=== PATIENT | female | born 1965 | race Caucasian/White ===

== ENCOUNTER → 2017-08-20 | Outpatient (POV) | payer OTHER, SELFPAY | PROVIDERS: Family Provider Physician Assistant; PCP Physician Assistant; Visit Provider Specialist | DX: R20.2 Paresthesia of skin (principal); M79.642 Pain in left hand | CPT/HCPCS: 95886; 95908 ==

== ENCOUNTER → 2017-12-03 09:31 | Outpatient (POV) | payer OTHER, SELFPAY ==
[2017-12-03 09:42] VITALS: BP 147/89; PULSE 84; RESP 22; O2SAT 96; BMI 52.2
--- NOTE | 2017-12-03 09:55 | P.CONS_ITS ---
[facility] Pain Management SOAP Note Subjective:: This patient is a pleasant 52-year-old white female who we are treating for sacroiliitis. She is gotten benefit from previous right SI joint injections. Her last one was back in August. Her pain is just now starting to come back. She is also having some pain on the left side. She is tender over the left SI joint. She does have positive Ellen's test bilaterally. I believe she would benefit from bilateral SI joint injections under fluoroscopy. She is also in the early stages of being approved for gastric sleeve surgery. She will keep us posted as to her progress. She also continues to try to lose weight by dieting and activity. Objective:: Alert and oriented ?3 no acute distress. Tender over both SI joints. Positive Ellne's test bilaterally. Motor strength of the lower extremities is 5/5. There is no gross sensory deficit. Patient does have an antalgic gait. Assessment:: Sacroiliitis bilateral. Degenerative disc disease of lumbar spine with lumbar radiculopathy symptoms. Plan:: We will seek approval and plan on bilateral SI joint injections under fluoroscopy.
== END ==
PROVIDERS: Family Provider Emergency Medicine; PCP Physician Assistant; Visit Provider Anesthesiology
DX: M46.1 Sacroiliitis, not elsewhere classified (principal); M54.16 Radiculopathy, lumbar region
CPT/HCPCS: 99212

== ENCOUNTER → 2017-12-04 09:07 | Outpatient (REF) | payer OTHER, SELFPAY ==
[2017-12-04 14:11] LABS: Basophils % 0.6 % (0.1-2.0); Eosinophils # 0.3 K/mm3 (0.0-0.4); Eosinophils % 4.3 % (0.1-12.0); Hematocrit 44.2 % (37.0-47.0); Lymphocytes # 1.7 K/mm3 (0.7-4.5); Lymphocytes % 24.8 K/mm3 (10-50); Mean Corpuscular HGB Conc 31.6 g/dL (31.8-35.4); Mean Corpuscular Hemoglobin 30.2 pg (27.0-31.2); Mean Corpuscular Volume 95.7 fl (81-99); Mean Platelet Volume 7.9 fl (7.4-10.4); Monocytes # 0.4 K/mm3 (0.1-1.0); Monocytes % 5.4 % (1.7-9.3); Neutrophils # 4.5 K/mm3 (1.8-7.8); Neutrophils % 64.9 % (37.0-80.0); Platelet Count 294 K/mm3 (142-424); Red Blood Count 4.62 M/mm3 (4.20-5.40); Red Cell Distribution Width 13.6 % (11.5-17.5); White Blood Count 6.9 K/mm3 (4.8-10.8)
[2017-12-04 14:12] LABS: Alanine Aminotransferase 31 U/L (12-78); Albumin Level 3.5 gm/dL (3.4-5.0); Albumin/Globulin Ratio 1.1 (1.1-1.8); Alkaline Phosphatase 153 U/L (46-116); Anion Gap 10.9 mEq/L (5-15); Aspartate Amino Transferase 16 U/L (15-37); Bilirubin,Total 0.3 mg/dL (0.2-1.0); Blood Urea Nitrogen 19 mg/dL (7-18); Calcium 8.8 mg/dL (8.5-10.1); Carbon Dioxide 30 mmol/L (21.0-32.0); Chloride 104 mmol/L (98-107); Chol/HDL Ratio 4.4 (1-3.5); Cholesterol 210 mg/dL (140-200); Creatinine,Serum 0.91 mg/dL (0.55-1.02); Estimated Glomerular Filt Rate 65 ml/min (>60); GFR (African American) 79 ML/MIN (>60); Globulin 3.3 gm/dl (1.3-3.2); Glucose 107 mg/dL (74-106); HDL Cholesterol 48 mg/dL (29-89); LDL Cholesterol 137 mg/dL (0-130); Potassium 4.9 mmoL/L (3.5-5.1); Sodium 140 mmol/L (136-145); T4 (Thyroxine) 9.2 ug/dl (4.7-13.3); Thyroid Stimulating Hormone 7.76 uIU/ml (0.358-3.740); Total Protein,Serum 6.8 gm/dL (6.4-8.2); Triglycerides 127 mg/dL (30-200); VLDL Cholesterol 25 mg/dL (0-40)
[2017-12-06 09:29] LABS: Vitamin D 25 Hydroxy 35.2 ng/mL (30.0-100.0)
== END ==
LOC: LAB 09:07
PROVIDERS: Visit Provider Physician Assistant
DX: I10 Essential (primary) hypertension (principal)
CPT/HCPCS: 80053; 80061; 82652; 84436; 84443; 85025

== ENCOUNTER 2017-12-13 11:57 | Day surgery (SDC) | payer OTHER, SELFPAY ==
[2017-12-13 12:10] VITALS: BP 140/76; PULSE 85; RESP 18; TEMP 36.6; O2SAT 98; BMI 50.3
[2017-12-13 12:29] VITALS: BP 159/95; PULSE 81; RESP 18
[2017-12-13 12:31] VITALS: BP 133/86; PULSE 80; RESP 20
--- NOTE | 2017-12-13 12:40 | HMH.PMPROC ---
- Procedure Date: 12/13/17 Time: 12:40 Anesthesiologist:: Valentin Wallis MD Complications:: None Pre-procedure Diagnosis:: Sacroiliitis Post-procedure Diagnosis:: Same Indications for Procedure:: This patient is a pleasant 52-year-old white female who we are treating for bilateral sacroiliitis. She is previously gotten injections into the right SI joint. She did well from these. Her last injection was in August. Her pain is returned. She now has pain over both hips. She is tender over both SI joints. She does have a positive Ellen's test bilaterally. We will do bilateral SI joint injections under fluoroscopy today. Procedure Details:: B/L SI joint injection under fluoroscopy Informed consent was obtained and the risks and benefits of the procedure was explained to the patient. The patient was taken to the procedure room and placed prone on the procedure table. The patient was prepped using ChloraPrep. The skin and subcutaneous tissues overlying the SI joints were anesthetized using lidocaine. I placed a 22-gauge needle first in the left SI joint and second in the right SI joint. Needle placement was confirmed with dye. After this we injected 5 mL bupivacaine 0.25% and Depo-Medrol 40 mg into each SI joint. Patient tolerated the procedure well with no complication. Plan and Disposition:: We will follow-up with her in 2 weeks. We will reevaluate her symptoms at that time.
[2017-12-13 13:10] VITALS: BP 146/69; PULSE 83; RESP 16; O2SAT 98
== END 2017-12-13 12:45 | disposition home or self-care (01) ==
LOC: SC.PAINP 11:58
PROVIDERS: Family Provider Emergency Medicine; PCP Physician Assistant; Visit Provider Anesthesiology
DX: M46.1 Sacroiliitis, not elsewhere classified (principal)
CPT/HCPCS: 27096; G0260; J1030; Q9966

== ENCOUNTER → 2018-01-07 09:20 | Outpatient (POV) | payer OTHER, SELFPAY ==
[2018-01-07 09:40] VITALS: BP 155/82; PULSE 78; RESP 20; BMI 42.9
--- NOTE | 2018-01-07 09:42 | HMH.PAINSOAP ---
[facility] Pain Management SOAP Note Subjective:: Patient is a pleasant 52-year-old white female who presents today for follow-up after her bilateral SI joint injections. Patient states she is 98% better on her left side and 50-70% better on her right side. Patient is currently going through weight loss journey. She is working towards a gastric sleeve. She is past her psychological evaluation. She continues to lose weight. She was originally 298 pounds she is lost 3 pounds in the last week. Patient is biking and walking every other day. Patient states she does not feel that she needs an injection at this time. Patient rates her pain a 4 out of 10 today. ROS General: no recent weight change, no fever, no sleep disturbances Respiratory: no cough, no shortness of air, no recurring pulmonary infections Cardiovascular/Peripheral Vascular: No chest pain, No palpitations, no edema, no shortness of breath. Gastrointestinal: no incontinence, normal bowel movements reported Genitourinary: no incontinence Musculoskeletal: Bilateral SI joint pain Psychiatric: normal mood/ affect, Neurological: [denies weakness in extremities], [denies balance issues] Objective:: Physical Exam General: Alert and oriented x3, no acute distress, pleasant and cooperative, [on room air] Lungs: Resps E/U, Symmetrical chest expansion, Eyes: PERRL Musculoskeletal: Flexion and extension of lumbar spine somewhat guarded secondary to pain, deep tendon reflexes normal, strength in upper and lower extremities [5/5], normal gait noted Neurological: speech clear, semiconductor wafers saw operator equal, no gross sensory deficits Assessment:: Sacroiliitis Plan:: We will follow-up with this patient in 3 months and reassess her symptoms at that time. Patient is doing well at this time. Patient will call us if she needs us prior to this. We will continue with weight loss and exercise. This note was dictated using voice recognition software and may contain errors or omissions
== END ==
PROVIDERS: Family Provider Emergency Medicine; PCP Physician Assistant; Visit Provider Clinical Nurse Specialist Family Health
DX: M46.1 Sacroiliitis, not elsewhere classified (principal)
CPT/HCPCS: 99212

== ENCOUNTER → 2018-03-04 09:56 | Outpatient (REF) | payer OTHER, SELFPAY ==
[2018-03-04 14:07] LABS: Basophils % 0.4 % (0.1-2.0); Eosinophils # 0.3 K/mm3 (0.0-0.4); Eosinophils % 3.7 % (0.1-12.0); Hematocrit 45.8 % (37.0-47.0); Hemoglobin 14.4 g/dL (12.2-16.2); Lymphocytes # 1.9 K/mm3 (0.7-4.5); Lymphocytes % 25.6 K/mm3 (10-50); Mean Corpuscular HGB Conc 31.5 g/dL (31.8-35.4); Mean Corpuscular Hemoglobin 28.4 pg (27.0-31.2); Mean Corpuscular Volume 90.2 fl (81-99); Mean Platelet Volume 7.9 fl (7.4-10.4); Monocytes # 0.4 K/mm3 (0.1-1.0); Monocytes % 5.1 % (1.7-9.3); Neutrophils # 4.7 K/mm3 (1.8-7.8); Neutrophils % 65.2 % (37.0-80.0); Platelet Count 340 K/mm3 (142-424); Red Blood Count 5.08 M/mm3 (4.20-5.40); Red Cell Distribution Width 13.4 % (11.5-17.5); White Blood Count 7.3 K/mm3 (4.8-10.8)
[2018-03-04 14:39] LABS: Alanine Aminotransferase 18 U/L (12-78); Albumin Level 3.6 gm/dL (3.4-5.0); Albumin/Globulin Ratio 1.1 (1.1-1.8); Alkaline Phosphatase 136 U/L (46-116); Anion Gap 15.4 mEq/L (5-15); Aspartate Amino Transferase 14 U/L (15-37); Bilirubin,Total 0.5 mg/dL (0.2-1.0); Blood Urea Nitrogen 13 mg/dL (7-18); Calcium 9.3 mg/dL (8.5-10.1); Carbon Dioxide 27 mmol/L (21.0-32.0); Chloride 101 mmol/L (98-107); Chol/HDL Ratio 4.1 (1-3.5); Cholesterol 192 mg/dL (140-200); Creatinine,Serum 0.76 mg/dL (0.55-1.02); Estimated Glomerular Filt Rate 80 ml/min (>60); GFR (African American) 97 ML/MIN (>60); Globulin 3.4 gm/dl (1.3-3.2); Glucose 106 mg/dL (74-106); HDL Cholesterol 47 mg/dL (29-89); LDL Cholesterol 121 mg/dL (0-130); Potassium 4.4 mmoL/L (3.5-5.1); Sodium 139 mmol/L (136-145); Thyroid Stimulating Hormone 6.23 uIU/ml (0.358-3.740); Triglycerides 119 mg/dL (30-200); VLDL Cholesterol 24 mg/dL (0-40)
[2018-03-05 12:49] LABS: Vitamin D 25 Hydroxy 43.7 ng/mL (30.0-100.0)
== END ==
LOC: LAB 09:56
PROVIDERS: Visit Provider Physician Assistant
DX: E03.9 Hypothyroidism, unspecified (principal); E78.5 Hyperlipidemia, unspecified
CPT/HCPCS: 80053; 80061; 82652; 84436; 84443; 85025

== ENCOUNTER → 2018-04-08 08:52 | Outpatient (POV) | payer OTHER, SELFPAY ==
[2018-04-08 09:21] VITALS: BP 155/76; PULSE 76; RESP 18; O2SAT 98; BMI 48.0
--- NOTE | 2018-04-08 09:46 | HMH.PAINSOAP ---
[facility] Pain Management SOAP Note Subjective:: Patient is a pleasant 51-year-old white female who presents today for discussion in regards to her increased back pain and left leg pain. Patient is having increased back pain. Patient is currently going through weight loss journey. She has stopped smoking. She is working towards a gastric sleeve. She has lost over 20 pounds. She has passed her psychological evaluation and continues to lose weight. Patient is biking and walking every other day. Patient states that her pain is about a 6 out of 10 and it is worse in her left foot at this time. ROS General: no recent weight change, no fever, no sleep disturbances Respiratory: no cough, no shortness of air, no recurring pulmonary infections Cardiovascular/Peripheral Vascular: No chest pain, No palpitations, no edema, no shortness of breath. Gastrointestinal: no incontinence, normal bowel movements reported Genitourinary: no incontinence Musculoskeletal: Back pain, left leg [place] Psychiatric: normal mood/ affect Neurological: [denies weakness in extremities], [denies balance issues] Objective:: Physical Exam General: Alert and oriented x3, no acute distress, pleasant and cooperative, [on room air] Lungs: Resps E/U, Symmetrical chest expansion, Eyes: PERRL Musculoskeletal: Flexion and extension of lumbar spine somewhat guarded secondary to pain, deep tendon reflexes normal, strength in upper and lower extremities [5/5], antalgic gait noted, positive straight leg raise test on the left side at 30? Neurological: speech clear, roof truss detailer equal, no gross sensory deficits Assessment:: Degenerative disc disease of the lumbar spine with lumbar radiculopathy Plan:: We will get a lumbar epidural steroid injection for this patient at L4-L5. Is not on any anticoagulation therapy. Patient's tried and failed physical therapy and stretching therapy. Patient has had good relief with these injections in the past. Wants to continue to be as functional as possible prior to her gastric surgery. This note was dictated using voice recognition software and may contain errors or omissions
--- NOTE | 2018-04-08 09:52 | P.CONS_ITS ---
[facility] Pain Management SOAP Note Subjective:: Patient is a pleasant 51-year-old white female who presents today for discussion in regards to her increased back pain and left leg pain. Patient is having increased back pain. Patient is currently going through weight loss journey. She has stopped smoking. She is working towards a gastric sleeve. She has lost over 20 pounds. She has passed her psychological evaluation and continues to lose weight. Patient is biking and walking every other day. Patient states that her pain is about a 6 out of 10 and it is worse in her left foot at this time. ROS General: no recent weight change, no fever, no sleep disturbances Respiratory: no cough, no shortness of air, no recurring pulmonary infections Cardiovascular/Peripheral Vascular: No chest pain, No palpitations, no edema, no shortness of breath. Gastrointestinal: no incontinence, normal bowel movements reported Genitourinary: no incontinence Musculoskeletal: Back pain, left leg [place] Psychiatric: normal mood/ affect Neurological: [denies weakness in extremities], [denies balance issues] Objective:: Physical Exam General: Alert and oriented x3, no acute distress, pleasant and cooperative, [ on room air] Lungs: Resps E/U, Symmetrical chest expansion, Eyes: PERRL Musculoskeletal: Flexion and extension of lumbar spine somewhat guarded secondary to pain, deep tendon reflexes normal, strength in upper and lower extremities [5/5], antalgic gait noted, positive straight leg raise test on the left side at 30? Neurological: speech clear, web press operator apprentice equal, no gross sensory deficits Assessment:: Degenerative disc disease of the lumbar spine with lumbar radiculopathy Plan:: We will get a lumbar epidural steroid injection for this patient at L4-L5. Is not on any anticoagulation therapy. Patient's tried and failed physical therapy and stretching therapy. Patient has had good relief with these injections in the past. Wants to continue to be as functional as possible prior to her gastric surgery. This note was dictated using voice recognition software and may contain errors or omissions
== END ==
PROVIDERS: Family Provider Emergency Medicine; PCP Physician Assistant; Visit Provider Clinical Nurse Specialist Family Health
DX: M54.16 Radiculopathy, lumbar region (principal)
CPT/HCPCS: 99212

== ENCOUNTER → 2018-04-12 09:42 | Outpatient (CLI) | payer OTHER, SELFPAY ==
[2018-04-12 10:41] VITALS: PULSE 83; PULSE 85
== END ==
PROVIDERS: Family Provider Emergency Medicine; PCP Physician Assistant; Visit Provider Physician Assistant
DX: R06.00 Dyspnea, unspecified (principal)
CPT/HCPCS: 94060; 94640

== ENCOUNTER → 2018-05-06 09:41 | Outpatient (POV) | payer OTHER, SELFPAY ==
[2018-05-06 09:53] VITALS: BP 129/77; PULSE 67; RESP 18; O2SAT 96; BMI 47.5
--- NOTE | 2018-05-06 10:03 | HMH.PAINSOAP ---
[facility] Pain Management SOAP Note Subjective:: Patient is a pleasant 53-year-old white female who we are treating for low back pain with left leg pain. Patient is status post one lumbar epidural steroid injection and states that she is in 0 pain today. Patient is doing extremely well. Patient is working toward a gastric sleeve. Patient has lost 33 pounds recently. Patient is feeling well good. ROS General: no recent weight change, no fever, no sleep disturbances Respiratory: no cough, no shortness of air, no recurring pulmonary infections Cardiovascular/Peripheral Vascular: No chest pain, No palpitations, no edema, no shortness of breath. Gastrointestinal: no incontinence, normal bowel movements reported Genitourinary: no incontinence Musculoskeletal: Back pain Psychiatric: normal mood/ affect Neurological: [denies weakness in extremities], [denies balance issues] Objective:: Physical Exam General: Alert and oriented x3, no acute distress, pleasant and cooperative, [on room air] Lungs: Resps E/U, Symmetrical chest expansion, Eyes: PERRL Musculoskeletal: Flexion and extension of lumbar spine somewhat guarded secondary to pain, deep tendon reflexes normal, strength in upper and lower extremities [5/5], normal gait noted Neurological: speech clear, quality control technician equal, no gross sensory deficits Assessment:: Degenerative disc disease of the lumbar spine with lumbar radiculopathy symptoms Plan:: We will follow-up the patient on an as-needed basis. Patient is going to call our office if she needs anything. This note was dictated using voice recognition software and may contain errors or omissions
--- NOTE | 2018-05-06 10:08 | XR_ITS ---
XR chest 2V HISTORY: Shortness of breath ITS.REASON: mild obstructive airway disease on PFT ORDERING PHYSICIAN: Alexandra Zepeda PATIENT AGE: 53 years COMPARISON: PA and lateral chest 12/16/2014 FINDINGS: The cardiomediastinal silhouette and pulmonary vascularity are within normal limits. The lungs are clear without infiltrates, suspicious nodules, or pleural effusions. There are mild degenerative changes lower thoracic spine.. IMPRESSION: Negative chest, no acute finding
== END ==
LOC: SC.PAIN 09:42 → RAD 10:08
PROVIDERS: Family Provider Emergency Medicine; PCP Physician Assistant; Visit Provider Clinical Nurse Specialist Family Health
DX: M51.16 Intervertebral disc disorders with radiculopathy, lumbar region (principal)
CPT/HCPCS: 71046; 99213

== ENCOUNTER → 2018-05-08 07:57 | Outpatient (CLI) | payer OTHER, SELFPAY ==
--- NOTE | 2018-05-08 07:58 | XR_ITS ---
XR foot wt bearing LT 3V HISTORY: ITS.REASON: pain ORDERING PHYSICIAN: Iram Landin DPM PATIENT AGE: 53 years COMPARISON: None FINDINGS: There is minimal hallux valgus and borderline pes planus. No fracture or dislocation. Mild hypertrophic changes are present at the distal aspect of the first metatarsal. There are osteoarthritic changes of the anterior aspect of the ankle joint with bony debris and osteophyte formation. No lytic or blastic change IMPRESSION: Minimal hallux valgus and borderline pes planus with osteoarthritic change of the ankle joint
--- NOTE | 2018-05-08 07:58 | XR_ITS ---
XR foot wt bearing RT 3V HISTORY: ITS.REASON: pain ORDERING PHYSICIAN: Iram Landin DPM PATIENT AGE: 53 years COMPARISON: None FINDINGS: There are mild osteoarthritic changes of the first metatarsophalangeal joint. Subcortical cystic change involves the distal aspect of the first metatarsal at 5 mm and may be due to a small subarticular cyst. There is mild flattening of the head of the second without sclerosis.. There is borderline pes planus. Flexion of the second toe. There are osteoarthritic changes of the ankle joint with bony hypertrophic change posteriorly involving the talus. Minimal hallux valgus IMPRESSION: Minimal hallux valgus with osteoarthritis of the first MTP joint with small subarticular cyst and mild pes planus
== END ==
PROVIDERS: Visit Provider Podiatrist
DX: B35.1 Tinea unguium (principal)
CPT/HCPCS: 73630; 87102; 87206; 87220

== ENCOUNTER → 2018-06-27 10:07 | Outpatient (REF) | payer OTHER, SELFPAY ==
[2018-06-27 14:06] LABS: Alanine Aminotransferase 19 U/L (12-78); Albumin Level 3.5 gm/dL (3.4-5.0); Albumin/Globulin Ratio 1.1 (1.1-1.8); Alkaline Phosphatase 160 U/L (46-116); Anion Gap 11.4 mEq/L (5-15); Aspartate Amino Transferase 14 U/L (15-37); Bilirubin,Total 0.4 mg/dL (0.2-1.0); Blood Urea Nitrogen 17 mg/dL (7-18); Calcium 9.3 mg/dL (8.5-10.1); Carbon Dioxide 30 mmol/L (21.0-32.0); Chloride 103 mmol/L (98-107); Cholesterol 222 mg/dL (140-200); Creatinine,Serum 0.88 mg/dL (0.55-1.02); Estimated Glomerular Filt Rate 67 ml/min (>60); GFR (African American) 82 ML/MIN (>60); Globulin 3.2 gm/dl (1.3-3.2); Glucose 103 mg/dL (74-106); HDL Cholesterol 56 mg/dL (29-89); LDL Cholesterol 139 mg/dL (0-130); Potassium 4.4 mmoL/L (3.5-5.1); Sodium 140 mmol/L (136-145); T4 (Thyroxine) 9.1 ug/dl (4.7-13.3); Thyroid Stimulating Hormone 4.84 uIU/ml (0.358-3.740); Total Protein,Serum 6.7 gm/dL (6.4-8.2); Triglycerides 137 mg/dL (30-200); VLDL Cholesterol 27 mg/dL (0-40)
[2018-06-27 15:12] LABS: Basophils % 0.5 % (0.1-2.0); Eosinophils # 0.2 K/mm3 (0.0-0.4); Eosinophils % 3.5 % (0.1-12.0); Hematocrit 40.9 % (37.0-47.0); Hemoglobin 13.1 g/dL (12.2-16.2); Lymphocytes # 1.8 K/mm3 (0.7-4.5); Lymphocytes % 31.3 K/mm3 (10-50); Mean Corpuscular Hemoglobin 29.4 pg (27.0-31.2); Mean Corpuscular Volume 91.9 fl (81-99); Mean Platelet Volume 7.5 fl (7.4-10.4); Monocytes # 0.3 K/mm3 (0.1-1.0); Monocytes % 5.5 % (1.7-9.3); Neutrophils # 3.5 K/mm3 (1.8-7.8); Neutrophils % 59.3 % (37.0-80.0); Platelet Count 332 K/mm3 (142-424); Red Blood Count 4.44 M/mm3 (4.20-5.40); Red Cell Distribution Width 14.6 % (11.5-17.5); White Blood Count 5.9 K/mm3 (4.8-10.8)
[2018-06-28 10:05] LABS: Vitamin D 25 Hydroxy 35.8 ng/mL (30.0-100.0)
== END ==
LOC: LAB 10:07
PROVIDERS: Visit Provider Nurse Practitioner Family
DX: E07.9 Disorder of thyroid, unspecified (principal); R53.83 Other fatigue
CPT/HCPCS: 80053; 80061; 82652; 84436; 84443; 85025

== ENCOUNTER → 2018-07-29 10:48 | Outpatient (POV) | payer OTHER, SELFPAY | PROVIDERS: Visit Provider Specialist | DX: M79.671 Pain in right foot (principal); M79.672 Pain in left foot | CPT/HCPCS: 95886; 95908 ==

== ENCOUNTER → 2018-08-15 14:39 | Outpatient (CLI) | payer OTHER, SELFPAY ==
--- NOTE | 2018-08-15 14:41 | CT_ITS ---
CT chest wo con HISTORY: Solitary pulmonary nodule, follow-up abnormal chest x-ray, pulmonary nodule ITS.REASON: RML nodule on CXR 07/13/18 ORDERING PHYSICIAN: SHARONA Dunn PATIENT AGE: 53 years COMPARISON: None Technique: Axial images obtained with sagittal and coronal reformats. All CT scans at the facility use one or more dose reduction, viz: automated exposure control, ma/kV adjustment per patient size (including targeted exams where dose is matched to indication, i.e. head), or iterative reconstruction technique. FINDINGS: There are coronary artery calcifications. Normal heart size without evidence of pericardial effusion. No mediastinal or hilar mass. Scattered small nodes are present in the mediastinum and axilla. 5 mm subpleural nodule right upper lobe posteriorly noncalcified and nonspecific. No central obstructing lesions evident. No suspicious pulmonary nodules are apparent. No effusions or infiltrates. Upper abdominal images shows prior gastric sleeve surgery. There are 2 calcified gallstones measuring up to 2 cm. Low-density changes are present involving the medial aspect of the spleen. This is nonspecific and measures 4.4 x 3 cm and could be due to an area of splenic infarction. There are no previous exams available for comparison. Follow-up is suggested. No acute bony anomalies. Fatty density is present in the left paraspinal muscles at the L1 region posteriorly on the left system with lipoma IMPRESSION: 1. No suspicious pulmonary nodules evident. 2. 5 mm subpleural nodule right upper lobe posteriorly. 6-12 month follow up suggested. 3. Low-density changes medial aspect of the spleen which could be due to prior splenic infarction. Stability may be confirmed with follow-up 4. Cholelithiasis
== END ==
PROVIDERS: PCP Physician Assistant; Visit Provider Physician Assistant
DX: R91.1 Solitary pulmonary nodule (principal)
CPT/HCPCS: 71250

== ENCOUNTER → 2018-08-29 09:52 | Outpatient (CLI) | payer OTHER, SELFPAY ==
--- NOTE | 2018-08-29 09:54 | CT_ITS ---
CT abdomen w con CLINICAL INDICATION: Follow-up splenic lesion ITS.REASON: changes in Spleen noted on CT chest ORDERING PHYSICIAN: SHARONA Dunn PATIENT AGE: 53 years COMPARISON: 08/15/2018 TECHNIQUE: Axial images obtained with sagittal and coronal reformats. All CT scans at the facility use one or more dose reduction, viz: automated exposure control, ma/kV adjustment per patient size (including targeted exams where dose is matched to indication, i.e. head), or iterative reconstruction technique. PROCEDURE: Oral Contrast: None IV Contrast: 75 mL of [id number]. FINDINGS: Lung bases are clear. There are multiple gallstones. There has been prior gastric sleeve surgery. The pancreas, adrenal glands, and kidneys have an unremarkable appearance. There is a well-defined geographic area of decreased attenuation involving the medial aspect of the spleen which measures up to 3.9 cm AP and 2 cm transverse. This may represent an area of splenic infarction appears slightly smaller than when compared to the previous study although that study was performed without contrast.. This may be due to an area of splenic infarction. There are few small lymph nodes in the retroperitoneum. The kidneys have an unremarkable appearance. There is some minimal stranding of the fat adjacent to the medial aspect of the spleen which is unchanged. No intestinal obstruction or free air. There is some increased density along the intra-abdominal wall right and could be due to prior surgery. There is degenerative disc disease at L4-L5. IMPRESSION: 1. 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 Suggest 3 month follow-up. 2. Cholelithiasis
== END ==
PROVIDERS: PCP Physician Assistant; Visit Provider Physician Assistant
DX: R93.89 Abnormal findings on diagnostic imaging of other specified body structures (principal); D73.5 Infarction of spleen
CPT/HCPCS: 74160; Q9967

== ENCOUNTER → 2018-09-02 13:03 | Outpatient (POV) | payer OTHER, SELFPAY ==
[2018-09-02 14:03] VITALS: BP 113/54; PULSE 78; RESP 18; O2SAT 99; BMI 44.1
--- NOTE | 2018-09-03 08:47 | HMH.PAINSOAP ---
[facility] Pain Management SOAP Note Subjective:: She is a pleasant 53-year-old white female who we are treating for low back pain and left leg pain. Patient is status post 6 weeks from gastric sleeve surgery. She rates her pain a 3 out of 10 and is lost 50 pounds. She is doing very well. Patient and I discussed about moving forward with our plans of care. ROS General: no recent weight change, no fever, no sleep disturbances Respiratory: no cough, no shortness of air, no recurring pulmonary infections Cardiovascular/Peripheral Vascular: No chest pain, No palpitations, no edema, no shortness of breath. Gastrointestinal: no incontinence, normal bowel movements reported Genitourinary: no incontinence Musculoskeletal: Back pain at times Psychiatric: normal mood/ affect Neurological: [denies weakness in extremities], [denies balance issues] Objective:: Physical Exam General: Alert and oriented x3, no acute distress, pleasant and cooperative, [on room air] Lungs: Resps E/U, Symmetrical chest expansion, Eyes: PERRL Musculoskeletal: Flexion and extension of lumbar spine somewhat guarded secondary to pain, deep tendon reflexes normal, strength in upper and lower extremities [5/5], [abnormal gait noted] Neurological: speech clear, special education tutor equal, no gross sensory deficits Assessment:: Degenerative disc disease lumbar spine with lumbar radiculopathy Plan:: Patient and I discussed using Voltaren gel. She was going to try this she was prescribed some previously. Patient is to follow-up in 1 month and we will reassess her at that time. I discussed with her staying active. This note was dictated using voice recognition software and may contain errors or omissions
== END ==
PROVIDERS: PCP Physician Assistant; Visit Provider Clinical Nurse Specialist Family Health
DX: M51.16 Intervertebral disc disorders with radiculopathy, lumbar region (principal)
CPT/HCPCS: 99213

== ENCOUNTER → 2018-10-07 10:17 | Outpatient (POV) | payer OTHER, SELFPAY ==
[2018-10-07 10:20] VITALS: BP 119/57; PULSE 63; RESP 18; O2SAT 98; BMI 42.0
--- NOTE | 2018-10-07 10:35 | HMH.PAINSOAP ---
[facility] Pain Management SOAP Note Subjective:: Patient is a pleasant 53-year-old white female who we are treating for low back pain. Patient is status post gastric bypass surgery by 12 weeks. Patient rates her pain a 5 out of 10 she is increasing her activity she is having some SI joint pain. Patient has not been cleared from her surgeon yet. She has lost quite a bit of weight. We will set her up for dry needling to see if this is beneficial for her low back pain. ROS General: no recent weight change, no fever, no sleep disturbances Respiratory: no cough, no shortness of air, no recurring pulmonary infections Cardiovascular/Peripheral Vascular: No chest pain, No palpitations, no edema, no shortness of breath. Gastrointestinal: no incontinence, normal bowel movements reported Genitourinary: no incontinence Musculoskeletal: Back pain, SI joint pain Psychiatric: normal mood/ affect Neurological: [denies weakness in extremities], [denies balance issues] Objective:: Physical Exam General: Alert and oriented x3, no acute distress, pleasant and cooperative, [on room air] Lungs: Resps E/U, Symmetrical chest expansion, Eyes: PERRL Musculoskeletal: Flexion and extension of lumbar spine somewhat guarded secondary to pain, deep tendon reflexes normal, strength in upper and lower extremities [5/5], antalgic gait noted Neurological: speech clear, speedometer inspector equal, no gross sensory deficits Assessment:: Degenerative disc disease lumbar spine with lumbar radiculopathy and sacroiliitis Plan:: Patient will be set up for dry needling we will see if this is beneficial for her. I will follow-up with her after this. Patient is going to discuss with her gastric bypass physician if she can have steroid injections and when. Dr. aWllis has reviewed this note and agrees with this plan of care. This note was dictated using voice recognition software and may contain errors or omissions
== END ==
PROVIDERS: PCP Physician Assistant; Visit Provider Clinical Nurse Specialist Family Health
DX: M51.16 Intervertebral disc disorders with radiculopathy, lumbar region (principal); M46.1 Sacroiliitis, not elsewhere classified; Z98.84 Bariatric surgery status

== ENCOUNTER → 2018-11-04 10:40 | Outpatient (CLI) | payer OTHER, SELFPAY ==
[2018-11-04 11:18] LABS: Basophils % 0.4 % (0.1-2.0); Eosinophils # 0.2 K/mm3 (0.0-0.4); Eosinophils % 3.7 % (0.1-12.0); Hematocrit 41.3 % (37.0-47.0); Hemoglobin 13.4 g/dL (12.2-16.2); Lymphocytes # 2.1 K/mm3 (0.7-4.5); Lymphocytes % 38.9 % (10-50); Mean Corpuscular HGB Conc 32.4 g/dL (31.8-35.4); Mean Corpuscular Hemoglobin 29.2 pg (27.0-31.2); Mean Corpuscular Volume 90.1 fl (81-99); Mean Platelet Volume 7.5 fl (7.4-10.4); Monocytes # 0.3 K/mm3 (0.1-1.0); Monocytes % 5.3 % (1.7-9.3); Neutrophils # 2.8 K/mm3 (1.8-7.8); Neutrophils % 51.7 % (37.0-80.0); Platelet Count 317 K/mm3 (142-424); Red Blood Count 4.59 M/mm3 (4.20-5.40); Red Cell Distribution Width 14.3 % (11.5-17.5); White Blood Count 5.4 K/mm3 (4.8-10.8)
[2018-11-04 11:37] LABS: Hemoglobin A1C 5.8 % (0.0-7.0)
[2018-11-04 13:39] LABS: Alanine Aminotransferase 15 U/L (12-78); Albumin Level 3.5 gm/dL (3.4-5.0); Albumin/Globulin Ratio 1.2 (1.1-1.8); Alkaline Phosphatase 152 U/L (46-116); Anion Gap 13.9 mEq/L (5-15); Aspartate Amino Transferase 14 U/L (15-37); Bilirubin,Total 0.3 mg/dL (0.2-1.0); Blood Urea Nitrogen 10 mg/dL (7-18); Calcium 9.1 mg/dL (8.5-10.1); Carbon Dioxide 29 mmol/L (21.0-32.0); Chloride 102 mmol/L (98-107); Chol/HDL Ratio 3.3 (1-3.5); Cholesterol 173 mg/dL (140-200); Creatinine,Serum 0.74 mg/dL (0.55-1.02); Estimated Glomerular Filt Rate 82 ml/min (>60); GFR (African American) 100 ML/MIN (>60); Glucose 83 mg/dL (74-106); HDL Cholesterol 52 mg/dL (29-89); Iron 55 ug/dl (28-170); LDL Cholesterol 103 mg/dL (0-130); Magnesium 1.9 mg/dL (1.4-2.2); Phosphorous 4.4 mg/dL (2.4-4.9); Potassium 3.9 mmoL/L (3.5-5.1); Sodium 141 mmol/L (136-145); Thyroid Stimulating Hormone 0.08 uIU/ml (0.358-3.740); Total Protein,Serum 6.5 gm/dL (6.4-8.2); Triglycerides 90 mg/dL (30-200); VLDL Cholesterol 18 mg/dL (0-40)
[2018-11-04 14:27] LABS: Amphetamine/Metha Screen,Urine Negative ng/mL (<1000); Barbiturates Screen,Urine Negative ng/mL (<200); Benzodiazepines Screen,Urine Negative ng/mL (<200); Cannabinoid Screen,Urine Negative ng/mL (<50); Cocaine Screen,Urine Negative ng/mL (<300); Methadone Screen,Urine Negative ng/mL (<300); Opiate Screen,Urine Negative ng/mL (<300); Phencyclidine Screen,Urine Negative ng/mL (<25)
[2018-11-04 14:40] LABS: Ferritin 371 ng/mL (8-388)
[2018-11-05 09:57] LABS: Folate >20.0 ng/mL (>3.0); Vitamin D 25 Hydroxy 49.8 ng/mL (30.0-100.0)
[2018-11-06 07:46] LABS: Parathyroid Hormone Intact 33 pg/mL (15-65); Prealbumin 20 mg/dL (10-36)
[2018-11-07 09:45] LABS: Vitamin B1 148.5 nmol/L (66.5-200.0)
[2018-11-07 09:46] LABS: Vitamin E Alpha Tocopherol 9.3 mg/L (7.0-25.1)
[2018-11-08 15:24] LABS: Methylmalonic Acid 113 nmol/L (0-378)
[2018-11-11 14:15] LABS: Vitamin A 36.1 ug/dL (20.1-62.0)
== END ==
PROVIDERS: PCP Nurse Practitioner Family; Visit Provider Physician Assistant
DX: Z79.899 Other long term (current) drug therapy (principal); R63.4 Abnormal weight loss; E66.01 Morbid (severe) obesity due to excess calories; E55.9 Vitamin D deficiency, unspecified; E78.5 Hyperlipidemia, unspecified; Z98.84 Bariatric surgery status
CPT/HCPCS: 36415; 80053; 80061; 80305; 82131; 82652; 82728; 82746; 83036; 83540; 83735; 83970; 84100; 84134; 84425; 84443; 84446; 84590; 85025

== ENCOUNTER 2018-11-28 09:30 | Outpatient (RCR) | payer OTHER, SELFPAY ==
--- NOTE | 2018-10-09 15:36 | HMH.PTOPEV ---
PT Outpatient Evaluation Rehab PT Outpatient Evaluation Start: 10/09/18 15:18 Freq: Status: Active Protocol: Document 10/09/18 15:19 ANDERSPROMISE (Rec: 10/09/18 15:36 MITCHELL [id number]) Electronically Signed By Mike Callahan PT 10/09/18 15:19 Outpatient Therapy Subjective History Subjective History This is the initial Physical Therapy evaluation for Bushra Lundberg. Pt is a 53 y/o female referred to PT for c/o LBP and SIJ pain. Pt reports she has had LBP for years and has had over 14 steroid spinals. Pt reports she recently had bariatric surgery and began exercising ~ 3 weeks ago. Pt reports her SIJ pain began ~ 3 weeks ago. Chief Complaint Pain Spasms Symptom Type Sharp Stabbing Symptoms Relieved By Rest/Positioning OTC Meds Symptoms Aggravated By Standing Twisting Walking Prior Functional Limitations Lifting Housework Sleeping Recreation Activity Walking Bending/Stooping Current Functional Limitations Lifting Housework Sleeping Recreation Activity Bending/Stooping Symptom Description Constant but Variable Level of pain today (0-10) 4 Pain scale - at its best (0-10) 2 Pain scale - at its worst (0-10) 7 Lumbopelvic Eval Posture Lumbar Spine Posture Standing Position Flattened Assistive device Assistive Devices None / NA Palapation tenderness bilateral thoracic spinal tenderness No lumbar spinal tenderness Yes paraspinal tenderness No buttock tenderness No tenderness over symphysis pubis No Lumbar/Sacral Palpation Findings Tenderness Lumbar/Sacral Palpation Overall Comment TTP along B SIJ Range of Motion Lumbar Spine Active Flexion Range of 60 Motion (degrees) Lumbar Spine Active Extension Range of 10 Motion (degrees) Left Lumbar Spine Lateral Flexion Active 30 Range of Motion (degrees) Right Lumbar Spine Lateral Flexion 30 Active Range of Motion (degrees) Lumbar Spine ROM Limitations Pain Special Tests
== END 2018-11-28 09:35 | disposition home or self-care (01) ==
LOC: PT 09:30
PROVIDERS: Visit Provider Clinical Nurse Specialist Family Health
DX: M53.3 Sacrococcygeal disorders, not elsewhere classified (principal)
CPT/HCPCS: 97010; 97014; 97033; 97035; 97110; 97140; 97163; G0283

== ENCOUNTER → 2018-12-16 14:39 | Outpatient (POV) | payer OTHER, SELFPAY ==
[2018-12-16 15:21] VITALS: BP 127/68; PULSE 70; RESP 18; O2SAT 98; BMI 40.7
--- NOTE | 2018-12-17 08:36 | HMH.PAINSOAP ---
[facility] Pain Management SOAP Note Subjective:: Patient is a pleasant 53-year-old white female who presents today for follow-up. Patient's doing well with her physical therapy. Patient is down 70 pounds since her weight loss surgery. Overall she is doing well she has been released by her surgeon for injective therapy. Patient states that most of her pain is over her left SI at this time. She has had injections in the past with up to 80% relief for several months. Patient would like to repeat this. She is not on any anticoagulation therapy. She is continuing physical therapy currently ROS General: no unintentional recent weight change, no fever, no sleep disturbances Respiratory: no cough, no shortness of air, no recurring pulmonary infections Cardiovascular/Peripheral Vascular: No chest pain, No palpitations, no edema, no shortness of breath. Gastrointestinal: no incontinence, normal bowel movements reported Genitourinary: no incontinence Musculoskeletal: Left SI joint pain Psychiatric: normal mood/ affect, Neurological: [denies weakness in extremities], [denies balance issues] Objective:: Physical Exam General: Alert and oriented x3, no acute distress, pleasant and cooperative, [on room air] Lungs: Resps E/U, Symmetrical chest expansion, Eyes: PERRL Musculoskeletal: Flexion and extension of lumbar spine somewhat guarded secondary to pain, deep tendon reflexes normal, strength in upper and lower extremities [5/5], antalgic gait noted, positive Nahid's test, positive thigh thrust test and positive SI joint compression test on the left side Neurological: speech clear, level vial curvature gauger equal, no gross sensory deficits Assessment:: Sacroiliitis Plan:: We will set the patient for left SI joint injection. Given the efficacy of this in the past I do believe it would be beneficial. Dr. Wallis has reviewed this note and agrees with this plan of care. This note was dictated using voice recognition software and may contain errors or omissions
--- NOTE | 2018-12-17 08:39 | P.CONS_ITS ---
[facility] Pain Management SOAP Note Subjective:: Patient is a pleasant 53-year-old white female who presents today for follow-up. Patient's doing well with her physical therapy. Patient is down 70 pounds since her weight loss surgery. Overall she is doing well she has been released by her surgeon for injective therapy. Patient states that most of her pain is over her left SI at this time. She has had injections in the past with up to 80% relief for several months. Patient would like to repeat this. She is not on any anticoagulation therapy. She is continuing physical therapy currently ROS General: no unintentional recent weight change, no fever, no sleep disturbances Respiratory: no cough, no shortness of air, no recurring pulmonary infections Cardiovascular/Peripheral Vascular: No chest pain, No palpitations, no edema, no shortness of breath. Gastrointestinal: no incontinence, normal bowel movements reported Genitourinary: no incontinence Musculoskeletal: Left SI joint pain Psychiatric: normal mood/ affect, Neurological: [denies weakness in extremities], [denies balance issues] Objective:: Physical Exam General: Alert and oriented x3, no acute distress, pleasant and cooperative, [on room air] Lungs: Resps E/U, Symmetrical chest expansion, Eyes: PERRL Musculoskeletal: Flexion and extension of lumbar spine somewhat guarded secondary to pain, deep tendon reflexes normal, strength in upper and lower extremities [5/5], antalgic gait noted, positive Nahid's test, positive thigh thrust test and positive SI joint compression test on the left side Neurological: speech clear, panel assembler equal, no gross sensory deficits Assessment:: Sacroiliitis Plan:: We will set the patient for left SI joint injection. Given the efficacy of this in the past I do believe it would be beneficial. Dr. Wallis has reviewed this note and agrees with this plan of care. This note was dictated using voice recognition software and may contain errors or omissions
== END ==
PROVIDERS: PCP Physician Assistant; Visit Provider Clinical Nurse Specialist Family Health
DX: M46.1 Sacroiliitis, not elsewhere classified (principal)
CPT/HCPCS: 99212

== ENCOUNTER → 2018-12-18 09:30 | Outpatient (CLI) | payer OTHER, SELFPAY ==
--- NOTE | 2018-12-18 09:43 | CT_ITS ---
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 ITS.REASON: 3 mth f/u ORDERING PHYSICIAN: SHARONA Dunn PATIENT AGE: 53 years COMPARISON: CT abdomen from 08/29/[address] chest without contrast 08/15/2018 TECHNIQUE: IV contrast administered: 75 cc Optiray 350:.. Scanning performed at 30 seconds, 60 seconds post contrast, as well as 5 minute delayed image set Axial images obtained the abdomen and pelvis,, with axial sagittal and coronal reformats. All CT scans at the facility use one or more dose reduction, viz: automated exposure control, ma/kV adjustment per patient size (including targeted exams where dose is matched to indication, i.e. head), or iterative reconstruction technique. FINDINGS: Lung bases clear. Heart normal size. Abdomen Multiple Gallstones again noted- largest measuring nearly 2 cm towards the neck of the gallbladder .. No gallbladder wall thickening. No biliary ductal dilatation. Liver. Unremarkable.Pancreas unremarkable. Adrenals unremarkable. Kidneys. Satisfactory. Unremarkable. SPLEEN. The Small low-density area at the medial aspect the spleen is smaller & less evident today vs previous August & July 2018. This area best seen on the 60 secondpostcontrast image set today.. Likely reflecting a small resolving splenic infarct or resolving small splenic hematoma Further regression-now measuring only 2 cm AP x 11 mm transverse 13 mm height. (Previously on August this measured nearly 4 cm AP x 2.4 cm wide x 3.7 cm height). ------- Other observations . Postsurgical changes at the stomach again noted. Stable Generous stool seen throughout the visualized portions of the large bowel. Reflect mild constipation. The terminal ileum appears normal. Appendix upper normal wall thickness but stable with no inflammatory changes otherwise. Lower pelvis unremarkable. Degenerative changes lower L-spine most evident at L4/5 disc bulge at each of the lower levels along with facet hypertrophy yields mild spinal stenosis and bilateral foraminal encroachment most evident at L4/5. IMPRESSION 1. Further significant regression of the small low-density area at medial aspect of the spleen, since August2018. Findings Compatible with resolving small infarct or hematoma. 2. Other observations again noted: ... Cholelithiasis ... Previous gastric sleeve surgery
== END ==
PROVIDERS: PCP Emergency Medicine; Visit Provider Physician Assistant
DX: D73.5 Infarction of spleen (principal)
CPT/HCPCS: 74177; Q9967

== ENCOUNTER → 2019-01-28 09:26 | Outpatient (POV) | payer OTHER, SELFPAY ==
[2019-01-28 09:45] VITALS: BP 113/64; PULSE 85; RESP 18; O2SAT 98; BMI 39.4
--- NOTE | 2019-01-28 09:56 | HMH.PAINSOAP ---
[facility] Pain Management SOAP Note Subjective:: Patient is a pleasant 54-year-old white female who presents today for follow-up after SI joint injection. She is doing extremely well stating that she has no pain today. She does have some twinge of tightness in her muscles at times. Patient currently on gabapentin 400 mg 1 p.o. 3 times daily. Doing well with this. She would like to continue this. We will take over this from her primary care physician. Patient is continuing to exercise she has lost a significant amount of weight after bariatric surgery. ROS General: no recent weight change, no fever, no sleep disturbances Respiratory: no cough, no shortness of air, no recurring pulmonary infections Cardiovascular/Peripheral Vascular: No chest pain, No palpitations, no edema, no shortness of breath. Gastrointestinal: no incontinence, normal bowel movements reported Genitourinary: no incontinence Musculoskeletal: SI joint pain at times Psychiatric: normal mood/ affect Neurological: [denies weakness in extremities], [denies balance issues] Objective:: Physical Exam General: Alert and oriented x3, no acute distress, pleasant and cooperative, [on room air] Lungs: Resps E/U, Symmetrical chest expansion, Eyes: PERRL Musculoskeletal: Flexion and extension of lumbar spine somewhat guarded secondary to pain, deep tendon reflexes normal, strength in upper and lower extremities [5/5], slightly antalgic gait noted Neurological: speech clear, behavioral analyst equal, no gross sensory deficits Assessment:: Sacroiliitis Plan:: We will continue the patient on her gabapentin 400 mg 1 p.o. 3 times daily. I will see the patient back in 2 months reassess her symptoms at that time she is been instructed to call the office if she has any issues prior to her next appointment. Dr. Wallis has reviewed this note and agrees with this plan of care. This note was dictated using voice recognition software and may contain errors or omissions
== END ==
PROVIDERS: PCP Physician Assistant; Visit Provider Clinical Nurse Specialist Family Health
DX: M46.1 Sacroiliitis, not elsewhere classified (principal)
CPT/HCPCS: 99212

== ENCOUNTER → 2019-03-10 14:03 | Outpatient (POV) | payer OTHER, SELFPAY ==
[2019-03-10 14:29] VITALS: BP 117/69; PULSE 84; RESP 18; O2SAT 98; BMI 37.5
--- NOTE | 2019-03-10 15:01 | HMH.PAINSOAP ---
[facility] Pain Management SOAP Note Subjective:: Patient is a pleasant 54-year-old white female who presents today for follow-up. Patient is complaining to the left leg weakness. She has been to podiatry. She is having her left leg give out at times. Patient's continuing her weight loss after her gastric bypass. Patient and I discussed a neurological consultation and she is interested in pursuing this. She rates her pain a 3 out of 10. ROS General: no recent weight change, no fever, no sleep disturbances Respiratory: no cough, no shortness of air, no recurring pulmonary infections Cardiovascular/Peripheral Vascular: No chest pain, No palpitations, no edema, no shortness of breath. Gastrointestinal: no incontinence, normal bowel movements reported Genitourinary: no incontinence Musculoskeletal: SI joint pain at times Psychiatric: normal mood/ affect, Neurological: Leg weakness on the left side at times, [denies balance issues] Objective:: Physical Exam General: Alert and oriented x3, no acute distress, pleasant and cooperative, [on room air] Lungs: Resps E/U, Symmetrical chest expansion, Eyes: PERRL Musculoskeletal: Flexion and extension of lumbar spine somewhat guarded secondary to pain, deep tendon reflexes normal, strength in upper and lower extremities [5/5], antalgic gait noted Neurological: speech clear, copper miner blasting equal, no gross sensory deficits Assessment:: Sacroiliitis, left leg weakness Plan:: We will send the patient to Dr. Flores in [place] for neurological consultation. She is been instructed to call our office if she has any issues prior to her next appointment. Dr. Wallis has reviewed this note and agrees with this plan of care. This note was dictated using voice recognition software and may contain errors or omissions
== END ==
PROVIDERS: PCP Physician Assistant; Visit Provider Clinical Nurse Specialist Family Health
DX: M46.1 Sacroiliitis, not elsewhere classified (principal); R53.1 Weakness
CPT/HCPCS: 99212

== ENCOUNTER → 2019-04-21 11:38 | Outpatient (POV) | payer OTHER, SELFPAY ==
--- NOTE | 2019-04-21 12:13 | HMH.PAINSOAP ---
[facility] Pain Management SOAP Note Subjective:: Patient is a pleasant 54-year-old white female who presents today for follow-up. Patient is having some left leg weakness and pain. She is been to podiatry and neurology. Patient and I discussed a potential transforaminal injection she would like to try this prior to getting a new MRI. If it is not beneficial for her we will order a new MRI. Patient is continuing her weight loss from her gastric bypass. She is lost 85 pounds. She rates her pain a 5 out of 10 today. ROS General: no recent weight change, no fever, no sleep disturbances Respiratory: no cough, no shortness of air, no recurring pulmonary infections Cardiovascular/Peripheral Vascular: No chest pain, No palpitations, no edema, no shortness of breath. Gastrointestinal: no incontinence, normal bowel movements reported Genitourinary: no incontinence Musculoskeletal: Left leg pain Psychiatric: normal mood/ affect Neurological: [denies weakness in extremities], [denies balance issues] Objective:: Physical Exam General: Alert and oriented x3, no acute distress, pleasant and cooperative, [on room air] Lungs: Resps E/U, Symmetrical chest expansion, Eyes: PERRL Musculoskeletal: Flexion and extension of lumbar spine somewhat guarded secondary to pain, deep tendon reflexes normal, strength in upper and lower extremities [5/5], [abnormal gait noted] straight leg raise test on the left side at 30 degrees. Neurological: speech clear, ironer equal, no gross sensory deficits Assessment:: Degenerative disc disease lumbar spine with lumbar radiculopathy left leg weakness Plan:: We will schedule an L4-L5 left transforaminal epidural steroid injection for the patient to see if this is beneficial if it is not we will get some updated imaging. She is not on any anticoagulation therapy. She is been cleared by her gastric surgeon for epidural injections. I will follow-up with the patient after injection reassess her symptom at that time she is instructed to call the office if she has any issues prior to her next appointment. Dr. Wallis has reviewed this note and agrees with this plan of care. This note was dictated using voice recognition software and may contain errors or omissions Pain Management Hx Components *Have you ever received a pneumonia vaccine?: No *Have you received a flu vaccine this season?: No - *Social History *Occupational Status:: other *Travel in the last 8 weeks: None
[2019-04-21 12:32] VITALS: BP 118/59; PULSE 68; RESP 18; O2SAT 98; BMI 36.8
== END ==
PROVIDERS: PCP Physician Assistant; Visit Provider Clinical Nurse Specialist Family Health
DX: M51.16 Intervertebral disc disorders with radiculopathy, lumbar region (principal); M62.81 Muscle weakness (generalized)
CPT/HCPCS: 99212

== ENCOUNTER → 2019-05-24 09:19 | Outpatient (CLI) | payer OTHER, SELFPAY ==
[2019-05-24 10:24] LABS: Basophils % 0.6 % (0.1-2.0); Eosinophils # 0.3 K/mm3 (0.0-0.4); Eosinophils % 4.4 % (0.1-12.0); Hematocrit 45.4 % (37.0-47.0); Hemoglobin 14.9 g/dL (12.2-16.2); Lymphocytes # 2.2 K/mm3 (0.7-4.5); Mean Corpuscular HGB Conc 32.8 g/dL (31.8-35.4); Mean Corpuscular Volume 91.5 fl (81-99); Mean Platelet Volume 7.7 fl (7.4-10.4); Monocytes # 0.4 K/mm3 (0.1-1.0); Monocytes % 5.3 % (1.7-9.3); Neutrophils # 3.8 K/mm3 (1.8-7.8); Neutrophils % 56.8 % (37.0-80.0); Platelet Count 321 K/mm3 (142-424); Red Blood Count 4.96 M/mm3 (4.20-5.40); Red Cell Distribution Width 13.1 % (11.5-17.5); White Blood Count 6.6 K/mm3 (4.8-10.8)
[2019-05-24 11:35] LABS: Hemoglobin A1C 5.6 % (0.0-7.0)
[2019-05-24 12:27] LABS: Alanine Aminotransferase 15 U/L (12-78); Albumin Level 3.6 gm/dL (3.4-5.0); Albumin/Globulin Ratio 1.2 (1.1-1.8); Alkaline Phosphatase 150 U/L (46-116); Anion Gap 14.2 mEq/L (5-15); Aspartate Amino Transferase 14 U/L (15-37); Bilirubin,Total 0.5 mg/dL (0.2-1.0); Blood Urea Nitrogen 11 mg/dL (7-18); Calcium 9.3 mg/dL (8.5-10.1); Carbon Dioxide 28 mmol/L (21.0-32.0); Chloride 103 mmol/L (98-107); Chol/HDL Ratio 3.6 (1-3.5); Cholesterol 207 mg/dL (140-200); Creatinine,Serum 0.71 mg/dL (0.55-1.02); Estimated Glomerular Filt Rate 86 ml/min (>60); Ferritin 259 ng/mL (8-388); GFR (African American) 104 ML/MIN (>60); Glucose 97 mg/dL (74-106); HDL Cholesterol 58 mg/dL (29-89); Iron 85 ug/dl (28-170); LDL Cholesterol 125 mg/dL (0-130); Magnesium 1.8 mg/dL (1.4-2.2); Phosphorous 4.2 mg/dL (2.4-4.9); Potassium 4.2 mmoL/L (3.5-5.1); Sodium 141 mmol/L (136-145); Thyroid Stimulating Hormone 0.01 uIU/ml (0.358-3.740); Total Protein,Serum 6.6 gm/dL (6.4-8.2); Triglycerides 118 mg/dL (30-200); VLDL Cholesterol 24 mg/dL (0-40)
[2019-05-26 09:55] LABS: Vitamin D 25 Hydroxy 34.7 ng/mL (30.0-100.0)
[2019-05-26 13:10] LABS: Folate 15.2 ng/mL (>3.0)
[2019-05-27 10:31] LABS: Prealbumin 21 mg/dL (10-36)
[2019-05-28 06:08] LABS: Parathyroid Hormone Intact 36 pg/mL (15-65)
[2019-05-28 09:12] LABS: Methylmalonic Acid 174 nmol/L (0-378)
[2019-05-29 07:08] LABS: Vitamin E Alpha Tocopherol 14.4 mg/L (7.0-25.1)
[2019-05-29 07:09] LABS: Vitamin A 43.4 ug/dL (20.1-62.0); Vitamin E Gamma Tocopherol 0.9 mg/L (0.5-5.5)
[2019-05-29 07:19] LABS: Vitamin B1 177.2 nmol/L (66.5-200.0)
== END ==
PROVIDERS: Visit Provider Physician Assistant
DX: Z98.84 Bariatric surgery status (principal); I10 Essential (primary) hypertension; E55.9 Vitamin D deficiency, unspecified; E78.5 Hyperlipidemia, unspecified
CPT/HCPCS: 36415; 80053; 80061; 82131; 82652; 82728; 82746; 83036; 83540; 83735; 83970; 84100; 84134; 84425; 84443; 84446; 84590; 85025

== ENCOUNTER → 2019-05-27 10:06 | Outpatient (POV) | payer OTHER, SELFPAY ==
[2019-05-27 10:30] VITALS: BP 131/67; PULSE 69; RESP 18; O2SAT 98; BMI 38.6
--- NOTE | 2019-05-27 12:17 | HMH.PAINSOAP ---
[facility] Pain Management SOAP Note Subjective:: She is a very pleasant 54-year-old white female who presents today for follow-up. Patient is having worsening left leg weakness and pain. She is been to podiatry and neurology. She is recently completed over 6 weeks of physical therapy with no relief. Patient is interested in some injection therapy since it is been beneficial for her in the past. Last time she got an injection she got 80% relief for several months. Patient is continuing a home stretching program. She is on anti-inflammatories. She is continuing to lose weight secondary to gastric bypass. She rates her pain today a 7 out of 10 She is not on any anticoagulation therapy. She has no active infections. ROS General: no recent weight change, no fever, no sleep disturbances Respiratory: no cough, no shortness of air, no recurring pulmonary infections Cardiovascular/Peripheral Vascular: No chest pain, No palpitations, no edema, no shortness of breath. Gastrointestinal: no incontinence, normal bowel movements reported Genitourinary: no incontinence Musculoskeletal: Back pain, left leg pain Psychiatric: normal mood/ affect Neurological: Weakness left lower extremity, [denies balance issues] Objective:: Physical Exam General: Alert and oriented x3, no acute distress, pleasant and cooperative, [on room air] Lungs: Resps E/U, Symmetrical chest expansion, Eyes: PERRL Musculoskeletal: Flexion and extension of lumbar spine somewhat guarded secondary to pain, deep tendon reflexes normal, strength in upper and lower extremities [5/5], [abnormal gait noted] straight leg raise test on the left side at 30 degrees Neurological: speech clear, fireproof door maker equal, no gross sensory deficits Assessment:: Degenerative disc disease lumbar spine with lumbar radiculopathy Plan:: We will schedule an L4-L5 lumbar transforaminal epidural steroid injection for the patient is not on any anticoagulation therapy. She is failed over 6 months of conservative therapy. She said this pain for over 6 months. It is worsening now involving the weakness of her left leg. We will follow-up with her after injection reassess her symptoms at that time. Dr. Wallis has reviewed this note and agrees with this plan of care. This note was dictated using voice recognition software and may contain errors or omissions Pain Management Hx Components *Have you ever received a pneumonia vaccine?: Yes *Have you received a flu vaccine this season?: Yes - *Social History *Occupational Status:: other *Travel in the last 8 weeks: None
--- NOTE | 2019-05-27 12:24 | P.CONS_ITS ---
[facility] Pain Management SOAP Note Subjective:: She is a very pleasant 54-year-old white female who presents today for follow- up. Patient is having worsening left leg weakness and pain. She is been to podiatry and neurology. She is recently completed over 6 weeks of physical therapy with no relief. Patient is interested in some injection therapy since it is been beneficial for her in the past. Last time she got an injection she got 80% relief for several months. Patient is continuing a home stretching program. She is on anti-inflammatories. She is continuing to lose weight secondary to gastric bypass. She rates her pain today a 7 out of 10 She is not on any anticoagulation therapy. She has no active infections. ROS General: no recent weight change, no fever, no sleep disturbances Respiratory: no cough, no shortness of air, no recurring pulmonary infections Cardiovascular/Peripheral Vascular: No chest pain, No palpitations, no edema, no shortness of breath. Gastrointestinal: no incontinence, normal bowel movements reported Genitourinary: no incontinence Musculoskeletal: Back pain, left leg pain Psychiatric: normal mood/ affect Neurological: Weakness left lower extremity, [denies balance issues] Objective:: Physical Exam General: Alert and oriented x3, no acute distress, pleasant and cooperative, [on room air] Lungs: Resps E/U, Symmetrical chest expansion, Eyes: PERRL Musculoskeletal: Flexion and extension of lumbar spine somewhat guarded secondary to pain, deep tendon reflexes normal, strength in upper and lower extremities [5/5], [abnormal gait noted] straight leg raise test on the left side at 30 degrees Neurological: speech clear, contour band saw operator vertical equal, no gross sensory deficits Assessment:: Degenerative disc disease lumbar spine with lumbar radiculopathy Plan:: We will schedule an L4-L5 lumbar transforaminal epidural steroid injection for the patient is not on any anticoagulation therapy. She is failed over 6 months of conservative therapy. She said this pain for over 6 months. It is worsening now involving the weakness of her left leg. We will follow-up with her after injection reassess her symptoms at that time. Dr. Wallis has reviewed this note and agrees with this plan of care. This note was dictated using voice recognition software and may contain errors or omissions Pain Management Hx Components *Have you ever received a pneumonia vaccine?: Yes *Have you received a flu vaccine this season?: Yes - *Social History *Occupational Status:: other *Travel in the last 8 weeks: None
== END ==
PROVIDERS: PCP Physician Assistant; Visit Provider Clinical Nurse Specialist Family Health
DX: M51.16 Intervertebral disc disorders with radiculopathy, lumbar region (principal)
CPT/HCPCS: 99212

== ENCOUNTER → 2019-08-26 11:31 | Outpatient (POV) | payer OTHER, SELFPAY ==
[2019-08-26 11:48] VITALS: BP 146/80; PULSE 69; RESP 18; O2SAT 99; BMI 37.2
--- NOTE | 2019-08-26 12:36 | HMH.PAINSOAP ---
[facility] Pain Management SOAP Note Subjective:: Patient is a pleasant 54-year-old white female who presents today for follow-up after her left transforaminal L4-L5 epidural steroid injection. She did extremely well rating her pain today 2 out of 10 stating it is been the best injection she is ever had and the most effective. Her pain is slowly beginning to return she would like to repeat this she is had over 85% relief of her symptomology. She is continuing her home stretching program and not on any anticoagulation therapy ROS General: no recent weight change, no fever, no sleep disturbances Respiratory: no cough, no shortness of air, no recurring pulmonary infections Cardiovascular/Peripheral Vascular: No chest pain, No palpitations, no edema, no shortness of breath. Gastrointestinal: no new onset incontinence, normal bowel movements reported Genitourinary: no new onset incontinence Musculoskeletal: Back pain, left leg pain Psychiatric: normal mood/ affect, [denies depression], [denies anxiety] Neurological: [denies new onset weakness in extremities], [denies new onset balance issues] Objective:: Physical Exam General: Alert and oriented x3, no acute distress, pleasant and cooperative, [on room air] Lungs: Resps E/U, Symmetrical chest expansion, Eyes: PERRL Musculoskeletal: Flexion and extension of lumbar spine somewhat guarded secondary to pain, deep tendon reflexes normal, strength in upper and lower extremities [5/5], [abnormal gait noted] Neurological: speech clear, pie icer machine equal, no gross sensory deficits Assessment:: Degenerative disc disease lumbar spine with lumbar radiculopathy Plan:: We will schedule the patient for L4-L5 left transforaminal epidural steroid injection. Given the efficacy of the last one I believe it would be beneficial. I will follow-up with her after this reassess her symptoms she is been instructed to call the office if she has any issues prior to her next appointment. Dr. Wallis has reviewed this note and agrees with this plan of care. This note was dictated using voice recognition software and may contain errors or omissions [facility] History I have reviewed the patient's past medical history: Yes Medical History: Reports:: Hypertension, Migraine Denies:: Cancer, Diabetes Mellitus Type 1, Diabetes Mellitus Type 2, MRSA, Seizures *Have you ever received a pneumonia vaccine?: Yes *Have you received a flu vaccine this season?: Yes Other Medical History: Reports: Hypothyroidism. Denies: Blood Transfusion Reaction Other Surgeries: Yes: Colonoscopy, Hysterectomy-Partial Amputation: No Fractures: No - *Social History Smoking Status: Former smoker Alcohol Intake: never Alcohol Intake Frequency:: other Substance Use Type: denies use *Occupational Status:: other Housing: house Household Members: spouse *Travel in the last 8 weeks: None Family Hx:: Coronary Artery Disease, Hypertension, Diabetes
--- NOTE | 2019-08-26 12:39 | P.CONS_ITS ---
[facility] Pain Management SOAP Note Subjective:: Patient is a pleasant 54-year-old white female who presents today for follow-up after her left transforaminal L4-L5 epidural steroid injection. She did extremely well rating her pain today 2 out of 10 stating it is been the best injection she is ever had and the most effective. Her pain is slowly beginning to return she would like to repeat this she is had over 85% relief of her symptomology. She is continuing her home stretching program and not on any anticoagulation therapy ROS General: no recent weight change, no fever, no sleep disturbances Respiratory: no cough, no shortness of air, no recurring pulmonary infections Cardiovascular/Peripheral Vascular: No chest pain, No palpitations, no edema, no shortness of breath. Gastrointestinal: no new onset incontinence, normal bowel movements reported Genitourinary: no new onset incontinence Musculoskeletal: Back pain, left leg pain Psychiatric: normal mood/ affect, [denies depression], [denies anxiety] Neurological: [denies new onset weakness in extremities], [denies new onset balance issues] Objective:: Physical Exam General: Alert and oriented x3, no acute distress, pleasant and cooperative, [on room air] Lungs: Resps E/U, Symmetrical chest expansion, Eyes: PERRL Musculoskeletal: Flexion and extension of lumbar spine somewhat guarded secondary to pain, deep tendon reflexes normal, strength in upper and lower extremities [5/5], [abnormal gait noted] Neurological: speech clear, data base design analyst equal, no gross sensory deficits Assessment:: Degenerative disc disease lumbar spine with lumbar radiculopathy Plan:: We will schedule the patient for L4-L5 left transforaminal epidural steroid injection. Given the efficacy of the last one I believe it would be beneficial. I will follow-up with her after this reassess her symptoms she is been instructed to call the office if she has any issues prior to her next appointment. Dr. Wallis has reviewed this note and agrees with this plan of care. This note was dictated using voice recognition software and may contain errors or omissions [facility] History I have reviewed the patient's past medical history: Yes Medical History: Reports:: Hypertension, Migraine Denies:: Cancer, Diabetes Mellitus Type 1, Diabetes Mellitus Type 2, MRSA, Seizures *Have you ever received a pneumonia vaccine?: Yes *Have you received a flu vaccine this season?: Yes Other Medical History: Reports: Hypothyroidism. Denies: Blood Transfusion Reaction Other Surgeries: Yes: Colonoscopy, Hysterectomy-Partial Amputation: No Fractures: No - *Social History Smoking Status: Former smoker Alcohol Intake: never Alcohol Intake Frequency:: other Substance Use Type: denies use *Occupational Status:: other Housing: house Household Members: spouse *Travel in the last 8 weeks: None Family Hx:: Coronary Artery Disease, Hypertension, Diabetes
== END ==
PROVIDERS: PCP Physician Assistant; Visit Provider Clinical Nurse Specialist Family Health
DX: M54.16 Radiculopathy, lumbar region (principal)
CPT/HCPCS: 99212

== ENCOUNTER → 2019-10-02 17:26 | Outpatient (CLI) | payer MEDICAID, SELFPAY ==
[2019-10-02 18:04] LABS: Basophils % 0.3 % (0.1-2.0); Eosinophils # 0.2 K/mm3 (0.0-0.4); Eosinophils % 2.8 % (0.1-12.0); Hematocrit 46.2 % (37.0-47.0); Hemoglobin 14.5 g/dL (12.2-16.2); Lymphocytes # 2.5 K/mm3 (0.7-4.5); Lymphocytes % 31.2 % (10-50); Mean Corpuscular HGB Conc 31.4 g/dL (31.8-35.4); Mean Corpuscular Hemoglobin 29.9 pg (27.0-31.2); Mean Corpuscular Volume 95.2 fl (81-99); Mean Platelet Volume 8.7 fl (7.4-10.4); Monocytes # 0.4 K/mm3 (0.1-1.0); Monocytes % 5.2 % (1.7-9.3); Neutrophils # 4.8 K/mm3 (1.8-7.8); Neutrophils % 60.5 % (37.0-80.0); Platelet Count 325 K/mm3 (142-424); Red Blood Count 4.85 M/mm3 (4.20-5.40); Red Cell Distribution Width 12.9 % (11.5-17.5); White Blood Count 7.9 K/mm3 (4.8-10.8)
[2019-10-02 19:04] LABS: Alanine Aminotransferase 14 U/L (12-78); Albumin Level 3.2 gm/dL (3.4-5.0); Albumin/Globulin Ratio 1.1 (1.1-1.8); Alkaline Phosphatase 151 U/L (46-116); Aspartate Amino Transferase 13 U/L (15-37); Bilirubin,Total 0.1 mg/dL (0.2-1.0); Blood Urea Nitrogen 12 mg/dL (7-18); Calcium 8.8 mg/dL (8.5-10.1); Carbon Dioxide 30 mmol/L (21.0-32.0); Chloride 102 mmol/L (98-107); Chol/HDL Ratio 2.2 (1-3.5); Cholesterol 160 mg/dL (140-200); Estimated Glomerular Filt Rate 88 ml/min (>60); GFR (African American) 106 ML/MIN (>60); Globulin 2.9 gm/dl (1.3-3.2); Glucose 91 mg/dL (74-106); HDL Cholesterol 73 mg/dL (29-89); LDL Cholesterol 78 mg/dL (0-130); Sodium 139 mmol/L (136-145); T4 (Thyroxine) 12.7 ug/dl (4.7-13.3); Total Protein,Serum 6.1 gm/dL (6.4-8.2); Triglycerides 45 mg/dL (30-200); VLDL Cholesterol 9 mg/dL (0-40)
[2019-10-04 11:04] LABS: Vitamin D 25 Hydroxy 35.2 ng/mL (30.0-100.0)
== END ==
PROVIDERS: Visit Provider Physician Assistant
DX: I10 Essential (primary) hypertension (principal); E55.9 Vitamin D deficiency, unspecified; E03.9 Hypothyroidism, unspecified; E78.5 Hyperlipidemia, unspecified
CPT/HCPCS: 80053; 80061; 82652; 84436; 84443; 85025

== ENCOUNTER → 2019-10-08 10:55 | Outpatient (CLI) | payer MEDICAID, SELFPAY ==
[2019-10-08 12:27] LABS: Thyroid Stimulating Hormone 0.01 uIU/ml (0.358-3.740)
== END ==
PROVIDERS: Visit Provider Physician Assistant
DX: E03.9 Hypothyroidism, unspecified (principal)
CPT/HCPCS: 36415; 84443

== ENCOUNTER → 2019-10-20 08:29 | Outpatient (POV) | payer MEDICAID, SELFPAY ==
[2019-10-20 08:31] VITALS: BP 113/75; PULSE 67; RESP 18; O2SAT 98; BMI 38.2
--- NOTE | 2019-10-20 08:48 | P.CONS_ITS ---
[facility] Pain Management SOAP Note Subjective:: Patient is a pleasant 54-year-old white female who presents today for follow-up after epidural steroid injection. Patient is doing well rating her pain a 3 out of 10 she got over 80% relief of her symptoms. She would like to follow-up in a several months for reassessment. ROS General: no recent weight change, no fever, no sleep disturbances Respiratory: no cough, no shortness of air, no recurring pulmonary infections Cardiovascular/Peripheral Vascular: No chest pain, No palpitations, no edema, no shortness of breath. Gastrointestinal: no new onset incontinence, normal bowel movements reported Genitourinary: no new onset incontinence Musculoskeletal: Back pain, leg pain Psychiatric: normal mood/ affect Neurological: [denies new onset weakness in extremities], [denies new onset balance issues] Objective:: Physical Exam General: Alert and oriented x3, no acute distress, pleasant and cooperative, [on room air] Lungs: Resps E/U, Symmetrical chest expansion, Eyes: PERRL Musculoskeletal: Flexion and extension of lumbar spine somewhat guarded secon casimiro to pain, deep tendon reflexes normal, strength in upper and lower extremities [5/5], normal gait noted Neurological: speech clear, sand conditioner machine equal, no gross sensory deficits Assessment:: Degenerative disc disease lumbar spine with lumbar radiculopathy Plan:: We will see the patient back in 2 months reassess her symptoms at that time she is been instructed to call the office if she has any issues prior to her next appointment. Dr. Wallis has reviewed this note and agrees with this plan of care. This note was dictated using voice recognition software and may contain errors or omissions [facility] History I have reviewed the patient's past medical history: Yes Medical History: Reports:: Hypertension, Migraine Denies:: Cancer, Diabetes Mellitus Type 1, Diabetes Mellitus Type 2, MRSA, Seizures *Have you ever received a pneumonia vaccine?: Yes *Have you received a flu vaccine this season?: Yes Other Medical History: Reports: Hypothyroidism. Denies: Blood Transfusion Reaction Other Surgeries: Yes: Colonoscopy, Hysterectomy-Partial Amputation: No Fractures: No - *Social History Smoking Status: Former smoker Alcohol Intake: never Alcohol Intake Frequency:: other Substance Use Type: denies use *Occupational Status:: other Housing: house Household Members: spouse *Travel in the last 8 weeks: None Family Hx:: Coronary Artery Disease, Hypertension, Diabetes
== END ==
PROVIDERS: PCP Physician Assistant; Visit Provider Clinical Nurse Specialist Family Health
DX: M51.16 Intervertebral disc disorders with radiculopathy, lumbar region (principal)
CPT/HCPCS: 99212

== ENCOUNTER → 2019-11-04 10:14 | Outpatient (CLI) | payer MEDICAID, SELFPAY ==
--- NOTE | 2019-11-04 10:15 | MM_ITS ---
PROCEDURE: MM DIG SCREENING MAMM BI W/CAD CLINICAL INDICATION: Screening COMPARISON: DIG MAMMO BILAT SCREENING from 04/10/2011 [facility] DIG MAMM-SCREEN HANG from 08/22/2016 TECHNIQUE: Standard CC and MLO images and 3D Tomosynthesis was obtained. R2 CAD reviewed. FINDINGS: The breasts are dense. There are no new findings to suggest malignancy. Benign appearing nodules consistent with lymph nodes project over both pectoral muscles and a 4 millimeter benign appearing nodule in the upper outer quadrant of the left breast is noted stable and likely a benign intramammary lymph node. IMPRESSION: BI-RAD Category: 2 benign findings FOLLOW-UP: 1 year (A letter has been sent to the patient regarding results of the study.) Dictated by: Abhi Ramos 11/04/2019 18:19 Electronically signed by Abhi Ramos in [place] 11/04/2019 18:19
== END ==
PROVIDERS: PCP Physician Assistant; Visit Provider Physician Assistant
DX: Z12.31 Encounter for screening mammogram for malignant neoplasm of breast (principal)
CPT/HCPCS: 77063; 77067

== ENCOUNTER → 2019-12-22 12:54 | Outpatient (POV) | payer MEDICAID, SELFPAY ==
--- NOTE | 2019-12-22 13:11 | HMH.VVPMSO ---
[facility] Virtual Visit SOAP Consent for virtual visit:: With the recent concerns about the COVID-19, we are trying to minimize exposure to you by shifting to telehealth appointments whenever possible. It restricts me from seeing you in person, but the trade off is protecting you during this pandemic. Can you see and hear me okay, and do you consent to this option? If not, I would be happy to see if we can reschedule your appointment in the future, when feasible. Has patient consented to this virtual visit?: Yes Subjective:: Patient is a pleasant 54-year-old white female who presents today for follow-up. Patient had an epidural steroid injection and states that it was beneficial however she finds her SI joint injections much more beneficial. Patient gets about 80% relief with her SI joint injections lasting 3 to 4 months. At this time during the pandemic we are not doing as many elective procedures and she understands this. Patient rates her pain today a 4 out of 10. She has lost a significant amount of weight. She is weaning herself off of her gabapentin and trying to stay as active as possible. Patient is interested in pursuing SI joint injections when available. ROS General: no recent weight change, no fever, no sleep disturbances Respiratory: no cough, no shortness of air, no recurring pulmonary infections Cardiovascular/Peripheral Vascular: No chest pain, No palpitations, no edema, no shortness of breath. Gastrointestinal: no new onset incontinence, normal bowel movements reported Genitourinary: no new onset incontinence Musculoskeletal: Back pain, leg pain Psychiatric: normal mood/ affect, Neurological: [denies new onset weakness in extremities], [denies new onset balance issues] Objective:: Physical exam: Constitutional: Healthy appearing, well-developed, alert, in no acute distress Psychiatric: Judgment and insight intact, Alert and oriented x4 Mood and affect: Mood normal, affect appropriate Head and face: Inspection: Normocephalic atraumatic, extraocular movement intact Respiratory: Breathing nonlabored, nondyspneic Cardiovascular: No cyanosis, clubbing, or edema observed Skin: Head and neck: Skin with no lesions or rash observed Gait: Able to walk without assistive device: Able to heel and toe walk Neurologic: Sensation grossly intact per patient Musculoskeletal: Patient has lower back pain around her beltline. She has difficulty with flexion and extension of the lumbar spine. Patient has tenderness when she palpates over her bilateral SI joints. Assessment:: Degenerative disc disease lumbar spine lumbar radiculopathy along with SI joint pain, sacroiliitis Plan:: We will plan to do bilateral SI joint injections for the patient once elective procedures resume. Dr. Wallis has reviewed this note and agrees with this plan of care. This note was dictated using voice recognition software and may contain errors or omissions this encounter was performed as a telemedicine visit via secure 2 way video and audio to minimize risk and transmission of Covid-19. The patient and we understand the limitations of a telemedicine visit including inability to check reflexes, possibly missing subtle findings on physical exam. Alternative options were presented to the patient and the patient elected to proceed with the visit. We specifically discussed risk factors for Covid-19 including age, heart or lung disease, diabetes, immunosuppression and travel. We also discussed that NSAIDs may worsen Covid-19 infection symptoms and that they should not be used to treat Covid-19 symptoms. Patient was also informed that corticosteroids in any form oral or injectable will decrease immune response and may increase risk of Covid-[address] Wallis has reviewed this patient's chart and this note and agrees with plan of care. Patient has been instructed to call the office if they have any issues prior to the next appointment. Time In::
== END ==
PROVIDERS: Visit Provider Clinical Nurse Specialist Family Health
DX: M51.16 Intervertebral disc disorders with radiculopathy, lumbar region (principal); M46.1 Sacroiliitis, not elsewhere classified
CPT/HCPCS: 99211; 99212

== ENCOUNTER 2020-01-02 08:32 | Day surgery (SDC) | payer MEDICAID, SELFPAY ==
[2020-01-02 08:36] VITALS: BP 116/62; PULSE 77; RESP 18; O2SAT 98; BMI 37.5
[2020-01-02 08:56] VITALS: BP 145/89; PULSE 88; RESP 18
[2020-01-02 08:57] VITALS: BP 138/89; PULSE 89; RESP 18; O2SAT 99
--- NOTE | 2020-01-02 08:58 | P.PCN_ITS ---
- Procedure Date: 01/02/20 Time: 08:58 Anesthesiologist:: Valentin Wallis MD Complications:: None Pre-procedure Diagnosis:: Sacroiliitis Post-procedure Diagnosis:: Same Indications for Procedure:: This patient is a pleasant 54-year-old white female who we are treating for bilateral hip pain. She is done well with SI joint injections in the past. She is now having some increasing pain over both hips. She has positive SI joint compression test bilaterally. She has a positive Ellen's test bilaterally. She is positive Teresa test bilaterally. Her pain is affecting her activities of daily living and affecting her functionality. We will do repeat bilateral SI joint injections today to keep her out of the emergency room and also keep her off oral opioids. Procedure Details:: B/L SI joint injection under fluoroscopy Informed consent was obtained and the risks and benefits of the procedure was explained to the patient. The patient was taken to the procedure room and placed prone on the procedure table. The patient was prepped using ChloraPrep. The skin and subcutaneous tissues overlying the SI joints were anesthetized using lidocaine. I placed a 22-gauge needle first in the left SI joint and second in the right SI joint. Needle placement was confirmed with dye. After this we injected 5 mL bupivacaine 0.25% and Depo-Medrol 40 mg into each SI joint. Patient tolerated the procedure well with no complication. Plan and Disposition:: We will follow-up with her in 2 weeks. Will reevaluate her symptoms at that ti me.
[2020-01-02 09:05] VITALS: BP 121/65; PULSE 70; RESP 20; O2SAT 97
== END 2020-01-02 09:07 | disposition home or self-care (01) ==
LOC: SC.PAINP 08:33
PROVIDERS: PCP Physician Assistant; Visit Provider Anesthesiology
DX: M46.1 Sacroiliitis, not elsewhere classified (principal); E66.9 Obesity, unspecified; I10 Essential (primary) hypertension; E78.5 Hyperlipidemia, unspecified; Z68.37 Body mass index [BMI] 37.0-37.9, adult; Z79.899 Other long term (current) drug therapy
CPT/HCPCS: 27096; G0260; J1030

== ENCOUNTER → 2020-01-15 13:10 | Outpatient (CLI) | payer MEDICAID, SELFPAY ==
[2020-01-15 14:11] LABS: Alanine Aminotransferase 9 U/L (12-78); Albumin Level 3.9 g/dl (3.5-5.0); Albumin/Globulin Ratio 1.6 (1.1-1.8); Alkaline Phosphatase 121 U/L (38-126); Anion Gap 8.4 mEq/L (5-15); Aspartate Amino Transferase 19 U/L (14-36); Bilirubin,Total 0.3 mg/dl (0.2-1.3); Blood Urea Nitrogen 12 mg/dl (7-17); Calcium 9.3 mg/dl (8.4-10.2); Carbon Dioxide 27 mmol/L (22.0-30.0); Chloride 102 mmol/L (98-107); Cholesterol 156 mg/dl (140-200); Estimated Glomerular Filt Rate 75 ml/min (>60); GFR (African American) 91 ML/MIN (>60); Globulin 2.4 g/dL (1.3-3.2); Glucose 88 mg/dl (74-100); HDL Cholesterol 78 mg/dl (40-60); Potassium 4.4 mmoL/L (3.5-5.1); Sodium 133 mmol/L (136-145); Total Protein,Serum 6.3 g/dl (6.3-8.2); Triglycerides 115 mg/dl (30-150); VLDL Cholesterol 23 mg/dL (0-40)
[2020-01-15 14:16] LABS: Basophils % 0.5 % (0.1-2.0); Eosinophils # 0.2 K/mm3 (0.0-0.4); Eosinophils % 2.4 % (0.1-12.0); Hematocrit 44.8 % (37.0-47.0); Hemoglobin 14.9 g/dL (12.2-16.2); Lymphocytes # 2.6 K/mm3 (0.7-4.5); Lymphocytes % 31.3 % (10-50); Mean Corpuscular HGB Conc 33.2 g/dL (31.8-35.4); Mean Corpuscular Hemoglobin 30.1 pg (27.0-31.2); Mean Corpuscular Volume 90.7 fl (81-99); Mean Platelet Volume 7.5 fl (7.4-10.4); Monocytes # 0.6 K/mm3 (0.1-1.0); Neutrophils # 4.8 K/mm3 (1.8-7.8); Neutrophils % 58.8 % (37.0-80.0); Platelet Count 340 K/mm3 (142-424); Red Blood Count 4.94 M/mm3 (4.20-5.40); Red Cell Distribution Width 12.9 % (11.5-17.5); White Blood Count 8.2 K/mm3 (4.8-10.8)
[2020-01-15 14:22] LABS: Direct LDL Cholesterol 81.82 mg/dL (100-129)
[2020-01-15 14:28] LABS: T4 (Thyroxine) 14.8 ug/dl (5.53-11.0)
[2020-01-15 14:42] LABS: Thyroid Stimulating Hormone < 0.02 uIU/mL (0.465-4.68)
[2020-01-16 09:25] LABS: Vitamin D 25 Hydroxy 34.3 ng/mL (30.0-100.0)
== END ==
PROVIDERS: Visit Provider Physician Assistant
DX: E03.9 Hypothyroidism, unspecified (principal)
CPT/HCPCS: 36415; 80053; 80061; 82652; 84436; 84443; 85025

== ENCOUNTER → 2020-01-19 13:50 | Outpatient (POV) | payer MEDICAID, SELFPAY ==
[2020-01-19 14:07] VITALS: BP 115/68; PULSE 78; RESP 18; TEMP 36.8; O2SAT 98; BMI 38.9
--- NOTE | 2020-01-19 14:20 | P.CONS_ITS ---
[facility] Pain Management SOAP Note Subjective:: Patient is a pleasant 54-year-old white female who presents today for follow-up after bilateral SI joint injections. Patient has 100% relief on her left side. Patient got some relief on her right side however she is still having quite a bit of pain. She is got a positive Ellen's test SI joint compression test and Teresa test on that side. Patient would like to repeat the SI joint injection on the right side only. Patient is gotten 80% relief up to 5 months with these injections in the past. She is continuing as stretching program and is currently unable to take anti-inflammatories due to gastric bypass. ROS General: no recent weight change, no fever, no sleep disturbances Respiratory: no cough, no shortness of air, no recurring pulmonary infections Cardiovascular/Peripheral Vascular: No chest pain, No palpitations, no edema, no shortness of breath. Gastrointestinal: no new onset incontinence, normal bowel movements reported Genitourinary: no new onset incontinence Musculoskeletal: Right hip pain right SI joint pain Psychiatric: normal mood/ affect Neurological: [denies new onset weakness in extremities], [denies new onset balance issues] Objective:: Physical Exam General: Alert and oriented x3, no acute distress, pleasant and cooperative, [on room air] Lungs: Resps E/U, Symmetrical chest expansion, Eyes: PERRL Musculoskeletal: Flexion and extension of lumbar spine somewhat guarded secondary to pain, deep tendon reflexes normal, strength in upper and lower extremities [5/5], slightly antalgic gait noted Neurological: speech clear, pocket flap creasing machine operator equal, no gross sensory deficits Assessment:: Sacroiliitis Plan:: We will plan a right SI joint injection for the patient. I will follow-up with her after this reassess her symptoms at that time she has been instructed to call the office if she has any issues prior to her next appointment. Dr. Wallis has reviewed this note and agrees with this plan of care. This note was dictated using voice recognition software and may contain errors or omissions [facility] History I have reviewed the patient's past medical history: Yes Medical History: Reports:: Hypertension, Migraine Denies:: Cancer, Diabetes Mellitus Type 1, Diabetes Mellitus Type 2, MRSA, Seizures *Have you ever received a pneumonia vaccine?: Yes *Have you received a flu vaccine this season?: Yes Other Medical History: Reports: Hypothyroidism. Denies: Blood Transfusion Reaction Other Surgeries: Yes: Colonoscopy, Hysterectomy-Partial Amputation: No Fractures: No - *Social History Smoking Status: Former smoker Alcohol Intake: never Alcohol Intake Frequency:: other Substance Use Type: denies use *Occupational Status:: other Housing: house Household Members: spouse *Travel in the last 8 weeks: None Family Hx:: Coronary Artery Disease, Hypertension, Diabetes
== END ==
PROVIDERS: PCP Physician Assistant; Visit Provider Clinical Nurse Specialist Family Health
DX: M46.1 Sacroiliitis, not elsewhere classified (principal)
CPT/HCPCS: 99212

== ENCOUNTER 2020-02-06 10:22 | Day surgery (SDC) | payer MEDICAID, SELFPAY ==
[2020-02-06 11:08] VITALS: BP 132/64; PULSE 71; RESP 18; O2SAT 97; BMI 38.4
[2020-02-06 11:31] VITALS: BP 145/85; PULSE 85; RESP 18
[2020-02-06 11:32] VITALS: BP 140/87; PULSE 85; RESP 18; O2SAT 98
--- NOTE | 2020-02-06 11:35 | P.PCN_ITS ---
- Procedure Date: 02/06/20 Time: 11:35 Anesthesiologist:: Valentin Wallis MD Complications:: None Pre-procedure Diagnosis:: Sacroiliitis Post-procedure Diagnosis:: Same Indications for Procedure:: This patient is a pleasant 54-year-old white female who we are treating for sacroiliitis. She is doing well with her left side after SI joint injections. She still has some residual pain on the right side. We will do a right SI joint injection under fluoroscopy today to help her with her pain symptoms. She does have positive Ellen's test on the right side. She has a positive SI joint com pression test on the right side. She has a positive Teresa test on the right side. Procedure Details:: Right SI joint injection under fluoroscopy Informed consent was obtained and the risks and benefits of the procedure was going to the patient. Patient was taken to the procedure room. Patient was placed prone on the procedure table. The right hip was prepped using ChloraPrep. The skin and subcutaneous tissues were anesthetized using lidocaine. I placed a 22-gauge spinal needle into the inferior aspect of the right SI joint. Needle placement was confirmed with dye. After this we injected 5 mL bupivacaine 0.25% and Depo-Medrol 40 mg into the right SI joint. The patient tolerated the procedure well with no complication. Plan and Disposition:: We will follow-up with her in 2 weeks. Will reevaluate symptoms at that time. If she does not get relief of her SI joint pain after these injections she may be a candidate for SI joint stabilization in the future.
[2020-02-06 11:39] VITALS: BP 123/75; PULSE 66; RESP 18; O2SAT 97
== END 2020-02-06 11:40 | disposition home or self-care (01) ==
LOC: SC.PAINP 10:23
PROVIDERS: PCP Physician Assistant; Visit Provider Anesthesiology
DX: M46.1 Sacroiliitis, not elsewhere classified (principal); E66.9 Obesity, unspecified; I10 Essential (primary) hypertension; Z68.38 Body mass index [BMI] 38.0-38.9, adult; J44.9 Chronic obstructive pulmonary disease, unspecified; F41.9 Anxiety disorder, unspecified; F32.9 Major depressive disorder, single episode, unspecified
CPT/HCPCS: 27096; G0260; J1040; Q9966

== ENCOUNTER → 2020-03-01 08:18 | Outpatient (POV) | payer MEDICAID, SELFPAY ==
[2020-03-01 08:51] VITALS: BP 117/72; PULSE 70; RESP 18; TEMP 36.6; O2SAT 98; BMI 38.9
--- NOTE | 2020-03-01 08:52 | HMH.PAINSOAP ---
[facility] Pain Management SOAP Note Subjective:: Ms. Lundberg is a pleasant 55-year-old white female who presents today for follow-up after right SI joint injection. She is 80% symptom-free. She rates her pain a 2 out of 10 overall doing extremely well. Patient is on gabapentin 400 mg 1 p.o. 3 times daily. Patient and I discussed potentially increasing this slightly to help with some of her numbness and tingling in her bilateral lower extremities. She denies side effects from medication. [facility] #[id number] reviewed and appropriate. ROS General: no recent weight change, no fever, no sleep disturbances Respiratory: no cough, no shortness of air, no recurring pulmonary infections Cardiovascular/Peripheral Vascular: No chest pain, No palpitations, no edema, no shortness of breath. Gastrointestinal: no new onset incontinence, normal bowel movements reported Genitourinary: no new onset incontinence Musculoskeletal: Back pain, SI joint pain Psychiatric: normal mood/ affect Neurological: [denies new onset weakness in extremities], [denies new onset balance issues] Objective:: Physical Exam General: Alert and oriented x3, no acute distress, pleasant and cooperative, [on room air] Lungs: Resps E/U, Symmetrical chest expansion, Eyes: PERRL Musculoskeletal: Flexion and extension of lumbar spine somewhat guarded secondary to pain, deep tendon reflexes normal, strength in upper and lower extremities [5/5], antalgic gait noted Neurological: speech clear, veneer supervisor equal, no gross sensory deficits Assessment:: Sacroiliitis Plan:: We will increase the patient's gabapentin 400 mg 1 p.o. 4 times daily. We will see the patient back in 3 months reassess her symptoms at that time she has been instructed to call the office if she has any issues prior to her next appointment. Dr. Wallis has reviewed this note and agrees with this plan of care. This note was dictated using voice recognition software and may contain errors or omissions [facility] History I have reviewed the patient's past medical history: Yes Medical History: Reports:: Hypertension, Migraine Denies:: Cancer, Diabetes Mellitus Type 1, Diabetes Mellitus Type 2, MRSA, Seizures *Have you ever received a pneumonia vaccine?: No *Have you received a flu vaccine this season?: No Other Medical History: Reports: Hypothyroidism. Denies: Blood Transfusion Reaction Other Surgeries: Yes: Colonoscopy, Hysterectomy-Partial Amputation: No Fractures: No - *Social History Smoking Status: Former smoker Alcohol Intake: never Alcohol Intake Frequency:: other Substance Use Type: denies use *Occupational Status:: employed Housing: house Household Members: spouse *Travel in the last 8 weeks: None Family Hx:: Coronary Artery Disease, Hypertension, Diabetes
== END ==
PROVIDERS: PCP Physician Assistant; Visit Provider Clinical Nurse Specialist Family Health
DX: M46.1 Sacroiliitis, not elsewhere classified (principal)
CPT/HCPCS: 99212

== ENCOUNTER → 2020-03-04 09:37 | Outpatient (CLI) | payer MEDICAID, SELFPAY ==
[2020-03-04 12:00] LABS: Coronavirus 19 IgG Antibody Negative (Negative); Coronavirus 19 IgM Antibody Negative (Negative)
== END ==
PROVIDERS: Visit Provider Surgery
DX: Z01.818 Encounter for other preprocedural examination (principal); D17.21 Benign lipomatous neoplasm of skin and subcutaneous tissue of right arm
CPT/HCPCS: 36415; 86328

== ENCOUNTER 2020-03-05 07:20 | Day surgery (SDC) | payer MEDICAID, SELFPAY ==
--- NOTE | 2020-03-03 09:42 | SUR.PREOP ---
03/03/2020 @ 0945--PHONE CALL MADE TO PATIENT. PATIENT UNDERSTANDS THAT LAB WORK AND COVID TESTING NEEDS TO BE COMPLETED @ 10 ON 03/04/2020. PATIENT UNDERSTANDS IF LAB WORK AND COVID-19 TESTS ARE NOT COMPLETED BY 12PM ON THAT DATE, THE SURGERY SCHEDULED WILL BE CANCELLED AND RESCHEDULED FOR ANOTHER TIME.
[2020-03-04 15:27] VITALS: BMI 36.8
[2020-03-05] VITALS (10 sets, daily range): BP systolic 106–153; BP diastolic 51–94; PULSE 55–70; RESP 16–21; TEMP 36.2–36.6; O2SAT 90–100
--- NOTE | 2020-03-05 09:39 | P.OP_ITS ---
Date of procedure: 03/05/20 Pre-op Diagnosis:: Upper extremity lipomas (1.5 cm and 2 cm) Post-op Diagnosis:: Same Procedure performed:: Excision of right upper extremity lipomas (2 cm and 1.5 cm) Surgeon:: Ptee De Leon MD WASHING MACHINE LOADER AND PULLER:: Eric Cade Anesthesia: LMA Estimated blood loss (mL): 5 Operative findings:: 2 cm anterior/lateral right upper extremity lipoma 1.5 cm posterior/lateral right upper extremity lipoma Operative note:: After informed consent was obtained the patient was taken to the operating room and placed in the supine position. General anesthesia with laryngeal mask airway was achieved. Her right upper extremity was prepped and draped in a sterile fashion. After infiltration of local anesthetic a longitudinal incision was made overlying both palpable lesions. The 2 cm anterior/lateral lipoma was excised with a combination of sharp dissection, electrocautery, and blunt dissection. The 1.5 cm posterior/lateral lesion was excised in the same manner. Electrocautery was utilized to achieve hemostasis. Skin was reapproximated with 4-0 nylon. Dressings were applied and the patient was transferred to recovery in stable condition. Condition: stable Disposition: PACU Specimens:: 2 cm right upper extremity lipoma (anterior) 1.5 cm upper extremity lipoma (posterior) Complications:: No immediate
--- NOTE | 2020-03-05 09:44 | HMH.ANESCL ---
[facility] Anesthesia Checklist - Patient Identification Patient Identification: Arm Band, Verbal (Name & ) - Structural Data Admitted From: Home Planned Operative Procedure/s: ex lipoma Consent for Planned Operative Procedure(s) Verified: Yes Verified Documents: History and Physical - NPO Status Verified Time NPO: 00:00 - Chart Verification Results Verified: CBC, BMP - Additional verifications Patient : No Anesthesia Reactions: No Hx Blood Transfusions: No Blood Transfusion Reaction: No Cephalosporin Allergy: No Previous Colonoscopy: No - Cardiovascular Assessment Heart Sounds: S1 & S2 Pulse Strength: Baseline Pulse Rhythm: Regular Peripheral Edema: No - Airway Assessment Dentition: Edentulous - Neurological Assessment Level of Consciousness: Awake, Alert, Appropriate Hx Seizures: No Numbness or tingling in extremities: No - Anesthesia Plan Anesthesia Risk discussed: Yes Anesthesia Plan: Verified ASA Class: II Anesthesia Type: General [facility] History I have reviewed the patient's past medical history: Yes Medical History: Reports:: Hypertension, Migraine Denies:: Cancer, Diabetes Mellitus Type 1, Diabetes Mellitus Type 2, Internal Pacemaker, MRSA, Seizures *Have you ever received a pneumonia vaccine?: No *Have you received a flu vaccine this season?: No Other Medical History: Reports: Hypothyroidism. Denies: Blood Transfusion Reaction Anesthesia experience/problems:: none Other Surgeries: Yes: Colonoscopy, Hysterectomy-Partial. No: Pacemaker Amputation: No Fractures: No - *Social History Educational Level: Completed GED/General Educational Development Smoking Status: Current some day smoker Tobacco Type: cigarettes # Packs/Day (cigarettes): 1 Alcohol Intake: never Alcohol Intake Frequency:: other Substance Use Type: denies use *Occupational Status:: disabled Housing: house Household Members: spouse *Travel in the last 8 weeks: None Family Hx:: Coronary Artery Disease, Hypertension, Diabetes
--- NOTE | 2020-03-05 09:45 | HMH.ANESI ---
[facility] Anesthesia Record Part I Intake, IV Amount: 450 Estimated blood loss (mL): 10 Urine output (mL): 0 Blood Products used (#): none Blood Pressure: 114/62 SaO2: 93 Pulse Rate: 70 Respiratory Rate: 18 Temperature: 97.6 F Patient is:: Drowsy, Nasal O2, Stable Stable to PACU at:: 09:40
--- NOTE | 2020-03-05 10:27 | P.PN_ITS ---
[facility] Anesthesia Record Part II Discharge Time: 10:10 Destination: Surgical Day Care (OP Surgery) PACU nurse assessment reviewed?: Yes Patient Condition:: Good Anesthesia Complications:: None Swallowing reflex intact?: Yes Cyanosis?: No Blood Pressure: 111/64 Pulse Rate: 56 Temperature: 97.8 F Mental Status: Alert & Oriented Pain level:: 0 Nausea and/or vomitting:: None Intake, IV Amount: 25
--- NOTE | 2020-03-05 10:29 | P.PN_ITS ---
[facility] Anesthesia Record Part II Discharge Time: 10:10 Destination: Surgical Day Care (OP Surgery) PACU nurse assessment reviewed?: Yes Patient Condition:: Good Anesthesia Complications:: None Swallowing reflex intact?: Yes Cyanosis?: No Blood Pressure: 111/64 Pulse Rate: 56 Temperature: 97.8 F Mental Status: Alert & Oriented Pain level:: 0 Nausea and/or vomitting:: None Intake, IV Amount: 25
--- NOTE | 2020-03-05 14:12 | SUR.PHASEI ---
0940: Patient into PACU with oral airway, out at 0945. Dressing of folded 4x4s and tegaderm became saturated with serosanguinous drainage. After patient transferred to post op at 1016, I returned to post op to reinforce dressing with kerlix and silk tape.
== END 2020-03-05 10:44 | disposition home or self-care (01) ==
LOC: OR 07:21
PROVIDERS: PCP Physician Assistant; Visit Provider Surgery
PROC: (CPT 11402; principal; 2020-03-05 09:00)
DX: D17.21 Benign lipomatous neoplasm of skin and subcutaneous tissue of right arm (principal); I10 Essential (primary) hypertension; G43.909 Migraine, unspecified, not intractable, without status migrainosus; Z87.891 Personal history of nicotine dependence; Z79.899 Other long term (current) drug therapy; Z90.710 Acquired absence of both cervix and uterus; Z83.3 Family history of diabetes mellitus; Z82.49 Family history of ischemic heart disease and other diseases of the circulatory system
CPT/HCPCS: 11402 ×2; 96374

== ENCOUNTER → 2020-04-21 13:54 | Outpatient (CLI) | payer MEDICAID, SELFPAY ==
[2020-04-21 14:40] LABS: Basophils # 0.1 K/mm3 (0-0.2); Basophils % 0.7 % (0.1-2.0); Eosinophils # 0.4 K/mm3 (0.0-0.4); Eosinophils % 5.4 % (0.1-12.0); Hematocrit 42.7 % (37.0-47.0); Hemoglobin 14.1 g/dL (12.2-16.2); Lymphocytes # 2.4 K/mm3 (0.7-4.5); Lymphocytes % 31.6 % (10-50); Mean Corpuscular HGB Conc 32.9 g/dL (31.8-35.4); Mean Corpuscular Hemoglobin 31.4 pg (27.0-31.2); Mean Corpuscular Volume 95.5 fl (81-99); Mean Platelet Volume 7.5 fl (7.4-10.4); Monocytes # 0.5 K/mm3 (0.1-1.0); Monocytes % 5.9 % (1.7-9.3); Neutrophils # 4.3 K/mm3 (1.8-7.8); Neutrophils % 56.4 % (37.0-80.0); Platelet Count 330 K/mm3 (142-424); Red Blood Count 4.47 M/mm3 (4.20-5.40); Red Cell Distribution Width 13.3 % (11.5-17.5); White Blood Count 7.7 K/mm3 (4.8-10.8)
[2020-04-21 15:29] LABS: Alanine Aminotransferase 10 U/L (12-78); Albumin Level 3.7 g/dl (3.5-5.0); Albumin/Globulin Ratio 1.4 (1.1-1.8); Alkaline Phosphatase 148 U/L (38-126); Anion Gap 10.2 mEq/L (5-15); Aspartate Amino Transferase 21 U/L (14-36); Bilirubin,Total 0.4 mg/dl (0.2-1.3); Blood Urea Nitrogen 10 mg/dl (7-17); Calcium 9.2 mg/dl (8.4-10.2); Carbon Dioxide 30 mmol/L (22.0-30.0); Chloride 100 mmol/L (98-107); Chol/HDL Ratio 3.4 (1-3.5); Cholesterol 212 mg/dl (140-200); Estimated Glomerular Filt Rate 87 ml/min (>60); GFR (African American) 106 ML/MIN (>60); Globulin 2.6 g/dL (1.3-3.2); Glucose 69 mg/dl (74-100); HDL Cholesterol 63 mg/dl (40-60); Potassium 4.2 mmoL/L (3.5-5.1); Sodium 136 mmol/L (136-145); Total Protein,Serum 6.3 g/dl (6.3-8.2); Triglycerides 211 mg/dl (30-150); VLDL Cholesterol 42 mg/dL (0-40)
[2020-04-21 15:40] LABS: Direct LDL Cholesterol 126.82 mg/dL (100-129)
[2020-04-21 15:46] LABS: T4 (Thyroxine) 12.6 ug/dl (5.53-11.0)
[2020-04-21 15:59] LABS: Thyroid Stimulating Hormone 0.23 uIU/mL (0.465-4.68)
== END ==
PROVIDERS: Visit Provider Physician Assistant
DX: E07.9 Disorder of thyroid, unspecified (principal)
CPT/HCPCS: 36415; 80053; 80061; 84436; 84443; 85025

== ENCOUNTER → 2020-05-18 08:57 | Outpatient (CLI) | payer MEDICAID, SELFPAY ==
--- NOTE | 2020-05-18 08:57 | US_ITS ---
PROCEDURE: US THYROID CLINICAL INDICATION: lump in neck COMPARISON: No exams were available for comparison FINDINGS: Right lobe: The right lobe measures 1.4 x 3.6 x 1.5 cm. There is somewhat diffuse and course heterogenic echogenicity of the right lobe. There is no definite cystic or solid nodule identified. Left lobe: The left lobe measures 0.9 x 3.0 x 1.5 cm and shows diffuse heterogenic echogenicity with without a definite cystic or solid. Isthmus: The isthmus is mildly thickened measuring 0.6 cm with somewhat heterogenic echogenicity. Additional findings: IMPRESSION: Normal-sized gland with diffuse heterogenic and slightly echogenic parenchyma in both lobes and thyroiditis is a consideration. Dictated by: Dr. Horacio June MD 05/18/2020 12:00 Dr. Horacio June MD in [facility] 05/18/2020 12:00
== END ==
PROVIDERS: PCP Physician Assistant; Visit Provider Nurse Practitioner Family
DX: R13.10 Dysphagia, unspecified (principal)
CPT/HCPCS: 76536

== ENCOUNTER → 2020-05-27 09:00 | Outpatient (POV) | payer MEDICAID, SELFPAY ==
--- NOTE | 2020-05-27 09:30 | HMH.PAINSOAP ---
[facility] Pain Management SOAP Note Subjective:: Patient is a pleasant 55-year-old white female who presents today for follow-up. She is being treated for chronic low back pain with radiation into bilateral buttocks and hips. Patient says the pain does radiate into her legs. She says that she has undergone SI joint injections in the past and has gotten up to 80% relief for a month. She rates her pain a 4 out of 10 today. Patient says that most of her pain today is down in her right low back area with radiation into her right hip and right lateral thigh. She says the pain is worse with standing and walking. She says that she does get relief when she is sitting. Patient has tried physical therapy for greater than 6 weeks along with a continued home stretching program. She is also tried ice and heat therapies. The injections have been done in the past and have given her relief. She does have a positive Teresa, Ellen's, distraction test. She also has notable tenderness over her right SI joint. Review of Systems General: No recent weight changes, no fever, no sleep disturbances Respiratory: No cough, no shortness of air, no recurring pulmonary infections Cardiovascular/peripheral vascular: No chest pain, no palpitations, no edema, no shortness of breath Gastrointestinal: No new onset incontinence, normal bowel movements reported Genitourinary: No new onset incontinence Musculoskeletal: Right low back pain, right hip pain, right leg pain Psychiatric: Normal mood/affect Neurological: [Denies weakness in extremities], [denies balance issues] Objective:: Physical exam General: Alert and oriented x3, no acute distress, pleasant and cooperative, [on room air] Lungs: Respirations even and unlabored, symmetrical chest expansion Eyes: PERRL Musculoskeletal: Flexion and extension of lumbar spine somewhat guarded secondary to pain, deep tendon reflexes normal, strength in upper and lower extremities [5/5], [abnormal gait noted] positive Due West's test, positive Ellen's test, positive distraction test Neurological: Speech clear, talent engineer equal, no gross sensory deficit Assessment:: Sacroiliitis right, chronic low back pain Plan:: We will schedule the patient for a diagnostic right SI joint injection. She does have pain that radiates into the left side as well, however, the right side is worse today. She does have a positive Teresa test, Ellen's test, positive distraction test. She has tried physical therapy along with a continued home stretching program. She is tried ice and heat therapies. She does get 80% relief following the injections for up to a month. She and I did discuss corner lock procedure today. If she does get relief with her diagnostic SI joint injection, we will proceed with a SI stabilization device. We will see her back in the clinic after her injection to reassess her symptoms. She has been instructed to contact clinic if she has any concerns before next appointment. The patient and I specifically discussed risk factors for COVID19. These risks include, but are not limited to age greater than 60, heart or lung disease, diabetes, immunosuppression, and travel. We also discussed NSAIDs may worsen COVID19 infection or symptoms. Patient should not use NSAIDs to treat COVID19 signs or symptoms. Patient was also informed that any type of corticosteroid of any form (oral or injection) will decrease the patient's immune system response and may increase the likelihood of COVID19 infection [address] symptoms[address]. Wallis has reviewed this note and agrees with this plan of care. This note was dictated using voice recognition software and make contain errors or omissions. [facility] History I have reviewed the patient's past medical history: Yes Medical History: Reports:: Gastroesophageal Reflux Disease(GERD), Hyperlipidemia, Hypertension, Migraine Denies:: Cancer, Diabetes Mellitus Type 1, Diabetes Mellitus Type 2, Internal Pacemaker, MRSA,
[2020-05-27 09:52] VITALS: BP 128/82; PULSE 74; RESP 17; TEMP 36.6; O2SAT 98; BMI 39.3
== END ==
PROVIDERS: PCP Physician Assistant; Visit Provider Clinical Nurse Specialist Family Health
DX: M46.1 Sacroiliitis, not elsewhere classified (principal); M54.5 Low back pain
CPT/HCPCS: 99212

== ENCOUNTER 2020-06-11 13:26 | Day surgery (SDC) | payer MEDICAID, SELFPAY ==
[2020-06-11 13:54] VITALS: BP 126/75; PULSE 62; RESP 19; TEMP 36.6; O2SAT 100; BMI 39.8
--- NOTE | 2020-06-11 14:17 | P.PCN_ITS ---
- Procedure Date: 06/11/20 Time: 14:17 Anesthesiologist:: Valentin Wallis MD Complications:: None Pre-procedure Diagnosis:: Sacroiliitis Post-procedure Diagnosis:: Same Indications for Procedure:: Patient is a pleasant 55-year-old white female who we are treating for right- sided hip pain. She is undergone SI joint injections in the past with good relief of her pain symptoms. Today she has increasing pain over the right side. She is tender over her right SI joint. She is positive SI joint compression test. She is positive Ellen's test on the right side. She has a positive Teresa test on the right side. We will do a right SI joint injection under fluoroscopy today to give her some relief of her pain symptoms. Procedure Details:: Right SI joint injection under fluoroscopy Informed consent was obtained and the risks and benefits of the procedure was going to the patient. Patient was taken to the procedure room. Patient was placed prone on the procedure table. The right hip was prepped using ChloraPrep. The skin and subcutaneous tissues were anesthetized using lidocaine. I placed a 22-gauge spinal needle into the inferior aspect of the ri ght SI joint. Needle placement was confirmed with dye. After this we injected 5 mL bupivacaine 0.25% and Depo-Medrol 40 mg into the right SI joint. The patient tolerated the procedure well with no complication. Plan and Disposition:: We will follow-up with her in 2 weeks. Will reevaluate symptoms at that time. If she does get significant relief she may be a good candidate for right SI joint stabilization.
[2020-06-11 14:20] VITALS: BP 124/71; BP 125/74; PULSE 74; PULSE 85; RESP 18; O2SAT 99
[2020-06-11 14:26] VITALS: BP 132/73; PULSE 66; RESP 20; O2SAT 100
== END 2020-06-11 14:27 | disposition home or self-care (01) ==
LOC: SC.PAINP 13:27
PROVIDERS: PCP Physician Assistant; Visit Provider Anesthesiology
DX: M46.1 Sacroiliitis, not elsewhere classified (principal); I10 Essential (primary) hypertension; K21.9 Gastro-esophageal reflux disease without esophagitis; E03.9 Hypothyroidism, unspecified; Z82.49 Family history of ischemic heart disease and other diseases of the circulatory system; E78.5 Hyperlipidemia, unspecified; F41.9 Anxiety disorder, unspecified; G43.909 Migraine, unspecified, not intractable, without status migrainosus; Z98.84 Bariatric surgery status; Z79.899 Other long term (current) drug therapy
CPT/HCPCS: 27096; G0260; J1040; Q9966

== ENCOUNTER → 2020-07-01 15:03 | Outpatient (POV) | payer MEDICAID, SELFPAY ==
[2020-07-01 15:12] VITALS: BP 125/88; PULSE 85; RESP 18; O2SAT 98; BMI 38.9
--- NOTE | 2020-07-01 15:25 | HMH.PAINSOAP ---
[facility] Pain Management SOAP Note Subjective:: Patient is a pleasant 55-year-old white female who presents today for follow-up after right SI joint injection. She has been treated for chronic low back pain with right hip pain. Patient has had SI injections in the past and has generally gotten relief, however, she says she did not get any relief with these injections. She has also had lumbar epidural steroid injections in the past for which she gets short-term relief but her pain does return. She says she gets up to a couple weeks of relief with the epidural steroid injections, but it is never long-lasting. Patient is also complaining of neck pain with radiation into her bilateral arms causing numbness and tingling. This has been ongoing for the last 3 to 4 months. Patient does not have any imaging of her cervical spine. She has tried physical therapy in the past for 6 weeks no relief. She has also had oral medications with no relief. She has tried ice and heat therapies along with a continued home stretching program. Injective therapy has not been long-lasting for her. Review of Systems General: No recent weight changes, no fever, no sleep disturbances Respiratory: No cough, no shortness of air, no recurring pulmonary infections Cardiovascular/peripheral vascular: No chest pain, no palpitations, no edema, no shortness of breath Gastrointestinal: No new onset incontinence, normal bowel movements reported Genitourinary: No new onset incontinence Musculoskeletal: Low back pain, right leg pain, neck pain, bilateral arm numbness and tingling Psychiatric: Normal mood/affect Neurological: [Denies weakness in extremities], [denies balance issues] Objective:: Physical exam General: Alert and oriented x3, no acute distress, pleasant and cooperative, [on room air] Lungs: Respirations even and unlabored, symmetrical chest expansion Eyes: PERRL Musculoskeletal: Flexion and extension of cervical and lumbar spine somewhat guarded secondary to pain, deep tendon reflexes normal, strength in upper and lower extremities [5/5], [abnormal gait noted] Neurological: Speech clear, data governance analyst equal, no gross sensory deficit Assessment:: Degenerative disc disease lumbar spine with lumbar radiculopathy symptoms, sacroiliitis, neck pain with cervical radiculopathy symptoms Plan:: We will schedule the patient for cervical MRI. We have exhausted all conservative measures at this point for her low back pain. She is now having neck pain with bilateral arm pain with numbness and tingling. We will schedule the patient for cervical MRI along with psychological evaluation to see if she is a candidate for possible intrathecal therapy versus spinal cord stimulation. We will see her back in the clinic after her cervical MRI discuss a further plan of care. Patient has been instructed to contact the clinic if she has any concerns before next appointment. The patient and I specifically discussed risk factors for COVID19. These risks include, but are not limited to age greater than 60, heart or lung disease, diabetes, immunosuppression, and travel. We also discussed NSAIDs may worsen COVID19 infection or symptoms. Patient should not use NSAIDs to treat COVID19 signs or symptoms. Patient was also informed that any type of corticosteroid of any form (oral or injection) will decrease the patient's immune system response and may increase the likelihood of COVID19 [address] symptoms[address] Wallis has reviewed this note and agrees with this plan of care. This note was dictated using voice recognition software and make contain errors or omissions. [facility] History I have reviewed the patient's past medical history: Yes Medical History: Reports:: Gastroesophageal Reflux Disease(GERD), Hyperlipidemia, Hypertension, Migraine Denies:: Cancer, Diabetes Mellitus Type 1, Diabetes Mellitus Type 2, Internal Pacemaker, MRSA, Seizures *Have you ever received a pneumonia vaccine?: Yes
== END ==
PROVIDERS: PCP Physician Assistant; Visit Provider Clinical Nurse Specialist Family Health
DX: M51.16 Intervertebral disc disorders with radiculopathy, lumbar region (principal); M46.1 Sacroiliitis, not elsewhere classified; M54.12 Radiculopathy, cervical region
CPT/HCPCS: 99212

== ENCOUNTER → 2020-07-07 15:33 | Outpatient (CLI) | payer MEDICAID, SELFPAY ==
--- NOTE | 2020-07-07 | MR_ITS ---
PROCEDURE: MR CERVICAL SPINE WO CON CLINICAL INDICATION: NECK PAIN NECK PAIN WITH NUMBNESS. NO INJURY OR TRAUMA. NO PRIOR. COMPARISON: No exams were available for comparison TECHNIQUE: Standard multiplanar multiecho sequences are performed without contrast. 3-D MIP and myelographic images are also rendered and reviewed FINDINGS: There is straightening of the cervical lordosis. This may be due to patient positioning or muscle spasm. The C2-C3: Unremarkable. C3-C4: Left-sided uncovertebral hypertrophy with left sided foraminal narrowing. C4-C5: Degenerative disc disease with endplate hypertrophic change. There is a broad-based right paracentral disc osteophyte complex which is causing some flattening of the cord anteriorly on the right. There is bilateral foraminal narrowing from uncovertebral hypertrophy. C5-C6: Degenerative disc disease with endplate sclerosis. There is a small broad-based central disc protrusion. There is impingement upon the cord anteriorly with canal stenosis with canal measuring 7 8 mm. Increased T2 signal is present within the cord at this area centrally and on the left and may be due to underlying gliotic change.. The area of increased signal intensity of the cord measures approximately 6 x 5 mm C6-C7: Degenerative disc disease with bulging disc slightly eccentric toward the left with endplate hypertrophic change with mild bilateral foraminal narrowing. Type 2 endplate changes C7-T1: Degenerative disc disease with endplate hypertrophic change and moderate bilateral foraminal narrowing. Type 1 endplate changes IMPRESSION: 1. Abnormal MRI of the cervical spine. Multilevel cervical spondylosis is present with degenerative disc disease bulging disc and uncovertebral and facet hypertrophy. Please see above for detailed description at each level. 2. C4-C5: Degenerative disc disease with endplate hypertrophic change. There is a broad-based right paracentral disc osteophyte complex which is causing some flattening of the cord anteriorly on the right. There is bilateral foraminal narrowing from uncovertebral hypertrophy. 3. C5-C6: Degenerative disc disease with endplate sclerosis. There is a small broad-based central disc protrusion. There is impingement upon the cord anteriorly with canal stenosis with canal measuring 7 8 mm. Increased T2 signal is present within the cord at this area centrally and on the left and may be due to underlying gliotic change.. The area of increased signal intensity of the cord measures approximately 6 x 5 mm 4. C6-C7: Degenerative disc disease with bulging disc slightly eccentric toward the left with endplate hypertrophic change with mild bilateral foraminal narrowing. Type 2 endplate changes Dictated by: Nima Duggan MD 07/08/2020 12:08 Nima Duggan MD in [place] 07/08/2020 12:08
== END ==
PROVIDERS: PCP Physician Assistant; Visit Provider Anesthesiology
DX: M54.2 Cervicalgia (principal)
CPT/HCPCS: 72141; 76376

== ENCOUNTER → 2020-07-19 08:49 | Outpatient (POV) | payer MEDICAID, SELFPAY ==
[2020-07-19 09:02] VITALS: BP 133/77; PULSE 74; RESP 18; O2SAT 98; BMI 40.1
--- NOTE | 2020-07-19 09:16 | HMH.PAINSOAP ---
[facility] Pain Management SOAP Note Subjective:: Patient is a pleasant 55-year-old white female who presents today for follow-up. Patient has quite a bit of neck pain with radiation into her arms. Patient had an MRI showing an impinged nerve at C5-C6. Patient and I talked about options. She is had injections in the past with no long-term relief. She rates her pain today a 5 out of 10. She is recently suffered the loss of her brother. Patient and I discussed surgical consultation. She also may be a candidate for an intrathecal pain pump in the future however I do believe a surgical consultation would be appropriate prior to this. ROS General: no recent weight change, no fever, no sleep disturbances Respiratory: no cough, no shortness of air, no recurring pulmonary infections Cardiovascular/Peripheral Vascular: No chest pain, No palpitations, no edema, no shortness of breath. Gastrointestinal: no new onset incontinence, normal bowel movements reported Genitourinary: no new onset incontinence Musculoskeletal: Neck pain, arm pain, back pain, leg pain Psychiatric: normal mood/ affect Neurological: [denies new onset weakness in extremities], [denies new onset balance issues] Objective:: Physical Exam General: Alert and oriented x3, no acute distress, pleasant and cooperative, [on room air] Lungs: Resps E/U, Symmetrical chest expansion, Eyes: PERRL Musculoskeletal: Flexion and extension of lumbar and cervical spine somewhat guarded secondary to pain, deep tendon reflexes normal, strength in upper and lower extremities [5/5], antalgic gait noted as Neurological: speech clear, assistant education director equal, no gross sensory deficits Assessment:: Degenerative disc disease lumbar spine lumbar radiculopathy symptoms, neck pain degenerative disc disease cervical spine cervical radiculopathy Plan:: We will send the patient to Dr. Melendez for consultation. We will see her back after this reassess her symptoms at that time she has been instructed to call the office if she has any issues prior to her next appointment. Dr. Wallis has reviewed this note and agrees with this plan of care. This note was dictated using voice recognition software and may contain errors or omissions [facility] History I have reviewed the patient's past medical history: Yes Medical History: Reports:: Gastroesophageal Reflux Disease(GERD), Hyperlipidemia, Hypertension, Migraine Denies:: Cancer, Diabetes Mellitus Type 1, Diabetes Mellitus Type 2, Internal Pacemaker, MRSA, Seizures *Have you ever received a pneumonia vaccine?: Yes *Have you received a flu vaccine this season?: Yes Other Medical History: Reports: Hypothyroidism, Thyroid Disease. Denies: Blood Transfusion Reaction Other Surgeries: Yes: Colonoscopy, Hysterectomy-Partial, Skin Cancer Excision, Other. No: Pacemaker Amputation: No Fractures: No - *Social History Smoking Status: Former smoker Tobacco Type: cigarettes # Packs/Day (cigarettes): 1 Alcohol Intake: never Alcohol Intake Frequency:: other Substance Use Type: denies use *Occupational Status:: other Housing: house Household Members: spouse, children *Travel in the last 8 weeks: None Family Hx:: Coronary Artery Disease, Hypertension, Diabetes
== END ==
PROVIDERS: PCP Physician Assistant; Visit Provider Clinical Nurse Specialist Family Health
DX: M51.16 Intervertebral disc disorders with radiculopathy, lumbar region (principal); M54.12 Radiculopathy, cervical region; K21.9 Gastro-esophageal reflux disease without esophagitis; I10 Essential (primary) hypertension; E78.5 Hyperlipidemia, unspecified; G43.909 Migraine, unspecified, not intractable, without status migrainosus; E03.9 Hypothyroidism, unspecified; Z85.828 Personal history of other malignant neoplasm of skin
CPT/HCPCS: 99212

== ENCOUNTER → 2020-08-02 10:14 | Outpatient (CLI) | payer MEDICAID, SELFPAY ==
[2020-08-02 12:03] LABS: Free T4 (Free Thyroxine) 1.31 ng/dl (0.78-2.19)
[2020-08-02 12:17] LABS: Thyroid Stimulating Hormone 2.19 uIU/mL (0.465-4.68)
== END ==
PROVIDERS: Visit Provider Otolaryngology
DX: E03.9 Hypothyroidism, unspecified (principal)
CPT/HCPCS: 36415; 84439; 84443

== ENCOUNTER → 2020-08-11 11:00 | Outpatient (CLI) | payer MEDICAID, SELFPAY ==
[2020-08-11 12:17] LABS: Basophils # 0.1 K/mm3 (0-0.2); Basophils % 0.9 % (0.1-2.0); Eosinophils # 0.4 K/mm3 (0.0-0.4); Eosinophils % 4.6 % (0.1-12.0); Hemoglobin 15.7 g/dL (12.2-16.2); Lymphocytes # 2.6 K/mm3 (0.7-4.5); Mean Corpuscular HGB Conc 34.2 g/dL (31.8-35.4); Mean Corpuscular Hemoglobin 31.6 pg (27.0-31.2); Mean Corpuscular Volume 92.4 fl (81-99); Mean Platelet Volume 7.8 fl (7.4-10.4); Monocytes # 0.4 K/mm3 (0.1-1.0); Monocytes % 5.5 % (1.7-9.3); Neutrophils # 4.4 K/mm3 (1.8-7.8); Neutrophils % 55.9 % (37.0-80.0); Platelet Count 376 K/mm3 (142-424); Red Blood Count 4.97 M/mm3 (4.20-5.40); Red Cell Distribution Width 13.9 % (11.5-17.5); White Blood Count 7.9 K/mm3 (4.8-10.8)
[2020-08-11 13:36] LABS: Chloride 98 mmol/L (98-107); Potassium 4.3 mmoL/L (3.5-5.1); Sodium 137 mmol/L (136-145)
[2020-08-11 13:39] LABS: Anion Gap 11.3 mEq/L (5-15); Blood Urea Nitrogen 9 mg/dl (7-17); Calcium 9.8 mg/dl (8.4-10.2); Carbon Dioxide 32 mmol/L (22.0-30.0); Estimated Glomerular Filt Rate 65 ml/min (>60); GFR (African American) 79 ML/MIN (>60); Glucose 92 mg/dl (74-100)
[2020-08-11 15:18] LABS: Coronavirus 19 IgG Antibody Negative (Negative); Coronavirus 19 IgM Antibody Negative (Negative)
== END ==
PROVIDERS: Visit Provider Anesthesiology
DX: Z01.818 Encounter for other preprocedural examination (principal); M51.36 Other intervertebral disc degeneration, lumbar region
CPT/HCPCS: 36415; 80048; 85025; 86328

== ENCOUNTER → 2020-09-13 09:48 | Outpatient (CLI) | payer MEDICAID, SELFPAY ==
[2020-09-13 10:30] LABS: Basophils # 0.1 K/mm3 (0-0.2); Eosinophils # 0.4 K/mm3 (0.0-0.4); Eosinophils % 5.7 % (0.1-12.0); Hemoglobin 14.9 g/dL (12.2-16.2); Lymphocytes # 2.6 K/mm3 (0.7-4.5); Lymphocytes % 34.7 % (10-50); Mean Corpuscular HGB Conc 32.4 g/dL (31.8-35.4); Mean Corpuscular Hemoglobin 30.3 pg (27.0-31.2); Mean Corpuscular Volume 93.4 fl (81-99); Monocytes # 0.4 K/mm3 (0.1-1.0); Monocytes % 5.3 % (1.7-9.3); Neutrophils % 53.3 % (37.0-80.0); Platelet Count 370 K/mm3 (142-424); Red Blood Count 4.93 M/mm3 (4.20-5.40); Red Cell Distribution Width 13.9 % (11.5-17.5); White Blood Count 7.6 K/mm3 (4.8-10.8)
[2020-09-13 10:47] LABS: Chloride 101 mmol/L (98-107)
[2020-09-13 10:48] LABS: Potassium 4.4 mmoL/L (3.5-5.1); Sodium 136 mmol/L (136-145)
[2020-09-13 10:51] LABS: Anion Gap 8.4 mEq/L (5-15); Blood Urea Nitrogen 11 mg/dl (7-17); Calcium 9.7 mg/dl (8.4-10.2); Carbon Dioxide 31 mmol/L (22.0-30.0); Estimated Glomerular Filt Rate 65 ml/min (>60); GFR (African American) 79 ML/MIN (>60); Glucose 84 mg/dl (74-100)
[2020-09-13 11:33] LABS: Coronavirus 19 IgG Antibody Negative (Negative); Coronavirus 19 IgM Antibody Negative (Negative)
== END ==
PROVIDERS: Visit Provider Anesthesiology
DX: Z01.818 Encounter for other preprocedural examination (principal); Z03.818 Encounter for observation for suspected exposure to other biological agents ruled out; M51.36 Other intervertebral disc degeneration, lumbar region
CPT/HCPCS: 36415; 80048; 85025; 86328

== ENCOUNTER → 2021-01-06 10:02 | Outpatient (POV) | payer MEDICAID, SELFPAY ==
[2021-01-06 10:33] VITALS: BP 133/77; PULSE 74; RESP 20; O2SAT 98; BMI 38.9
--- NOTE | 2021-01-06 11:21 | HMH.PAINSOAP ---
[facility] Pain Management SOAP Note Subjective:: Patient is a pleasant 55-year-old white female who presents today for follow-up. Since her last visit patient is undergone an ACDF with Dr. Melendez. She has been released. Patient wants to discuss her bilateral SI joint pain. Patient has a history of SI joint pain. Patient has a positive Teresa test SI joint compression test Ellen's test and distraction test bilaterally. Patient typically gets 80% relief with injective therapy up to 3 months. She would like to move forward with this. ROS General: no recent weight change, no fever, no sleep disturbances Respiratory: no cough, no shortness of air, no recurring pulmonary infections Cardiovascular/Peripheral Vascular: No chest pain, No palpitations, no edema, no shortness of breath. Gastrointestinal: no new onset incontinence, normal bowel movements reported Genitourinary: no new onset incontinence Musculoskeletal: SI joint pain Psychiatric: normal mood/ affect Neurological: [denies new onset weakness in extremities], [denies new onset balance issues] Objective:: Physical Exam General: Alert and oriented x3, no acute distress, pleasant and cooperative, [on room air] Lungs: Resps E/U, Symmetrical chest expansion, Eyes: PERRL Musculoskeletal: Flexion and extension of lumbar spine somewhat guarded secondary to pain, deep tendon reflexes normal, strength in upper and lower extremities [5/5], [abnormal gait noted] Neurological: speech clear, earth auger operator equal, no gross sensory deficits Assessment:: Sacroiliitis Plan:: We will see the patient back for bilateral SI joint injections. She has been instructed to call the office if she has any issues prior to her next appointment. We will follow up with her after her injection reassess her symptoms at that time. Dr. Wallis has reviewed this note and agrees with this plan of care. This note was dictated using voice recognition software and may contain errors or omissions [facility] History I have reviewed the patient's past medical history: Yes Medical History: Reports:: Gastroesophageal Reflux Disease(GERD), Hyperlipidemia, Hypertension, Migraine Denies:: Cancer, Diabetes Mellitus Type 1, Diabetes Mellitus Type 2, Internal Pacemaker, MRSA, Seizures *Have you ever received a pneumonia vaccine?: No *Have you received a flu vaccine this season?: Yes Other Medical History: Reports: Hypothyroidism, Thyroid Disease. Denies: Blood Transfusion Reaction Other Surgeries: Yes: Colonoscopy, Hysterectomy-Partial, Skin Cancer Excision, Other. No: Pacemaker Amputation: No Fractures: No - *Social History Smoking Status: Former smoker Tobacco Type: cigarettes # Packs/Day (cigarettes): 1 Alcohol Intake: never Alcohol Intake Frequency:: other Substance Use Type: denies use *Occupational Status:: other Housing: house Household Members: spouse, children *Travel in the last 8 weeks: None Family Hx:: Coronary Artery Disease, Hypertension, Diabetes
== END ==
PROVIDERS: Visit Provider Clinical Nurse Specialist Family Health
DX: M46.1 Sacroiliitis, not elsewhere classified (principal)
CPT/HCPCS: 99212; G0463

== ENCOUNTER 2021-01-14 09:31 | Day surgery (SDC) | payer MEDICAID, SELFPAY ==
[2021-01-14 09:51] VITALS: BP 148/63; PULSE 69; RESP 18; TEMP 36.6; O2SAT 98; BMI 40.1
[2021-01-14 10:19] VITALS: BP 148/79; PULSE 65; RESP 18; O2SAT 98
[2021-01-14 10:25] VITALS: BP 143/89; PULSE 89; RESP 18; O2SAT 99
[2021-01-14 10:40] VITALS: BP 136/70; PULSE 69; RESP 18; O2SAT 98
--- NOTE | 2021-01-14 10:40 | HMH.PMPROC ---
- Procedure Date: 01/14/21 Time: 10:40 Anesthesiologist:: Valentin Wallis MD Complications:: None Pre-procedure Diagnosis:: Sacroiliitis Post-procedure Diagnosis:: Same Indications for Procedure:: The patient is a pleasant 55-year-old white female who we are treating for bilateral hip pain. She has had a previous ACDF with Dr. Melendez. Most of her pain now is over her SI joints. She does have a positive Ellen's test bilaterally. She has positive Teresa test bilaterally. She is positive SI joint compression test bilaterally. We will do bilateral SI joint injections under fluoroscopy today to help with her pain symptoms. Procedure Details:: B/L SI joint injection under fluoroscopy Informed consent was obtained and the risks and benefits of the procedure was explained to the patient. The patient was taken to the procedure room and placed prone on the procedure table. The patient was prepped using ChloraPrep. The skin and subcutaneous tissues overlying the SI joints were anesthetized using lidocaine. I placed a 22-gauge needle first in the left SI joint and second in the right SI joint. Needle placement was confirmed with dye. After this we injected 5 mL bupivacaine 0.25% and Depo-Medrol 40 mg into each SI joint. Patient tolerated the procedure well with no complication. Plan and Disposition:: We will follow-up with her in 2 weeks. Will reevaluate symptoms at that time.
== END 2021-01-14 10:40 | disposition home or self-care (01) ==
LOC: SC.PAINP 09:33
PROVIDERS: PCP Physician Assistant; Visit Provider Anesthesiology
DX: M46.1 Sacroiliitis, not elsewhere classified (principal); G43.909 Migraine, unspecified, not intractable, without status migrainosus; K21.9 Gastro-esophageal reflux disease without esophagitis; E03.9 Hypothyroidism, unspecified; Z98.84 Bariatric surgery status; I10 Essential (primary) hypertension; E78.5 Hyperlipidemia, unspecified; F41.9 Anxiety disorder, unspecified; F32.9 Major depressive disorder, single episode, unspecified
CPT/HCPCS: 27096; G0260; J1030; Q9966

== ENCOUNTER → 2021-01-27 10:55 | Outpatient (CLI) | payer MEDICAID, SELFPAY ==
[2021-01-27 11:42] LABS: Basophils # 0.1 K/mm3 (0-0.2); Basophils % 0.9 % (0.1-2.0); Eosinophils # 0.3 K/mm3 (0.0-0.4); Eosinophils % 3.3 % (0.1-12.0); Hematocrit 48.3 % (37.0-47.0); Hemoglobin 15.7 g/dL (12.2-16.2); Lymphocytes # 2.5 K/mm3 (0.7-4.5); Lymphocytes % 28.2 % (10-50); Mean Corpuscular HGB Conc 32.5 g/dL (31.8-35.4); Mean Corpuscular Hemoglobin 30.1 pg (27.0-31.2); Mean Corpuscular Volume 92.6 fl (81-99); Mean Platelet Volume 7.6 fl (7.4-10.4); Monocytes # 0.5 K/mm3 (0.1-1.0); Monocytes % 5.5 % (1.7-9.3); Neutrophils # 5.5 K/mm3 (1.8-7.8); Neutrophils % 62.1 % (37.0-80.0); Platelet Count 330 K/mm3 (142-424); Red Blood Count 5.22 M/mm3 (4.20-5.40); Red Cell Distribution Width 13.6 % (11.5-17.5); White Blood Count 8.8 K/mm3 (4.8-10.8)
[2021-01-27 11:51] LABS: Hemoglobin A1C 5.6 % (4.0-6.0)
[2021-01-27 11:57] LABS: Chloride 99 mmol/L (98-107); Sodium 135 mmol/L (136-145)
[2021-01-27 11:58] LABS: Potassium 4.7 mmoL/L (3.5-5.1)
[2021-01-27 12:00] LABS: Alanine Aminotransferase 12 U/L (12-78); Albumin Level 4.1 g/dl (3.5-5.0); Albumin/Globulin Ratio 1.6 (1.1-1.8); Alkaline Phosphatase 137 U/L (38-126); Anion Gap 9.7 mEq/L (5-15); Aspartate Amino Transferase 21 U/L (14-36); Bilirubin,Total 0.5 mg/dl (0.2-1.3); Blood Urea Nitrogen 14 mg/dl (7-17); Carbon Dioxide 31 mmol/L (22.0-30.0); Estimated Glomerular Filt Rate 74 ml/min (>60); GFR (African American) 90 ML/MIN (>60); Globulin 2.6 g/dL (1.3-3.2); Total Protein,Serum 6.7 g/dl (6.3-8.2)
[2021-01-27 12:01] LABS: Calcium 9.7 mg/dl (8.4-10.2); Chol/HDL Ratio 2.8 (1-3.5); Cholesterol 215 mg/dl (140-200); Glucose 93 mg/dl (74-100); HDL Cholesterol 76 mg/dl (40-60); Triglycerides 90 mg/dl (30-150); VLDL Cholesterol 18 mg/dL (0-40)
[2021-01-27 12:12] LABS: Direct LDL Cholesterol 114.93 mg/dL (100-129)
[2021-01-27 12:17] LABS: 25-OH Vitamin D, Total 33.5 ng/mL (30-100); T4 (Thyroxine) 5.2 ug/dl (5.53-11.0)
== END ==
PROVIDERS: Visit Provider Nurse Practitioner Family
DX: E03.9 Hypothyroidism, unspecified (principal); R73.03 Prediabetes; I10 Essential (primary) hypertension; E55.9 Vitamin D deficiency, unspecified; E66.9 Obesity, unspecified; Z68.43 Body mass index [BMI] 50.0-59.9, adult
CPT/HCPCS: 36415; 80053; 80061; 82306; 83036; 84436; 84443; 85025

== ENCOUNTER → 2021-02-07 10:04 | Outpatient (POV) | payer MEDICAID, SELFPAY ==
[2021-02-07 10:43] VITALS: BP 123/72; PULSE 64; RESP 18; O2SAT 95; BMI 40.4
--- NOTE | 2021-02-07 13:50 | HMH.PAINSOAP ---
[facility] Pain Management SOAP Note Subjective:: She is a pleasant 56-year-old white female who presents today for follow-up. Patient had bilateral SI joint injections. Patient did not do as well with these that she has in the past she rates her pain 4-10. She is also being worked up by Dr. Melendez for potential additional surgeries. We discussed that we will hold off any interventions until she is cleared by Dr. Melendez. ROS General: no recent weight change, no fever, no sleep disturbances Respiratory: no cough, no shortness of air, no recurring pulmonary infections Cardiovascular/Peripheral Vascular: No chest pain, No palpitations, no edema, no shortness of breath. Gastrointestinal: no new onset incontinence, normal bowel movements reported Genitourinary: no new onset incontinence Musculoskeletal: [Neck pain, back pain Psychiatric: normal mood/ affect Neurological: [denies new onset weakness in extremities], [denies new onset balance issues] Objective:: Physical Exam General: Alert and oriented x3, no acute distress, pleasant and cooperative, [on room air] Lungs: Resps E/U, Symmetrical chest expansion, [CTA bilateral] Eyes: PERRL Musculoskeletal: Flexion and extension of cervical and lumbar spine somewhat guarded secondary to pain, deep tendon reflexes normal, strength in upper and lower extremities [5/5], [abnormal gait noted] Neurological: speech clear, backhaul driver equal, no gross sensory deficits Assessment:: Degenerative disc disease cervical spine cervical radiculopathy, back pain, postlaminectomy syndrome Plan:: We will see the patient back after she is cleared by Dr. Melendez. We will change her gabapentin to Lyrica 75 mg 1 p.o. twice daily. Patient has been on gabapentin for quite some time and and feels it is not as beneficial as it used to be. [facility] #[id number] reviewed and appropriate. Dr. Wallis has reviewed this note and agrees with this plan of care. This note was dictated using voice recognition software and may contain errors or omissions [facility] History I have reviewed the patient's past medical history: Yes Medical History: Reports:: Gastroesophageal Reflux Disease(GERD), Hyperlipidemia, Hypertension, Migraine Denies:: Cancer, Diabetes Mellitus Type 1, Diabetes Mellitus Type 2, Internal Pacemaker, MRSA, Seizures *Have you ever received a pneumonia vaccine?: No *Have you received a flu vaccine this season?: No Other Medical History: Reports: Hypothyroidism, Thyroid Disease. Denies: Blood Transfusion Reaction Other Surgeries: Yes: Colonoscopy, EGD, Hysterectomy-Partial, Skin Cancer Excision, Other. No: Pacemaker Amputation: No Fractures: No - *Social History Smoking Status: Former smoker Tobacco Type: cigarettes # Packs/Day (cigarettes): 1 Alcohol Intake: never Alcohol Intake Frequency:: other Substance Use Type: denies use *Occupational Status:: employed Housing: house Household Members: spouse, children *Travel in the last 8 weeks: None Family Hx:: Coronary Artery Disease, Hypertension, Diabetes
== END ==
PROVIDERS: PCP Physician Assistant; Visit Provider Clinical Nurse Specialist Family Health
DX: M50.10 Cervical disc disorder with radiculopathy, unspecified cervical region (principal); M96.1 Postlaminectomy syndrome, not elsewhere classified
CPT/HCPCS: 99212; G0463

== ENCOUNTER → 2021-02-21 14:00 | Outpatient (CLI) | payer MEDICAID, SELFPAY ==
--- NOTE | 2021-02-21 14:04 | XR_ITS ---
PROCEDURE: XR CHEST 2V CLINICAL HISTORY: elevated alk phos. Former smoker COMPARISON: CR CXR CHEST(2 VIEWS-NOT PORTABLE) from 12/16/2014 CR CXR2V XR chest 2V from 05/06/[address] chest wo con from 08/15/2018 FINDINGS: The cardiomediastinal silhouette and pulmonary vascularity are within normal limits. The lungs are clear without infiltrates, suspicious nodules, or pleural effusions. Bone plate is present along lower cervical spine. Degenerative changes are present in the thoracic spine. IMPRESSION: No acute findings. Dictated by: Nima Duggan MD 02/21/2021 15:03 Nima Duggan MD in [place] 02/21/2021 15:03
== END ==
PROVIDERS: PCP Nurse Practitioner Family; Visit Provider Nurse Practitioner Family
DX: R74.8 Abnormal levels of other serum enzymes (principal)
CPT/HCPCS: 71046

== ENCOUNTER → 2021-02-28 14:20 | Outpatient (CLI) | payer MEDICAID, SELFPAY ==
--- NOTE | 2021-02-28 14:20 | US_ITS ---
PROCEDURE: US THYROID CLINICAL INDICATION: hx hypothyroid COMPARISON: US US THYROID from 05/18/2020 FINDINGS: There is mild diffuse heterogeneity to the echogenicity of both thyroid lobes with no discrete cyst or nodule. Vascularity is not increased and there are a few tiny calcifications in the right inferior thyroid lobe. Thyroid isthmus region is normal. Right thyroid lobe measures 3.5 x 1.3 x 1.1 cm and the left thyroid lobe 2.7 x 1.8 x 1.2 cm. Findings may represent an atypical thyroiditis without discrete increased vascular flow. IMPRESSION: No discrete cyst or solid nodule in either thyroid lobe. Mild diffuse heterogeneity to the echogenicity of both thyroid lobes but with increased vascular flow. Findings may represent an atypical thyroiditis without discrete increased vascular flow. Dictated by: Edwin Stone 02/28/2021 16:02 Edwin Stone in OV 02/28/2021 16:02
== END ==
PROVIDERS: PCP Physician Assistant; Visit Provider Otolaryngology
DX: E03.9 Hypothyroidism, unspecified (principal)
CPT/HCPCS: 76536

== ENCOUNTER → 2021-03-14 10:31 | Outpatient (POV) | payer MEDICAID, SELFPAY ==
[2021-03-14 10:38] VITALS: BP 132/69; PULSE 63; RESP 18; O2SAT 97; BMI 40.5
--- NOTE | 2021-03-14 12:13 | HMH.PAINSOAP ---
[facility] Pain Management SOAP Note Subjective:: Patient is a 56-year-old white female who presents today for follow-up. The patient is being seen in the clinic for degenerative disc disease cervical spine with cervical radiculopathy symptoms as well as postlaminectomy syndrome cervical spine. Patient says that she did have a fusion with Dr. Morales approximately 6 months ago. Unfortunately patient's symptoms that she had prior to the procedure returned. She did return to Dr. Melendez's office and underwent imaging. The patient was informed that she has a nerve that has impingement. As result, she is scheduled to undergo revision of her previous surgery. She says this is scheduled on April 06. Patient says that she was changed to Lyrica ute Zepeda APRN. She says since changing the medication she has had some nausea and dry mouth. She would like to continue the medication, however, to see if her symptoms subside. If not she may need to go back to gabapentin. Patient says she only came in today to inform us of the update with Dr. Melendez and would like to follow-up with us following her surgery for her continued low back pain. She is also having weakness in heaviness in her left leg with numbness and tingling into her left leg. She does rate her pain a 7 out of 10 today. Review of Systems General: No recent weight changes, no fever, no sleep disturbances Respiratory: No cough, no shortness of air, no recurring pulmonary infections Cardiovascular/peripheral vascular: No chest pain, no palpitations, no edema, no shortness of breath Gastrointestinal: No new onset incontinence, normal bowel movements reported Genitourinary: No new onset incontinence Musculoskeletal: Neck pain, numbness and tingling bilateral upper extremities, low back pain, left leg numbness and tingling Psychiatric: Normal mood/affect Neurological: Weakness in bilateral upper and left lower extremity Objective:: Physical exam General: Alert and oriented x3, no acute distress, pleasant and cooperative, [on room air] Lungs: Respirations even and unlabored, symmetrical chest expansion Eyes: PERRL Musculoskeletal: Flexion and extension of [] cervical and lumbar spine somewhat guarded secondary to pain, deep tendon reflexes normal, strength in upper and lower extremities [5/5], [abnormal gait noted] Neurological: Speech clear, technical marketing consultant equal, no gross sensory deficit Assessment:: Degenerative disc disease cervical spine with cervical radiculopathy symptoms, postlaminectomy syndrome cervical spine, low back pain, lumbar radiculopathy Plan:: Patient will be undergoing a revision with Dr. Melendez on April 06. She would like treatment to her low back area, however, we did discuss that she will need to undergo 6 weeks of healing following her surgery before we can perform any injective therapy. She understands this and will follow up with us 6 weeks following her surgery. Patient has been instructed to contact the clinic with any concerns before the next appointment. Dr. Wallis has reviewed this note and agrees with this plan of care. This note was dictated using voice recognition software and make contain errors or omissions. [facility] History I have reviewed the patient's past medical history: Yes Medical History: Reports:: Gastroesophageal Reflux Disease(GERD), Hyperlipidemia, Hypertension, Migraine Denies:: Cancer, Diabetes Mellitus Type 1, Diabetes Mellitus Type 2, Internal Pacemaker, MRSA, Seizures *Have you ever received a pneumonia vaccine?: No *Have you received a flu vaccine this season?: Yes Other Medical History: Reports: Hypothyroidism, Thyroid Disease. Denies: Blood Transfusion Reaction Other Surgeries: Yes: Colonoscopy, EGD, Hysterectomy-Partial, Skin Cancer Excision, Other. No: Pacemaker Amputation: No Fractures: No - *Social History Smoking Status: Former smoker Tobacco Type: cigarettes # Packs/Day (cigarettes): 1 Alcohol Intake: never Alcohol Intake Frequency:: other Substa
== END ==
PROVIDERS: PCP Physician Assistant; Visit Provider Clinical Nurse Specialist Family Health
DX: M50.10 Cervical disc disorder with radiculopathy, unspecified cervical region (principal); M96.1 Postlaminectomy syndrome, not elsewhere classified; M54.5 Low back pain; M54.16 Radiculopathy, lumbar region
CPT/HCPCS: 99212; G0463

== ENCOUNTER → 2021-05-25 14:01 | Outpatient (CLI) | payer MEDICAID, SELFPAY ==
[2021-05-25 15:41] LABS: Free T4 (Free Thyroxine) 2.17 ng/dl (0.78-2.19)
[2021-05-25 15:56] LABS: Thyroid Stimulating Hormone 0.15 uIU/mL (0.465-4.68)
== END ==
PROVIDERS: Otolaryngology; Visit Provider Internal Medicine
DX: E03.9 Hypothyroidism, unspecified (principal)
CPT/HCPCS: 36415; 84439; 84443

== ENCOUNTER → 2021-06-16 09:33 | Outpatient (POV) | payer MEDICAID, SELFPAY ==
[2021-06-16 09:41] VITALS: BP 156/75; PULSE 73; RESP 18; O2SAT 98; BMI 39.8
--- NOTE | 2021-06-16 10:19 | HMH.PAINSOAP ---
[facility] Pain Management SOAP Note Subjective:: Patient is a 56-year-old white female who presents today for follow-up. The patient did undergo cervical fusion with Dr. Melendez April 06, 2021. She is continuing to get relief from the surgery. The patient is having pain in her low back at this time. She was seen in the clinic on 03/14/2021, however, we were not able to perform any injective therapies at that time for her low back due to scheduled surgery. She is back today to schedule injection for her low back. Patient says that she has pain with sitting for too long which causes her to have a throbbing sensation in her low back and into the right leg. Prolonged standing causes numbness into the right leg going to the foot. She says that she also feels as though her right leg is going to give out . She is now having to use a cane for ambulation due to concerns of falling with the numbness in the right leg. Patient has had multiple lumbar epidural steroid injections in the past for which she gets 70 to 80% relief for up to 2 weeks. The pain does return. The patient is managed with Lyrica 75 mg 1 tablet p.o. twice daily in our clinic. She denies any side effects to this medicine. She will need refill on the medicine. She would like to schedule an injection to her low back. She has tried and failed conservative therapies of physical therapy for more than 6 weeks along with continued home stretching and anti-inflammatories. Patient is very overwhelmed today. She is caring for her grandson as well as her mother who recently had a fall. She reports that her daughter is involved with the [employer] in [place] with multiple drug charges. She says that she would like to receive a mental health referral to discuss her concerns. She is currently on medication for depression and anxiety, however the medication is not working for her at this time. We will get the patient a psychological referral. Review of Systems General: No recent weight changes, no fever, no sleep disturbances Respiratory: No cough, no shortness of air, no recurring pulmonary infections Cardiovascular/peripheral vascular: No chest pain, no palpitations, no edema, no shortness of breath Gastrointestinal: No new onset incontinence, normal bowel movements reported Genitourinary: No new onset incontinence Musculoskeletal: Low back pain with radiation into right leg with numbness and tingling Psychiatric: Tearful, depressed Neurological: Weakness in right lower extremity Objective:: Physical exam General: Alert and oriented x3, cooperative, tearful Lungs: Respirations even and unlabored, symmetrical chest expansion Eyes: PERRL Musculoskeletal: Flexion and extension of lumbar [spine] somewhat guarded secondary to pain, strength in upper and lower extremities [5/5], [antalgic gait noted] Neurological: Speech clear, [managing editor equal], no gross sensory deficit Assessment:: Degenerative disc disease lumbar spine with lumbar radiculopathy symptoms Plan:: We will schedule the patient for lumbar epidural steroid injection at L4-L5 area. She has had injective therapy in the past and gets up to 70 to 80% relief for up to 2 weeks. She did undergo a cervical fusion with Dr. Melendez on April 06, 2021. Patient is not on any anticoagulation therapy. The pain is primarily in the low back area with radiation into the right lower extremity with heaviness and weakness as well as numbness and tingling. We will continue the patient on Lyrica 75 mg 1 tablet p.o. twice daily. We will also schedule the patient for psychological referral due to reports of depression and worsening symptoms with overwhelmed feeling. The patient denies any suicidal ideation or plans of self-harm today. Risks and benefits of the medication have been explained in detail to the patient. If side effects do present with the medication, she has been advised to stop the medication immediately and call the clinic. The patient has b
== END ==
PROVIDERS: Visit Provider Clinical Nurse Specialist Family Health
DX: M51.16 Intervertebral disc disorders with radiculopathy, lumbar region (principal)
CPT/HCPCS: 99212; G0463

== ENCOUNTER 2021-07-15 13:33 | Day surgery (SDC) | payer MEDICAID, SELFPAY ==
[2021-07-15 13:49] VITALS: BP 138/87; PULSE 85; RESP 18; TEMP 36.2; O2SAT 97; BMI 39.8
[2021-07-15 14:02] VITALS: BP 149/80; PULSE 81; RESP 18; O2SAT 95
[2021-07-15 14:03] VITALS: BP 149/80; PULSE 90; RESP 18; O2SAT 92
--- NOTE | 2021-07-15 14:19 | HMH.PMPROC ---
- Procedure Date: 07/15/21 Time: 14:19 Anesthesiologist:: Valentin Wallis MD Complications:: None Pre-procedure Diagnosis:: Degenerative disc disease of lumbar spine with lumbar radiculopathy symptoms Post-procedure Diagnosis:: Same Indications for Procedure:: This patient is a pleasant 56-year-old white female who we are treating for low back pain with lumbar radiculopathy symptoms. She has increasing pain in her back rating down her legs. We will do a lumbar pleural steroid injection today to see if this helps with her pain symptoms. Procedure Details:: Informed consent was obtained and the risk and benefits of the procedure was explained to the patient. The patient was taken to the procedure room. The patient was placed prone on the procedure table. The patient was prepped and draped in sterile fashion. C-arm fluoroscopy was used to view the lumbar spine. Skin and subcutaneous tissues were anesthetized using lidocaine. I placed an 18-gauge epidural needle and advanced into the L4-L5 interspace using fluoroscopic guidance and [id number] to air. After confirmation of needle placement in the epidural space with dye I injected 2 mL of lidocaine 1.5% with Depo-Medrol 80 mg. Patient tolerated the procedure well with no complications. Plan and Disposition:: We will follow-up with her in 2 weeks. Will reevaluate symptoms at that time.
[2021-07-15 14:22] VITALS: BP 122/71; PULSE 88; RESP 20; O2SAT 95
== END 2021-07-15 14:22 | disposition home or self-care (01) ==
LOC: SC.PAINP 13:34
PROVIDERS: PCP Physician Assistant; Visit Provider Anesthesiology
DX: M51.16 Intervertebral disc disorders with radiculopathy, lumbar region (principal); I10 Essential (primary) hypertension; E78.5 Hyperlipidemia, unspecified; E03.9 Hypothyroidism, unspecified; K21.9 Gastro-esophageal reflux disease without esophagitis; F41.9 Anxiety disorder, unspecified; F32.9 Major depressive disorder, single episode, unspecified; G43.909 Migraine, unspecified, not intractable, without status migrainosus
CPT/HCPCS: 62323; J1040; Q9966

== ENCOUNTER → 2021-08-01 10:46 | Outpatient (POV) | payer MEDICAID, SELFPAY ==
[2021-08-01 10:57] VITALS: BP 132/78; PULSE 57; RESP 18; O2SAT 99; BMI 39.1
--- NOTE | 2021-08-01 11:10 | HMH.PAINSOAP ---
[facility] Pain Management SOAP Note Subjective:: Patient is a 56-year-old white female who presents today for follow-up after lumbar epidural steroid injection. Patient has had per her report, more than 30 injections over the last 5 years. Most recently, she did undergo surgical intervention to her cervical spine with Dr. Melendez. She did get significant relief of her neck pain. She is not considered a neurosurgical candidate to her lumbar spine at this time. Patient does have pain in her low back with radiation into left leg stopping at the left ankle. She does have severe tingling sensation to the anterior aspect of bilateral feet. She does report having history of carpal tunnel with EMG studies with Dr. Henry in the past. She is requesting a neurology consult today for further assessment of possible neuropathy bilateral lower extremities. Patient says most shoes cause severe tingling and numbness into the anterior aspect of feet. She does rate her pain a 4 out of 10 today. She does get 1 week to a week and a half of relief with the injections, but pain does return. She gets about 60 to 70% relief with the injections. She has undergone physical therapy for more than 6 weeks and does continue with home stretching. The patient does take anti-inflammatories as needed as well. She has gotten minimal relief with conservative therapies. Patient had been scheduled for psychological evaluation in the past, but due to scheduled intervention to cervical spine with Dr. Melendez this was postponed. She is ready to proceed once again with psychological evaluation for possible spinal cord stimulation. The patient is on Lyrica 75 mg 1 tablet p.o. twice daily. Patient's Edwin #[id number] has been reviewed and is appropriate. Morphine equivalent is zero. She denies any side effects to the medication. Review of Systems General: No recent weight changes, no fever, no sleep disturbances Respiratory: No cough, no shortness of air, no recurring pulmonary infections Cardiovascular/peripheral vascular: No chest pain, no palpitations, no edema, no shortness of breath Gastrointestinal: No new onset incontinence, normal bowel movements reported Genitourinary: No new onset incontinence Musculoskeletal: Low back pain with radiation into left leg stopping at left ankle numbness and tingling anterior aspect bilateral feet Psychiatric: [Normal mood/affect] Neurological: Intermittent weakness left lower extremity Objective:: Physical exam General: Alert and oriented x3, no acute distress, pleasant and cooperative Lungs: Respirations even and unlabored, symmetrical chest expansion Eyes: PERRL Musculoskeletal: Flexion and extension of lumbar [spine] somewhat guarded secondary to pain, [antalgic gait noted] Neurological: Speech clear, no gross sensory deficit Assessment:: Degenerative disc disease lumbar spine with lumbar radiculopathy symptoms Plan:: Patient has gotten minimal relief with injections, physical therapy, home stretching and anti-inflammatories. We will schedule the patient for psychological evaluation to determine if she is an appropriate candidate for spinal cord stimulation. Patient has been instructed to contact the clinic with any concerns before the next appointment. Dr. Wallis has reviewed this note and agrees with this plan of care. This note was dictated using voice recognition software and make contain errors or omissions. [facility] History I have reviewed the patient's past medical history: Yes Medical History: Reports:: Diabetes Mellitus Type 2, Gastroesophageal Reflux Disease(GERD), Hyperlipidemia, Hypertension, Migraine Denies:: Cancer, Diabetes Mellitus Type 1, Internal Pacemaker, MRSA, Seizures *Have you ever received a pneumonia vaccine?: Yes *Have you received a flu vaccine this season?: Yes Other Medical History: Reports: Hypothyroidism, Thyroid Disease. Denies: Blood Transfusion Reaction Other Surgeries: Yes: Colonoscopy, EGD,
== END ==
PROVIDERS: Visit Provider Clinical Nurse Specialist Family Health
DX: M51.16 Intervertebral disc disorders with radiculopathy, lumbar region (principal)
CPT/HCPCS: 99212; G0463

== ENCOUNTER 2021-08-05 17:04 | Emergency (ER) | payer MEDICAID, SELFPAY ==
[2021-08-05 17:49] VITALS: BP 140/50; PULSE 68; RESP 19; TEMP 36.8; O2SAT 95; BMI 39.8
--- NOTE | 2021-08-05 18:16 | HMH.EDUTC ---
[facility] Disposition Clinical Impression: Pilonidal cyst Disposition: Home, Self-Care Condition on Discharge: Good Instructions: Pilonidal Cyst, DI for Pilonidal Cyst Drainage or Removal Additional Instructions: Drink plenty of fluids. Take tylenol or ibuprofen for pain or fever. Take the medications as directed. Do sitz bath 3 or 4 times per day to allow the area to soak in warm water. Put espom salts in the water. Follow up with your regular doctor. GO TO THE ER FOR ANY WORSENING SYMPTOMS Prescriptions: Ciprofloxacin HCl [Cipro 500mg Tab] 500 mg PO BID 10 Days #20 tab Transmission Status: Received by [facility] metroNIDAZOLE [metroNIDAZOLE 500mg Tablet] 500 mg PO TID 10 Days #30 tab Transmission Status: Received by [facility] Referrals: Leeann Robbins PA [Primary Care Provider] - Time of Disposition: 18:25 Medical Decision Making - Medical Records Medical records reviewed: No: I reviewed the patient's medical records. - Edwin Inquiry Pt receiving controlled substance: No Vital Signs: 08/05/21 17:49 08/05/21 18:28 Temperature 98.3 F 98.3 F Temperature Source Oral Oral Pulse Rate 68 Pulse Rate [Left Radial] 68 Respiratory Rate 19 19 Blood Pressure 140/50 L Blood Pressure [Right Arm] 140/50 L Blood Pressure Mean [Right Arm] 80 Blood Pressure Source [Right Arm] Automatic Cuff Blood Pressure Position [Right Arm] Sitting 02 Sat by Pulse Oximetry 95 Oxygen Delivery Method Room Air Room Air [facility] HPI - General Stated complaint: ;otle problem in back end Time Seen by Provider: 08/05/21 18:16 Mode of Arrival: Ambulatory Source of Information: Patient Limitations: No Limitations Description of Symptoms (Recalled from Triage Doc. by RN): pt to ed per pvt car. pt reports noticing a knot at the base of her lumbar region yesterday morning. pt states that today she woke up with a rash on her cocyx that is painful. HEENT Symptoms (Recalled from RN notes): No Resp Symptoms (Recalled from RN notes): No Skin Symptoms (Recalled from RN notes): Yes MS Symptoms (Recalled from RN notes): No Functional Status (Recalled from RN notes): na - History of Present Illness Provider Complaint: She states that for the past 3 days, she has had a sore area on her bottom just at the top of where her buttocks meet. She states the area is painful and tender to tough. She has never had something like this before. She denies any fever or chills. - Related Data Home Medications Medication Instructions Recorded Confirmed Cyclobenzaprine HCl [Flexeril 10mg 10 mg PO BID PRN 01/14/21 07/21/21 tablet] hydrocodone 5 mg-acetaminophen 325 1 tab PO Q8H PRN 05/05/21 07/21/21 mg tablet Amitriptyline HCl [Elavil 25mg 25 mg PO HS 07/15/21 07/21/21 tablet] Cariprazine HCl [Vraylar] 1.5 mg PO DAILY 07/15/21 07/21/21 Duloxetine HCl [Cymbalta] 60 mg PO DAILY 07/15/21 07/21/21 Ergocalciferol (Vitamin D2) See Rx Instructions .ROUTE .COMPLEX 07/15/21 07/21/21 [Drisdol] Pregabalin [Lyrica 75mg Cap] 75 mg PO BID 07/15/21 07/21/21 Previous Rx's Medication Instructions Recorded omeprazole 10 mg capsule,delayed See Rx Instructions .ROUTE 10/02/19 release .COMPLEX #90 cap levothyroxine 175 mcg tablet 175 mcg PO DAILY #90 tab 05/26/21 atorvastatin 10 mg tablet See Rx Instructions .ROUTE 08/03/21 .COMPLEX #90 tab lisinopril 10 See Rx Instructions .ROUTE 08/03/21 mg-hydrochlorothiazide 12.5 mg .COMPLEX #90 tab tablet oxybutynin chloride 10 mg See Rx Instructions .ROUTE 08/03/21 tablet,extended release 24 hr .COMPLEX #90 tab Ciprofloxacin HCl [Cipro 500mg 500 mg PO BID 10 Days #20 tab 08/05/21 Tab] metroNIDAZOLE [metroNIDAZOLE 500mg 500 mg PO TID 10 Days #30 tab 08/05/21 Tablet] Allergies Allergy/AdvReac Type Severity Reaction Status Date / Time No Known Allergies Allergy Verified 07/21/21 09:57 - Worker's Comp Is this a
[2021-08-05 18:28] VITALS: BP 140/50; PULSE 68; RESP 19; TEMP 36.8; O2SAT 95
== END 2021-08-05 18:29 | disposition home or self-care (01) ==
PROVIDERS: Emergency Provider Nurse Practitioner Family; PCP Physician Assistant
DX: L05.91 Pilonidal cyst without abscess (principal); E11.9 Type 2 diabetes mellitus without complications; K21.9 Gastro-esophageal reflux disease without esophagitis; E78.5 Hyperlipidemia, unspecified; I10 Essential (primary) hypertension; E03.9 Hypothyroidism, unspecified; Z87.891 Personal history of nicotine dependence; Z79.899 Other long term (current) drug therapy
CPT/HCPCS: 99202; G0463

== ENCOUNTER → 2021-08-27 08:32 | Outpatient (CLI) | payer MEDICAID, SELFPAY ==
[2021-08-27 09:11] LABS: Basophils # 0.1 K/mm3 (0-0.2); Basophils % 0.9 % (0.1-2.0); Eosinophils # 0.3 K/mm3 (0.0-0.4); Eosinophils % 3.8 % (0.1-12.0); Hemoglobin 15.2 g/dL (12.2-16.2); Lymphocytes # 2.2 K/mm3 (0.7-4.5); Lymphocytes % 31.7 % (10-50); Mean Corpuscular HGB Conc 32.3 g/dL (31.8-35.4); Mean Corpuscular Hemoglobin 29.5 pg (27.0-31.2); Mean Corpuscular Volume 91.5 fl (81-99); Mean Platelet Volume 7.2 fl (7.4-10.4); Monocytes # 0.4 K/mm3 (0.1-1.0); Monocytes % 6.2 % (1.7-9.3); Neutrophils % 57.4 % (37.0-80.0); Platelet Count 361 K/mm3 (142-424); Red Blood Count 5.14 M/mm3 (4.20-5.40); Red Cell Distribution Width 13.3 % (11.5-17.5); White Blood Count 6.9 K/mm3 (4.8-10.8)
[2021-08-27 09:52] LABS: Hemoglobin A1C 5.5 % (4.0-6.0)
[2021-08-27 10:36] LABS: Alanine Aminotransferase 18 U/L (12-78); Albumin Level 3.7 g/dl (3.5-5.0); Albumin/Globulin Ratio 1.4 (1.1-1.8); Alkaline Phosphatase 136 U/L (38-126); Anion Gap 6.6 mEq/L (5-15); Aspartate Amino Transferase 30 U/L (14-36); Bilirubin,Total 0.3 mg/dl (0.2-1.3); Blood Urea Nitrogen 14 mg/dl (7-17); Calcium 9.5 mg/dl (8.4-10.2); Carbon Dioxide 32 mmol/L (22.0-30.0); Chloride 102 mmol/L (98-107); Estimated Glomerular Filt Rate 87 ml/min (>60); GFR (African American) 105 ML/MIN (>60); Globulin 2.6 g/dL (1.3-3.2); Glucose 100 mg/dl (74-100); Potassium 4.6 mmoL/L (3.5-5.1); Sodium 136 mmol/L (136-145); Total Protein,Serum 6.3 g/dl (6.3-8.2)
[2021-08-27 11:08] LABS: Thyroid Stimulating Hormone 1.02 uIU/mL (0.465-4.68)
[2021-08-27 11:42] LABS: Vitamin B12 424 pg/mL (239-931)
[2021-08-27 11:46] LABS: Folate > 20.00 ng/mL
[2021-08-29 16:11] LABS: Albumin 3.3 g/dL (2.9-4.4); Alpha-1-Globulin 0.3 g/dL (0.0-0.4); Alpha-2-Globulin 0.9 g/dL (0.4-1.0); Gamma Globulin 0.7 g/dL (0.4-1.8); Protein, Total 6.1 g/dL (6.0-8.5)
== END ==
PROVIDERS: Visit Provider Nurse Practitioner Family
DX: E03.9 Hypothyroidism, unspecified (principal); M43.22 Fusion of spine, cervical region; M48.02 Spinal stenosis, cervical region; M54.5 Low back pain; M79.604 Pain in right leg; M79.605 Pain in left leg; R20.0 Anesthesia of skin; R20.2 Paresthesia of skin; R29.898 Other symptoms and signs involving the musculoskeletal system; R73.03 Prediabetes; Z68.41 Body mass index [BMI] 40.0-44.9, adult; Z98.84 Bariatric surgery status; Z98.890 Other specified postprocedural states
CPT/HCPCS: 36415; 80053; 82607; 82746; 83036; 84155; 84165; 84443; 85025; 86334

== ENCOUNTER → 2021-08-27 10:22 | Outpatient (CLI) | payer MEDICAID, SELFPAY ==
--- NOTE | 2021-08-27 10:22 | MR_ITS ---
PROCEDURE INFORMATION: Exam: MR Lumbar Spine Without and With Contrast Exam date and time: 08/27/2021 10:22 AM Age: 56 years old Clinical indication: Low back pain; Patient HX: Eval for stenosis with myelopathy TECHNIQUE: Imaging protocol: Multiplanar magnetic resonance images of the lumbar spine without and with intravenous contrast. Contrast material: PROHANCE; Contrast volume: 21 ml; Contrast route: IV; COMPARISON: PATIENT PORTAL REPRESENTATIVE/O MRI-L-SPINE W/O 04/19/2017 2:50 PM FINDINGS: L1-L2: No significant central or foraminal stenosis. L2-L3: Small left foraminal protrusion and mild bilateral facet joint arthropathy. No significant central canal stenosis. There is mild left foraminal stenosis. L3-L4: Mild disc bulge eccentric towards the left side with bilateral facet joint arthropathy, small left-sided facet joint effusion and posterior laxity of ligamentum flavum. There is borderline central canal stenosis and [id number] left foraminal stenosis. L4-L5: Disc bulge eccentric towards the right side with right greater than left facet joint arthropathy as well as posterior laxity of ligamentum flavum. There is moderate central canal stenosis, moderate to severe right foraminal stenosis and mild left foraminal stenosis. L5-S1: No significant central or foraminal stenosis. Examination is motion limited. Mild dextroconvex curvature. Vertebral body height and AP alignment is preserved. Multilevel disc desiccation and disc space narrowing. There is degenerative endplate signal. Negative for discitis/osteomyelitis. No epidural fluid collection. Conus medullaris terminates at L1. No pathologic intrathecal enhancement. IMPRESSION: Degenerative findings as above most prominently at L4-L5 where there is moderate central canal stenosis, moderate to severe right foraminal stenosis and mild left foraminal stenosis.
== END ==
PROVIDERS: PCP Physician Assistant; Visit Provider Nurse Practitioner Family
DX: M43.22 Fusion of spine, cervical region; M48.02 Spinal stenosis, cervical region; M79.604 Pain in right leg; M79.605 Pain in left leg; E03.9 Hypothyroidism, unspecified; R20.0 Anesthesia of skin; R20.2 Paresthesia of skin; R29.2 Abnormal reflex; R29.898 Other symptoms and signs involving the musculoskeletal system; R73.03 Prediabetes; Z68.41 Body mass index [BMI] 40.0-44.9, adult; Z98.84 Bariatric surgery status; Z98.890 Other specified postprocedural states; M54.50 Low back pain, unspecified
CPT/HCPCS: 72158; 76376; A9576

== ENCOUNTER → 2021-10-06 09:08 | Outpatient (CLI) | payer MEDICAID, SELFPAY ==
[2021-10-06 09:54] LABS: Basophils # 0.2 K/mm3 (0-0.2); Basophils % 2.6 % (0.1-2.0); Eosinophils # 0.3 K/mm3 (0.0-0.4); Eosinophils % 3.9 % (0.1-12.0); Hematocrit 46.3 % (37.0-47.0); Hemoglobin 14.9 g/dL (12.2-16.2); Lymphocytes # 2.2 K/mm3 (0.7-4.5); Lymphocytes % 29.2 % (10-50); Mean Corpuscular HGB Conc 32.3 g/dL (31.8-35.4); Mean Corpuscular Volume 96.1 fl (81-99); Monocytes # 0.5 K/mm3 (0.1-1.0); Monocytes % 6.4 % (1.7-9.3); Neutrophils # 4.4 K/mm3 (1.8-7.8); Neutrophils % 57.9 % (37.0-80.0); Platelet Count 360 K/mm3 (142-424); Red Blood Count 4.82 M/mm3 (4.20-5.40); Red Cell Distribution Width 13.6 % (11.5-17.5); White Blood Count 7.5 K/mm3 (4.8-10.8)
[2021-10-06 10:32] LABS: Anion Gap 8.1 mEq/L (5-15); Blood Urea Nitrogen 12 mg/dl (7-17); Calcium 9.4 mg/dl (8.4-10.2); Carbon Dioxide 33 mmol/L (22.0-30.0); Chloride 101 mmol/L (98-107); Estimated Glomerular Filt Rate 74 ml/min (>60); GFR (African American) 90 ML/MIN (>60); Glucose 85 mg/dl (74-100); Potassium 4.1 mmoL/L (3.5-5.1); Sodium 138 mmol/L (136-145)
== END ==
PROVIDERS: PCP Physician Assistant; Visit Provider Anesthesiology
DX: Z01.812 Encounter for preprocedural laboratory examination (principal); Z11.52 Encounter for screening for COVID-19; M51.36 Other intervertebral disc degeneration, lumbar region
CPT/HCPCS: 36415; 80048; 85025; C9803; U0003; U0005

== ENCOUNTER 2021-10-07 10:18 | Day surgery (SDC) | payer MEDICAID, SELFPAY ==
[2021-10-05 11:28] VITALS: BMI 39.8
[2021-10-07 10:40] VITALS: BP 125/65; PULSE 70; RESP 18; TEMP 36.5; O2SAT 99
--- NOTE | 2021-10-07 10:52 | HMH.ANESCL ---
[facility] Anesthesia Checklist - Patient Identification Patient Identification: Arm Band - Structural Data Admitted From: Home () Planned Operative Procedure/s: Spinal cord stimulator trial - NPO Status Verified Time NPO: 10:30 (Gum) - Additional verifications Anesthesia Reactions: No Hx Blood Transfusions: No Blood Transfusion Reaction: No - Airway Assessment C-Spine Mobility Assessed: Yes TMJ Mobility Assessed: Yes - Neurological Assessment Level of Consciousness: Awake Hx Seizures: No Numbness or tingling in extremities: Yes - Anesthesia Plan Anesthesia Risk discussed: Yes Anesthesia Plan: Verified ASA Class: II Anesthesia Type: MAC [facility] History I have reviewed the patient's past medical history: Yes Medical History: Reports:: Anxiety, Deep Vein Thrombosis, Depression, Gastroesophageal Reflux Disease(GERD), Hyperlipidemia, Hypertension, Migraine Denies:: Cancer, Diabetes Mellitus Type 1, Internal Pacemaker, MRSA, Seizures *Have you ever received a pneumonia vaccine?: Yes *Have you received a flu vaccine this season?: Yes Other Medical History: Reports: Hypothyroidism, Thyroid Disease. Denies: Blood Transfusion Reaction Anesthesia experience/problems:: None Other Surgeries: Yes: Bariatric Surgery, Colonoscopy, EGD, Hysterectomy-Partial, Skin Cancer Excision, Other. No: Pacemaker Amputation: No Fractures: No - *Social History Last grade of school completed: GED Smoking Status: Former smoker Tobacco Type: cigarettes # Packs/Day (cigarettes): 1 #Yrs smoked (if former smoker): 40 Smoking End Date: 2017 Alcohol Intake: never Alcohol Intake Frequency:: other Substance Use Type: denies use *Occupational Status:: unemployed Housing: house Household Members: spouse *Travel in the last 8 weeks: None - Psychiatric History Pschychiatric History:: Reports:: Anxiety, Depression Family Hx:: Coronary Artery Disease, Hypertension, Diabetes
[2021-10-07 12:25] VITALS: BP 98/63; PULSE 53; RESP 18; TEMP 36.3; O2SAT 94
[2021-10-07 12:40] VITALS: BP 111/77; PULSE 55; RESP 18; O2SAT 93
[2021-10-07 12:55] VITALS: BP 130/71; PULSE 55; RESP 18; O2SAT 100
[2021-10-07 13:13] VITALS: BP 152/82; PULSE 55; RESP 18; O2SAT 95
--- NOTE | 2021-10-07 14:13 | P.OP_ITS ---
Date of procedure: 10/07/21 Pre-op Diagnosis:: Degenerative disc disease of lumbar spine with lumbar radiculopathy symptoms Post-op Diagnosis:: Same Procedure performed:: Smoker stimulator trial with epidural lead placement x2 Surgeon:: Valentin Wallis MD SKATING RINK ICE MAKER:: Chris Hogan Anesthesia: MAC Estimated blood loss (mL): 1 Clinical Note:: Patient is a pleasant 56-year-old white female who we have been treating for low back pain with lumbar radiculopathy symptoms. Most of her pain is in the low back rating to the right hip and right leg above the knee. She has failed all previous conservative therapy including injections, oral medications, physical therapy and she is not a surgical candidate. She has had a successful psychological evaluation. She presents for spinal cord stimulator trial today. Operative findings:: None Operative note:: Informed consent was obtained the risk and benefits of the procedure were explained to the patient. Patient was taken the operating room she was draped in sterile fashion. C-arm fluoroscopy was used to view the lumbar spine. The skin and subtenons tissues adjacent to the L2-L3 L3-L4 interspace were anesthetized using lidocaine. I placed a 17-gauge epidural needle and advanced into the L2-L3 interspace. After confirmation needle placement in the epidural space stimulating lead was inserted and advanced very easily to the T7-T8-T9 vertebral body. A second needle was then inserted and advanced again into the L2-L3 interspace. Again after confirmation needle placement in the epidural space, a stimulating lead was inserted and advanced again very easily to the T7-T8-T9 vertebral body. Lead placement was checked in AP and lateral views. The leads were secured in place and the patient was taken recovery stable condition. Patient tolerated procedure well with no complications. Patient was programmed by the [employer] uniforms sales representative with good stimulation in all areas of pain. Patient was placed on a paresthesia free fast program and also was given a paresthesia program as well. Patient was discharged home neurologically intact with good relief of pain symptoms. Plan and disposition: Follow-up with this patient in 1 week for lead pull. We will continue to follow-up with her every day and make adjustments as needed. If she has any problems or questions she is to call us back in the pain clinic. Condition: stable Disposition: PACU Complications:: None
== END 2021-10-07 13:13 | disposition home or self-care (01) ==
LOC: OR 10:20
PROVIDERS: PCP Physician Assistant; Visit Provider Anesthesiology
PROC: (CPT 63685; principal; 2021-10-07 12:00)
DX: M51.16 Intervertebral disc disorders with radiculopathy, lumbar region (principal); I10 Essential (primary) hypertension; E78.5 Hyperlipidemia, unspecified; E11.9 Type 2 diabetes mellitus without complications; K21.9 Gastro-esophageal reflux disease without esophagitis; F41.9 Anxiety disorder, unspecified; G43.909 Migraine, unspecified, not intractable, without status migrainosus; E03.9 Hypothyroidism, unspecified; Z87.891 Personal history of nicotine dependence; Z86.718 Personal history of other venous thrombosis and embolism; Z79.899 Other long term (current) drug therapy
CPT/HCPCS: 63685; 63650 ×2; 96374; C1778; J3370

== ENCOUNTER → 2021-10-13 13:30 | Outpatient (POV) | payer MEDICAID, SELFPAY ==
[2021-10-13 13:37] VITALS: BP 156/62; PULSE 84; RESP 18; O2SAT 97; BMI 39.8
--- NOTE | 2021-10-13 14:40 | HMH.PMPROC ---
- Procedure Date: 10/13/21 Time: 14:40 Anesthesiologist:: Chica Yuan APRN Complications:: None Pre-procedure Diagnosis:: Degenerative disc disease lumbar spine with lumbar radiculopathy symptoms Post-procedure Diagnosis:: same Indications for Procedure:: Patient is a 56-year-old white female who presents today for follow-up after spinal cord stimulator trial. She is here today to have her leads removed. She is having significant pain in her low back area with radiation into bilateral lower extremities. She says her pain did go from a 7 or an 8 out of 10 to a 2 out of 10 during the trial. She would like to proceed with implant. She has tried physical therapy for more than 6 weeks, home stretching she and has tried oral medications. She has tried injective therapy as well. She is got minimal relief. The patient has had a psychological evaluation and was considered appropriate candidate. Procedure Details:: Procedure in detail: Informed consent was obtained. The risks and benefits of the procedure were explained to the patient. The patient was taken to the procedure room where noninvasive monitors were placed, including noninvasive blood pressure cuff and pulse oximeter. The area around the leads was examined and there were no signs or symptoms of infection. The skin was cleansed using chlorhexidine around the trial leads. Both leads were removed without incident. Leads were complete and intact. Dressing was placed. Patient tolerated the procedure well with no complications. Patient got 80% relief percent relief during the trial. We we will proceed with implant. Plan and Disposition:: We will move forward with implant of a [employer] spinal cord stimulator trial. We will see her back in the clinic afterwards for further evaluation. She is not on any anticoagulation therapy and is not diabetic. Risks and benefits of the procedure have been explained to the patient. Patient would like to proceed with the procedure. Patient has been instructed to contact the clinic with any concerns before the next appointment. Dr. Wallis has reviewed this note and agrees with this plan of care. This note was dictated using voice recognition software and make contain errors or omissions.
== END ==
PROVIDERS: Visit Provider Clinical Nurse Specialist Family Health
DX: M51.16 Intervertebral disc disorders with radiculopathy, lumbar region (principal)
CPT/HCPCS: 99212; G0463

== ENCOUNTER → 2021-10-31 15:43 | Outpatient (CLI) | payer MEDICAID, SELFPAY ==
[2021-10-31 16:45] LABS: Basophils # 0.1 K/mm3 (0-0.2); Basophils % 0.6 % (0.1-2.0); Eosinophils # 0.4 K/mm3 (0.0-0.4); Eosinophils % 3.2 % (0.1-12.0); Hematocrit 47.2 % (37.0-47.0); Hemoglobin 15.2 g/dL (12.2-16.2); Lymphocytes # 2.5 K/mm3 (0.7-4.5); Lymphocytes % 21.9 % (10-50); Mean Corpuscular HGB Conc 32.3 g/dL (31.8-35.4); Mean Corpuscular Hemoglobin 30.4 pg (27.0-31.2); Mean Corpuscular Volume 94.2 fl (81-99); Mean Platelet Volume 8.1 fl (7.4-10.4); Monocytes # 0.6 K/mm3 (0.1-1.0); Monocytes % 5.2 % (1.7-9.3); Neutrophils # 7.9 K/mm3 (1.8-7.8); Neutrophils % 69.1 % (37.0-80.0); Platelet Count 369 K/mm3 (142-424); Red Blood Count 5.01 M/mm3 (4.20-5.40); Red Cell Distribution Width 13.4 % (11.5-17.5); White Blood Count 11.4 K/mm3 (4.8-10.8)
[2021-10-31 16:58] LABS: Blood Urea Nitrogen 12 mg/dl (7-17); Estimated Glomerular Filt Rate 74 ml/min (>60); GFR (African American) 90 ML/MIN (>60)
[2021-10-31 16:59] LABS: Carbon Dioxide 31 mmol/L (22.0-30.0)
[2021-10-31 17:02] LABS: Anion Gap 6.9 mEq/L (5-15); Chloride 101 mmol/L (98-107); Potassium 3.9 mmoL/L (3.5-5.1); Sodium 135 mmol/L (136-145)
[2021-10-31 17:05] LABS: Calcium 8.5 mg/dl (8.4-10.2); Glucose 91 mg/dl (74-100)
== END ==
PROVIDERS: PCP Physician Assistant; Visit Provider Anesthesiology
DX: Z01.812 Encounter for preprocedural laboratory examination (principal); Z11.52 Encounter for screening for COVID-19; M51.36 Other intervertebral disc degeneration, lumbar region
CPT/HCPCS: 36415; 80048; 85025; C9803; U0003; U0005

== ENCOUNTER 2021-11-02 06:52 | Day surgery (SDC) | payer MEDICAID, SELFPAY ==
[2021-10-31 11:34] VITALS: BMI 41.6
[2021-11-02] VITALS (7 sets, daily range): BP systolic 104–137; BP diastolic 61–80; PULSE 54–81; RESP 18; TEMP 36.3; O2SAT 97–100
--- NOTE | 2021-11-02 07:16 | P.PN_ITS ---
[facility] Anesthesia Checklist - Patient Identification Patient Identification: Arm Band - Structural Data Admitted From: Home Planned Operative Procedure/s: Spinal cord stimulator implants Consent for Planned Operative Procedure(s) Verified: Yes - NPO Status Verified Time NPO: 00:00 - Additional verifications Anesthesia Reactions: No Hx Blood Transfusions: No Blood Transfusion Reaction: No - Airway Assessment C-Spine Mobility Assessed: Yes TMJ Mobility Assessed: Yes Dentition: Edentulous - Neurological Assessment Level of Consciousness: Awake Hx Seizures: No Numbness or tingling in extremities: No - Anesthesia Plan Anesthesia Risk discussed: Yes Anesthesia Plan: Verified ASA Class: III Anesthesia Type: MAC [facility] History I have reviewed the patient's past medical history: Yes Medical History: Reports:: Anxiety, Deep Vein Thrombosis, Depression, Gastroesophageal Reflux Disease(GERD), Hyperlipidemia, Hypertension, Migraine Denies:: Cancer, Diabetes Mellitus Type 1, Diabetes Mellitus Type 2, Internal Pacemaker, MRSA, Seizures *Have you ever received a pneumonia vaccine?: Yes *Have you received a flu vaccine this season?: Yes Other Medical History: Reports: Hypothyroidism, Thyroid Disease. Denies: Blood Transfusion Reaction Anesthesia experience/problems:: None Other Surgeries: Yes: Bariatric Surgery, Colonoscopy, EGD, Hysterectomy-Partial, Skin Cancer Excision, Other. No: Pacemaker Amputation: No Fractures: No - *Social History Last grade of school completed: GED Smoking Status: Former smoker Tobacco Type: cigarettes # Packs/Day (cigarettes): 1 #Yrs smoked (if former smoker): 40 Smoking End Date: 1 Alcohol Intake: never Alcohol Intake Frequency:: other Substance Use Type: denies use *Occupational Status:: unemployed Housing: house Household Members: spouse, family *Travel in the last 8 weeks: None - Psychiatric History Pschychiatric History:: Reports:: Anxiety, Depression Family Hx:: Heart Attack, Hyperlipidemia, Hypertension
--- NOTE | 2021-11-02 10:41 | P.OP_ITS ---
Date of procedure: 11/02/21 Pre-op Diagnosis:: Degenerative disc disease of lumbar spine with lumbar radiculopathy symptoms Post-op Diagnosis:: Same Procedure performed:: Spinal cord stimulator implant epidural leads x 2 and generator under fluoroscopy Surgeon:: Valentin Wallis MD LAND DEVELOPMENT MANAGER:: Ankur Ochoa Anesthesia: MAC Estimated blood loss (mL): 5 Clinical Note:: This patient is a pleasant 56-year-old white female who been treating for low back pain with lumbar radiculopathy symptoms. She has increasing pain in her back rating into the right hip and right leg. She has done very well with her spinal cord stimulator trial. She had a successful psychological evaluation. She has failed all previous conservative therapy. She presents for permanent placement of her spinal cord stimulator today. This will be epidural leads x2 and generator placement. Operative findings:: None Operative note:: Informed consent was obtained risk and benefits of the procedure were explained to the patient. Patient was taken to the operating room placed prone on the procedure table. She was prepped and draped in sterile fashion. C-arm fluoroscopy was used to view the lumbar spine. The skin and subcutaneous tissues adjacent to the L2-L3 and L3-L4 interspace were anesthetized using lidocaine. I made an incision and dissected down to the lumbar paraspinous fascia. A 17-gauge needle was inserted and advanced into the L2-L3 interspace until we confirm placement in the epidural space. After this spinal cord stimulator lead was inserted and advanced very easily to the T7-T8 vertebral body. We covered the entire T8 vertebral body and half of the T7 vertebral body. A second needle was inserted advanced again into the L2-L3 interspace. Again after confirmation of needle placement in the epidural space a second lead was inserted and advanced again to the T7-T8 vertebral body. We covered the en tire T8 vertebral body and half of the T7 vertebral body. Lead placement was checked in AP and lateral views. The needles and stylets were withdrawn. The leads were secured to the fascia with anchoring devices and 2-0 Prolene. The incision was irrigated with bacitracin solution. I then made the generator pocket on the right flank. The skin and subtenons tissues were anesthetized using lidocaine. I made an incision and dissected superiorly and inferiorly to create the generator pocket. We tunneled leads from the back to the generator pocket and attached the leads to the generator. Impedances were checked and found to be okay. Antibiotic solution was used to irrigate the pocket incision. Both incisions were then closed with 2-0 Vicryl followed by 4-0 nylon richard. A wound VAC was placed over both incisions. The patient was placed in an abdominal binder and taken recovery in stable condition. Patient tolerated the procedure well with no complications. The pump was interrogated by the [employer] primary care sales representative with good stimulation in all areas of pain. Patient was discharged home neurologically intact and with good relief of pain symptoms. She was also discharged home on antibiotics Bactrim DS twice a day for 5 days. Plan and disposition: We will follow-up with this patient in 1 week for wound check and reprogramming. We will follow-up in 2 weeks for staple and suture removal. If she has any problems or questions she is to call us back in the pain clinic. Condition: stable Disposition: PACU Complications:: None
== END 2021-11-02 12:12 | disposition home or self-care (01) ==
LOC: OR 06:53
PROVIDERS: PCP Physician Assistant; Visit Provider Anesthesiology
PROC: (CPT 63685; principal; 2021-11-02 08:30)
DX: M51.16 Intervertebral disc disorders with radiculopathy, lumbar region (principal); I10 Essential (primary) hypertension; E78.5 Hyperlipidemia, unspecified; K21.9 Gastro-esophageal reflux disease without esophagitis; E03.9 Hypothyroidism, unspecified; F41.9 Anxiety disorder, unspecified; I73.9 Peripheral vascular disease, unspecified; G43.909 Migraine, unspecified, not intractable, without status migrainosus; Z85.828 Personal history of other malignant neoplasm of skin; Z82.3 Family history of stroke; Z82.49 Family history of ischemic heart disease and other diseases of the circulatory system; Z83.438 Family history of other disorder of lipoprotein metabolism and other lipidemia
CPT/HCPCS: 63685; 63650 ×2; 96374; C1778; C1820; J2704; J3370

== ENCOUNTER → 2021-11-07 13:03 | Outpatient (POV) | payer MEDICAID, SELFPAY ==
[2021-11-07 13:15] VITALS: BP 147/79; PULSE 94; RESP 20; TEMP 36.5; O2SAT 96; BMI 41.6
--- NOTE | 2021-11-19 19:23 | P.CONS_ITS ---
[facility] Pain Management SOAP Note Subjective:: This patient is a very pleasant 56 yo white female who presents today for follow-up. She is currently being treated for degenerative disease of the lumbar spine with lumbar radiculopathy. She recently underwent spinal cord stimulation implantation and presents today for wound check evaluation. She is satisfied with the results of the procedure and notes approximately 60% pain relief at this time. She is very eager to have the Prevena dressing removed today. She rates the pain today as a 6 out of 10. Objective:: General: Alert and oriented x3, no acute distress, pleasant and cooperative Lungs: Resps E/U, symmetric chest expansion Eyes: PERRL Musculoskeletal: limited flexion and extension of the lumbar spine secondary to pain. Deep tendon reflexes were normal in bilateral lower extremities. Motor exam was grossly intact in the bilateral lower extremities, antalgic gait noted. Skin: Incision sites appear to be healing appropriately with very minimal erythema no drainage Neurological: Speech is clear, training and development director equal, no gross sensory deficits Assessment:: Degenerative disc disease of the lumbar spine with lumbar radiculopathy Plan:: I discussed with the patient that we will remove the Prevena dressing today. Her incision sites appear to be healing appropriately. We will follow-up with this patient in 1 week for reassessment and staple removal. Edwin and prior drug screens were reviewed and appropriate. [facility] History Medical History: Reports:: Anxiety, Deep Vein Thrombosis, Depression, Gastroesophageal Reflux Disease(GERD), Hyperlipidemia, Hypertension, Migraine Denies:: Cancer, Diabetes Mellitus Type 1, Diabetes Mellitus Type 2, Internal Pacemaker, MRSA, Seizures *Have you ever received a pneumonia vaccine?: Yes *Have you received a flu vaccine this season?: Yes Other Medical History: Reports: Hypothyroidism, Thyroid Disease. Denies: Blood Transfusion Reaction Other Surgeries: Yes: Bariatric Surgery, Colonoscopy, EGD, Hysterectomy-Partial, Skin Cancer Excision, Other. No: Pacemaker Amputation: No Fractures: No - *Social History Smoking Status: Former smoker Tobacco Type: cigarettes # Packs/Day (cigarettes): 1 #Yrs smoked (if former smoker): 40 Alcohol Intake: never Alcohol Intake Frequency:: other Substance Use Type: denies use *Occupational Status:: unemployed Housing: house Household Members: spouse, family *Travel in the last 8 weeks: None - Psychiatric History Pschychiatric History:: Reports:: Anxiety, Depression Family Hx:: Heart Attack, Hyperlipidemia, Hypertension
== END ==
PROVIDERS: PCP Physician Assistant; Visit Provider Anesthesiology Pain Medicine
DX: M51.16 Intervertebral disc disorders with radiculopathy, lumbar region (principal)
CPT/HCPCS: 99212; G0463

== ENCOUNTER → 2021-11-24 11:13 | Outpatient (POV) | payer MEDICAID, SELFPAY ==
[2021-11-24 11:41] VITALS: BP 132/87; PULSE 68; RESP 20; TEMP 36.7; O2SAT 98; BMI 42.5
--- NOTE | 2021-11-24 15:46 | HMH.PAINSOAP ---
[facility] Pain Management SOAP Note Subjective:: Patient is a pleasant 56-year-old female who presents today for a 3-week follow-up after a placement of a spinal cord stimulator. Patient is currently being treated for degenerative disc disease of the lumbar spine with lumbar radiculopathy symptoms. Patient reports significant relief after the procedure, reports 80 to 90% relief and rates her pain to be 3 out of 10. Patient reports no issues after the procedure. Patient denies any fever or increasing back pain. We will take out the patient sutures today. Patient is currently taking Lyrica 75 mg 2 times a day. [facility] #[id number] with an active morphine equivalent of 0. General: No recent weight changes, no fever, no sleep disturbances Respiratory: No cough, no shortness of air, no recurring pulmonary infections Cardiovascular/peripheral vascular: No chest pain, no palpitations, no edema, no shortness of breath Gastrointestinal: No new onset incontinence, normal bowel movements reported Genitourinary: No new onset incontinence Musculoskeletal: Low back pain Psychiatric: [Normal mood/affect] Neurological: [Denies weakness in extremities], [denies balance issues] Objective:: General: Alert and oriented x3, no acute distress, pleasant and cooperative, [on room air] Lungs: Respirations even and unlabored, symmetrical chest expansion Eyes: PERRL Musculoskeletal: Flexion and extension of lumbar [spine] somewhat guarded secondary to pain, [antalgic gait noted] Skin: Surgical incisions are healing well and well approximated. There is no drainage, erythema, and swelling Neurological: Speech clear, no gross sensory deficit Assessment:: Degenerative disc disease in the lumbar spine with lumbar radiculopathy symptoms Plan:: Patient is doing well after 3 weeks of placement of the [employer] spinal cord stimulator. She will be meeting with a [employer] sales representative jewelry tomorrow to help with some reprogramming. Her surgical incisions are healing well and well approximated. There is no drainage, swelling, and erythema. We remove her sutures today and placed Steri-Strips on top. Follow-up in a month Patient has been instructed to contact the clinic with any concerns before the next appointment. Dr. Wallis has reviewed this note and agrees with this plan of care. This note was dictated using voice recognition software and make contain errors or omissions. [facility] History Medical History: Reports:: Anxiety, Deep Vein Thrombosis, Depression, Gastroesophageal Reflux Disease(GERD), Hyperlipidemia, Hypertension, Migraine Denies:: Cancer, Diabetes Mellitus Type 1, Diabetes Mellitus Type 2, Internal Pacemaker, MRSA, Seizures *Have you ever received a pneumonia vaccine?: Yes *Have you received a flu vaccine this season?: Yes Other Medical History: Reports: Hypothyroidism, Thyroid Disease. Denies: Blood Transfusion Reaction Other Surgeries: Yes: Bariatric Surgery, Colonoscopy, EGD, Hysterectomy-Partial, Skin Cancer Excision, Other. No: Pacemaker Amputation: No Fractures: No - *Social History Smoking Status: Former smoker Tobacco Type: cigarettes # Packs/Day (cigarettes): 1 #Yrs smoked (if former smoker): 40 Alcohol Intake: never Alcohol Intake Frequency:: other Substance Use Type: denies use *Occupational Status:: unemployed Housing: house Household Members: spouse, family *Travel in the last 8 weeks: None - Psychiatric History Pschychiatric History:: Reports:: Anxiety, Depression Family Hx:: Heart Attack, Hyperlipidemia, Hypertension
== END ==
PROVIDERS: Visit Provider Student in an Organized Health Care Education/Training Program
DX: M51.16 Intervertebral disc disorders with radiculopathy, lumbar region (principal)
CPT/HCPCS: 99212; G0463

== ENCOUNTER → 2021-12-22 10:24 | Outpatient (POV) | payer MEDICAID, SELFPAY ==
[2021-12-22 10:30] VITALS: BP 134/63; PULSE 62; RESP 20; O2SAT 100; BMI 40.7
--- NOTE | 2021-12-22 11:46 | HMH.PAINSOAP ---
[facility] Pain Management SOAP Note Subjective:: Patient is a pleasant 56-year-old female who is here today for follow-up. Patient is currently being treated for degenerative disc disease of lumbar spine with lumbar radiculopathy symptoms. Patient has a [employer] spinal cord stimulator that was implanted about 6 to 7 weeks ago. Patient has been doing well with the stimulator. Patient feels like she needs a little bit of reprogramming because she is only feeling a lot of her relief on the right side and set of even on the left. She is also complaining of any tenderness around her spinal cord battery. She does report that she has been able to increase her activity since implantation. We are writing her Lyrica 75 mg twice a day. She reports no side effects with this medication. Her goal is to be off of this medication. She is meeting with Yessica tomorrow for some reprogramming. [facility] #[id number] with an active morphine equivalent of 0. Review of Systems: General: No recent weight changes, no fever, no sleep disturbances Respiratory: No cough, no shortness of air, no recurring pulmonary infections Cardiovascular/peripheral vascular: No chest pain, no palpitations, no edema, no shortness of breath Gastrointestinal: No new onset incontinence, normal bowel movements reported Genitourinary: No new onset incontinence Musculoskeletal: Low back pain Psychiatric: [Normal mood/affect] Neurological: [Denies weakness in extremities], [denies balance issues] Objective:: Physical Exam: General: Alert and oriented x3, no acute distress, pleasant and cooperative, [on room air] Lungs: Respirations even and unlabored, symmetrical chest expansion Eyes: PERRL Musculoskeletal: Flexion and extension of lumbar [spine] somewhat guarded secondary to pain, [antalgic gait noted] Neurological: Speech clear, no gross sensory deficit Assessment:: Degenerative disc disease of lumbar spine with lumbar radiculopathy symptoms Plan:: Patient presents today for a 7-week follow-up after implantation of her [employer] spinal cord stimulator. Her surgical incisions are healing well and well approximated. There is no drainage, erythema, and swelling. Patient states that she may need some reprogramming and she will be meeting with Yessica tomorrow. She is complaining of tenderness around her spinal cord stimulator battery. I will start her on some lidocaine patches to put on top of the battery to help with some of the tenderness. We will refill her Lyrica 75 mg twice a day for now. We will provide the patient with 1 month worth of refill. Once she get good programming, we will slowly taper the patient off of this medication. Follow-up in 2 weeks Patient has been instructed to contact the clinic with any concerns before the next appointment. Dr. Wallis has reviewed this note and agrees with this plan of care. This note was dictated using voice recognition software and make contain errors or omissions. [facility] History Medical History: Reports:: Anxiety, Deep Vein Thrombosis, Depression, Gastroesophageal Reflux Disease(GERD), Hyperlipidemia, Hypertension, Migraine Denies:: Cancer, Diabetes Mellitus Type 1, Diabetes Mellitus Type 2, Internal Pacemaker, MRSA, Seizures *Have you ever received a pneumonia vaccine?: Yes *Have you received a flu vaccine this season?: Yes Other Medical History: Reports: Hypothyroidism, Thyroid Disease. Denies: Blood Transfusion Reaction Other Surgeries: Yes: Bariatric Surgery, Colonoscopy, EGD, Hysterectomy-Partial, Skin Cancer Excision, Other. No: Pacemaker Amputation: No Fractures: No - *Social History Smoking Status: Former smoker Tobacco Type: cigarettes # Packs/Day (cigarettes): 1 #Yrs smoked (if former smoker): 40 Alcohol Intake: never Alcohol Intake Frequency:: other Substance Use Type: denies use *Occupational Status:: unemployed Housing: house Household Members: spouse, family *Travel in the last 8 weeks: None
== END ==
PROVIDERS: Visit Provider Student in an Organized Health Care Education/Training Program
DX: M51.16 Intervertebral disc disorders with radiculopathy, lumbar region (principal)
CPT/HCPCS: 99212; G0463

== ENCOUNTER → 2022-01-19 10:37 | Outpatient (POV) | payer MEDICAID, SELFPAY ==
[2022-01-19 10:47] VITALS: BP 121/56; PULSE 58; RESP 18; TEMP 36.3; O2SAT 100; BMI 40.7
--- NOTE | 2022-01-19 11:33 | HMH.PAINSOAP ---
[facility] Pain Management SOAP Note Subjective:: Patient is a pleasant 56-year-old female who presents today for follow-up. Patient is currently being treated for degenerative disc disease of lumbar spine with lumbar radiculopathy symptoms. Patient has a [employer] spinal cord stimulator that was implanted in October 2021. Patient has been doing well with the stimulator. When we last saw her, she was having numbness around her left thigh. She has seen Yessica for reprogramming. Since the reprogramming, patient has been doing well. I also started the patient with lidocaine patches that she can put on her battery whenever she has any tenderness around the incision site. She is also doing with the lidocaine patches. She is still taking her Lyrica 75 mg twice a day. She rates her pain today as 3 out of 10. [facility] [place] #[id number] with an active morphine equivalent of 0. Review of Systems: General: No recent weight changes, no fever, no sleep disturbances Respiratory: No cough, no shortness of air, no recurring pulmonary infections Cardiovascular/peripheral vascular: No chest pain, no palpitations, no edema, no shortness of breath Gastrointestinal: No new onset incontinence, normal bowel movements reported Genitourinary: No new onset incontinence Musculoskeletal: Low back pain Psychiatric: [Normal mood/affect] Neurological: [Denies weakness in extremities], [denies balance issues] Objective:: Physical Exam: General: Alert and oriented x3, no acute distress, pleasant and cooperative Lungs: Respirations even and unlabored, symmetrical chest expansion Eyes: PERRL Musculoskeletal: Flexion and extension of lumbar [spine] somewhat guarded secondary to pain, [antalgic gait noted] Skin: Surgical incisions are healing well and well approximated. There is no drainage, erythema, and swelling. Neurological: Speech clear, no gross sensory deficit Assessment:: Degenerative disc disease of lumbar spine with lumbar radiculopathy symptoms Plan:: Patient has been doing well with the [employer] stimulator. Since her reprogramming, patient's pain has been under control. We will refill her lidocaine patches today. We will follow-up with this patient in 3 months. Patient is welcome to call one of the [employer] representatives anytime for reprogramming. Patient has been instructed to contact the clinic with any concerns before the next appointment. Dr. Wallis has reviewed this note and agrees with this plan of care. This note was dictated using voice recognition software and make contain errors or omissions. [facility] History Medical History: Reports:: Anxiety, Deep Vein Thrombosis, Depression, Gastroesophageal Reflux Disease(GERD), Hyperlipidemia, Hypertension, Migraine Denies:: Cancer, Diabetes Mellitus Type 1, Diabetes Mellitus Type 2, Internal Pacemaker, MRSA, Seizures *Have you ever received a pneumonia vaccine?: Yes *Have you received a flu vaccine this season?: Yes Other Medical History: Reports: Hypothyroidism, Thyroid Disease. Denies: Blood Transfusion Reaction Other Surgeries: Yes: Bariatric Surgery, Colonoscopy, EGD, Hysterectomy-Partial, Skin Cancer Excision, Other. No: Pacemaker Amputation: No Fractures: No - *Social History Smoking Status: Former smoker Tobacco Type: cigarettes # Packs/Day (cigarettes): 1 #Yrs smoked (if former smoker): 40 Alcohol Intake: never Alcohol Intake Frequency:: other Substance Use Type: denies use *Occupational Status:: unemployed Housing: house Household Members: spouse, family *Travel in the last 8 weeks: None - Psychiatric History Pschychiatric History:: Reports:: Anxiety, Depression Family Hx:: Heart Attack, Hyperlipidemia, Hypertension
== END ==
PROVIDERS: Visit Provider Student in an Organized Health Care Education/Training Program
DX: M51.16 Intervertebral disc disorders with radiculopathy, lumbar region (principal)
CPT/HCPCS: 99212; G0463

== ENCOUNTER → 2022-01-31 16:07 | Outpatient (CLI) | payer MEDICAID, SELFPAY ==
[2022-01-31 14:02] LABS: Basophils # 0.1 K/mm3 (0-0.2); Basophils % 1.1 % (0.1-2.0); Eosinophils # 0.3 K/mm3 (0.0-0.4); Eosinophils % 4.2 % (0.1-12.0); Hematocrit 42.2 % (37.0-47.0); Hemoglobin 13.8 g/dL (12.2-16.2); Lymphocytes # 2.3 K/mm3 (0.7-4.5); Lymphocytes % 37.5 % (10-50); Mean Corpuscular HGB Conc 32.7 g/dL (31.8-35.4); Mean Corpuscular Hemoglobin 30.6 pg (27.0-31.2); Mean Corpuscular Volume 93.6 fl (81-99); Mean Platelet Volume 8.2 fl (7.4-10.4); Monocytes # 0.4 K/mm3 (0.1-1.0); Neutrophils # 3.1 K/mm3 (1.8-7.8); Neutrophils % 51.2 % (37.0-80.0); Platelet Count 321 K/mm3 (142-424); Red Blood Count 4.51 M/mm3 (4.20-5.40); Red Cell Distribution Width 13.7 % (11.5-17.5)
[2022-01-31 14:15] LABS: Alanine Aminotransferase 13 U/L (12-78); Albumin Level 3.5 g/dl (3.5-5.0); Albumin/Globulin Ratio 1.6 (1.1-1.8); Alkaline Phosphatase 123 U/L (38-126); Anion Gap 8.1 mEq/L (5-15); Aspartate Amino Transferase 28 U/L (14-36); Bilirubin,Total 0.2 mg/dl (0.2-1.3); Blood Urea Nitrogen 13 mg/dl (7-17); Calcium 8.7 mg/dl (8.4-10.2); Carbon Dioxide 29 mmol/L (22.0-30.0); Chloride 101 mmol/L (98-107); Chol/HDL Ratio 3.3 (1-3.5); Cholesterol 177 mg/dl (140-200); Estimated Glomerular Filt Rate 74 ml/min (>60); GFR (African American) 90 ML/MIN (>60); Globulin 2.2 g/dL (1.3-3.2); Glucose 87 mg/dl (74-100); HDL Cholesterol 54 mg/dl (40-60); Potassium 4.1 mmoL/L (3.5-5.1); Sodium 134 mmol/L (136-145); Total Protein,Serum 5.7 g/dl (6.3-8.2); Triglycerides 80 mg/dl (30-150); VLDL Cholesterol 16 mg/dL (0-40)
[2022-01-31 14:26] LABS: Direct LDL Cholesterol 91.89 mg/dL (100-129)
[2022-01-31 14:33] LABS: 25-OH Vitamin D, Total 37.5 ng/mL (30-100)
[2022-01-31 14:46] LABS: Thyroid Stimulating Hormone 0.48 uIU/mL (0.465-4.68)
[2022-01-31 15:05] LABS: Vitamin B12 376 pg/mL (239-931)
== END ==
PROVIDERS: PCP Physician Assistant; Visit Provider Physician Assistant
DX: R13.10 Dysphagia, unspecified (principal); E03.9 Hypothyroidism, unspecified; E78.5 Hyperlipidemia, unspecified; Z98.84 Bariatric surgery status; E66.01 Morbid (severe) obesity due to excess calories; Z68.42 Body mass index [BMI] 45.0-49.9, adult
CPT/HCPCS: 80053; 80061; 82306; 82607; 84443; 85025

== ENCOUNTER → 2022-02-07 11:11 | Outpatient (CLI) | payer MEDICAID, SELFPAY ==
[2022-02-07 12:41] LABS: Free T4 (Free Thyroxine) 1.13 ng/dl (0.78-2.19)
[2022-02-08 09:29] LABS: Thyroid Peroxidase Antibodies 266 IU/mL (0-34)
[2022-02-09 07:14] LABS: Thyroid Stimulating Immunoglob <0.10 IU/L (0.00-0.55)
== END ==
PROVIDERS: PCP Otolaryngology; Visit Provider Internal Medicine Gastroenterology
DX: E03.9 Hypothyroidism, unspecified (principal); Z01.812 Encounter for preprocedural laboratory examination; Z20.822 Contact with and (suspected) exposure to COVID-19; Z13.810 Encounter for screening for upper gastrointestinal disorder
CPT/HCPCS: 36415; 84439; 84443; 84445; 86376; C9803; U0003; U0005

== ENCOUNTER → 2022-02-08 13:21 | Outpatient (CLI) | payer MEDICAID, SELFPAY ==
--- NOTE | 2022-02-08 13:25 | US_ITS ---
FINAL REPORT TECHNIQUE: Sonographic images of the thyroid gland were obtained in the longitudinal and transverse planes. CLINICAL HISTORY: FU THYYROID COMPARISON: February 28, 2021 FINDINGS: The right lobe measures 3.5 x 1.6 x 1.1 cm. The left lobe measures 3.1 x 1.5 x 1.0 cm. The isthmus measures 3 mm which is normal. The gland is small and heterogeneous. There is a small calcification in the lower pole of the right lobe which is unchanged. No discrete nodule is identified in the left lobe. The surrounding soft tissues are normal. Color imaging of the gland is within normal limits. IMPRESSION: Small heterogeneous thyroid, favor thyroiditis. Findings are similar to prior. Reviewed, Interpreted and Dictated by Laurita Joaquin MD Transcribed by Delores Moon Authenticated by Laurita Joaquin MD on 02/08/2022 04:54:44 PM [facility]
== END ==
PROVIDERS: PCP Physician Assistant; Visit Provider Otolaryngology
DX: E03.9 Hypothyroidism, unspecified (principal)
CPT/HCPCS: 76536

== ENCOUNTER 2022-02-09 08:49 | Day surgery (SDC) | payer MEDICAID, SELFPAY ==
[2022-02-09] VITALS (7 sets, daily range): BP systolic 94–129; BP diastolic 57–72; PULSE 52–64; RESP 16–18; TEMP 36.3–36.7; O2SAT 91–99; BMI 44.2
--- NOTE | 2022-02-09 09:32 | P.PN_ITS ---
[facility] Anesthesia Checklist - Patient Identification Patient Identification: Arm Band - Structural Data Admitted From: Home Planned Operative Procedure/s: egd Consent for Planned Operative Procedure(s) Verified: Yes Verified Documents: Surgical Consent, History and Physical - NPO Status Verified Time NPO: 00:00 - Additional verifications Anesthesia Reactions: No Hx Blood Transfusions: No Blood Transfusion Reaction: No - Airway Assessment C-Spine Mobility Assessed: Yes (mp2) TMJ Mobility Assessed: Yes Dentition: Edentulous - Neurological Assessment Level of Consciousness: Awake, Alert - Anesthesia Plan Anesthesia Risk discussed: Yes Anesthesia Plan: Verified ASA Class: III Anesthesia Type: MAC [facility] History I have reviewed the patient's past medical history: Yes Medical History: Reports:: Anxiety, Deep Vein Thrombosis, Depression, Gastroesophageal Reflux Disease(GERD), Hyperlipidemia, Hypertension, Migraine Denies:: Cancer, Diabetes Mellitus Type 1, Diabetes Mellitus Type 2, Internal Pacemaker, MRSA, Seizures *Have you ever received a pneumonia vaccine?: Yes *Have you received a flu vaccine this season?: Yes Other Medical History: Reports: Hypothyroidism, Thyroid Disease. Denies: Blood Transfusion Reaction Anesthesia experience/problems:: nac Other Surgeries: Yes: Bariatric Surgery, Colonoscopy, EGD, Hysterectomy-Partial, Skin Cancer Excision, Other. No: Pacemaker Amputation: No Fractures: No - *Social History Last grade of school completed: GED Smoking Status: Former smoker Tobacco Type: cigarettes # Packs/Day (cigarettes): 1 #Yrs smoked (if former smoker): 40 Alcohol Intake: never Alcohol Intake Frequency:: other Substance Use Type: denies use *Occupational Status:: disabled Housing: house Household Members: spouse *Travel in the last 8 weeks: None - Psychiatric History Pschychiatric History:: Reports:: Anxiety, Depression Family Hx:: Cancer, Diabetes, Heart Attack
--- NOTE | 2022-02-09 09:50 | HMH.SCOPE ---
- Procedure: Date: 02/09/22 Patient Date of :: 1965 Procedure Performed:: EGD & bougie dilation Indications:: GERD and Dysphagia Performing Provider:: Denita Cervantes MD Referring Provider:: Raymond Duarte MD Sedation:: Propofol Procedure:: The gastroscope was gently passed through the incisoral orifice into the oral cavity and under direct visualization the esophagus was intubated. The endoscope was passed down the esophagus, through the stomach, and into the duodenum. Color, texture, mucosa, and anatomy of the esophagus, stomach, and duodenum were carefully examined with the scope. Findings:: Oropharynx: normal Esophagus: normal, no stricture noted. Dysphagia treated with several passes of a 58F bougie dilator. EG Junction: intact at 40 cm Cardia: normal Fundus: normal Body: Post gastric banding/sleeve anatomy Antrum: normal Duodenal bulb: normal Duodenum (second and third portion): normal Impression: Normal post gastric sleeve anatomy Symptomatic dysphagia treated with bougie dilation Recommendations:: Repeat dilation in about THREE years or so as clinically indicated. Smaller meal portions will decrease GERD symptoms. Complications:: None Estimated blood obtained (mL): 0
== END 2022-02-09 10:30 | disposition home or self-care (01) ==
LOC: OUTP 08:50
PROVIDERS: PCP Physician Assistant; Referring Provider Otolaryngology; Visit Provider Internal Medicine Gastroenterology
PROC: 0DJ08ZZ Inspection of Upper Intestinal Tract, Via Natural or Artificial Opening Endoscopic (ICD-10-PCS; CPT 43235; principal; 2022-02-09 10:00)
DX: R13.10 Dysphagia, unspecified (principal); Z98.84 Bariatric surgery status; F41.9 Anxiety disorder, unspecified; F32.A Depression, unspecified; K21.9 Gastro-esophageal reflux disease without esophagitis; E78.5 Hyperlipidemia, unspecified; I10 Essential (primary) hypertension; G43.909 Migraine, unspecified, not intractable, without status migrainosus; E03.9 Hypothyroidism, unspecified; Z86.718 Personal history of other venous thrombosis and embolism; Z87.891 Personal history of nicotine dependence; Z80.9 Family history of malignant neoplasm, unspecified
CPT/HCPCS: 43248

== ENCOUNTER 2022-03-06 10:55 | Emergency (ER) | payer MEDICAID, SELFPAY ==
[2022-03-06 11:10] VITALS: BP 101/47; PULSE 78; RESP 18; TEMP 37.1; O2SAT 98; BMI 40.3
[2022-03-06 11:25] VITALS: BP 101/47; PULSE 78; RESP 18; TEMP 37.1; O2SAT 98
--- NOTE | 2022-03-06 11:27 | HMH.EDUTC ---
[facility] Disposition Clinical Impression: Exposure to COVID-19 virus Disposition: Home, Self-Care Condition on Discharge: Good Instructions: DI for COVID-19 (Suspected or Confirmed ), Preventing the Spread of Coronavirus Discharge Instructions Additional Instructions: *Monitor Temp, Over the counter Motrin or Tylenol as directed/as needed Tylenol every 4 hours and Motrin every 6 hours (as long as your family doctor has told you that you can take it) for fever or pain. and straight to ER if unable to lower temp less than 101.0 after medication given Follow up IMMEDIATELY for new or worsening symptoms or no Noticeable improvement over the next 48-72 hours. 911 for difficulty breathing or swallowing You were tested for today for COVID19 your test result should be back in the next 24-48 hours, you may check your results on the [facility] My Health Portal Make sure to take your Vitamins Vit. C Vit D and Zinc if you can take them Referrals: Leeann Robbins PA [Primary Care Provider] - As needed Forms: Work/School Release Medical Decision Making - Edwin Inquiry Pt receiving controlled substance: No Edwin was queried for this patient: No Vital Signs: 03/06/22 11:10 03/06/22 11:25 Temperature 98.7 F 98.7 F Temperature Source Oral Pulse Rate 78 Pulse Rate [Left Brachial] 78 Respiratory Rate 18 18 Blood Pressure 101/47 L Blood Pressure [Left Arm] 101/47 L Blood Pressure Mean [Left Arm] 65 Blood Pressure Source [Left Arm] Automatic Cuff Blood Pressure Position [Left Arm] Sitting 02 Sat by Pulse Oximetry 98 Oxygen Delivery Method Room Air Orders (Tests/Meds): ORDERS Category Date Time Status Covid-19 Nasal PCR ([facility]) Routine Lab 03/06/22 11:10 Received [facility] HPI - General Stated complaint: covid test Time Seen by Provider: 03/06/22 11:27 Mode of Arrival: Ambulatory Source of Information: Patient Limitations: No Limitations Description of Symptoms (Recalled from Triage Doc. by RN): COVID TEST D/T EXPOSURE, DENIES SYMPTOMS HEENT Symptoms (Recalled from RN notes): No Resp Symptoms (Recalled from RN notes): No Skin Symptoms (Recalled from RN notes): No MS Symptoms (Recalled from RN notes): No Functional Status (Recalled from RN notes): WNL - History of Present Illness Provider Complaint: Patient states that she was recently around her sister that has since tested positive for COVID States that she hasnt had any symptoms but wanted to get tested due to exposure - Related Data Home Medications Medication Instructions Recorded Confirmed Omeprazole 20 mg PO BID 10/07/21 02/27/22 Amitriptyline HCl [Elavil 25mg See Rx Instructions .ROUTE .COMPLEX 01/19/22 02/27/22 tablet] Atorvastatin Calcium [Lipitor 10mg See Rx Instructions .ROUTE .COMPLEX 01/19/22 02/27/22 Tab] Ergocalciferol (Vitamin D2) See Rx Instructions .ROUTE .COMPLEX 01/19/22 02/27/22 [Drisdol] Lisinopril/Hydrochlorothiazide See Rx Instructions .ROUTE .COMPLEX 01/19/22 02/27/22 [Lisinopril-Hctz 10-12.5 mg Tab] Oxybutynin Chloride [Oxybutynin See Rx Instructions .ROUTE .COMPLEX 01/19/22 02/27/22 Chloride ER] cariprazine 3 mg capsule 3 mg PO DAILY cap 01/31/22 02/27/22 Levothyroxine Sodium [Synthroid See Rx Instructions .ROUTE .COMPLEX 02/09/22 02/27/22 175mcg (0.175mg) tablet] Pregabalin [Lyrica 75mg Cap] 75 mg PO BID 02/09/22 02/27/22 Semaglutide [Rybelsus] 3 mg PO DAILY 02/09/22 02/27/22 Previous Rx's Medication Instructions Recorded Lidocaine [Lidocaine 5% patch] 1 patch TP DAILY #30 patch 01/19/22 duloxetine 60 mg capsule,delayed 60 mg PO DAILY #30 cap 01/30/22 release levothyroxine 200 mcg capsule 200 mcg PO DAILY #30 cap 02/27/22 Allergies Allergy/AdvReac Type Severity Reaction Status Date / Time adhesive tape Allergy Verified 02/27/22 13:07 - Worker's Comp Is this a Worker's Comp case?: No H History - Hepatitis A Screen Attestation statement:: This patient has bee
== END 2022-03-06 11:33 | disposition home or self-care (01) ==
PROVIDERS: Emergency Provider Nurse Practitioner; PCP Physician Assistant
DX: M54.50 Low back pain, unspecified (principal); E88.81 Metabolic syndrome and other insulin resistance; Z20.822 Contact with and (suspected) exposure to COVID-19; I10 Essential (primary) hypertension; K21.9 Gastro-esophageal reflux disease without esophagitis; E78.5 Hyperlipidemia, unspecified; E11.9 Type 2 diabetes mellitus without complications; E03.9 Hypothyroidism, unspecified; R32 Unspecified urinary incontinence; E55.9 Vitamin D deficiency, unspecified; G43.909 Migraine, unspecified, not intractable, without status migrainosus; F32.A Depression, unspecified; Z91.048 Other nonmedicinal substance allergy status; Z03.89 Encounter for observation for other suspected diseases and conditions ruled out; Z95.0 Presence of cardiac pacemaker; Z98.1 Arthrodesis status; Z87.891 Personal history of nicotine dependence; Z82.49 Family history of ischemic heart disease and other diseases of the circulatory system; Z83.3 Family history of diabetes mellitus; Z80.9 Family history of malignant neoplasm, unspecified
CPT/HCPCS: 99213; C9803; G0463; U0003; U0005

== ENCOUNTER → 2022-04-20 08:28 | Outpatient (POV) | payer MEDICAID, SELFPAY ==
[2022-04-20 08:46] VITALS: BP 131/77; PULSE 90; RESP 20; O2SAT 97; BMI 42.5
--- NOTE | 2022-04-20 09:13 | HMH.PAINSOAP ---
[facility] Pain Management SOAP Note Subjective:: Patient is a pleasant 57-year-old female who is here for medication refill and follow-up. Patient is currently being treated for degenerative disc disease of lumbar spine with lumbar radiculopathy symptoms. Patient has a [employer] spinal cord stimulator that was implanted in October 2021. Patient has been doing well with the stimulator. She is also prescribed Lyrica 75 mg twice a day. Patient denies any side effects from the medications. Patient denies any changes to the location and type of pain. Patient states that this is adequately helping manage their pain. Rates pain as 4 out of 10. [facility] number [id number] with an active morphine equivalent 0. Drug screens have been reviewed and appropriate. Review of Systems: General: No recent weight changes, no fever, no sleep disturbances Respiratory: No cough, no shortness of air, no recurring pulmonary infections Cardiovascular/peripheral vascular: No chest pain, no palpitations, no edema, no shortness of breath Gastrointestinal: No new onset incontinence, normal bowel movements reported Genitourinary: No new onset incontinence Musculoskeletal: Low back pain Psychiatric: [Normal mood/affect] Neurological: [Denies weakness in extremities], [denies balance issues] Objective:: Physical Exam: General: Alert and oriented x3, no acute distress, pleasant and cooperative Lungs: Respirations even and unlabored, symmetrical chest expansion Eyes: PERRL Musculoskeletal: Flexion and extension of lumbar [spine] somewhat guarded secondary to pain, [antalgic gait noted] Neurological: Speech clear, no gross sensory deficit Assessment:: Degenerative disc disease of lumbar spine with lumbar radiculopathy symptoms Plan:: We will continue the patient's Lyrica 75 mg twice a day. We will provide the patient with 3 months of refills. We would like to see the patient back in 3 months for follow-up and reevaluation of chronic pain syndrome. I also reached out to Yessica to check up on the patient's stim just in case she has any questions. I also prescribed the patient lidocaine patches in the past to help with her surgical incision pain. She does not need refills on this. Patient has been advised of risks of oversedation with the prescribed medication. Narcan has been offered to the patient in the event of oversedation. Patient has been advised that a family member should also be educated regarding administration of Narcan. Patient has been instructed to contact the clinic with any concerns before the next appointment. Dr. Wallis has reviewed this note and agrees with this plan of care. This note was dictated using voice recognition software and make contain errors or omissions. [facility] History Medical History: Reports:: Anxiety, Deep Vein Thrombosis, Depression, Gastroesophageal Reflux Disease(GERD), Hyperlipidemia, Hypertension, Migraine Denies:: Cancer, Diabetes Mellitus Type 1, Diabetes Mellitus Type 2, Internal Pacemaker, MRSA, Seizures *Have you ever received a pneumonia vaccine?: Yes *Have you received a flu vaccine this season?: Yes Other Medical History: Reports: Hypothyroidism, Thyroid Disease. Denies: Blood Transfusion Reaction Other Surgeries: Yes: Bariatric Surgery, Colonoscopy, EGD, Hysterectomy-Partial, Skin Cancer Excision, Other. No: Pacemaker Amputation: No Fractures: No - *Social History Smoking Status: Former smoker Tobacco Type: cigarettes # Packs/Day (cigarettes): 1 #Yrs smoked (if former smoker): 40 Alcohol Intake: never Alcohol Intake Frequency:: other Substance Use Type: denies use *Occupational Status:: other Housing: house Household Members: spouse *Travel in the last 8 weeks: None - Psychiatric History Pschychiatric History:: Reports:: Anxiety, Depression Family Hx:: Cancer, Diabetes, Heart Attack
[2022-04-20 09:44] LABS: Amphetamine/Metha Screen,Urine Negative ng/ml (<1000)
[2022-04-20 09:45] LABS: Barbiturates Screen,Urine Negative ng/ml (<200)
[2022-04-20 09:46] LABS: Benzodiazepines Screen,Urine Negative ng/ml (<200); Cannabinoid Screen,Urine Positive ng/ml (<50)
[2022-04-20 09:47] LABS: Cocaine Screen,Urine Negative ng/ml (<300)
[2022-04-20 09:48] LABS: Methadone Screen,Urine Negative ng/ml (<300); Opiate Screen,Urine Negative ng/ml (<300)
[2022-04-20 09:49] LABS: Phencyclidine Screen,Urine Negative ng/ml (<25)
[2022-04-26 13:17] LABS: Cannabinoid Negative (Cutoff=10); Opiates Negative (Cutoff=100)
== END ==
PROVIDERS: Student in an Organized Health Care Education/Training Program; PCP Physician Assistant; Visit Provider Nurse Practitioner Family
DX: M51.16 Intervertebral disc disorders with radiculopathy, lumbar region (principal)
CPT/HCPCS: 80305; 80349; 80361; 80365; 99212; G0463; G0480

== ENCOUNTER → 2022-05-25 16:44 | Outpatient (CLI) | payer MEDICAID, SELFPAY ==
[2022-05-25 18:23] LABS: Basophils # 0.1 K/mm3 (0-0.2); Basophils % 1.6 % (0.1-2.0); Eosinophils # 0.3 K/mm3 (0.0-0.4); Hematocrit 43.7 % (37.0-47.0); Hemoglobin 14.2 g/dL (12.2-16.2); Lymphocytes # 2.7 K/mm3 (0.7-4.5); Lymphocytes % 31.7 % (10-50); Mean Corpuscular HGB Conc 32.6 g/dL (31.8-35.4); Mean Corpuscular Hemoglobin 29.8 pg (27.0-31.2); Mean Corpuscular Volume 91.6 fl (81-99); Mean Platelet Volume 8.2 fl (7.4-10.4); Monocytes # 0.5 K/mm3 (0.1-1.0); Monocytes % 5.9 % (1.7-9.3); Neutrophils # 4.9 K/mm3 (1.8-7.8); Neutrophils % 56.8 % (37.0-80.0); Platelet Count 354 K/mm3 (142-424); Red Blood Count 4.77 M/mm3 (4.20-5.40); Red Cell Distribution Width 13.5 % (11.5-17.5); White Blood Count 8.6 K/mm3 (4.8-10.8)
[2022-05-25 19:25] LABS: Alanine Aminotransferase 9 U/L (12-78); Albumin Level 3.6 g/dl (3.5-5.0); Albumin/Globulin Ratio 1.5 (1.1-1.8); Alkaline Phosphatase 148 U/L (38-126); Anion Gap 10.2 mEq/L (5-15); Aspartate Amino Transferase 17 U/L (14-36); Blood Urea Nitrogen 10 mg/dl (7-17); Calcium 8.9 mg/dl (8.4-10.2); Carbon Dioxide 26 mmol/L (22.0-30.0); Chloride 101 mmol/L (98-107); Chol/HDL Ratio 3.3 (1-3.5); Cholesterol 185 mg/dl (140-200); Estimated Glomerular Filt Rate 87 ml/min (>60); GFR (African American) 105 ML/MIN (>60); Globulin 2.4 g/dL (1.3-3.2); Glucose 66 mg/dl (74-100); HDL Cholesterol 56 mg/dl (40-60); Potassium 4.2 mmoL/L (3.5-5.1); Sodium 133 mmol/L (136-145); Triglycerides 85 mg/dl (30-150); VLDL Cholesterol 17 mg/dL (0-40)
[2022-05-25 19:44] LABS: 25-OH Vitamin D, Total 44.9 ng/mL (30-100)
[2022-05-25 19:46] LABS: Bilirubin,Total < 0.1 mg/dl (0.2-1.3)
[2022-05-25 19:56] LABS: Thyroid Stimulating Hormone 0.03 uIU/mL (0.465-4.68)
[2022-05-25 20:15] LABS: Vitamin B12 473 pg/mL (239-931)
[2022-05-25 20:33] LABS: Iron 45 ug/dL (37-170)
[2022-05-25 20:43] LABS: Total Iron Binding Capacity 248 ug/dL (265-497)
[2022-05-25 21:15] LABS: Ferritin 217 ng/ml (11.1-264)
[2022-05-26 13:17] LABS: Direct LDL Cholesterol 106.72 mg/dL (100-129)
== END ==
PROVIDERS: PCP Physician Assistant; Visit Provider Physician Assistant
DX: I49.8 Other specified cardiac arrhythmias (principal); R00.2 Palpitations; I10 Essential (primary) hypertension; E66.9 Obesity, unspecified; Z68.41 Body mass index [BMI] 40.0-44.9, adult
CPT/HCPCS: 80053; 80061; 82306; 82607; 82728; 83540; 83550; 84443; 85025; 93225; 93226

== ENCOUNTER → 2022-06-05 09:25 | Outpatient (CLI) | payer MEDICAID, SELFPAY ==
--- NOTE | 2022-06-05 09:25 | XR_ITS ---
FINAL REPORT TECHNIQUE: Bone densitometry calculations of the lumbar spine and left hip were obtained. CLINICAL HISTORY: . post menopausal FINDINGS: DEXA BONE DENSITY AXIAL SKELETON Using L1-4, the bone mineral density of the spine is 1.531 g/cm2, corresponding to T-score of 4.4. Using the left hip, the bone mineral density of the femoral neck is 1.275 g/cm2, corresponding to a T-score of 2.7. Using the right hip, the bone mineral density of the femoral neck is 1.187 g/cm2, corresponding to a T-score of 3.0. NOTE: T-score: Standard deviation compared with peak bone mass of young adult mean. *Following the recommendations of the International Society of Bone Densitometry, classification of hip BMD is based on the lower of two T-scores; total hip or femoral neck. IMPRESSION: Normal bone mineral density of the lumbar spine and hips. Reviewed, Interpreted and Dictated by Rudy Wilson MD Transcribed by Delores Moon Authenticated and [facility]
== END ==
PROVIDERS: PCP Physician Assistant; Visit Provider Physician Assistant
DX: R74.8 Abnormal levels of other serum enzymes (principal)
CPT/HCPCS: 77080

== ENCOUNTER 2022-06-13 10:05 | Emergency (ER) | payer MEDICAID, SELFPAY ==
[2022-06-13 10:20] VITALS: BP 113/66; PULSE 70; RESP 20; TEMP 36.9; O2SAT 98; BMI 43.9
--- NOTE | 2022-06-13 10:24 | XR_ITS ---
FINAL REPORT TECHNIQUE: 1 view CLINICAL HISTORY: NO BM X 2 WEEKS FINDINGS: Examination shows moderate diffuse fecal impaction. No abnormal densities are seen. No obvious free air is seen. A thoracic spine stimulator is noted with leads in the lower thoracic spinal canal. IMPRESSION: Moderate diffuse fecal impaction. Reviewed, Interpreted and Dictated by Sam Reyna MD Transcribed by Delores Moon Authenticated and [facility]
--- NOTE | 2022-06-13 12:20 | EXP.UTC ---
Discharge Plan Disposition Patient Disposition: Home, Self-Care Condition: Good Prescriptions Prescriptions: New magnesium citrate [Citroma] Solution 150 ml PO DAILY PRN (Reason: constipation) Qty: 296 0RF Rx Instructions: 1/2 bottle now and discard remaining medication in bottle polyethylene glycol 3350 [Miralax] 17 gram powder in packet 17 g PO DAILY PRN (Reason: constipation) Qty: 30 0RF glycerin (adult) Suppository 1 supp IN DAILY PRN (Reason: constipation) Qty: 12 0RF No Action varenicline [Chantix Starting Month Box] 0.5 mg (11)- 1 mg (42) tablets,dose pack See Rx Instructions PO PER PKG DIR 28 Days Qty: 53 0RF Rx Instructions: PO PER PKG DIR Vraylar 3 mg capsule 3 mg PO DAILY Qty: 30 1RF duloxetine 60 mg capsule,delayed release(DR/EC) 60 mg PO DAILY Qty: 30 1RF buspirone 10 mg tablet 10 mg PO BID Qty: 60 1RF atorvastatin 10 mg tablet See Rx Instructions .Route .COMPLEX Qty: 90 3RF Rx Instructions: TAKE ONE TABLET BY MOUTH ONCE A DAY FOR CHOLESTEROL lisinopril-hydrochlorothiazide 10-12.5 mg tablet See Rx Instructions .Route .COMPLEX Qty: 90 3RF Rx Instructions: TAKE ONE TABLET BY MOUTH ONCE A DAY FOR BLOOD PRESSURE amitriptyline 25 mg tablet See Rx Instructions .ROUTE .COMPLEX Qty: 30 2RF Dose Instruction: TAKE ONE TABLET BY MOUTH AT BEDTIME Rx Instructions: TAKE ONE TABLET BY MOUTH AT BEDTIME oxybutynin chloride 10 mg tablet extended release 24hr See Rx Instructions .ROUTE .COMPLEX Qty: 30 2RF Dose Instruction: TAKE ONE TABLET BY MOUTH ONCE A DAY FOR BLADDER Rx Instructions: TAKE ONE TABLET BY MOUTH ONCE A DAY FOR BLADDER omeprazole 20 mg capsule,delayed release(DR/EC) See Rx Instructions .ROUTE .COMPLEX Qty: 30 2RF Dose Instruction: TAKE ONE CAPSULE BY MOUTH 2 TIMES A DAY Rx Instructions: TAKE ONE CAPSULE BY MOUTH 2 TIMES A DAY ergocalciferol (vitamin D2) 1,250 mcg (50,000 unit) capsule See Rx Instructions .ROUTE .COMPLEX Qty: 4 2RF Dose Instruction: TAKE ONE CAPSULE BY MOUTH EVERY WEEK Rx Instructions: TAKE ONE CAPSULE BY MOUTH EVERY WEEK Slow Fe 142 mg (45 mg iron) tablet extended release 142 mg PO DAILY Qty: 90 3RF semaglutide 3 mg tablet 3 mg PO DAILY Qty: 30 0RF Rx Instructions: Take 3 mg daily for 1 month, then start 7 mg daily semaglutide 7 mg tablet 7 mg PO DAILY Qty: 30 2RF lidocaine 0.05 MG/MG adhesive patch,medicated 1 patch TP DAILY Qty: 30 2RF levothyroxine 200 MCG capsule 200 mcg PO DAILY pregabalin 75 MG capsule 75 mg PO BID Qty: 60 2RF Referrals Follow up/Referrals: Leeann Robbins PA [Primary Care Provider] - See instructions Activity Restrictions/Add. Instructions Additional Instructions/Restrictions: Make sure that you are drinking plenty of fluids Make sure that you are eating plenty fiber in your Diet like fruits may help prevent constipation Follow up with Physician that did your gastric sleeve surgery Take medicaiton as directed Follow up with your Family Doctor Straight to ER if any abdominal pain, worsening of symptoms or Vomiting Clinical Impressions Clinical Impression: Constipation Instructions Patient Instructions: Constipation (Alternative Therapy), Constipation, DI for Constipation Discharge ED Provider: Zoya Troncoso [facility] General Stated complaint: Unable to have BM Mode of Arrival: Ambulatory Source of Information: Patient Limitations: No Limitations Time Seen by Provider: 06/13/22 10:20 Description of Symptoms (Recalled from Triage Doc. by RN): PATIENT STATES SHE HAS NOT HAD A BOWEL MOVEMENT IN 2 WEEKS. C/O BLOATING, ABDOMINAL PAIN, AND NAUSEA AFTER EATING. DENIES VOMITING. SHE STATES SHE HAS ATTEMPTED MIRALAX AND FLEETS ENEMAS. REPORTS A HISTORY OF GASTRIC SLEEVE HEENT Symptoms (Recalled from RN notes): No Resp Symptoms (Recalled from RN notes): No
[2022-06-13 12:36] VITALS: BP 113/66; PULSE 70; RESP 20; TEMP 36.9; O2SAT 98
== END 2022-06-13 12:39 | disposition home or self-care (01) ==
PROVIDERS: Emergency Provider Nurse Practitioner; PCP Physician Assistant
DX: K59.00 Constipation, unspecified (principal)
CPT/HCPCS: 74018; 99212; G0463

== ENCOUNTER → 2022-06-22 06:33 | Outpatient (CLI) | payer MEDICAID, SELFPAY ==
--- NOTE | 2022-06-22 06:34 | CA_ITS ---
APPROVED REPORT Exam: Pharmacologic Technologist: YESSICA STEWART, Ht: 5 ft 3 in Wt: 235 lbs BSA: 2.07 m2 HR: 66 bpm BP: 109/61 mmHg Rhythm: NSR,LOW VOLTAGE QRS Indications: CP, SOA, FLUTTERING Medical History Medical History: HTN, Hyperlipidemia, Diabetic ??? Insulin Medications: Lisinopril,,,,, Omeprazole,,,,, Levothyroxine,,,,, Ferrous sulfate,,,,, INSULIN,,,,, DulOXETINE,,,,, Pregabalin,,,,, AtorvaASTATIN,,,,, Vit D2,,,,, Cariprazine,,,,, SeMaglutide,,,,, AmiTRIPTLine,,,,, Allergies: ADHESIVE TAPE Cardiac Risk Factors: HTN, Hyperlipidemia, Diabetes (insulin), Smoking Stress Test Details Test: LEXISCAN HR Resting HR: 62 bpm Max Heart Rate (APMHR): 164.538106 bpm Max HR Achieved: 85 bpm Target HR (85% APMHR): 139.589344 bpm % of APMHR: 51.83 Recovery HR: 70 bpm BP Resting BP: 109.0/61.0 mmHg Max BP: 121.0/70.0 mmHg Recovery BP: 121.0/70.0 mmHg ECG Resting ECG: NSR,LOW VOLTAGE QRS Clinical Exercise duration: 06:18 min Highest Stage Achieved: Exercise capacity: 1.0 METs Stress ECG Conclusion DURING INFUSION PATIENT HAD BRIEF SOA AND LEG DISCOMFORT. NO CHEST PAIN. NO ARRHYTHMIAS/ECTOPY. NO SIGNIFICANT ST-T CHANGES. UNREMARKABLE LEXISCAN STRESS. MYOVIEW IMAGES REPORTED SEPARATELY. Test Summary REST . . . . . . . Resting Sitting REST 04:38 . . 62 . 109/ 61 . . Stage 1 01:00 . . 74 . . . . Stage 2 01:00 . . 79 . 102/ 61 . . Stage 3 01:00 . . 77 . 115/ 65 . . Stage 4 01:00 . . 75 . 104/ 68 . . Stage 4 02:00 . . 82 . 104/ 68 . . Stage 4 03:00 . . 72 . 121/ 70 . . Stage 4 03:18 . . 70 . 121/ 70 . Stop exercise at 06:18 RECOVERY 01:00 . . 68 . . . . RECOVERY 01:19 . . 69 . 115/ 68 . . Electronically signed by : Marc Long MD 06/23/2022 13:00:55
--- NOTE | 2022-06-22 06:34 | CA_ITS ---
APPROVED REPORT EXAM: Comprehensive 2D, Doppler, and color-flow Echocardiogram Organic Preparation Technician: Shell Rosa RDCS Ht: 5 ft 3 in Wt: 243lbs BSA: 2.10 BP: 109/65 mmHg Indications: CP,SOA,S/P GASTRIC BANDING 2D Dimensions LVOT 1.84 cm (M/F) 1.5-2.5 M-Mode Dimensions RVDd 1.85 cm (0.9-2.6) LA Diam 3.46 cm (1.9-4.0) LVDd 4.95 cm (3.5-5.7) Ao Diam 2.56 cm (2.0-3.7) LVDs 2.61 cm (3.5-5.7) IVSd 0.76 cm (0.6-1.1) PWd 0.83 cm (0.6-1.1) EF (Teich) 78.50% FS 47.30% EDV (Teich) 115.50 mL ESV (Teich) 24.80 mL LV Diastology E Decel Time 197.00 (160-240 msec) E/A Ratio 1.0 MED E' 8.60 (< 7 cm/sec) E'/MED E' Ratio 6.83 (>14) LAT E' 10.40 (<10 cm/sec) E/LAT E' Ratio 5.64 (>14) Mitral Valve MV E Max Anson. 59.00 (40-130 cm/s) MV A Velocity 62.00 (40-130 cm/s) E/A Ratio 0.95 MV Decel. Time 197.00 (160-240 ms) MV PHT 58.00 ms Left Ventricle Left atrium is mildly enlarged, left ventricle is normal size, estimated ejection fraction 55% with no regional wall motion abnormality, diastolic parameters are inconclusive. Right atrium and right ventricle are normal size and contractility. Aortic Valve Aortic valve is thickened and calcified without aortic stenosis aortic insufficiency. Mitral Valve Mitral valve grossly normal, there is no mitral stenosis, there is no significant mitral regurgitation. Tricuspid Valve Tricuspid grossly normal, there is no significant tricuspid regurgitation. Pulmonic Valve Pulmonic valve is poorly visualized. Great Vessels Aortic root is normal size. Inferior vena cava is normal size with normal inspiratory collapse. Pericardium No significant pericardial effusion noted. Conclusion 1. Mildly enlarged atrium, normal left ventricular size, estimated ejection fraction 55% with no regional wall motion abnormality, diastolic parameters are inconclusive. 2. No significant pericardial effusion. 3. Inferior vena cava normal size with normal inspiratory collapse. Electronically signed by : Marc Long MD 06/23/2022 15:03:13
--- NOTE | 2022-06-22 06:34 | NM_ITS ---
APPROVED REPORT Exam: Nuclear Stress Test Indication: chest pain..short of breath..fatigue Patient Location: Outpatient Stress Tech: Judith Salmeron [place] Tech:MIKE Matute RT(R)(N) Ht: 5 ft 3 in Wt: 235 lbs Bra Size: 42d HR: 62 bpm BP: 109/61 mmHg BSA: 2.07 m2 TID: 1.44 BMI: 41.6 History: chest pain..short of breath..fatigue Procedure: Patient received a 0.4 mg of intravenous Lexiscan, resting heart rate 62 bpm, resting blood pressure 109/61 mmHg, with Lexiscan maximum heart rate achived was 85 bpm which is Less than 85 % of the maximum predicted heart rate and blood pressure was 121/70 mmHg. With Lexiscan, patient denied any complaint of chest pain. Electrocardiogram Resting electrocardiogram showed sinus rhythm, with Lexiscan there is less than 1.[address] segment depression noted from the baseline EKG. The EKG portion of the Lexiscan is nondiagnostic. Cardiac Stress and Resting SPECT Images: Cardiac Stress and Resting SPECT images were obtained using technetium 99m Myoview 30.5 mCi stress and 10.39 mCi at rest. Gated SPECT for analysis of segmental wall motion and calculation of the ejection fraction also done. Prone images were also obtained. Cardiac stress and rest SPECT images show uniform myocardial activity without segmental perfusion abnormality, computer derived ejection fraction is 61% with no regional wall motion abnormality, right ventricle is normal size and contractility. There is transient ischemic dilatation of the left ventricle seen, with ratio of 1.44 Conclusion: 1. The EKG portion of the Lexiscan is nondiagnostic. 2. No scintigraphic evidence of reversible ischemia seen, compared to ejection fraction is 61% with no regional wall motion abnormality, right ventricle is normal size and contractility. However there is transient ischemic dilatation of the left ventricle seen with ratio of 1.44. 3. Abnormal Lexiscan Myoview study due to transient ischemic dilatation of the left ventricle. Electronically signed by : Marc Long MD 06/23/2022 13:04:48
== END ==
PROVIDERS: PCP Physician Assistant; Visit Provider Nurse Practitioner
DX: R06.09 Other forms of dyspnea (principal); R07.89 Other chest pain; R00.2 Palpitations; I49.1 Atrial premature depolarization; I49.8 Other specified cardiac arrhythmias; Z72.0 Tobacco use; Z82.49 Family history of ischemic heart disease and other diseases of the circulatory system
CPT/HCPCS: 78452; 93017; 93306; A9502; J2785

== ENCOUNTER → 2022-06-28 07:39 | Outpatient (CLI) | payer MEDICAID, SELFPAY ==
--- NOTE | 2022-06-28 07:39 | CT_ITS ---
FINAL REPORT CLINICAL HISTORY: lung cancer screening. smoker, 1 ppd x 40 years cad, no family hx of lung cancer COMPARISON: July 2018 FINDINGS: Low-Dose Chest CT CTDI vol (mGy): 2.90 DLP (mGy-cm): 106.55 Axial images were obtained from the lung apex to the mid abdomen by computed tomography. Low-dose protocol was utilized. FINDINGS: CHEST: There is no axillary adenopathy. There is no hilar or mediastinal adenopathy. The heart is proper size. There is no pericardial or pleural effusion. Limited images of the upper abdomen demonstrate changes from gastric sleeve. Gallstones are present. Lung window images demonstrate a 6 mm pleural base nodule in the posterior right upper lobe that previously measured 5 mm. Uncertain if this is true interval growth or imaging variation. A stable 5 mm nodule is seen in the lateral right upper lobe. There is a stable 2 mm nodule in the left lower lobe on image 28. There is no new mass or pulmonary nodule. IMPRESSION: Lung RADS category 3. Recommend 6 month follow-up low-dose chest CT. Reviewed, Interpreted and Dictated by Rodolfo Ojeda III, MD Transcribed by Giovany Cleary Authenticated and [facility]
== END ==
PROVIDERS: PCP Physician Assistant; Visit Provider Physician Assistant
DX: Z87.891 Personal history of nicotine dependence (principal); Z12.2 Encounter for screening for malignant neoplasm of respiratory organs
CPT/HCPCS: 71271

== ENCOUNTER → 2022-07-04 09:46 | Outpatient (CLI) | payer MEDICAID, SELFPAY ==
[2022-07-04 10:06] LABS: Basophils # 0.1 K/mm3 (0-0.2); Basophils % 1.5 % (0.1-2.0); Eosinophils # 0.4 K/mm3 (0.0-0.4); Eosinophils % 5.3 % (0.1-12.0); Hematocrit 47.2 % (37.0-47.0); Hemoglobin 15.2 g/dL (12.2-16.2); Lymphocytes # 2.1 K/mm3 (0.7-4.5); Lymphocytes % 27.8 % (10-50); Mean Corpuscular HGB Conc 32.2 g/dL (31.8-35.4); Mean Corpuscular Hemoglobin 29.6 pg (27.0-31.2); Mean Corpuscular Volume 91.8 fl (81-99); Mean Platelet Volume 7.9 fl (7.4-10.4); Monocytes # 0.4 K/mm3 (0.1-1.0); Monocytes % 5.2 % (1.7-9.3); Neutrophils # 4.6 K/mm3 (1.8-7.8); Neutrophils % 60.2 % (37.0-80.0); Platelet Count 403 K/mm3 (142-424); Red Blood Count 5.14 M/mm3 (4.20-5.40); Red Cell Distribution Width 13.1 % (11.5-17.5); White Blood Count 7.6 K/mm3 (4.8-10.8)
[2022-07-04 10:46] LABS: Blood Urea Nitrogen 9 mg/dl (7-17); Calcium 8.9 mg/dl (8.4-10.2); Carbon Dioxide 30 mmol/L (22.0-30.0); Chloride 97 mmol/L (98-107); Estimated Glomerular Filt Rate 74 ml/min (>60); GFR (African American) 90 ML/MIN (>60); Glucose 93 mg/dl (74-100); Sodium 136 mmol/L (136-145)
== END ==
PROVIDERS: PCP Physician Assistant; Visit Provider Physician Assistant
DX: I20.8 Other forms of angina pectoris (principal); R94.30 Abnormal result of cardiovascular function study, unspecified; Z72.0 Tobacco use; Z82.49 Family history of ischemic heart disease and other diseases of the circulatory system
CPT/HCPCS: 36415; 80048; 85025

== ENCOUNTER 2022-07-05 08:48 | Day surgery (SDC) | payer MEDICAID, SELFPAY ==
[2022-07-05] VITALS (11 sets, daily range): BP systolic 88–136; BP diastolic 52–79; PULSE 48–71; RESP 16–20; O2SAT 90–97; BMI 97.2; BMI 44.1
--- NOTE | 2022-07-05 | IR_ITS ---
APPROVED REPORT Patient Location: Outpatient PROCEDURES Left heart catheterization Left ventriculogram Selective coronary angiogram INDICATION Atypical angina pectoris, Risk factors for coronary disease Informed consent was obtained prior to the procedure. COMPLICATIONS None Estimated Blood Loss: Less than 10 mls TECHNIQUE One percent lidocaine used to anesthetize the right anterior aspect of the wrist. The right radial artery was accessed via the Seldinger technique. A 6 Nepali sheath was placed in the right radial artery. 2.5 mg of verapamil, 800 mcg of nitroglycerin, 1mg Lidocaine and 5000 U Heparin were given through the arterial sheath. The papa catheter was also used to perform left heart catheterization, left ventriculogram and selective coronary angiogram. At the end of the procedure the sheath was removed good hemostasis was achieved using Traclet band, patient was transferred to the postop holding area in stable condition. ANGIOGRAPHIC RESULTS The left main artery Normal The left anterior descending artery Has proximal and mid vessel luminal irregularities there is a mid myocardial bridge which compresses to 30 to 40% with systole The circumflex artery Nondiagnostic with mild 10% luminal irregularities The right coronary artery Dominant with diffuse 10% luminal irregularities The DAS ventriculogram reveals Hyperdynamic 75% The left ventricular end-diastolic pressure 20 to 25 mm IMPRESSION Mild nonflow limiting coronary disease with a mild to moderate mid myocardial bridge which is clinically insignificant Hyperdynamic ventricle with diastolic dysfunction PLAN 1. Standard therapy for risk factor modification for coronary disease 2. Treatment of diastolic dysfunction 3. Weight loss 4. Sleep study recommended Electronically signed by : Srinivas Bartlett MD 07/05/2022 13:01:28
== END 2022-07-05 15:52 | disposition home or self-care (01) ==
PROVIDERS: PCP Physician Assistant; Visit Provider Internal Medicine
DX: I25.118 Atherosclerotic heart disease of native coronary artery with other forms of angina pectoris (principal); R94.39 Abnormal result of other cardiovascular function study; I10 Essential (primary) hypertension; E03.9 Hypothyroidism, unspecified; F17.210 Nicotine dependence, cigarettes, uncomplicated; E78.5 Hyperlipidemia, unspecified; Z82.49 Family history of ischemic heart disease and other diseases of the circulatory system
CPT/HCPCS: 93458; 99152; C1725; C1769; J1644; Q9967

== ENCOUNTER → 2022-07-20 08:40 | Outpatient (POV) | payer MEDICAID, SELFPAY ==
[2022-07-20 08:53] VITALS: BP 115/69; PULSE 66; RESP 18; TEMP 36.6; O2SAT 98; BMI 42.8
--- NOTE | 2022-07-20 09:30 | EXP.PAIN.SOA ---
[facility] Pain Management SOAP Note Subjective:: Patient is a pleasant 57-year-old female who presents today for follow-up. We are currently treating the patient for degenerative disc disease of lumbar spine with lumbar radiculopathy symptoms. Today the patient rates her pain a 1 out of 10. Patient states she has done extremely well the last 2 months. She states it was at that point 2 months ago that she was last reprogrammed by [employer] representatives. She states this program provided significant improvement of her symptoms. Patient was implanted in October 2021 with this device. Patient does do lidocaine patches as needed. She is prescribed pregabalin 75 mg twice a day. Patient denies any side effects from this medication. She states this medication does adequately help manage her pain symptoms. She is requesting refill at today's visit. Her Edwin is [id number]. It has been reviewed and appropriate. Review of Systems: General: No recent weight changes, no fever, no sleep disturbances Respiratory: No cough, no shortness of air, no recurring pulmonary infections Cardiovascular/peripheral vascular: No chest pain, no palpitations, no edema, no shortness of breath Gastrointestinal: No new onset incontinence, normal bowel movements reported Genitourinary: No new onset incontinence Musculoskeletal: Low back pain Psychiatric: [Normal mood/affect] Neurological: [Denies weakness in extremities], [denies balance issues] Objective:: Physical Exam: General: Alert and oriented x3, no acute distress, pleasant and cooperative Lungs: Respirations even and unlabored, symmetrical chest expansion Eyes: PERRL Musculoskeletal: Flexion and extension of lumbar [spine] somewhat guarded secondary to pain, [antalgic gait noted] Neurological: Speech clear, no gross sensory deficit Assessment:: Degenerative disc disease of lumbar spine with lumbar radiculopathy symptoms Plan:: Patient has had significant improvement of her symptoms following her spinal cord stimulator implant and last reprograming. I will refill the patient's pregabalin 75 mg twice a day and provide a 3 month supply of this medication. Patient will follow-up in 3 months. Patient will return to clinic in 3 months for reevaluation of symptoms, medication refill and follow-up. Patient has been instructed to contact the clinic with any concerns before the next appointment. Dr. Wallis has reviewed this note and agrees with this plan of care. This note was dictated using voice recognition software and make contain errors or omissions. [facility] Medical History Abnormal weight Atypical chest pain Bigeminy Bilateral foot pain Dysphagia An EGD was done. Noted that her gastric sleeve was somewhat expanded. She also had dilatation done on her esophagus. Recommended repeat in approximately 3 years. Generalized anxiety disorder History of gastroesophageal reflux (GERD) Hyperlipidemia Hypertension Hypothyroidism Knee pain Low back pain Metabolic syndrome PAC (premature atrial contraction) Pre-diabetes Recurrent major depression resistant to treatment Thyroid disease Thyroiditis She also has hypothyroidism likely related to this. With her elevated TSH, I am going to increase her levothyroxine dose and recheck her levels. Urinary incontinence Vitamin D deficiency Surgical History Status post gastric banding surgery 07/23/18 Social History Smoking Status: Current some day smoker tobacco type: cigarettes packs per day: 1 second hand exposure: No alcohol intake: never substance use type: denies use current occupational status: disabled Travel in the last 8 weeks: None household members: spouse housing: house number of children: 2 current occupational exposures/hazards: No caffeine: Yes
== END | disposition home or self-care (01) ==
PROVIDERS: PCP Physician Assistant; Visit Provider Nurse Practitioner Family
DX: M51.16 Intervertebral disc disorders with radiculopathy, lumbar region (principal); Z72.0 Tobacco use
CPT/HCPCS: 99212; G0463

== ENCOUNTER → 2022-08-16 12:27 | Outpatient (CLI) | payer MEDICAID, SELFPAY ==
[2022-08-16 14:21] LABS: Blood Urea Nitrogen 10 mg/dl (7-17); Calcium 9.4 mg/dl (8.4-10.2); Carbon Dioxide 32 mmol/L (22.0-30.0); Chloride 97 mmol/L (98-107); Estimated Glomerular Filt Rate 65 ml/min (>60); GFR (African American) 78 ML/MIN (>60); Glucose 187 mg/dl (74-100); Sodium 132 mmol/L (136-145)
[2022-08-16 15:36] LABS: Anion Gap 6.8 mEq/L (5-15); Potassium 3.8 mmoL/L (3.5-5.1)
== END ==
PROVIDERS: PCP Physician Assistant; Visit Provider Physician Assistant
DX: I20.8 Other forms of angina pectoris (principal); K21.9 Gastro-esophageal reflux disease without esophagitis; Z72.0 Tobacco use; Z82.49 Family history of ischemic heart disease and other diseases of the circulatory system
CPT/HCPCS: 36415; 80048

== ENCOUNTER → 2022-08-28 14:41 | Outpatient (CLI) | payer MEDICAID, SELFPAY ==
[2022-08-28 14:28] LABS: Basophils # 0.1 K/mm3 (0-0.2); Basophils % 1.2 % (0.1-2.0); Eosinophils # 0.4 K/mm3 (0.0-0.4); Eosinophils % 5.2 % (0.1-12.0); Hematocrit 45.5 % (37.0-47.0); Hemoglobin 14.8 g/dL (12.2-16.2); Lymphocytes # 2.5 K/mm3 (0.7-4.5); Lymphocytes % 33.9 % (10-50); Mean Corpuscular HGB Conc 32.4 g/dL (31.8-35.4); Mean Corpuscular Hemoglobin 30.1 pg (27.0-31.2); Mean Corpuscular Volume 92.8 fl (81-99); Mean Platelet Volume 8.2 fl (7.4-10.4); Monocytes # 0.5 K/mm3 (0.1-1.0); Monocytes % 6.9 % (1.7-9.3); Neutrophils # 3.9 K/mm3 (1.8-7.8); Neutrophils % 52.9 % (37.0-80.0); Platelet Count 364 K/mm3 (142-424); Red Blood Count 4.91 M/mm3 (4.20-5.40); Red Cell Distribution Width 13.5 % (11.5-17.5); White Blood Count 7.3 K/mm3 (4.8-10.8)
[2022-08-28 15:30] LABS: Anion Gap 10.6 mEq/L (5-15); Blood Urea Nitrogen 10 mg/dl (7-17); Calcium 9.5 mg/dl (8.4-10.2); Carbon Dioxide 31 mmol/L (22.0-30.0); Chloride 99 mmol/L (98-107); Chol/HDL Ratio 3.2 (1-3.5); Cholesterol 201 mg/dl (140-200); Estimated Glomerular Filt Rate 65 ml/min (>60); GFR (African American) 78 ML/MIN (>60); Glucose 60 mg/dl (74-100); HDL Cholesterol 62 mg/dl (40-60); Potassium 4.6 mmoL/L (3.5-5.1); Sodium 136 mmol/L (136-145); Triglycerides 172 mg/dl (30-150); VLDL Cholesterol 34 mg/dL (0-40)
[2022-08-28 15:40] LABS: Direct LDL Cholesterol 105.45 mg/dL (100-129); Hemoglobin A1C 5.7 % (4.0-6.0)
[2022-08-28 15:50] LABS: Microalbumin < 6.000 mg/L (0-16.7)
[2022-08-28 16:00] LABS: Thyroid Stimulating Hormone 0.18 uIU/mL (0.465-4.68)
[2022-08-30 09:19] LABS: Thyroid Peroxidase Antibodies 297 IU/mL (0-34)
[2022-08-31 10:06] LABS: Thyroid Stimulating Immunoglob <0.10 IU/L (0.00-0.55)
== END ==
PROVIDERS: Otolaryngology; PCP Physician Assistant; Visit Provider Physician Assistant
DX: I25.10 Atherosclerotic heart disease of native coronary artery without angina pectoris (principal); R73.03 Prediabetes; E78.5 Hyperlipidemia, unspecified; E03.9 Hypothyroidism, unspecified; E06.9 Thyroiditis, unspecified
CPT/HCPCS: 80048; 80061; 82043; 83036; 84443; 84445; 85025; 86376

== ENCOUNTER → 2022-10-23 08:44 | Outpatient (POV) | payer MEDICAID, SELFPAY ==
--- NOTE | 2022-10-23 08:56 | EXP.PAIN.SOA ---
[facility] Pain Management SOAP Note Subjective:: Patient is a pleasant 57-year-old female who presents today for medication refill and follow-up. We are currently treating the patient for degenerative disc disease of lumbar spine with lumbar radiculopathy symptoms. Today she rates her pain a 1 out of 10. Patient denies any new trauma or injury. Patient denies any change in location or type of pain she experiences. Patient does have a [employer] spinal cord stimulator in place. It was implanted in October 2021. Patient denies any problems with this device. She is currently managed with pregabalin 75 mg twice a day. Patient denies any side effects from this medication. She states this medication does help manage her pain symptoms. Patient does continue to use lidocaine patches as needed. Her Edwin is [id number].'s been reviewed and appropriate. Review of Systems: General: No recent weight changes, no fever, no sleep disturbances Respiratory: No cough, no shortness of air, no recurring pulmonary infections Cardiovascular/peripheral vascular: No chest pain, no palpitations, no edema, no shortness of breath Gastrointestinal: No new onset incontinence, normal bowel movements reported Genitourinary: No new onset incontinence Musculoskeletal: Low back pain Psychiatric: [Normal mood/affect] Neurological: [Denies weakness in extremities], [denies balance issues] Objective:: Physical Exam: General: Alert and oriented x3, no acute distress, pleasant and cooperative Lungs: Respirations even and unlabored, symmetrical chest expansion Eyes: PERRL Musculoskeletal: Flexion and extension of lumbar [spine] somewhat guarded secondary to pain, [antalgic gait noted] Neurological: Speech clear, no gross sensory deficit ORT score updated with low risk Assessment:: Degenerative disc disease of lumbar spine with lumbar radiculopathy symptoms Plan:: Patient continues to have pain in her low back however she is doing well with her current medication regimen. I will refill her pregabalin 75 mg twice a day and provide a 3-month supply of this medication. Patient will return to clinic in 3 months for reevaluation of symptoms, medication refill and follow-up. Patient has been instructed to contact the clinic with any concerns before the next appointment. Dr. Wallis has reviewed this note and agrees with this plan of care. This note was dictated using voice recognition software and make contain errors or omissions. [facility] Disclaimer: The information contained in this section may have been updated after the patient was seen, as this information can be updated by other users. Medical History (Updated 08/28/22 @ 13:23 by Sandip Galeana III, MD) Abnormal weight Atypical chest pain Bigeminy Bilateral foot pain Diastolic dysfunction Dysphagia Generalized anxiety disorder History of gastroesophageal reflux (GERD) Hyperlipidemia Hypertension Hypothyroidism Hypothyroidism (acquired) Knee pain Low back pain Metabolic syndrome PAC (premature atrial contraction) Pre-diabetes Recurrent major depression resistant to treatment Thyroid disease Thyroiditis Thyroiditis Urinary incontinence Vitamin D deficiency Surgical History Status post gastric banding surgery Social History Smoking Status: Current some day smoker tobacco type: cigarettes packs per day: 1 second hand exposure: No alcohol intake: never substance use type: denies use current occupational status: disabled Travel in the last 8 weeks: None household members: spouse housing: house number of children: 2 current occupational exposures/hazards: No caffeine: Yes
[2022-10-23 09:23] VITALS: BP 122/70; PULSE 72; RESP 18; O2SAT 97; BMI 42.7
== END | disposition home or self-care (01) ==
PROVIDERS: PCP Physician Assistant; Visit Provider Nurse Practitioner Family
DX: M51.16 Intervertebral disc disorders with radiculopathy, lumbar region (principal)
CPT/HCPCS: 99212; G0463

== ENCOUNTER → 2023-01-22 08:33 | Outpatient (POV) | payer MEDICAID, SELFPAY ==
--- NOTE | 2023-01-22 09:09 | EXP.PAIN.SOA ---
[facility] Pain Management SOAP Note Subjective:: Patient is a pleasant 58-year-old female who presents today for 3-month follow-up and medication refill. We are currently treating the patient for degenerative disc disease of lumbar spine with lumbar radiculopathy symptoms. Today she rates her pain a 4 out of 10. Patient denies any new trauma or injury. She does state that she has been experiencing more pain in and around the upper portion of her spinal cord stimulator. She states she does notice this pain more frequently when she has been sitting for prolonged periods. She states these are almost like little spasms. She does state that she had contacted [employer]will representative to see about reprogramming however she has not heard back from them. She is managed currently with pregabalin 75 mg twice a day. She denies any side effects from this medication. She also uses lidocaine patches. Her Edwin is [id number]. Its been reviewed and appropriate. Review of Systems: General: No recent weight changes, no fever, no sleep disturbances Respiratory: No cough, no shortness of air, no recurring pulmonary infections Cardiovascular/peripheral vascular: No chest pain, no palpitations, no edema, no shortness of breath Gastrointestinal: No new onset incontinence, normal bowel movements reported Genitourinary: No new onset incontinence Musculoskeletal: Low back pain Psychiatric: [Normal mood/affect] Neurological: [Denies weakness in extremities], [denies balance issues] Objective:: Physical Exam: General: Alert and oriented x3, no acute distress, pleasant and cooperative Lungs: Respirations even and unlabored, symmetrical chest expansion Eyes: PERRL Musculoskeletal: Flexion and extension of lumbar [spine] somewhat guarded secondary to pain, [antalgic gait noted] point tenderness along right lumbar paraspinous muscles Neurological: Speech clear, no gross sensory deficit Assessment:: Degenerative disc disease of lumbar spine with lumbar radiculopathy symptoms, myofascial pain of right lumbar paraspinous muscles Plan:: Patient is experiencing more pain in and around her right lumbar paraspinous muscles with point tenderness and limited range of motion of her lumbar spine. I have discussed with the patient that she may benefit from trigger point injections at these locations. Risk and benefits were discussed with the patient and she would like to proceed forward with this plan of care. I will refill her pregabalin 75 mg twice a day and provide a 3-month supply of this medication. I will also contact [employer] good[employer] representative to get in touch with the patient for reprogramming. Patient will be scheduled for trigger point injections of her right lumbar paraspinous muscles. Patient has been instructed to contact the clinic with any concerns before the next appointment. Dr. Wallis has reviewed this note and agrees with this plan of care. This note was dictated using voice recognition software and make contain errors or omissions. [facility] Disclaimer: The information contained in this section may have been updated after the patient was seen, as this information can be updated by other users. Medical History Abnormal weight Atypical chest pain Bigeminy Bilateral foot pain Diastolic dysfunction Dysphagia An EGD was done. Noted that her gastric sleeve was somewhat expanded. She also had dilatation done on her esophagus. Recommended repeat in approximately 3 years. Generalized anxiety disorder History of gastroesophageal reflux (GERD) Hyperlipidemia Hypertension Hypothyroidism Hypothyroidism (acquired) Knee pain Low back pain Metabolic syndrome PAC (premature atrial contraction) Pre-diabetes Recurrent major depression resistant to treatment Thyroid disease Thyroiditis She also has hypothyroidism likely related to this. With her elevated TSH, I am going to increase her levothyroxine dose and recheck he
[2023-01-22 09:38] VITALS: BP 136/70; PULSE 75; RESP 18; O2SAT 97; BMI 41.6
== END | disposition home or self-care (01) ==
PROVIDERS: PCP Physician Assistant; Visit Provider Nurse Practitioner Family
DX: M51.16 Intervertebral disc disorders with radiculopathy, lumbar region (principal); M79.18 Myalgia, other site
CPT/HCPCS: 99212; G0463

== ENCOUNTER 2023-01-30 10:28 | Day surgery (SDC) | payer MEDICAID, SELFPAY ==
[2023-01-30 10:43] VITALS: BP 120/70; PULSE 69; RESP 18; TEMP 36.2; O2SAT 99; BMI 40.9
[2023-01-30 10:55] VITALS: BP 127/67; PULSE 65; RESP 18; O2SAT 99
--- NOTE | 2023-01-30 10:57 | P.PCN_ITS ---
Procedure Date: 01/30/23 Time: 10:45 Anesthesiologist:: Nahid Quiroga CRNA Complications:: None Pre-procedure Diagnosis:: Myofascial pain right lumbar paraspinous muscle. Degenerative disc lumbar spine multilevels. Lumbar radiculopathy. Post-procedure Diagnosis:: Same. Indications for Procedure:: Patient is a very pleasant 58-year-old female that comes our clinic today for right lumbar paraspinous muscle trigger point injections. Patient has a working spinal cord stimulator. Patient describes the low lumbar right-sided pain as sharp, dull, aching. She rates the pain 6/10. Procedure Details:: Details of the procedure explained the patient. The patient taken procedure room placed in the sitting position. The area over the lumbar spine was cleansed using chlorhexidine as a cleansing solution. Using a 25-gauge inch and half needle and a solution of 0.25% Marcaine +1% lidocaine and 40 mg of Depo- Medrol. 3 mL of solution was injected after negative aspiration in 3 separate areas along the right lumbar paraspinous muscle. Patient tolerated procedure without difficulty. There are no complications. Plan and Disposition:: Patient was discharged without incident.
== END 2023-01-30 10:55 | disposition home or self-care (01) ==
PROVIDERS: PCP Physician Assistant; Visit Provider Nurse Anesthetist, Certified Registered
DX: M51.16 Intervertebral disc disorders with radiculopathy, lumbar region (principal); M79.18 Myalgia, other site
CPT/HCPCS: 20552; J1040

== ENCOUNTER → 2023-02-05 09:18 | Outpatient (CLI) | payer MEDICAID, SELFPAY ==
[2023-02-05 10:08] LABS: Basophils % 0.4 % (0.1-2.0); Eosinophils # 0.1 K/mm3 (0.0-0.4); Eosinophils % 1.4 % (0.1-12.0); Hematocrit 47.3 % (37.0-47.0); Hemoglobin 15.3 g/dL (12.2-16.2); Lymphocytes # 1.5 K/mm3 (0.7-4.5); Lymphocytes % 20.8 % (10-50); Mean Corpuscular HGB Conc 32.4 g/dL (31.8-35.4); Mean Corpuscular Hemoglobin 29.7 pg (27.0-31.2); Mean Corpuscular Volume 91.8 fl (81-99); Monocytes # 0.5 K/mm3 (0.1-1.0); Monocytes % 6.5 % (1.7-9.3); Neutrophils # 5.3 K/mm3 (1.8-7.8); Platelet Count 333 K/mm3 (142-424); Red Blood Count 5.16 M/mm3 (4.20-5.40); Red Cell Distribution Width 13.3 % (11.5-17.5); White Blood Count 7.4 K/mm3 (4.8-10.8)
[2023-02-05 10:29] LABS: Alanine Aminotransferase 16 U/L (12-78); Albumin Level 3.9 g/dl (3.5-5.0); Albumin/Globulin Ratio 1.7 (1.1-1.8); Alkaline Phosphatase 113 U/L (38-126); Anion Gap 8.2 mEq/L (5-15); Aspartate Amino Transferase 20 U/L (14-36); Bilirubin,Total 0.5 mg/dl (0.2-1.3); Blood Urea Nitrogen 6 mg/dl (7-17); Carbon Dioxide 32 mmol/L (22.0-30.0); Chloride 99 mmol/L (98-107); Chol/HDL Ratio 2.7 (1-3.5); Cholesterol 165 mg/dl (140-200); Estimated Glomerular Filt Rate 86 ml/min (>60); GFR (African American) 104 ML/MIN (>60); Globulin 2.3 g/dL (1.3-3.2); Glucose 74 mg/dl (74-100); HDL Cholesterol 61 mg/dl (40-60); Potassium 4.2 mmoL/L (3.5-5.1); Sodium 135 mmol/L (136-145); Total Protein,Serum 6.2 g/dl (6.3-8.2); Triglycerides 110 mg/dl (30-150); VLDL Cholesterol 22 mg/dL (0-40)
[2023-02-05 10:39] LABS: Direct LDL Cholesterol 88.05 mg/dL (100-129)
[2023-02-05 10:59] LABS: Thyroid Stimulating Hormone < 0.02 uIU/mL (0.465-4.68)
[2023-02-05 11:09] LABS: 25-OH Vitamin D, Total 51.8 ng/mL (30-100)
[2023-02-05 11:37] LABS: Folate > 20.00 ng/mL
[2023-02-05 11:43] LABS: Iron 85 ug/dL (37-170)
[2023-02-05 11:50] LABS: Hemoglobin A1C 5.1 % (4.0-6.0)
[2023-02-05 11:52] LABS: Total Iron Binding Capacity 244 ug/dL (265-497)
[2023-02-09 00:03] LABS: Vitamin B1 166.4 nmol/L (66.5-200.0)
[2023-02-09 16:01] LABS: Vitamin E Alpha Tocopherol 8.2 mg/L (7.0-25.1)
[2023-02-11 12:07] LABS: Vitamin A 39.2 ug/dL (20.1-62.0)
[2023-03-04 21:26] LABS: Methylmalonic Acid 133 nmol/L (0-378)
== END ==
PROVIDERS: PCP Physician Assistant; Visit Provider Nurse Practitioner Family
DX: Z90.3 Acquired absence of stomach [part of] (principal)
CPT/HCPCS: 36415; 80053; 80061; 82306; 82746; 83036; 83540; 83550; 83921; 84425; 84443; 84446; 84590; 85025

== ENCOUNTER → 2023-03-05 14:26 | Outpatient (POV) | payer MEDICAID, SELFPAY ==
--- NOTE | 2023-03-05 15:30 | EXP.PAIN.SOA ---
[facility] Pain Management SOAP Note Subjective:: Patient is a pleasant 58-year-old female who presents today for follow-up of trigger point injections of her right lumbar paraspinous muscles on 01/30/2023 and medication refill. We are currently treating the patient for degenerative disc disease of lumbar spine with lumbar radiculopathy symptoms, myofascial pain. Today she rates her pain a 0 out of 10. Patient states she had 100% improvement of her right-sided lumbar pain following this injection and it still continues to provide additional relief. Patient does also have a [employer] spinal cord stimulator in place. Patient states that she has been having some change in pain symptoms and we are planning on reprogramming her during today's visit. Patient is currently managed with pregabalin 75 mg twice a day. Patient denies any side effects from this medication. Her Edwin is [id number]. Its been reviewed and appropriate. Review of Systems: General: No recent weight changes, no fever, no sleep disturbances Respiratory: No cough, no shortness of air, no recurring pulmonary infections Cardiovascular/peripheral vascular: No chest pain, no palpitations, no edema, no shortness of breath Gastrointestinal: No new onset incontinence, normal bowel movements reported Genitourinary: No new onset incontinence Musculoskeletal: Low back pain Psychiatric: [Normal mood/affect] Neurological: [Denies weakness in extremities], [denies balance issues] Objective:: Physical Exam: General: Alert and oriented x3, no acute distress, pleasant and cooperative Lungs: Respirations even and unlabored, symmetrical chest expansion Eyes: PERRL Musculoskeletal: Flexion and extension of lumbar [spine] somewhat guarded secondary to pain, [antalgic gait noted] Neurological: Speech clear, no gross sensory deficit Assessment:: Degenerative disc disease of lumbar spine with lumbar radiculopathy symptoms Plan:: Patient has had 100% improvement in her previous right lumbar paraspinous muscles following her injection and does not require any additional injective therapy. [employer] customer response representative was present during today's visit and was able to reprogram her SCS device and provide additional relief. I will refill the patient's pregabalin 75 mg twice a day and provide a 1 month supply of this medication. Patient will return to clinic in 1 month for reevaluation of symptoms and plan of care. Patient has been instructed to contact the clinic with any concerns before the next appointment. Dr. Wallis has reviewed this note and agrees with this plan of care. This note was dictated using voice recognition software and make contain errors or omissions. [facility] Disclaimer: The information contained in this section may have been updated after the patient was seen, as this information can be updated by other users. Medical History Abnormal weight Atypical chest pain Bigeminy Bilateral foot pain Diastolic dysfunction Dysphagia An EGD was done. Noted that her gastric sleeve was somewhat expanded. She also had dilatation done on her esophagus. Recommended repeat in approximately 3 years. Generalized anxiety disorder History of gastroesophageal reflux (GERD) Hyperlipidemia Hypertension Hypothyroidism Hypothyroidism (acquired) Knee pain Low back pain Metabolic syndrome PAC (premature atrial contraction) Pre-diabetes Recurrent major depression resistant to treatment Thyroid disease Thyroiditis She also has hypothyroidism likely related to this. With her elevated TSH, I am going to increase her levothyroxine dose and recheck her levels. Thyroiditis Urinary incontinence Vitamin D deficiency Surgical History Status post gastric banding surgery 07/23/18 Family History Other No significant family history Social H
[2023-03-05 15:35] VITALS: BP 108/70; PULSE 66; RESP 18; O2SAT 97; BMI 40.0
== END | disposition home or self-care (01) ==
PROVIDERS: PCP Physician Assistant; Visit Provider Nurse Practitioner Family
DX: M51.16 Intervertebral disc disorders with radiculopathy, lumbar region (principal); M79.10 Myalgia, unspecified site
CPT/HCPCS: 99212; G0463

== ENCOUNTER → 2023-05-07 10:25 | Outpatient (POV) | payer MEDICAID, SELFPAY ==
--- NOTE | 2023-05-07 11:04 | EXP.PAIN.SOA ---
[facility] Pain Management SOAP Note Subjective:: Patient is a pleasant 58-year-old female who presents today for medication refill and follow-up. We are currently treating the patient for degenerative disc disease of lumbar spine with lumbar radiculopathy symptoms, myofascial pain. Today she rates her pain a 0 out of 10. Patient denies any new trauma or injury. Patient has recently had gastric bypass surgery from Dr. Flores in [place]. Patient states she is doing well with this. Patient does state that they added Celebrex twice a day and it is provided significant relief. Patient does state between it and the Lyrica she has not had pain in the last 5 days. Patient does have a [employer] spinal cord stimulator in place and states the programming continues to do well and does not need adjustment. She is currently managed with pregabalin 75 mg twice a day. She denies any side effects from this medication. Her Edwin is [id number]. Its been reviewed and appropriate. Review of Systems: General: No recent weight changes, no fever, no sleep disturbances Respiratory: No cough, no shortness of air, no recurring pulmonary infections Cardiovascular/peripheral vascular: No chest pain, no palpitations, no edema, no shortness of breath Gastrointestinal: No new onset incontinence, normal bowel movements reported Genitourinary: No new onset incontinence Musculoskeletal: Low back pain Psychiatric: [Normal mood/affect] Neurological: [Denies weakness in extremities], [denies balance issues] Objective:: Physical Exam: General: Alert and oriented x3, no acute distress, pleasant and cooperative Lungs: Respirations even and unlabored, symmetrical chest expansion Eyes: PERRL Musculoskeletal: Flexion and extension of lumbar [spine] somewhat guarded secondary to pain, [antalgic gait noted] Neurological: Speech clear, no gross sensory deficit Assessment:: Degenerative disc disease of lumbar spine with lumbar radiculopathy symptoms, myofascial pain Plan:: Patient is doing well with her current medication regimen. I will refill her pregabalin 75 mg twice a day and provide a 2-month supply of this medication. I have also counseled the patient that in future if she does need additional refills of her Celebrex to let us know and we can send this in. Patient denies any heart or kidney issues. Patient will return to clinic in 2 months for reevaluation of symptoms and plan of care. Patient has been instructed to contact the clinic with any concerns before the next appointment. Dr. Wallis has reviewed this note and agrees with this plan of care. This note was dictated using voice recognition software and make contain errors or omissions. [facility] Disclaimer: The information contained in this section may have been updated after the patient was seen, as this information can be updated by other users. Medical History Abnormal weight Atypical chest pain Bigeminy Bilateral foot pain Diastolic dysfunction Dysphagia An EGD was done. Noted that her gastric sleeve was somewhat expanded. She also had dilatation done on her esophagus. Recommended repeat in approximately 3 years. Generalized anxiety disorder History of gastroesophageal reflux (GERD) Hyperlipidemia Hypertension Hypothyroidism Hypothyroidism (acquired) Knee pain Low back pain Metabolic syndrome PAC (premature atrial contraction) Pre-diabetes Recurrent major depression resistant to treatment Thyroid disease Thyroiditis She also has hypothyroidism likely related to this. With her elevated TSH, I am going to increase her levothyroxine dose and recheck her levels. Thyroiditis Urinary incontinence Vitamin D deficiency Surgical History Status post gastric banding surgery 07/23/18 Family History Other No significant family history Social H
[2023-05-07 12:26] VITALS: BP 112/71; PULSE 74; RESP 18; O2SAT 99; BMI 39.8
== END | disposition home or self-care (01) ==
PROVIDERS: PCP Physician Assistant; Visit Provider Nurse Practitioner Family
DX: M51.16 Intervertebral disc disorders with radiculopathy, lumbar region (principal); M79.10 Myalgia, unspecified site
CPT/HCPCS: 99212; G0463

== ENCOUNTER → 2023-05-28 09:22 | Outpatient (CLI) | payer MEDICAID, SELFPAY ==
[2023-05-28 10:22] LABS: Iron 72 ug/dL (37-170)
[2023-05-28 10:39] LABS: Free T4 (Free Thyroxine) 1.71 ng/dl (0.78-2.19)
[2023-05-28 10:53] LABS: Thyroid Stimulating Hormone 0.82 uIU/mL (0.465-4.68)
== END ==
PROVIDERS: PCP Physician Assistant; Visit Provider Nurse Practitioner
DX: I49.8 Other specified cardiac arrhythmias (principal); E03.9 Hypothyroidism, unspecified
CPT/HCPCS: 36415; 83540; 84439; 84443

== ENCOUNTER → 2023-08-28 09:42 | Outpatient (CLI) | payer MEDICAID, SELFPAY ==
[2023-08-28 10:41] LABS: Free T4 (Free Thyroxine) 0.92 ng/dl (0.78-2.19)
== END ==
PROVIDERS: PCP Physician Assistant; Visit Provider Nurse Practitioner
DX: E03.9 Hypothyroidism, unspecified (principal); E06.9 Thyroiditis, unspecified
CPT/HCPCS: 36415; 84439; 84443

== ENCOUNTER → 2023-09-26 14:09 | Outpatient (POV) | payer MEDICAID, SELFPAY ==
[2023-09-26 14:44] VITALS: BP 112/67; PULSE 63; RESP 18; O2SAT 98; BMI 35.7
--- NOTE | 2023-09-26 14:46 | EXP.PAIN.SOA ---
[facility] Pain Management SOAP Note Subjective:: Patient is a pleasant 58-year-old female who presents today for medication refill and follow-up. We are currently treating the patient for degenerative disc disease of lumbar spine with lumbar radiculopathy symptoms, myofascial pain. Today she rates her pain a 4 out of 10. Patient denies any new trauma or injury. Patient does state that she has been out of her Lyrica for a couple of weeks and that she has started to experience a sharp shooting pain in and around her tailbone. Patient states she only experiences this pain when she is sitting for long periods of time. She frequently states she has to change positions in order to get improvement. Patient does state that the pain can interfere with her ability perform activities of daily living such as cooking and cleaning. Patient does have a [employer] spinal cord stimulator in place however it has not been reprogrammed since February 2023. Patient is currently managed with pregabalin 75 mg twice a day. She denies any side effects from this medication. Her Edwin has been reviewed and is appropriate. Review of Systems: General: No recent weight changes, no fever, no sleep disturbances Respiratory: No cough, no shortness of air, no recurring pulmonary infections Cardiovascular/peripheral vascular: No chest pain, no palpitations, no edema, no shortness of breath Gastrointestinal: No new onset incontinence, normal bowel movements reported Genitourinary: No new onset incontinence Musculoskeletal: Low back pain, buttocks pain Psychiatric: [Normal mood/affect] Neurological: [Denies weakness in extremities], [denies balance issues] Objective:: Physical Exam: General: Alert and oriented x3, no acute distress, pleasant and cooperative Lungs: Respirations even and unlabored, symmetrical chest expansion Eyes: PERRL Musculoskeletal: Flexion and extension of lumbar [spine] somewhat guarded secondary to pain, [antalgic gait noted] Neurological: Speech clear, no gross sensory deficit Assessment:: myofascial pain,Degenerative disc disease of lumbar spine with lumbar radiculopathy symptoms, Plan:: Patient is experiencing worsening pain in and around her tailbone and buttocks area. Patient has limited range of motion of her lumbar spine. I will refill the patient's pregabalin 75 mg twice a day and provide a 3-month supply of this medication. I have discussed with the patient that I will contact [employer] goodwill representative and have them reach out to reprogram her device. I have discussed with the patient if the pain does not improve that she may benefit from a caudal epidural steroid injection. Risk and benefits were discussed with the patient and we will follow-up with this at future visits. I have also discussed with the patient if this does not get better and she would like to schedule this injection between her next visit she can call our office and schedule it over the phone. Patient will return to clinic in 3 months for reevaluation of symptoms and plan of care. Patient has been instructed to contact the clinic with any concerns before the next appointment. Dr. Wallis has reviewed this note and agrees with this plan of care. This note was dictated using voice recognition software and make contain errors or omissions. [facility] Disclaimer: The information contained in this section may have been updated after the patient was seen, as this information can be updated by other users. Medical History Abnormal weight Atypical chest pain Bigeminy Bilateral foot pain Diastolic dysfunction Dysphagia An EGD was done. Noted that her gastric sleeve was somewhat expanded. She also had dilatation done on her esophagus. Recommended repeat in approximately 3 years. Generalized anxiety disorder History of gastroesophageal reflux (GERD) Hyperlipidemia Hypertension Hypothyroidism Hypothyroidism (acquired) Knee pain Low back pain Metabolic syndrome PAC (premature atrial contraction) Pre-diabetes Recurrent major depression resistant to treatment Thyroid disease Thyroiditis She also has hypothyroidism likely related to this. With her elevated TSH, I am going to increase her levothyroxine dose and recheck her levels. Thyroiditis Urinary incontinence Vitamin D deficiency Surgical History Status post gastric banding surgery 07/23/18 Family History Other No significant family history Social History Smoking Status: Current some day smoker tobacco type: cigarettes packs per day: 1 second hand exposure: No alcohol intake: never substance use type: denies use current occupational status: disabled Travel in the last 8 weeks: None household members: spouse housing: house number of children: 2 current occupational exposures/hazards: No caffeine: Yes
== END | disposition home or self-care (01) ==
PROVIDERS: PCP Physician Assistant; Visit Provider Nurse Practitioner Family
DX: M51.16 Intervertebral disc disorders with radiculopathy, lumbar region (principal); M79.10 Myalgia, unspecified site
CPT/HCPCS: 99212; G0463

== ENCOUNTER 2023-10-30 14:18 | Outpatient (CLI) | payer MEDICAID, SELFPAY ==
[2023-10-30 14:48] LABS: Basophils % 0.3 % (0.1-2.0); Eosinophils # 0.5 K/mm3 (0.0-0.4); Eosinophils % 7.5 % (0.1-12.0); Hematocrit 42.4 % (37.0-47.0); Hemoglobin 14.3 g/dL (12.2-16.2); Lymphocytes # 2.1 K/mm3 (0.7-4.5); Lymphocytes % 31.5 % (10-50); Mean Corpuscular HGB Conc 33.7 g/dL (31.8-35.4); Mean Corpuscular Hemoglobin 31.3 pg (27.0-31.2); Mean Corpuscular Volume 92.9 fl (81-99); Monocytes # 0.4 K/mm3 (0.1-1.0); Monocytes % 6.1 % (1.7-9.3); Neutrophils # 3.6 K/mm3 (1.8-7.8); Neutrophils % 54.6 % (37.0-80.0); Platelet Count 351 K/mm3 (142-424); Red Blood Count 4.57 M/mm3 (4.20-5.40); Red Cell Distribution Width 13.9 % (11.5-17.5); White Blood Count 6.5 K/mm3 (4.8-10.8)
[2023-10-30 14:56] LABS: Creatinine,Urine Random 15 mg/dL (Not Estab.)
[2023-10-30 15:07] LABS: Microalbumin < 6.000 mg/L (0-16.7)
[2023-10-30 15:14] LABS: Alanine Aminotransferase 30 U/L (12-78); Albumin Level 3.8 g/dl (3.5-5.0); Albumin/Globulin Ratio 1.7 (1.1-1.8); Alkaline Phosphatase 110 U/L (38-126); Anion Gap 6.4 mEq/L (5-15); Aspartate Amino Transferase 34 U/L (14-36); Bilirubin,Total 0.4 mg/dl (0.2-1.3); Blood Urea Nitrogen 5 mg/dl (7-17); Carbon Dioxide 31 mmol/L (22.0-30.0); Chloride 96 mmol/L (98-107); Chol/HDL Ratio 2.4 (1-3.5); Cholesterol 191 mg/dl (140-200); Estimated Glomerular Filt Rate 86 ml/min (>60); GFR (African American) 104 ML/MIN (>60); Globulin 2.3 g/dL (1.3-3.2); Glucose 89 mg/dl (74-100); HDL Cholesterol 81 mg/dl (40-60); Potassium 4.4 mmoL/L (3.5-5.1); Sodium 129 mmol/L (136-145); Total Protein,Serum 6.1 g/dl (6.3-8.2); Triglycerides 90 mg/dl (30-150); VLDL Cholesterol 18 mg/dL (0-40)
[2023-10-30 15:25] LABS: Direct LDL Cholesterol 72.55 mg/dL (100-129); Hemoglobin A1C 4.9 % (4.0-6.0)
[2023-10-30 15:29] LABS: 25-OH Vitamin D, Total 39.3 ng/mL (30-100)
[2023-10-30 15:30] LABS: Free T4 (Free Thyroxine) 0.96 ng/dl (0.78-2.19)
[2023-10-30 16:40] LABS: Ferritin 163 ng/ml (11.1-264)
== END 2023-10-30 23:59 ==
LOC: LAB 14:19
PROVIDERS: PCP Physician Assistant; Visit Provider Physician Assistant
DX: R53.83 Other fatigue (principal); E03.9 Hypothyroidism, unspecified; E55.9 Vitamin D deficiency, unspecified; E78.5 Hyperlipidemia, unspecified; I10 Essential (primary) hypertension; R73.03 Prediabetes; K59.00 Constipation, unspecified; Z68.31 Body mass index [BMI] 31.0-31.9, adult; F17.210 Nicotine dependence, cigarettes, uncomplicated
CPT/HCPCS: 36415; 80053; 80061; 82043; 82306; 82570; 82728; 83036; 84439; 84443; 85025

== ENCOUNTER 2023-11-27 09:39 | Outpatient (CLI) | payer MEDICAID, SELFPAY ==
[2023-11-27 10:51] LABS: Iron 95 ug/dL (37-170)
[2023-11-27 10:57] LABS: Free T4 (Free Thyroxine) 1.44 ng/dl (0.78-2.19)
[2023-11-27 11:04] LABS: Total Iron Binding Capacity 266 ug/dL (265-497)
[2023-11-27 11:11] LABS: Thyroid Stimulating Hormone 2.18 uIU/mL (0.465-4.68)
== END 2023-11-27 23:59 ==
LOC: LAB 09:40
PROVIDERS: PCP Physician Assistant; Visit Provider Nurse Practitioner
DX: E03.9 Hypothyroidism, unspecified (principal); R79.89 Other specified abnormal findings of blood chemistry
CPT/HCPCS: 36415; 83540; 83550; 84439; 84443

== ENCOUNTER 2023-12-24 08:19 | Outpatient (POV) | payer MEDICAID, SELFPAY ==
[2023-12-24 08:41] VITALS: BP 124/66; PULSE 66; RESP 20; O2SAT 97; BMI 36.5
--- NOTE | 2023-12-24 08:48 | EXP.PAIN.SOA ---
[facility] Pain Management SOAP Note Subjective:: Patient is a pleasant 58-year-old female who presents today for medication refill and follow-up. Today she rates her pain a 5 out of 10. Patient denies any new trauma or injury. She does state from our last visit she still is experiencing tailbone pain into around her buttocks. She describes it as a aching sensation with occasional sharp shooting pains. She does state that it is worse with prolonged positioning and does interfere with her ability to perform activities of daily living such as cooking and cleaning. From our last visit she did meet with [employer] representatives and had her stimulator reprogrammed and states that the update did give her a little bit better coverage but it is not doing much for the continued tailbone pain. Patient denies any specific trauma or injury that initially led to the symptoms. Patient states that she is interested in injection therapy due to this going on now for several months with no additional improvement. Patient has tried [id number] Tylenol and ibuprofen along with heat and ice and topicals with minimal relief. Patient has also continued to do at home stretching exercise for longer than 6 weeks. Patient is currently managed with pregabalin 75 mg twice a day. She denies any side effects from this medication. Her Edwin has been reviewed and is appropriate. Review of Systems: General: No recent weight changes, no fever, no sleep disturbances Respiratory: No cough, no shortness of air, no recurring pulmonary infections Cardiovascular/peripheral vascular: No chest pain, no palpitations, no edema, no shortness of breath Gastrointestinal: No new onset incontinence, normal bowel movements reported Genitourinary: No new onset incontinence Musculoskeletal: Buttocks pain, tailbone pain Psychiatric: [Normal mood/affect] Neurological: [Denies weakness in extremities], [denies balance issues] Objective:: Physical Exam: General: Alert and oriented x3, no acute distress, pleasant and cooperative Lungs: Respirations even and unlabored, symmetrical chest expansion Eyes: PERRL Musculoskeletal: Flexion and extension of lumbar [spine] somewhat guarded secondary to pain, [antalgic gait noted] point tenderness along sacral spine Neurological: Speech clear, no gross sensory deficit Assessment:: Degenerative disc disease of lumbar spine with lumbar radiculopathy symptoms, myofascial pain, tailbone/buttocks pain Plan:: Patient is experiencing worsening pain in and around her buttocks and tailbone area. Patient had limited range of motion of her lumbar spine and point tenderness in and around her sacral spine during today's exam. I have discussed with patient that she may benefit from caudal epidural steroid injection. Risk and benefits were discussed with patient and she would like to proceed forward with this plan of care. Patient has tried and failed conservative therapies. I will refill the patient's pregabalin 75 mg twice a day and provide a 3-month supply of this medication. Patient will be scheduled for caudal epidural under fluoroscopy. Patient has been instructed to contact the clinic with any concerns before the next appointment. Dr. Wallis has reviewed this note and agrees with this plan of care. This note was dictated using voice recognition software and make contain errors or omissions. [facility] Disclaimer: The information contained in this section may have been updated after the patient was seen, as this information can be updated by other users. Medical History (Updated 11/27/23 @ 09:04 by JEFFRY Domínguez) Thyroiditis Diastolic dysfunction Thyroid disease History of gastroesophageal reflux (GERD) Atypical chest pain Bigeminy PAC (premature atrial contraction) Generalized anxiety disorder Recurrent major depression resistant to treatment Dysphagia Thyroiditis Metabolic syndrome Pre-diabetes Bilateral foot pain Abnormal weight Urinary incontinence Vitamin D deficiency Hypothyroidism Low back pain Knee pain Hyperlipidemia Hypertension Surgical History Status post gastric banding surgery Family History Other No significant family history Social History Smoking Status: Current some day smoker tobacco type: cigarettes packs per day: 1 second hand exposure: No alcohol intake: never substance use type: denies use current occupational status: employed Travel in the last 8 weeks: None household members: spouse housing: house number of children: 2 current occupational exposures/hazards: No caffeine: Yes
== END 2023-12-24 23:59 | disposition home or self-care (01) ==
PROVIDERS: PCP Physician Assistant; Visit Provider Nurse Practitioner Family
DX: M51.16 Intervertebral disc disorders with radiculopathy, lumbar region (principal); M79.18 Myalgia, other site; M53.3 Sacrococcygeal disorders, not elsewhere classified
CPT/HCPCS: 99212; G0463

== ENCOUNTER 2024-02-15 08:35 | Outpatient (POV) | payer MEDICAID, SELFPAY ==
--- NOTE | 2024-02-15 08:58 | EXP.PAIN.SOA ---
[facility] Pain Management SOAP Note Subjective:: Patient is a pleasant 59-year-old female comes our clinic today for follow-up visit regarding insurance denial of lumbar epidural steroid injection. Also, medication refills for Lyrica 75 mg 1 p.o. twice daily. Patient currently reporting low back pain she describes as constant, dull, aching. Patient also reports bilateral buttock pain with radiating symptoms in the posterior leg to the knee bilaterally. Patient having difficulty sitting for any length of time. Ambulating for any length of time intensifies pain. She currently has a working spinal cord stimulator. She reports the stimulator does help significantly with bilateral lumbar radiculopathy. She rates her pain today 6/10. Patient's last MRI on the lumbar spine was 2020. MRI of the lumbar spine revealed severe disc bulge L4-5 with foraminal stenosis bilaterally. I will recommend repeat of the lumbar MRI to further discern pathology. Based on the new MRI we will treat the patient accordingly. I will refill her Lyrica 75 mg 1 p.o. twice daily. Patient states the medication does help with her active daily living. She is not reporting side effects from the medication. Patient has completed home exercise program within the last 3 months. She reports physical therapy and home exercise program intensified her lumbar back and bilateral hip and leg radicular symptoms. Objective:: Patient is awake alert [place] x 3. In no acute distress. Flexion-extension lumbar spine guarded secondary to pain. Deep tendon reflexes upper and lower extremities normal. Motor strength upper and lower extremities normal. There is no gross sensory deficit. Gait is normal. Assessment:: Degenerative disc lumbar spine multilevels. Lumbar radiculopathy. Lumbar disc bulge L4-5. Foraminal stenosis bilaterally L4-5. Spinal stenosis lumbar spine. Facet arthropathy lumbar spine multilevels. Plan:: I recommend repeat lumbar MRI. Patient will follow-up for review of findings following lumbar MRI. Patient's Edwin has been reviewed and appropriate. Her UDS has been appropriate. [facility] Disclaimer: The information contained in this section may have been updated after the patient was seen, as this information can be updated by other users. Medical History (Updated 11/27/23 @ 09:04 by JEFFRY Domínguez) Thyroiditis Diastolic dysfunction Thyroid disease History of gastroesophageal reflux (GERD) Atypical chest pain Bigeminy PAC (premature atrial contraction) Generalized anxiety disorder Recurrent major depression resistant to treatment Dysphagia Thyroiditis Metabolic syndrome Pre-diabetes Bilateral foot pain Abnormal weight Urinary incontinence Vitamin D deficiency Hypothyroidism Low back pain Knee pain Hyperlipidemia Hypertension Surgical History (Reviewed 11/27/23 @ 09: by JEFFRY Domínguez) Status post gastric banding surgery Family History (Reviewed 11/27/23 @ 09: by JEFFRY Domínguez) Other No significant family history Social History (Reviewed 11/27/23 @ 09: by JEFFRY Domínguez) Smoking Status: Current some day smoker tobacco type: cigarettes packs per day: 1 second hand exposure: No alcohol intake: never substance use type: denies use current occupational status: employed Travel in the last 8 weeks: None household members: spouse housing: house number of children: 2 current occupational exposures/hazards: No caffeine: Yes
[2024-02-15 09:24] VITALS: BP 104/50; PULSE 66; RESP 18; O2SAT 99; BMI 34.2
== END 2024-02-15 23:59 | disposition home or self-care (01) ==
PROVIDERS: PCP Physician Assistant; Visit Provider Nurse Anesthetist, Certified Registered
DX: M51.16 Intervertebral disc disorders with radiculopathy, lumbar region (principal); M51.26 Other intervertebral disc displacement, lumbar region; M48.061 Spinal stenosis, lumbar region without neurogenic claudication; M47.26 Other spondylosis with radiculopathy, lumbar region
CPT/HCPCS: 99212; G0463

== ENCOUNTER 2024-04-10 10:56 | Outpatient (POV) | payer MEDICAID, SELFPAY ==
[2024-04-10 11:01] VITALS: BP 136/71; PULSE 73; RESP 16; O2SAT 99; BMI 35.6
--- NOTE | 2024-04-10 12:15 | EXP.PAIN.SOA ---
[facility] Disclaimer: The information contained in this section may have been updated after the patient was seen, as this information can be updated by other users. Medical History Thyroiditis Diastolic dysfunction Thyroid disease History of gastroesophageal reflux (GERD) Atypical chest pain Bigeminy PAC (premature atrial contraction) Generalized anxiety disorder Recurrent major depression resistant to treatment Dysphagia An EGD was done. Noted that her gastric sleeve was somewhat expanded. She also had dilatation done on her esophagus. Recommended repeat in approximately 3 years. Thyroiditis She also has hypothyroidism likely related to this. With her elevated TSH, I am going to increase her levothyroxine dose and recheck her levels. Metabolic syndrome Pre-diabetes Bilateral foot pain Abnormal weight Urinary incontinence Vitamin D deficiency Hypothyroidism Low back pain Knee pain Hyperlipidemia Hypertension Surgical History Status post gastric banding surgery 07/23/18 Family History Other No significant family history Social History (Updated 04/10/24 @ 11:02 by Ronda Davis RN) Smoking Status: Former smoker tobacco type: cigarettes packs per day: 1 second hand exposure: No alcohol intake: never substance use type: denies use current occupational status: unemployed Travel in the last 8 weeks: None household members: spouse housing: house number of children: 2 current occupational exposures/hazards: No caffeine: Yes PM Subjective & Objective Subjective Subjective:: Patient is a pleasant 59-year-old female who presents today for follow-up of her lumbar MRI. Today she rates her pain a 7 out of 10. Patient states that she continues to have pain all across her back and denies radiating symptoms into her legs. She describes this as a constant aching, throbbing sensation. She does state the pain interferes with her ability perform activities of daily living such as cooking and cleaning. Patient is currently managed with Lyrica 75 mg twice a day. She denies any side effects from this medication. Patient is requesting if there is some type of a medication we can try for her daily aches and pains as well. Her Edwin has been reviewed and is appropriate. Review of Systems: General: No recent weight changes, no fever, no sleep disturbances Respiratory: No cough, no shortness of air, no recurring pulmonary infections Cardiovascular/peripheral vascular: No chest pain, no palpitations, no edema, no shortness of breath Gastrointestinal: No new onset incontinence, normal bowel movements reported Genitourinary: No new onset incontinence Musculoskeletal: Low back pain Psychiatric: [Normal mood/affect] Neurological: [Denies weakness in extremities], [denies balance issues] Pain at rest (0-10 scale): 7 Objective Objective:: Physical Exam: General: Alert and oriented x3, no acute distress, pleasant and cooperative Lungs: Respirations even and unlabored, symmetrical chest expansion Eyes: PERRL Musculoskeletal: Flexion and extension of lumbar [spine] somewhat guarded secondary to pain, [antalgic gait noted] positive Kemps test Neurological: Speech clear, no gross sensory deficit MRI lumbar spine without contrast April 04, 2024 Findings: Images are degraded by signal loss related to technique, a spinal cord stimulator protocol was utilized. Numbering assumes 5 lumbar type vertebral bodies the last fully formed disc space on series 9 image 11 is labeled L5-S1. Spinal cord terminates at L1 and has normal signal. Nerve roots of the cauda equina are normal in morphology. A spinal cord stimulator lead enters the spinal canal between L1 and L2 lamina and proximately extends beyond the [id number]. Localizer sequences demonstrate a shallow convex right lumbar curve. Vertebral body and facet alignment is anatomic. Vertebral body heights maintained. No concerning marrow signal. Multilevel disc degeneration. Discogenic endplate change including Modic type I fibrovascular component present at L2-3 and L4-5. T12-L1: Maintained disc height with left subarticular disc protrusion and annular fissure contributing to to the left lateral recess narrowing and crowding of several descending left cauda equina nerve roots. No canal or foraminal stenosis. Evaluation for facet arthrosis is limited due to spinal cord stimulator lead L1-2: Maintained disc height without herniation or bulge. No canal or foraminal stenosis. Mild facet arthrosis L2-L3: Mild disc height loss can asymmetric left disc bulge results in mild left foraminal stenosis with encroachment upon disc bulge results in mild left foraminal stenosis with encroachment upon and possible contact of the left L2 nerve at the extraforaminal zone. No canal or foraminal stenosis on the right. Mild facet arthrosis L3-L4: Mild disc height loss and asymmetric left disc bulge results in mild right and mild to moderate left foraminal stenosis with encroachment upon and possible contact of the left L3 nerve at the extraforaminal zone. No significant canal stenosis. Moderate facet arthrosis L4-L5: Severe disc height loss and asymmetric right disc osteophyte complex resulting in moderate right foraminal stenosis with encroachment upon a possible contact of the right L4 nerve at the extraforaminal zone with mild foraminal stenosis on the left. There is at least moderate spinal canal stenosis with right greater than left lateral recess narrowing and possible mass effect on the transversing descending right L5 nerve root. Advanced facet arthrosis. L5-S1: Maintained disc height without disc herniation or bulge. No canal or foraminal stenosis. Mild to moderate facet arthrosis Has patient had previous pain injection?: No Conservative treatment options previously tried: Home exercise plan Length of treatment: Longer than 6 weeks and Prescription medications Length of treatment: Longer than 6 weeks Meds Home Medications and Allergies Home Medications ?Medication ?Instructions ?Recorded ?Confirmed ?Type omeprazole 20 mg capsule,delayed 20 mg PO DAILY 07/16/23 04/10/24 History release amitriptyline 25 mg tablet See Rx Instructions .Route 10/16/23 04/10/24 Rx .COMPLEX #30 tabs oxybutynin chloride 10 mg See Rx Instructions .Route 10/16/23 04/10/24 Rx tablet,extended release 24 hr .COMPLEX #30 tabs levothyroxine 175 mcg tablet 175 mcg PO DAILY #90 tabs 10/31/23 04/10/24 Rx ergocalciferol (vitamin D2) 1,250 See Rx Instructions .Route 12/28/23 04/10/24 Rx mcg (50,000 unit) capsule .COMPLEX #14 caps pregabalin 75 mg capsule 75 mg PO BID . #60 caps 02/15/24 04/10/24 Rx buspirone 10 mg tablet 10 mg PO BID . #60 tabs 02/20/24 04/10/24 Rx cariprazine 3 mg capsule (Vraylar) 3 mg PO DAILY . #30 caps 02/20/24 04/10/24 Rx duloxetine 60 mg capsule,delayed 60 mg PO DAILY . #30 caps 02/20/24 04/10/24 Rx release cyclobenzaprine 10 mg tablet See Rx Instructions .Route 03/27/24 04/10/24 Rx .COMPLEX #30 tabs atorvastatin 10 mg tablet See Rx Instructions .Route 04/01/24 04/10/24 Rx .COMPLEX #30 tabs bupropion HCl 150 mg 24 hr tablet, See Rx Instructions .Route 04/01/24 04/10/24 Rx extended release .COMPLEX #30 tabs ferrous sulfate 142 mg (45 mg See Rx Instructions .Route 04/01/24 04/10/24 Rx iron) tablet,extended release .COMPLEX #30 tabs (Slow Release Iron) lisinopril 10 See Rx Instructions .Route 04/01/24 04/10/24 Rx mg-hydrochlorothiazide 12.5 mg .COMPLEX #30 tabs tablet naltrexone 50 mg tablet See Rx Instructions .Route 04/01/24 04/10/24 Rx .COMPLEX #30 tabs trazodone 50 mg tablet See Rx Instructions .Route 04/01/24 04/10/24 Rx .COMPLEX #30 tabs ondansetron 4 mg disintegrating 4 mg PO DIRECTED Nausea 04/10/24 04/10/24 History tablet New Prescriptions to Start Prescriptions: Allergies Allergy/AdvReac Type Severity Reaction Status Date / Time adhesive tape Allergy Verified 02/27/24 09:31 Assessment and Plan *Assessment and plan (1) Lumbar facet arthropathy: Status: Acute Category: Medical Code(s): M47.816 - Spondylosis without myelopathy or radiculopathy, lumbar region (2) Lumbar spondylosis: Status: Acute Category: Medical Code(s): M47.816 - Spondylosis without myelopathy or radiculopathy, lumbar region (3) Degenerative disc disease, lumbar: Status: Acute Category: Medical Code(s): M51.36 - Other intervertebral disc degeneration, lumbar region Plan Patient is experiencing worsening pain throughout her low back with no radiating symptoms to her legs. Patient did have limited range of motion of her lumbar spine and a positive Kemps test. I have discussed with patient that she may benefit from a lumbar medial branch block bilaterally. Risk and benefits were discussed with patient and she would like to proceed forward with this plan of care. Patient has tried and failed conservative treatment including oral medication, heat and ice, topicals, continued at home stretching exercises for longer than 6 weeks. We will submit to insurance for the lumbar MBB L3-L4, L4-L5 under fluoroscopy. Patient was counseled if she does have significant improvement following this procedure that we will plan on repeating this injection with the plan to do a lumbar RFA at a later date. Patient agrees with this plan of care. I will also order the patient a 2-week supply of baclofen 5 mg 3 times daily as needed and send in a 2-week dose of tramadol 50 mg twice daily. Patient has been instructed to contact the clinic with any concerns before the next appointment. Dr. Wallis has reviewed this note and agrees with this plan of care. This note was dictated using voice recognition software and make contain errors or omissions. All injections are used with Lidocaine or Bupivacaine and Depo Medrol.
== END 2024-04-10 23:59 | disposition home or self-care (01) ==
PROVIDERS: PCP Physician Assistant; Visit Provider Nurse Practitioner Family
DX: M47.816 Spondylosis without myelopathy or radiculopathy, lumbar region (principal); M51.36 Other intervertebral disc degeneration, lumbar region; Z87.891 Personal history of nicotine dependence; Z96.82 Presence of neurostimulator; Z73.89 Other problems related to life management difficulty; Z79.899 Other long term (current) drug therapy
CPT/HCPCS: 99212; G0463

== ENCOUNTER 2024-04-29 13:21 | Day surgery (SDC) | payer MEDICAID, SELFPAY ==
[2024-04-29 13:46] VITALS: BP 135/60; PULSE 62; RESP 18; TEMP 36.6; O2SAT 100; BMI 35.7
[2024-04-29 14:35] VITALS: BP 152/78; PULSE 60; RESP 16; O2SAT 100
--- NOTE | 2024-04-29 14:37 | P.PCN_ITS ---
Procedure Date: 04/29/24 Time: 14:30 Anesthesiologist:: Nahid Quiroga CRNA Complications:: None Pre-procedure Diagnosis:: Degenerative disc lumbar spine multilevels. Lumbar radiculopathy. Lumbar spondylosis. Multilevel lumbar facet arthropathy. Post-procedure Diagnosis:: Same. Indications for Procedure:: Patient is a pleasant 59-year-old female comes to clinic today for bilateral lumbar medial branch blocks/facet injection at the L3-4 and L4-5 level. This is round 1 of this injection for the patient. She describes the low back pain as constant, dull, aching. She describes difficulty with flexion, extension, left and right rotation. She rates her pain 7/10. Procedure Details:: Informed consent was obtained and the risk and benefits of the procedure was explained to the patient. Patient was taken to the procedure room where n oninvasive monitors were placed, including noninvasive blood pressure cuff as well as pulse oximeter. The area over the lumbar spine was cleansed using chlorhexidine as a cleansing solution. I anesthetized the skin and subcutaneous tissues with 1% Lidocaine. I placed 22-gauge spinal needles into the facet joint/ medial branches of [L3-L4, L4-L5 bilaterally. Needle placement was confirmed with fluoroscopy. After confirmation of needle placement, each site was injected with 1 mL of 1% lidocaine and 0.25 % Marcaine and 10 mg of Depo- Medrol. A total of 80 mg of depo medrol was used for bilateral medial branch blocks of [L3-L4, L4-L5 bilaterally. Patient tolerated the procedure without difficulty. There were no complications. Plan and Disposition:: Patient was discharged without incident.
[2024-04-29] MEDS: LIDOCAINE 1% 5ML PF VIAL 5 ML (15:00)
[2024-04-29] MEDS: BUPIVACAINE 0.25% 10ML INJ 25 MG IJ (15:00)
[2024-04-29] MEDS: methylPREDNISolone ACETATE 80MG/ML VIAL 80 MG (15:00)
== END 2024-04-29 14:35 | disposition home or self-care (01) ==
PROVIDERS: PCP Physician Assistant; Visit Provider Nurse Anesthetist, Certified Registered
DX: M47.816 Spondylosis without myelopathy or radiculopathy, lumbar region (principal); M51.36 Other intervertebral disc degeneration, lumbar region
CPT/HCPCS: 64493; 64494; J1010

== ENCOUNTER 2024-06-05 14:55 | Outpatient (POV) | payer MEDICAID, SELFPAY ==
--- NOTE | 2024-06-05 15:40 | A.OFFVIS_ITS ---
[facility] Disclaimer: The information contained in this section may have been updated after the patient was seen, as this information can be updated by other users. Medical History Thyroiditis Diastolic dysfunction Thyroid disease History of gastroesophageal reflux (GERD) Atypical chest pain Bigeminy PAC (premature atrial contraction) Generalized anxiety disorder Recurrent major depression resistant to treatment Dysphagia An EGD was done. Noted that her gastric sleeve was somewhat expanded. She also had dilatation done on her esophagus. Recommended repeat in approximately 3 years. Thyroiditis She also has hypothyroidism likely related to this. With her elevated TSH, I am going to increase her levothyroxine dose and recheck her levels. Metabolic syndrome Pre-diabetes Bilateral foot pain Abnormal weight Urinary incontinence Vitamin D deficiency Hypothyroidism Low back pain Knee pain Hyperlipidemia Hypertension Surgical History Status post gastric banding surgery 07/23/18 Family History Other No significant family history Social History Smoking Status: Former smoker tobacco type: cigarettes packs per day: 1 second hand exposure: No alcohol intake: never substance use type: denies use current occupational status: unemployed Travel in the last 8 weeks: None household members: spouse housing: house number of children: 2 current occupational exposures/hazards: No caffeine: Yes PM Subjective & Objective Subjective Subjective:: Patient is a pleasant 59-year-old female who presents today for follow up of her first lumbar medial branch blocks bilaterally L3-L4 and L4-L5 on 04/29/2024. Today she rates her pain a 5 out of 10. Patient states that she did have at least 80% improvement following this injection and felt like it is really worked well up until about the last week. Patient states she did have improved function and was able to do more activity such as housecleaning and simple walking. Patient does state today that she is going back towards her baseline today and states the pain is a chronic aching sensation and denies any radiating symptoms into her legs. Patient states she has continued to do at home stretching exercise with minimal relief. Patient does state that she is in terested in repeating her prior injection. Patient does state that she is starting to have more pain that is interfering with her activities of daily living such as cooking and cleaning. Patient is currently managed with tramadol 50 mg twice a day with a 2-week dose at her last visit. She does state that that did really help. She is also managed with Lyrica 75 mg twice a day and Flexeril 10 mg. She denies any side effects from these medications. She states the muscle relaxer as needed and states she does not need any pain medicine refills. Her Edwin has been reviewed and is appropriate. Review of Systems: General: No recent weight changes, no fever, no sleep disturbances Respiratory: No cough, no shortness of air, no recurring pulmonary infections Cardiovascular/peripheral vascular: No chest pain, no palpitations, no edema, no shortness of breath Gastrointestinal: No new onset incontinence, normal bowel movements reported Genitourinary: No new onset incontinence Musculoskeletal: Low back pain Psychiatric: [Normal mood/affect] Neurological: [Denies weakness in extremities], [denies balance issues] Pain at rest (0-10 scale): 5 Objective Objective:: Physical Exam: General: Alert and oriented x3, no acute distress, pleasant and cooperative Lungs: Respirations even and unlabored, symmetrical chest expansion Eyes: PERRL Musculoskeletal: Flexion and extension of lumbar [spine] somewhat guarded secondary to pain, [antalgic gait noted] positive Kemps test Neurological: Speech clear, no gross sensory deficit Has patient had previous pain injection?: Yes Percent improvement in pain since last injection: 80% Conservative treatment options previously tried: Home exercise plan Length of treatment: Longer than 6 weeks Meds Home Medications and Allergies Home Medications ?Medication ?Instructions ?Recorded ?Confirmed ?Type omeprazole 20 mg capsule,delayed 20 mg PO DAILY 07/16/23 04/29/24 History release amitriptyline 25 mg tablet See Rx Instructions .Route 10/16/23 04/29/24 Rx .COMPLEX #30 tabs oxybutynin chloride 10 mg See Rx Instructions .Route 10/16/23 04/29/24 Rx tablet,extended release 24 hr .COMPLEX #30 tabs ergocalciferol (vitamin D2) 1,250 See Rx Instructions .Route 12/28/23 04/29/24 Rx mcg (50,000 unit) capsule .COMPLEX #14 caps baclofen 5 mg tablet 5 mg PO TID PRN muscle spasm #42 04/10/24 04/29/24 Rx tabs ondansetron 4 mg disintegrating 4 mg PO DIRECTED Nausea 04/10/24 04/29/24 History tablet pregabalin 75 mg capsule 75 mg PO BID . #60 caps 04/10/24 04/29/24 Rx tramadol 50 mg tablet 50 mg PO BID PRN pain #28 tabs 04/10/24 04/29/24 Rx ferrous sulfate 142 mg (45 mg See Rx Instructions .Route 04/29/24 04/29/24 Rx iron) tablet,extended release .COMPLEX #30 tabs (Slow Release Iron) levothyroxine 175 mcg tablet See Rx Instructions .Route 04/29/24 04/29/24 Rx .COMPLEX #30 tabs cyclobenzaprine 10 mg tablet See Rx Instructions .Route 05/09/24 Rx .COMPLEX #30 tabs atorvastatin 10 mg tablet See Rx Instructions .Route 05/27/24 Rx .COMPLEX #30 tabs bupropion HCl 150 mg 24 hr tablet, See Rx Instructions .Route 05/27/24 Rx extended release .COMPLEX #30 tabs buspirone 10 mg tablet See Rx Instructions .Route 05/27/24 Rx .COMPLEX #60 tabs cariprazine 3 mg capsule (Vraylar) See Rx Instructions .Route 05/27/24 Rx .COMPLEX #30 caps duloxetine 60 mg capsule,delayed See Rx Instructions .Route 05/27/24 Rx release .COMPLEX #30 caps lisinopril 10 See Rx Instructions .Route 05/27/24 Rx mg-hydrochlorothiazide 12.5 mg .COMPLEX #30 tabs tablet naltrexone 50 mg tablet See Rx Instructions .Route 05/27/24 Rx .COMPLEX #30 tabs trazodone 50 mg tablet See Rx Instructions .Route 05/27/24 Rx .COMPLEX #30 tabs New Prescriptions to Start Prescriptions: Allergies Allergy/AdvReac Type Severity Reaction Status Date / Time adhesive tape Allergy Verified 02/27/24 09:31 Assessment and Plan *Assessment and plan (1) Degenerative disc disease, lumbar: Status: Acute Category: Medical Code(s): M51.36 - Other intervertebral disc degeneration, lumbar region (2) Lumbar spondylosis: Status: Acute Category: Medical Code(s): M47.816 - Spondylosis without myelopathy or radiculopathy, lumbar region (3) Lumbar facet arthropathy: Status: Acute Category: Medical Code(s): M47.816 - Spondylosis without myelopathy or radiculopathy, lumbar region Plan Patient is starting to experience worsening pain throughout her low back with limited range of motion of her lumbar spine and a positive Kemps test. Patient did previously have 80% relief with her first lumbar medial branch block lasting approximately 3 weeks or more. Patient was counseled regarding risk and benefits of repeat injection and she would like to proceed forward with this plan of care. Patient has tried and failed conservative therapy including continued at home stretching exercise for longer than 6 weeks. Patient will be scheduled for her second lumbar medial branch block bilaterally L3-L4 and L4-L5 under fluoroscopy.. If she does have significant relief we will plan on proceeding forward with a lumbar RFA at a later date. Patient agrees with plan of care. I will send in a refill of the patient's Flexeril 10 mg 3 times daily and provide a 90-day supply of this medication. I will also make sure that she has updated refills on her Lyrica. Patient has been instructed to contact the clinic with any concerns before the next appointment. Dr. Wallis has reviewed this note and agrees with this plan of care. This note was dictated using voice recognition software and make contain errors or omissions. All injections are used with Lidocaine or Bupivacaine and Depo Medrol.
[2024-06-05 15:50] VITALS: BP 121/66; PULSE 77; RESP 18; O2SAT 97; BMI 36.3
== END 2024-06-05 23:59 | disposition home or self-care (01) ==
PROVIDERS: Visit Provider Nurse Practitioner Family
DX: M51.36 Other intervertebral disc degeneration, lumbar region (principal); M47.816 Spondylosis without myelopathy or radiculopathy, lumbar region; Z96.82 Presence of neurostimulator; Z87.891 Personal history of nicotine dependence; Z73.89 Other problems related to life management difficulty; Z79.899 Other long term (current) drug therapy
CPT/HCPCS: 99212; G0463

== ENCOUNTER 2024-06-24 11:06 | Day surgery (SDC) | payer MEDICAID, SELFPAY ==
[2024-06-24 11:45] VITALS: BP 100/64; BP 120/72; BP 125/68; PULSE 67; PULSE 69; RESP 16; RESP 18; TEMP 36.6; O2SAT 100; O2SAT 98; O2SAT 99; BMI 35.7
[2024-06-24] MEDS: LIDOCAINE 1% 5ML PF VIAL 5 ML (11:47)
[2024-06-24] MEDS: BUPIVACAINE 0.25% 10ML INJ 25 MG IJ (11:47)
[2024-06-24] MEDS: methylPREDNISolone ACETATE 80MG/ML VIAL 80 MG (11:50)
--- NOTE | 2024-06-24 11:54 | P.PCN_ITS ---
Procedure Date: 06/24/24 Time: 11:00 Anesthesiologist:: Nahid Quiroga CRNA Complications:: None Pre-procedure Diagnosis:: Degenerative disc lumbar spine multilevels. Lumbar radiculopathy. Lumbar postlaminectomy syndrome. Multilevel lumbar facet arthropathy. Lumbar spondylosis. Post-procedure Diagnosis:: Same. Indications for Procedure:: Patient is a pleasant 59-year-old female who comes our clinic today for round 2 of lumbar medial branch block at the bilateral L3-4 and L4-5 levels. Patient reports 3 weeks of significant improvement terms of her overall low back pain with previous injection same level. She rates her pain 7/10 today. She describes low back pain as constant, dull, aching. She reports difficulty with lumbar flexion, extension, left and right rotation. Procedure Details:: Informed consent was obtained and the risk and benefits of the procedure was explained to the patient. Patient was taken to the procedure room where noninvasive monitors were placed, including noninvasive blood pressure cuff as well as pulse oximeter. The area over the lumbar spine was cleansed using chlorhexidine as a cleansing solution. I anesthetized the skin and subcutaneous tissues with 1% Lidocaine. I placed 22-gauge spinal needles into the facet joint/ medial branches of [L3-L4, L4-L5 bilaterally. Needle placement was confirmed with fluoroscopy. After confirmation of needle placement, each site was injected with 1 mL of 1% lidocaine and 0.25 % Marcaine and 10 mg of Depo- Medrol. A total of 80 mg of depo medrol was used for bilateral medial branch blocks of [L3-L4, L4-L5 bilaterally. Patient tolerated the procedure without difficulty. There were no complications. Plan and Disposition:: Patient was discharged without incident.
== END 2024-06-24 11:55 | disposition home or self-care (01) ==
PROVIDERS: PCP Physician Assistant; Visit Provider Nurse Anesthetist, Certified Registered
DX: M47.816 Spondylosis without myelopathy or radiculopathy, lumbar region (principal); M51.369 Other intervertebral disc degeneration, lumbar region without mention of lumbar back pain or lower extremity pain; M96.1 Postlaminectomy syndrome, not elsewhere classified
CPT/HCPCS: 64493; 64494; J1010

== ENCOUNTER 2024-07-24 11:27 | Outpatient (CLI) | payer MEDICAID, SELFPAY ==
[2024-07-24 12:33] LABS: Free T4 (Free Thyroxine) 1.42 ng/dl (0.78-2.19)
[2024-07-24 12:46] LABS: Thyroid Stimulating Hormone 1.76 uIU/mL (0.465-4.68)
== END 2024-07-24 23:59 | disposition home or self-care (01) ==
LOC: LAB 11:28
PROVIDERS: PCP Internal Medicine; Visit Provider Nurse Practitioner
DX: E03.9 Hypothyroidism, unspecified (principal)
CPT/HCPCS: 36415; 84439; 84443

== ENCOUNTER 2024-07-28 14:02 | Outpatient (POV) | payer MEDICAID, SELFPAY ==
--- NOTE | 2024-07-28 14:28 | A.OFFVIS_ITS ---
[facility] Disclaimer: The information contained in this section may have been updated after the patient was seen, as this information can be updated by other users. Medical History Thyroiditis Diastolic dysfunction Thyroid disease History of gastroesophageal reflux (GERD) Atypical chest pain Bigeminy PAC (premature atrial contraction) Generalized anxiety disorder Recurrent major depression resistant to treatment Dysphagia An EGD was done. Noted that her gastric sleeve was somewhat expanded. She also had dilatation done on her esophagus. Recommended repeat in approximately 3 years. Thyroiditis She also has hypothyroidism likely related to this. With her elevated TSH, I am going to increase her levothyroxine dose and recheck her levels. Metabolic syndrome Pre-diabetes Bilateral foot pain Abnormal weight Urinary incontinence Vitamin D deficiency Hypothyroidism Low back pain Knee pain Hyperlipidemia Hypertension Surgical History Status post gastric banding surgery 07/23/18 Family History Other No significant family history Social History Smoking Status: Former smoker tobacco type: cigarettes packs per day: 1 second hand exposure: No alcohol intake: never substance use type: denies use current occupational status: unemployed Travel in the last 8 weeks: None household members: spouse housing: house number of children: 2 current occupational exposures/hazards: No caffeine: Yes PM Subjective & Objective Subjective Subjective:: Patient is a pleasant 59-year-old female who presents today for follow-up of her second lumbar medial branch block bilaterally L3-L4 and L4-L5 on 06/24/2024. Today she rates her pain a 2 out of 10. She denies any new trauma or injury. She does state that this injection has provided at least 85% improvement and it is still providing good improvement. Patient states she has been able to move around easier with decreased low back pain overall. She states that she felt like this 1 is done above and beyond the first block. Patient is currently prescribed Flexeril 10 mg 3 times a day and Lyrica 75 mg twice a day. She denies any side effects from this medication. Her Edwin has been reviewed and is appropriate. Review of Systems: General: No recent weight changes, no fever, no sleep disturbances Respiratory: No cough, no shortness of air, no recurring pulmonary infections Cardiovascular/peripheral vascular: No chest pain, no palpitations, no edema, no shortness of breath Gastrointestinal: No new onset incontinence, normal bowel movements reported Genitourinary: No new onset incontinence Musculoskeletal: Low back pain Psychiatric: [Normal mood/affect] Neurological: [Denies weakness in extremities], [denies balance issues] Pain at rest (0-10 scale): 2 Objective Objective:: Physical Exam: General: Alert and oriented x3, no acute distress, pleasant and cooperative Lungs: Respirations even and unlabored, symmetrical chest expansion Eyes: PERRL Musculoskeletal: Flexion and extension of lumbar [spine] somewhat guarded secondary to pain, [antalgic gait noted] Neurological: Speech clear, no gross sensory deficit Has patient had previous pain injection?: Yes Percent improvement in pain since last injection: 85% Conservative treatment options previously tried: Home exercise plan Length of treatment: Longer than 12 weeks Meds Home Medications and Allergies Home Medications ?Medication ?Instructions ?Recorded ?Confirmed ?Type omeprazole 20 mg capsule,delayed 20 mg PO DAILY 07/16/23 06/05/24 History release amitriptyline 25 mg tablet See Rx Instructions .Route 10/16/23 06/05/24 Rx .COMPLEX #30 tabs oxybutynin chloride 10 mg See Rx Instructions .Route 10/16/23 06/05/24 Rx tablet,extended release 24 hr .COMPLEX #30 tabs ergocalciferol (vitamin D2) 1,250 See Rx Instructions .Route 12/28/23 06/05/24 Rx mcg (50,000 unit) capsule .COMPLEX #14 caps baclofen 5 mg tablet 5 mg PO TID PRN muscle spasm #42 04/10/24 06/05/24 Rx tabs ondansetron 4 mg disintegrating 4 mg PO DIRECTED Nausea 04/10/24 06/05/24 History tablet tramadol 50 mg tablet 50 mg PO BID PRN pain #28 tabs 04/10/24 06/05/24 Rx ferrous sulfate 142 mg (45 mg See Rx Instructions .Route 04/29/24 06/05/24 Rx iron) tablet,extended release .COMPLEX #30 tabs (Slow Release Iron) levothyroxine 175 mcg tablet See Rx Instructions .Route 04/29/24 06/05/24 Rx .COMPLEX #30 tabs cyclobenzaprine 10 mg tablet See Rx Instructions .Route 05/09/24 06/05/24 Rx .COMPLEX #30 tabs cariprazine 3 mg capsule (Vraylar) See Rx Instructions .Route 05/27/24 06/05/24 Rx .COMPLEX #30 caps naltrexone 50 mg tablet See Rx Instructions .Route 05/27/24 06/05/24 Rx .COMPLEX #30 tabs cyclobenzaprine 10 mg tablet 10 mg PO TID #270 tabs 06/05/24 Rx pregabalin 75 mg capsule 75 mg PO BID . #180 caps 06/05/24 Rx atorvastatin 10 mg tablet See Rx Instructions .Route 07/24/24 Rx .COMPLEX #90 tabs bupropion HCl 150 mg 24 hr tablet, See Rx Instructions .Route 07/24/24 Rx extended release .COMPLEX #90 tabs buspirone 10 mg tablet See Rx Instructions .Route 07/24/24 Rx .COMPLEX #60 tabs duloxetine 60 mg capsule,delayed See Rx Instructions .Route 07/24/24 Rx release .COMPLEX #30 caps lisinopril 10 See Rx Instructions .Route 07/24/24 Rx mg-hydrochlorothiazide 12.5 mg .COMPLEX #90 tabs tablet trazodone 50 mg tablet See Rx Instructions .Route 07/24/24 Rx .COMPLEX #90 tabs New Prescriptions to Start Prescriptions: Allergies Allergy/AdvReac Type Severity Reaction Status Date / Time adhesive tape Allergy Verified 02/27/24 09:31 Assessment and Plan *Assessment and plan (1) Lumbar facet arthropathy: Status: Acute Category: Medical Code(s): M47.816 - Spondylosis without myelopathy or radiculopathy, lumbar region (2) Lumbar spondylosis: Status: Acute Category: Medical Code(s): M47.816 - Spondylosis without myelopathy or radiculopathy, lumbar region (3) Degenerative disc disease, lumbar: Status: Acute Category: Medical Code(s): M51.36 - Other intervertebral disc degeneration, lumbar region Plan Patient has had significant improvement following her lumbar medial branch block and does not require any additional injection therapy at this time. Patient will return to clinic in 1 month for reevaluation of symptoms and plan of care.patient was given a 90-day supply of her Lyrica and will not need refills until August. Patient has been instructed to contact the clinic with any concerns before the next appointment. Dr. Wallis has reviewed this note and agrees with this plan of care. This note was dictated using voice recognition software and make contain errors or omissions. All injections are used with Lidocaine or Bupivacaine and Depo Medrol.
[2024-07-28 14:56] VITALS: BP 131/74; PULSE 63; RESP 18; O2SAT 100; BMI 36.3
== END 2024-07-28 23:59 | disposition home or self-care (01) ==
PROVIDERS: PCP Internal Medicine; Visit Provider Nurse Practitioner Family
DX: M47.816 Spondylosis without myelopathy or radiculopathy, lumbar region (principal); M51.369 Other intervertebral disc degeneration, lumbar region without mention of lumbar back pain or lower extremity pain; Z87.891 Personal history of nicotine dependence; Z79.899 Other long term (current) drug therapy
CPT/HCPCS: 99212; G0463

== ENCOUNTER 2024-07-29 11:31 | Outpatient (CLI) | payer MEDICAID, SELFPAY ==
[2024-07-29 12:11] LABS: Basophils # 0.1 K/mm3 (0-0.2); Basophils % 1.1 % (0.1-2.0); Eosinophils # 0.3 K/mm3 (0.0-0.4); Eosinophils % 3.9 % (0.1-12.0); Hematocrit 41.7 % (37.0-47.0); Hemoglobin 14.1 g/dL (12.2-16.2); Lymphocytes # 2.3 K/mm3 (0.7-4.5); Lymphocytes % 32.1 % (10-50); Mean Corpuscular HGB Conc 33.8 g/dL (31.8-35.4); Mean Corpuscular Hemoglobin 30.5 pg (27.0-31.2); Mean Corpuscular Volume 90.4 fl (81-99); Mean Platelet Volume 7.2 fl (7.4-10.4); Monocytes # 0.5 K/mm3 (0.1-1.0); Monocytes % 7.4 % (1.7-9.3); Neutrophils % 55.5 % (37.0-80.0); Platelet Count 445 K/mm3 (142-424); Red Blood Count 4.61 M/mm3 (4.20-5.40); Red Cell Distribution Width 13.8 % (11.5-17.5); White Blood Count 7.2 K/mm3 (4.8-10.8)
[2024-07-29 12:20] LABS: Activated Partial Thrombo Time 27.6 seconds (22.8-30.6); INR 0.88 (0.9-1.1)
[2024-07-29 12:22] LABS: Hemoglobin A1C 5.4 % (4.0-6.0)
[2024-07-29 12:28] LABS: Alanine Aminotransferase 20 U/L (12-78); Albumin Level 3.6 g/dl (3.5-5.0); Albumin/Globulin Ratio 1.7 (1.1-1.8); Alkaline Phosphatase 126 U/L (38-126); Anion Gap 8.1 mEq/L (5-15); Aspartate Amino Transferase 23 U/L (14-36); Bilirubin,Total 0.6 mg/dl (0.2-1.3); Blood Urea Nitrogen 5 mg/dl (7-17); Calcium 8.8 mg/dl (8.4-10.2); Carbon Dioxide 32 mmol/L (22.0-30.0); Chloride 95 mmol/L (98-107); Chol/HDL Ratio 1.7 (1-3.5); Cholesterol 172 mg/dl (140-200); Estimated Glomerular Filt Rate 86 ml/min (>60); GFR (African American) 104 ML/MIN (>60); Globulin 2.1 g/dL (1.3-3.2); Glucose 75 mg/dl (74-100); HDL Cholesterol 100 mg/dl (40-60); Potassium 4.1 mmoL/L (3.5-5.1); Sodium 131 mmol/L (136-145); Total Protein,Serum 5.7 g/dl (6.3-8.2); Triglycerides 99 mg/dl (30-150); VLDL Cholesterol 20 mg/dL (0-40)
[2024-07-29 12:40] LABS: Direct LDL Cholesterol 70.67 mg/dL (100-129)
[2024-07-29 13:34] LABS: Vitamin B12 970 pg/mL (239-931)
[2024-07-29 13:35] LABS: Folate > 20.00 ng/mL
[2024-07-29 13:38] LABS: HIV (1&2) Antibody Rapid NONREACTIVE (NONREACTIVE)
[2024-07-30 09:47] LABS: HBsAg Screen Negative (Negative); HCV Ab Non Reactive (Non Reactive); Hep A Ab, IGM Negative (Negative); Hep B Core Ab, IgM Negative (Negative)
== END 2024-07-29 23:59 | disposition home or self-care (01) ==
LOC: LAB 11:32
PROVIDERS: PCP Internal Medicine; Visit Provider Internal Medicine
DX: E03.9 Hypothyroidism, unspecified (principal); R73.03 Prediabetes; I25.118 Atherosclerotic heart disease of native coronary artery with other forms of angina pectoris; E06.9 Thyroiditis, unspecified; E66.9 Obesity, unspecified; Z68.38 Body mass index [BMI] 38.0-38.9, adult; E78.5 Hyperlipidemia, unspecified; I10 Essential (primary) hypertension
CPT/HCPCS: 36415; 80053; 80061; 80074; 82607; 82746; 83036; 85025; 85610; 85730; 87389

== ENCOUNTER 2024-07-31 13:44 | Outpatient (CLI) | payer MEDICAID, SELFPAY ==
--- NOTE | 2024-07-31 13:44 | US_ITS ---
FINAL REPORT CLINICAL HISTORY: FU THYROID-- ABN LABS-- COMPARISON: 02/08/2022 FINDINGS: Sonographic images of the thyroid gland were obtained. The right thyroid lobe measures 29 mm. in length. The left thyroid lobe measures 29 mm. in length. The thyroid isthmus measures 2 mm. The thyroid gland has a heterogeneous echotexture with decreased blood flow. This appears stable compared to the prior exam and may be related to thyroiditis. In the right lobe there is a 5 x 5 x 4 mm, solid, hypoechoic, TR 3 nodule which is new from the prior exam. A calcification is noted in the right lobe. IMPRESSION: Stable, small thyroid which may be related to thyroiditis. New, small right TI-RADS 3 nodule. No follow-up is required. Reviewed, Interpreted and Dictated by Rodolfo Ojeda III, MD Transcribed by Zoraida Archibald Authenticated and [facility]
== END 2024-07-31 23:59 | disposition home or self-care (01) ==
LOC: RAD 13:44
PROVIDERS: PCP Physician Assistant; Visit Provider Nurse Practitioner
DX: E03.9 Hypothyroidism, unspecified (principal)
CPT/HCPCS: 76536

== ENCOUNTER 2024-08-25 09:12 | Outpatient (POV) | payer MEDICAID, SELFPAY ==
[2024-08-25 09:35] VITALS: BP 118/69; PULSE 64; RESP 14; O2SAT 100; BMI 38.9
--- NOTE | 2024-08-25 09:46 | EXP.PAIN.SOA ---
[facility] Disclaimer: The information contained in this section may have been updated after the patient was seen, as this information can be updated by other users. Medical History Thyroiditis Diastolic dysfunction Thyroid disease History of gastroesophageal reflux (GERD) Atypical chest pain Bigeminy PAC (premature atrial contraction) Generalized anxiety disorder Recurrent major depression resistant to treatment Dysphagia An EGD was done. Noted that her gastric sleeve was somewhat expanded. She also had dilatation done on her esophagus. Recommended repeat in approximately 3 years. Thyroiditis She also has hypothyroidism likely related to this. With her elevated TSH, I am going to increase her levothyroxine dose and recheck her levels. Metabolic syndrome Pre-diabetes Bilateral foot pain Abnormal weight Urinary incontinence Vitamin D deficiency Hypothyroidism Low back pain Knee pain Hyperlipidemia Hypertension Surgical History Status post gastric banding surgery 07/23/18 Family History Other No significant family history Social History Smoking Status: Former smoker tobacco type: cigarettes packs per day: 1 second hand exposure: No alcohol intake: never substance use type: denies use current occupational status: unemployed Travel in the last 8 weeks: None household members: spouse housing: house number of children: 2 current occupational exposures/hazards: No caffeine: Yes PM Subjective & Objective Subjective Subjective:: Patient is a pleasant 59-year-old female who presents today for medication refill and follow-up. Today she rates her pain a 5 out of 10. Patient denies any new trauma or injury. Patient does state that her pain has came back. Her low back over the last 2 weeks. She describes it as a constant aching, throbbing sensation that does interfere with her ability to perform activities of daily living such as cooking and cleaning. Patient did previously have her second lumbar medial branch block back on June 24 that did provide 85% improvement only lasted nearly 2 months. Patient does state that she would like to proceed forward with the ablation as the blocks did provide such significant improved function. Patient is currently managed with Flexeril 10 mg 3 times a day and Lyrica 75 mg twice a day. She denies any side effects. Her Edwin has been reviewed and is appropriate. Review of Systems: General: No recent weight changes, no fever, no sleep disturbances Respiratory: No cough, no shortness of air, no recurring pulmonary infections Cardiovascular/peripheral vascular: No chest pain, no palpitations, no edema, no shortness of breath Gastrointestinal: No new onset incontinence, normal bowel movements reported Genitourinary: No new onset incontinence Musculoskeletal: Low back pain Psychiatric: [Normal mood/affect] Neurological: [Denies weakness in extremities], [denies balance issues] Pain at rest (0-10 scale): 5 Objective Objective:: Physical Exam: General: Alert and oriented x3, no acute distress, pleasant and cooperative Lungs: Respirations even and unlabored, symmetrical chest expansion Eyes: PERRL Musculoskeletal: Flexion and extension of lumbar [spine] somewhat guarded secondary to pain, [antalgic gait noted] positive Kemps test Neurological: Speech clear, no gross sensory deficit Has patient had previous pain injection?: No Conservative treatment options previously tried: Home exercise plan Length of treatment: Longer than 12 weeks Meds Home Medications and Allergies Home Medications ?Medication ?Instructions ?Recorded ?Confirmed ?Type ergocalciferol (vitamin D2) 1,250 See Rx Instructions .Route 12/28/23 08/19/24 Rx mcg (50,000 unit) capsule .COMPLEX #14 caps ondansetron 4 mg disintegrating 4 mg PO DIRECTED Nausea 04/10/24 08/19/24 History tablet levothyroxine 175 mcg tablet See Rx Instructions .Route 04/29/24 08/19/24 Rx .COMPLEX #30 tabs cyclobenzaprine 10 mg tablet See Rx Instructions .Route 05/09/24 08/19/24 Rx .COMPLEX #30 tabs pregabalin 75 mg capsule 75 mg PO BID . #180 caps 06/05/24 08/19/24 Rx atorvastatin 10 mg tablet See Rx Instructions .Route 07/24/24 08/19/24 Rx .COMPLEX #90 tabs buspirone 10 mg tablet See Rx Instructions .Route 07/24/24 08/19/24 Rx .COMPLEX #60 tabs lisinopril 10 See Rx Instructions .Route 07/24/24 08/19/24 Rx mg-hydrochlorothiazide 12.5 mg .COMPLEX #90 tabs tablet amitriptyline 25 mg tablet 25 mg PO HS #90 tabs 07/29/24 08/19/24 Rx oxybutynin chloride 10 mg 10 mg PO DAILY #30 tabs 07/29/24 08/19/24 Rx tablet,extended release 24 hr cariprazine 3 mg capsule (Vraylar) See Rx Instructions .Route 07/30/24 08/19/24 Rx .COMPLEX #90 caps duloxetine 60 mg capsule,delayed See Rx Instructions .Route 07/30/24 08/19/24 Rx release .COMPLEX #90 caps famotidine 20 mg tablet mg PO 08/19/24 08/19/24 History New Prescriptions to Start Prescriptions: Allergies Allergy/AdvReac Type Severity Reaction Status Date / Time adhesive tape Allergy Verified 08/19/24 10:36 Assessment and Plan *Assessment and plan (1) Lumbar facet arthropathy: Status: Acute Category: Medical Code(s): M47.816 - Spondylosis without myelopathy or radiculopathy, lumbar region (2) Lumbar spondylosis: Status: Acute Category: Medical Code(s): M47.816 - Spondylosis without myelopathy or radiculopathy, lumbar region Plan Patient is experiencing worsening pain in her low back with limited range of motion of her lumbar spine and a positive Kemps test. Patient did have 2 successful lumbar medial branch blocks with her last 1 being in June 24 that did provide 85% relief and did last nearly 2 months. I did discuss with the patient that I do believe she would benefit from the lumbar RFA. Risk and benefits were discussed with the patient and she would like to proceed forward with this plan of care. Patient has tried and failed conservative therapy including continued at home stretching exercise for longer than 12 weeks. I will also make sure that her Flexeril and Lyrica does have a 3-month supply. Patient will be scheduled for lumbar radiofrequency ablation bilaterally L3-L4 and L4-L5 under fluoroscopy. Patient has been instructed to contact the clinic with any concerns before the next appointment. Dr. Wallis has reviewed this note and agrees with this plan of care. This note was dictated using voice recognition software and make contain errors or omissions. All injections are used with Lidocaine or Bupivacaine and Depo Medrol.
== END 2024-08-25 23:59 | disposition home or self-care (01) ==
PROVIDERS: PCP Internal Medicine; Visit Provider Nurse Practitioner Family
DX: M47.816 Spondylosis without myelopathy or radiculopathy, lumbar region (principal); Z87.891 Personal history of nicotine dependence; Z73.89 Other problems related to life management difficulty
CPT/HCPCS: 99212; G0463

== ENCOUNTER 2024-08-26 11:45 | Outpatient (CLI) | payer MEDICAID, SELFPAY ==
[2024-08-26 13:12] VITALS: BMI 40.2
== END 2024-08-26 23:59 | disposition home or self-care (01) ==
LOC: DIETICIAN 11:46
PROVIDERS: PCP Internal Medicine; Visit Provider Internal Medicine
DX: E66.812 Obesity, class 2 (principal); R73.03 Prediabetes; Z68.38 Body mass index [BMI] 38.0-38.9, adult
CPT/HCPCS: 97802

== ENCOUNTER 2024-09-01 13:55 | Outpatient (CLI) | payer MEDICAID, SELFPAY ==
--- NOTE | 2024-09-01 13:55 | CT_ITS ---
FINAL REPORT CLINICAL HISTORY: lung cancer screening pt quit smoking 6 months ago <1ppd x43 years when smoking COMPARISON: 06/28/2022 FINDINGS: CTDI vol (mGy): 2.90 DLP: 96.[address] images of the chest were obtained using the low-dose protocol for screening. There is no evidence of mediastinal or hilar mass or adenopathy. No axillary mass or adenopathy is identified. There is a 6 mm, pleural-based nodule in the right upper lobe on image 15 which is stable. Faint, lateral right upper lobe nodule on image 30 and 2 mm left lower lobe nodule in the superior segment, image 21 are also stable. There is a new right middle lobe nodule medially on image 38 measuring 10 mm. IMPRESSION: Interval development of 10 mm right upper lobe nodule. Other nodules are stable. Lung RADS category 4B. Recommend PET and 3-month follow-up. Biopsy of this new nodule would be extremely difficult. Reviewed, Interpreted and Dictated by Sam Reyna MD Transcribed by Viky Hawthorne Authenticated and [facility]
== END 2024-09-01 23:59 | disposition home or self-care (01) ==
LOC: RAD 13:55
PROVIDERS: PCP Internal Medicine; Visit Provider Internal Medicine
DX: F17.210 Nicotine dependence, cigarettes, uncomplicated (principal)
CPT/HCPCS: 71271

== ENCOUNTER 2024-09-04 10:45 | Outpatient (CLI) | payer MEDICAID, SELFPAY ==
--- NOTE | 2024-09-04 10:47 | MM_ITS ---
PROCEDURE INFORMATION: Exam: MG Bilateral Screening 3D Mammography Exam date and time: 09/04/2024 10:37 AM Age: 59 years old Clinical indication: Screening exam TECHNIQUE: Imaging protocol: Bilateral Screening tomosynthesis and 2D mammography including computer-aided detection (CAD) when performed. COMPARISON: 1. MG MM DIG SCREENING MAMM BI W/CAD 11/04/2019 10:22 AM 2. MG DMSB DIG MAMM-SCREEN HANG 08/22/2016 10:29 AM FINDINGS: MAMMOGRAPHY: Breast composition: There are scattered areas of fibroglandular density. Mass: No suspicious masses. Architectural distortion: None. Calcifications: No suspicious calcifications. Asymmetric density: None. Skin thickening: None. Axillary adenopathy: None. IMPRESSION: No mammographic evidence of malignancy. Annual screening is recommended unless otherwise clinically indicated. ASSESSMENT: BI-RADS Category 1: Negative.
== END 2024-09-04 23:59 | disposition home or self-care (01) ==
LOC: RAD 10:47
PROVIDERS: PCP Internal Medicine; Visit Provider Internal Medicine
DX: Z12.31 Encounter for screening mammogram for malignant neoplasm of breast (principal)
CPT/HCPCS: 77063; 77067

== ENCOUNTER 2024-10-07 08:43 | Day surgery (SDC) | payer MEDICAID, SELFPAY ==
[2024-10-07 09:06] VITALS: BP 146/67; PULSE 66; RESP 18; TEMP 36.9; O2SAT 99; BMI 36.3
--- NOTE | 2024-10-07 09:19 | P.PCN_ITS ---
Procedure Date: 10/07/24 Time: 09:10 Anesthesiologist:: Nahid Quiroga CRNA Complications:: None Pre-procedure Diagnosis:: Degenerative disc lumbar spine multilevels. Lumbar radiculopathy. Lumbar spondylosis. Multilevel lumbar facet arthropathy. Post-procedure Diagnosis:: Same. Indications for Procedure:: Patient is a very pleasant 59-year-old female comes our clinic today for bilateral lumbar L3-4, L4-5 radiofrequency ablation. Patient responded very well to 2 rounds of medial branch blocks at the same level bilaterally. She describes low lumbar back pain as constant, dull, aching. She reports difficulty with lumbar flexion, extension, left and right rotation. She rates her pain 6/10. Procedure Details:: Procedure Details: Lumbar RFA Informed consent was obtained and the risk and benefits of the procedure was explained to the patient. Patient was placed prone on the procedure table. The patient was prepped and draped in sterile fashion. C-arm fluoroscopy was used to view the lumbar spine. The skin and subcutaneous tissues were anesthetized using lidocaine. I placed 20-gauge RF needles into the facet joints of L3-L4, L4-L5 bilaterally. We underwent sensory stimulation. There is good sensory stimulation at 0.8 V. We underwent motor stimulation. There is no motor stimulation at 2 V. We then anesthetized these levels with lidocaine and Depo- Medrol. I used a total of 40 mg Depo-Medrol for all 3 levels. I then burned all 3 levels of L3-L4, L4-5 bilaterally for 4 minutes at 80 ?C. Patient tolerated the procedure well with no complication. Plan and Disposition:: We will follow-up with this patient in 2 weeks. We will reevaluate her symptoms at that time. Plan and Disposition:: Patient was discharged without incident.
[2024-10-07 09:36] VITALS: BP 139/74; PULSE 61; RESP 18; O2SAT 100
[2024-10-07] MEDS: methylPREDNISolone ACETATE 80MG/ML VIAL 80 MG (09:42)
[2024-10-07] MEDS: LIDOCAINE 1% 5ML PF VIAL 5 ML (09:42)
[2024-10-07] MEDS: BUPIVACAINE 0.25% 10ML INJ 25 MG IJ (09:42)
[2024-10-07 09:43] VITALS: BP 150/73; PULSE 61; RESP 18; O2SAT 99
[2024-10-07 09:44] VITALS: BP 150/73; PULSE 61; RESP 18; O2SAT 99
== END 2024-10-07 09:36 | disposition home or self-care (01) ==
PROVIDERS: PCP Internal Medicine; Visit Provider Nurse Anesthetist, Certified Registered
DX: M47.816 Spondylosis without myelopathy or radiculopathy, lumbar region (principal); M51.16 Intervertebral disc disorders with radiculopathy, lumbar region
CPT/HCPCS: 64635; 64636; J1010

== ENCOUNTER 2024-10-21 13:21 | Outpatient (POV) | payer MEDICAID, SELFPAY ==
--- NOTE | 2024-10-21 13:49 | EXP.PAIN.SOA ---
[facility] Disclaimer: The information contained in this section may have been updated after the patient was seen, as this information can be updated by other users. Medical History Lung nodule Thyroiditis Diastolic dysfunction Thyroid disease History of gastroesophageal reflux (GERD) Atypical chest pain Bigeminy PAC (premature atrial contraction) Generalized anxiety disorder Recurrent major depression resistant to treatment Dysphagia Thyroiditis Metabolic syndrome Pre-diabetes Bilateral foot pain Abnormal weight Urinary incontinence Vitamin D deficiency Hypothyroidism Low back pain Knee pain Hyperlipidemia Hypertension Surgical History Status post gastric banding surgery Family History Other No significant family history Social History Smoking Status: Former smoker tobacco type: cigarettes packs per day: 1 second hand exposure: No alcohol intake: never substance use type: denies use current occupational status: other Travel in the last 8 weeks: None household members: spouse housing: house number of children: 2 current occupational exposures/hazards: No caffeine: Yes PM Subjective & Objective Subjective Subjective:: Patient is a pleasant 59-year-old female who presents today for follow-up of lumbar RFA bilaterally L3-L4 and L4-L5 on 10/07/2024. Today she rates her pain a 4 out of 10. She denies any new trauma or injury. She does state that she has had at least 75% improvement following the RFA and feels like it still working well. Patient does state the last couple weeks she has been having more restless leg like symptoms in her lower calfs. She states that is not every night but it does come and go and she has to actually get up from bed and start walking around to relieve them. Patient does state that she has recently had a 10 mm cyst of some sort found on her lungs and she is going for a PET scan in [place] coming up. Patient is currently managed with pregabalin 75 mg twice daily. She denies any side effects from this medication. Her Edwin has been reviewed and is appropriate. Review of Systems: General: No recent weight changes, no fever, no sleep disturbances Respiratory: No cough, no shortness of air, no recurring pulmonary infections Cardiovascular/peripheral vascular: No chest pain, no palpitations, no edema, no shortness of breath Gastrointestinal: No new onset incontinence, normal bowel movements reported Genitourinary: No new onset incontinence Musculoskeletal: Low back pain Psychiatric: [Normal mood/affect] Neurological: [Denies weakness in extremities], [denies balance issues] Pain at rest (0-10 scale): 4 Objective Objective:: Physical Exam: General: Alert and oriented x3, no acute distress, pleasant and cooperative Lungs: Respirations even and unlabored, symmetrical chest expansion Eyes: PERRL Musculoskeletal: Flexion and extension of lumbar [spine] somewhat guarded secondary to pain, [antalgic gait noted] Neurological: Speech clear, no gross sensory deficit Has patient had previous pain injection?: Yes Percent improvement in pain since last injection: 75% Conservative treatment options previously tried: Home exercise plan Length of treatment: Longer than 12 weeks Meds Home Medications and Allergies Home Medications ?Medication ?Instructions ?Recorded ?Confirmed ?Type ergocalciferol (vitamin D2) 1,250 See Rx Instructions .Route 12/28/23 10/21/24 Rx mcg (50,000 unit) capsule .COMPLEX #14 caps ondansetron 4 mg disintegrating 4 mg PO DIRECTED Nausea 04/10/24 10/21/24 History tablet levothyroxine 175 mcg tablet See Rx Instructions .Route 04/29/24 10/21/24 Rx .COMPLEX #30 tabs atorvastatin 10 mg tablet See Rx Instructions .Route 07/24/24 10/21/24 Rx .COMPLEX #90 tabs buspirone 10 mg tablet See Rx Instructions .Route 07/24/24 10/21/24 Rx .COMPLEX #60 tabs lisinopril 10 See Rx Instructions .Route 07/24/24 10/21/24 Rx mg-hydrochlorothiazide 12.5 mg .COMPLEX #90 tabs tablet amitriptyline 25 mg tablet 25 mg PO HS #90 tabs 07/29/24 10/21/24 Rx oxybutynin chloride 10 mg 10 mg PO DAILY #30 tabs 07/29/24 10/21/24 Rx tablet,extended release 24 hr cariprazine 3 mg capsule (Vraylar) See Rx Instructions .Route 07/30/24 10/21/24 Rx .COMPLEX #90 caps duloxetine 60 mg capsule,delayed See Rx Instructions .Route 07/30/24 10/21/24 Rx release .COMPLEX #90 caps famotidine 20 mg tablet 10 mg PO DIRECTED 08/19/24 10/21/24 History cyclobenzaprine 10 mg tablet See Rx Instructions .Route 08/25/24 10/21/24 Rx .COMPLEX #30 tabs pregabalin 75 mg capsule 75 mg PO BID . #180 caps 08/25/24 10/21/24 Rx New Prescriptions to Start Prescriptions: Allergies Allergy/AdvReac Type Severity Reaction Status Date / Time adhesive tape Allergy Verified 08/19/24 10:36 Assessment and Plan *Assessment and plan (1) Degenerative disc disease, lumbar: Status: Acute Qualifiers: Disc-related pain type: discogenic back pain and lower extremity pain Qualified Code(s): M51.362 - Other intervertebral disc degeneration, lumbar region with discogenic back pain and lower extremity pain Category: Medical Code(s): M51.369 - Other intervertebral disc degeneration, lumbar region without mention of lumbar back pain or lower extremity pain (2) Lumbar spondylosis: Status: Acute Category: Medical Code(s): M47.816 - Spondylosis without myelopathy or radiculopathy, lumbar region (3) Lumbar facet arthropathy: Status: Acute Category: Medical Code(s): M47.816 - Spondylosis without myelopathy or radiculopathy, lumbar region Plan I will verify and make sure that she does have refills on her pregabalin with the 3-month supply. I will also send in a new prescription of ropinirole 0.25 mg at bedtime. Patient will return to clinic in 3 months. Patient has been instructed to contact the clinic with any concerns before the next appointment. Dr. Wallis has reviewed this note and agrees with this plan of care. This note was dictated using voice recognition software and make contain errors or omissions. All injections are used with Lidocaine, Bupivacaine and Depo Medrol. Occasionally urine drug screen is needed to verify patient's compliance with our office pain contract. This is ordered based off specific treatments related to chronic pain with the potential to abuse certain medications.
[2024-10-21 14:11] VITALS: BP 136/77; PULSE 70; RESP 16; O2SAT 100; BMI 37.2
== END 2024-10-21 23:59 | disposition home or self-care (01) ==
PROVIDERS: PCP Internal Medicine; Visit Provider Nurse Practitioner Family
DX: M51.362 Other intervertebral disc degeneration, lumbar region with discogenic back pain and lower extremity pain (principal); M47.816 Spondylosis without myelopathy or radiculopathy, lumbar region; Z87.891 Personal history of nicotine dependence
CPT/HCPCS: 99212; G0463

== ENCOUNTER 2024-10-28 10:25 | Outpatient (CLI) | payer MEDICAID, SELFPAY ==
[2024-10-28 17:58] LABS: Microscopic, Urine URINE MICROSCOPIC (MICROSCOPIC)
[2024-10-28 18:05] LABS: Appearance,Urine CLEAR (Clear); Bilirubin,Urine Negative (Negative); Blood, Urine Negative (Negative); Color,Urine YELLOW (Yellow); Glucose,Urine (UA) Negative (Negative); Ketones,Urine Negative (Negative); Leukocyte Esterase,Urine TRACE (Negative); Nitrate,Urine Negative (Negative); Protein,Urine Negative (Negative); Urobilinogen,Urine 0.2 EU/dl (0.2)
[2024-10-28 18:40] LABS: Bacteria,Urine 2+ /lpf; RBC,Urine Occasional #/hpf (0-3); Yeast,Urine Occasional /lpf
[2024-10-28 19:42] LABS: Albumin Level 3.8 g/dl (3.5-5.0); Chloride 96 mmol/L (98-107); Potassium 4.5 mmoL/L (3.5-5.1); Sodium 129 mmol/L (136-145)
[2024-10-28 19:44] LABS: Blood Urea Nitrogen 9 mg/dl (7-17)
[2024-10-28 19:45] LABS: Alanine Aminotransferase 25 U/L (12-78); Albumin/Globulin Ratio 1.7 (1.1-1.8); Alkaline Phosphatase 140 U/L (38-126); Anion Gap 9.5 mEq/L (5-15); Aspartate Amino Transferase 29 U/L (14-36); Bilirubin,Total 0.2 mg/dl (0.2-1.3); Calcium 9.1 mg/dl (8.4-10.2); Carbon Dioxide 28 mmol/L (22.0-30.0); Estimated Glomerular Filt Rate 86 ml/min (>60); GFR (African American) 104 ML/MIN (>60); Globulin 2.3 g/dL (1.3-3.2); Glucose 88 mg/dl (74-100); Total Protein,Serum 6.1 g/dl (6.3-8.2)
[2024-10-31 03:36] LABS: Osmolality, Urine 232 mOsmol/kg (.)
== END 2024-10-28 23:59 | disposition home or self-care (01) ==
LOC: LAB.DROPOF 10-29 09:34
PROVIDERS: PCP Internal Medicine; Visit Provider Internal Medicine
DX: R73.03 Prediabetes (principal); E87.1 Hypo-osmolality and hyponatremia; R91.1 Solitary pulmonary nodule; D75.839 Thrombocytosis, unspecified; F17.201 Nicotine dependence, unspecified, in remission; M47.816 Spondylosis without myelopathy or radiculopathy, lumbar region; E66.812 Obesity, class 2; Z68.38 Body mass index [BMI] 38.0-38.9, adult; E03.9 Hypothyroidism, unspecified; I25.118 Atherosclerotic heart disease of native coronary artery with other forms of angina pectoris; F41.1 Generalized anxiety disorder; E55.9 Vitamin D deficiency, unspecified; E78.5 Hyperlipidemia, unspecified; I10 Essential (primary) hypertension
CPT/HCPCS: 80053; 81001; 83935; 84540; 87086

== ENCOUNTER 2024-10-29 08:36 | Outpatient (POV) | payer MEDICAID, SELFPAY ==
--- NOTE | 2024-10-29 09:05 | EXP.PAIN.SOA ---
[facility] Disclaimer: The information contained in this section may have been updated after the patient was seen, as this information can be updated by other users. Medical History Lung nodule Thyroiditis Diastolic dysfunction Thyroid disease History of gastroesophageal reflux (GERD) Atypical chest pain Bigeminy PAC (premature atrial contraction) Generalized anxiety disorder Recurrent major depression resistant to treatment Dysphagia An EGD was done. Noted that her gastric sleeve was somewhat expanded. She also had dilatation done on her esophagus. Recommended repeat in approximately 3 years. Thyroiditis She also has hypothyroidism likely related to this. With her elevated TSH, I am going to increase her levothyroxine dose and recheck her levels. Metabolic syndrome Pre-diabetes Bilateral foot pain Abnormal weight Urinary incontinence Vitamin D deficiency Hypothyroidism Low back pain Knee pain Hyperlipidemia Hypertension Surgical History Status post gastric banding surgery 07/23/18 Family History Other No significant family history Social History (Updated 10/28/24 @ 09:56 by Sneha Muñzi MA) Smoking Status: Current every day smoker tobacco type: e-cigarettes second hand exposure: No alcohol intake: never substance use type: denies use current occupational status: other Travel in the last 8 weeks: None household members: spouse housing: house number of children: 2 current occupational exposures/hazards: No caffeine: Yes PM Subjective & Objective Subjective Subjective:: Patient is a pleasant 59-year-old female who presents today for worsening low back and hip pain. Patient states that it just really seem to flareup over the weekend and has progressively worsened since. She states is worse with prolonged positioning or any type of increased activity or walking. She states it is like a pinching sensation. Patient has difficulty with long car rides or prolonged positioning. She does state the pain is interfering with her ability perform activities of daily living such as cooking and cleaning. Patient has had similar pain in the past however states it has been a while. Patient states she did not have any falls or injuries. She states that she questions if she slept funny. Patient does state that she has had the PET scan but she does not know the results. Patient is currently managed with pregabalin 75 mg twice a day. She denies any side effects. Her Edwin has been reviewed and is appropriate. Review of Systems: General: No recent weight changes, no fever, no sleep disturbances Respiratory: No cough, no shortness of air, no recurring pulmonary infections Cardiovascular/peripheral vascular: No chest pain, no palpitations, no edema, no shortness of breath Gastrointestinal: No new onset incontinence, normal bowel movements reported Genitourinary: No new onset incontinence Musculoskeletal: Low back pain, bilateral hip pain Psychiatric: [Normal mood/affect] Neurological: [Denies weakness in extremities], [denies balance issues] Pain at rest (0-10 scale): 7 Objective Objective:: Physical Exam: General: Alert and oriented x3, no acute distress, pleasant and cooperative Lungs: Respirations even and unlabored, symmetrical chest expansion Eyes: PERRL Musculoskeletal: Flexion and extension of lumbar [spine] somewhat guarded secondary to pain, [antalgic gait noted] point tenderness along bilateral SIs with positive bilateral Ellen's, James's, Gaenslen's, compression and distraction exam Neurological: Speech clear, no gross sensory deficit Has patient had previous pain injection?: No Conservative treatment options previously tried: Home exercise plan Length of treatment: Longer than 12 weeks Meds Home Medications and Allergies Home Medications ?Medication ?Instructions ?Recorded ?Confirmed ?Type ergocalciferol (vitamin D2) 1,250 See Rx Instructions .Route 12/28/23 10/28/24 Rx mcg (50,000 unit) capsule .COMPLEX #14 caps ondansetron 4 mg disintegrating 4 mg PO DIRECTED Nausea 04/10/24 10/28/24 History tablet levothyroxine 175 mcg tablet See Rx Instructions .Route 04/29/24 10/28/24 Rx .COMPLEX #30 tabs amitriptyline 25 mg tablet 25 mg PO HS #90 tabs 07/29/24 10/28/24 Rx cariprazine 3 mg capsule (Vraylar) See Rx Instructions .Route 07/30/24 10/28/24 Rx .COMPLEX #90 caps duloxetine 60 mg capsule,delayed See Rx Instructions .Route 07/30/24 10/28/24 Rx release .COMPLEX #90 caps famotidine 20 mg tablet 10 mg PO DIRECTED 08/19/24 10/28/24 History cyclobenzaprine 10 mg tablet See Rx Instructions .Route 08/25/24 10/28/24 Rx .COMPLEX #30 tabs pregabalin 75 mg capsule 75 mg PO BID . #180 caps 10/21/24 10/28/24 Rx ropinirole 0.25 mg tablet 0.25 mg PO HS #14 tabs 10/21/24 10/28/24 Rx atorvastatin 10 mg tablet See Rx Instructions .Route 10/22/24 10/28/24 Rx .COMPLEX #90 tabs oxybutynin chloride 10 mg See Rx Instructions .Route 10/22/24 10/28/24 Rx tablet,extended release 24 hr .COMPLEX #90 tabs amlodipine 2.5 mg tablet 2.5 mg PO DAILY #30 tabs 10/28/24 10/28/24 Rx buspirone 10 mg tablet 10 mg PO TID 60 days #180 tabs 10/28/24 10/28/24 Rx lisinopril 10 mg tablet 10 mg PO DAILY 90 days #90 tabs 10/28/24 10/28/24 Rx varenicline tartrate 0.5 mg (11)-1 See Rx Instructions PO PER PKG DIR 10/28/24 10/28/24 Rx mg (42) tablets in a dose pack #53 tabs (Chantix Starting Month Box) New Prescriptions to Start Prescriptions: Allergies Allergy/AdvReac Type Severity Reaction Status Date / Time adhesive tape Allergy Verified 10/28/24 09:54 Assessment and Plan *Assessment and plan (1) Bilateral sacroiliitis: Status: Acute Category: Medical Code(s): M46.1 - Sacroiliitis, not elsewhere classified Plan Patient is experiencing worsening pain along the low back and bilateral hips. They did have limited range of motion of the lumbar spine along with point tenderness along bilateral SI joints and a positive bilateral Ellen's, James's, Gaenslen's, compression and distraction exam. I did discuss with the patient that I do believe they would benefit from bilateral SI injections. Risk and benefits were discussed with the patient and they would like to proceed forward with this option. Patient has tried and failed conservative therapy including continued at home stretching exercise for longer than 12 weeks. Patient has had a longstanding history of sacroiliitis for longer than 3 years. Patient has not had any recent flareups. Patient's last SI injection was back in December 2020 that did provide more than 80% relief and she does state that she felt like it did help for months if not longer. Patient states she does not recall having this pain flareup like this since that injection. Patient will be scheduled for bilateral SI injections under fluoroscopy. I will also send in a 5-day dose of prednisone 20 mg twice daily. Patient has been instructed to contact the clinic with any concerns before the next appointment. Dr. Wallis has reviewed this note and agrees with this plan of care. This note was dictated using voice recognition software and make contain errors or omissions. All injections are used with Lidocaine or Bupivacaine and Depo Medrol.
[2024-10-29 09:11] VITALS: BP 129/88; PULSE 73; RESP 14; O2SAT 99; BMI 38.9
== END 2024-10-29 23:59 | disposition home or self-care (01) ==
PROVIDERS: PCP Internal Medicine; Visit Provider Nurse Practitioner Family
DX: M46.1 Sacroiliitis, not elsewhere classified (principal); U07.0 Vaping-related disorder; Z73.89 Other problems related to life management difficulty
CPT/HCPCS: 99212; G0463

== ENCOUNTER 2024-11-07 13:34 | Outpatient (CLI) | payer MEDICAID, SELFPAY ==
[2024-11-07 14:19] LABS: Basophils # 0.1 K/mm3 (0-0.2); Basophils % 0.7 % (0.1-2.0); Eosinophils # 0.2 K/mm3 (0.0-0.4); Eosinophils % 2.4 % (0.1-12.0); Hematocrit 41.1 % (37.0-47.0); Hemoglobin 13.5 g/dL (12.2-16.2); Lymphocytes # 1.9 K/mm3 (0.7-4.5); Lymphocytes % 23.6 % (10-50); Mean Corpuscular HGB Conc 32.8 g/dL (31.8-35.4); Mean Corpuscular Hemoglobin 30.3 pg (27.0-31.2); Mean Corpuscular Volume 92.2 fl (81-99); Monocytes # 0.5 K/mm3 (0.1-1.0); Monocytes % 6.6 % (1.7-9.3); Neutrophils # 5.4 K/mm3 (1.8-7.8); Neutrophils % 66.2 % (37.0-80.0); Platelet Count 371 K/mm3 (142-424); Red Blood Count 4.46 M/mm3 (4.20-5.40); Red Cell Distribution Width 13.2 % (11.5-17.5); White Blood Count 8.2 K/mm3 (4.8-10.8)
[2024-11-07 14:55] LABS: Free T4 (Free Thyroxine) 1.02 ng/dl (0.78-2.19)
[2024-11-07 15:09] LABS: Thyroid Stimulating Hormone 9.22 uIU/mL (0.465-4.68)
== END 2024-11-07 23:59 | disposition home or self-care (01) ==
LOC: LAB 13:34
PROVIDERS: Nurse Practitioner; PCP Internal Medicine; Visit Provider Internal Medicine Medical Oncology
DX: E03.9 Hypothyroidism, unspecified (principal); D75.839 Thrombocytosis, unspecified
CPT/HCPCS: 36415; 84439; 84443; 85025

== ENCOUNTER → 2024-11-18 19:49 | Outpatient (CLI) | payer MEDICAID, SELFPAY | LOC: SL 19:51 | PROVIDERS: PCP Internal Medicine; Visit Provider Internal Medicine | DX: G47.33 Obstructive sleep apnea (adult) (pediatric) (principal); E66.812 Obesity, class 2; Z68.33 Body mass index [BMI] 33.0-33.9, adult | CPT/HCPCS: 95810 ==

== ENCOUNTER 2024-11-19 11:35 | Outpatient (CLI) | payer MEDICAID, SELFPAY ==
[2024-11-20 01:14] LABS: Albumin Level 3.7 g/dl (3.5-5.0); Chloride 105 mmol/L (98-107); Potassium 4.1 mmoL/L (3.5-5.1); Sodium 136 mmol/L (136-145)
[2024-11-20 01:17] LABS: Alanine Aminotransferase 23 U/L (12-78); Albumin/Globulin Ratio 1.8 (1.1-1.8); Alkaline Phosphatase 142 U/L (38-126); Anion Gap 6.1 mEq/L (5-15); Aspartate Amino Transferase 24 U/L (14-36); Bilirubin,Total 0.3 mg/dl (0.2-1.3); Blood Urea Nitrogen 9 mg/dl (7-17); Calcium 8.7 mg/dl (8.4-10.2); Carbon Dioxide 29 mmol/L (22.0-30.0); Estimated Glomerular Filt Rate 64 ml/min (>60); GFR (African American) 78 ML/MIN (>60); Globulin 2.1 g/dL (1.3-3.2); Glucose 73 mg/dl (74-100); Total Protein,Serum 5.8 g/dl (6.3-8.2)
== END 2024-11-19 23:59 | disposition home or self-care (01) ==
LOC: LAB.DROPOF 11-20 10:49
PROVIDERS: PCP Internal Medicine; Visit Provider Internal Medicine
DX: E87.1 Hypo-osmolality and hyponatremia (principal); M79.89 Other specified soft tissue disorders
CPT/HCPCS: 80053

== ENCOUNTER 2024-11-27 07:38 | Outpatient (CLI) | payer MEDICAID, SELFPAY ==
--- NOTE | 2024-11-27 07:39 | US_ITS ---
FINAL REPORT CLINICAL HISTORY: claudication FINDINGS: ANKLE-BRACHIAL PRESSURE INDICES Pressure indices are as follows: RIGHT LOWER EXTREMITY: Ankle-brachial pressure index: 1.07 Comments: Normal LEFT LOWER EXTREMITY: Ankle-brachial pressure index: 1.06 Comments: Normal IMPRESSION: No evidence of significant obstructive peripheral vascular disease of the lower extremities Reviewed, Interpreted and Dictated by Rudy Wilson MD Transcribed by Nery Durán Authenticated and [facility]
[2024-11-27] MEDS: REGADENOSON 0.4MG/5ML SYRINGE 0.4 MG IV (10:12)
[2024-11-27] MEDS: ISOTOPE MYOVIEW (PER STUDY) 1 DOSE IV (10:12)
[2024-11-27] MEDS: SODIUM CHLORIDE 0.9% 10ML SYR (RAD ONLY) 10 ML IV ×2 (10:12)
== END 2024-11-27 23:59 | disposition home or self-care (01) ==
LOC: RAD 07:39
PROVIDERS: PCP Internal Medicine; Visit Provider Nurse Practitioner
DX: R07.89 Other chest pain (principal); I20.9 Angina pectoris, unspecified
CPT/HCPCS: 78452; 93017; 93018; 93306; 93923; A9502; J2785

== ENCOUNTER 2024-12-09 09:28 | Day surgery (SDC) | payer MEDICAID, SELFPAY ==
[2024-12-09 09:33] VITALS: BP 124/65; PULSE 64; RESP 16; TEMP 36.9; O2SAT 97; BMI 40.7
[2024-12-09] MEDS: methylPREDNISolone ACETATE 80MG/ML VIAL 80 MG (09:40)
[2024-12-09 09:41] VITALS: BP 141/78; PULSE 72; RESP 18; O2SAT 100
[2024-12-09] MEDS: BUPIVACAINE 0.25% 10ML INJ 25 MG IJ (09:41)
[2024-12-09] MEDS: LIDOCAINE 1% 5ML PF VIAL 5 ML (09:41)
[2024-12-09 09:42] VITALS: BP 141/78; PULSE 72; RESP 18; O2SAT 100
[2024-12-09 09:45] VITALS: BP 138/82; PULSE 74; RESP 16; O2SAT 98
--- NOTE | 2024-12-09 10:10 | P.PCN_ITS ---
Procedure Date: 12/09/24 Time: 09:30 Anesthesiologist:: Nahid Quiroga CRNA Complications:: None Pre-procedure Diagnosis:: Degenerative disc lumbar spine multilevels. Lumbar radiculopathy. Post-procedure Diagnosis:: Same. Indications for Procedure:: Patient is a very pleasant 59-year-old female comes our clinic today for bilateral sacroiliac joint injections of cortisone and local anesthetic. She describes low lumbar back pain off the midline bilaterally. Bilateral posterior hip pain. Difficulty transitioning from sitting to standing. Difficulty with ambulation. She rates her pain 7/10. Procedure Details:: Procedure: Bilateral sacroiliac joint injections under fluoroscopy Informed consent was obtained and the risks and benefits of the procedure were explained to the patient.~ The patient was taken to the procedure room and n oninvasive monitors were placed including a noninvasive blood pressure cuff and pulse oximeter.~ The patient was placed prone on the procedure table. Both hips were cleansed using Betadine as a cleansing solution. C-arm fluoroscopy was used to view the right sacroiliac joint.~ The skin and subcutaneous tissues were anesthetized using lidocaine 1.5% and a 25-gauge needle.~ After this, a 22-gauge spinal needle was inserted under fluoroscopic guidance into the inferior aspect of the right sacroiliac joint.~ Omnipaque dye was injected and good spread was seen throughout the joint.~ After this, approximately 5 mL of bupivacaine, 0.25% and Depo-Medrol, 40 mg was incrementally injected into the right sacroiliac joint. We then moved to the left sacroiliac joint.~ The skin and subcutaneous tissues were anesthetized using lidocaine 1.5% and a 25-gauge needle.~ After this, a 22- gauge spinal needle was inserted under fluoroscopic guidance into the inferior aspect of the left sacroiliac joint.~ Omnipaque dye was injected and good spread was seen throughout the joint. After this, approximately 5 mL of bupivacaine, 0.25% and Depo-Medrol, 40 mg was incrementally injected into the left sacroiliac joint.~ The patient tolerated the procedure well with no complications. The patient was observed in the Pain Clinic and then was discharged home neurologically intact. Plan and Disposition:: Patient was discharged without incident.
== END 2024-12-09 09:45 | disposition home or self-care (01) ==
PROVIDERS: PCP Internal Medicine; Visit Provider Nurse Anesthetist, Certified Registered
DX: M46.1 Sacroiliitis, not elsewhere classified (principal); M51.16 Intervertebral disc disorders with radiculopathy, lumbar region
CPT/HCPCS: 27096; G0260; J1010

== ENCOUNTER 2024-12-11 14:52 | Outpatient (CLI) | payer MEDICAID, SELFPAY ==
[2024-12-11 20:44] LABS: Free T4 (Free Thyroxine) 1.47 ng/dl (0.78-2.19)
[2024-12-11 21:26] LABS: Iron 118 ug/dL (37-170)
[2024-12-11 21:35] LABS: Total Iron Binding Capacity 270 ug/dL (265-497)
[2024-12-11 22:06] LABS: Ferritin 141 ng/ml (11.1-264)
== END 2024-12-11 23:59 | disposition home or self-care (01) ==
LOC: LAB.DROPOF 12-12 10:55
PROVIDERS: PCP Internal Medicine; Visit Provider Internal Medicine
DX: E03.9 Hypothyroidism, unspecified (principal); D50.9 Iron deficiency anemia, unspecified
CPT/HCPCS: 82728; 83540; 83550; 84439; 84443

== ENCOUNTER 2024-12-15 07:00 | Outpatient (CLI) | payer MEDICAID, SELFPAY ==
[2024-12-15 07:22] VITALS: BP 156/75; PULSE 64; RESP 16; TEMP 36.6; O2SAT 100
[2024-12-15 07:33] VITALS: BMI 43.9
[2024-12-15 07:39] VITALS: BP 146/77; PULSE 61; RESP 16; O2SAT 98
[2024-12-15 07:42] VITALS: BP 140/77; PULSE 58; RESP 16; O2SAT 98
[2024-12-15] MEDS: IOPAMIDOL-370 (76%);100ML BOTTLE 85 ML IV (08:10)
[2024-12-15] MEDS: 0.9 % SODIUM CHLORIDE 50 ML VIAL IV (08:10)
[2024-12-15] MEDS: SODIUM CHLORIDE 0.9% 10ML SYR (RAD ONLY) 10 ML IV (08:10)
--- NOTE | 2024-12-15 08:15 | CT_ITS ---
APPROVED REPORT [employer]: CLINICAL INDICATION Chest Pain TECHNIQUE Image Acquisition: A 128 slice MDCT scanner (miCaba View) was used for data acquisition. A noncontrast coronary calcium scan was performed. A CT attenuation threshold of 130 Hounsfield units (HU) was used for the detection of calcium in contiguous voxels of 1 sq mm in area to be counted as individual lesions. Bolus tracking in the ascending aorta with a threshold of 180 HU was performed. Immediately afterwards, ECG synchronized cardiac CT was then performed from the cardiac base to apex using retrospective gating with ECG tube current modulation. A total of 85 mL of Isovue 370 mg/mL contrast medium was administered at 5 mL/sec followed by a saline flush using a biphasic injection protocol. A tube voltage of 120 KVp was used. The patient received the following medications prior to the cardiac CT. 0.8 mg of sublingual nitroglycerin The average heart rate at the time of acquisition was 53 bpm and regular. Image Reconstruction Transaxial images were reconstructed at 0.67 mm slide thickness. Data was reviewed interactively on an advanced workstation capable of 2 and 3-dimensional displays in all conventional reconstruction formats, including multiplanar reformations, maximum intensity projections, curved multiplanar reformations, and volume rendered reconstructions. When applicable, selected routine images describing the relevant coronary anatomy and pathology were saved and sent to PACS. Complications None Technical Quality Overall image quality was good. Coronary artery opacification was adequate. Total DLP (Dose-Length Product) is 1593.8 mGy-cm. The reported value represents the total of one or more individual components during the CT acquisition of this date and at this time, and as such, the same value may appear in more than one CT report depending on the interpreting/reporting physicians. COMPARISON None FINDINGS CT Coronary Calcium Scoring LMA (Left Main Artery) = 8 LAD (Left Anterior Descending) = 142 LCX (Left Coronary Circumflex) = 199 RCA (Right Coronary Artery) = 259 Total Calcium Score = 608 using the AJ-130 method. The observed calcium score of 608 is at 99th percentile for subjects of the same age, sex, and race/ethnicity. The interpretation of the calcium heart score is based on the following continuum*: 0 = no calcified plaque detected (risk of coronary artery disease is very low ??? less than 5%) 1-10 = calcium detected in extremely minimal levels (risk of coronary diseases is still low ??? less than 10%) 11-100 = mild levels of plaque detected with certainty (mild or minimal narrowing of heart arteries is likely) 101-400 = definite,at least moderate levels of plaque detected (relatively high risk of a heart attack within 3-5 years) >401-999 = extensive levels of plaque detected (high risk of heart attack, high levels of vascular disease are present, high likelihood of at least one significant coronary narrowing) *The calcium heart score quantifies the burden of coronary calcification/plaque in the coronary arteries. The calcium heart score is not able to evaluate the presence or burden of non-calcified (i.e. soft) plaque. There is also identifiable calcification in the aortic valve and the ascending and descending thoracic aorta. Coronary CT Angiography The coronary arterial system is right dominant. Quantitative Stenosis Grading: Left Main (LM): The left main originates normally from the left sinus of Valsalva. The LM bifurcates into the left anterior descending artery and left circumflex artery. There is calcified plaque in the LM, with no evidence of luminal stenosis. Left Anterior Descending (LAD) and Diagonal Branches: The LAD gives off 3 diagonal branch(es). There is mixed calcified/noncalcified plaque in the proximal and mid LAD, with up to 50 to 70% luminal stenosis in the proximal segment.. There is no evidence of LAD-myocardial bridge. Left Circumflex (LCX) and Obtuse Marginals (OM): The LCX gives off 1 Obtuse Marginal (OM) branch(es). There is mixed calcified/noncalcified plaque in the proximal LCx, with < 25% luminal stenosis. Right Coronary Artery (RCA): The RCA originates normally from the right sinus of Valsalva. The RCA gives off a posterior descending artery (PDA) and posterolateral (PL) branches. There is mixed calcified/noncalcified plaque in the proximal and mid RCA segments with up to 70-90% luminal stenosis Non-Coronary Cardiac Findings: Analysis of the left ventricular (LV) structure and function was performed after 3-D reconstruction of the LV from axial images, with user-corrected automatic contouring for assessment of LV volumes and user-defined reconstruction from oblique planes for measurement of 3-D cardiac structure and function. -The left ventricle systolic function is normal. -There is no left atrial appendage filling defect. Two right pulmonary veins and two left pulmonary veins drain normally into the left atrium. -No pericardial thickening or calcification. -Central and branch pulmonary arteries in the [id number] are unremarkable. -Thoracic aorta within the visualized thoracic aortic-branches in the [id number] is unremarkable. Extracardiac Structures No significant extra-cardiac findings. Note, however, that this study is focused on the cardiac findings. IMPRESSION -Presence of coronary calcification with an Agatston score = 608 using the AJ-130 method. -The observed calcium score of 608 is at 99th percentile for subjects of the same age, sex, and race/ethnicity. -Multivessel atherosclerotic coronary disease with possible evidence of significant flow-limiting atherosclerosis of the proximal RCA and proximal LAD segments. -CAD-RADS 4A. Management recommendations per ACC/AHA guidelines*, as clinically appropriate. *Recommendations: CAD RADS 0: Reassurance. Consider non-atherosclerotic causes of chest pain. CAD RADS 1: Consider non-atherosclerotic causes of chest pain. Consider preventive therapy and risk factor modification. CAD RADS 2: Consider non-atherosclerotic causes of chest pain. Consider preventive therapy and risk factor modification, particularly for patients with nonobstructive plaque in multiple segments. CAD RADS 3: Consider further functional testing. Consider symptom-guided anti-ischemic and preventive pharmacotherapy as well as risk factor modification per published guideline statements. CAD RADS 4A: Consider further functional testing or invasive coronary angiography with revascularization per published guideline statements. Consider symptom-guided anti-ischemic and preventive pharmacotherapy as well as risk factor modification per published guideline statements. CAD RADS 4B: Invasive coronary angiography recommended with revascularization per published guideline statements. Consider symptom-guided anti-ischemic and preventive pharmacotherapy as well as risk factor modification per published guideline statements. CAD RADS 5: Consider invasive angiography and/or viability assessment with revascularization per published guideline statements. Consider symptom-guided anti-ischemic and preventive pharmacotherapy as well as risk factor modification per published guideline statements. CRITICAL RESULT None COMMUNICATION Per this written report The coronary and cardiac findings of this CCTA were reviewed, reported, and signed by Bi Laguna MD ([employer] Team Member) Conclusion Electronically signed by : Myesha Laguan MD 12/17/2024 12:57:49
== END 2024-12-15 08:03 | disposition home or self-care (01) ==
PROVIDERS: PCP Internal Medicine; Visit Provider Nurse Practitioner
DX: I25.118 Atherosclerotic heart disease of native coronary artery with other forms of angina pectoris (principal); R93.1 Abnormal findings on diagnostic imaging of heart and coronary circulation; R06.09 Other forms of dyspnea; E78.5 Hyperlipidemia, unspecified
CPT/HCPCS: 75574; Q9967

== ENCOUNTER 2024-12-22 13:01 | Outpatient (POV) | payer MEDICAID, SELFPAY ==
--- NOTE | 2024-12-22 13:07 | A.OFFVIS_ITS ---
[facility] Disclaimer: The information contained in this section may have been updated after the patient was seen, as this information can be updated by other users. Medical History Abnormal nuclear cardiac imaging test Obesity Pulmonary emphysema Dyspnea on exertion Lung nodule Thyroiditis Diastolic dysfunction Thyroid disease History of gastroesophageal reflux (GERD) Atypical chest pain Bigeminy PAC (premature atrial contraction) Generalized anxiety disorder Recurrent major depression resistant to treatment Dysphagia An EGD was done. Noted that her gastric sleeve was somewhat expanded. She also had dilatation done on her esophagus. Recommended repeat in approximately 3 years. Thyroiditis She also has hypothyroidism likely related to this. With her elevated TSH, I am going to increase her levothyroxine dose and recheck her levels. Metabolic syndrome Pre-diabetes Bilateral foot pain Abnormal weight Urinary incontinence Vitamin D deficiency Hypothyroidism Low back pain Knee pain Hyperlipidemia Hypertension Surgical History Status post gastric banding surgery 07/23/18 Family History Other No significant family history Social History Smoking Status: Former smoker tobacco type: e-cigarettes second hand exposure: No alcohol intake: never substance use type: denies use current occupational status: other Travel in the last 8 weeks: None household members: spouse housing: house number of children: 2 current occupational exposures/hazards: No caffeine: Yes PM Subjective & Objective Subjective Subjective:: Patient is a pleasant 59-year-old female who presents today for follow-up of bilateral SI injections on 12/09/2024. Today she rates her pain a 4 out of 10. Patient denies any new trauma or injury. Patient states that she did have approximately 80-90 percent improvement following these injections. She states she feels like this is still working well. Patient does state from her last visit she did end up having additional imaging on her lungs and everything was okay with this however she has been having more heart related issues. Patient states that she was having trouble breathing and they have done multiple testing including an echo and a stress test. She states everything overall was pretty good except she did not do well on the stress test. Patient states that she is scheduled for additional follow-up coming up. Patient is managed with pregabalin 75 mg twice a day and compounded cream from our office. She denies any side effects. Patient does also have a [employer] spinal cord stimulator in place that she did just get reprogrammed by representatives last week and states that the programming is working well. Her Edwin has been reviewed and is appropriate. Review of Systems: General: No recent weight changes, no fever, no sleep disturbances Respiratory: No cough, no shortness of air, no recurring pulmonary infections Cardiovascular/peripheral vascular: No chest pain, no palpitations, no edema, no shortness of breath Gastrointestinal: No new onset incontinence, normal bowel movements reported Genitourinary: No new onset incontinence Musculoskeletal: Low back pain Psychiatric: [Normal mood/affect] Neurological: [Denies weakness in extremities], [denies balance issues] Pain at rest (0-10 scale): 4 Objective Objective:: Physical Exam: General: Alert and oriented x3, no acute distress, pleasant and cooperative Lungs: Respirations even and unlabored, symmetrical chest expansion Eyes: PERRL Musculoskeletal: Flexion and extension of lumbar [spine] somewhat guarded secondary to pain, [antalgic gait noted] Neurological: Speech clear, no gross sensory deficit Has patient had previous pain injection?: Yes Percent improvement in pain since last injection: 80-90 Conservative treatment options previously tried: Home exercise plan Length of treatment: Longer than 12 weeks Meds Home Medications and Allergies Home Medications ?Medication ?Instructions ?Recorded ?Confirmed ?Type ergocalciferol (vitamin D2) 1,250 See Rx Instructions .Route 12/28/23 12/18/24 Rx mcg (50,000 unit) capsule .COMPLEX #14 caps cyclobenzaprine 10 mg tablet See Rx Instructions .Route 08/25/24 12/18/24 Rx .COMPLEX #30 tabs atorvastatin 10 mg tablet See Rx Instructions .Route 10/22/24 12/18/24 Rx .COMPLEX #90 tabs oxybutynin chloride 10 mg See Rx Instructions .Route 10/22/24 12/18/24 Rx tablet,extended release 24 hr .COMPLEX #90 tabs lisinopril 10 mg tablet 10 mg PO DAILY 90 days #90 tabs 10/28/24 12/18/24 Rx bupropion HCl 150 mg 24 hr tablet, 150 mg PO DAILY 11/07/24 12/18/24 History extended release pantoprazole 40 mg tablet,delayed 40 mg PO DAILY 11/07/24 12/18/24 History release sucralfate 1 gram tablet 1 g PO . 11/07/24 12/18/24 History albuterol sulfate 90 mcg/actuation 2 inh inhalation QID PRN shortness 11/11/24 12/18/24 Rx aerosol inhaler of breath or wheezing 90 days #8.5 grams levothyroxine 200 mcg capsule 200 mcg PO DAILY #30 caps 11/19/24 12/18/24 Rx varenicline tartrate 0.5 mg (11)-1 See Rx Instructions .Route 11/25/24 12/18/24 Rx mg (42) tablets in a dose pack .COMPLEX #53 tabs furosemide 40 mg tablet 40 mg PO DAILY #90 tabs 12/11/24 12/18/24 Rx amitriptyline 25 mg tablet 25 mg PO HS #90 tabs 12/18/24 12/18/24 Rx buspirone 10 mg tablet 10 mg PO TID 60 days #180 tabs 12/18/24 12/18/24 Rx cariprazine 3 mg capsule (Vraylar) 3 mg PO DAILY #30 caps 12/18/24 12/18/24 Rx duloxetine 60 mg capsule,delayed See Rx Instructions .Route 12/18/24 12/18/24 Rx release .COMPLEX #90 caps pregabalin 75 mg capsule 75 mg PO BID . #180 caps 12/22/24 Rx ropinirole 0.25 mg tablet See Rx Instructions .Route 12/22/24 Rx .COMPLEX #30 tabs New Prescriptions to Start Prescriptions: pregabalin Shazia Murillo A ropinirole Shazia Murillo Allergies Allergy/AdvReac Type Severity Reaction Status Date / Time adhesive tape Allergy Rash Verified 12/18/24 08:25 Assessment and Plan *Assessment and plan (1) Bilateral sacroiliitis: Status: Acute Category: Medical Code(s): M46.1 - Sacroiliitis, not elsewhere classified (2) Degenerative disc disease, lumbar: Status: Acute Qualifiers: Disc-related pain type: discogenic back pain and lower extremity pain Qualified Code(s): M51.362 - Other intervertebral disc degeneration, lumbar region with discogenic back pain and lower extremity pain Category: Medical Code(s): M51.369 - Other intervertebral disc degeneration, lumbar region without mention of lumbar back pain or lower extremity pain Plan Patient has had significant improvement following her SI injections and does not require any additional injection therapy at this time. Patient will follow-up in clinic in 3 months. I will make sure that she does have refills on her pregabalin and ropinirole. Patient has been instructed to contact the clinic with any concerns before the next appointment. Dr. Wallis has reviewed this note and agrees with this plan of care. This note was dictated using voice recognition software and make contain errors or omissions. All injections are used with Lidocaine, Bupivacaine and Depo Medrol. Occasionally urine drug screen is needed to verify patient's compliance with our office pain contract. This is ordered based off specific treatments related to chronic pain with the potential to abuse certain medications.
[2024-12-22 14:19] VITALS: BP 140/85; PULSE 73; RESP 14; O2SAT 96; BMI 41.6
== END 2024-12-22 23:59 | disposition home or self-care (01) ==
PROVIDERS: PCP Internal Medicine; Visit Provider Nurse Practitioner Family
DX: M46.1 Sacroiliitis, not elsewhere classified (principal); M51.362 Other intervertebral disc degeneration, lumbar region with discogenic back pain and lower extremity pain; Z87.891 Personal history of nicotine dependence
CPT/HCPCS: 99212; G0463

== ENCOUNTER 2025-01-15 08:28 | Outpatient (POV) | payer MEDICAID, SELFPAY ==
--- OUTSIDE RECORDS SUMMARY | 2025-01-15 08:30 | XMS_ITS | Data Portability ---
Author Organization [place] [facility] [place] [facility] [place] [facility] AD[facility] Address [address] [place] [id number] Care Team Providers Care Flat Surfacer Jewel Name Role Phone CATERINA FERNANDEZ Primary Care Provider [phone] Assessment Encounter Date Assessment Date Assessment LastModified by Organization Details LastModified Time 11/17/2024 11/17/2024 A total of 10 minutes was spent with the pt today. ??? Recommendations: 1. Start tracking calories and protein with [employer] jessica 2. Aim for 1200 kcal per day and 65+ grams of protein 3. Try making own smoothies/shakes with a ammunition and explosives handler, almond milk, fruit, and protein powder from the tub 4. Add in high protein snacks like cottage cheese dip, yogurt, turkey roll ups, cheese, nuts/seeds, etc. 5. Add in chair exercises 3 days/week 6. Schedule an appt with nurse psychologist at [facility] 7. F/U With RD As needed ??? Pt doing well overall. Addressed concerns today. Pt was reassured at today's visit. Pt verbally agreed to recommendations and goals. Denied further questions/concerns . ??? RDN will monitor weight loss, labs, meds, and lifestyle modifications. Will f/up as scheduled or PRN. [email or web address] Not available 11/17/2024 16:14:49 Plan of Treatment Reminders Order Date Submit Date Provider Last Modified By Organization Details Last Modified Time Details Appointments OV EST 20 2024 08:00A M Hilario Woods, DNP, BINDER FOLDER OPERATOR, BLUNGER-C Not available Not available Not available Lab copper , serum or plasma 2024 025 vilma carranza [facility], [address], [address], [place], [address], 11/24/2024 12:50:10 seleni um, quanti tative , blood 2024 025 [email or web address] s [facility], [address], [address], [place], [address], 11/24/2024 12:50:11 zinc, serum or plasma 2024 025 [email or web address] s [facility], [address], [address], [place], [address], 11/24/2024 12:50:11 vitami n E, serum 2024 025 ahaugrudgrave s [facility], [address], [address], [place], [address], 11/24/2024 12:50:11 vitami n A (retin ol), serum 2024 025 ahaugrudgrave s [facility], [address], [address], [place], [address], 11/24/2024 12:50:11 prealb umin, serum 2024 025 ahaugrudgrave s [facility], [address], [address], [place], [address], 11/24/2024 12:50:11 thiami ne, QN, blood 2024 025 ahaugrudgrave s [facility], [address], [address], [place], [address], 11/24/2024 12:50:11 methyl malona te, QN, serum or plasma 2024 025 ahaugrudgrave s [facility], [address], [address], [place], [address], 11/24/2024 12:50:11 vitami n D, 25-hyd raul, total, serum 2024 025 [facility], [address], [address], [place], [address], 11/24/2024 12:50:11 CBC w/ auto diff 2024 025 [email or web address] s [facility], [address], [address], [place], [address], 11/24/2024 12:50:11 CMP, serum or plasma 2024 025 [facility], [address], [address], [place], [address], 11/24/2024 12:50:11 lipid panel, serum 2024 025 Keniuugrudgrave s [facility], [address], [address], [place], [address], 11/24/2024 12:50:12 HbA1c (hemog lobin A1c), blood 2024 025 [email or web address] s [facility], [address], [address], [place], [address], 11/24/2024 12:50:11 TSH + free T4, serum 2024 025 [facility], [address], [address], [place], [address], 11/24/2024 12:50:12 iron + TIBC + ferrit in, serum 2024 025 ahaugrudgrave s [facility], [address], [address], [place], [address], 11/24/2024 12:50:11 folate , serum 2024 025 ahaugrudgrave s [facility], [address], [address], [place], [address], 11/24/2024 12:50:11 copper , serum or plasma 2023 024 NATHAN [facility], [address], [address], [place], [address], 08/25/2024 14:37:42 seleni um, quanti tative , blood 2023 024 NATHAN [facility], [address], [address], [place], [address], 08/25/2024 14:37:45 zinc, serum or plasma 2023 024 NATHAN [facility], [address], [address], [place], [address], 08/25/2024 14:37:43 vitami n E, serum 2023 024 NATHAN [facility], [address], [address], [place], [address], 08/25/2024 14:37:36 vitami n A (retin ol), serum 2023 024 NATHAN [facility], [address], [address], [place], [address], 08/25/2024 14:37:39 prealb umin, serum 2023 024 NATHAN [facility], [address], [address], [place], [address], 08/25/2024 14:37:44 thiami ne, QN, blood 2023 024 NATHAN [facility], [address], [address], [place], [address], 08/25/2024 14:37:40 methyl malona te, QN, serum or plasma 2023 024 NATHAN [facility], [address], [address], [place], [address], 08/25/2024 14:37:41 vitami n D, 25-hyd raul, total, serum 2023 024 NATHAN [facility], [address], [address], [place], [address], 08/25/2024 14:37:39 lipid panel, serum 2023 024 NATHAN [facility], [address], [address], [place], [address], 08/25/2024 14:37:35 CBC w/ auto diff 2023 024 NATHAN [facility], [address], [address], [place], [address], 08/25/2024 14:37:33 CMP, serum or plasma 2023 024 NATHAN [facility], [address], [address], [place], [address], 08/25/2024 14:37:34 HbA1c (hemog lobin A1c), blood 2023 024 NATHAN [facility], [address], [address], [place], [address], 08/25/2024 14:37:37 TSH + free T4, serum 2023 024 NATHAN [facility], [address], [address], [place], [address], 08/25/2024 14:37:32 iron + TIBC + ferrit in, serum 2023 024 NATHAN [facility], [address], [address], [place], [address], 08/25/2024 14:37:31 folate , serum 2023 024 NATHAN [facility], [address], [address], [place], [address], 08/25/2024 14:37:38 copper , serum or plasma 2023 024 NATHAN [facility], [address], [address], [place], [address], 04/07/2024 12:36:58 seleni um, quanti tative , blood 2023 024 NATHAN [facility], [address], [address], [place], [address], 04/07/2024 12:37:00 zinc, serum or plasma 2023 024 NATHAN [facility], [address], [address], [place], [address], 04/07/2024 12:36:58 CBC w/ auto diff 2023 024 NATHAN [facility], [address], [address], [place], [address], 04/07/2024 12:36:53 CMP, serum or plasma 2023 024 NATHAN [facility], [address], [address], [place], [address], 04/07/2024 12:36:53 HbA1c (hemog lobin A1c), blood 2023 024 NATHAN [facility], [address], [address], [place], [address], 04/07/2024 12:36:55 vitami n D, 25-hyd raul, total, serum 2023 024 NATHAN [facility], [address], [address], [place], [address], 04/07/2024 12:36:56 vitami n E, serum 2023 024 NATHAN [facility], [address], [address], [place], [address], 04/07/2024 12:36:54 vitami n A (retin ol), serum 2023 024 NATHAN [facility], [address], [address], [place], [address], 04/07/2024 12:36:56 thiami ne, QN, blood 2023 024 NATHAN [facility], [address], [address], [place], [address], 04/07/2024 12:36:57 methyl malona te, QN, serum or plasma 2023 024 NATHAN [facility], [address], [address], [place], [address], 04/07/2024 12:36:57 prealb umin, serum 2023 024 NATHAN [facility], [address], [address], [place], [address], 04/07/2024 12:36:59 lipid panel, serum 2023 024 NATHAN [facility], [address], [address], [place], [address], 04/07/2024 12:36:54 TSH + free T4, serum 2023 024 NATHAN [facility], [address], [address], [place], [address], 04/07/2024 12:36:52 iron + TIBC + ferrit in, serum 2023 024 NATHAN [facility], [address], [address], [place], [address], 04/07/2024 12:36:52 folate , serum 2023 024 NATHAN [facility], [address], [address], [place], [address], 04/07/2024 12:36:55 Referral None record ed. Procedures None record ed. Surgeries esopha gogast roduod enosco py (SURG) 2023 024 [email or web address] Terese Higuera MD, [address], [address], [place], [address], 05/26/2024 10:46:31 Imaging RF, upper gastro intest inal tract + small bowel, w/ contra st PO 2023 024 [email or web address] [facility] (Centralized Scheduling), [address], [place], [address], 06/04/2024 16:14:18 Medication Orders Carafa te 1 gram tablet 2023 024 [facility], [address], [id number], 08/18/2024 12:05:16 Proton ix 40 mg tablet ,delay ed releas e 2023 024 [facility], [address] [facility] [address] [place], [place], [id number], 08/18/2024 12:11:12 omepra zole 20 mg capsul etita releas e 2023 024 [email or web address] [facility], [address] [place] [address] Jar[place] Carran[place], [id number], 12/18/2024 11:02:39 promet hazine 12.5 mg rectal suppos itory 2023 025 NATHAN [facility], [address] [place], [place] [address], [id number], 11/17/2024 09:17:43 Patient TargetsNo targets recorded. Patient InstructionsNo instructions recorded. Reason for Referral None Reported. Results Created Date Observation Date Name Description Value Unit Range Abnormal Flag Note LastModifiedBy Organization Detail LastModifiedTime 03/31/2004/01/2024 FE+TI BC+FE R iron bind.cap.(TI BC) 255 ug/dL 250-45 0 normal Not Available [facility] ([facility]) [address] [place], [address], 04/07/2024 12:36:52 03/31/20 24 04/01/2024 FE+TI BC+FE R UIBC 196 ug/dL 131-42 5 normal Not Available [facility] ([facility]) [address] [place], [address], 04/07/2024 12:36:52 03/31/20 24 04/01/2024 FE+TI BC+FE R iron 59 ug/dL 27-159 normal Not Available [facility] ([facility]) [address] [place], [address], 04/07/2024 12:36:52 03/31/20 24 04/01/2024 FE+TI BC+FE R iron saturation 23 % 15-55 normal Not Available [facility] ([facility]) [address] [place], [address], 04/07/2024 12:36:52 03/31/20 24 04/01/2024 FE+TI BC+FE R ferritin 360 NG/mL 15-150 above high normal Not Available [facility] ([facility]) [address] [place], [address], 04/07/2024 12:36:52 03/31/20 24 04/01/2024 TSH+F REE T4 TSH 2.540 uIU/m L 0.450- 4.500 normal Not Available [facility] ([facility]) [address] [place], [address], 04/07/2024 12:36:52 03/31/20 24 04/01/2024 TSH+F REE T4 T4,free(dire ct) 1.65 NG/dL 0.82-1 .77 normal Not Available [facility] ([facility]) [address] [place], [address], 04/07/2024 12:36:52 03/31/20 24 04/01/2024 CBC WITH DIFFE RENTI AL/PL ATELE T WBC 7.3 x10e3 /uL 3.4-10 .8 normal Not Available [facility] ([facility]) [address] [place], [address], 04/07/2024 12:36:53 03/31/20 24 04/01/2024 CBC WITH DIFFE RENTI AL/PL ATELE T RBC 4.61 x10e6 /uL 3.77-5 .28 normal Not Available [facility] ([facility]) [address] [place], [address], 04/07/2024 12:36:53 03/31/20 24 04/01/2024 CBC WITH DIFFE RENTI AL/PL ATELE T hemoglobin 13.7 g/dL 11.1-1 5.9 normal Not Available [facility] ([facility]) [address] [place], [address], 04/07/2024 12:36:53 03/31/20 24 04/01/2024 CBC WITH DIFFE RENTI AL/PL ATELE T hematocrit 41.8 % 34.0-4 6.6 normal Not Available [facility] ([facility]) [address] [facility], [place], [address], 04/07/2024 12:36:53 03/31/20 24 04/01/2024 CBC WITH DIFFE RENTI AL/PL ATELE T MCV 91 fL 79-97 normal Not Available [facility] ([facility]) [address] [place], [address], 04/07/2024 12:36:53 03/31/20 24 04/01/2024 CBC WITH DIFFE RENTI AL/PL ATELE T MCH 29.7 pg 26.6-3 3.0 normal Not Available [facility] ([facility]) [address] [facility], [place], [address], 04/07/2024 12:36:53 03/31/20 24 04/01/2024 CBC WITH DIFFE RENTI AL/PL ATELE T MCHC 32.8 g/dL 31.5-3 5.7 normal Not Available [facility] ([facility]) [address] [place], [address], 04/07/2024 12:36:53 03/31/20 24 04/01/2024 CBC WITH DIFFE RENTI AL/PL ATELE T RDW 12.6 % 11.7-1 5.4 Not Available [facility] ([facility]) [address] [place], [address], 04/07/2024 12:36:53 03/31/20 24 04/01/2024 CBC WITH DIFFE RENTI AL/PL ATELE T platelets 372 x10e3 /uL 150-45 0 normal Not Available [facility] ([facility]) [address] [place], [address], 04/07/2024 12:36:53 03/31/20 24 04/01/2024 CBC WITH DIFFE RENTI AL/PL ATELE T neutrophils 64 % not estab. normal Not Available [facility] ([facility]) [address] [facility], [place], [address], 04/07/2024 12:36:53 03/31/20 24 04/01/2024 CBC WITH DIFFE RENTI AL/PL ATELE T lymphs 24 % not estab. normal Not Available [facility] ([facility]) [address] [facility], [place], [address], 04/07/2024 12:36:53 03/31/20 24 04/01/2024 CBC WITH DIFFE RENTI AL/PL ATELE T monocytes 7 % not estab. normal Not Available [facility] ([facility]) [address] [facility], [place], [address], 04/07/2024 12:36:53 03/31/20 24 04/01/2024 CBC WITH DIFFE RENTI AL/PL ATELE T eos 4 % not estab. normal Not Available [facility] ([facility]) [address] [facility], [place], [address], 04/07/2024 12:36:53 03/31/20 24 04/01/2024 CBC WITH DIFFE RENTI AL/PL ATELE T basos 1 % not estab. normal Not Available [facility] ([facility]) [address] [facility], [place], [address], 04/07/2024 12:36:53 03/31/20 24 04/01/2024 CBC WITH DIFFE RENTI AL/PL ATELE T immature cells BLUNGER Not Available [facility] ([facility]) [address] [place], [address], 04/07/2024 12:36:53 03/31/20 24 04/01/2024 CBC WITH DIFFE RENTI AL/PL ATELE T neutrophils (absolute) 4.6 x10e3 /uL 1.4-7. 0 normal Not Available [facility] ([facility]) [address] [place], [address], 04/07/2024 12:36:53 03/31/20 24 04/01/2024 CBC WITH DIFFE RENTI AL/PL ATELE T lymphs (absolute) 1.8 x10e3 /uL 0.7-3. 1 normal Not Available [facility] ([facility]) [address] [place], [address], 04/07/2024 12:36:53 03/31/20 24 04/01/2024 CBC WITH DIFFE RENTI AL/PL ATELE T monocytes(ab solute) 0.5 x10e3 /uL 0.1-0. 9 normal Not Available [facility] ([facility]) [address] [place], [address], 04/07/2024 12:36:53 03/31/20 24 04/01/2024 CBC WITH DIFFE RENTI AL/PL ATELE T eos (absolute) 0.3 x10e3 /uL 0.0-0. 4 normal Not Available [facility] ([facility]) [address] [place], [address], 04/07/2024 12:36:53 03/31/20 24 04/01/2024 CBC WITH DIFFE RENTI AL/PL ATELE T baso (absolute) 0.1 x10e3 /uL 0.0-0. 2 normal Not Available [facility] ([facility]) [address] [place], [address], 04/07/2024 12:36:53 03/31/20 24 04/01/2024 CBC WITH DIFFE RENTI AL/PL ATELE T immature granulocytes 0 % not estab. Not Available [facility] ([facility]) [address] [place], [address], 04/07/2024 12:36:53 03/31/20 24 04/01/2024 CBC WITH DIFFE RENTI AL/PL ATELE T immature grans (abs) 0.0 x10e3 /uL 0.0-0. 1 Not Available [facility] ([facility]) [address] [facility], [place], [address], 04/07/2024 12:36:53 03/31/20 24 04/01/2024 CBC WITH DIFFE RENTI AL/PL ATELE T NRBC BLUNGER Not Available [facility] ([facility]) [address] [facility], [place], [address], 04/07/2024 12:36:53 03/31/20 24 04/01/2024 CBC WITH DIFFE RENTI AL/PL ATELE T hematology comments: BLUNGER Not Available [facility] ([facility]) [address] [facility], [place], [address], 04/07/2024 12:36:53 03/31/20 24 04/01/2024 COMP. METAB OLIC PANEL (14) glucose 86 mg/dL 70-99 normal Not Available [facility] ([facility]) [address] [facility], [place], [address], 04/07/2024 12:36:53 03/31/20 24 04/01/2024 COMP. METAB OLIC PANEL (14) BUN 6 mg/dL 6-24 normal Not Available [facility] ([facility]) [address] [facility], [place], [address], 04/07/2024 12:36:53 03/31/20 24 04/01/2024 COMP. METAB OLIC PANEL (14) creatinine 0.73 mg/dL 0.57-1 .00 normal Not Available [facility] ([facility]) [address] [facility], [place], [address], 04/07/2024 12:36:53 03/31/20 24 04/01/2024 COMP. METAB OLIC PANEL (14) eGFR 95 mL/mi n/1.7 3 >59 normal Not Available [facility] ([facility]) [address] [facility] [place], [address], 04/07/2024 12:36:53 03/31/20 24 04/01/2024 COMP. METAB OLIC PANEL (14) BUN/creatini ne ratio 8 9-23 below low normal Not Available [facility] ([facility]) [address] [facility] [place], [address], 04/07/2024 12:36:53 03/31/20 24 04/01/2024 COMP. METAB OLIC PANEL (14) sodium 132 mmol/ L 134-14 4 below low normal Not Available [facility] ([facility]) [address] [facility] [place], [address], 04/07/2024 12:36:53 03/31/20 24 04/01/2024 COMP. METAB OLIC PANEL (14) potassium 4.6 mmol/ L 3.5-5. 2 normal Not Available [facility] ([facility]) [address] [facility] [place], [address], 04/07/2024 12:36:53 03/31/20 24 04/01/2024 COMP. METAB OLIC PANEL (14) chloride 93 mmol/ L 96-106 below low normal Not Available [facility] ([facility]) [address] [facility] [place], [address], 04/07/2024 12:36:53 03/31/20 24 04/01/2024 COMP. METAB OLIC PANEL (14) carbon dioxide, total 27 mmol/ L 20-29 normal Not Available [facility] ([facility]) [address] [facility] [place], [address], 04/07/2024 12:36:53 03/31/20 24 04/01/2024 COMP. METAB OLIC PANEL (14) calcium 9.1 mg/dL 8.7-10 .2 normal Not Available [facility] ([facility]) [address] [place], [address], 04/07/2024 12:36:53 03/31/20 24 04/01/2024 COMP. METAB OLIC PANEL (14) protein, total 6.1 g/dL 6.0-8. 5 normal Not Available [facility] ([facility]) [address] [place], [address], 04/07/2024 12:36:53 03/31/20 24 04/01/2024 COMP. METAB OLIC PANEL (14) albumin 4.0 g/dL 3.8-4. 9 normal Not Available [facility] ([facility]) [address] [place], [address], 04/07/2024 12:36:53 03/31/20 24 04/01/2024 COMP. METAB OLIC PANEL (14) globulin, total 2.1 g/dL 1.5-4. 5 Not Available [facility] ([facility]) [address] [place], [address], 04/07/2024 12:36:53 03/31/20 24 04/01/2024 COMP. METAB OLIC PANEL (14) bilirubin, total 0.4 mg/dL 0.0-1. 2 normal Not Available [facility] ([facility]) [address] [place], [address], 04/07/2024 12:36:53 03/31/20 24 04/01/2024 COMP. METAB OLIC PANEL (14) alkaline phosphatase 137 IU/L 44-121 above high normal Not Available [facility] ([facility]) [address] [place], [address], 04/07/2024 12:36:53 03/31/20 24 04/01/2024 COMP. METAB OLIC PANEL (14) AST (SGOT) 15 IU/L 0-40 normal Not Available [facility] ([facility]) [address] [facility], [place], [address], 04/07/2024 12:36:53 03/31/20 24 04/01/2024 COMP. METAB OLIC PANEL (14) ALT (SGPT) 16 IU/L 0-32 normal Not Available [facility] ([facility]) [address] [facility], [place], [address], 04/07/2024 12:36:53 03/31/20 24 04/01/2024 LIPID PANEL cholesterol, total 190 mg/dL 100-19 9 normal Not Available [facility] ([facility]) [address] [place], [address], 04/07/2024 12:36:54 03/31/20 24 04/01/2024 LIPID PANEL triglyceride s 78 mg/dL 0-149 normal Not Available [facility] ([facility]) [address] [place], [address], 04/07/2024 12:36:54 03/31/20 24 04/01/2024 LIPID PANEL HDL cholesterol 78 mg/dL >39 normal Not Available [facility] ([facility]) [address] [facility], [place], [address], 04/07/2024 12:36:54 03/31/20 24 04/01/2024 LIPID PANEL VLDL cholesterol sharon 14 mg/dL 5-40 Not Available [facility] ([facility]) [address] [place], [address], 04/07/2024 12:36:54 03/31/20 24 04/01/2024 LIPID PANEL LDL chol calc ([facility]) 98 mg/dL 0-99 Not Available [facility] ([facility]) [address] [place], [address], 04/07/2024 12:36:54 03/31/20 24 04/01/2024 LIPID PANEL LDL calc comment: BLUNGER Not Available [facility] ([facility]) [address] [facility], [place], [address], 04/07/2024 12:36:54 03/31/20 24 04/03/2024 VITAM IN E vitamin E(alpha tocopherol) 10.8 mg/L 7.0-25 .1 Not Available [facility] ([facility]) [address] [facility], [place], [address], 04/07/2024 12:36:54 03/31/20 24 04/03/2024 VITAM IN E vitamin E(gamma tocopherol) 0.8 mg/L 0.5-5. 5 Refer ence inter vals for alpha and gamma -toco phero l deter mined from [facility] natio n Surve y, 2004- 2005. Indiv idual s with alpha -toco phero l level s less than 5.0 mg/L are consi dered vitam in E defic ient. Not Available [facility] ([facility]) [address] [facility], [place], [address], 04/07/2024 12:36:54 03/31/20 24 04/01/2024 HEMOG LOBIN A1C hemoglobin A1C 5.3 % 4.8-5. 6 normal Predi abete s: 5.7 - 6.4 Diabe zoila: >6.4 Glyce carol contr ol for adult s with diabe zoila: <7.0 Not Available [facility] ([facility]) [address] [facility], [place], [address], 04/07/2024 12:36:55 03/31/20 24 04/01/2024 FOLAT E (FOLI C ACID) , SERUM folate (folic acid), serum 13.3 NG/mL >3.0 normal A serum folat e mikaela ntrat ion of less than 3.1 ng/mL is consi dered to repre sent clini sharon defic iency . Not Available [facility] ([facility]) [address] [facility], [place], [address], 04/07/2024 12:36:55 03/31/20 24 04/03/2024 VITAM IN A, SERUM vitamin A 34.2 ug/dL 20.1-6 2.0 Refer ence inter vals for vitam in A deter mined from [facility] inter nal studi es. Indiv idual s with vitam in A less than 20 ug/dL are consi dered vitam in A defic ient and those with serum mikaela ntrat ions less than 10 ug/dL are consi dered sever sandra defic ient. This test was devel oped and its perfo rmanc e anny cteri stics deter mined by [facility]. It has not been clear ed or appro sakina by the Food and Drug Admin istra tion. Not Available [facility] ([facility]) [address] [facility], [place], [address], 04/07/2024 12:36:56 03/31/20 24 04/01/2024 VITAM IN D, 25-HY DROXY vitamin D, 25-hydroxy 36.5 NG/mL 30.0-1 00.0 Vitam in D defic iency has been defin ed by the Insti tute of Medic ine and an Endoc rine Socie ty pract ice guide line as a level of serum 25-OH vitam in D less than 20 ng/mL (1,2) . The Endoc rine Socie ty went on to furth er defin e vitam in D insuf ficie ncy as a level betwe en 21 and 29 ng/mL (2). 1. IOM (Inst itute of Medic ine). 2009. Dieta ry refer ence intak es for calci um and D. Karis bunch [place]: The Natio nal [facility] Press . 2. Dipak mejia MF, [place], [place] [employer] th[employer] i FARRELL, et al. Evalu ation , treat ment, and preve ntion of vitam in D defic iency : an Endoc rine Socie ty clini sharon pract ice guide line. JCEM. 2010; 96(7) :1911 -30. Not Available [facility] ([facility]) [address] [place], [address], 04/07/2024 12:36:56 03/31/20 24 04/02/2024 VITAM IN B1 (THIA MINE) , BLOOD vit. B1, whole blood 128.8 nmol/ L 66.5-2 00.0 Not Available [facility] ([facility]) [address] [place], [address], 04/07/2024 12:36:57 03/31/20 24 04/07/2024 METHY LMALO INDIGO ACID, SERUM methylmaloni c acid, serum 153 nmol/ L 0-378 Not Available [facility] ([facility]) [address] [place], [address], 04/07/2024 12:36:57 03/31/20 24 04/02/2024 COPPE R, SERUM OR PLASM A copper, serum or plasma 117 ug/dL 80-158 Detec tion Limit = 5 Not Available [facility] ([facility]) [address] [place], [address], 04/07/2024 12:36:58 03/31/20 24 04/02/2024 ZINC, PLASM A OR SERUM zinc, plasma or serum 46 ug/dL 44-115 normal Detec tion Limit = 5 Not Available [facility] ([facility]) [address] [place], [address], 04/07/2024 12:36:58 03/31/20 24 04/01/2024 PREAL BUMIN prealbumin 18 mg/dL 10-36 Not Available [facility] ([facility]) [address] [place], [address], 04/07/2024 12:36:59 03/31/20 24 04/04/2024 SELEN IUM, BLOOD selenium, blood 166 ug/L 100-34 0 Detec tion Limit = 10 Not Available [facility] ([facility]) [address] [place], [address], 04/07/2024 12:36:59 08/18/20 24 08/19/2024 FE+TI BC+FE R iron bind.cap.(TI BC) 307 ug/dL 250-45 0 normal Not Available [facility] ([facility]) [address] [facility], [place], [address], 08/25/2024 14:37:31 08/18/20 24 08/19/2024 FE+TI BC+FE R UIBC 208 ug/dL 131-42 5 normal Not Available [facility] ([facility]) [address] [place], [address], 08/25/2024 14:37:31 08/18/20 24 08/19/2024 FE+TI BC+FE R iron 99 ug/dL 27-159 normal Not Available [facility] ([facility]) [address] [facility], [place], [address], 08/25/2024 14:37:31 08/18/20 24 08/19/2024 FE+TI BC+FE R iron saturation 32 % 15-55 normal Not Available [facility] ([facility]) [address] [place], [address], 08/25/2024 14:37:31 08/18/20 24 08/19/2024 FE+TI BC+FE R ferritin 421 NG/mL 15-150 above high normal Not Available [facility] ([facility]) [address] [place], [address], 08/25/2024 14:37:31 08/18/20 24 08/19/2024 TSH+F REE T4 TSH 1.170 uIU/m L 0.450- 4.500 normal Not Available [facility] ([facility]) [address] [place], [address], 08/25/2024 14:37:32 08/18/20 24 08/19/2024 TSH+F REE T4 T4,free(dire ct) 1.65 NG/dL 0.82-1 .77 normal Not Available [facility] ([facility]) [address] [place], [address], 08/25/2024 14:37:32 08/18/20 24 08/19/2024 CBC WITH DIFFE RENTI AL/PL ATELE T WBC 6.4 x10e3 /uL 3.4-10 .8 normal Not Available [facility] ([facility]) [address] [place], [address], 08/25/2024 14:37:32 08/18/20 24 08/19/2024 CBC WITH DIFFE RENTI AL/PL ATELE T RBC 4.49 x10e6 /uL 3.77-5 .28 normal Not Available [facility] ([facility]) [address] [place], [address], 08/25/2024 14:37:32 08/18/20 24 08/19/2024 CBC WITH DIFFE RENTI AL/PL ATELE T hemoglobin 13.4 g/dL 11.1-1 5.9 normal Not Available [facility] ([facility]) [address] [place], [address], 08/25/2024 14:37:32 08/18/20 24 08/19/2024 CBC WITH DIFFE RENTI AL/PL ATELE T hematocrit 40.9 % 34.0-4 6.6 normal Not Available [facility] ([facility]) [address] [place], [address], 08/25/2024 14:37:32 08/18/20 24 08/19/2024 CBC WITH DIFFE RENTI AL/PL ATELE T MCV 91 fL 79-97 normal Not Available [facility] ([facility]) [address] [place], [address], 08/25/2024 14:37:32 08/18/20 24 08/19/2024 CBC WITH DIFFE RENTI AL/PL ATELE T MCH 29.8 pg 26.6-3 3.0 normal Not Available [facility] ([facility]) [address] [facility], [place], [address], 08/25/2024 14:37:32 08/18/20 24 08/19/2024 CBC WITH DIFFE RENTI AL/PL ATELE T MCHC 32.8 g/dL 31.5-3 5.7 normal Not Available [facility] ([facility]) [address] [facility], [place], [address], 08/25/2024 14:37:32 08/18/20 24 08/19/2024 CBC WITH DIFFE RENTI AL/PL ATELE T RDW 12.5 % 11.7-1 5.4 Not Available [facility] ([facility]) [address] [facility], [place], [address], 08/25/2024 14:37:32 08/18/20 24 08/19/2024 CBC WITH DIFFE RENTI AL/PL ATELE T platelets 400 x10e3 /uL 150-45 0 normal Not Available [facility] ([facility]) [address] [facility], [place], [address], 08/25/2024 14:37:32 08/18/20 24 08/19/2024 CBC WITH DIFFE RENTI AL/PL ATELE T neutrophils 52 % not estab. normal Not Available [facility] ([facility]) [address] [facility], [place], [address], 08/25/2024 14:37:32 08/18/20 24 08/19/2024 CBC WITH DIFFE RENTI AL/PL ATELE T lymphs 34 % not estab. normal Not Available [facility] ([facility]) [address] [facility], [place], [address], 08/25/2024 14:37:32 08/18/20 24 08/19/2024 CBC WITH DIFFE RENTI AL/PL ATELE T monocytes 9 % not estab. normal Not Available [facility] ([facility]) [address] [facility], [place], [address], 08/25/2024 14:37:32 08/18/20 24 08/19/2024 CBC WITH DIFFE RENTI AL/PL ATELE T eos 4 % not estab. normal Not Available [facility] ([facility]) [address] [facility], [place], [address], 08/25/2024 14:37:32 08/18/20 24 08/19/2024 CBC WITH DIFFE RENTI AL/PL ATELE T basos 1 % not estab. normal Not Available [facility] ([facility]) [address] [facility], [place], [address], 08/25/2024 14:37:32 08/18/20 24 08/19/2024 CBC WITH DIFFE RENTI AL/PL ATELE T immature cells BLUNGER Not Available [facility] ([facility]) [address] [place], [address], 08/25/2024 14:37:32 08/18/20 24 08/19/2024 CBC WITH DIFFE RENTI AL/PL ATELE T neutrophils (absolute) 3.4 x10e3 /uL 1.4-7. 0 normal Not Available [facility] ([facility]) [address] [place], [address], 08/25/2024 14:37:32 08/18/20 24 08/19/2024 CBC WITH DIFFE RENTI AL/PL ATELE T lymphs (absolute) 2.2 x10e3 /uL 0.7-3. 1 normal Not Available [facility] ([facility]) [address] [place], [address], 08/25/2024 14:37:32 08/18/20 24 08/19/2024 CBC WITH DIFFE RENTI AL/PL ATELE T monocytes(ab solute) 0.6 x10e3 /uL 0.1-0. 9 normal Not Available [facility] ([facility]) [address] [facility], [place], [address], 08/25/2024 14:37:32 08/18/20 24 08/19/2024 CBC WITH DIFFE RENTI AL/PL ATELE T eos (absolute) 0.3 x10e3 /uL 0.0-0. 4 normal Not Available [facility] ([facility]) [address] [facility], [place], [address], 08/25/2024 14:37:32 08/18/20 24 08/19/2024 CBC WITH DIFFE RENTI AL/PL ATELE T baso (absolute) 0.1 x10e3 /uL 0.0-0. 2 normal Not Available [facility] ([facility]) [address] [facility], [place], [address], 08/25/2024 14:37:32 08/18/20 24 08/19/2024 CBC WITH DIFFE RENTI AL/PL ATELE T immature granulocytes 0 % not estab. Not Available [facility] ([facility]) [address] [facility], [place], [address], 08/25/2024 14:37:32 08/18/20 24 08/19/2024 CBC WITH DIFFE RENTI AL/PL ATELE T immature grans (abs) 0.0 x10e3 /uL 0.0-0. 1 Not Available [facility] ([facility]) [address] [facility], [place], [address], 08/25/2024 14:37:32 08/18/20 24 08/19/2024 CBC WITH DIFFE RENTI AL/PL ATELE T NRBC BLUNGER Not Available [facility] ([facility]) [address] [facility], [place], [address], 08/25/2024 14:37:32 08/18/20 24 08/19/2024 CBC WITH DIFFE RENTI AL/PL AMANDA T hematology comments: BLUNGER Not Available [facility] ([facility]) [address] [facility], [place], [address], 08/25/2024 14:37:32 08/18/20 24 08/19/2024 COMP. METAB OLIC PANEL (14) glucose 56 mg/dL 70-99 below low normal Not Available [facility] ([facility]) [address] [facility] [place], [address], 08/25/2024 14:37:34 08/18/20 24 08/19/2024 COMP. METAB OLIC PANEL (14) BUN 6 mg/dL 6-24 normal Not Available [facility] ([facility]) [address] [facility], [place], [address], 08/25/2024 14:37:34 08/18/20 24 08/19/2024 COMP. METAB OLIC PANEL (14) creatinine 0.78 mg/dL 0.57-1 .00 normal Not Available [facility] ([facility]) [address] [facility] [place], [address], 08/25/2024 14:37:34 08/18/20 24 08/19/2024 COMP. METAB OLIC PANEL (14) eGFR 88 mL/mi n/1.7 3 >59 normal Not Available [facility] ([facility]) [address] [facility] [place], [address], 08/25/2024 14:37:34 08/18/20 24 08/19/2024 COMP. METAB OLIC PANEL (14) BUN/creatini ne ratio 8 9-23 below low normal Not Available [facility] ([facility]) [address] [facility] [place], [address], 08/25/2024 14:37:34 08/18/20 24 08/19/2024 COMP. METAB OLIC PANEL (14) sodium 129 mmol/ L 134-14 4 below low normal Not Available [facility] ([facility]) [address] [place], [address], 08/25/2024 14:37:34 08/18/20 24 08/19/2024 COMP. METAB OLIC PANEL (14) potassium 4.8 mmol/ L 3.5-5. 2 normal Not Available [facility] ([facility]) [address] [place], [address], 08/25/2024 14:37:34 08/18/20 24 08/19/2024 COMP. METAB OLIC PANEL (14) chloride 90 mmol/ L 96-106 below low normal Not Available [facility] ([facility]) [address] [place], [address], 08/25/2024 14:37:34 08/18/20 24 08/19/2024 COMP. METAB OLIC PANEL (14) carbon dioxide, total 21 mmol/ L 20-29 normal Not Available [facility] ([facility]) [address] [facility], [place], [address], 08/25/2024 14:37:34 08/18/20 24 08/19/2024 COMP. METAB OLIC PANEL (14) calcium 8.9 mg/dL 8.7-10 .2 normal Not Available [facility] ([facility]) [address] [facility] [place], [address], 08/25/2024 14:37:34 08/18/20 24 08/19/2024 COMP. METAB OLIC PANEL (14) protein, total 6.3 g/dL 6.0-8. 5 normal Not Available [facility] ([facility]) [address] [facility] [place], [address], 08/25/2024 14:37:34 08/18/20 24 08/19/2024 COMP. METAB OLIC PANEL (14) albumin 3.9 g/dL 3.8-4. 9 normal Not Available [facility] ([facility]) [address] [facility] [place], [address], 08/25/2024 14:37:34 08/18/20 24 08/19/2024 COMP. METAB OLIC PANEL (14) globulin, total 2.4 g/dL 1.5-4. 5 Not Available [facility] ([facility]) [address] [facility] [place], [address], 08/25/2024 14:37:34 08/18/20 24 08/19/2024 COMP. METAB OLIC PANEL (14) bilirubin, total 0.3 mg/dL 0.0-1. 2 normal Not Available [facility] ([facility]) [address] [facility] [place], [address], 08/25/2024 14:37:34 08/18/20 24 08/19/2024 COMP. METAB OLIC PANEL (14) alkaline phosphatase 152 IU/L 44-121 above high normal Not Available [facility] ([facility]) [address] [facility] [place], [address], 08/25/2024 14:37:34 08/18/20 24 08/19/2024 COMP. METAB OLIC PANEL (14) AST (SGOT) 21 IU/L 0-40 normal Not Available [facility] ([facility]) [address] [facility] [place], [address], 08/25/2024 14:37:34 08/18/20 24 08/19/2024 COMP. METAB OLIC PANEL (14) ALT (SGPT) 20 IU/L 0-32 normal Not Available [facility] ([facility]) [address] [facility] [place], [address], 08/25/2024 14:37:34 08/18/20 24 08/19/2024 LIPID PANEL cholesterol, total 175 mg/dL 100-19 9 normal Not Available [facility] ([facility]) [address] [facility] [place], [address], 08/25/2024 14:37:35 08/18/20 24 08/19/2024 LIPID PANEL triglyceride s 99 mg/dL 0-149 normal Not Available [facility] ([facility]) [address] [place], [address], 08/25/2024 14:37:35 08/18/20 24 08/19/2024 LIPID PANEL HDL cholesterol 90 mg/dL >39 normal Not Available [facility] ([facility]) [address] [facility], [place], [address], 08/25/2024 14:37:35 08/18/20 24 08/19/2024 LIPID PANEL VLDL cholesterol sahron 17 mg/dL 5-40 Not Available [facility] ([facility]) [address] [place], [address], 08/25/2024 14:37:35 08/18/20 24 08/19/2024 LIPID PANEL LDL chol calc ([facility]) 68 mg/dL 0-99 Not Available [facility] ([facility]) [address] [facility], [place], [address], 08/25/2024 14:37:35 08/18/20 24 08/19/2024 LIPID PANEL LDL calc comment: BLUNGER Not Available [facility] ([facility]) [address] [facility], [place], [address], 08/25/2024 14:37:35 08/18/20 24 08/24/2024 VITAM IN E vitamin E(alpha tocopherol) 9.3 mg/L 7.0-25 .1 Not Available [facility] ([facility]) [address] [place], [address], 08/25/2024 14:37:36 08/18/20 24 08/24/2024 VITAM IN E vitamin E(gamma tocopherol) 0.8 mg/L 0.5-5. 5 Refer ence inter vals for alpha and gamma -toco phero l deter mined from [facility] tion [facility]ami natio n Surve y, 2004- 2005. Indiv idual s with alpha -toco phero l level s less than 5.0 mg/L are consi dered vitam in E defic ient. Not Available [facility] ([facility]) [address] [facility], [place], [address], 08/25/2024 14:37:36 08/18/20 24 08/19/2024 HEMOG LOBIN A1C hemoglobin A1C 5.8 % 4.8-5. 6 above high normal Predi abete s: 5.7 - 6.4 Diabe zoila: >6.4 Glyce carol contr ol for adult s with diabe zoila: <7.0 Not Available [facility] ([facility]) [address] [facility], [place], [address], 08/25/2024 14:37:37 08/18/20 24 08/19/2024 FOLAT E (FOLI C ACID) , SERUM folate (folic acid), serum 13.4 NG/mL >3.0 normal A serum folat e mikaela ntrat ion of less than 3.1 ng/mL is consi dered to repre sent clini sharon defic iency . Not Available [facility] ([facility]) [address] [facility], [place], [address], 08/25/2024 14:37:38 08/18/20 24 08/24/2024 VITAM IN A, SERUM vitamin A 38.6 ug/dL 20.1-6 2.0 Refer ence inter vals for vitam in A deter mined from [facility] inter nal studi es. Indiv idual s with vitam in A less than 20 ug/dL are consi dered vitam in A defic ient and those with serum mikaela ntrat ions less than 10 ug/dL are consi dered sever sandra defic ient. This test was devel oped and its perfo rmanc e anny cteri stics deter mined by [facility]. It has not been clear ed or appro sakina by the Food and Drug Admin istra tion. Not Available [facility] ([facility]) [address] [place], [address], 08/25/2024 14:37:38 08/18/20 24 08/19/2024 VITAM IN D, 25-HY DROXY vitamin D, 25-hydroxy 37.4 NG/mL 30.0-1 00.0 Vitam in D defic iency has been defin ed by the Insti tute of Medic ine and an Endoc rine Socie ty pract ice guide line as a level of serum 25-OH vitam in D less than 20 ng/mL (1,2) . The Endoc rine Socie ty went on to furth er defin e vitam in D insuf ficie ncy as a level betwe en 21 and 29 ng/mL (2). 1. IOM (Inst itute of Medic ine). 2010. Khurram ry refer ence intak es for calci um and D. Karis bunch [place]: [facility] . 2. Dipak mejia [place], Henry waller [place], [place] off-F errar i FARRELL, et al. Evalu ation , treat ment, and preve ntion of vitam in D defic iency : an Endoc rine Socie ty clini sharon pract ice guide line. JCEM. 2010; 96(7) :1911 -30. Not Available [facility] ([facility]) [address] [place], [address], 08/25/2024 14:37:39 08/18/20 24 08/25/2024 VITAM IN B1 (THIA MINE) , BLOOD vit. B1, whole blood 121.7 nmol/ L 66.5-2 00.0 Not Available [facility] ([facility]) [address] [place], [address], 08/25/2024 14:37:40 08/18/20 24 08/21/2024 METHY LMALO INDIGO ACID, SERUM methylmaloni c acid, serum 130 nmol/ L 0-378 Not Available [facility] ([facility]) [address] [place], [address], 08/25/2024 14:37:41 08/18/20 24 08/19/2024 COPPE R, SERUM OR PLASM A copper, serum or plasma 132 ug/dL 80-158 Detec tion Limit = 5 Not Available [facility] ([facility]) [address] [facility], [place], [address], 08/25/2024 14:37:42 08/18/20 24 08/19/2024 ZINC, PLASM A OR SERUM zinc, plasma or serum 52 ug/dL 44-115 normal Detec tion Limit = 5 Not Available [facility] ([facility]) [address] [place], [address], 08/25/2024 14:37:43 08/18/20 24 08/19/2024 PREAL BUMIN prealbumin 19 mg/dL 10-36 Not Available [facility] ([facility]) [address] [place], [address], 08/25/2024 14:37:44 08/18/20 24 08/22/2024 SELEN IUM, BLOOD selenium, blood 116 ug/L 100-34 0 Detec tion Limit = 10 Not Available [facility] ([facility]) [address] [place], [address], 08/25/2024 14:37:45 11/18/19 25 11/18/2024 FE+TI BC+FE R iron bind.cap.(TI BC) 251 ug/dL 250-45 0 normal Not Available [facility] ([facility]) [address] [place], [address], 11/28/2024 18:38:00 11/18/19 25 11/18/2024 FE+TI BC+FE R UIBC 188 ug/dL 131-42 5 normal Not Available [facility] ([facility]) [address] [place], [address], 11/28/2024 18:38:00 11/18/19 25 11/18/2024 FE+TI BC+FE R iron 63 ug/dL 27-159 normal Not Available [facility] ([facility]) [address] [place], [address], 11/28/2024 18:38:00 11/18/19 25 11/18/2024 FE+TI BC+FE R iron saturation 25 % 15-55 normal Not Available [facility] ([facility]) [address] [place], [address], 11/28/2024 18:38:00 11/18/19 25 11/18/2024 FE+TI BC+FE R ferritin 271 NG/mL 15-150 above high normal Not Available [facility] ([facility]) [address] [place], [address], 11/28/2024 18:38:00 11/18/19 25 11/18/2024 TSH+F REE T4 TSH 28.400 uIU/m L 0.450- 4.500 above high normal Not Available [facility] ([facility]) [address] [place], [address], 11/28/2024 18:38:01 11/18/19 25 11/18/2024 TSH+F REE T4 T4,free(dire ct) 0.70 NG/dL 0.82-1 .77 below low normal Not Available [facility] ([facility]) [address] [place], [address], 11/28/2024 18:38:01 11/18/19 25 11/18/2024 CBC WITH DIFFE RENTI AL/PL ATELE T WBC 6.4 x10e3 /uL 3.4-10 .8 normal Not Available [facility] ([facility]) [address] [place], [address], 11/28/2024 18:38:02 11/18/19 25 11/18/2024 CBC WITH DIFFE RENTI AL/PL ATELE T RBC 4.36 x10e6 /uL 3.77-5 .28 normal Not Available [facility] ([facility]) [address] [place], [address], 11/28/2024 18:38:02 11/18/19 25 11/18/2024 CBC WITH DIFFE RENTI AL/PL ATELE T hemoglobin 13.0 g/dL 11.1-1 5.9 normal Not Available [facility] ([facility]) [address] [place], [address], 11/28/2024 18:38:02 11/18/19 25 11/18/2024 CBC WITH DIFFE RENTI AL/PL ATELE T hematocrit 39.6 % 34.0-4 6.6 normal Not Available [facility] ([facility]) [address] [place], [address], 11/28/2024 18:38:02 11/18/19 25 11/18/2024 CBC WITH DIFFE RENTI AL/PL ATELE T MCV 91 fL 79-97 normal Not Available [facility] ([facility]) [address] [place], [address], 11/28/2024 18:38:02 11/18/19 25 11/18/2024 CBC WITH DIFFE RENTI AL/PL ATELE T MCH 29.8 pg 26.6-3 3.0 normal Not Available [facility] ([facility]) [address] [place], [address], 11/28/2024 18:38:02 11/18/19 25 11/18/2024 CBC WITH DIFFE RENTI AL/PL ATELE T MCHC 32.8 g/dL 31.5-3 5.7 normal Not Available [facility] ([facility]) [address] [place], [address], 11/28/2024 18:38:02 11/18/19 25 11/18/2024 CBC WITH DIFFE RENTI AL/PL ATELE T RDW 12.5 % 11.7-1 5.4 Not Available [facility] ([facility]) [address] [facility], [place], [address], 11/28/2024 18:38:02 11/18/19 25 11/18/2024 CBC WITH DIFFE RENTI AL/PL ATELE T platelets 312 x10e3 /uL 150-45 0 normal Not Available [facility] ([facility]) [address] [facility], [place], [address], 11/28/2024 18:38:02 11/18/19 25 11/18/2024 CBC WITH DIFFE RENTI AL/PL ATELE T neutrophils 66 % not estab. normal Not Available [facility] ([facility]) [address] [facility], [place], [address], 11/28/2024 18:38:02 11/18/19 25 11/18/2024 CBC WITH DIFFE RENTI AL/PL ATELE T lymphs 23 % not estab. normal Not Available [facility] ([facility]) [address] [facility], [place], [address], 11/28/2024 18:38:02 11/18/19 25 11/18/2024 CBC WITH DIFFE RENTI AL/PL ATELE T monocytes 7 % not estab. normal Not Available [facility] ([facility]) [address] [facility], [place], [address], 11/28/2024 18:38:02 11/18/19 25 11/18/2024 CBC WITH DIFFE RENTI AL/PL ATELE T eos 3 % not estab. normal Not Available [facility] ([facility]) [address] [facility], [place], [address], 11/28/2024 18:38:02 11/18/19 25 11/18/2024 CBC WITH DIFFE RENTI AL/PL ATELE T basos 1 % not estab. normal Not Available [facility] ([facility]) [address] [facility], [place], [address], 11/28/2024 18:38:02 11/18/19 25 11/18/2024 CBC WITH DIFFE RENTI AL/PL ATELE T immature cells BLUNGER Not Available [facility] ([facility]) [address] [facility], [place], [address], 11/28/2024 18:38:02 11/18/19 25 11/18/2024 CBC WITH DIFFE RENTI AL/PL ATELE T neutrophils (absolute) 4.2 x10e3 /uL 1.4-7. 0 normal Not Available [facility] ([facility]) [address] [facility], [place], [address], 11/28/2024 18:38:02 11/18/19 25 11/18/2024 CBC WITH DIFFE RENTI AL/PL ATELE T lymphs (absolute) 1.5 x10e3 /uL 0.7-3. 1 normal Not Available [facility] ([facility]) [address] [place], [address], 11/28/2024 18:38:02 11/18/19 25 11/18/2024 CBC WITH DIFFE RENTI AL/PL ATELE T monocytes(ab solute) 0.5 x10e3 /uL 0.1-0. 9 normal Not Available [facility] ([facility]) [address] [facility], [place], [address], 11/28/2024 18:38:02 11/18/19 25 11/18/2024 CBC WITH DIFFE RENTI AL/PL ATELE T eos (absolute) 0.2 x10e3 /uL 0.0-0. 4 normal Not Available [facility] ([facility]) [address] [place], [address], 11/28/2024 18:38:02 11/18/19 25 11/18/2024 CBC WITH DIFFE RENTI AL/PL ATELE T baso (absolute) 0.1 x10e3 /uL 0.0-0. 2 normal Not Available [facility] ([facility]) [address] [facility], [place], [address], 11/28/2024 18:38:02 11/18/19 25 11/18/2024 CBC WITH DIFFE RENTI AL/PL ATELE T immature granulocytes 0 % not estab. Not Available [facility] ([facility]) [address] [facility], [place], [address], 11/28/2024 18:38:02 11/18/19 25 11/18/2024 CBC WITH DIFFE RENTI AL/PL ATELE T immature grans (abs) 0.0 x10e3 /uL 0.0-0. 1 Not Available [facility] ([facility]) [address] [facility], [place], [address], 11/28/2024 18:38:02 11/18/19 25 11/18/2024 CBC WITH DIFFE RENTI AL/PL ATELE T NRBC BLUNGER Not Available [facility] ([facility]) [address] [facility], [place], [address], 11/28/2024 18:38:02 11/18/19 25 11/18/2024 CBC WITH DIFFE RENTI AL/PL ATELE T hematology comments: BLUNGER Not Available [facility] ([facility]) [address] [facility], [place], [address], 11/28/2024 18:38:02 11/18/19 25 11/18/2024 COMP. METAB OLIC PANEL (14) glucose 78 mg/dL 70-99 normal Not Available [facility] ([facility]) [address] [place], [address], 11/28/2024 18:38:03 11/18/19 25 11/18/2024 COMP. METAB OLIC PANEL (14) BUN 7 mg/dL 6-24 normal Not Available [facility] ([facility]) [address] [facility] [place], [address], 11/28/2024 18:38:03 11/18/19 25 11/18/2024 COMP. METAB OLIC PANEL (14) creatinine 0.93 mg/dL 0.57-1 .00 normal Not Available [facility] ([facility]) [address] [facility] [place], [address], 11/28/2024 18:38:03 11/18/19 25 11/18/2024 COMP. METAB OLIC PANEL (14) eGFR 71 mL/mi n/1.7 3 >59 normal Not Available [facility] ([facility]) [address] [facility] [place], [address], 11/28/2024 18:38:03 11/18/19 25 11/18/2024 COMP. METAB OLIC PANEL (14) BUN/creatini ne ratio 8 9-23 below low normal Not Available [facility] ([facility]) [address] [facility], [place], [address], 11/28/2024 18:38:03 11/18/19 25 11/18/2024 COMP. METAB OLIC PANEL (14) sodium 138 mmol/ L 134-14 4 normal Not Available [facility] ([facility]) [address] [facility] [place], [address], 11/28/2024 18:38:03 11/18/19 25 11/18/2024 COMP. METAB OLIC PANEL (14) potassium 4.2 mmol/ L 3.5-5. 2 normal Not Available [facility] ([facility]) [address] [facility] [place], [address], 11/28/2024 18:38:03 11/18/19 25 11/18/2024 COMP. METAB OLIC PANEL (14) chloride 101 mmol/ L 96-106 normal Not Available [facility] ([facility]) [address] [facility] [place], [address], 11/28/2024 18:38:03 11/18/19 25 11/18/2024 COMP. METAB OLIC PANEL (14) carbon dioxide, total 24 mmol/ L 20-29 normal Not Available [facility] ([facility]) [address] [facility] [place], [address], 11/28/2024 18:38:03 11/18/19 25 11/18/2024 COMP. METAB OLIC PANEL (14) calcium 8.9 mg/dL 8.7-10 .2 normal Not Available [facility] ([facility]) [address] [place], [address], 11/28/2024 18:38:03 11/18/19 25 11/18/2024 COMP. METAB OLIC PANEL (14) protein, total 5.9 g/dL 6.0-8. 5 below low normal Not Available [facility] ([facility]) [address] [facility] [place], [address], 11/28/2024 18:38:03 11/18/19 25 11/18/2024 COMP. METAB OLIC PANEL (14) albumin 3.8 g/dL 3.8-4. 9 normal Not Available [facility] ([facility]) [address] [facility] [place], [address], 11/28/2024 18:38:03 11/18/19 25 11/18/2024 COMP. METAB OLIC PANEL (14) globulin, total 2.1 g/dL 1.5-4. 5 Not Available [facility] ([facility]) [address] [facility] [place], [address], 11/28/2024 18:38:03 11/18/19 25 11/18/2024 COMP. METAB OLIC PANEL (14) bilirubin, total 0.3 mg/dL 0.0-1. 2 normal Not Available [facility] ([facility]) [address] [facility] [place], [address], 11/28/2024 18:38:03 11/18/19 25 11/18/2024 COMP. METAB OLIC PANEL (14) alkaline phosphatase 155 IU/L 44-121 above high normal Not Available [facility] ([facility]) [address] [place], [address], 11/28/2024 18:38:03 11/18/19 25 11/18/2024 COMP. METAB OLIC PANEL (14) AST (SGOT) 22 IU/L 0-40 normal Not Available [facility] ([facility]) [address] [place], [address], 11/28/2024 18:38:03 11/18/19 25 11/18/2024 COMP. METAB OLIC PANEL (14) ALT (SGPT) 19 IU/L 0-32 normal Not Available [facility] ([facility]) [address] [place], [address], 11/28/2024 18:38:03 11/18/19 25 11/18/2024 LIPID PANEL cholesterol, total 179 mg/dL 100-19 9 normal Not Available [facility] ([facility]) [address] [place], [address], 11/28/2024 18:38:03 11/18/19 25 11/18/2024 LIPID PANEL triglyceride s 63 mg/dL 0-149 normal Not Available [facility] ([facility]) [address] [place], [address], 11/28/2024 18:38:03 11/18/19 25 11/18/2024 LIPID PANEL HDL cholesterol 95 mg/dL >39 normal Not Available [facility] ([facility]) [address] [place], [address], 11/28/2024 18:38:03 11/18/19 25 11/18/2024 LIPID PANEL VLDL cholesterol sharon 12 mg/dL 5-40 Not Available [facility] ([facility]) [address] [place], [address], 11/28/2024 18:38:03 11/18/19 25 11/18/2024 LIPID PANEL LDL chol calc ([facility]) 72 mg/dL 0-99 Not Available [facility] ([facility]) [address] [facility], [place], [address], 11/28/2024 18:38:03 11/18/19 25 11/18/2024 LIPID PANEL LDL calc comment: BLUNGER Not Available [facility] ([facility]) [address] [facility], [place], [address], 11/28/2024 18:38:03 11/18/19 25 11/27/2024 VITAM IN E vitamin E(alpha tocopherol) 10.7 mg/L 7.0-25 .1 Not Available [facility] ([facility]) [address] [facility], [place], [address], 11/28/2024 18:38:04 11/18/19 25 11/27/2024 VITAM IN E vitamin E(gamma tocopherol) 1.1 mg/L 0.5-5. 5 Refer ence inter vals for alpha and gamma -toco phero l deter mined from [facility] Ex[facility] natio n Surve y, 2004- 2005. Indiv idual s with alpha -toco phero l level s less than 5.0 mg/L are consi dered vitam in E defic ient. Not Available [facility] ([facility]) [address] [facility], [place], [address], 11/28/2024 18:38:04 11/18/19 25 11/18/2024 HEMOG LOBIN A1C hemoglobin A1C 5.4 % 4.8-5. 6 normal Predi abete s: 5.7 - 6.4 Diabe zoila: >6.4 Glyce carol contr ol for adult s with diabe zoila: <7.0 Not Available [facility] ([facility]) [address] [place], [address], 11/28/2024 18:38:05 11/18/19 25 11/18/2024 FOLAT E (FOLI C ACID) , SERUM folate (folic acid), serum >20.0 NG/mL >3.0 A serum folat e mikaela ntrat ion of less than 3.1 ng/mL is consi dered to repre sent clini sharon defic iency . Not Available [facility] ([facility]) [address] [facility], [place], [address], 11/28/2024 18:38:05 11/18/19 25 11/27/2024 VITAM IN A, SERUM vitamin A 32.1 ug/dL 20.1-6 2.0 Refer ence inter vals for vitam in A deter mined from [facility] inter nal studi es. Indiv idual s with vitam in A less than 20 ug/dL are consi dered vitam in A defic ient and those with serum mikaela ntrat ions less than 10 ug/dL are consi dered sever sandra defic ient. This test was devel oped and its perfo rmanc e anny cteri stics deter mined by [facility]. It has not been clear ed or appro sakina by the Food and Drug Admin istra tion. Not Available [facility] ([facility]) [address] [facility], [place], [address], 11/28/2024 18:38:06 11/18/19 25 11/18/2024 VITAM IN D, 25-HY DROXY vitamin D, 25-hydroxy 32.3 NG/mL 30.0-1 00.0 Vitam in D defic iency has been defin ed by the Insti tute of Medic ine and an Endoc rine Socie ty pract ice guide line as a level of serum 25-OH vitam in D less than 20 ng/mL (1,2) . The Endoc rine Socie ty went on to furth er defin e vitam in D insuf ficie ncy as a level betwe en 21 and 29 ng/mL (2). 1. IOM (Inst itute of Medic ine). 2009. Dieta ry refer ence intak es for calci um and D. Karis bunch [place]: [facility] . 2. Diapk mejia MF, Henry waller [place], Che off-F thierno i FARRELL, et al. Evalu ation , treat ment, and preve ntion of vitam in D defic iency : an Endoc rine Socie ty clini sharon pract ice guide line. JCEM. 2010; 96(7) :1911 -30. Not Available [facility] ([facility]) [address] [place], [address], 11/28/2024 18:38:06 11/18/19 25 11/23/2024 VITAM IN B1 (THIA MINE) , BLOOD vit. B1, whole blood 133.4 nmol/ L 66.5-2 00.0 Not Available [facility] ([facility]) [address] [place], [address], 11/28/2024 18:38:07 11/18/19 25 11/23/2024 METHY LMALO INDIGO ACID, SERUM methylmaloni c acid, serum 165 nmol/ L 0-378 Not Available [facility] ([facility]) [address] [place], [address], 11/28/2024 18:38:07 11/18/19 25 11/21/2024 COPPE R, SERUM OR PLASM A copper, serum or plasma 122 ug/dL 80-158 Detec tion Limit = 5 Not Available [facility] ([facility]) [address] [place], [address], 11/28/2024 18:38:08 11/18/19 25 11/21/2024 ZINC, PLASM A OR SERUM zinc, plasma or serum 56 ug/dL 44-115 normal Detec tion Limit = 5 Not Available [facility] ([facility]) [address] [place], [address], 11/28/2024 18:38:08 11/18/19 25 11/18/2024 PREAL BUMIN prealbumin 16 mg/dL 10-36 Not Available [facility] ([facility]) [address] [facility], [place], [address], 11/28/2024 18:38:09 11/18/19 25 11/28/2024 SELEN IUM, BLOOD selenium, blood 115 ug/L 100-34 0 Detec tion Limit = 10 Not Available [facility] ([facility]) [address] [facility], [place], [address], 11/28/2024 18:38:09 Result Notes None recorded. Problems Name Problem SNOMED Code Status Onset Date Resolution Date Notes Provider Name and Address Organization Details Recorded Time Ulcer of anastomosi s 585096290 Active 2023 Hilario Woods DNP, BINDER FOLDER OPERATOR, BLUNGER-C [address] , [place], [address] , [facility] & [place] 4 11:59:38 Hyperlipid emia 16247626 Active 2021 Hilario Woods DNP, SANGEETA, BLUNGER-C [address] , [place] [address] , [facility] & [place] 2 12:50:33 Hypothyroi dism 55849236 Active 2021 Hilario Woods DNP, SANGEETA, BLUNGER-C [address] , [place], [place], [address] [place] [address] , [facility] & [place] 2 12:50:39 History of sleeve gastrectom y 1691691621452 07 Active 2021 Hilario Woods DNP, SANGEETA, BLUNGER-C [address], [place], [address] , [facility] & [place] 2 12:51:22 Essential hypertensi on 94751102 Active 2021 Hilario Woods DNP, SANGEETA, BLUNGER-C [address], [place], [address] , [place] - [facility] - [place] & [place] 2 13:07:08 Iron deficiency anemia 77467700 Active 2021 Hilario Woods DNP, SANGEETA, BLUNGER-C [address], [place], [address] , [place] - [facility] [place] & [place] 2 13:18:48 Heartburn 48621041 Active 2021 Hilario Woods DNP, APRN, BLUNGER-C [address], [place], [address] , [place] - [facility] [place] & [place] 2 13:39:01 Disorder of function of stomach 169295683 Active 2021 Hilario Woods DNP, APRN, BLUNGER-C [address], [place], [address] , [place] - [facility] [place] & [place] 2 13:39:09 Morbid obesity 874084659 Active 2022 Hilario Woods DNP, APRN, BLUNGER-C [address], [place], [place], [address] [place] [address] , [place] - [facility] - [place] & [place] 3 09:30:50 Pre-surger y evaluation Active 2022 Hilario Woods DNP, APRN, BLUNGER-C [address], [place], [place], [address] [place] [address] , [place] - [facility] & [place] 3 09:32:01 Nausea 569133518 Active 2022 Hilario Woods DNP, APRN, BLUNGER-C [address], [place], [address] , [place] - [facility] & [place] 3 09:36:40 Unintentio nal weight gain 5840120478981 04 Active 2023 Hilario Woods DNP, APRN, BLUNGER-C [address], [place], [address] , [place] - [facility] [place] & [place] 4 12:27:34 Vomiting 004221533 Active 2023 Hilario Woods, DNP, BINDER FOLDER OPERATOR, BLUNGER-C [address], [place], [address] , [place] - [facility] [place] & [place] 4 14:01:05 Problem Notes None recorded. Procedures Surgical History Date Name Laterality Status Provider Name and Address Organization Details Recorded Time esophagogastroduodenoscopy completed Melanie Cortes [place] - [facility] [place] & [place] 3 09:26:22 Julio Cesar-en-Y gastrojejunostomy complete d Melanie Cortes [place] [facility] [place] & [place] 3 08:29:39 laparoscopic sleeve gastrectomy completed Melanie Cortes [place] - [facility] - [place] & [place] 2 13:00:35 fusion of joint of c ervical spine by anterior approach for deformity of cervical spine completed Melanie Cortes [place] [facility] [place] & [place] 2 13:01:48 revision of fusion o f cervical spine completed Melanie Cortes [place] - [facility] - [place] & [place] 2 13:02:08 Stimulation of spinal cord completed Melanie Cortes [place] [facility] [place] & [place] 2 13:02:22 esophagogastroduodenoscopy completed Melanie Cortes [place] [facility] [place] & [place] 2 13:02:28 Colonoscopy completed Melanie Cortes [place] - [facility] [place] & [place] 2 13:02:42 Hysterectomy completed Melanie Cortes [place] - [facility] - [place] & [place] 2 13:03:46 cardiac catheterization completed R ebecca Cortes [place] - [facility] - [place] & [place] 2 13:05:15 Imaging Results None recorded. Procedure Notes None recorded. Medical Equipment None Reported. Allergies No known drug allergies Medications Name Sig Start Date Stop Date Status Note LastModified by Organization Details LastModified Time amantadine HCl 100 mg tablet 03/31 completed Not Available Not Available Not Available cyclobenzap rine 10 mg tablet 11/17 completed Not Available Not Available Not Available levothyroxi ne 175 mcg tablet active Not Available Not Available Not Available Protonix 40 mg tablet,tita yed release Take 1 tablet(s) every day by oral route. 2024 active Not Available Not Available Not Avai lable Carafate 100 mg/mL oral suspension Take 10 mL 4 times a day by oral route for 30 days. 08/18 completed Not Available Not Available Not Available trazodone 50 mg tablet active Not Available Not Available Not Available Carafate 1 gram tablet Take 1 tablet(s) 4 times a day by oral route for 30 days. 2024 active Not Available Not Available Not Avai lable triamcinolo ne acetonide 0.5 % topical cream 09/12 completed Not Available Not Available Not Available atorvastati n 10 mg tablet active Not Available Not Available Not Available oxybutynin chloride ER 10 mg tablet,exte nded release 24 hr active Not Available Not Available Not Available fluconazole 200 mg tablet Take 1 tablet every day by oral route. 08/18 completed Not Available Not Available Not Available naltrexone 50 mg tablet 08/18 completed Not Available Not Available Not Available prednisone 20 mg tablet 11/17 completed Not Available Not Available Not Available amlodipine 2.5 mg tablet 11/17 completed Not Available Not Available Not Available metronidazo le 500 mg tablet 07/14 completed Not Available Not Available Not Available ciprofloxac in 500 mg tablet 07/14 completed Not Available Not Available Not Available sulfamethox azole 800 mg-trimetho prim 160 mg tablet 07/14 completed Not Available Not Available Not Available tramadol 50 mg tablet 08/18 completed Not Available Not Available Not Available spironolact one 25 mg tablet 12/13 completed Not Available Not Available Not Available glycerin (child) rectal suppository 07/14 completed Not Available Not Available Not Available famotidine 20 mg tablet Take 1 tablet every day by oral route at bedtime for 30 days. active Not Available Not Available No t Available amitriptyli ne 25 mg tablet active Not Available Not Available Not Available Lidoderm 5 % topical patch 07/14 completed Not Available Not Available Not Available ropinirole 0.25 mg tablet active Not Available Not Available Not Available sulfacetami de sodium 10 % eye drops 07/14 completed Not Available Not Available Not Available buspirone 10 mg tablet active Not Available Not Available Not Available lisinopril 10 mg tablet active Not Available Not Available Not Available levothyroxi ne 150 mcg tablet 03/31 completed Not Available Not Available Not Available gabapentin 300 mg capsule Take 1 capsule 3 times a day by oral route for 7 days. 05/08 completed Not Available Not Available Not Available omeprazole 20 mg capsule,del ayed release Take 1 capsule(s ) twice a day by oral route for 30 days. 12/18 completed Not Available Not Available Not Available levothyroxi ne 200 mcg tablet 03/26 completed Not Available Not Available Not Available mupirocin 2 % topical ointment 01/29 completed Not Available Not Available Not Available ergocalcife rol (vitamin D2) 1,250 mcg (50,000 unit) capsule active Not Available Not Available Not Available lisinopril 10 mg-hydrochl orothiazide 12.5 mg tablet 11/17 completed Not Available Not Available Not Available polyethylen e glycol 3350 17 gram/dose oral powder 07/14 completed Not Available Not Available Not Available methylpredn isolone 4 mg tablets in a dose pack 07/14 completed Not Available Not Available Not Available albuterol sulfate HFA 90 mcg/actuati on aerosol inhaler active Not Available Not Available Not Available celecoxib 100 mg capsule Take 1 capsule twice a day by oral route ] for 7 days. 06/04 completed Not Available Not Available Not Available ondansetron 4 mg disintegrat ing tablet Place 2 tablets twice a day by transling ual route as needed, for nausea. active Not Available Not Available No t Available Fiber-Lax 625 mg tablet 01/29 completed Not Available Not Available Not Available Promethegan 12.5 mg rectal suppository Insert 1 supposito ry every 4-6 hours by rectal route as needed, for nausea. 11/17 completed Not Available Not Available Not Available bupropion HCl XL 150 mg 24 hr tablet, extended release active Not Available Not Available Not Available duloxetine 60 mg capsule,del ayed release active Not Available Not Available Not Available pregabalin 75 mg capsule active Not Available Not Available Not Available B Complex 03/31 completed Not Available Not Available Not Available calcium citrate 2023 active Not Available Not Available Not Avai lable multivitami n active Not Available Not Available Not Available varenicline tartrate 1 mg tablet 06/04 completed Not Available Not Available Not Available varenicline tartrate 0.5 mg (11)-1 mg (42) tablets in a dose pack 11/17 completed Not Available Not Available Not Available GaviLyte-G 236 gram-22.74 gram-6.74 gram-5.86 gram oral solution 07/14 completed Not Available Not Available Not Available B12 03/31 completed Not Available Not Available Not Available iron ER 159 mg (45 mg iron) tablet,exte nded release 01/29 completed Not Available Not Available Not Available Slow Release Iron 142 mg (45 mg iron) tablet,exte nded release 08/18 completed Not Available Not Available Not Available Vraylar 1.5 mg capsule 01/29 completed Not Available Not Available Not Available Vraylar 3 mg capsule active Not Available Not Available N ot Available Ozempic 0.25 mg or 0.5 mg (2 mg/1.5 mL) subcutaneou s pen injector 01/29 completed Not Available Not Available Not Available baclofen 5 mg tablet 08/18 completed Not Available Not Available Not Available Rybelsus 7 mg tablet 01/29 completed Not Available Not Available Not Available Rybelsus 3 mg tablet 07/14 completed Not Available Not Available Not Available Ozempic 1 mg/dose (4 mg/3 mL) subcutaneou s pen injector 04/18 completed Not Available Not Available Not Available Vitals Date Recorded Body height Body temperature Heart rate Body mass index (BMI) Body weight Systolic blood pressure Diastolic blood pressure Provider Name and Address Organization Details Last Updated DateTime 4 160.02 cm 96.9 [degF] 59 /min 37.5 kg/m2 10499.8 6 g 131 mm[Hg] 83 mm[Hg] Antione Chávez-Bec jassi [place] [facility] 4 10:33:00 Date Recorded Body height Body temperature Body mass index (BMI) Body weight Heart rate Systolic blood pressure Diastolic blood pressure Provider Name and Address Organization Details Last Updated DateTime 4 160.02 cm 98.1 [degF] 35.8 kg/m2 31008.6 6 g 71 /min 119 mm[Hg] 78 mm[Hg] Mary FORDE [facility] & [place] 4 13:41:10 Date Recorded Body height Body temperature Body mass index (BMI) Body weight Heart rate Systolic blood pressure Diastolic blood pressure Provider Name and Address Organization Details Last Updated DateTime 4 160.02 cm 98.1 [degF] 39.8 kg/m2 623034. 92 g 64 /min 137 mm[Hg] 83 mm[Hg] Mary FORDE [facility] 4 11:41:06 Date Recorded Body height Body temperature Heart rate Body mass index (BMI) Body weight Systolic blood pressure Diastolic blood pressure Provider Name and Address Organization Details Last Updated DateTime 5 160.02 cm 96.3 [degF] 63 /min 44.2 kg/m2 211010. 37 g 153 mm[Hg] 81 mm[Hg] Mary FORDE [facility] 5 09:14:23 Social History Question Answer Notes LastModified by Organizat ion Details LastModified Time Tobacco Smoking Status [facility] 13:00:24 What Is Your Level Of Alcohol Consumption? None [email or web address] Information not available 07/14/2022 Do You Use Any Illicit Or Recreational Drugs? No [email or web address] Information not available 07/14/2022 Sex: Unknown Functional Status None recorded. Mental Status None recorded. Family History Nothing Reported. Medical History Condition Response Coronary Artery Disease Y Hypothyroidism Y Difficulty Swallowing Y Anxiety Disorder Y Muscle, Joint, or Bone Problems Y Vision or Eye Problems Y Arthritis Y High Cholesterol Y GI Problems Y Constipation Y Diabetes Y Reflux/GERD Y Hypertension Y Osteoporosis Y Gynecological HistoryNo gynecological history recorded. Obstetrics History GPAL:G 0 P 0 0 0 0 Past Encounters Encounter ID Performer Location Encounter Start Date Encounter Closed Date Diagnosis/Indication Diagnosis SNOMED-CT Code Diagnosis ICD10 Code Diagnosis Note [id number] Hilario Woods, DNP, BINDER FOLDER OPERATOR, BLUNGER-C [facility] [address] [place] [address] 07/14/2022 12:39:25 07/14/2022 14:44:14 History of bariatric surgical procedure 360384374 Z98.84 Advised qid intake 50% protein 5290-8537 calories/d y less than 100 carbs/dy Patient is to have bariatric vitamin lab panel. Patient was reassured on today's visit. Dialogue content in great detail regarding the benefits of proper diet as well as regular and routine exercise. In regards to exercise, we discussed reaching target heart rate for least 20 minutes 3 times a week. We also highlighte d the importance of staying well hydrated. Proper handwashin g was also encouraged . Patient was advised to keep in close contact with their primary care provider and/or any specialty provider (s). We will contact patient with any deficienci es. I will have dietitian speak with patient today History of gastrectomy 739015393 Z90.3 Patient is status post bariatric surgery and at increased risk for vitamin deficienci es and malnutriti on. Bariatric vitamin panel ordered today. Patient will be contacted to correct any vitamin deficienci es. Hyperlipidemia 65038769 E78.5 Hypothyroidism 15266668 E03.9 History of sleeve gastrectomy 7207910175 93068 Z90.3 Essential hypertension 52874502 I10 Iron defic iency anemia 45203020 D50.9 Heartburn 41008818 R12 GERD-patie nt was reassured. We discussed lifestyle modificati ons in patient-di rected therapy which are designed to decrease distal esophageal acid exposure. Plan is to continue current proton pump inhibitor. Other lifestyle modificati ons include elevating the head of the bed on 15 cm of blocks or sleep on a wedge-shap ed bolster. Patient was encouraged to consume smaller meals and do not eat for 3 hours prior to lying recumbent. Ultimately patient has been advised to avoid large, high fat meals and avoid foods that may aggravate the problem. I will request her EGD from since the on [facility]. Possible EGD with Dr. Flores. Disorder o f function of stomach 668027019 K31.89 [id number] Hilario Woods, DNP, BINDER FOLDER OPERATOR, BLUNGER-C [facility] [address] [facility] [place] [facility] [address] 01/29/2023 09:27:10 01/29/2023 09:52:58 History of bariatric surgical procedure 435007643 Z98.84 Advised qid intake 50% protein 3258-9361 calories/d y less than 100 carbs/dy Patient is to have bariatric vitamin lab panel. Patient was reassured on today's visit. Dialogue content in great detail regarding the benefits of proper diet as well as regular and routine exercise. In regards to exercise, we discussed reaching target heart rate for least 20 minutes 3 times a week. We also highlighte d the importance of staying well hydrated. Proper handwashin g was also encouraged . Patient was advised to keep in close contact with their primary care provider and/or any specialty provider (s). We will contact patient with any deficienci es. Offered dietitian visit with patient today, but pt declines at this time. History of gastrectomy 176005308 Z90.3 Patient is status post bariatric surgery and at increased risk for vitamin deficienci es and malnutriti on. Bariatric vitamin panel ordered today. Patient will be contacted to correct any vitamin deficienci es. Essential hypertension 73989427 I10 Hyperlipidemia 71581390 E78.5 Hypothyroidism 74714493 E03.9 Iron defic iency anemia 68284072 D50.9 Intentiona l weight loss 193079327 R63.8 Heartburn 88252726 R12 GERD-patie nt was reassured. We discussed lifestyle modificati ons in patient-di rected therapy which are designed to decrease distal esophageal acid exposure. Plan is to continue increase current proton pump inhibitor to twice a day. Will also add Famotidine at bedtime. Other lifestyle modificati ons include elevating the head of the bed on 15 cm of blocks or sleep on a wedge-shap ed bolster. Patient was encouraged to consume smaller meals and do not eat for 3 hours prior to lying recumbent. Ultimately patient has been advised to avoid large, high fat meals and avoid foods that may aggravate the problem. I will request her EGD from since the on a [place]. Possible EGD with Dr. Flores. Disorder o f function of stomach 528978768 K31.89 [id number] SHARONA Ruiz [facility] [address] [facility] [address] [place] [address] 03/26/2023 09:03:41 03/26/2023 10:01:27 Gastroesophageal reflux disease 843479140 K21.9 We discussed concerns of worsening gastroesop hageal reflux status post sleeve gastrectom y. Julio Cesar-en-Y gastric bypass is advised to ultimately resolve reflux diseaseDis cussed Julio Cesar-en-Y gastric bypass in depth including postoperat chitra vitamin concerns. The importance of daily vitamin supplement ation was discussed specifical ly common deficienci es with Julio Cesar-en-Y of iron B12 and B1/thiamin . We discussed lifelong contraindi cated medication including NSAIDs and steroids and specifical ly the risk for poor healing/le ak/anastom otic ulcer. Also discussed lifelong contraindi cation to tobacco/ni cotine usepatient will need cardiac clearance prior to revisional surgery History of gastrectomy 469000706 Z90.3 patient is to continue healthy bariatric diet. Continue routine vitamin supplement ation. We will request may results to complete our chart. Repeat bariatric labs needed approximat sandra May 2023 Iron defic iency anemia 32132862 D50.9 adequately supplement ed. Normal labs January 2023 Vitamin D deficiency 347 99012 E55.9 adequately supplement ed. Normal labs January 2023 [id number] Brennen Flores DO [facility] [address] [facility] [address] [place] [address] 04/18/2023 07:32:42 04/18/2023 12:14:27 Morbid obesity 021427897 E66.01 Pre-surger y evaluation 773838814 Z01.818 Postoperative pain 77411 9007 G89.18 Essential hypertension 26401486 I10 Heartburn 93435566 R12 Continue current PPI therapy. History of sleeve gastrectomy 9948396995 96111 Z90.3 Hyperlipidemia 80589172 E78.5 Hypothyroidism 98181213 E03.9 Iron defic iency anemia 89284354 D50.9 [id number] Hilario Woods, DNP, BINDER FOLDER OPERATOR, BLUNGER-C [facility] [address] [facility] [address] [place] [address] 05/08/2023 07:57:00 05/08/2023 09:41:43 History of bariatric surgical procedure 002830318 Z98.84 The patient is doing well. The patient is instructed to continue their vitamins as directed. They are to continue advancing their diet as directed.T tiki may start exercising but keep lifting less than 25 pounds for 2 more weeks. I will see them back in 3 weeks or one month from surgery. We will order their first set of labs at that time.I summarized the expectatio ns for the upcoming year. We will check labs at their one month visit from surgery, 3 months from surgery as well as at 6, 9, and 12 months from surgery. These labs will be ordered on the day of their appointmen t. They have the option to come to the appointmen t fasting and labs can be drawn that day at the hospital. If not, I expect these labs to be drawn within the week of ordering them. If they choose to have them drawn at another [facility] they are to make sure that the labs are sent to my office. These labs will be reviewed once received and the patient will be called with any significan t abnormalit ies and how they should be addressed. If they would like a copy of their labs they are welcome to request these and we will send a copy to them. If their labs and vitamin levels are adequate at 12 months then they will need lab checks every 6mth-12mth . They consent to understand this plan and agree to comply. Essential hypertension 68358045 I10 History of sleeve gastrectomy 2040455994 02082 Z90.3 Hyperlipidemia 20708208 E78.5 Hypothyroidism 58031574 E03.9 Iron defic iency anemia 06138381 D50.9 Intentiona l weight loss 570430537 R63.8 Nausea 297925030 R11.0 [id number] Hilario Woods, DNP, BINDER FOLDER OPERATOR, BLUNGER-C [facility] [address] [facility] [address] [place] [address] 06/04/2023 10:04:12 06/04/2023 10:37:37 History of bariatric surgical procedure 983726040 Z98.84 The patient is doing well. The patient is instructed to continue their vitamins as directed. They are to continue advancing their diet as directed.Krishna fairbanks may start exercising but keep lifting less than 25 pounds for 2 more weeks. I will see them back in 3 weeks or one month from surgery. We will order their first set of labs at that time.I summarized the expectatio ns for the upcoming year. We will check labs at their one month visit from surgery, 3 months from surgery as well as at 6, 9, and 12 months from surgery. These labs will be ordered on the day of their appointmen t. They have the option to come to the appointmen t fasting and labs can be drawn that day at the hospital. If not, I expect these labs to be drawn within the week of ordering them. If they choose to have them drawn at another [facility] they are to make sure that the labs are sent to my office. These labs will be reviewed once received and the patient will be called with any significan t abnormalit ies and how they should be addressed. If they would like a copy of their labs they are welcome to request these and we will send a copy to them. If their labs and vitamin levels are adequate at 12 months then they will need lab checks every 6mth-12mth . They consent to understand this plan and agree to comply. Intentiona l weight loss 496866895 R63.8 History of gastrectomy 159171975 Z90.3 Advised qid intake 50% protein 8606-4300 calories/d y less than 100 carbs/dy Patient is status post bariatric surgery and at increased risk for vitamin deficienci es and malnutriti on. Bariatric vitamin panel ordered today. Patient will be contacted to correct any vitamin deficienci es. Essential hypertension 48391641 I10 Hyperlipidemia 72176423 E78.5 Hypothyroidism 86169362 E03.9 Iron defic iency anemia 78250250 D50.9 Morbid obesity 845411589 E66.01 [id number] Hilario Woods, DNP, BINDER FOLDER OPERATOR, BLUNGER-C [facility] [address] [facility] [address] [place] [address] 09/12/2023 13:39:31 09/12/2023 14:11:00 History of bariatric surgical procedure 778899472 Z98.84 The patient is doing well. The patient is instructed to continue their vitamins as directed. They are to continue advancing their diet as directed.Krishna fairbanks may start exercising but keep lifting less than 25 pounds for 2 more weeks. I will see them back in 3 weeks or one month from surgery. We will order their first set of labs at that time.I summarized the expectatio ns for the upcoming year. We will check labs at their one month visit from surgery, 3 months from surgery as well as at 6, 9, and 12 months from surgery. These labs will be ordered on the day of their appointmen t. They have the option to come to the appointmen t fasting and labs can be drawn that day at the hospital. If not, I expect these labs to be drawn within the week of ordering them. If they choose to have them drawn at another [facility] they are to make sure that the labs are sent to my office. These labs will be reviewed once received and the patient will be called with any significan t abnormalit ies and how they should be addressed. If they would like a copy of their labs they are welcome to request these and we will send a copy to them. If their labs and vitamin levels are adequate at 12 months then they will need lab checks every 6mth-12mth . They consent to understand this plan and agree to comply. Intentiona l weight loss 661415126 R63.8 History of gastrectomy 976874259 Z90.3 Advised qid intake 50% protein 9361-2483 calories/d y less than 100 carbs/dy Long discussion today of InBody results including PBF(percen t body fat) SMM (skeletal muscle mass) Visceral fat level level BMR Segmental Fat Analysis and Segmental Lean Analysis. Encouraged pt to take minimal calories as per BMR and to anticipate changes in SMM and PBF values not just total weight. Follow-up with Repeat NANCY in 3mth suggested Patient is status post bariatric surgery and at increased risk for vitamin deficienci es and malnutriti on. Bariatric vitamin panel ordered today. Patient will be contacted to correct any vitamin deficienci es. Essential hypertension 55261140 I10 History of sleeve gastrectomy 0607761108 04442 Z90.3 Hyperlipidemia 41552084 E78.5 Hypothyroidism 04419010 E03.9 Iron defic iency anemia 63997602 D50.9 Morbid obesity 326551100 E66.01 [id number] Hilario Woods, DNP, BINDER FOLDER OPERATOR, BLUNGER-C [facility] Bariatric [facility] Adv Surg [address] [place] [address] [facility] [address] 12/14/2023 08:59:51 12/14/2023 09:38:34 History of bariatric surgical procedure 873702674 Z98.84 The patient is doing well. The patient is instructed to continue their vitamins as directed. They are to continue advancing their diet as directed.T tiki may start exercising but keep lifting less than 25 pounds for 2 more weeks. I will see them back in 3 weeks or one month from surgery. We will order their first set of labs at that time.I summarized the expectatio ns for the upcoming year. We will check labs at their one month visit from surgery, 3 months from surgery as well as at 6, 9, and 12 months from surgery. These labs will be ordered on the day of their appointmen t. They have the option to come to the appointmen t fasting and labs can be drawn that day at the hospital. If not, I expect these labs to be drawn within the week of ordering them. If they choose to have them drawn at another [facility] they are to make sure that the labs are sent to my office. These labs will be reviewed once received and the patient will be called with any significan t abnormalit ies and how they should be addressed. If they would like a copy of their labs they are welcome to request these and we will send a copy to them. If their labs and vitamin levels are adequate at 12 months then they will need lab checks every 6mth-12mth . They consent to understand this plan and agree to comply. Intentiona l weight loss 331538812 R63.8 History of gastrectomy 053497167 Z90.3 Advised qid intake 50% protein 6883-1740 calories/d y less than 100 carbs/dyLo ng discussion today of InBody results including PBF(percen t body fat) SMM (skeletal muscle mass) Visceral fat level level BMR Segmental Fat Analysis and Segmental Lean Analysis.E ncouraged pt to take minimal calories as per BMR and to anticipate changes in SMM and PBF values not just total weight.Fol low-up with Repeat NANCY in 3mth suggested. Patient would like to have dietitian call her rather than wait for a visit today. Patient is status post bariatric surgery and at increased risk for vitamin deficienci es and malnutriti on. Bariatric vitamin panel ordered today. Patient will be contacted to correct any vitamin deficienci es. Essential hypertension 92446534 I10 Hyperlipidemia 34439387 E78.5 Hypothyroidism 32037755 E03.9 Iron defic iency anemia 68956803 D50.9 Morbid obesity 108115057 E66.01 Unintentio nal weight gain 3199121994 98468 R63.[id number], LD [facility] n Bariatric s and Adv Surg [address] [facility] [address] [place] [address] 01/02/2024 11:58:38 01/02/2024 14:46:03 Morbid obesity 997055097 E66.01 BMI 36.7 Wt loss 9# [facility] 809409097 Z71.3 [id number] Hilario Woods, DNP, BINDER FOLDER OPERATOR, BLUNGER-C [facility] n Bariatric s and Adv Surg [address] [facility] [address] [place] [address] 03/31/2024 10:16:51 03/31/2024 11:18:28 History of bariatric surgical procedure 891466532 Z98.84 The patient is doing well. The patient is instructed to continue their vitamins as directed. They are to continue advancing their diet as directed.T jaquany may start exercising but keep lifting less than 25 pounds for 2 more weeks. I will see them back in 3 weeks or one month from surgery. We will order their first set of labs at that time.I summarized the expectatio ns for the upcoming year. We will check labs at their one month visit from surgery, 3 months from surgery as well as at 6, 9, and 12 months from surgery. These labs will be ordered on the day of their appointmen t. They have the option to come to the appointmen t fasting and labs can be drawn that day at the hospital. If not, I expect these labs to be drawn within the week of ordering them. If they choose to have them drawn at another [facility] they are to make sure that the labs are sent to my office. These labs will be reviewed once received and the patient will be called with any significan t abnormalit ies and how they should be addressed. If they would like a copy of their labs they are welcome to request these and we will send a copy to them. If their labs and vitamin levels are adequate at 12 months then they will need lab checks every 6mth-12mth . They consent to understand this plan and agree to comply. Intentiona l weight loss 284162376 R63.8 History of gastrectomy 436177596 Z90.3 Advised qid intake 50% protein 8239-9707 calories/d y less than 100 carbs/dyLo ng discussion today of InBody results including PBF(percen t body fat) SMM (skeletal muscle mass) Visceral fat level level BMR Segmental Fat Analysis and Segmental Lean Analysis.E ncouraged pt to take minimal calories as per BMR and to anticipate changes in SMM and PBF values not just total weight.Fol low-up with Repeat NANCY in 3mth suggested . I did offer dietitian visit today, patient declines at this time. Patient is status post bariatric surgery and at increased risk for vitamin deficienci es and malnutriti on. Bariatric vitamin panel ordered today. Patient will be contacted to correct any vitamin deficienci es. Essential hypertension 57776288 I10 Hyperlipidemia 74792856 E78.5 Hypothyroidism 29876240 E03.9 Iron defic iency anemia 91744074 D50.9 Unintentio nal weight gain 7103524302 37175 R63.5 Morbid obesity 264590350 E66.01 [id number] Hilario Woods, DNP, BINDER FOLDER OPERATOR, BLUNGER-C [facility]ariatric [facility] and Adv Surg [address] [facility] [address] [address] [place] [address] 04/14/2024 13:31:27 04/14/2024 15:48:01 History of bariatric surgical procedure 932589246 Z98.84 Intentiona l weight loss 479873960 R63.8 Essential hypertension 00255304 I10 Hyperlipidemia 80069020 E78.5 Hypothyroidism 70853540 E03.9 Iron defic iency anemia 33678033 D50.9 Vomiting 181810949 R11.1 0 Heartburn 38330988 R12 GERD-patie nt was reassured. We discussed lifestyle modificati ons in patient-di rected therapy which are designed to decrease distal esophageal acid exposure. Plan is to continue restart proton pump inhibitor to once a day. . Other lifestyle modificati ons include elevating the head of the bed on 15 cm of blocks or sleep on a wedge-shap ed bolster. Patient was encouraged to consume smaller meals and do not eat for 3 hours prior to lying recumbent. Ultimately patient has been advised to avoid large, high fat meals and avoid foods that may aggravate the problem. I will Proceed with ordering upper GI as well as EGD with possible dilatation .. [id number] Hilario Woods, DNP, BINDER FOLDER OPERATOR, BLUNGER-C [facility]ariatric [facility] Adv S[facility] [address] [place] [address] [facility] [address] 08/18/2024 11:29:14 08/18/2024 12:37:20 History of bariatric surgical procedure 378371784 Z98.84 Intentiona l weight loss 360212910 R63.8 History of gastrectomy 083108081 Z90.3 Advised qid intake 50% protein 8165-8631 calories/d y less than 100 carbs/dyLo ng discussion today of InBody results including PBF(percen t body fat) SMM (skeletal muscle mass) Visceral fat level level BMR Segmental Fat Analysis and Segmental Lean Analysis.E ncouraged pt to take minimal calories as per BMR and to anticipate changes in SMM and PBF values not just total weight.Fol low-up with Repeat NANCY in 3mth suggested. I did offer dietitian today, but pt declines at this time. Patient is status post bariatric surgery and at increased risk for vitamin deficienci es and malnutriti on. Bariatric vitamin panel ordered today. Patient will be contacted to correct any vitamin deficienci es. At [facility] risk of nutritional deficit 395684579 Z91.89 Essential hypertension 27714240 I10 Hyperlipidemia 00404900 E78.5 Hypothyroidism 09712972 E03.9 Iron defic iency anemia 64656525 D50.9 Ulcer of anastomosis 447 560148 K26.9 told to notify if tablets are expensive Heartburn 49066233 R12 GERD-patie nt was reassured. We discussed lifestyle modificati ons in patient-di rected therapy which are designed to decrease distal esophageal acid exposure. Plan is to not continue proton pump inhibitor to once a day. Will try Protonix. stay on h2 jazmine . Other lifestyle modificati ons include elevating the head of the bed on 15 cm of blocks or sleep on a wedge-shap ed bolster. Patient was encouraged to consume smaller meals and do not eat for 3 hours prior to lying recumbent. Ultimately patient has been advised to avoid large, high fat meals and avoid foods that may aggravate the problem. I would like for her to keep upcoming appt for UGI. Morbid obesity 458963952 E66.01 [id number] Hilario Woods, DNP, BINDER FOLDER OPERATOR, BLUNGER-C [facility] Adv S[facility] [address] [facility] [address] [facility] [address] 11/17/2024 08:59:09 11/18/2024 10:46:44 History of bariatric surgical procedure 613773943 Z98.84 Intentiona l weight loss 231627367 R63.8 History of gastrectomy 670949862 Z90.3 Advised qid intake 50% protein 5359-9594 calories/d y less than 100 carbs/dyLo ng discussion today of InBody results including PBF(percen t body fat) SMM (skeletal muscle mass) Visceral fat level level BMR Segmental Fat Analysis and Segmental Lean Analysis.E ncouraged pt to take minimal calories as per BMR and to anticipate changes in SMM and PBF values not just total weight.Fol low-up with Repeat NANCY in 3mth suggested. I would like for patient to see dietitian today. I also encouraged her to keep all follow-up appointmen ts scheduled with her specialty providers. Patient is status post bariatric surgery and at increased risk for vitamin deficienci es and malnutriti on. Bariatric vitamin panel ordered today. Patient will be contacted to correct any vitamin deficienci es. At [facility] risk of nutritional deficit 747607546 Z91.89 Essential hypertension 41044741 I10 Hyperlipidemia 60669254 E78.5 Hypothyroidism 13960661 E03.9 Iron defic iency anemia 65970613 D50.9 History of sleeve gastrectomy 3866887381 22729 Z90.3 Morbid obesity 497522052 E66.01 Unintentio nal weight gain 2509571695 89798 R63.[id number] [facility] [address] [place] [address] [facility] [address] 11/17/2024 16:09:54 11/17/2024 16:15:57 Dietary management surveillance 190030807 Z71.3 Health Concerns Section Related Observation LastModified by Organization Detai ls LastModified Time None Recorded Concern Status LastModified by Organization Details LastModified Time None Recorded Advance Directives Directive None Recorded Payers Encounter Date Sequence Insurance Name Policy Number Policy Rojas Covered Member ID Rojas Member ID Guarantor Name 03/31/2024 1 [employer] [place]MEDICAID REPLACEMENT - HMO) [id number] Bushra Baldwin [place] [id number] Bushra Nicolasa Tam[place] 04/14/2024 1 [employer] [place]AC[place] - HMO) [id number] Bushra J [place] [id number] Bushra J [place] 08/18/2024 1 [employer] [place]ICAID REPLAC[place] - HMO) [id number] Bushra Nicolasa [place] [id number] Bushra Nicolasa Tamika 11/17/2024 1 [employer] [place]ICAID REPLAC[place] - HMO) [id number] Bushra Baldwin [place] [id number] Bushra J [place] 11/17/2024 1 [employer] [place]MEDICAID REPLAC[place] - HMO) [id number] Bushra Baldwin [place] [id number] Bushra J [place] Notes Date Note Type Note Provider Name and Address Organization Details Recorded Time 03/31/2024 text/html Patient presents the office today for routine 11 month follow-up status post bariatric gastric revision of sleeve gastrectomy to Julio Cesar-en-Y gastric bypass surgery performed on 2022. Patient doing well. Reports q.i.d. small meal intake. Reports 50-60g/dy protein intake and good hydration.Patient is drinking 64 ounces of water a day.Daily Calories has not been tracking but est 1500-1800Taking routine vitamins as advised.Heartburn/ga stroesophageal reflux: deniesPt Denies : abdominal pain, prandial issues Nausea, Vomiting, bowel or bladder issuesTotal Weight gain Since last office visit has been 5.6 lbsPt is happy with their quality of life after Weight loss Surgery.Patient tells me that she has been eating a lot of candy that she buys for her grandchildren. She tells me that she does walk daily. She states that her primary care provider put her on Contrave but she took herself off this because it was making her feel tired. Since taking herself off this medication she feels better.Today's InBody reveals a skeletal muscle mass = 56.9 lb,body fat mass = 107.1 lb,BMI = 37.5Percent body fat = 50.5Basal Metabolic Rate = 1397 kilo calories Hilario Woods DNP, SANGEETA, BLUNGER-C [address], [place], [address], [facility] 03/31/2024 12:07:22 04/14/2024 text/html Patient presents the office today for an acute follow-up status post bariatric gastric revision of sleeve gastrectomy to Julio Cesar-en-Y gastric bypass surgery performed on 2022. Patient doing well. Reports q.i.d. small meal intake. Reports 60-70g/dy protein intake and good hydration.Patient is drinking 64 ounces of water a day.Daily Calories 1100Taking routine vitamins as advised.Heartburn/ga stroesophageal reflux: Daily for the past week. She has no longer taking PPI.Pt Denies : abdominal pain, prandial issues bowel or bladder issues. she did start having vomiting and diarrhea that started 1 week ago. She tells me that she gets nauseated but did have an issue eating a chili dog without the Masury.Total Weight loss Since last office visit has been 9 lbsPt is happy with their quality of life after Weight loss Surgery. Hilario Woods DNP, SANGEETA, BLUNGER-C [address], [place], [address], [facility] & [place] 04/14/2024 15:27:35 08/18/2024 text/html Patient presents the office today for routine follow-up status post bariatric gastric revision of sleeve gastrectomy to Julio Cesar-en-Y gastric bypass surgery performed on 2022. Patient doing well. Reports q.i.d. small meal intake. Reports >70g/dy protein intake and good hydration.Patient is drinking 64 ounces of water a day.Daily Calories has not been countingTaking routine vitamins as advised. Hx of Iron deficiencyHeartburn/ gastroesophageal reflux: occasional. She does not feel as though PPI is working. She has not had UGI yet. Had to reschedule it several times. It is now set up fro next week at [facility]. She could not afford carafate suspension. She did not tell me this until today.Pt Denies : abdominal pain, prandial issues Nausea, Vomiting, bowel or bladder issuesTotal Weight loss Since last office visit has been 17.6 lbsPt is happy with their quality of life after Weight loss Surgery. Today's InBody reveals a skeletal muscle mass = 59.3 lb,body fat mass = 117.1 lb,BMI = 39.8Percent body fat = 52.1Basal Metabolic Rate = 1425kilo calories Hilario Woods, DNP, BINDER FOLDER OPERATOR, BLUNGER-C [address] , [place], [address], [facility] & [place] 08/18/2024 13:02:08 11/17/2024 text/html RDN met w/ pt fo r annual f/up via Telehealth s/p RNY . Current Weight: 249.8#Wt hx: Has gained 20# since last visit Notes on weight: desires continued weight loss at this time Today's InBody reveals a skeletal muscle mass = 64.4 lb,body fat mass = 130.8 lb,BMI = 44.3Percent body fat = 52.4Basal Metabolic Rate = 1536 kilo calories Signs/SymptomsN/V/C/ D: denies Meds and labs reviewed.Notes - MVI, calcium, vit D Physical activity: none due to feet being swollen - recently taken off HCTZ and has been worse Tracking meal intakes: no Est. daily kcal intake: unsure Est. daily protein intake: unsure Est. daily fluid intake: 64 fluid oz Meal Frequency/Pattern: has been grazing and eating on starbursts. Reports that she cannot afford protein shakes. Drinks: water Foods Not Tolerated: none Additional notes/concerns: Has been under a lot of stress which has contributed to weight gain. Found a nodule on her lung and having some heart tests done. KATHERINE CID, RD [address], [place], [address], [facility] & [place] 11/17/2024 16:15:46 11/17/2024 text/html Patient presents the office today for routine follow-up status post bariatric gastric revision of sleeve gastrectomy to Julio Cesar-en-Y gastric bypass surgery performed on 2022. Patient doing well. Reports q.i.d. small meal intake. Reports has not been counting g/dy protein intake and good hydration.Patient is drinking 64 ounces of water a day.Daily Calories has not been countingTaking routine vitamins as advised. Hx of iron and Vit D deficiencyHeartburn/ gastroesophageal reflux: deniesPt Denies : abdominal pain, prandial issues Nausea, Vomiting, bowel or bladder issuesTotal Weight gain Since last office visit has been24.9 lbsPt is happy with their quality of life after Weight loss Surgery.cards took her off HCT.Z. IS to see him next Sunday due to swelling on her ankles. She has been seeing Dr. Fernandez in [place] at [facility]. She has been stress eating . Has been eating chips and candy (Starburst) and has been grazing all day . Patient tells me that she had 2 nerve blocks performed last month and is to follow-up on November 25. She also has seen Hematology last week for bruising on her hands. She basically was told that these are just age-related findings. Patient also tells me that she had a PET scan performed roughly 2 weeks ago at [facility]. She tells me that a 10 mm nodule was found on her right lung. She is seen pulmonology last week and she is to follow-up to have a repeat PET scan February 02. She has also been having some swelling in both of her lower legs. She is to follow-up with her primary care provider but she tells me that she will be seeing Cardiology and having a stress test, echo as well as a HOLLY next week. She will be seeing Dr. Bartlett. She has done a in-home sleep study test that was inconclusive. She will be having an actual sleep study performed at [facility] [place] tomorrow night. Today's InBody reveals a skeletal muscle mass = 64.4 lb,body fat mass = 130.8 lb,BMI = 44.3Percent body fat = 52.4Basal Metabolic Rate = 1536 kilo calories Hilario Woods, DNP, BINDER FOLDER OPERATOR, BLUNGER-C [address] [facility], [place], [address], [facility] - [place] & [place] 11/17/2024 09:42:51 OBGyn Episode No OBEpisode recorded.
--- OUTSIDE RECORDS SUMMARY | 2025-01-15 08:31 | XMS_ITS | Continuity of Care Document ---
Author Organization [place] - [facility] & [facility] Bariatrics and Adv Surg Address [address] [place] [address] Care Team Providers Care Investment Fund Manager Name Role Phone CATERINA FERNANDZE Primary Care Provider Assessment Encounter Date Assessment Date Assessment LastModified by Organization Details LastModified Time 11/17/2024 11/17/2024 A total of 10 minutes was spent with the pt today. ??? Recommendations: 1. Start tracking calories and protein with MarginLeft jessica 2. Aim for 1200 kcal per day and 65+ grams of protein 3. Try making own smoothies/shakes with a water/wastewater engineer, almond milk, fruit, and protein powder from the tub 4. Add in high protein snacks like cottage cheese dip, yogurt, turkey roll ups, cheese, nuts/seeds, etc. 5. Add in chair exercises 3 days/week 6. Schedule an appt with nurse psychologist at [facility] 7. F/U With RD As needed ??? Pt doing well overall. Addressed concerns today. Pt was reassured at today's visit. Pt verbally agreed to recommendations and goals. Denied further questions/concerns . ??? RDN will monitor weight loss, labs, meds, and lifestyle modifications. Will f/up as scheduled or PRN. Not available 11/17/2024 16:14:49 Plan of Treatment Reminders Order Date Submit Date Provider Last Modified By Organization Details Last Modified Time Details Appointments OV EST 20 025 08:00AM Hilario Woods, DNP, MEDICAID COLLECTION SPECIALIST, LINK MACHINE OPERATOR-C Not available Not available Not available Lab None record ed. Referral None record ed. Procedures None record ed. Surgeries None record ed. Imaging None record ed. Medication Orders None record ed. Patient TargetsNo targets recorded. Patient InstructionsNo instructions recorded. Reason for Referral None Reported. Problems Name Problem SNOMED Code Status Onset Date Resolution Date Notes Provider Name and Address Organization Details Recorded Time Ulcer of anastomosi s 810993854 Active 2023 Hilario Woods DNP, APRN, LINK MACHINE OPERATOR-C [address], [place], [address] , [facility] - [facility] & [place] 4 11:59:38 Hyperlipid emia 13631693 Active 2021 Hilario Woods DNP, APRN, LINK MACHINE OPERATOR-C [address], [place], [place], [address] [place] [address] , [facility] - [facility] & [place] 2 12:50:33 Hypothyroi dism 24686678 Active 2021 Hilario Woods DNP, APRN, LINK MACHINE OPERATOR-C [address], [place], [place], [address] [place] [address] , [facility] - [facility] & [place] 2 12:50:39 History of sleeve gastrectom y 2698409554107 07 Active 2021 Hilario Woods DNP, APRN, LINK MACHINE OPERATOR-C [address], [place], [address] [place] [address] , [facility] - [facility] & [place] 2 12:51:22 Essential hypertensi on 53932573 Active 2021 Hilario Woods DNP, APRN, LINK MACHINE OPERATOR-C [address], [place], [address] , [place] - [facility] & [place] 2 13:07:08 Iron deficiency anemia 76411409 Active 2021 Hilario Woods DNP, APRN, LINK MACHINE OPERATOR-C [address], [place], [address] [place] [address] , [facility] - [facility] & [place] 2 13:18:48 Heartburn 88577848 Active 2021 Hilario Woods DNP, APRN, LINK MACHINE OPERATOR-C [address], [place], [place], [address] [place] [address] , [place] - [facility] - [place] & [place] 2 13:39:01 Disorder of function of stomach 745653437 Active 2021 Hilario Woods DNP, APRN, LINK MACHINE OPERATOR-C [address], [place], [place], [address] [place] [address] , [place] - [facility] - [place] & [place] 2 13:39:09 Morbid obesity 747466385 Active 2022 Hilario Woods DNP, APRN, LINK MACHINE OPERATOR-C [address], [place], [place], [address] [place] [address] , [place] - [facility] - [place] & [place] 3 09:30:50 Pre-surger y evaluation Active 2022 Hilario Woods DNP, APRN, LINK MACHINE OPERATOR-C [address], [place], [place], [address] [place] [address] , [place] - [facility] - [place] & [place] 3 09:32:01 Nausea 334097937 Active 2022 Hilario Woods DNP, APRN, LINK MACHINE OPERATOR-C [address], [place], [place], [address] [place] [address] , [place] - [facility] - [place] & [place] 3 09:36:40 Unintentio nal weight gain 9754476628284 04 Active 2023 Hilario Woods DNP, APRN, LINK MACHINE OPERATOR-C [address], [place], [address] [place] [address] , [place] - [facility] - [place] & [place] 4 12:27:34 Vomiting 331632859 Active 2023 Hilario Woods DNP, APRN, LINK MACHINE OPERATOR-C [address], [place], [address] [place] [address] , [place] - [facility] - [place] & [place] 4 14:01:05 Problem Notes None recorded. Procedures Surgical History Date Name Laterality Status Provider Name and Address Organization Details Recorded Time esophagogastroduodenoscopy completed Melanie COOK [facility] & [place] 3 09:26:22 Julio Cesar-en-Y gastrojejunostomy complete d Melanie COOK - [place] & [place] 3 08:29:39 laparoscopic sleeve gastrectomy completed Melanie COOK [facility] & [place] 2 13:00:35 fusion of joint of c ervical spine by anterior approach for deformity of cervical spine completed Melanie COOK [facility] & [place] 2 13:01:48 revision of fusion o f cervical spine completed Melanie COOK [facility] & [place] 2 13:02:08 Stimulation of spinal cord completed Melanie COOK [facility] & [place] 2 13:02:22 esophagogastroduodenoscopy completed Melanie COOK [facility] & [place] 2 13:02:28 Colonoscopy completed Melanie COOK [facility] & [place] 2 13:02:42 Hysterectomy completed Melanie COOK [facility] & [place] 2 13:03:46 cardiac catheterization completed R liliam COOK [facility] & [place] 2 13:05:15 Imaging Results None recorded. Procedure [...] cm 96.3 [degF] 63 /min 44.2 kg/m2 978826. 37 g 153 mm[Hg] 81 mm[Hg] Mary Tovar [facility] 5 09:14:23 Social History Question Answer Notes LastModified by Organizat ion Details LastModified Time Tobacco Smoking Status Former Smoker Melanie leo, [facility] & [place] 07/14/2022 13:00:24 What Is Your Level Of Alcohol Consumption? None [email or web address] Information not available 07/14/2022 Do You Use Any Illicit Or Recreational Drugs? No [email or web address] Information not available 07/14/2022 Sex: Unknown Functional Status None recorded. Mental Status None recorded. Family History Nothing Reported. Medical History Condition Response Coronary Artery Disease Y GI Problems Y Hypothyroidism Y Difficulty Swallowing Y Constipation Y Anxiety Disorder Y Diabetes Y Muscle, Joint, or Bone Problems Y Vision or Eye Problems Y Arthritis Y Reflux/GERD Y High Cholesterol Y Hypertension Y Osteoporosis Y Gynecological HistoryNo gynecological history recorded. Obstetrics History GPAL:G 0 P 0 0 0 0 Past Encounters Encounter ID Performer Location Encounter Start Date Encounter Closed Date Diagnosis/Indication Diagnosis SNOMED-CT Code Diagnosis ICD10 Code Diagnosis Note [id number] Hilario Woods, DNP, MEDICAID COLLECTION SPECIALIST, LINK MACHINE OPERATOR-C [facility] Bariatric s and Adv Surg [address] [place] [address] 11/17/2024 08:59:09 11/18/2024 10:46:44 History of bariatric surgical procedure 369797666 Z98.84 Intentiona l weight loss 084585610 R63.8 History of gastrectomy 088769475 Z90.3 Advised qid intake 50% protein 6838-4891 calories/d y less than 100 carbs/dyLo ng [...] to correct any vitamin deficienci es. At [facility] risk of nutritional deficit 912353619 Z91.89 Essential hypertension 64500548 I10 Hyperlipidemia 73719211 E78.5 Hypothyroidism 85383196 E03.9 Iron defic iency anemia 40957566 D50.9 History of sleeve gastrectomy 5486771970 61119 Z90.3 Morbid obesity 235372308 E66.01 Unintentio nal weight gain 9742661704 68672 R63.[id number] [facility] Bariatric s and Adv Surg [address] [address] [place] [address] 11/17/2024 16:09:54 11/17/2024 16:15:57 Dietary management surveillance 099281261 Z71.3 Health Concerns Section Related Observation LastModified by Organization Detai ls LastModified Time None Recorded Concern Status LastModified by Organization Details LastModified Time None Recorded Payers Encounter Date Sequence Insurance Name Policy Number Policy Rojas Covered Member ID Rojas Member ID Guarantor Name 11/17/2024 1 [facility] (MEDICAID REPLACEMENT - HMO) [id number] Bushra Lundberg [id number] Bushra Lundberg Notes Date Note Type Note Provider Name and Address Organization Details Recorded Time 11/17/2024 text/html RDN met w/ pt fo r annual f/up via Telehealth s/p RNY . Current Weight: 249.8#Wt hx: Has gained 20# since last visit Notes on weight: desires continued weight loss at this time Today's InBody reveals a skeletal muscle mass = 64.4 lb,body fat mass = 130.8 lb,BMI = 44.3Percent body fat = 52.4Basal Metabolic Rate = 1536 kilo calories Signs/SymptomsN/V /C/D: denies Meds and labs reviewed.Notes - MVI, calcium, vit D Physical activity: none due to feet being swollen - recently taken off HCTZ and has been worse Tracking meal intakes: no Est. daily kcal intake: unsure Est. daily protein intake: unsure Est. daily fluid intake: 64 fluid oz Meal Frequency/Pattern : has been grazing and eating on starbursts. Reports that she cannot afford protein shakes. Drinks: water Foods Not Tolerated: none Additional notes/concerns: Has been under a lot of stress which has contributed to weight gain. Found a nodule on her lung and having some heart tests done. KATHERINE CID, RD [address], [place], [address], [facility] - [place] - [place] & [place] 11/17/2024 16:15:46 11/17/2024 text/html Patient presents the [...] advised. Hx of iron and Vit D deficiencyHeartbu rn/gastroesophage al reflux: deniesPt Denies : abdominal pain, prandial issues Nausea, Vomiting, bowel or bladder issuesTotal Weight gain Since last office visit has been24.9 lbsPt is happy with their quality of life after Weight loss Surgery.cards took her off HCT.Z. IS to see him next Sunday due to swelling on her ankles. She has been seeing Dr. Fernandez in [place] at [facility]. She has been stress eating [...] scan performed roughly 2 weeks ago at [facility]. She tells me that a 10 [...] having an actual sleep study performed at [facility] [place] tomorrow night. Today's InBody reveals a skeletal muscle mass = 64.4 lb,body fat mass = 130.8 lb,BMI = 44.3Percent body fat = 52.4Basal Metabolic Rate = 1536 kilo calories Hilario Woods, DNP, MEDICAID COLLECTION SPECIALIST, LINK MACHINE OPERATOR-C [address] [facility], [place], [address], [facility] - [place] & [place] 11/17/2024 09:42:51 OBGyn Episode No OBEpisode recorded.
--- OUTSIDE RECORDS SUMMARY | 2025-01-15 08:31 | XMS_ITS | Continuity of Care Document ---
Author Organization [facility] & [facility] Address [address] [place] [address] Care Team Providers Care Flatwork Tier Name Role Phone CATERINA FERNANDEZ Primary Care Provider Assessment No assessment recorded. Plan of Treatment Reminders Order Date Submit Date Provider Last Modified By Organization Details Last Modified Time Details Appointments OV EST 20 2024 08:00A Erick Woods, DNP, SALES ASSOCIATE KEY HOLDER, STEEL HEATER-C Not available Not available Not available Lab copper , serum or plasma 2024 025 [facility], [address], [address], [place], [address], 11/24/2024 12:50:10 seleni um, quanti tative , blood 2024 025 [facility]grud[facility], [address], [address], [place], [address], 11/24/2024 12:50:11 zinc, serum or plasma 2024 025 [facility]grud[facility], [address], [address], [place], [address], 11/24/2024 12:50:11 vitami n E, serum 2024 025 ahaugrudgrave s [facility], [address], [address], [place], [address], 11/24/2024 12:50:11 vitami n A (retin ol), serum 2024 025 ahaugrudgrave s [facility], [address], [address], [place], [address], 11/24/2024 12:50:11 prealb umin, serum 2024 025 ahaugrud[facility] s [facility], [address], [address], [place], [address], 11/24/2024 12:50:11 thiami ne, QN, blood 2024 025 ahaugr[facility], [address], [address], [place], [address], 11/24/2024 12:50:11 methyl malona te, QN, serum or plasma 2024 025 [facility], [address], [address], [place], [address], 11/24/2024 12:50:11 vitami n D, 25-hyd raul, total, serum 2024 025 ahaugrud[facility], [address], [address], [place], [address], 11/24/2024 12:50:11 CBC w/ auto diff 2024 025 [facility], [address], [address], [place], [address], 11/24/2024 12:50:11 CMP, serum or plasma 2024 025 [facility], [address], [address], [place], [address], 11/24/2024 12:50:11 lipid panel, serum 2024 [facility]25 [facility], [address], [address], [place], [address], 11/24/2024 12:50:12 HbA1c (hemog lobin A1c), blood 2024 025 [facility], [address], [address], [place], [address], 11/24/2024 12:50:11 TSH + free T4, serum 2024 025 [facility], [address], [address], [place], [address], 11/24/2024 12:50:12 iron + TIBC + ferrit in, serum 2024 025 [facility], [address], [address], [place], [address], 11/24/2024 12:50:11 folate , serum 2024 025 [facility], [address], [address], [place], [address], 11/24/2024 12:50:11 Referral None record ed. Procedures None record ed. Surgeries None record ed. Imaging None record ed. Medication Orders None record ed. Patient TargetsNo targets recorded. Patient InstructionsNo instructions recorded. Reason for Referral None Reported. Problems Name Problem SNOMED Code Status Onset Date Resolution Date Notes Provider Name and Address Organization Details Recorded Time Ulcer of anastomosi s 822570178 Active 2023 Hilario Woods, DNP, SALES ASSOCIATE KEY HOLDER, STEEL HEATER-C [address] [facility] [address], [place], [address] , [facility] & [place] 12/02/202 4 11:59:38 Hyperlipid emia 42280167 Active 2021 Hilario Woods DNP, SALES ASSOCIATE KEY HOLDER, STEEL HEATER-C [address] [place] [address], [place], [address] , [place] - [facility] - [place] & [place] 2 12:50:33 Hypothyroi dism 58104872 Active 2021 Hilario Woods DNP, SALES ASSOCIATE KEY HOLDER, STEEL HEATER-C [address] [place] [address], [place], [address] , [place] - [facility] - [place] & [place] 2 12:50:39 History of sleeve gastrectom y 4521217474097 07 Active 2021 Hilario Woods DNP, SALES ASSOCIATE KEY HOLDER, STEEL HEATER-C [address] [place], [place], [address] , [place] - [facility] - [place] & [place] 2 12:51:22 Essential hypertensi on 88143071 Active 2021 Hilario Woods DNP, SALES ASSOCIATE KEY HOLDER, STEEL HEATER-C [address], [place], [address] , [place] - [facility] - [place] & [place] 2 13:07:08 Iron deficiency anemia 19981227 Active 2021 Hilario Woods DNP, SALES ASSOCIATE KEY HOLDER, STEEL HEATER-C [address], [place], [address] , [place] - [facility] - [place] & [place] 2 13:18:48 Heartburn 17651969 Active 2021 Hilario Woods DNP, SALES ASSOCIATE KEY HOLDER, STEEL HEATER-C [address], [place], [address] , [place] - [facility] - [place] & [place] 2 13:39:01 Disorder of function of stomach 171283083 Active 2021 Hilario Woods DNP, SALES ASSOCIATE KEY HOLDER, STEEL HEATER-C [address], [place], [address] , [place] - [facility] - [place] & [place] 2 13:39:09 Morbid obesity 588206671 Active 2022 Hilario Woods DNP, SALES ASSOCIATE KEY HOLDER, STEEL HEATER-C [address], [place], [place], [address] [place] [address] , [place] - [facility] - [place] & [place] 3 09:30:50 Pre-surger y evaluation Active 2022 Hilario Woods DNP, SALES ASSOCIATE KEY HOLDER, STEEL HEATER-C [address], [place], [place], [address] [place] [address] , [place] - [facility] - [place] & [place] 3 09:32:01 Nausea 136681183 Active 2022 Hilario Woods DNP, SALES ASSOCIATE KEY HOLDER, STEEL HEATER-C [address], [place], [place], [address] [place] [address] , [place] - [facility] - [place] & [place] 3 09:36:40 Unintentio nal weight gain 2350685381434 04 Active 2023 Hilario Woods DNP, SALES ASSOCIATE KEY HOLDER, STEEL HEATER-C [address], [place], [place], [address] [place] [address] , [place] - [facility] - [place] & [place] 4 12:27:34 Vomiting 148712454 Active 2023 Hilario Woods DNP, SALES ASSOCIATE KEY HOLDER, STEEL HEATER-C [address], [place], [place], [address] [place] [address] , [place] - [facility] - [place] & [place] 4 14:01:05 Problem Notes None recorded. Procedures Surgical History Date Name Laterality Status Provider Name and Address Organization Details Recorded Time esophagogastroduodenoscopy completed Melanie Cortes [place] - [facility] - [place] & [place] 3 09:26:22 Julio Cesar-en-Y gastrojejunostomy complete d Melanie FORDE - [facility] - [place] & [place] 3 08:29:39 laparoscopic sleeve gastrectomy completed Melanie Cortes [place] - [facility] - [place] & [place] 2 13:00:35 fusion of joint of c ervical spine by anterior approach for deformity of cervical spine completed Melanie FORDE - [facility] & [place] 2 13:01:48 revision of fusion o f cervical spine completed Melanie COOK [facility] & [place] 2 13:02:08 Stimulation of spinal cord completed Melanie COOK - [place] & [place] 2 13:02:22 esophagogastroduodenoscopy completed Melanie COOK [facility] & [place] 2 13:02:28 Colonoscopy completed Melanie COOK [facility] & [place] 2 13:02:42 Hysterectomy completed Melanie COOK [facility] & [place] 2 13:03:46 cardiac catheterization completed R liliam COOK [facility] & [place] 2 13:05:15 Imaging Results None recorded. Procedure [...] cm 96.3 [degF] 63 /min 44.2 kg/m2 787798. 37 g 153 mm[Hg] 81 mm[Hg] [facility] 5 09:14:23 Social History Question Answer Notes LastModified by Organizat ion Details LastModified Time Tobacco Smoking Status Former Smoker Melanie Cortes [facility] 07/14/2022 13:00:24 What Is Your Level Of Alcohol Consumption? None [email or web address] Information not available 07/14/2022 Do You Use Any Illicit Or Recreational Drugs? No [email or web address] Information not available 07/14/2022 Sex: Unknown Functional Status None recorded. Mental Status None recorded. Family History Nothing Reported. Medical History Condition Response Diabetes Y Anxiety Disorder Y Coronary Artery Disease Y Muscle, Joint, or Bone Problems Y Vision or Eye Problems Y Arthritis Y Hypothyroidism Y GI Problems Y Difficulty Swallowing Y Constipation Y Reflux/GERD Y High Cholesterol Y Hypertension Y Osteoporosis Y Gynecological HistoryNo gynecological history recorded. Obstetrics History GPAL:G 0 P 0 0 0 0 Past Encounters Encounter ID Performer Location Encounter Start Date Encounter Closed Date Diagnosis/Indication Diagnosis SNOMED-CT Code Diagnosis ICD10 Code Diagnosis Note [id number] Hilario Woods, DNP, SALES ASSOCIATE KEY HOLDER, STEEL HEATER-C [facility] [address] [place] [address] 11/17/2024 08:59:09 11/18/2024 10:46:44 History of bariatric surgical procedure 359609267 Z98.84 Intentiona l weight loss 669881311 R63.8 History of gastrectomy 588899223 Z90.3 Advised qid intake 50% protein 4448-1095 calories/d y less than 100 carbs/dyLo ng [...] to correct any vitamin deficienci es. At [facility] risk of nutritional deficit 497432539 Z91.89 Essential hypertension 89683689 I10 Hyperlipidemia 86750903 E78.5 Hypothyroidism 41618363 E03.9 Iron defic iency anemia 41168101 D50.9 History of sleeve gastrectomy 3634919791 30183 Z90.3 Morbid obesity 900910263 E66.01 Unintentio nal weight gain 1861484254 [id number] [facility] [address] [place] [address] 11/17/2024 16:09:54 11/17/2024 16:15:57 Dietary management surveillance 945377907 Z71.3 Health Concerns Section Related Observation LastModified by Organization Detai ls LastModified Time None Recorded Concern Status LastModified by Organization Details LastModified Time None Recorded Payers Encounter Date Sequence Insurance Name Policy Number Policy Rojas Covered Member ID Rojas Member ID Guarantor Name 11/17/2024 1 [facility] (MEDICAID REPLACEMENT - HMO) [id number] Bushra Lundberg [id number] Bushra Baldwin Tamika Notes Date Note Type Note Provider Name [...] tests done. KATHERINE CID, RD [address], [place], [address], [facility] - [place] & [place] 11/17/2024 16:15:46 11/17/2024 text/html Patient presents the [...] She has been seeing Dr. Fernandez in [place] at [facility]. She has been stress eating . Has [...] scan performed roughly 2 weeks ago at [facility]. She tells me that a 10 mm [...] having an actual sleep study performed at [facility] [place] tomorrow night. Today's InBody reveals a skeletal muscle mass = 64.4 lb,body fat mass = 130.8 lb,BMI = 44.3Percent body fat = 52.4Basal Metabolic Rate = 1536 kilo calories Hilario Woods, DNP, SALES ASSOCIATE KEY HOLDER, STEEL HEATER-C [address] [place], [place], [address], [place] - [facility] - [place] & [place] 11/17/2024 09:42:51 OBGyn Episode No OBEpisode recorded.
--- NOTE | 2025-01-15 09:02 | A.OFFVIS_ITS ---
[facility] Disclaimer: The information contained in this section may have been updated after the patient was seen, as this information can be updated by other users. Medical History (Updated 01/08/25 @ 11:06 by Viviana Cortes RN) Abnormal findings on diagnostic imaging of heart and coronary circulation Abnormal nuclear cardiac imaging test Obesity Pulmonary emphysema Dyspnea on exertion Lung nodule Thyroiditis Diastolic dysfunction Thyroid disease History of gastroesophageal reflux (GERD) Atypical chest pain Bigeminy PAC (premature atrial contraction) Generalized anxiety disorder Recurrent major depression resistant to treatment Dysphagia Thyroiditis Metabolic syndrome Pre-diabetes Bilateral foot pain Abnormal weight Urinary incontinence Vitamin D deficiency Hypothyroidism Low back pain Knee pain Hyperlipidemia Hypertension Surgical History Status post gastric banding surgery Family History Other No significant family history Social History Smoking Status: Former smoker tobacco type: e-cigarettes second hand exposure: No alcohol intake: never substance use type: denies use current occupational status: other Travel in the last 8 weeks?: None household members: spouse housing: house number of children: 2 current occupational exposures/hazards: No caffeine: Yes Have you lived/traveled outside US in past 30 days?: No Contact w/someone who lives/traveled outside US past 30 days?: No Exposure to someone with infectious disease in past 14 days?: No Do you have a fever (greater than 100.4 F or 38 C)?: No Have you tested positive for COVID-19?: No Exposed to someone with COVID-19 in past 14 days?: No Do you have a sore throat?: No Do you have a cough?: No Do you have any weakness?: No Do you have any diarrhea?: No Are you experiencing any unusual bleeding?: No Do you have any muscle aches/pain?: No Do you have any abdominal pain?: No Are you experiencing loss of taste or smell?: No PM Subjective & Objective Subjective Subjective:: Patient is a pleasant 59-year-old female who presents today for follow-up. Today she rates her pain a 1 out of 10. She states that overall she is still been doing well following her bilateral SI injections as well as her stimulator programming. Patient states the pain is much more manageable between all of these interventions. Patient is prescribed pregabalin 75 mg twice a day and compounded cream from our office. Patient does make mention that she is scheduled for a cardiac cath tomorrow. She states that Dr. esquivel did tell her that she had to blockages. Her Edwin has been reviewed and is appropriate. Review of Systems: General: No recent weight changes, no fever, no sleep disturbances Respiratory: No cough, no shortness of air, no recurring pulmonary infections Cardiovascular/peripheral vascular: No chest pain, no palpitations, no edema, no shortness of breath Gastrointestinal: No new onset incontinence, normal bowel movements reported Genitourinary: No new onset incontinence Musculoskeletal: Low back pain Psychiatric: [Normal mood/affect] Neurological: [Denies weakness in extremities], [denies balance issues] Pain at rest (0-10 scale): 1 Objective Objective:: Physical Exam: General: Alert and oriented x3, no acute distress, pleasant and cooperative Lungs: Respirations even and unlabored, symmetrical chest expansion Eyes: PERRL Musculoskeletal: Flexion and extension of lumbar spine within normal limits Neurological: Speech clear, no gross sensory deficit Has patient had previous pain injection?: No Conservative treatment options previously tried: Home exercise plan Length of treatment: Longer than 12 weeks Meds Home Medications and Allergies Home Medications ?Medication ?Instructions ?Recorded ?Confirmed ?Type ergocalciferol (vitamin D2) 1,250 See Rx Instructions .Route 12/28/23 01/08/25 Rx mcg (50,000 unit) capsule .COMPLEX #14 caps cyclobenzaprine 10 mg tablet See Rx Instructions .Route 08/25/24 01/08/25 Rx .COMPLEX #30 tabs atorvastatin 10 mg tablet See Rx Instructions .Route 10/22/24 01/08/25 Rx .COMPLEX #90 tabs oxybutynin chloride 10 mg See Rx Instructions .Route 10/22/24 01/08/25 Rx tablet,extended release 24 hr .COMPLEX #90 tabs lisinopril 10 mg tablet 10 mg PO DAILY 90 days #90 tabs 10/28/24 01/08/25 Rx bupropion HCl 150 mg 24 hr tablet, 150 mg PO DAILY 11/07/24 01/08/25 History extended release pantoprazole 40 mg tablet,delayed 40 mg PO DAILY 11/07/24 01/08/25 History release sucralfate 1 gram tablet 1 g PO . 11/07/24 01/08/25 History levothyroxine 200 mcg capsule 200 mcg PO DAILY #30 caps 11/19/24 01/08/25 Rx varenicline tartrate 0.5 mg (11)-1 See Rx Instructions .Route 11/25/24 01/08/25 Rx mg (42) tablets in a dose pack .COMPLEX #53 tabs furosemide 40 mg tablet 40 mg PO DAILY #90 tabs 12/11/24 01/08/25 Rx amitriptyline 25 mg tablet 25 mg PO HS #90 tabs 12/18/24 01/08/25 Rx buspirone 10 mg tablet 10 mg PO TID 60 days #180 tabs 12/18/24 01/08/25 Rx cariprazine 3 mg capsule (Vraylar) 3 mg PO DAILY #30 caps 12/18/24 01/08/25 Rx duloxetine 60 mg capsule,delayed See Rx Instructions .Route 12/18/24 01/08/25 Rx release .COMPLEX #90 caps pregabalin 75 mg capsule 75 mg PO BID . #180 caps 12/22/24 01/08/25 Rx ropinirole 0.25 mg tablet See Rx Instructions .Route 12/22/24 01/08/25 Rx .COMPLEX #30 tabs albuterol sulfate 90 mcg/actuation 2 inh inhalation QID PRN shortness 12/26/24 01/08/25 Rx aerosol inhaler of breath or wheezing 90 days #8.5 grams aspirin 81 mg tablet,delayed 81 mg PO DAILY #30 tabs 01/08/25 01/08/25 Rx release (Adult Low Dose Aspirin) metoprolol succinate 25 mg 25 mg PO DAILY #90 tabs 01/08/25 01/08/25 Rx tablet,extended release 24 hr (Toprol XL) New Prescriptions to Start Prescriptions: Allergies Allergy/AdvReac Type Severity Reaction Status Date / Time adhesive tape Allergy Rash Verified 01/08/25 10:51 Assessment and Plan *Assessment and plan (1) Bilateral sacroiliitis: Status: Acute Category: Medical Code(s): M46.1 - Sacroiliitis, not elsewhere classified (2) Low back pain: Status: Chronic Qualifiers: Chronicity: chronic Back pain laterality: bilateral Sciatica presence: without sciatica Qualified Code(s): M54.5 - Low back pain Category: Medical Code(s): M54.50 - Low back pain, unspecified Plan Patient continues to do well currently and does not require any additional injection therapy at this time. I will make sure she has refills on her pregabalin. We will also continue to monitor and follow-up with her following her heart cath. Patient does have a tentative appointment already in March. Patient has been instructed to contact the clinic with any concerns before the next appointment. Dr. Wallis has reviewed this note and agrees with this plan of care. This note was dictated using voice recognition software and make contain errors or omissions. All injections are used with Lidocaine, Bupivacaine and dexamethasone. Occasionally urine drug screen is needed to verify patient's compliance with our office pain contract. This is ordered based off specific treatments related to chronic pain with the potential to abuse certain medications.
[2025-01-15 10:03] VITALS: BP 138/81; PULSE 65; RESP 18; O2SAT 95; BMI 43.4
== END 2025-01-15 23:59 | disposition home or self-care (01) ==
PROVIDERS: PCP Internal Medicine; Visit Provider Nurse Practitioner Family
DX: M46.1 Sacroiliitis, not elsewhere classified (principal); M54.50 Low back pain, unspecified; Z87.891 Personal history of nicotine dependence; Z79.899 Other long term (current) drug therapy
CPT/HCPCS: 99212; G0463

== ENCOUNTER 2025-01-16 08:38 | Day surgery (SDC) | payer MEDICAID, SELFPAY ==
[2025-01-16] VITALS (9 sets, daily range): BP systolic 110–147; BP diastolic 60–83; PULSE 45–72; RESP 18–20; TEMP 36.1; O2SAT 90–98; BMI 45.7
--- NOTE | 2025-01-16 07:02 | IR_ITS ---
APPROVED REPORT Patient Location: Outpatient PROCEDURES Left heart catheterization Left ventriculogram Selective coronary angiogram INDICATION Abnormal CCTA, Coronary artery disease Informed consent was obtained prior to the procedure. COMPLICATIONS none Estimated Blood Loss: less than 10ml TECHNIQUE One percent lidocaine used to anesthetize the right anterior aspect of the wrist. The right radial artery was accessed via the Seldinger technique. A 6 [place] sheath was placed in the right radial artery. 2.5 mg of Verapamil, 800 mcg of nitroglycerin, 1mg Lidocaine and 5000 U Heparin were given through the arterial sheath. The 6 [place] JL 3 catheter was also used to perform left heart catheterization, left ventriculogram and selective coronary angiogram. At the end of the procedure the sheath was removed good hemostasis was achieved using Traclet band, patient was transferred to the postop holding area in stable condition. ANGIOGRAPHIC RESULTS The left main artery Normal The left anterior descending artery Proximally normal with mid vessel 10% stenoses The circumflex artery Nondominant with proximal 20% calcified stenosis The right coronary artery Right coronary artery is dominant and has diffuse proximal mid vessel 20 to 30% stenoses The DAS ventriculogram reveals Normal 65% The left ventricular end-diastolic pressure 20 mmHg IMPRESSION Mild coronary artery disease as described above all of which is nonflow limiting Normal ejection fraction Borderline elevated LVEDP PLAN 1. Medical management for coronary artery disease Electronically signed by : Srinivas Bartlett MD 01/16/2025 13:02:58
[2025-01-16 09:02] LABS: Basophils % 0.6 % (0.1-2.0); Eosinophils # 0.2 Kmm3 (0.0-0.4); Eosinophils % 2.9 % (0.1-12.0); Hematocrit 43.1 % (37.0-47.0); Hemoglobin 13.9 g/dL (12.2-16.2); Lymphocytes # 1.5 K/mm3 (0.7-4.5); Lymphocytes % 20.8 % (10-50); Mean Corpuscular HGB Conc 32.3 g/dL (31.8-35.4); Mean Corpuscular Hemoglobin 29.6 pg (27.0-31.2); Mean Corpuscular Volume 91.9 fl (81-99); Mean Platelet Volume 9.5 fl (7.4-10.4); Monocytes # 0.4 K/mm3 (0.1-1.0); Monocytes % 5.7 % (1.7-9.3); Neutrophils % 69.7 % (37.0-80.0); Nucleated Red Blood Cells # 0 10^3/uL; Nucleated Red Blood Cells % 0 %; Platelet Count 303 K/mm3 (142-424); Red Blood Count 4.69 M/mm3 (4.20-5.40); Red Cell Distribution Width 13.3 % (11.5-17.5); Red Cell Distribution Width-SD 44.7 fL; White Blood Count 7.2 K/mm3 (4.8-10.8)
[2025-01-16 09:09] LABS: Chloride 105 mmol/L (98-107)
[2025-01-16 09:10] LABS: Potassium 3.8 mmoL/L (3.5-5.1); Sodium 138 mmol/L (136-145)
[2025-01-16 09:13] LABS: Blood Urea Nitrogen 7 mg/dl (7-17); Creatinine Clearance Estimated 56 mL/min (50-200); Estimated Glomerular Filt Rate 64 ml/min (>60); GFR (African American) 78 ML/MIN (>60); Glucose 96 mg/dl (74-100)
[2025-01-16 10:08] LABS: Anion Gap 6.8 mEq/L (5-15); Carbon Dioxide 30 mmol/L (22.0-30.0)
[2025-01-16] MEDS: LIDOCAINE 1% 10ML MDV 10 ML IJ (12:27)
[2025-01-16] MEDS: 0.9 % SODIUM CHLORIDE 500 ML 25 ML IV (12:27)
[2025-01-16] MEDS: NITROGLYCERIN 800MCG/8ML SYR (CATH LAB) 800 MCG IA (12:28)
[2025-01-16] MEDS: diphenhydrAMINE 50MG/ML VIAL 50 MG IV (12:28)
[2025-01-16] MEDS: VERAPAMIL 2.5MG/ML 2ML VIAL 2.5 MG IV (12:28)
[2025-01-16] MEDS: HEPARIN 1,000 UNITS/ML 10ML VIAL (CATH LAB) 5000 UNIT IV (12:28)
[2025-01-16] MEDS: HEPARIN 1,000 UNITS/500ML NS (CATH LAB) 3000 UNIT IV (12:28)
[2025-01-16] MEDS: MIDAZOLAM HCL 1MG/ML 5ML VIAL 1 MG IV (12:43)
[2025-01-16] MEDS: FENTANYL 100MCG/2ML VIAL 50 MCG IV (12:43)
[2025-01-16] MEDS: IOPAMIDOL-370 (76%);100ML BOTTLE 50 ML IV (15:31)
== END 2025-01-16 14:52 | disposition home or self-care (01) ==
PROVIDERS: PCP Internal Medicine; Visit Provider Internal Medicine
PROC: 4A023N7 Measurement of Cardiac Sampling and Pressure, Left Heart, Percutaneous Approach (ICD-10-PCS; CPT 93452; principal; 2025-01-16 10:00)
DX: R93.1 Abnormal findings on diagnostic imaging of heart and coronary circulation (principal); E66.01 Morbid (severe) obesity due to excess calories; R06.00 Dyspnea, unspecified; J43.8 Other emphysema; E03.9 Hypothyroidism, unspecified; E78.5 Hyperlipidemia, unspecified; K21.9 Gastro-esophageal reflux disease without esophagitis; I73.9 Peripheral vascular disease, unspecified; I70.0 Atherosclerosis of aorta; R06.02 Shortness of breath; I11.9 Hypertensive heart disease without heart failure; I20.89 Other forms of angina pectoris; R91.1 Solitary pulmonary nodule; E06.9 Thyroiditis, unspecified; Z91.048 Other nonmedicinal substance allergy status; Z79.890 Hormone replacement therapy; Z68.42 Body mass index [BMI] 45.0-49.9, adult; Z79.899 Other long term (current) drug therapy; Z98.84 Bariatric surgery status; Z87.891 Personal history of nicotine dependence
CPT/HCPCS: 80048; 85025; 93452; 99152; C1725; C1769; J1200; J1644; J3010; Q9967

== ENCOUNTER 2025-01-27 14:19 | Outpatient (CLI) | payer MEDICAID, SELFPAY ==
--- OUTSIDE RECORDS SUMMARY | 2025-01-27 14:22 | XMS_ITS | Data Portability ---
Author Organization MAURISIO PEMA Marte MASPETH CLOSED Address [address] [place] [address] Care Team Providers Care Smart Grid Engineer Name Role Phone YAMILETH ZAVALETA Referring Provider ASHISH ATKINSON Primary Care Provider [phone] Assessment Encounter Date Assessment Date Assessment LastModified by Organization Details LastModified Time 2021 2021 HPI: Ms. Lundberg is a 56yo ? female with history of spinal cord stimulator, pain management for low back pain, status post C4-5, C5-6 ACDF on 10/06/20 here for second follow-up appointment with new AP lateral cervical x-rays. She says her pain is coming back in her neck and right upper extremity, accompanied by numbness, tingling, weakness which is slowly worsening but is not as bad as it was preoperatively. She takes gabapentin 400 mg 4 times a day, ibuprofen, Tylenol, and her largest bother is the numbness/tinglin g/weakness in her right upper extremity, including all in all of her fingers.? PHYSICAL EXAM: Hyperreflexia all extremities, no signs of myelopathy. Anterior cervical incision looks great, no erythema, swelling, induration. IMAGING: I have reviewed the images personally and read the radiologist's report. AP lateral cervical x-ray: No issues noted, hardware intact, in place. ASSESSMENT: Dr. Melendez also saw this patient. There is some concern of adjacent level disease for any fusion, though it would be uncommon for her to occur this early. Need to check cervical MRI to verify. If cervical MRI does not clearly show an issue, plan for right upper extremity EMG. PLAN: Cervical MRI with and without contrast, we'll call with results. We have updated her contact information to get the correct phone number this time. We'll base further plan on cervical MRI. If adjacent level disease is severe, may need to extend fusion surgically. ADDENDUM 03/07/21 Choco Melissa PA-C Spoke with patient on phone, relayed results of her MRI and EMG. MRI showed no significant issues at C4-6 with the prior fused levels, but showed moderate bilateral foraminal stenosis at C6-7 versus the mild stenosis noted on preop MRI. We ordered an EMG which then showed a C7 right radiculopathy. Dr. Melendez therefore recommends extending fusion to C6-7, with removal of the 2-level C4-6 plate and replacement with a 3-level plate since that level is likely still undergoing bony fusion. She wants to move ahead with extension of the fusion to C6-7. Discussed the procedure with her at length including procedure, recovery, outcomes, and risks and she understood and agreed. I emphasized that we would expect best outcomes with regards to upper extremity pain, less confident that her neck pain would improve, and not confident that her low back and leg pain would improve. She wishes to proceed. Portions of this note have been dictated with voice recognition technology and may include molder trimmer errors. Not available 03/07/2021 11:00:40 05/19/2021 05/19/2021 Mrs. Lundberg is progressing well after a C6-7 ACDF extension. Unfortunately she proved to need a 3 level ACDF. Her x-rays today look great. I gave her printed copy. We will see her back in 3 months with repeat x-rays of the cervical spine. [email or web address] Not available 05/19/2021 14:52:38 08/18/2021 08/18/2021 HPI: Ms. Lundberg is a 56-year-old female with history of C4-6 ACDF on 10/06/[address] Melendez him a C6-7 extension on 04/06/21, last seen here in 05/19/21, here for recheck and second postop visit with new AP lateral cervical x-ray [facility]. She says she still has a little bit of tightness on the left side of her neck and occasional headaches which resolved with Tylenol, but otherwise feels total relief of her upper extremity symptoms and is very happy with her progress since surgery. She is working with Dr. zavaleta regarding her low back, and there is plans to do a spinal cord stimulator trial soon. PHYSICAL EXAM: No neuro deficits noted, right anterior cervical surgery scar noted, well-healed IMAGING: I have reviewed the images personally with Dr. Melendez and read the radiologist's report. Cervical AP lateral x-ray: Hardware intact, in place. There appears to be some x-ray artifact at 1 of the C7 screws which makes it appear almost like there is a partial-thicknes s break in the screw, but Dr. Melendez feels it is more likely artifact ASSESSMENT: Dr. Melendez also saw this patient. Doing well since surgery, continues to do well. If there is an issue with one of the screws at C7, seems likely at this point that she will continue to fuse well without issues. Releasing her from activity restrictions, but told her to be smart about her body mechanics, use good form for lifting and try to minimize lifting heavy loads. PLAN: Releasing her at this time, she is welcome to call us as needed in the future if she has any other issues Not available 08/18/2021 11:28:26 Plan of Treatment Reminders Order Date Submit Date Provider Last Modified By Organization Details Last Modified Time Details Appointments None record ed. Lab None record ed. Referral None record ed. Procedures None record ed. Surgeries None record ed. Imaging None record ed. Medication Orders None record ed. Patient TargetsNo targets recorded. Patient InstructionsNo instructions recorded. Reason for Referral None Reported. Results Created Date Observation Date Name Description Value Unit Range Abnormal Flag Note LastModifiedBy Organization Detail LastModifiedTime 01/21/20 21 2021 XR, cervi sharon spine , 2 or 3 view [facility] [address] [facility] [place] [address] Monicaclara jennie Name: BIA schneider : [birth year] 67 Karlee schneider Orderi ng Provid er: PUJA MELENDEZ EXAM DATE: 2020 EXAM: XR CERVIC AL AP/LAT CLINIC AL INFORM ATION: Neck pain IMAGES PROVID ED: AP, latera l, open mouth and submen stefano views of the cervic al spine COMPAR ANIBAL: 2020 FINDIN GS: Previo us C4-C6 anteri or fixati on and interb jose fusion . No hardwa re compet ition. No loosen ing is noted. Alignm ent within normal limits . There is at least modera te DDD at C6-7. No prever tebral soft tissue swelli ng. No radiog raphic eviden ce of injury is seen. IMPRES ARIANA: Stable uncomp licate d appear ing C4-6 fusion Interp reted By: Edwin Stewart MD Electr onical ly Signed By: Edwin Stewart MD on 01/21/20 8:51 AM [facility] Radiology [facility] [address] [place] [address], [phone], 01/24/2021 17:29:17 02/01/20 21 01/31/2021 MRI, cervi sharon spine , w/wo contr ast [address] [place] [address] Karlee t Name: BIA Desir t : [birth year] 67 Paticlara t Orderi ng Provid er: PUJA Chantal PAPITO EXAM DATE: 2020 EXAM: MR CERVIC AL W/WO CONTRA ST HISTOR Y: 56-yea r-old female with right arm pain and tingli ng and prior cervic al fusion . COMPAR ANIBAL: Radiog raph dated 01/21/20. The patien t did not requir e sedati on for this exam. FINDIN GS: The patien t is status post discec oksana and anteri or fusion from C4 throug h C6. There is parama gnetic artifa ct from the anteri or fusion plate and screws . There is no eviden ce of compli cation . The cervic al spine is normal in alignm ent. There is no sublux ation. There is no fractu re or pathol ogic intrao sseous lesion . There is mild anteri or margin al osteop hytic spurri ng. No parasp inous soft tissue abnorm ality is identi fied. The visual ized receipt and report clerk ior fossa of the brain is normal in appear ance. There is focall y increa sed signal in the spinal cord at C5-C6 which may repres ent myelom alacia . The cranio cervic al juncti on is normal in appear ance. There are mild degene rative change s at C1-C2. C2-C3: There is no disc abnorm ality. There is no centra l canal stenos is. There is no neural forami nal stenos is. C3-C4: There is left greate r than right uncove rtebra l spurri ng with an associ ated disc/o steoph yte comple x. There is no centra l canal stenos is. There is mild left neural forami nal narrow ing. C4-C5: There is prior fusion with right greate r than left uncove rtebra l spurri ng. There is no centra l canal stenos is. There is modera te right neural forami nal narrow ing. C5-C6: There is prior fusion with residu al uncove rtebra l spurri ng. There is mild centra l canal stenos is. There is severe bilate ral neural forami nal stenos is. C6-C7: There is a diffus e disc/o steoph yte comple x. There is mild centra l canal stenos is. There is modera te bilate ral neural forami nal stenos is. C7-T1: There is a diffus e disc/o steoph yte comple x. There is no centra l canal narrow ing. There is modera te/sev ere bilate ral neural forami nal narrow ing. After intrav enous admini strati on of [address] ([facility] [address]- 0325-0 2), there is no abnorm al enhanc ement in the cervic al spine. There are mild degene rative change s in the upper thorac ic spine. IMPRES ARIANA: 1. The patien t is status post anteri or fusion from C4 throug h C6. There is increa sed signal in the spinal cord at C5-C6 consis tent with focal myelom alacia . 2. There is mild centra l canal narrow ing at C5-C6 and C6-C7. 3. There is modera te to severe bilate ral neural forami nal narrow ing from C5-C6 throug h C7-T1, and modera te right neural forami nal narrow ing at C4-C5. Interp reted By: Cherelle silveira MD Electr onical ly Signed By: Cherelle silveira MD on 021 11:05 AM [facility] Radiology [facility] [address] [place], [address], 02/01/2021 16:34:20 03/01/20 21 03/01/2021 nerve condu ction study /EMG, upper extre mity (PROC ) No observ ation record ed. [facility] [address] [place], [address], 03/28/2021 17:43:06 04/06/20 21 04/06/2021 fluor oscop y (PROC ) No observ ation record ed. [email or web address] [facility] Central Scheduling [address] [facility] , [place], [address], 04/08/2021 14:25:37 05/19/20 21 05/19/2021 XR, cervi sharon spine , [facility] [address] [place] [address] Paticlara t Name: BIA Schneider Paticlara t : [birth year] 67 Paticlara t Orderi ng Provid er: PUJA MELENDEZ EXAM DATE: 2020 EXAM: XR CERVIC AL AP/LAT CLINIC AL INFORM ATION: Neck pain IMAGES PROVID ED: AP, latera l, open mouth and submen stefano views of the cervic al spine COMPAR ANIBAL: 2020 FINDIN GS: The patien t has anteri or fusion extend ing from C4 to C7. No compli cation s are visibl e. No hardwa re fractu re or loosen ing. No prever tebral soft tissue swelli ng. The alignm ent is except table. No radiog raphic eviden ce of injury is seen. IMPRES ARIANA: Uncomp licate d appear ing C4-7 fusion Interp reted By: Edwin Stewart MD Electr onical ly Signed By: Edwin Stewart MD on 05/19/20 1:30 PM [facility] Radiology [facility] [address] [place], [address], 05/19/2021 18:02:04 08/18/2008/18/2021 XR, cervi sharon spine , 2 or 3 view [facility] [address] [place] [address] [place] [address] Karlee schneider Name: BIA schneider : [birth year] 67 Paticlara schneider Orderi ng Provid er: BHARTI MELISSA EXAM DATE: 2020 EXAM: XR CERVIC AL AP/LAT CLINIC AL INFORM ATION: Postop erativ e. IMAGES PROVID ED: AP, and latera l views of the cervic al spine. COMPAR ANIBAL: None. FINDIN GS AND IMPRES ARIANA: Anteri or spinal fusion is noted at C4-C7 level with compre ssion plate and screws . Surgic al hardwa re is satisf actori ly placed . No eviden ce of loosen ing or infect ion is seen. Other levels are normal . Interp reted By: Kimberly Langford MD Electr onical ly Signed By: Kimberly Langford MD on 3:54 PM [facility] Radiology [facility] [address] [place], [address], 08/19/2021 09:21:43 Result Notes None recorded. Procedures Surgical History Date Name Laterality Status Provider Name and Address Organization Details Recorded Time 021 ANTERIOR CERVICAL DISCECTOMY AND FUSION, LEVEL SPECIFIED, WITH HARDWARE (SURG) completed Candy Melendrez [facility] 04/11/2021 16:27:57 021 Electromyography (EMG) with Nerve Conduction Study (NCV) completed Yari Payan (Nicky) [facility] 03/01/2021 10:44:38 021 ANTERIOR CERVICAL DISCECTOMY AND FUSION, LEVEL SPECIFIED, WITH HARDWARE (SURG) completed Marta Smith [facility] 10/22/2020 08:13:57 021 ANTERIOR CERVICAL DISCECTOMY AND FUSION, LEVEL SPECIFIED, WITH HARDWARE (SURG) completed Marta Smith [facility] 11/05/2020 16:07:08 laparoscopic sleeve gastrectomy completed Nery Carranza [facility] 09/27/2020 09:27:30 [facility] 09:27:42 Imaging Results Imaging Date Name Status LastModified by Organiz ation Details LastModified Time 2021 XR, cervical spine, 2 or 3 view completed [facility] Radiology [facility] [address] [place] [address], [phone], 01/24/2021 17:29:17 01/31/2021 MRI, cervical spine, w/wo contrast completed [address], [address], 02/01/2021 16:34:20 03/01/2021 nerve conduction study/EMG, upper extremity (PROC) completed [facility] [address] [place] [address], [phone], 03/28/2021 17:43:06 04/06/2021 fluor[facility] (PROC) [facility] [address] [place], [address], 04/08/2021 14:25:37 05/19/2021 XR, cervical spine, 2 or 3 view completed [facility] [address] [place] [address], [phone], 05/19/2021 18:02:04 08/18/2021 XR, cervical spine, 2 or 3 view completed [facility] [address] [place] [address], [phone], 08/19/2021 09:21:43 Procedure Notes None recorded. Medical Equipment None Reported. Allergies No known drug allergies Medications Name Sig Start Date Stop Date Status Note LastModified by Organization Details LastModified Time cyclobenzapr ine 10 mg tablet Take 1 tablet twice a day by oral route as needed. active Not Available Not Available No t Available levothyroxin e 175 mcg tablet active Not Available Not Available Not Available ketoconazole 2 % shampoo active Not Available Not Available Not Available atorvastatin 10 mg tablet active Not Available Not Available Not Available oxybutynin chloride ER 10 mg tablet,exten ded release 24 hr active Not Available Not Available Not Available hydrocodone 5 mg-acetamino phen 325 mg tablet Take 1 tablet every 6 hours by oral route as needed. 2020 active Not Available Not Available Not Avai lable Medrol (Luiz) 4 mg tablets in a dose pack as directed 2020 active Not Available Not Available Not Avai lable gabapentin 400 mg capsule active Not Available Not Available Not Available amitriptylin e 25 mg tablet active Not Available Not Available Not Available hydrocodone 7.5 mg-acetamino phen 325 mg tablet Take 1 tablet every 6 hours by oral route as needed. 2020 active Not Available Not Available Not Avai lable cephalexin 500 mg capsule active Not Available Not Available Not Available triamcinolon e acetonide 0.1 % topical ointment active Not Available Not Available Not Available omeprazole 20 mg capsule,tita yed release active Not Available Not Available Not Available levothyroxin e 200 mcg tablet active Not Available Not Available Not Available ergocalcifer ol (vitamin D2) 1,250 mcg (50,000 unit) capsule active Not Available Not Available Not Available clobetasol 0.05 % topical ointment active Not Available Not Available Not Available lisinopril 10 mg-hydrochlo rothiazide 12.5 mg tablet active Not Available Not Available Not Available hydrocortiso ne 2.5 % topical ointment active Not Available Not Available Not Available diazepam 5 mg tablet Take 1 tablet twice a day by oral route. active Not Available Not Available No t Available duloxetine 30 mg capsule,tita yed release active Not Available Not Available Not Available pregabalin 75 mg capsule active Not Available Not Available Not Available Chantix 1 mg tablet active Not Available Not Available Not Available Suprep Bowel Prep Kit 17.5 gram-3.13 gram-1.6 gram oral solution active Not Available Not Available Not Available Chantix Starting Month Box 0.5 mg (11)-1 mg (42) tablets in dose pack active Not Available Not Available Not Available Fluzone Quad (PF) 60 mcg (15 mcg x 4)/0.5 mL IM syringe PHARMACIST ADMINISTERE D IMMUNIZATIO N ADMINISTERE D AT TIME OF DISPENSING active Not Available Not Available N ot Available Vitals Date Recorded Body height Body mass index (BMI) Body weight Systolic blood pressure Diastolic blood pressure Provider Name and Address Organization Details Last Updated DateTime 2021 160.02 cm 40.7 kg/m2 188920.2 5 g 142 mm[Hg] 80 mm[Hg] [facility] 09:31:14 Date Recorded Body height Provider Name an d Address Organization Details Last Updated DateTime 05/19/2021 160.02 cm Nery Carranza [facility] 10/2020 14:11:54 Date Recorded Body height Body mass index (BMI) Body weight Systolic blood pressure Diastolic blood pressure Provider Name and Address Organization Details Last Updated DateTime 08/18/2021 160.02 cm 40.7 kg/m2 201275.2 5 g 130 mm[Hg] 82 mm[Hg] [facility] 10:48:59 Social History None recorded. Functional Status None recorded. Mental Status None recorded. Family History Relationship Description Onset Age of this Age Resolved Age Notes LastModified by Organization Details LastModified Time Unspecified Relation Malignant neoplastic disease apurdie Not available 2020 09:26:30 Unspecified Relation Diabetes mellitus apurdie Not available 2020 09:26:36 Unspecified Relation Hypertensive disorder apurdie Not available 2020 09:26:43 Medical History Condition Response Arthritis Y Hypertension Y Hypothyroidism Y High Cholesterol Y Gynecological HistoryNo gynecological history recorded. Obstetrics History GPAL:G 0 P 0 0 0 0 Past Encounters Encounter ID Performer Location Encounter Start Date Encounter Closed Date Diagnosis/Indication Diagnosis SNOMED-CT Code Diagnosis ICD10 Code Diagnosis Note [id number] MARION MELENDEZ MD NEUROSURG [facility] [address] [place] [address] 09/27/2020 08:28:55 09/27/2020 10:49:12 Cervical spondylosis with myelopathy 03175881 M47.12 [id number] MARION MELENDEZ MD SURGERY SCHEDULE [address] [place] [address] 1 10/12/2020 09:31:36 10/12/2020 11:21:55 [id number] HEBERT GAMBOA PA-C NEUROSURG [facility] [address] [place] [address] 0 11/18/2020 10:05:27 11/23/2020 13:03:13 [id number] CHOCO MELISSA PA-C NEUROSURG [facility] [address] [place] [address] 0 2021 09:02:56 01/21/2021 15:06:30 Cervical radiculopathy 20160193 M54.12 [id number] [place] [address] [place] [address] 1 03/01/2021 08:58:19 03/01/2021 10:50:27 Cervical radiculopathy 25979413 M54.12 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 [id number] 74404 G56.01 [id number] MARION MELENDEZ MD SURGERY SCHEDULE [address] [place] [address] 1 04/14/2021 08:40:55 04/14/2021 13:24:31 [id number] MARION MELENDEZ MD NEUROSURG [facility] [address] [place] [address] 0 05/19/2021 13:30:28 05/20/2021 16:10:58 Postoperative care [id number] Z48.89 [id number] CHOCO MELISSA PA-C NEUROSURG [facility] [address] [place] [address] 0 08/18/2021 10:28:01 08/19/2021 09:17:33 Postoperative visit [id number] Z09 Health Concerns Section Related Observation LastModified by Organization Detai ls LastModified Time None Recorded Concern Status LastModified by Organization Details LastModified Time None Recorded Advance Directives Directive None Recorded Payers Insurance Date Sequence Insurance Name Policy Number Policy Rojas Covered Member ID Rojas Member ID Guarantor Name 05/15/2021 1 [employer] [place] (MEDICAID REPLACEMENT - HMO) [id number] Bushra Lundberg [id number] Bushra Lundberg 08/17/2021 1 [employer] [place] (MEDICAID REPLACEMENT - HMO) Bushra Lundberg [id number] Bushra Lundberg Notes Date Note Type Note Provider Name and Address Organization Details Recorded Time 2021 text/html Ms. Lundberg is a 56yo female with history of spinal cord stimulator, pain management for low back pain, status post C4-5, C5-6 ACDF on 10/06/20 here for second follow-up appointment with new AP lateral cervical x-rays. She says her pain is coming back in her neck and right upper extremity, coming by numbness, tingling, weakness which is slowly worsening but is not as bad as it was preoperatively. She takes gabapentin 400 mg 4 times a day, ibuprofen, Tylenol, and her largest bother is the numbness/tingling/w eakness in her right upper extremity, including all in all of her fingers. CHOCO MELISSA PA-C [address] [place] [address], [phone], [facility] 03/07/2021 11:00:45 05/19/2021 text/html Mrs. Lundberg is doing well after a C6-7 ACDF extension. Her previous C4-5 and C5-6 ACDF was October 06, 2020. She is doing well and progressing as expected. The numbness and pain in her arms has been relieved, she continues to have some hand numbness, perhaps related to carpal tunnel she presents today for her first postoperative visit with x-rays. MARION MELENDEZ MD [address] [place] [address], [phone], [facility] 05/19/2021 14:53:03 08/18/2021 text/html Ms. Lundberg is a 56-year-old female with history of C4-6 ACDF on 10/06/[address] Melendez him a C6-7 extension on 04/06/21, last seen here in 05/19/21, here for recheck and second postop visit with new AP lateral cervical x-ray [facility]. She says she still has a little bit of tightness on the left side of her neck and occasional headaches which resolved with Tylenol, but otherwise feels total relief of her upper extremity symptoms and is very happy with her progress since surgery. She is working with Dr. zavaleta regarding her low back, and there is plans to do a spinal cord stimulator trial soon. CHOCO MELISSA PA-C [address] [place], [address], [facility] 08/18/2021 11:30:25 OBGyn Episode No OBEpisode recorded.
--- OUTSIDE RECORDS SUMMARY | 2025-01-27 14:22 | XMS_ITS | Data Portability ---
Author Organization [place] [facility] [place] [facility] [place] [facility] Address [address] [place] [id number] Care Team Providers Care Capacity Management Specialist Name Role Phone CATERINA FERNANDEZ Primary Care Provider Assessment Encounter Date Assessment Date Assessment LastModified by Organization Details LastModified Time 11/17/2024 11/17/2024 A total of 10 minutes was spent with the pt today. ??? Recommendations: 1. Start tracking calories and protein with YellowBrck jessica 2. Aim for 1200 kcal per day and 65+ grams of protein 3. Try making own smoothies/shakes with a boom man, almond milk, fruit, and protein powder from the tub 4. Add in high protein snacks like cottage cheese dip, yogurt, turkey roll ups, cheese, nuts/seeds, etc. 5. Add in chair exercises 3 days/week 6. Schedule an appt with nurse psychologist at [facility] 7. F/U With RD As needed ??? Pt doing well overall. Addressed concerns today. Pt was reassured at today's visit. Pt verbally agreed to recommendations and goals. Denied further questions/concerns . ??? RDN will monitor weight loss, labs, meds, and lifestyle modifications. Will f/up as scheduled or PRN. [email or web address] Not available 11/17/2024 16:14:49 Plan of Treatment Reminders Order Date Submit Date Provider Last Modified By Organization Details Last Modified Time Details Appointments OV EST 20 2024 08:00A M Hilario Woods, DNP, [employer], VP [employer]-C Not available Not available Not available Lab copper , serum or plasma 2024 025 vilma carranza [facility], [address], [address], [place], [address], 11/24/2024 12:50:10 seleni um, quanti tative , blood 2024 025 [email or web address] s [facility], [address], [address], [place], [address], 11/24/2024 12:50:11 zinc, serum or plasma 2024 025 ahaugrudgrave s [facility], [address], [address], [place], [address], 11/24/2024 12:50:11 vitami n E, serum 2024 025 ahaugrudgrave s [facility], [address], [address], [place], [address], 11/24/2024 12:50:11 vitami n A (retin ol), serum 2024 025 ahaugrudgrave s [facility], [address], [address], [place], [address], 11/24/2024 12:50:11 prealb umin, serum 2024 025 ahaugrudgrave s [facility], [address], [address], [place], [address], 11/24/2024 12:50:11 thiami ne, QN, blood 2024 025 ahaugrudgrave s [facility], [address], [address], [place], [address], 11/24/2024 12:50:11 methyl malona te, QN, serum or plasma 2024 025 ahaugrudgrave s [facility], [address], [address], [place], [address], 11/24/2024 12:50:11 vitami n D, 25-hyd raul, total, serum 2024 025 [facility], [address], [address], [place], [address], 11/24/2024 12:50:11 CBC w/ auto diff 2024 025 [email or web address] s [facility], [address], [address], [place], [address], 11/24/2024 12:50:11 CMP, serum or plasma 2024 025 [facility], [address], [address], [place], [address], 11/24/2024 12:50:11 lipid panel, serum 2024 025 [facility] SYSTEM[facility], [address], [address], [place], [address], 11/24/2024 12:50:12 HbA1c (hemog lobin A1c), blood 2024 025 ahaugrudgrave s [facility], [address], [address], [place], [address], 11/24/2024 12:50:11 TSH + free T4, serum 2024 025 [facility], [address], [address], [place], [address], 11/24/2024 12:50:12 iron + TIBC + ferrit in, serum 2024 025 ahaugrudgrave s [facility], [address], [address], [place], [address], 11/24/2024 12:50:11 folate , serum 2024 025 ahaugrudgrave s [facility], [address], [address], [place], [address], 11/24/2024 12:50:11 copper , serum or plasma 2023 024 NATHAN [facility], [address], [address], [place], [address], 08/25/2024 14:37:42 seleni um, quanti tative , blood 2023 024 NATHAN [facility], [address], [address], [place], [address], 08/25/2024 14:37:45 zinc, serum or plasma 2023 024 NATHAN [facility], [address], [address], [place], [address], 08/25/2024 14:37:43 vitami n E, serum 2023 024 NATHAN [facility], [address], [address], [place], [address], 08/25/2024 14:37:36 vitami n A (retin ol), serum 2023 024 NATHAN [facility], [address], [address], [place], [address], 08/25/2024 14:37:39 prealb umin, serum 2023 024 NATHAN [facility], [address], [address], [place], [address], 08/25/2024 14:37:44 thiami ne, QN, blood 2023 024 NATHAN [facility], [address], [address], [place], [address], 08/25/2024 14:37:40 methyl malona te, QN, serum or plasma 2023 024 NATHAN [facility], [address], [address], [place], [address], 08/25/2024 14:37:41 vitami n D, 25-hyd raul, total, serum 2023 024 NATHAN [facility], [address], [address], [place], [address], 08/25/2024 14:37:39 lipid panel, serum 2023 024 NATHAN [facility], [address], [address], [place], [address], 08/25/2024 14:37:35 CBC w/ auto diff 2023 024 NATHAN [facility], [address], [address], [place], [address], 08/25/2024 14:37:33 CMP, serum or plasma 2023 024 NATHAN [facility], [address], [address], [place], [address], 08/25/2024 14:37:34 HbA1c (hemog lobin A1c), blood 2023 024 NATHAN [facility], [address], [address], [place], [address], 08/25/2024 14:37:37 TSH + free T4, serum 2023 024 NATHAN [facility], [address], [address], [place], [address], 08/25/2024 14:37:32 iron + TIBC + ferrit in, serum 2023 024 NATHAN [facility], [address], [address], [place], [address], 08/25/2024 14:37:31 folate , serum 2023 024 NATHAN [facility], [address], [address], [place], [address], 08/25/2024 14:37:38 copper , serum or plasma 2023 024 NATHAN [facility], [address], [address], [place], [address], 04/07/2024 12:36:58 seleni um, quanti tative , blood 2023 024 NATHAN [facility], [address], [address], [place], [address], 04/07/2024 12:37:00 zinc, serum or plasma 2023 024 NATHAN [facility], [address], [address], [place], [address], 04/07/2024 12:36:58 CBC w/ auto diff 2023 024 NATHAN [facility], [address], [address], [place], [address], 04/07/2024 12:36:53 CMP, serum or plasma 2023 024 NATHAN [facility], [address], [address], [place], [address], 04/07/2024 12:36:53 HbA1c (hemog lobin A1c), blood 2023 024 NATHAN [facility], [address], [address], [place], [address], 04/07/2024 12:36:55 vitami n D, 25-hyd raul, total, serum 2023 024 NATHAN [facility], [address], [address], [place], [address], 04/07/2024 12:36:56 vitami n E, serum 2023 024 NATHAN [facility], [address], [address], [place], [address], 04/07/2024 12:36:54 vitami n A (retin ol), serum 2023 024 NATHAN [facility], [address], [address], [place], [address], 04/07/2024 12:36:56 thiami ne, QN, blood 2023 024 NATHAN [facility], [address], [address], [place], [address], 04/07/2024 12:36:57 methyl malona te, QN, serum or plasma 2023 024 NATHAN [facility], [address], [address], [place], [address], 04/07/2024 12:36:57 prealb umin, serum 2023 024 NATHAN [facility], [address], [address], [place], [address], 04/07/2024 12:36:59 lipid panel, serum 2023 024 NATHAN [facility], [address], [address], [place], [address], 04/07/2024 12:36:54 TSH + free T4, serum 2023 024 NATHAN [facility], [address], [address], [place], [address], 04/07/2024 12:36:52 iron + TIBC + ferrit in, serum 2023 024 NATHAN [facility], [address], [address], [place], [address], 04/07/2024 12:36:52 folate , serum 2023 024 NATHAN [facility], [address], [address], [place], [address], 04/07/2024 12:36:55 Referral None record ed. Procedures None record ed. Surgeries esopha gogast roduod enosco py (SURG) 2023 024 [email or web address] Terese Higuera MD, [address], [address], [place], [address], 05/26/2024 10:46:31 Imaging RF, upper gastro intest inal tract + small bowel, w/ contra st PO 2023 024 [facility] (Central[facility] Sched[facility]), [address], [place], [address], 06/04/2024 16:14:18 Medication Orders Carafa te 1 gram tablet 2023 024 [facility], [address], [id number], 08/18/2024 12:05:16 Proton ix 40 mg tablet ,delay ed releas e 2023 024 [facility], [address] [facility] [address] [place], [place], [id number], 08/18/2024 12:11:12 omepra zole 20 mg capsul etita releas e 2023 024 [email or web address] [facility], [address] [place] [address] [place], [id number], 12/18/2024 11:02:39 promet hazine 12.5 mg rectal suppos itory 2023 025 NATHAN [facility], [address] [place], [place] [address], [id number], 11/17/2024 09:17:43 Patient TargetsNo targets recorded. Patient InstructionsNo instructions recorded. Reason for Referral None Reported. Results Created Date Observation Date Name Description Value Unit Range Abnormal Flag Note LastModifiedBy Organization Detail LastModifiedTime 03/31/2004/01/2024 FE+TI BC+FE R iron bind.cap.(TI BC) 255 ug/dL 250-45 0 normal Not Available [facility] ([facility]) [address] [place], [address], 04/07/2024 12:36:52 03/31/20 24 04/01/2024 FE+TI BC+FE R UIBC 196 ug/dL 131-42 5 normal Not Available [facility] ([facility]) [address] [place], [address], 04/07/2024 12:36:52 03/31/20 24 04/01/2024 FE+TI BC+FE R iron 59 ug/dL 27-159 normal Not Available [facility] ([facility]) [address] [place], [address], 04/07/2024 12:36:52 03/31/20 24 04/01/2024 FE+TI BC+FE R iron saturation 23 % 15-55 normal Not Available [facility] ([facility]) [address] [place], [address], 04/07/2024 12:36:52 03/31/20 24 04/01/2024 FE+TI BC+FE R ferritin 360 NG/mL 15-150 above high normal Not Available [facility] ([facility]) [address] [place], [address], 04/07/2024 12:36:52 03/31/20 24 04/01/2024 TSH+F REE T4 TSH 2.540 uIU/m L 0.450- 4.500 normal Not Available [facility] ([facility]) [address] [place], [address], 04/07/2024 12:36:52 03/31/20 24 04/01/2024 TSH+F REE T4 T4,free(dire ct) 1.65 NG/dL 0.82-1 .77 normal Not Available [facility] ([facility]) [address] [place], [address], 04/07/2024 12:36:52 03/31/20 24 04/01/2024 CBC WITH DIFFE RENTI AL/PL ATELE T WBC 7.3 x10e3 /uL 3.4-10 .8 normal Not Available [facility] ([facility]) [address] [place], [address], 04/07/2024 12:36:53 03/31/20 24 04/01/2024 CBC WITH DIFFE RENTI AL/PL ATELE T RBC 4.61 x10e6 /uL 3.77-5 .28 normal Not Available [facility] ([facility]) [address] [place], [address], 04/07/2024 12:36:53 03/31/20 24 04/01/2024 CBC WITH DIFFE RENTI AL/PL ATELE T hemoglobin 13.7 g/dL 11.1-1 5.9 normal Not Available [facility] ([facility]) [address] [place], [address], 04/07/2024 12:36:53 03/31/20 24 04/01/2024 CBC WITH DIFFE RENTI AL/PL ATELE T hematocrit 41.8 % 34.0-4 6.6 normal Not Available [facility] ([facility]) [address] [facility], [place], [address], 04/07/2024 12:36:53 03/31/20 24 04/01/2024 CBC WITH DIFFE RENTI AL/PL ATELE T MCV 91 fL 79-97 normal Not Available [facility] ([facility]) [address] [place], [address], 04/07/2024 12:36:53 03/31/20 24 04/01/2024 CBC WITH DIFFE RENTI AL/PL ATELE T MCH 29.7 pg 26.6-3 3.0 normal Not Available [facility] ([facility]) [address] [facility], [place], [address], 04/07/2024 12:36:53 03/31/20 24 04/01/2024 CBC WITH DIFFE RENTI AL/PL ATELE T MCHC 32.8 g/dL 31.5-3 5.7 normal Not Available [facility] ([facility]) [address] [place], [address], 04/07/2024 12:36:53 03/31/20 24 04/01/2024 CBC WITH DIFFE RENTI AL/PL ATELE T RDW 12.6 % 11.7-1 5.4 Not Available [facility] ([facility]) [address] [place], [address], 04/07/2024 12:36:53 03/31/20 24 04/01/2024 CBC WITH DIFFE RENTI AL/PL ATELE T platelets 372 x10e3 /uL 150-45 0 normal Not Available [facility] ([facility]) [address] [place], [address], 04/07/2024 12:36:53 03/31/20 24 04/01/2024 CBC WITH DIFFE RENTI AL/PL ATELE T neutrophils 64 % not estab. normal Not Available [facility] ([facility]) [address] [facility], [place], [address], 04/07/2024 12:36:53 03/31/20 24 04/01/2024 CBC WITH DIFFE RENTI AL/PL ATELE T lymphs 24 % not estab. normal Not Available [facility] ([facility]) [address] [facility], [place], [address], 04/07/2024 12:36:53 03/31/20 24 04/01/2024 CBC WITH DIFFE RENTI AL/PL ATELE T monocytes 7 % not estab. normal Not Available [facility] ([facility]) [address] [facility], [place], [address], 04/07/2024 12:36:53 03/31/20 24 04/01/2024 CBC WITH DIFFE RENTI AL/PL ATELE T eos 4 % not estab. normal Not Available [facility] ([facility]) [address] [facility], [place], [address], 04/07/2024 12:36:53 03/31/20 24 04/01/2024 CBC WITH DIFFE RENTI AL/PL ATELE T basos 1 % not estab. normal Not Available [facility] ([facility]) [address] [facility], [place], [address], 04/07/2024 12:36:53 03/31/20 24 04/01/2024 CBC WITH DIFFE RENTI AL/PL ATELE T immature cells VP INTEGRATION Not Available [facility] ([facility]) [address] [place], [address], 04/07/2024 12:36:53 03/31/20 24 04/01/2024 CBC WITH DIFFE RENTI AL/PL ATELE T neutrophils (absolute) 4.6 x10e3 /uL 1.4-7. 0 normal Not Available [facility] ([facility]) [address] [place], [address], 04/07/2024 12:36:53 03/31/20 24 04/01/2024 CBC WITH DIFFE RENTI AL/PL ATELE T lymphs (absolute) 1.8 x10e3 /uL 0.7-3. 1 normal Not Available [facility] ([facility]) [address] [place], [address], 04/07/2024 12:36:53 03/31/20 24 04/01/2024 CBC WITH DIFFE RENTI AL/PL ATELE T monocytes(ab solute) 0.5 x10e3 /uL 0.1-0. 9 normal Not Available [facility] ([facility]) [address] [place], [address], 04/07/2024 12:36:53 03/31/20 24 04/01/2024 CBC WITH DIFFE RENTI AL/PL ATELE T eos (absolute) 0.3 x10e3 /uL 0.0-0. 4 normal Not Available [facility] ([facility]) [address] [place], [address], 04/07/2024 12:36:53 03/31/20 24 04/01/2024 CBC WITH DIFFE RENTI AL/PL ATELE T baso (absolute) 0.1 x10e3 /uL 0.0-0. 2 normal Not Available [facility] ([facility]) [address] [place], [address], 04/07/2024 12:36:53 03/31/20 24 04/01/2024 CBC WITH DIFFE RENTI AL/PL ATELE T immature granulocytes 0 % not estab. Not Available [facility] ([facility]) [address] [place], [address], 04/07/2024 12:36:53 03/31/20 24 04/01/2024 CBC WITH DIFFE RENTI AL/PL ATELE T immature grans (abs) 0.0 x10e3 /uL 0.0-0. 1 Not Available [facility] ([facility]) [address] [facility], [place], [address], 04/07/2024 12:36:53 03/31/20 24 04/01/2024 CBC WITH DIFFE RENTI AL/PL ATELE T NRBC VP INTEGRATION Not Available [facility] ([facility]) [address] [facility], [place], [address], 04/07/2024 12:36:53 03/31/20 24 04/01/2024 CBC WITH DIFFE RENTI AL/PL ATELE T hematology comments: VP INTEGRATION Not Available [facility] ([facility]) [address] [facility], [place], [address], 04/07/2024 12:36:53 03/31/20 24 04/01/2024 COMP. METAB OLIC PANEL (14) glucose 86 mg/dL 70-99 normal Not Available [facility] ([facility]) [address] [facility], [place], [address], 04/07/2024 12:36:53 03/31/20 24 04/01/2024 COMP. METAB OLIC PANEL (14) BUN 6 mg/dL 6-24 normal Not Available [facility] ([facility]) [address] [facility], [place], [address], 04/07/2024 12:36:53 03/31/20 24 04/01/2024 COMP. METAB OLIC PANEL (14) creatinine 0.73 mg/dL 0.57-1 .00 normal Not Available [facility] ([facility]) [address] [facility], [place], [address], 04/07/2024 12:36:53 03/31/20 24 04/01/2024 COMP. METAB OLIC PANEL (14) eGFR 95 mL/mi n/1.7 3 >59 normal Not Available [facility] ([facility]) [address] [facility] [place], [address], 04/07/2024 12:36:53 03/31/20 24 04/01/2024 COMP. METAB OLIC PANEL (14) BUN/creatini ne ratio 8 9-23 below low normal Not Available [facility] ([facility]) [address] [facility] [place], [address], 04/07/2024 12:36:53 03/31/20 24 04/01/2024 COMP. METAB OLIC PANEL (14) sodium 132 mmol/ L 134-14 4 below low normal Not Available [facility] ([facility]) [address] [facility] [place], [address], 04/07/2024 12:36:53 03/31/20 24 04/01/2024 COMP. METAB OLIC PANEL (14) potassium 4.6 mmol/ L 3.5-5. 2 normal Not Available [facility] ([facility]) [address] [facility] [place], [address], 04/07/2024 12:36:53 03/31/20 24 04/01/2024 COMP. METAB OLIC PANEL (14) chloride 93 mmol/ L 96-106 below low normal Not Available [facility] ([facility]) [address] [facility] [place], [address], 04/07/2024 12:36:53 03/31/20 24 04/01/2024 COMP. METAB OLIC PANEL (14) carbon dioxide, total 27 mmol/ L 20-29 normal Not Available [facility] ([facility]) [address] [facility] [place], [address], 04/07/2024 12:36:53 03/31/20 24 04/01/2024 COMP. METAB OLIC PANEL (14) calcium 9.1 mg/dL 8.7-10 .2 normal Not Available [facility] ([facility]) [address] [place], [address], 04/07/2024 12:36:53 03/31/20 24 04/01/2024 COMP. METAB OLIC PANEL (14) protein, total 6.1 g/dL 6.0-8. 5 normal Not Available [facility] ([facility]) [address] [place], [address], 04/07/2024 12:36:53 03/31/20 24 04/01/2024 COMP. METAB OLIC PANEL (14) albumin 4.0 g/dL 3.8-4. 9 normal Not Available [facility] ([facility]) [address] [place], [address], 04/07/2024 12:36:53 03/31/20 24 04/01/2024 COMP. METAB OLIC PANEL (14) globulin, total 2.1 g/dL 1.5-4. 5 Not Available [facility] ([facility]) [address] [place], [address], 04/07/2024 12:36:53 03/31/20 24 04/01/2024 COMP. METAB OLIC PANEL (14) bilirubin, total 0.4 mg/dL 0.0-1. 2 normal Not Available [facility] ([facility]) [address] [place], [address], 04/07/2024 12:36:53 03/31/20 24 04/01/2024 COMP. METAB OLIC PANEL (14) alkaline phosphatase 137 IU/L 44-121 above high normal Not Available [facility] ([facility]) [address] [place], [address], 04/07/2024 12:36:53 03/31/20 24 04/01/2024 COMP. METAB OLIC PANEL (14) AST (SGOT) 15 IU/L 0-40 normal Not Available [facility] ([facility]) [address] [facility], [place], [address], 04/07/2024 12:36:53 03/31/20 24 04/01/2024 COMP. METAB OLIC PANEL (14) ALT (SGPT) 16 IU/L 0-32 normal Not Available [facility] ([facility]) [address] [facility], [place], [address], 04/07/2024 12:36:53 03/31/20 24 04/01/2024 LIPID PANEL cholesterol, total 190 mg/dL 100-19 9 normal Not Available [facility] ([facility]) [address] [place], [address], 04/07/2024 12:36:54 03/31/20 24 04/01/2024 LIPID PANEL triglyceride s 78 mg/dL 0-149 normal Not Available [facility] ([facility]) [address] [place], [address], 04/07/2024 12:36:54 03/31/20 24 04/01/2024 LIPID PANEL HDL cholesterol 78 mg/dL >39 normal Not Available [facility] ([facility]) [address] [facility], [place], [address], 04/07/2024 12:36:54 03/31/20 24 04/01/2024 LIPID PANEL VLDL cholesterol sharon 14 mg/dL 5-40 Not Available [facility] ([facility]) [address] [place], [address], 04/07/2024 12:36:54 03/31/20 24 04/01/2024 LIPID PANEL LDL chol calc ([facility]) 98 mg/dL 0-99 Not Available [facility] ([facility]) [address] [place], [address], 04/07/2024 12:36:54 03/31/20 24 04/01/2024 LIPID PANEL LDL calc comment: VP INTEGRATION Not Available [facility] ([facility]) [address] [facility], [place], [address], 04/07/2024 12:36:54 03/31/20 24 04/03/2024 VITAM IN E vitamin E(alpha tocopherol) 10.8 mg/L 7.0-25 .1 Not Available [facility] ([facility]) [address] [facility], [place], [address], 04/07/2024 12:36:54 03/31/20 24 04/03/2024 VITAM IN [...] in E defic ient. Not Available [facility] ([facility]) [address] [facility], [place], [address], 04/07/2024 12:36:54 03/31/20 24 04/01/2024 HEMOG LOBIN A1C hemoglobin A1C 5.3 % 4.8-5. 6 normal Predi abete s: 5.7 - 6.4 Diabe zoila: >6.4 Glyce carol contr ol for adult s with diabe zoila: <7.0 Not Available [facility] ([facility]) [address] [facility], [place], [address], 04/07/2024 12:36:55 03/31/20 24 04/01/2024 FOLAT E (FOLI C ACID) , SERUM folate (folic acid), serum 13.3 NG/mL >3.0 normal A serum folat e mikaela ntrat ion of less than 3.1 ng/mL is consi dered to repre sent clini sharon defic iency . Not Available [facility] ([facility]) [address] [facility], [place], [address], 04/07/2024 12:36:55 03/31/20 24 04/03/2024 VITAM IN [...] Drug Admin istra tion. Not Available [facility] ([facility]) [address] [facility], [place], [address], 04/07/2024 12:36:56 03/31/20 24 04/01/2024 VITAM IN [...] Karis bunch [place]: [facility] Press . 2. Dipak mejia [place], [place] waller [place], Che off-F thierno i FARRELL, et al. Evalu ation , treat ment, and preve ntion of vitam in D defic iency : an Endoc rine Socie ty clini sharon pract ice guide line. JCEM. 2010; 96(7) :1911 -30. Not Available [facility] ([facility]) [address] [place], [address], 04/07/2024 12:36:56 03/31/20 24 04/02/2024 VITAM IN B1 (THIA MINE) , BLOOD vit. B1, whole blood 128.8 nmol/ L 66.5-2 00.0 Not Available [facility] ([facility]) [address] [place], [address], 04/07/2024 12:36:57 03/31/20 24 04/07/2024 METHY LMALO INDIGO ACID, SERUM methylmaloni c acid, serum 153 nmol/ L 0-378 Not Available [facility] ([facility]) [address] [place], [address], 04/07/2024 12:36:57 03/31/20 24 04/02/2024 COPPE R, SERUM OR PLASM A copper, serum or plasma 117 ug/dL 80-158 Detec tion Limit = 5 Not Available [facility] ([facility]) [address] [place], [address], 04/07/2024 12:36:58 03/31/20 24 04/02/2024 ZINC, PLASM A OR SERUM zinc, plasma or serum 46 ug/dL 44-115 normal Detec tion Limit = 5 Not Available [facility] ([facility]) [address] [place], [address], 04/07/2024 12:36:58 03/31/20 24 04/01/2024 PREAL BUMIN prealbumin 18 mg/dL 10-36 Not Available [facility] ([facility]) [address] [place], [address], 04/07/2024 12:36:59 03/31/20 24 04/04/2024 SELEN IUM, BLOOD selenium, blood 166 ug/L 100-34 0 Detec tion Limit = 10 Not Available [facility] ([facility]) [address] [place], [address], 04/07/2024 12:36:59 08/18/20 24 08/19/2024 FE+TI BC+FE R iron bind.cap.(TI BC) 307 ug/dL 250-45 0 normal Not Available [facility] ([facility]) [address] [facility], [place], [address], 08/25/2024 14:37:31 08/18/20 24 08/19/2024 FE+TI BC+FE R UIBC 208 ug/dL 131-42 5 normal Not Available [facility] ([facility]) [address] [place], [address], 08/25/2024 14:37:31 08/18/20 24 08/19/2024 FE+TI BC+FE R iron 99 ug/dL 27-159 normal Not Available [facility] ([facility]) [address] [facility], [place], [address], 08/25/2024 14:37:31 08/18/20 24 08/19/2024 FE+TI BC+FE R iron saturation 32 % 15-55 normal Not Available [facility] ([facility]) [address] [place], [address], 08/25/2024 14:37:31 08/18/20 24 08/19/2024 FE+TI BC+FE R ferritin 421 NG/mL 15-150 above high normal Not Available [facility] ([facility]) [address] [place], [address], 08/25/2024 14:37:31 08/18/20 24 08/19/2024 TSH+F REE T4 TSH 1.170 uIU/m L 0.450- 4.500 normal Not Available [facility] ([facility]) [address] [place], [address], 08/25/2024 14:37:32 08/18/20 24 08/19/2024 TSH+F REE T4 T4,free(dire ct) 1.65 NG/dL 0.82-1 .77 normal Not Available [facility] ([facility]) [address] [place], [address], 08/25/2024 14:37:32 08/18/20 24 08/19/2024 CBC WITH DIFFE RENTI AL/PL ATELE T WBC 6.4 x10e3 /uL 3.4-10 .8 normal Not Available [facility] ([facility]) [address] [place], [address], 08/25/2024 14:37:32 08/18/20 24 08/19/2024 CBC WITH DIFFE RENTI AL/PL ATELE T RBC 4.49 x10e6 /uL 3.77-5 .28 normal Not Available [facility] ([facility]) [address] [place], [address], 08/25/2024 14:37:32 08/18/20 24 08/19/2024 CBC WITH DIFFE RENTI AL/PL ATELE T hemoglobin 13.4 g/dL 11.1-1 5.9 normal Not Available [facility] ([facility]) [address] [place], [address], 08/25/2024 14:37:32 08/18/20 24 08/19/2024 CBC WITH DIFFE RENTI AL/PL ATELE T hematocrit 40.9 % 34.0-4 6.6 normal Not Available [facility] ([facility]) [address] [place], [address], 08/25/2024 14:37:32 08/18/20 24 08/19/2024 CBC WITH DIFFE RENTI AL/PL ATELE T MCV 91 fL 79-97 normal Not Available [facility] ([facility]) [address] [place], [address], 08/25/2024 14:37:32 08/18/20 24 08/19/2024 CBC WITH DIFFE RENTI AL/PL ATELE T MCH 29.8 pg 26.6-3 3.0 normal Not Available [facility] ([facility]) [address] [facility], [place], [address], 08/25/2024 14:37:32 08/18/20 24 08/19/2024 CBC WITH DIFFE RENTI AL/PL ATELE T MCHC 32.8 g/dL 31.5-3 5.7 normal Not Available [facility] ([facility]) [address] [facility], [place], [address], 08/25/2024 14:37:32 08/18/20 24 08/19/2024 CBC WITH DIFFE RENTI AL/PL ATELE T RDW 12.5 % 11.7-1 5.4 Not Available [facility] ([facility]) [address] [facility], [place], [address], 08/25/2024 14:37:32 08/18/20 24 08/19/2024 CBC WITH DIFFE RENTI AL/PL ATELE T platelets 400 x10e3 /uL 150-45 0 normal Not Available [facility] ([facility]) [address] [facility], [place], [address], 08/25/2024 14:37:32 08/18/20 24 08/19/2024 CBC WITH DIFFE RENTI AL/PL ATELE T neutrophils 52 % not estab. normal Not Available [facility] ([facility]) [address] [facility], [place], [address], 08/25/2024 14:37:32 08/18/20 24 08/19/2024 CBC WITH DIFFE RENTI AL/PL ATELE T lymphs 34 % not estab. normal Not Available [facility] ([facility]) [address] [facility], [place], [address], 08/25/2024 14:37:32 08/18/20 24 08/19/2024 CBC WITH DIFFE RENTI AL/PL ATELE T monocytes 9 % not estab. normal Not Available [facility] ([facility]) [address] [facility], [place], [address], 08/25/2024 14:37:32 08/18/20 24 08/19/2024 CBC WITH DIFFE RENTI AL/PL ATELE T eos 4 % not estab. normal Not Available [facility] ([facility]) [address] [facility], [place], [address], 08/25/2024 14:37:32 08/18/20 24 08/19/2024 CBC WITH DIFFE RENTI AL/PL ATELE T basos 1 % not estab. normal Not Available [facility] ([facility]) [address] [facility], [place], [address], 08/25/2024 14:37:32 08/18/20 24 08/19/2024 CBC WITH DIFFE RENTI AL/PL ATELE T immature cells VP INTEGRATION Not Available [facility] ([facility]) [address] [place], [address], 08/25/2024 14:37:32 08/18/20 24 08/19/2024 CBC WITH DIFFE RENTI AL/PL ATELE T neutrophils (absolute) 3.4 x10e3 /uL 1.4-7. 0 normal Not Available [facility] ([facility]) [address] [place], [address], 08/25/2024 14:37:32 08/18/20 24 08/19/2024 CBC WITH DIFFE RENTI AL/PL ATELE T lymphs (absolute) 2.2 x10e3 /uL 0.7-3. 1 normal Not Available [facility] ([facility]) [address] [place], [address], 08/25/2024 14:37:32 08/18/20 24 08/19/2024 CBC WITH DIFFE RENTI AL/PL ATELE T monocytes(ab solute) 0.6 x10e3 /uL 0.1-0. 9 normal Not Available [facility] ([facility]) [address] [facility], [place], [address], 08/25/2024 14:37:32 08/18/20 24 08/19/2024 CBC WITH DIFFE RENTI AL/PL ATELE T eos (absolute) 0.3 x10e3 /uL 0.0-0. 4 normal Not Available [facility] ([facility]) [address] [facility], [place], [address], 08/25/2024 14:37:32 08/18/20 24 08/19/2024 CBC WITH DIFFE RENTI AL/PL ATELE T baso (absolute) 0.1 x10e3 /uL 0.0-0. 2 normal Not Available [facility] ([facility]) [address] [facility], [place], [address], 08/25/2024 14:37:32 08/18/20 24 08/19/2024 CBC WITH DIFFE RENTI AL/PL ATELE T immature granulocytes 0 % not estab. Not Available [facility] ([facility]) [address] [facility], [place], [address], 08/25/2024 14:37:32 08/18/20 24 08/19/2024 CBC WITH DIFFE RENTI AL/PL ATELE T immature grans (abs) 0.0 x10e3 /uL 0.0-0. 1 Not Available [facility] ([facility]) [address] [facility], [place], [address], 08/25/2024 14:37:32 08/18/20 24 08/19/2024 CBC WITH DIFFE RENTI AL/PL ATELE T NRBC VP INTEGRATION Not Available [facility] ([facility]) [address] [facility], [place], [address], 08/25/2024 14:37:32 08/18/20 24 08/19/2024 CBC WITH DIFFE RENTI AL/PL AMANDA T hematology comments: VP INTEGRATION Not Available [facility] ([facility]) [address] [facility], [place], [address], 08/25/2024 14:37:32 08/18/20 24 08/19/2024 COMP. METAB OLIC PANEL (14) glucose 56 mg/dL 70-99 below low normal Not Available [facility] ([facility]) [address] [facility] [place], [address], 08/25/2024 14:37:34 08/18/20 24 08/19/2024 COMP. METAB OLIC PANEL (14) BUN 6 mg/dL 6-24 normal Not Available [facility] ([facility]) [address] [facility], [place], [address], 08/25/2024 14:37:34 08/18/20 24 08/19/2024 COMP. METAB OLIC PANEL (14) creatinine 0.78 mg/dL 0.57-1 .00 normal Not Available [facility] ([facility]) [address] [facility] [place], [address], 08/25/2024 14:37:34 08/18/20 24 08/19/2024 COMP. METAB OLIC PANEL (14) eGFR 88 mL/mi n/1.7 3 >59 normal Not Available [facility] ([facility]) [address] [facility] [place], [address], 08/25/2024 14:37:34 08/18/20 24 08/19/2024 COMP. METAB OLIC PANEL (14) BUN/creatini ne ratio 8 9-23 below low normal Not Available [facility] ([facility]) [address] [facility] [place], [address], 08/25/2024 14:37:34 08/18/20 24 08/19/2024 COMP. METAB OLIC PANEL (14) sodium 129 mmol/ L 134-14 4 below low normal Not Available [facility] ([facility]) [address] [place], [address], 08/25/2024 14:37:34 08/18/20 24 08/19/2024 COMP. METAB OLIC PANEL (14) potassium 4.8 mmol/ L 3.5-5. 2 normal Not Available [facility] ([facility]) [address] [place], [address], 08/25/2024 14:37:34 08/18/20 24 08/19/2024 COMP. METAB OLIC PANEL (14) chloride 90 mmol/ L 96-106 below low normal Not Available [facility] ([facility]) [address] [place], [address], 08/25/2024 14:37:34 08/18/20 24 08/19/2024 COMP. METAB OLIC PANEL (14) carbon dioxide, total 21 mmol/ L 20-29 normal Not Available [facility] ([facility]) [address] [facility], [place], [address], 08/25/2024 14:37:34 08/18/20 24 08/19/2024 COMP. METAB OLIC PANEL (14) calcium 8.9 mg/dL 8.7-10 .2 normal Not Available [facility] ([facility]) [address] [facility] [place], [address], 08/25/2024 14:37:34 08/18/20 24 08/19/2024 COMP. METAB OLIC PANEL (14) protein, total 6.3 g/dL 6.0-8. 5 normal Not Available [facility] ([facility]) [address] [facility] [place], [address], 08/25/2024 14:37:34 08/18/20 24 08/19/2024 COMP. METAB OLIC PANEL (14) albumin 3.9 g/dL 3.8-4. 9 normal Not Available [facility] ([facility]) [address] [facility] [place], [address], 08/25/2024 14:37:34 08/18/20 24 08/19/2024 COMP. METAB OLIC PANEL (14) globulin, total 2.4 g/dL 1.5-4. 5 Not Available [facility] ([facility]) [address] [facility] [place], [address], 08/25/2024 14:37:34 08/18/20 24 08/19/2024 COMP. METAB OLIC PANEL (14) bilirubin, total 0.3 mg/dL 0.0-1. 2 normal Not Available [facility] ([facility]) [address] [facility] [place], [address], 08/25/2024 14:37:34 08/18/20 24 08/19/2024 COMP. METAB OLIC PANEL (14) alkaline phosphatase 152 IU/L 44-121 above high normal Not Available [facility] ([facility]) [address] [facility] [place], [address], 08/25/2024 14:37:34 08/18/20 24 08/19/2024 COMP. METAB OLIC PANEL (14) AST (SGOT) 21 IU/L 0-40 normal Not Available [facility] ([facility]) [address] [facility] [place], [address], 08/25/2024 14:37:34 08/18/20 24 08/19/2024 COMP. METAB OLIC PANEL (14) ALT (SGPT) 20 IU/L 0-32 normal Not Available [facility] ([facility]) [address] [facility] [place], [address], 08/25/2024 14:37:34 08/18/20 24 08/19/2024 LIPID PANEL cholesterol, total 175 mg/dL 100-19 9 normal Not Available [facility] ([facility]) [address] [facility] [place], [address], 08/25/2024 14:37:35 08/18/20 24 08/19/2024 LIPID PANEL triglyceride s 99 mg/dL 0-149 normal Not Available [facility] ([facility]) [address] [place], [address], 08/25/2024 14:37:35 08/18/20 24 08/19/2024 LIPID PANEL HDL cholesterol 90 mg/dL >39 normal Not Available [facility] ([facility]) [address] [facility], [place], [address], 08/25/2024 14:37:35 08/18/20 24 08/19/2024 LIPID PANEL VLDL cholesterol sharon 17 mg/dL 5-40 Not Available [facility] ([facility]) [address] [place], [address], 08/25/2024 14:37:35 08/18/20 24 08/19/2024 LIPID PANEL LDL chol calc ([facility]) 68 mg/dL 0-99 Not Available [facility] ([facility]) [address] [facility], [place], [address], 08/25/2024 14:37:35 08/18/20 24 08/19/2024 LIPID PANEL LDL calc comment: VP INTEGRATION Not Available [facility] ([facility]) [address] [facility], [place], [address], 08/25/2024 14:37:35 08/18/20 24 08/24/2024 VITAM IN E vitamin E(alpha tocopherol) 9.3 mg/L 7.0-25 .1 Not Available [facility] ([facility]) [address] [place], [address], 08/25/2024 14:37:36 08/18/20 24 08/24/2024 VITAM IN [...] in E defic ient. Not Available [facility] ([facility]) [address] [facility], [place], [address], 08/25/2024 14:37:36 08/18/20 24 08/19/2024 HEMOG LOBIN A1C hemoglobin A1C 5.8 % 4.8-5. 6 above high normal Predi abete s: 5.7 - 6.4 Diabe zoila: >6.4 Glyce carol contr ol for adult s with diabe zoila: <7.0 Not Available [facility] ([facility]) [address] [facility], [place], [address], 08/25/2024 14:37:37 08/18/20 24 08/19/2024 FOLAT E (FOLI C ACID) , SERUM folate (folic acid), serum 13.4 NG/mL >3.0 normal A serum folat e mikaela ntrat ion of less than 3.1 ng/mL is consi dered to repre sent clini sharon defic iency . Not Available [facility] ([facility]) [address] [facility], [place], [address], 08/25/2024 14:37:38 08/18/20 24 08/24/2024 VITAM IN [...] Drug Admin istra tion. Not Available [facility] ([facility]) [address] [place], [address], 08/25/2024 14:37:38 08/18/20 24 08/19/2024 VITAM IN [...] um and D. Karis bunch [place]: [facility] . 2. Dipak mejia MF, Henry waller [place], Che off-F errar i FARRELL, et al. Evalu ation , treat ment, and preve ntion of vitam in D defic iency : an Endoc rine Socie ty clini sharon pract ice guide line. JCEM. 2010; 96(7) :1911 -30. Not Available [facility] ([facility]) [address] [place], [address], 08/25/2024 14:37:39 08/18/20 24 08/25/2024 VITAM IN B1 (THIA MINE) , BLOOD vit. B1, whole blood 121.7 nmol/ L 66.5-2 00.0 Not Available [facility] ([facility]) [address] [place], [address], 08/25/2024 14:37:40 08/18/20 24 08/21/2024 METHY LMALO INDIGO ACID, SERUM methylmaloni c acid, serum 130 nmol/ L 0-378 Not Available [facility] ([facility]) [address] [place], [address], 08/25/2024 14:37:41 08/18/20 24 08/19/2024 COPPE R, SERUM OR PLASM A copper, serum or plasma 132 ug/dL 80-158 Detec tion Limit = 5 Not Available [facility] ([facility]) [address] [facility], [place], [address], 08/25/2024 14:37:42 08/18/20 24 08/19/2024 ZINC, PLASM A OR SERUM zinc, plasma or serum 52 ug/dL 44-115 normal Detec tion Limit = 5 Not Available [facility] ([facility]) [address] [place], [address], 08/25/2024 14:37:43 08/18/20 24 08/19/2024 PREAL BUMIN prealbumin 19 mg/dL 10-36 Not Available [facility] ([facility]) [address] [place], [address], 08/25/2024 14:37:44 08/18/20 24 08/22/2024 SELEN IUM, BLOOD selenium, blood 116 ug/L 100-34 0 Detec tion Limit = 10 Not Available [facility] ([facility]) [address] [place], [address], 08/25/2024 14:37:45 11/18/19 25 11/18/2024 FE+TI BC+FE R iron bind.cap.(TI BC) 251 ug/dL 250-45 0 normal Not Available [facility] ([facility]) [address] [place], [address], 11/28/2024 18:38:00 11/18/19 25 11/18/2024 FE+TI BC+FE R UIBC 188 ug/dL 131-42 5 normal Not Available [facility] ([facility]) [address] [place], [address], 11/28/2024 18:38:00 11/18/19 25 11/18/2024 FE+TI BC+FE R iron 63 ug/dL 27-159 normal Not Available [facility] ([facility]) [address] [place], [address], 11/28/2024 18:38:00 11/18/19 25 11/18/2024 FE+TI BC+FE R iron saturation 25 % 15-55 normal Not Available [facility] ([facility]) [address] [place], [address], 11/28/2024 18:38:00 11/18/19 25 11/18/2024 FE+TI BC+FE R ferritin 271 NG/mL 15-150 above high normal Not Available [facility] ([facility]) [address] [place], [address], 11/28/2024 18:38:00 11/18/19 25 11/18/2024 TSH+F REE T4 TSH 28.400 uIU/m L 0.450- 4.500 above high normal Not Available [facility] ([facility]) [address] [place], [address], 11/28/2024 18:38:01 11/18/19 25 11/18/2024 TSH+F REE T4 T4,free(dire ct) 0.70 NG/dL 0.82-1 .77 below low normal Not Available [facility] ([facility]) [address] [place], [address], 11/28/2024 18:38:01 11/18/19 25 11/18/2024 CBC WITH DIFFE RENTI AL/PL ATELE T WBC 6.4 x10e3 /uL 3.4-10 .8 normal Not Available [facility] ([facility]) [address] [place], [address], 11/28/2024 18:38:02 11/18/19 25 11/18/2024 CBC WITH DIFFE RENTI AL/PL ATELE T RBC 4.36 x10e6 /uL 3.77-5 .28 normal Not Available [facility] ([facility]) [address] [place], [address], 11/28/2024 18:38:02 11/18/19 25 11/18/2024 CBC WITH DIFFE RENTI AL/PL ATELE T hemoglobin 13.0 g/dL 11.1-1 5.9 normal Not Available [facility] ([facility]) [address] [place], [address], 11/28/2024 18:38:02 11/18/19 25 11/18/2024 CBC WITH DIFFE RENTI AL/PL ATELE T hematocrit 39.6 % 34.0-4 6.6 normal Not Available [facility] ([facility]) [address] [place], [address], 11/28/2024 18:38:02 11/18/19 25 11/18/2024 CBC WITH DIFFE RENTI AL/PL ATELE T MCV 91 fL 79-97 normal Not Available [facility] ([facility]) [address] [place], [address], 11/28/2024 18:38:02 11/18/19 25 11/18/2024 CBC WITH DIFFE RENTI AL/PL ATELE T MCH 29.8 pg 26.6-3 3.0 normal Not Available [facility] ([facility]) [address] [place], [address], 11/28/2024 18:38:02 11/18/19 25 11/18/2024 CBC WITH DIFFE RENTI AL/PL ATELE T MCHC 32.8 g/dL 31.5-3 5.7 normal Not Available [facility] ([facility]) [address] [place], [address], 11/28/2024 18:38:02 11/18/19 25 11/18/2024 CBC WITH DIFFE RENTI AL/PL ATELE T RDW 12.5 % 11.7-1 5.4 Not Available [facility] ([facility]) [address] [facility], [place], [address], 11/28/2024 18:38:02 11/18/19 25 11/18/2024 CBC WITH DIFFE RENTI AL/PL ATELE T platelets 312 x10e3 /uL 150-45 0 normal Not Available [facility] ([facility]) [address] [facility], [place], [address], 11/28/2024 18:38:02 11/18/19 25 11/18/2024 CBC WITH DIFFE RENTI AL/PL ATELE T neutrophils 66 % not estab. normal Not Available [facility] ([facility]) [address] [facility], [place], [address], 11/28/2024 18:38:02 11/18/19 25 11/18/2024 CBC WITH DIFFE RENTI AL/PL ATELE T lymphs 23 % not estab. normal Not Available [facility] ([facility]) [address] [facility], [place], [address], 11/28/2024 18:38:02 11/18/19 25 11/18/2024 CBC WITH DIFFE RENTI AL/PL ATELE T monocytes 7 % not estab. normal Not Available [facility] ([facility]) [address] [facility], [place], [address], 11/28/2024 18:38:02 11/18/19 25 11/18/2024 CBC WITH DIFFE RENTI AL/PL ATELE T eos 3 % not estab. normal Not Available [facility] ([facility]) [address] [facility], [place], [address], 11/28/2024 18:38:02 11/18/19 25 11/18/2024 CBC WITH DIFFE RENTI AL/PL ATELE T basos 1 % not estab. normal Not Available [facility] ([facility]) [address] [facility], [place], [address], 11/28/2024 18:38:02 11/18/19 25 11/18/2024 CBC WITH DIFFE RENTI AL/PL ATELE T immature cells VP INTEGRATION Not Available [facility] ([facility]) [address] [facility], [place], [address], 11/28/2024 18:38:02 11/18/19 25 11/18/2024 CBC WITH DIFFE RENTI AL/PL ATELE T neutrophils (absolute) 4.2 x10e3 /uL 1.4-7. 0 normal Not Available [facility] ([facility]) [address] [facility], [place], [address], 11/28/2024 18:38:02 11/18/19 25 11/18/2024 CBC WITH DIFFE RENTI AL/PL ATELE T lymphs (absolute) 1.5 x10e3 /uL 0.7-3. 1 normal Not Available [facility] ([facility]) [address] [place], [address], 11/28/2024 18:38:02 11/18/19 25 11/18/2024 CBC WITH DIFFE RENTI AL/PL ATELE T monocytes(ab solute) 0.5 x10e3 /uL 0.1-0. 9 normal Not Available [facility] ([facility]) [address] [facility], [place], [address], 11/28/2024 18:38:02 11/18/19 25 11/18/2024 CBC WITH DIFFE RENTI AL/PL ATELE T eos (absolute) 0.2 x10e3 /uL 0.0-0. 4 normal Not Available [facility] ([facility]) [address] [place], [address], 11/28/2024 18:38:02 11/18/19 25 11/18/2024 CBC WITH DIFFE RENTI AL/PL ATELE T baso (absolute) 0.1 x10e3 /uL 0.0-0. 2 normal Not Available [facility] ([facility]) [address] [facility], [place], [address], 11/28/2024 18:38:02 11/18/19 25 11/18/2024 CBC WITH DIFFE RENTI AL/PL ATELE T immature granulocytes 0 % not estab. Not Available [facility] ([facility]) [address] [facility], [place], [address], 11/28/2024 18:38:02 11/18/19 25 11/18/2024 CBC WITH DIFFE RENTI AL/PL ATELE T immature grans (abs) 0.0 x10e3 /uL 0.0-0. 1 Not Available [facility] ([facility]) [address] [facility], [place], [address], 11/28/2024 18:38:02 11/18/19 25 11/18/2024 CBC WITH DIFFE RENTI AL/PL ATELE T NRBC VP INTEGRATION Not Available [facility] ([facility]) [address] [facility], [place], [address], 11/28/2024 18:38:02 11/18/19 25 11/18/2024 CBC WITH DIFFE RENTI AL/PL ATELE T hematology comments: VP INTEGRATION Not Available [facility] ([facility]) [address] [facility], [place], [address], 11/28/2024 18:38:02 11/18/19 25 11/18/2024 COMP. METAB OLIC PANEL (14) glucose 78 mg/dL 70-99 normal Not Available [facility] ([facility]) [address] [place], [address], 11/28/2024 18:38:03 11/18/19 25 11/18/2024 COMP. METAB OLIC PANEL (14) BUN 7 mg/dL 6-24 normal Not Available [facility] ([facility]) [address] [place], [address], 11/28/2024 18:38:03 11/18/19 25 11/18/2024 COMP. METAB OLIC PANEL (14) creatinine 0.93 mg/dL 0.57-1 .00 normal Not Available [facility] ([facility]) [address] [facility] [place], [address], 11/28/2024 18:38:03 11/18/19 25 11/18/2024 COMP. METAB OLIC PANEL (14) eGFR 71 mL/mi n/1.7 3 >59 normal Not Available [facility] ([facility]) [address] [facility] [place], [address], 11/28/2024 18:38:03 11/18/19 25 11/18/2024 COMP. METAB OLIC PANEL (14) BUN/creatini ne ratio 8 9-23 below low normal Not Available [facility] ([facility]) [address] [facility], [place], [address], 11/28/2024 18:38:03 11/18/19 25 11/18/2024 COMP. METAB OLIC PANEL (14) sodium 138 mmol/ L 134-14 4 normal Not Available [facility] ([facility]) [address] [facility] [place], [address], 11/28/2024 18:38:03 11/18/19 25 11/18/2024 COMP. METAB OLIC PANEL (14) potassium 4.2 mmol/ L 3.5-5. 2 normal Not Available [facility] ([facility]) [address] [facility] [place], [address], 11/28/2024 18:38:03 11/18/19 25 11/18/2024 COMP. METAB OLIC PANEL (14) chloride 101 mmol/ L 96-106 normal Not Available [facility] ([facility]) [address] [facility] [place], [address], 11/28/2024 18:38:03 11/18/19 25 11/18/2024 COMP. METAB OLIC PANEL (14) carbon dioxide, total 24 mmol/ L 20-29 normal Not Available [facility] ([facility]) [address] [facility] [place], [address], 11/28/2024 18:38:03 11/18/19 25 11/18/2024 COMP. METAB OLIC PANEL (14) calcium 8.9 mg/dL 8.7-10 .2 normal Not Available [facility] ([facility]) [address] [place], [address], 11/28/2024 18:38:03 11/18/19 25 11/18/2024 COMP. METAB OLIC PANEL (14) protein, total 5.9 g/dL 6.0-8. 5 below low normal Not Available [facility] ([facility]) [address] [facility] [place], [address], 11/28/2024 18:38:03 11/18/19 25 11/18/2024 COMP. METAB OLIC PANEL (14) albumin 3.8 g/dL 3.8-4. 9 normal Not Available [facility] ([facility]) [address] [facility] [place], [address], 11/28/2024 18:38:03 11/18/19 25 11/18/2024 COMP. METAB OLIC PANEL (14) globulin, total 2.1 g/dL 1.5-4. 5 Not Available [facility] ([facility]) [address] [facility] [place], [address], 11/28/2024 18:38:03 11/18/19 25 11/18/2024 COMP. METAB OLIC PANEL (14) bilirubin, total 0.3 mg/dL 0.0-1. 2 normal Not Available [facility] ([facility]) [address] [facility] [place], [address], 11/28/2024 18:38:03 11/18/19 25 11/18/2024 COMP. METAB OLIC PANEL (14) alkaline phosphatase 155 IU/L 44-121 above high normal Not Available [facility] ([facility]) [address] [place], [address], 11/28/2024 18:38:03 11/18/19 25 11/18/2024 COMP. METAB OLIC PANEL (14) AST (SGOT) 22 IU/L 0-40 normal Not Available [facility] ([facility]) [address] [place], [address], 11/28/2024 18:38:03 11/18/19 25 11/18/2024 COMP. METAB OLIC PANEL (14) ALT (SGPT) 19 IU/L 0-32 normal Not Available [facility] ([facility]) [address] [place], [address], 11/28/2024 18:38:03 11/18/19 25 11/18/2024 LIPID PANEL cholesterol, total 179 mg/dL 100-19 9 normal Not Available [facility] ([facility]) [address] [place], [address], 11/28/2024 18:38:03 11/18/19 25 11/18/2024 LIPID PANEL triglyceride s 63 mg/dL 0-149 normal Not Available [facility] ([facility]) [address] [place], [address], 11/28/2024 18:38:03 11/18/19 25 11/18/2024 LIPID PANEL HDL cholesterol 95 mg/dL >39 normal Not Available [facility] ([facility]) [address] [place], [address], 11/28/2024 18:38:03 11/18/19 25 11/18/2024 LIPID PANEL VLDL cholesterol sharon 12 mg/dL 5-40 Not Available [facility] ([facility]) [address] [place], [address], 11/28/2024 18:38:03 11/18/19 25 11/18/2024 LIPID PANEL LDL chol calc ([facility]) 72 mg/dL 0-99 Not Available [facility] ([facility]) [address] [facility], [place], [address], 11/28/2024 18:38:03 11/18/19 25 11/18/2024 LIPID PANEL LDL calc comment: [employer] Not Available [facility] ([facility]) [address] [facility], [place], [address], 11/28/2024 18:38:03 11/18/19 25 11/27/2024 VITAM IN E vitamin E(alpha tocopherol) 10.7 mg/L 7.0-25 .1 Not Available [facility] ([facility]) [address] [facility], [place], [address], 11/28/2024 18:38:04 11/18/19 25 11/27/2024 VITAM IN [...] in E defic ient. Not Available [facility] ([facility]) [address] [facility], [place], [address], 11/28/2024 18:38:04 11/18/19 25 11/18/2024 HEMOG LOBIN A1C hemoglobin A1C 5.4 % 4.8-5. 6 normal Predi abete s: 5.7 - 6.4 Diabe zoila: >6.4 Glyce carol contr ol for adult s with diabe zoila: <7.0 Not Available [facility] ([facility]) [address] [place], [address], 11/28/2024 18:38:05 11/18/19 25 11/18/2024 FOLAT E (FOLI C ACID) , SERUM folate (folic acid), serum >20.0 NG/mL >3.0 A serum folat e mikaela ntrat ion of less than 3.1 ng/mL is consi dered to repre sent clini sharon defic iency . Not Available [facility] ([facility]) [address] [facility], [place], [address], 11/28/2024 18:38:05 11/18/19 25 11/27/2024 VITAM IN [...] Drug Admin istra tion. Not Available [facility] ([facility]) [address] [facility], [place], [address], 11/28/2024 18:38:06 11/18/19 25 11/18/2024 VITAM IN [...] um and D. Karis bunch [place]: [facility] . 2. Dipak mejia MF, Henry waller [place], Che off-F thierno i FARRELL, et al. Evalu ation , treat ment, and preve ntion of vitam in D defic iency : an Endoc rine Socie ty clini sharon pract ice guide line. JCEM. 2010; 96(7) :1911 -30. Not Available [facility] ([facility]) [address] [place], [address], 11/28/2024 18:38:06 11/18/19 25 11/23/2024 VITAM IN B1 (THIA MINE) , BLOOD vit. B1, whole blood 133.4 nmol/ L 66.5-2 00.0 Not Available [facility] ([facility]) [address] [place], [address], 11/28/2024 18:38:07 11/18/19 25 11/23/2024 METHY LMALO INDIGO ACID, SERUM methylmaloni c acid, serum 165 nmol/ L 0-378 Not Available [facility] ([facility]) [address] [place], [address], 11/28/2024 18:38:07 11/18/19 25 11/21/2024 COPPE R, SERUM OR PLASM A copper, serum or plasma 122 ug/dL 80-158 Detec tion Limit = 5 Not Available [facility] ([facility]) [address] [place], [address], 11/28/2024 18:38:08 11/18/19 25 11/21/2024 ZINC, PLASM A OR SERUM zinc, plasma or serum 56 ug/dL 44-115 normal Detec tion Limit = 5 Not Available [facility] ([facility]) [address] [place], [address], 11/28/2024 18:38:08 11/18/19 25 11/18/2024 PREAL BUMIN prealbumin 16 mg/dL 10-36 Not Available [facility] ([facility]) [address] [facility], [place], [address], 11/28/2024 18:38:09 11/18/19 25 11/28/2024 SELEN IUM, BLOOD selenium, blood 115 ug/L 100-34 0 Detec tion Limit = 10 Not Available [facility] ([facility]) [address] [facility], [place], [address], 11/28/2024 18:38:09 Result Notes None recorded. 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 2023 Hilario Woods DNP, MEAT PICKLER, [employer] [address] , [place], [address] , [facility] & [place] 4 11:59:38 Hyperlipid emia 43657109 Active 2021 Hilario Woods DNP, SANGEETA, [employer] [address] , [place] [address] , [facility] & [place] 2 12:50:33 Hypothyroi dism 31695617 Active 2021 Hilario Woods DNP, SANGEETA, [employer] [address] , [place], [place], [address] [place] [address] , [facility] & [place] 2 12:50:39 History of sleeve gastrectom y 4138601543044 07 Active 2021 Hilario Woods DNP, SANGEETA, [employer] [address], [place], [address] , [facility] & [place] 2 12:51:22 Essential hypertensi on 19067179 Active 2021 Hilario Woods DNP, SANGEETA, [employer] [address], [place], [address] , [place] [facility] [place] & [place] 2 13:07:08 Iron deficiency anemia 73410567 Active 2021 Hilario Woods DNP, SANGEETA, [employer] [address], [place], [address] , [place] [facility] [place] & [place] 2 13:18:48 Heartburn 71051729 Active 2021 Hilario Woods DNP, APRN, [employer] [address], [place], [address] , [place] [facility] [place] & [place] 2 13:39:01 Disorder of function of stomach 974572290 Active 2021 Hilario Woods DNP, APRN, [employer] [address], [place], [address] , [place] [facility] [place] & [place] 2 13:39:09 Morbid obesity 460423587 Active 2022 Hilario Woods DNP, APRN, [employer] [address], [place], [place], [address] [place] [address] , [place] [facility] [place] & [place] 3 09:30:50 Pre-surger y evaluation Active 2022 Hilario Woods DNP, APRN, [employer] [address], [place], [place], [address] [place] [address] , [place] [facility] & [place] 3 09:32:01 Nausea 052880886 Active 2022 Hilario Woods DNP, APRN, [employer] [address], [place], [address] , [place] [facility] & [place] 3 09:36:40 Unintentio nal weight gain 7534158827733 04 Active 2023 Hilario Woods DNP, APRN, [employer] [address], [place], [address] , [place] [facility] [place] & [place] 4 12:27:34 Vomiting 311878852 Active 2023 Hilario Woods, DNP, MEAT PICKLER, [employer] [address], [place], [address] , [place] [facility] [place] & [place] 4 14:01:05 Problem Notes None recorded. Procedures Surgical History Date Name Laterality Status Provider Name and Address Organization Details Recorded Time esophagogastroduodenoscopy completed Melanie Cortes [place] [facility] [place] & [place] 3 09:26:22 Julio Cesar-en-Y gastrojejunostomy complete d Melanie Cortes [place] [facility] [place] & [place] 3 08:29:39 laparoscopic sleeve gastrectomy completed Melanie Cortes [place] [facility] [place] & [place] 2 13:00:35 fusion of joint of c ervical spine by anterior approach for deformity of cervical spine completed Melanie Cortes [place] [facility] [place] & [place] 2 13:01:48 revision of fusion o f cervical spine completed Melanie Cortes [place] [facility] [place] & [place] 2 13:02:08 Stimulation of spinal cord completed Melanie Cortes [place] [facility] [place] & [place] 2 13:02:22 esophagogastroduodenoscopy completed Melanie Cortes [place] [facility] [place] & [place] 2 13:02:28 Colonoscopy completed Melanie Cortes [place] [facility] [place] & [place] 2 13:02:42 Hysterectomy completed Melanie Cortes [place] [facility] [place] & [place] 2 13:03:46 cardiac catheterization completed R ebecca Cortes [place] [facility] [place] & [place] 2 13:05:15 Imaging Results None recorded. Procedure [...] cm 96.9 [degF] 59 /min 37.5 kg/m2 51235.8 6 g 131 mm[Hg] 83 mm[Hg] Antione Chávez-Bec jassi [place] [facility] 4 10:33:00 Date Recorded Body height Body temperature Body mass index (BMI) Body weight Heart rate Systolic blood pressure Diastolic blood pressure Provider Name and Address Organization Details Last Updated DateTime 4 160.02 cm 98.1 [degF] 35.8 kg/m2 34986.6 6 g 71 /min 119 mm[Hg] 78 mm[Hg] Mary FORDE [facility] & [place] 4 13:41:10 Date Recorded Body height Body temperature Body mass index (BMI) Body weight Heart rate Systolic blood pressure Diastolic blood pressure Provider Name and Address Organization Details Last Updated DateTime 4 160.02 cm 98.1 [degF] 39.8 kg/m2 066897. 92 g 64 /min 137 mm[Hg] 83 mm[Hg] Mary FORDE [facility] & [place] 4 11:41:06 Date Recorded Body height Body temperature Heart rate Body mass index (BMI) Body weight Systolic blood pressure Diastolic blood pressure Provider Name and Address Organization Details Last Updated DateTime 5 160.02 cm 96.3 [degF] 63 /min 44.2 kg/m2 918666. 37 g 153 mm[Hg] 81 mm[Hg] Mary FORDE [facility] & [place] 5 09:14:23 Social History None recorded. Functional Status Question Answer Note LastModified by Organizat ion Details LastModified Time Do you use any illicit or recreational drugs? No [email or web address] Information not available 07/14/2022 What is your level of alcohol consumption? None [email or web address] Information not available 07/14/2022 Mental Status None recorded. Family History Nothing Reported. Medical History Condition Response Anxiety Disorder Y Diabetes Y Muscle, Joint, or Bone Problems Y Coronary Artery Disease Y Vision or Eye Problems Y Arthritis Y Hypothyroidism Y GI Problems Y Difficulty Swallowing Y Constipation Y Reflux/GERD Y High Cholesterol Y Hypertension Y Osteoporosis Y Gynecological HistoryNo gynecological history recorded. Obstetrics History GPAL:G 0 P 0 0 0 0 Past Encounters Encounter ID Performer Location Encounter Start Date Encounter Closed Date Diagnosis/Indication Diagnosis SNOMED-CT Code Diagnosis ICD10 Code Diagnosis Note [id number] Edharriet Woods DNP, MEAT PICKLER, [employer] [address] [place] [address] 07/14/2022 12:39:25 07/14/2022 14:44:14 History of bariatric surgical procedure 151233498 Z98.84 Advised qid intake 50% protein 9300-8698 calories/d y less than 100 carbs/dy Patient [...] speak with patient today History of gastrectomy 790381392 Z90.3 Patient is status post bariatric surgery and at increased risk for vitamin deficienci es and malnutriti on. Bariatric vitamin panel ordered today. Patient will be contacted to correct any vitamin deficienci es. Hyperlipidemia 39084460 E78.5 Hypothyroidism 46408518 E03.9 History of sleeve gastrectomy 0206259847 80164 Z90.3 Essential hypertension 25234324 I10 Iron defic iency anemia 50072228 D50.9 Heartburn 55272902 R12 GERD-patie nt was reassured. We discussed [...] her EGD from since the on a [place]. Possible EGD with Dr. Flores. Disorder o f function of stomach 520530862 K31.89 [id number] Hilario Woods, LEVAR, MEAT PICKLER, [employer] [address] [facility] [place] [address] 01/29/2023 09:27:10 01/29/2023 09:52:58 History of bariatric surgical procedure 130457878 Z98.84 Advised qid intake 50% protein 3284-8280 calories/d y less than 100 carbs/dy Patient [...] declines at this time. History of gastrectomy 583360264 Z90.3 Patient is status post bariatric surgery and at increased risk for vitamin deficienci es and malnutriti on. Bariatric vitamin panel ordered today. Patient will be contacted to correct any vitamin deficienci es. Essential hypertension 04463290 I10 Hyperlipidemia 38972209 E78.5 Hypothyroidism 82216842 E03.9 Iron defic iency anemia 71851651 D50.9 Intentiona l weight loss 914922184 R63.8 Heartburn 64905420 R12 GERD-patie nt was reassured. We discussed [...] her EGD from since the on a [place]. Possible EGD with Dr. Flores. Disorder o f function of stomach 433884981 K31.89 [id number] SHAR[facility] [address] [facility] [address] [place] [address] 03/26/2023 09:03:41 03/26/2023 10:01:27 Gastroesophageal reflux disease 849578714 K21.9 We discussed concerns of worsening gastroesop [...] prior to revisional surgery History of gastrectomy 917302384 Z90.3 patient is to continue healthy bariatric diet. Continue routine vitamin supplement ation. We will request may results to complete our chart. Repeat bariatric labs needed approximat sandra May 2023 Iron defic iency anemia 45840678 D50.9 adequately supplement ed. Normal labs January 2023 Vitamin D deficiency 347 29139 E55.9 adequately supplement ed. Normal labs January 2023 [id number] Brennen Flores DO [facility] [address] [facility] [address] [place] [address] 04/18/2023 07:32:42 04/18/2023 12:14:27 Morbid obesity 597157907 E66.01 Pre-surger y evaluation 610667122 Z01.818 Postoperative pain 78765 9007 G89.18 Essential hypertension 34537531 I10 Heartburn 29696189 R12 Continue current PPI therapy. History of sleeve gastrectomy 0288241301 98186 Z90.3 Hyperlipidemia 91068575 E78.5 Hypothyroidism 08587836 E03.9 Iron defic iency anemia 47191615 D50.9 [id number] Hilario Woods, DNP, MEAT PICKLER, [employer] [facility] [address] [facility] [address] [place] [address] 05/08/2023 07:57:00 05/08/2023 09:41:43 History of bariatric surgical procedure 653141126 Z98.84 The patient is doing well. The [...] choose to have them drawn at another [facility] they are to make sure [...] plan and agree to comply. Essential hypertension 90073338 I10 History of sleeve gastrectomy 7435542873 40091 Z90.3 Hyperlipidemia 71492829 E78.5 Hypothyroidism 57023462 E03.9 Iron defic iency anemia 89653399 D50.9 Intentiona l weight loss 909774059 R63.8 Nausea 073575096 R11.0 [id number] Hilario oWods, DNP, MEAT PICKLER, [employer] [address] [facility] [address] [facility] [place] [address] 06/04/2023 10:04:12 06/04/2023 10:37:37 History of bariatric surgical procedure 209861617 Z98.84 The patient is doing well. The [...] choose to have them drawn at another [facility] they are to make sure [...] agree to comply. Intentiona l weight loss 149438390 R63.8 History of gastrectomy 327192869 Z90.3 Advised qid intake 50% protein 2025-1826 calories/d y less than 100 carbs/dy Patient is status post bariatric surgery and at increased risk for vitamin deficienci es and malnutriti on. Bariatric vitamin panel ordered today. Patient will be contacted to correct any vitamin deficienci es. Essential hypertension 87540880 I10 Hyperlipidemia 61403584 E78.5 Hypothyroidism 10993517 E03.9 Iron defic iency anemia 89396976 D50.9 Morbid obesity 065559189 E66.01 [id number] Hilario Woods, DNP, MEAT PICKLER, [employer] [facility] [address] [facility] [address] [facility] [place] [address] 09/12/2023 13:39:31 09/12/2023 14:11:00 History of bariatric surgical procedure 749871049 Z98.84 The patient is doing well. The [...] choose to have them drawn at another [facility] they are to make sure [...] agree to comply. Intentiona l weight loss 707898688 R63.8 History of gastrectomy 425456355 Z90.3 Advised qid intake 50% protein 3054-8862 calories/d y less than 100 carbs/dy Long [...] correct any vitamin deficienci es. Essential hypertension 62436141 I10 History of sleeve gastrectomy 9702670682 75851 Z90.3 Hyperlipidemia 18157373 E78.5 Hypothyroidism 34892984 E03.9 Iron defic iency anemia 33943948 D50.9 Morbid obesity 376746423 E66.01 [id number] Hilario Woods, DNP, MEAT PICKLER, [employer] [address] [place] [address] 12/14/2023 08:59:51 12/14/2023 09:38:34 History of bariatric surgical procedure 132470814 Z98.84 The patient is doing well. The [...] choose to have them drawn at another [facility] they are to make sure [...] agree to comply. Intentiona l weight loss 624894367 R63.8 History of gastrectomy 151191018 Z90.3 Advised qid intake 50% protein 1897-[address]50 calories/d y less than 100 carbs/dyLo ng [...] correct any vitamin deficienci es. Essential hypertension 38529786 I10 Hyperlipidemia 00009655 E78.5 Hypothyroidism 90030005 E03.9 Iron defic iency anemia 41808020 D50.9 Morbid obesity 412787787 E66.01 Unintentio nal weight gain 3945553661 99303 R63.[id number], [place] [facility] [address] [facility] [address] [facility] [place] [address] 01/02/2024 11:58:38 01/02/2024 14:46:03 Morbid obesity 136440573 E66.01 BMI 36.7 Wt loss 9# Dietary ma [facility] surveillance 448293979 Z71.3 [id number] Hilario Woods, DNP, MEAT PICKLER, [employer] [address] [facility] [address] [facility] [place] [address] 03/31/2024 10:16:51 03/31/2024 11:18:28 History of bariatric surgical procedure 486296123 Z98.84 The patient is doing well. The [...] choose to have them drawn at another [facility] they are to make sure [...] agree to comply. Intentiona l weight loss 688832544 R63.8 History of gastrectomy 877209567 Z90.3 Advised qid intake 50% protein 1623-9001 calories/d y less than 100 carbs/dyLo ng [...] correct any vitamin deficienci es. Essential hypertension 55499095 I10 Hyperlipidemia 26877163 E78.5 Hypothyroidism 39711887 E03.9 Iron defic iency anemia 63045440 D50.9 Unintentio nal weight gain 6889316025 70807 R63.5 Morbid obesity 313900552 E66.01 [id number] Hilario Woods, DNP, MEAT PICKLER, [employer] [facility] [address] [facility] [address] [place] [address] 04/14/2024 13:31:27 04/14/2024 15:48:01 History of bariatric surgical procedure 135886572 Z98.84 Intentiona l weight loss 875890022 R63.8 Essential hypertension 58278441 I10 Hyperlipidemia 44516731 E78.5 Hypothyroidism 39361943 E03.9 Iron defic iency anemia 97859211 D50.9 Vomiting 023476503 R11.1 0 Heartburn 24991881 R12 GERD-patie nt was reassured. We discussed [...] well as EGD with possible dilatation .. [id number] Hilario Woods, DNP, MEAT PICKLER, [employer] [facility] [address] [place] [facility] [place] [address] 08/18/2024 11:29:14 08/18/2024 12:37:20 History of bariatric surgical procedure 412565911 Z98.84 Intentiona l weight loss 734722017 R63.8 History of gastrectomy 669304454 Z90.3 Advised qid intake 50% protein 4182-3521 calories/d y less than 100 carbs/dyLo ng [...] to correct any vitamin deficienci es. At [facility] risk of nutritional deficit 854774873 Z91.89 Essential hypertension 32483995 I10 Hyperlipidemia 11917426 E78.5 Hypothyroidism 23095148 E03.9 Iron defic iency anemia 73740345 D50.9 Ulcer of anastomosis 447 110030 K26.9 told to notify if tablets are expensive Heartburn 85750627 R12 GERD-patie nt was reassured. We discussed [...] keep upcoming appt for UGI. Morbid obesity 774864311 E66.01 [id number] Hilario Woods, DNP, MEAT PICKLER, [employer] [facility] [address] [facility] [address] [facility] [place] [address] 11/17/2024 08:59:09 11/18/2024 10:46:44 History of bariatric surgical procedure 851140569 Z98.84 Intentiona l weight loss 032134474 R63.8 History of gastrectomy 126602803 Z90.3 Advised qid intake 50% protein 9501-5594 calories/d y less than 100 carbs/dyLo ng [...] to correct any vitamin deficienci es. At [facility] risk of nutritional deficit 435536969 Z91.89 Essential hypertension 11441958 I10 Hyperlipidemia 84959615 E78.5 Hypothyroidism 01461198 E03.9 Iron defic iency anemia 13119701 D50.9 History of sleeve gastrectomy 2467250479 32608 Z90.3 Morbid obesity 968005459 E66.01 Unintentio nal weight gain 0313345823 35733 R63.[id number] [facility] [address] [facility] [address] [facility] [place] [address] 11/17/2024 16:09:54 11/17/2024 16:15:57 Dietary management surveillance 156492403 Z71.3 Health Concerns Section Related Observation LastModified by Organization Detai ls LastModified Time None Recorded Concern Status LastModified by Organization Details LastModified Time None Recorded Advance Directives Directive None Recorded Payers Insurance Date Sequence Insurance Name Policy Number Policy Rojas Covered Member ID Rojas Member ID Guarantor Name 10/17/2023 1 [facility] [place] [id number] Bushra Baldwin [place] [id number] Bushra Baldwin Tamika 11/15/2024 1 [employer] - [place] (MEDICAID REPLACEMENT - HMO) [id number] Bushra Baldwin Tamika [id number] Bushra Baldwin [place] Notes Date Note Type Note Provider Name [...] Metabolic Rate = 1397 kilo calories Hilario Woods, DNP, MEAT PICKLER, VP [employer] [address], [place], [address], [facility] - [facility] 03/31/2024 12:07:22 04/14/2024 text/html Patient presents [...] issue eating a chili dog without the Huy.Total Weight loss Since last office visit has been 9 lbsPt is happy with their quality of life after Weight loss Surgery. Hilario Woods, LEVAR, MEAT PICKLER, VP [employer]GRATION-C [address], [place], [address], [facility] 04/14/2024 15:27:35 08/18/2024 text/html Patient presents the [...] now set up fro next week at [facility]. She could not afford carafate suspension. [...] Rate = 1425kilo calories Hilario Woods, DNP, MEAT PICKLER, VP IN[employer]ATION-C [address], [place], [address], [facility] [place] 08/18/2024 13:02:08 11/17/2024 text/html RDN met w/ [...] heart tests done. KATHERINE CID, RD [address], [place], [address], [facility] [place] 11/17/2024 16:15:46 11/17/2024 text/html Patient presents the [...] She has been seeing Dr. Fernandez in [place] at [facility]. She has been stress eating [...] scan performed roughly 2 weeks ago at [facility]. She tells me that a 10 [...] having an actual sleep study performed at [facility] [place] tomorrow night. Today's InBody reveals a skeletal muscle mass = 64.4 lb,body fat mass = 130.8 lb,BMI = 44.3Percent body fat = 52.4Basal Metabolic Rate = 1536 kilo calories Hilario Woods, DNP, MEAT PICKLER, VP [employer]ATION-C [address], [place], [address], [facility] [place] [facility] [place] 11/17/2024 09:42:51 OBGyn Episode No OBEpisode recorded.
--- NOTE | 2025-01-27 14:30 | US_ITS ---
PROCEDURE: US TRANSVAGINAL CLINICAL INDICATION: needs for pelvic pain COMPARISON: No exams were available for comparison FINDINGS: Transvaginal sonographic images of the pelvis were obtained. UTERUS: The uterus is surgically absent. The vaginal cuff is intact. LEFT OVARY: 1.6 cmx0.6 cmx1.1cm with a volume of 0.6ml. RIGHT OVARY: 1.1cmx 0.5 cmx0.6 cm with a volume of 0.2ml. Both ovaries are seen and appear normal. Doppler flow to both ovaries are seen. There is no fluid in the cul-de-sac. IMPRESSION: 1. The uterus is surgically absent. The vaginal vault appears intact. 2. The both ovaries are difficult to visualize but appear small and atrophic. 3. No fluid in the cul-de-sac. Dictated by: Khang Ken MD 01/27/2025 15:18 Khang Ken MD in [place] 01/27/2025 15:18
== END 2025-01-27 23:59 | disposition home or self-care (01) ==
LOC: RAD 14:20
PROVIDERS: PCP Internal Medicine; Visit Provider Obstetrics & Gynecology
DX: N83.311 Acquired atrophy of right ovary (principal); N83.312 Acquired atrophy of left ovary; R10.2 Pelvic and perineal pain; Z90.710 Acquired absence of both cervix and uterus
CPT/HCPCS: 76830

== ENCOUNTER 2025-02-02 13:57 | Outpatient (CLI) | payer MEDICAID, SELFPAY ==
--- OUTSIDE RECORDS SUMMARY | 2025-02-02 13:59 | XMS_ITS | Data Portability ---
Author Organization MAURISIO PEMA Marte MUNCIE CLOSED Address [address] [place] [address] Care Team Providers Care Building Services Coordinator Name Role Phone YAMILETH ZAVALETA Referring Provider ASHISH ATKINSON Primary Care Provider Assessment Encounter Date Assessment [...] with voice recognition technology and may include job foreman errors. Not available 03/07/2021 11:00:40 05/19/2021 05/19/2021 [...] visit with new AP lateral cervical x-ray [facility]. She says she still has a little [...] or 3 view [facility] [address] [facility] [place] [address] Monicaclara jennie Name: BIA schneider : 01/20/19 [...] Edwin Stewart MD on 01/21/20 8:51 AM [facility] Radiology [facility] [address] [place] [address], [address], 01/24/2021 17:29:17 02/01/20 21 01/31/2021 MRI, cervi sharon spine , w/wo contr ast [address] [place] [address] Karlee t Name: BIA Desir t : [...] ality is identi fied. The visual ized slubber frame changer ior fossa of the brain is normal [...] strati on of [address] ([facility] [id number] 2), there is no abnorm al [...] Cherelle silveira MD on 021 11:05 AM [facility] Radiology [facility] [address] [place], [address], 02/01/2021 16:34:20 03/01/20 21 03/01/2021 nerve condu ction study /EMG, upper extre mity (PROC ) No observ ation record ed. [facility] [address] [place], [address], 03/28/2021 17:43:06 04/06/20 21 04/06/2021 fluor oscop y (PROC ) No observ ation record ed. [email or web address] [facility] Central Scheduling 1 [facility] , [place], [address], 04/08/2021 14:25:37 05/19/20 21 05/19/2021 XR, cervi sharon spine , 2 or 3 view [facility] [address] [place] [address] Paticlara t Name: BIA Schneider Paticlara t [...] Edwin Stewart MD on 05/19/20 1:30 PM [facility] Radiology [facility] [address] [place], [address], 05/19/2021 18:02:04 08/18/2008/18/2021 XR, cervi sharon spine , 2 or 3 view [facility] [address] [place] [address] [place] [address] Karlee schneider Name: BIA schneider : [birth year]19 [...] By: Kimberly Langford MD on 3:54 PM [facility] Radiology [facility] [address] [place], [address], 08/19/2021 09:21:43 Result Notes None recorded. Procedures Surgical History Date Name Laterality Status Provider Name and Address Organization Details Recorded Time 021 ANTERIOR CERVICAL DISCECTOMY AND FUSION, LEVEL SPECIFIED, WITH HARDWARE (SURG) completed Candy Melendrez [facility] 04/11/2021 16:27:57 021 Electromyography (EMG) with Nerve Conduction Study (NCV) completed Yari Payan (Nicky) [facility] 03/01/2021 10:44:38 021 ANTERIOR CERVICAL DISCECTOMY AND FUSION, LEVEL SPECIFIED, WITH HARDWARE (SURG) completed Marta Smith [facility] 10/22/2020 08:13:57 021 ANTERIOR CERVICAL DISCECTOMY AND FUSION, LEVEL SPECIFIED, WITH HARDWARE (SURG) completed Marta Smith [facility] 11/05/2020 16:07:08 laparoscopic sleeve gastrectomy completed Nery Carranza [facility] 09/27/2020 09:27:30 [facility] 09:27:42 Imaging Results Imaging Date Name Status LastModified by Organiz ation Details LastModified Time 2021 XR, cervical spine, 2 or 3 view completed [facility] [address] [place] [address], [phone], 01/24/2021 17:29:17 01/31/2021 MRI, cervical spine, w/wo contrast completed [address], [address], 02/01/2021 16:34:20 03/01/2021 nerve conduction study/EMG, upper extremity (PROC) completed [facility] [address] [place] [address], [address], 03/28/2021 17:43:06 04/06/2021 fluor[facility] (PROC) [facility] [address] [place], [address], 04/08/2021 14:25:37 05/19/2021 XR, cervical spine, 2 or 3 view completed [facility] [address] [place] [address], [address], 05/19/2021 18:02:04 08/18/2021 XR, cervical spine, 2 or 3 view completed [facility] [address] [place] [address], [phone], 08/19/2021 09:21:43 Procedure Notes None recorded. Medical [...] Updated DateTime 2021 160.02 cm 40.7 kg/m2 647156.2 5 g 142 mm[Hg] 80 mm[Hg] [facility] 09:31:14 Date Recorded Body height Provider Name an d Address Organization Details Last Updated DateTime 05/19/2021 160.02 cm Nery Carranza [facility] 10/2020 14:11:54 Date Recorded Body height Body mass index (BMI) Body weight Systolic blood pressure Diastolic blood pressure Provider Name and Address Organization Details Last Updated DateTime 08/18/2021 160.02 cm 40.7 kg/m2 741803.2 5 g 130 mm[Hg] 82 mm[Hg] [facility] 10:48:59 Social History None recorded. Functional Status [...] SNOMED-CT Code Diagnosis ICD10 Code Diagnosis Note [id number] MARION MELENDEZ MD NEUROSURG [facility] [address] [place] [address] 09/27/2020 08:28:55 09/27/2020 10:49:12 Cervical spondylosis with myelopathy [id number] M47.12 [id number] MARION MELENDEZ MD SURGERY SCHEDULE [address] [place] [address] 1 10/12/2020 09:31:36 10/12/2020 11:21:55 [id number] HEBERT GAMBOA PA-C NEUROSURG [facility] [address] [place] [address] 0 11/18/2020 10:05:27 11/23/2020 13:03:13 [id number] CHOCO MELISSA PA-C NEUROSURG [facility] [address] [place] [address] 0 2021 09:02:56 01/21/2021 15:06:30 Cervical radiculopathy 90591016 M54.12 [id number] [place] [address] [place] [address] 1 03/01/2021 08:58:19 03/01/2021 10:50:27 Cervical radiculopathy 59692007 M54.12 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 5863018308 54309 G56.01 [id number] MARION MELENDEZ MD SURGERY SCHEDULE [address] [place] [address] 1 04/14/2021 08:40:55 04/14/2021 13:24:31 [id number] MARION MELENDEZ MD NEUROSURG [facility] [address] [place] [address] 0 05/19/2021 13:30:28 05/20/2021 16:10:58 Postoperative care [id number] Z48.89 [id number] CHOCO MELISSA PA-C NEUROSURG [facility] [address] [place] [address] 0 08/18/2021 10:28:01 08/19/2021 09:17:33 Postoperative visit 848524782 Z09 Health Concerns Section Related Observation LastModified by Organization Detai ls LastModified Time None Recorded Concern Status LastModified by Organization Details LastModified Time None Recorded Advance Directives Directive None Recorded Payers Insurance Date Sequence Insurance Name Policy Number Policy Rojas Covered Member ID Rojas Member ID Guarantor Name 05/15/2021 1 [employer] [place] (MEDICAID REPLACEMENT - HMO) [id number] Bushra Lundberg [id number] Bushra Lundberg 08/17/2021 1 [employer] [place] (MEDICAID RE[place]AC[place] - HMO) Bushra Lundberg [id number] Bushra Lundberg Notes Date Note Type Note [...] all of her fingers. CHOCO MELISSA PA-C [address] [place] [address], [phone], [facility] 03/07/2021 11:00:45 05/19/2021 text/html Mrs. Lundberg is [...] postoperative visit with x-rays. MARION MELENDEZ MD [address] [place] [address], [phone], [facility] 05/19/2021 14:53:03 08/18/2021 text/html Ms. Lundberg is a 56-year-old female with history of C4-6 ACDF on 10/06/[address] Melendez him a C6-7 extension on 04/06/21, last seen here in 05/19/21, here for recheck and second postop visit with new AP lateral cervical x-ray [facility]. She says she still has a little [...] stimulator trial soon. CHOCO MELISSA PA-C [address] [place], [address], [facility] 08/18/2021 11:30:25 OBGyn Episode No OBEpisode recorded.
--- OUTSIDE RECORDS SUMMARY | 2025-02-02 13:59 | XMS_ITS | Data Portability ---
Author Organization [place] [facility] - [place] [facility] [place] [facility] ADMIN Address [address] [place] [id number] Care Team Providers Care Sprinkler Installer Name Role Phone CATERINA FERNANDEZ Primary Care Provider [phone] Assessment Encounter Date Assessment Date Assessment LastModified by Organization Details LastModified Time 11/17/2024 11/17/2024 A total of 10 minutes was spent with the pt today. ??? Recommendations: 1. Start tracking calories and protein with FOUNDD jessica 2. Aim for 1200 kcal per day and 65+ grams of protein 3. Try making own smoothies/shakes with a dock supervisor, almond milk, fruit, and protein powder from the tub 4. Add in high protein snacks like cottage cheese dip, yogurt, turkey roll ups, cheese, nuts/seeds, etc. 5. Add in chair exercises 3 days/week 6. Schedule an appt with nurse psychologist at [facility] 7. F/U With RD As needed ??? Pt doing well overall. Addressed concerns today. Pt was reassured at today's visit. Pt verbally agreed to recommendations and goals. Denied further questions/concerns . ??? RDN will monitor weight loss, labs, meds, and lifestyle modifications. Will f/up as scheduled or PRN. [email or web address] Not available 11/17/2024 16:14:49 Plan of Treatment Reminders Order Date Submit Date Provider Last Modified By Organization Details Last Modified Time Details Appointments OV EST 20 2024 08:00A M Hilario Woods, DNP, PHLEBOTOMY SUPPORT TECH, EQUIPMENT RECORDS SUPERVISOR-C Not available Not available Not available Lab copper , serum or plasma 2024 025 vilma carranza [facility], [address], [address], [place], [address], 11/24/2024 12:50:10 seleni um, quanti tative , blood 2024 025 [email or web address] s [facility], [address], [address], [place], [address], 11/24/2024 12:50:11 zinc, serum or plasma 2024 025 [email or web address] s [facility], [address], [address], [place], [address], 11/24/2024 12:50:11 vitami n E, serum 2024 025 ahaugrudgrave s [facility], [address], [address], [place], [address], 11/24/2024 12:50:11 vitami n A (retin ol), serum 2024 025 ahaugrudgrave s [facility], [address], [address], [place], [address], 11/24/2024 12:50:11 prealb umin, serum 2024 025 [email or web address] s [facility], [address], [address], [place], [address], 11/24/2024 12:50:11 thiami ne, QN, blood 2024 025 [email or web address] s [facility], [address], [address], [place], [address], 11/24/2024 12:50:11 methyl malona te, QN, serum or plasma 2024 025 [email or web address] s [facility], [address], [address], [place], [address], 11/24/2024 12:50:11 vitami n D, 25-hyd raul, total, serum 2024 025 [facility], [address], [address], [place], [address], 11/24/2024 12:50:11 CBC w/ auto diff 2024 025 [email or web address] s [facility], [address], [address], [place], [address], 11/24/2024 12:50:11 CMP, serum or plasma 2024 025 [facility], [address], [address], [place], [address], 11/24/2024 12:50:11 lipid panel, serum 2024 025 Floodlight[facility]grudgrave s [facility], [address], [address], [place], [address], 11/24/2024 12:50:12 HbA1c (hemog lobin A1c), blood 2024 025 [email or web address] s [facility], [address], [address], [place], [address], 11/24/2024 12:50:11 TSH + free T4, serum 2024 025 [facility], [address], [address], [place], [address], 11/24/2024 12:50:12 iron + TIBC + ferrit in, serum 2024 025 [email or web address] s [facility], [address], [address], [place], [address], 11/24/2024 12:50:11 folate , serum 2024 025 [email or web address] s [facility], [address], [address], [place], [address], 11/24/2024 12:50:11 copper , serum or plasma 2023 024 NATHAN [facility], [address], [address], [place], [address], 08/25/2024 14:37:42 seleni um, quanti tative , blood 2023 024 NATHAN [facility], [address], [address], [place], [address], 08/25/2024 14:37:45 zinc, serum or plasma 2023 024 NATHAN [facility], [address], [address], [place], [address], 08/25/2024 14:37:43 vitami n E, serum 2023 024 NATHAN [facility], [address], [address], [place], [address], 08/25/2024 14:37:36 vitami n A (retin ol), serum 2023 024 NATHAN [facility], [address], [address], [place], [address], 08/25/2024 14:37:39 prealb umin, serum 2023 024 NATHAN [facility], [address], [address], [place], [address], 08/25/2024 14:37:44 thiami ne, QN, blood 2023 024 NATHAN [facility], [address], [address], [place], [address], 08/25/2024 14:37:40 methyl malona te, QN, serum or plasma 2023 024 NATHAN [facility], [address], [address], [place], [address], 08/25/2024 14:37:41 vitami n D, 25-hyd raul, total, serum 2023 024 NATHAN [facility], [address], [address], [place], [address], 08/25/2024 14:37:39 lipid panel, serum 2023 024 NATHAN [facility], [address], [address], [place], [address], 08/25/2024 14:37:35 CBC w/ auto diff 2023 024 NATHAN [facility], [address], [address], [place], [address], 08/25/2024 14:37:33 CMP, serum or plasma 2023 024 NATHAN [facility], [address], [address], [place], [address], 08/25/2024 14:37:34 HbA1c (hemog lobin A1c), blood 2023 024 NATHAN [facility], [address], [address], [place], [address], 08/25/2024 14:37:37 TSH + free T4, serum 2023 024 NATHAN [facility], [address], [address], [place], [address], 08/25/2024 14:37:32 iron + TIBC + ferrit in, serum 2023 024 NATHAN [facility], [address], [address], [place], [address], 08/25/2024 14:37:31 folate , serum 2023 024 NATHAN [facility], [address], [address], [place], [address], 08/25/2024 14:37:38 copper , serum or plasma 2023 024 NATHAN [facility], [address], [address], [place], [address], 04/07/2024 12:36:58 seleni um, quanti tative , blood 2023 024 NATHAN [facility], [address], [address], [place], [address], 04/07/2024 12:37:00 zinc, serum or plasma 2023 024 NATHAN [facility], [address], [address], [place], [address], 04/07/2024 12:36:58 CBC w/ auto diff 2023 024 NATHAN [facility], [address], [address], [place], [address], 04/07/2024 12:36:53 CMP, serum or plasma 2023 024 NATHAN [facility], [address], [address], [place], [address], 04/07/2024 12:36:53 HbA1c (hemog lobin A1c), blood 2023 024 NATHAN [facility], [address], [address], [place], [address], 04/07/2024 12:36:55 vitami n D, 25-hyd raul, total, serum 2023 024 NATHAN [facility], [address], [address], [place], [address], 04/07/2024 12:36:56 vitami n E, serum 2023 024 NATHAN [facility], [address], [address], [place], [address], 04/07/2024 12:36:54 vitami n A (retin ol), serum 2023 024 NATHAN [facility], [address], [address], [place], [address], 04/07/2024 12:36:56 thiami ne, QN, blood 2023 024 NATHAN [facility], [address], [address], [place], [address], 04/07/2024 12:36:57 methyl malona te, QN, serum or plasma 2023 024 NATHAN [facility], [address], [address], [place], [address], 04/07/2024 12:36:57 prealb umin, serum 2023 024 NATHAN [facility], [address], [address], [place], [address], 04/07/2024 12:36:59 lipid panel, serum 2023 024 NATHAN [facility], [address], [address], [place], [address], 04/07/2024 12:36:54 TSH + free T4, serum 2023 024 NATHAN [facility], [address], [address], [place], [address], 04/07/2024 12:36:52 iron + TIBC + ferrit in, serum 2023 024 NATHAN [facility], [address], [address], [place], [address], 04/07/2024 12:36:52 folate , serum 2023 024 NATHAN [facility], [address], [address], [place], [address], 04/07/2024 12:36:55 Referral None record ed. Procedures None record ed. Surgeries esopha gogast roduod enosco py (SURG) 2023 024 [email or web address] Terese Higuera MD, [address], [address], [place], [address], 05/26/2024 10:46:31 Imaging RF, upper gastro intest inal tract + small bowel, w/ contra st PO 2023 024 [email or web address] [facility] (Centralized Scheduling), [address], [place], [address], 06/04/2024 16:14:18 Medication Orders Carafa te 1 gram tablet 2023 024 [facility], [address], [id number], 08/18/2024 12:05:16 Proton ix 40 mg tablet ,delay ed releas e 2023 024 [facility], [address] [facility] [address] [place], [place], [id number], 08/18/2024 12:11:12 omepra zole 20 mg capsul etita releas e 2023 024 [email or web address] [facility], [address] [place] [address] [place], [id number], 12/18/2024 11:02:39 promet hazine 12.5 mg rectal suppos itory 2023 025 NATHAN [facility], [address] [place], [place] [address], [id number], 11/17/2024 09:17:43 Patient TargetsNo targets recorded. Patient InstructionsNo instructions recorded. Reason for Referral None Reported. Results Created Date Observation Date Name Description Value Unit Range Abnormal Flag Note LastModifiedBy Organization Detail LastModifiedTime 03/31/2004/01/2024 FE+TI BC+FE R iron bind.cap.(TI BC) 255 ug/dL 250-45 0 normal Not Available [facility] ([facility]) [address] [place], [address], 04/07/2024 12:36:52 03/31/20 24 04/01/2024 FE+TI BC+FE R UIBC 196 ug/dL 131-42 5 normal Not Available [facility] ([facility]) [address] [place], [address], 04/07/2024 12:36:52 03/31/20 24 04/01/2024 FE+TI BC+FE R iron 59 ug/dL 27-159 normal Not Available [facility] ([facility]) [address] [place], [address], 04/07/2024 12:36:52 03/31/20 24 04/01/2024 FE+TI BC+FE R iron saturation 23 % 15-55 normal Not Available [facility] ([facility]) [address] [place], [address], 04/07/2024 12:36:52 03/31/20 24 04/01/2024 FE+TI BC+FE R ferritin 360 NG/mL 15-150 above high normal Not Available [facility] ([facility]) [address] [place], [address], 04/07/2024 12:36:52 03/31/20 24 04/01/2024 TSH+F REE T4 TSH 2.540 uIU/m L 0.450- 4.500 normal Not Available [facility] ([facility]) [address] [place], [address], 04/07/2024 12:36:52 03/31/20 24 04/01/2024 TSH+F REE T4 T4,free(dire ct) 1.65 NG/dL 0.82-1 .77 normal Not Available [facility] ([facility]) [address] [place], [address], 04/07/2024 12:36:52 03/31/20 24 04/01/2024 CBC WITH DIFFE RENTI AL/PL ATELE T WBC 7.3 x10e3 /uL 3.4-10 .8 normal Not Available [facility] ([facility]) [address] [place], [address], 04/07/2024 12:36:53 03/31/20 24 04/01/2024 CBC WITH DIFFE RENTI AL/PL ATELE T RBC 4.61 x10e6 /uL 3.77-5 .28 normal Not Available [facility] ([facility]) [address] [place], [address], 04/07/2024 12:36:53 03/31/20 24 04/01/2024 CBC WITH DIFFE RENTI AL/PL ATELE T hemoglobin 13.7 g/dL 11.1-1 5.9 normal Not Available [facility] ([facility]) [address] [place], [address], 04/07/2024 12:36:53 03/31/20 24 04/01/2024 CBC WITH DIFFE RENTI AL/PL ATELE T hematocrit 41.8 % 34.0-4 6.6 normal Not Available [facility] ([facility]) [address] [facility], [place], [address], 04/07/2024 12:36:53 03/31/20 24 04/01/2024 CBC WITH DIFFE RENTI AL/PL ATELE T MCV 91 fL 79-97 normal Not Available [facility] ([facility]) [address] [place], [address], 04/07/2024 12:36:53 03/31/20 24 04/01/2024 CBC WITH DIFFE RENTI AL/PL ATELE T MCH 29.7 pg 26.6-3 3.0 normal Not Available [facility] ([facility]) [address] [facility], [place], [address], 04/07/2024 12:36:53 03/31/20 24 04/01/2024 CBC WITH DIFFE RENTI AL/PL ATELE T MCHC 32.8 g/dL 31.5-3 5.7 normal Not Available [facility] ([facility]) [address] [place], [address], 04/07/2024 12:36:53 03/31/20 24 04/01/2024 CBC WITH DIFFE RENTI AL/PL ATELE T RDW 12.6 % 11.7-1 5.4 Not Available [facility] ([facility]) [address] [place], [address], 04/07/2024 12:36:53 03/31/20 24 04/01/2024 CBC WITH DIFFE RENTI AL/PL ATELE T platelets 372 x10e3 /uL 150-45 0 normal Not Available [facility] ([facility]) [address] [place], [address], 04/07/2024 12:36:53 03/31/20 24 04/01/2024 CBC WITH DIFFE RENTI AL/PL ATELE T neutrophils 64 % not estab. normal Not Available [facility] ([facility]) [address] [facility], [place], [address], 04/07/2024 12:36:53 03/31/20 24 04/01/2024 CBC WITH DIFFE RENTI AL/PL ATELE T lymphs 24 % not estab. normal Not Available [facility] ([facility]) [address] [facility], [place], [address], 04/07/2024 12:36:53 03/31/20 24 04/01/2024 CBC WITH DIFFE RENTI AL/PL ATELE T monocytes 7 % not estab. normal Not Available [facility] ([facility]) [address] [facility], [place], [address], 04/07/2024 12:36:53 03/31/20 24 04/01/2024 CBC WITH DIFFE RENTI AL/PL ATELE T eos 4 % not estab. normal Not Available [facility] ([facility]) [address] [facility], [place], [address], 04/07/2024 12:36:53 03/31/20 24 04/01/2024 CBC WITH DIFFE RENTI AL/PL ATELE T basos 1 % not estab. normal Not Available [facility] ([facility]) [address] [facility], [place], [address], 04/07/2024 12:36:53 03/31/20 24 04/01/2024 CBC WITH DIFFE RENTI AL/PL ATELE T immature cells EQUIPMENT RECORDS SUPERVISOR Not Available [facility] ([facility]) [address] [place], [address], 04/07/2024 12:36:53 03/31/20 24 04/01/2024 CBC WITH DIFFE RENTI AL/PL ATELE T neutrophils (absolute) 4.6 x10e3 /uL 1.4-7. 0 normal Not Available [facility] ([facility]) [address] [place], [address], 04/07/2024 12:36:53 03/31/20 24 04/01/2024 CBC WITH DIFFE RENTI AL/PL ATELE T lymphs (absolute) 1.8 x10e3 /uL 0.7-3. 1 normal Not Available [facility] ([facility]) [address] [place], [address], 04/07/2024 12:36:53 03/31/20 24 04/01/2024 CBC WITH DIFFE RENTI AL/PL ATELE T monocytes(ab solute) 0.5 x10e3 /uL 0.1-0. 9 normal Not Available [facility] ([facility]) [address] [place], [address], 04/07/2024 12:36:53 03/31/20 24 04/01/2024 CBC WITH DIFFE RENTI AL/PL ATELE T eos (absolute) 0.3 x10e3 /uL 0.0-0. 4 normal Not Available [facility] ([facility]) [address] [place], [address], 04/07/2024 12:36:53 03/31/20 24 04/01/2024 CBC WITH DIFFE RENTI AL/PL ATELE T baso (absolute) 0.1 x10e3 /uL 0.0-0. 2 normal Not Available [facility] ([facility]) [address] [place], [address], 04/07/2024 12:36:53 03/31/20 24 04/01/2024 CBC WITH DIFFE RENTI AL/PL ATELE T immature granulocytes 0 % not estab. Not Available [facility] ([facility]) [address] [place], [address], 04/07/2024 12:36:53 03/31/20 24 04/01/2024 CBC WITH DIFFE RENTI AL/PL ATELE T immature grans (abs) 0.0 x10e3 /uL 0.0-0. 1 Not Available [facility] ([facility]) [address] [facility], [place], [address], 04/07/2024 12:36:53 03/31/20 24 04/01/2024 CBC WITH DIFFE RENTI AL/PL ATELE T NRBC EQUIPMENT RECORDS SUPERVISOR Not Available [facility] ([facility]) [address] [facility], [place], [address], 04/07/2024 12:36:53 03/31/20 24 04/01/2024 CBC WITH DIFFE RENTI AL/PL ATELE T hematology comments: EQUIPMENT RECORDS SUPERVISOR Not Available [facility] ([facility]) [address] [facility], [place], [address], 04/07/2024 12:36:53 03/31/20 24 04/01/2024 COMP. METAB OLIC PANEL (14) glucose 86 mg/dL 70-99 normal Not Available [facility] ([facility]) [address] [facility], [place], [address], 04/07/2024 12:36:53 03/31/20 24 04/01/2024 COMP. METAB OLIC PANEL (14) BUN 6 mg/dL 6-24 normal Not Available [facility] ([facility]) [address] [facility], [place], [address], 04/07/2024 12:36:53 03/31/20 24 04/01/2024 COMP. METAB OLIC PANEL (14) creatinine 0.73 mg/dL 0.57-1 .00 normal Not Available [facility] ([facility]) [address] [facility], [place], [address], 04/07/2024 12:36:53 03/31/20 24 04/01/2024 COMP. METAB OLIC PANEL (14) eGFR 95 mL/mi n/1.7 3 >59 normal Not Available [facility] ([facility]) [address] [facility] [place], [address], 04/07/2024 12:36:53 03/31/20 24 04/01/2024 COMP. METAB OLIC PANEL (14) BUN/creatini ne ratio 8 9-23 below low normal Not Available [facility] ([facility]) [address] [facility] [place], [address], 04/07/2024 12:36:53 03/31/20 24 04/01/2024 COMP. METAB OLIC PANEL (14) sodium 132 mmol/ L 134-14 4 below low normal Not Available [facility] ([facility]) [address] [facility] [place], [address], 04/07/2024 12:36:53 03/31/20 24 04/01/2024 COMP. METAB OLIC PANEL (14) potassium 4.6 mmol/ L 3.5-5. 2 normal Not Available [facility] ([facility]) [address] [facility] [place], [address], 04/07/2024 12:36:53 03/31/20 24 04/01/2024 COMP. METAB OLIC PANEL (14) chloride 93 mmol/ L 96-106 below low normal Not Available [facility] ([facility]) [address] [facility] [place], [address], 04/07/2024 12:36:53 03/31/20 24 04/01/2024 COMP. METAB OLIC PANEL (14) carbon dioxide, total 27 mmol/ L 20-29 normal Not Available [facility] ([facility]) [address] [facility] [place], [address], 04/07/2024 12:36:53 03/31/20 24 04/01/2024 COMP. METAB OLIC PANEL (14) calcium 9.1 mg/dL 8.7-10 .2 normal Not Available [facility] ([facility]) [address] [place], [address], 04/07/2024 12:36:53 03/31/20 24 04/01/2024 COMP. METAB OLIC PANEL (14) protein, total 6.1 g/dL 6.0-8. 5 normal Not Available [facility] ([facility]) [address] [place], [address], 04/07/2024 12:36:53 03/31/20 24 04/01/2024 COMP. METAB OLIC PANEL (14) albumin 4.0 g/dL 3.8-4. 9 normal Not Available [facility] ([facility]) [address] [place], [address], 04/07/2024 12:36:53 03/31/20 24 04/01/2024 COMP. METAB OLIC PANEL (14) globulin, total 2.1 g/dL 1.5-4. 5 Not Available [facility] ([facility]) [address] [place], [address], 04/07/2024 12:36:53 03/31/20 24 04/01/2024 COMP. METAB OLIC PANEL (14) bilirubin, total 0.4 mg/dL 0.0-1. 2 normal Not Available [facility] ([facility]) [address] [place], [address], 04/07/2024 12:36:53 03/31/20 24 04/01/2024 COMP. METAB OLIC PANEL (14) alkaline phosphatase 137 IU/L 44-121 above high normal Not Available [facility] ([facility]) [address] [place], [address], 04/07/2024 12:36:53 03/31/20 24 04/01/2024 COMP. METAB OLIC PANEL (14) AST (SGOT) 15 IU/L 0-40 normal Not Available [facility] ([facility]) [address] [facility], [place], [address], 04/07/2024 12:36:53 03/31/20 24 04/01/2024 COMP. METAB OLIC PANEL (14) ALT (SGPT) 16 IU/L 0-32 normal Not Available [facility] ([facility]) [address] [facility], [place], [address], 04/07/2024 12:36:53 03/31/20 24 04/01/2024 LIPID PANEL cholesterol, total 190 mg/dL 100-19 9 normal Not Available [facility] ([facility]) [address] [place], [address], 04/07/2024 12:36:54 03/31/20 24 04/01/2024 LIPID PANEL triglyceride s 78 mg/dL 0-149 normal Not Available [facility] ([facility]) [address] [place], [address], 04/07/2024 12:36:54 03/31/20 24 04/01/2024 LIPID PANEL HDL cholesterol 78 mg/dL >39 normal Not Available [facility] ([facility]) [address] [facility], [place], [address], 04/07/2024 12:36:54 03/31/20 24 04/01/2024 LIPID PANEL VLDL cholesterol sharon 14 mg/dL 5-40 Not Available [facility] ([facility]) [address] [place], [address], 04/07/2024 12:36:54 03/31/20 24 04/01/2024 LIPID PANEL LDL chol calc ([facility]) 98 mg/dL 0-99 Not Available [facility] ([facility]) [address] [place], [address], 04/07/2024 12:36:54 03/31/20 24 04/01/2024 LIPID PANEL LDL calc comment: EQUIPMENT RECORDS SUPERVISOR Not Available [facility] ([facility]) [address] [facility], [place], [address], 04/07/2024 12:36:54 03/31/20 24 04/03/2024 VITAM IN E vitamin E(alpha tocopherol) 10.8 mg/L 7.0-25 .1 Not Available [facility] ([facility]) [address] [facility], [place], [address], 04/07/2024 12:36:54 03/31/20 24 04/03/2024 VITAM IN [...] in E defic ient. Not Available [facility] ([facility]) [address] [facility], [place], [address], 04/07/2024 12:36:54 03/31/20 24 04/01/2024 HEMOG LOBIN A1C hemoglobin A1C 5.3 % 4.8-5. 6 normal Predi abete s: 5.7 - 6.4 Diabe zoila: >6.4 Glyce carol contr ol for adult s with diabe zoila: <7.0 Not Available [facility] ([facility]) [address] [facility], [place], [address], 04/07/2024 12:36:55 03/31/20 24 04/01/2024 FOLAT E (FOLI C ACID) , SERUM folate (folic acid), serum 13.3 NG/mL >3.0 normal A serum folat e mikaela ntrat ion of less than 3.1 ng/mL is consi dered to repre sent clini sharon defic iency . Not Available [facility] ([facility]) [address] [facility], [place], [address], 04/07/2024 12:36:55 03/31/20 24 04/03/2024 VITAM IN [...] Drug Admin istra tion. Not Available [facility] ([facility]) [address] [facility], [place], [address], 04/07/2024 12:36:56 03/31/20 24 04/01/2024 VITAM IN [...] Karis bunch [place]: [facility] Press . 2. Dipak mejia [place], Henry waller [place], Che off-F thierno i FARRELL, et al. Evalu ation , treat ment, and preve ntion of vitam in D defic iency : an Endoc rine Socie ty clini sharon pract ice guide line. JCEM. 2010; 96(7) :1911 -30. Not Available [facility] ([facility]) [address] [place], [address], 04/07/2024 12:36:56 03/31/20 24 04/02/2024 VITAM IN B1 (THIA MINE) , BLOOD vit. B1, whole blood 128.8 nmol/ L 66.5-2 00.0 Not Available [facility] ([facility]) [address] [place], [address], 04/07/2024 12:36:57 03/31/20 24 04/07/2024 METHY LMALO INDIGO ACID, SERUM methylmaloni c acid, serum 153 nmol/ L 0-378 Not Available [facility] ([facility]) [address] [place], [address], 04/07/2024 12:36:57 03/31/20 24 04/02/2024 COPPE R, SERUM OR PLASM A copper, serum or plasma 117 ug/dL 80-158 Detec tion Limit = 5 Not Available [facility] ([facility]) [address] [place], [address], 04/07/2024 12:36:58 03/31/20 24 04/02/2024 ZINC, PLASM A OR SERUM zinc, plasma or serum 46 ug/dL 44-115 normal Detec tion Limit = 5 Not Available [facility] ([facility]) [address] [place], [address], 04/07/2024 12:36:58 03/31/20 24 04/01/2024 PREAL BUMIN prealbumin 18 mg/dL 10-36 Not Available [facility] ([facility]) [address] [place], [address], 04/07/2024 12:36:59 03/31/20 24 04/04/2024 SELEN IUM, BLOOD selenium, blood 166 ug/L 100-34 0 Detec tion Limit = 10 Not Available [facility] ([facility]) [address] [place], [address], 04/07/2024 12:36:59 08/18/20 24 08/19/2024 FE+TI BC+FE R iron bind.cap.(TI BC) 307 ug/dL 250-45 0 normal Not Available [facility] ([facility]) [address] [facility], [place], [address], 08/25/2024 14:37:31 08/18/20 24 08/19/2024 FE+TI BC+FE R UIBC 208 ug/dL 131-42 5 normal Not Available [facility] ([facility]) [address] [place], [address], 08/25/2024 14:37:31 08/18/20 24 08/19/2024 FE+TI BC+FE R iron 99 ug/dL 27-159 normal Not Available [facility] ([facility]) [address] [facility], [place], [address], 08/25/2024 14:37:31 08/18/20 24 08/19/2024 FE+TI BC+FE R iron saturation 32 % 15-55 normal Not Available [facility] ([facility]) [address] [place], [address], 08/25/2024 14:37:31 08/18/20 24 08/19/2024 FE+TI BC+FE R ferritin 421 NG/mL 15-150 above high normal Not Available [facility] ([facility]) [address] [place], [address], 08/25/2024 14:37:31 08/18/20 24 08/19/2024 TSH+F REE T4 TSH 1.170 uIU/m L 0.450- 4.500 normal Not Available [facility] ([facility]) [address] [place], [address], 08/25/2024 14:37:32 08/18/20 24 08/19/2024 TSH+F REE T4 T4,free(dire ct) 1.65 NG/dL 0.82-1 .77 normal Not Available [facility] ([facility]) [address] [place], [address], 08/25/2024 14:37:32 08/18/20 24 08/19/2024 CBC WITH DIFFE RENTI AL/PL ATELE T WBC 6.4 x10e3 /uL 3.4-10 .8 normal Not Available [facility] ([facility]) [address] [place], [address], 08/25/2024 14:37:32 08/18/20 24 08/19/2024 CBC WITH DIFFE RENTI AL/PL ATELE T RBC 4.49 x10e6 /uL 3.77-5 .28 normal Not Available [facility] ([facility]) [address] [place], [address], 08/25/2024 14:37:32 08/18/20 24 08/19/2024 CBC WITH DIFFE RENTI AL/PL ATELE T hemoglobin 13.4 g/dL 11.1-1 5.9 normal Not Available [facility] ([facility]) [address] [place], [address], 08/25/2024 14:37:32 08/18/20 24 08/19/2024 CBC WITH DIFFE RENTI AL/PL ATELE T hematocrit 40.9 % 34.0-4 6.6 normal Not Available [facility] ([facility]) [address] [place], [address], 08/25/2024 14:37:32 08/18/20 24 08/19/2024 CBC WITH DIFFE RENTI AL/PL ATELE T MCV 91 fL 79-97 normal Not Available [facility] ([facility]) [address] [place], [address], 08/25/2024 14:37:32 08/18/20 24 08/19/2024 CBC WITH DIFFE RENTI AL/PL ATELE T MCH 29.8 pg 26.6-3 3.0 normal Not Available [facility] ([facility]) [address] [facility], [place], [address], 08/25/2024 14:37:32 08/18/20 24 08/19/2024 CBC WITH DIFFE RENTI AL/PL ATELE T MCHC 32.8 g/dL 31.5-3 5.7 normal Not Available [facility] ([facility]) [address] [facility], [place], [address], 08/25/2024 14:37:32 08/18/20 24 08/19/2024 CBC WITH DIFFE RENTI AL/PL ATELE T RDW 12.5 % 11.7-1 5.4 Not Available [facility] ([facility]) [address] [facility], [place], [address], 08/25/2024 14:37:32 08/18/20 24 08/19/2024 CBC WITH DIFFE RENTI AL/PL ATELE T platelets 400 x10e3 /uL 150-45 0 normal Not Available [facility] ([facility]) [address] [facility], [place], [address], 08/25/2024 14:37:32 08/18/20 24 08/19/2024 CBC WITH DIFFE RENTI AL/PL ATELE T neutrophils 52 % not estab. normal Not Available [facility] ([facility]) [address] [facility], [place], [address], 08/25/2024 14:37:32 08/18/20 24 08/19/2024 CBC WITH DIFFE RENTI AL/PL ATELE T lymphs 34 % not estab. normal Not Available [facility] ([facility]) [address] [facility], [place], [address], 08/25/2024 14:37:32 08/18/20 24 08/19/2024 CBC WITH DIFFE RENTI AL/PL ATELE T monocytes 9 % not estab. normal Not Available [facility] ([facility]) [address] [facility], [place], [address], 08/25/2024 14:37:32 08/18/20 24 08/19/2024 CBC WITH DIFFE RENTI AL/PL ATELE T eos 4 % not estab. normal Not Available [facility] ([facility]) [address] [facility], [place], [address], 08/25/2024 14:37:32 08/18/20 24 08/19/2024 CBC WITH DIFFE RENTI AL/PL ATELE T basos 1 % not estab. normal Not Available [facility] ([facility]) [address] [facility], [place], [address], 08/25/2024 14:37:32 08/18/20 24 08/19/2024 CBC WITH DIFFE RENTI AL/PL ATELE T immature cells EQUIPMENT RECORDS SUPERVISOR Not Available [facility] ([facility]) [address] [place], [address], 08/25/2024 14:37:32 08/18/20 24 08/19/2024 CBC WITH DIFFE RENTI AL/PL ATELE T neutrophils (absolute) 3.4 x10e3 /uL 1.4-7. 0 normal Not Available [facility] ([facility]) [address] [place], [address], 08/25/2024 14:37:32 08/18/20 24 08/19/2024 CBC WITH DIFFE RENTI AL/PL ATELE T lymphs (absolute) 2.2 x10e3 /uL 0.7-3. 1 normal Not Available [facility] ([facility]) [address] [place], [address], 08/25/2024 14:37:32 08/18/20 24 08/19/2024 CBC WITH DIFFE RENTI AL/PL ATELE T monocytes(ab solute) 0.6 x10e3 /uL 0.1-0. 9 normal Not Available [facility] ([facility]) [address] [facility], [place], [address], 08/25/2024 14:37:32 08/18/20 24 08/19/2024 CBC WITH DIFFE RENTI AL/PL ATELE T eos (absolute) 0.3 x10e3 /uL 0.0-0. 4 normal Not Available [facility] ([facility]) [address] [facility], [place], [address], 08/25/2024 14:37:32 08/18/20 24 08/19/2024 CBC WITH DIFFE RENTI AL/PL ATELE T baso (absolute) 0.1 x10e3 /uL 0.0-0. 2 normal Not Available [facility] ([facility]) [address] [facility], [place], [address], 08/25/2024 14:37:32 08/18/20 24 08/19/2024 CBC WITH DIFFE RENTI AL/PL ATELE T immature granulocytes 0 % not estab. Not Available [facility] ([facility]) [address] [facility], [place], [address], 08/25/2024 14:37:32 08/18/20 24 08/19/2024 CBC WITH DIFFE RENTI AL/PL ATELE T immature grans (abs) 0.0 x10e3 /uL 0.0-0. 1 Not Available [facility] ([facility]) [address] [facility], [place], [address], 08/25/2024 14:37:32 08/18/20 24 08/19/2024 CBC WITH DIFFE RENTI AL/PL ATELE T NRBC EQUIPMENT RECORDS SUPERVISOR Not Available [facility] ([facility]) [address] [facility], [place], [address], 08/25/2024 14:37:32 08/18/20 24 08/19/2024 CBC WITH DIFFE RENTI AL/PL AMANDA T hematology comments: EQUIPMENT RECORDS SUPERVISOR Not Available [facility] ([facility]) [address] [facility], [place], [address], 08/25/2024 14:37:32 08/18/20 24 08/19/2024 COMP. METAB OLIC PANEL (14) glucose 56 mg/dL 70-99 below low normal Not Available [facility] ([facility]) [address] [facility] [place], [address], 08/25/2024 14:37:34 08/18/20 24 08/19/2024 COMP. METAB OLIC PANEL (14) BUN 6 mg/dL 6-24 normal Not Available [facility] ([facility]) [address] [facility], [place], [address], 08/25/2024 14:37:34 08/18/20 24 08/19/2024 COMP. METAB OLIC PANEL (14) creatinine 0.78 mg/dL 0.57-1 .00 normal Not Available [facility] ([facility]) [address] [facility] [place], [address], 08/25/2024 14:37:34 08/18/20 24 08/19/2024 COMP. METAB OLIC PANEL (14) eGFR 88 mL/mi n/1.7 3 >59 normal Not Available [facility] ([facility]) [address] [facility] [place], [address], 08/25/2024 14:37:34 08/18/20 24 08/19/2024 COMP. METAB OLIC PANEL (14) BUN/creatini ne ratio 8 9-23 below low normal Not Available [facility] ([facility]) [address] [facility] [place], [address], 08/25/2024 14:37:34 08/18/20 24 08/19/2024 COMP. METAB OLIC PANEL (14) sodium 129 mmol/ L 134-14 4 below low normal Not Available [facility] ([facility]) [address] [place], [address], 08/25/2024 14:37:34 08/18/20 24 08/19/2024 COMP. METAB OLIC PANEL (14) potassium 4.8 mmol/ L 3.5-5. 2 normal Not Available [facility] ([facility]) [address] [place], [address], 08/25/2024 14:37:34 08/18/20 24 08/19/2024 COMP. METAB OLIC PANEL (14) chloride 90 mmol/ L 96-106 below low normal Not Available [facility] ([facility]) [address] [place], [address], 08/25/2024 14:37:34 08/18/20 24 08/19/2024 COMP. METAB OLIC PANEL (14) carbon dioxide, total 21 mmol/ L 20-29 normal Not Available [facility] ([facility]) [address] [facility], [place], [address], 08/25/2024 14:37:34 08/18/20 24 08/19/2024 COMP. METAB OLIC PANEL (14) calcium 8.9 mg/dL 8.7-10 .2 normal Not Available [facility] ([facility]) [address] [facility] [place], [address], 08/25/2024 14:37:34 08/18/20 24 08/19/2024 COMP. METAB OLIC PANEL (14) protein, total 6.3 g/dL 6.0-8. 5 normal Not Available [facility] ([facility]) [address] [facility] [place], [address], 08/25/2024 14:37:34 08/18/20 24 08/19/2024 COMP. METAB OLIC PANEL (14) albumin 3.9 g/dL 3.8-4. 9 normal Not Available [facility] ([facility]) [address] [facility] [place], [address], 08/25/2024 14:37:34 08/18/20 24 08/19/2024 COMP. METAB OLIC PANEL (14) globulin, total 2.4 g/dL 1.5-4. 5 Not Available [facility] ([facility]) [address] [facility] [place], [address], 08/25/2024 14:37:34 08/18/20 24 08/19/2024 COMP. METAB OLIC PANEL (14) bilirubin, total 0.3 mg/dL 0.0-1. 2 normal Not Available [facility] ([facility]) [address] [facility] [place], [address], 08/25/2024 14:37:34 08/18/20 24 08/19/2024 COMP. METAB OLIC PANEL (14) alkaline phosphatase 152 IU/L 44-121 above high normal Not Available [facility] ([facility]) [address] [facility] [place], [address], 08/25/2024 14:37:34 08/18/20 24 08/19/2024 COMP. METAB OLIC PANEL (14) AST (SGOT) 21 IU/L 0-40 normal Not Available [facility] ([facility]) [address] [facility] [place], [address], 08/25/2024 14:37:34 08/18/20 24 08/19/2024 COMP. METAB OLIC PANEL (14) ALT (SGPT) 20 IU/L 0-32 normal Not Available [facility] ([facility]) [address] [facility] [place], [address], 08/25/2024 14:37:34 08/18/20 24 08/19/2024 LIPID PANEL cholesterol, total 175 mg/dL 100-19 9 normal Not Available [facility] ([facility]) [address] [facility] [place], [address], 08/25/2024 14:37:35 08/18/20 24 08/19/2024 LIPID PANEL triglyceride s 99 mg/dL 0-149 normal Not Available [facility] ([facility]) [address] [place], [address], 08/25/2024 14:37:35 08/18/20 24 08/19/2024 LIPID PANEL HDL cholesterol 90 mg/dL >39 normal Not Available [facility] ([facility]) [address] [facility], [place], [address], 08/25/2024 14:37:35 08/18/20 24 08/19/2024 LIPID PANEL VLDL cholesterol sharon 17 mg/dL 5-40 Not Available [facility] ([facility]) [address] [place], [address], 08/25/2024 14:37:35 08/18/20 24 08/19/2024 LIPID PANEL LDL chol calc ([facility]) 68 mg/dL 0-99 Not Available [facility] ([facility]) [address] [facility], [place], [address], 08/25/2024 14:37:35 08/18/20 24 08/19/2024 LIPID PANEL LDL calc comment: EQUIPMENT RECORDS SUPERVISOR Not Available [facility] ([facility]) [address] [facility], [place], [address], 08/25/2024 14:37:35 08/18/20 24 08/24/2024 VITAM IN E vitamin E(alpha tocopherol) 9.3 mg/L 7.0-25 .1 Not Available [facility] ([facility]) [address] [place], [address], 08/25/2024 14:37:36 08/18/20 24 08/24/2024 VITAM IN [...] in E defic ient. Not Available [facility] ([facility]) [address] [facility], [place], [address], 08/25/2024 14:37:36 08/18/20 24 08/19/2024 HEMOG LOBIN A1C hemoglobin A1C 5.8 % 4.8-5. 6 above high normal Predi abete s: 5.7 - 6.4 Diabe zoila: >6.4 Glyce carol contr ol for adult s with diabe zoila: <7.0 Not Available [facility] ([facility]) [address] [facility], [place], [address], 08/25/2024 14:37:37 08/18/20 24 08/19/2024 FOLAT E (FOLI C ACID) , SERUM folate (folic acid), serum 13.4 NG/mL >3.0 normal A serum folat e mikaela ntrat ion of less than 3.1 ng/mL is consi dered to repre sent clini sharon defic iency . Not Available [facility] ([facility]) [address] [facility], [place], [address], 08/25/2024 14:37:38 08/18/20 24 08/24/2024 VITAM IN [...] Drug Admin istra tion. Not Available [facility] ([facility]) [address] [place], [address], 08/25/2024 14:37:38 08/18/20 24 08/19/2024 VITAM IN [...] um and D. Karis bunch [place]: The [facility] . 2. Dipak mejia MF, Henry waller [place], [place] off-F errar i FARRELL, et al. Evalu ation , treat ment, and preve ntion of vitam in D defic iency : an Endoc rine Socie ty clini sharon pract ice guide line. JCEM. 2010; 96(7) :1911 -30. Not Available [facility] ([facility]) [address] [place], [address], 08/25/2024 14:37:39 08/18/20 24 08/25/2024 VITAM IN B1 (THIA MINE) , BLOOD vit. B1, whole blood 121.7 nmol/ L 66.5-2 00.0 Not Available [facility] ([facility]) [address] [place], [address], 08/25/2024 14:37:40 08/18/20 24 08/21/2024 METHY LMALO INDIGO ACID, SERUM methylmaloni c acid, serum 130 nmol/ L 0-378 Not Available [facility] ([facility]) [address] [place], [address], 08/25/2024 14:37:41 08/18/20 24 08/19/2024 COPPE R, SERUM OR PLASM A copper, serum or plasma 132 ug/dL 80-158 Detec tion Limit = 5 Not Available [facility] ([facility]) [address] [facility], [place], [address], 08/25/2024 14:37:42 08/18/20 24 08/19/2024 ZINC, PLASM A OR SERUM zinc, plasma or serum 52 ug/dL 44-115 normal Detec tion Limit = 5 Not Available [facility] ([facility]) [address] [place], [address], 08/25/2024 14:37:43 08/18/20 24 08/19/2024 PREAL BUMIN prealbumin 19 mg/dL 10-36 Not Available [facility] ([facility]) [address] [place], [address], 08/25/2024 14:37:44 08/18/20 24 08/22/2024 SELEN IUM, BLOOD selenium, blood 116 ug/L 100-34 0 Detec tion Limit = 10 Not Available [facility] ([facility]) [address] [place], [address], 08/25/2024 14:37:45 11/18/19 25 11/18/2024 FE+TI BC+FE R iron bind.cap.(TI BC) 251 ug/dL 250-45 0 normal Not Available [facility] ([facility]) [address] [place], [address], 11/28/2024 18:38:00 11/18/19 25 11/18/2024 FE+TI BC+FE R UIBC 188 ug/dL 131-42 5 normal Not Available [facility] ([facility]) [address] [place], [address], 11/28/2024 18:38:00 11/18/19 25 11/18/2024 FE+TI BC+FE R iron 63 ug/dL 27-159 normal Not Available [facility] ([facility]) [address] [place], [address], 11/28/2024 18:38:00 11/18/19 25 11/18/2024 FE+TI BC+FE R iron saturation 25 % 15-55 normal Not Available [facility] ([facility]) [address] [place], [address], 11/28/2024 18:38:00 11/18/19 25 11/18/2024 FE+TI BC+FE R ferritin 271 NG/mL 15-150 above high normal Not Available [facility] ([facility]) [address] [place], [address], 11/28/2024 18:38:00 11/18/19 25 11/18/2024 TSH+F REE T4 TSH 28.400 uIU/m L 0.450- 4.500 above high normal Not Available [facility] ([facility]) [address] [place], [address], 11/28/2024 18:38:01 11/18/19 25 11/18/2024 TSH+F REE T4 T4,free(dire ct) 0.70 NG/dL 0.82-1 .77 below low normal Not Available [facility] ([facility]) [address] [place], [address], 11/28/2024 18:38:01 11/18/19 25 11/18/2024 CBC WITH DIFFE RENTI AL/PL ATELE T WBC 6.4 x10e3 /uL 3.4-10 .8 normal Not Available [facility] ([facility]) [address] [place], [address], 11/28/2024 18:38:02 11/18/19 25 11/18/2024 CBC WITH DIFFE RENTI AL/PL ATELE T RBC 4.36 x10e6 /uL 3.77-5 .28 normal Not Available [facility] ([facility]) [address] [place], [address], 11/28/2024 18:38:02 11/18/19 25 11/18/2024 CBC WITH DIFFE RENTI AL/PL ATELE T hemoglobin 13.0 g/dL 11.1-1 5.9 normal Not Available [facility] ([facility]) [address] [place], [address], 11/28/2024 18:38:02 11/18/19 25 11/18/2024 CBC WITH DIFFE RENTI AL/PL ATELE T hematocrit 39.6 % 34.0-4 6.6 normal Not Available [facility] ([facility]) [address] [place], [address], 11/28/2024 18:38:02 11/18/19 25 11/18/2024 CBC WITH DIFFE RENTI AL/PL ATELE T MCV 91 fL 79-97 normal Not Available [facility] ([facility]) [address] [place], [address], 11/28/2024 18:38:02 11/18/19 25 11/18/2024 CBC WITH DIFFE RENTI AL/PL ATELE T MCH 29.8 pg 26.6-3 3.0 normal Not Available [facility] ([facility]) [address] [place], [address], 11/28/2024 18:38:02 11/18/19 25 11/18/2024 CBC WITH DIFFE RENTI AL/PL ATELE T MCHC 32.8 g/dL 31.5-3 5.7 normal Not Available [facility] ([facility]) [address] [place], [address], 11/28/2024 18:38:02 11/18/19 25 11/18/2024 CBC WITH DIFFE RENTI AL/PL ATELE T RDW 12.5 % 11.7-1 5.4 Not Available [facility] ([facility]) [address] [facility], [place], [address], 11/28/2024 18:38:02 11/18/19 25 11/18/2024 CBC WITH DIFFE RENTI AL/PL ATELE T platelets 312 x10e3 /uL 150-45 0 normal Not Available [facility] ([facility]) [address] [facility], [place], [address], 11/28/2024 18:38:02 11/18/19 25 11/18/2024 CBC WITH DIFFE RENTI AL/PL ATELE T neutrophils 66 % not estab. normal Not Available [facility] ([facility]) [address] [facility], [place], [address], 11/28/2024 18:38:02 11/18/19 25 11/18/2024 CBC WITH DIFFE RENTI AL/PL ATELE T lymphs 23 % not estab. normal Not Available [facility] ([facility]) [address] [facility], [place], [address], 11/28/2024 18:38:02 11/18/19 25 11/18/2024 CBC WITH DIFFE RENTI AL/PL ATELE T monocytes 7 % not estab. normal Not Available [facility] ([facility]) [address] [facility], [place], [address], 11/28/2024 18:38:02 11/18/19 25 11/18/2024 CBC WITH DIFFE RENTI AL/PL ATELE T eos 3 % not estab. normal Not Available [facility] ([facility]) [address] [facility], [place], [address], 11/28/2024 18:38:02 11/18/19 25 11/18/2024 CBC WITH DIFFE RENTI AL/PL ATELE T basos 1 % not estab. normal Not Available [facility] ([facility]) [address] [facility], [place], [address], 11/28/2024 18:38:02 11/18/19 25 11/18/2024 CBC WITH DIFFE RENTI AL/PL ATELE T immature cells EQUIPMENT RECORDS SUPERVISOR Not Available [facility] ([facility]) [address] [facility], [place], [address], 11/28/2024 18:38:02 11/18/19 25 11/18/2024 CBC WITH DIFFE RENTI AL/PL ATELE T neutrophils (absolute) 4.2 x10e3 /uL 1.4-7. 0 normal Not Available [facility] ([facility]) [address] [facility], [place], [address], 11/28/2024 18:38:02 11/18/19 25 11/18/2024 CBC WITH DIFFE RENTI AL/PL ATELE T lymphs (absolute) 1.5 x10e3 /uL 0.7-3. 1 normal Not Available [facility] ([facility]) [address] [place], [address], 11/28/2024 18:38:02 11/18/19 25 11/18/2024 CBC WITH DIFFE RENTI AL/PL ATELE T monocytes(ab solute) 0.5 x10e3 /uL 0.1-0. 9 normal Not Available [facility] ([facility]) [address] [facility], [place], [address], 11/28/2024 18:38:02 11/18/19 25 11/18/2024 CBC WITH DIFFE RENTI AL/PL ATELE T eos (absolute) 0.2 x10e3 /uL 0.0-0. 4 normal Not Available [facility] ([facility]) [address] [place], [address], 11/28/2024 18:38:02 11/18/19 25 11/18/2024 CBC WITH DIFFE RENTI AL/PL ATELE T baso (absolute) 0.1 x10e3 /uL 0.0-0. 2 normal Not Available [facility] ([facility]) [address] [facility], [place], [address], 11/28/2024 18:38:02 11/18/19 25 11/18/2024 CBC WITH DIFFE RENTI AL/PL ATELE T immature granulocytes 0 % not estab. Not Available [facility] ([facility]) [address] [facility], [place], [address], 11/28/2024 18:38:02 11/18/19 25 11/18/2024 CBC WITH DIFFE RENTI AL/PL ATELE T immature grans (abs) 0.0 x10e3 /uL 0.0-0. 1 Not Available [facility] ([facility]) [address] [facility], [place], [address], 11/28/2024 18:38:02 11/18/19 25 11/18/2024 CBC WITH DIFFE RENTI AL/PL ATELE T NRBC EQUIPMENT RECORDS SUPERVISOR Not Available [facility] ([facility]) [address] [facility], [place], [address], 11/28/2024 18:38:02 11/18/19 25 11/18/2024 CBC WITH DIFFE RENTI AL/PL ATELE T hematology comments: EQUIPMENT RECORDS SUPERVISOR Not Available [facility] ([facility]) [address] [facility], [place], [address], 11/28/2024 18:38:02 11/18/19 25 11/18/2024 COMP. METAB OLIC PANEL (14) glucose 78 mg/dL 70-99 normal Not Available [facility] ([facility]) [address] [place], [address], 11/28/2024 18:38:03 11/18/19 25 11/18/2024 COMP. METAB OLIC PANEL (14) BUN 7 mg/dL 6-24 normal Not Available [facility] ([facility]) [address] [facility] [place], [address], 11/28/2024 18:38:03 11/18/19 25 11/18/2024 COMP. METAB OLIC PANEL (14) creatinine 0.93 mg/dL 0.57-1 .00 normal Not Available [facility] ([facility]) [address] [facility] [place], [address], 11/28/2024 18:38:03 11/18/19 25 11/18/2024 COMP. METAB OLIC PANEL (14) eGFR 71 mL/mi n/1.7 3 >59 normal Not Available [facility] ([facility]) [address] [facility] [place], [address], 11/28/2024 18:38:03 11/18/19 25 11/18/2024 COMP. METAB OLIC PANEL (14) BUN/creatini ne ratio 8 9-23 below low normal Not Available [facility] ([facility]) [address] [facility], [place], [address], 11/28/2024 18:38:03 11/18/19 25 11/18/2024 COMP. METAB OLIC PANEL (14) sodium 138 mmol/ L 134-14 4 normal Not Available [facility] ([facility]) [address] [facility] [place], [address], 11/28/2024 18:38:03 11/18/19 25 11/18/2024 COMP. METAB OLIC PANEL (14) potassium 4.2 mmol/ L 3.5-5. 2 normal Not Available [facility] ([facility]) [address] [facility] [place], [address], 11/28/2024 18:38:03 11/18/19 25 11/18/2024 COMP. METAB OLIC PANEL (14) chloride 101 mmol/ L 96-106 normal Not Available [facility] ([facility]) [address] [facility] [place], [address], 11/28/2024 18:38:03 11/18/19 25 11/18/2024 COMP. METAB OLIC PANEL (14) carbon dioxide, total 24 mmol/ L 20-29 normal Not Available [facility] ([facility]) [address] [facility] [place], [address], 11/28/2024 18:38:03 11/18/19 25 11/18/2024 COMP. METAB OLIC PANEL (14) calcium 8.9 mg/dL 8.7-10 .2 normal Not Available [facility] ([facility]) [address] [place], [address], 11/28/2024 18:38:03 11/18/19 25 11/18/2024 COMP. METAB OLIC PANEL (14) protein, total 5.9 g/dL 6.0-8. 5 below low normal Not Available [facility] ([facility]) [address] [facility] [place], [address], 11/28/2024 18:38:03 11/18/19 25 11/18/2024 COMP. METAB OLIC PANEL (14) albumin 3.8 g/dL 3.8-4. 9 normal Not Available [facility] ([facility]) [address] [facility] [place], [address], 11/28/2024 18:38:03 11/18/19 25 11/18/2024 COMP. METAB OLIC PANEL (14) globulin, total 2.1 g/dL 1.5-4. 5 Not Available [facility] ([facility]) [address] [facility] [place], [address], 11/28/2024 18:38:03 11/18/19 25 11/18/2024 COMP. METAB OLIC PANEL (14) bilirubin, total 0.3 mg/dL 0.0-1. 2 normal Not Available [facility] ([facility]) [address] [facility] [place], [address], 11/28/2024 18:38:03 11/18/19 25 11/18/2024 COMP. METAB OLIC PANEL (14) alkaline phosphatase 155 IU/L 44-121 above high normal Not Available [facility] ([facility]) [address] [place], [address], 11/28/2024 18:38:03 11/18/19 25 11/18/2024 COMP. METAB OLIC PANEL (14) AST (SGOT) 22 IU/L 0-40 normal Not Available [facility] ([facility]) [address] [place], [address], 11/28/2024 18:38:03 11/18/19 25 11/18/2024 COMP. METAB OLIC PANEL (14) ALT (SGPT) 19 IU/L 0-32 normal Not Available [facility] ([facility]) [address] [place], [address], 11/28/2024 18:38:03 11/18/19 25 11/18/2024 LIPID PANEL cholesterol, total 179 mg/dL 100-19 9 normal Not Available [facility] ([facility]) [address] [place], [address], 11/28/2024 18:38:03 11/18/19 25 11/18/2024 LIPID PANEL triglyceride s 63 mg/dL 0-149 normal Not Available [facility] ([facility]) [address] [place], [address], 11/28/2024 18:38:03 11/18/19 25 11/18/2024 LIPID PANEL HDL cholesterol 95 mg/dL >39 normal Not Available [facility] ([facility]) [address] [place], [address], 11/28/2024 18:38:03 11/18/19 25 11/18/2024 LIPID PANEL VLDL cholesterol sharon 12 mg/dL 5-40 Not Available [facility] ([facility]) [address] [place], [address], 11/28/2024 18:38:03 11/18/19 25 11/18/2024 LIPID PANEL LDL chol calc ([facility]) 72 mg/dL 0-99 Not Available [facility] ([facility]) [address] [facility], [place], [address], 11/28/2024 18:38:03 11/18/19 25 11/18/2024 LIPID PANEL LDL calc comment: EQUIPMENT RECORDS SUPERVISOR Not Available [facility] ([facility]) [address] [facility], [place], [address], 11/28/2024 18:38:03 11/18/19 25 11/27/2024 VITAM IN E vitamin E(alpha tocopherol) 10.7 mg/L 7.0-25 .1 Not Available [facility] ([facility]) [address] [facility], [place], [address], 11/28/2024 18:38:04 11/18/19 25 11/27/2024 VITAM IN [...] in E defic ient. Not Available [facility] ([facility]) [address] [facility], [place], [address], 11/28/2024 18:38:04 11/18/19 25 11/18/2024 HEMOG LOBIN A1C hemoglobin A1C 5.4 % 4.8-5. 6 normal Predi abete s: 5.7 - 6.4 Diabe zoila: >6.4 Glyce carol contr ol for adult s with diabe zoila: <7.0 Not Available [facility] ([facility]) [address] [place], [address], 11/28/2024 18:38:05 11/18/19 25 11/18/2024 FOLAT E (FOLI C ACID) , SERUM folate (folic acid), serum >20.0 NG/mL >3.0 A serum folat e mikaela ntrat ion of less than 3.1 ng/mL is consi dered to repre sent clini sharon defic iency . Not Available [facility] ([facility]) [address] [facility], [place], [address], 11/28/2024 18:38:05 11/18/19 25 11/27/2024 VITAM IN [...] Drug Admin istra tion. Not Available [facility] ([facility]) [address] [facility], [place], [address], 11/28/2024 18:38:06 11/18/19 25 11/18/2024 VITAM IN [...] um and D. Karis bunch [place]: The [facility] . 2. Dipak mejai MF, Henry waller [place], Che off-F thierno i FARRELL, et al. Evalu ation , treat ment, and preve ntion of vitam in D defic iency : an Endoc rine Socie ty clini sharon pract ice guide line. JCEM. 2010; 96(7) :1911 -30. Not Available [facility] ([facility]) [address] [place], [address], 11/28/2024 18:38:06 11/18/19 25 11/23/2024 VITAM IN B1 (THIA MINE) , BLOOD vit. B1, whole blood 133.4 nmol/ L 66.5-2 00.0 Not Available [facility] ([facility]) [address] [place], [address], 11/28/2024 18:38:07 11/18/19 25 11/23/2024 METHY LMALO INDIGO ACID, SERUM methylmaloni c acid, serum 165 nmol/ L 0-378 Not Available [facility] ([facility]) [address] [place], [address], 11/28/2024 18:38:07 11/18/19 25 11/21/2024 COPPE R, SERUM OR PLASM A copper, serum or plasma 122 ug/dL 80-158 Detec tion Limit = 5 Not Available [facility] ([facility]) [address] [place], [address], 11/28/2024 18:38:08 11/18/19 25 11/21/2024 ZINC, PLASM A OR SERUM zinc, plasma or serum 56 ug/dL 44-115 normal Detec tion Limit = 5 Not Available [facility] ([facility]) [address] [place], [address], 11/28/2024 18:38:08 11/18/19 25 11/18/2024 PREAL BUMIN prealbumin 16 mg/dL 10-36 Not Available [facility] ([facility]) [address] [facility], [place], [address], 11/28/2024 18:38:09 11/18/19 25 11/28/2024 SELEN IUM, BLOOD selenium, blood 115 ug/L 100-34 0 Detec tion Limit = 10 Not Available [facility] ([facility]) [address] [facility], [place], [address], 11/28/2024 18:38:09 Result Notes None recorded. 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 Hilario Woods DNP, PHLEBOTOMY SUPPORT TECH, EQUIPMENT RECORDS SUPERVISOR-C [address] , [place], [address] , [facility] & [place] 4 11:59:38 Hyperlipid emia 73434095 Active 2021 Hilario Woods DNP, SANGEETA, EQUIPMENT RECORDS SUPERVISOR-C [address] , [place] [address] , [facility] & [place] 2 12:50:33 Hypothyroi dism 31108236 Active 2021 Hilario Woods DNP, SANGEETA, EQUIPMENT RECORDS SUPERVISOR-C [address] , [place], [place], [address] [place] [address] , [facility] & [place] 2 12:50:39 History of sleeve gastrectom y 1792780481822 07 Active 2021 Hilario Woods DNP, SANGEETA, EQUIPMENT RECORDS SUPERVISOR-C [address], [place], [address] , [facility] & [place] 2 12:51:22 Essential hypertensi on 27810753 Active 2021 Hilario Woods DNP, SANGEETA, EQUIPMENT RECORDS SUPERVISOR-C [address], [place], [address] , [place] [facility] & [place] 2 13:07:08 Iron deficiency anemia 14391755 Active 2021 Hilario Woods DNP, SANGEETA, EQUIPMENT RECORDS SUPERVISOR-C [address], [place], [address] , [place] [facility] & [place] 2 13:18:48 Heartburn 96502563 Active 2021 Hilario Woods DNP, APRN, EQUIPMENT RECORDS SUPERVISOR-C [address], [place], [address] , [place] & [place] 2 13:39:01 Disorder of function of stomach 186967681 Active 2021 Hilario Woods DNP, APRN, EQUIPMENT RECORDS SUPERVISOR-C [address], [place], [address] , [place] & [place] 2 13:39:09 Morbid obesity 728699689 Active 2022 Hilario Woods DNP, APRN, EQUIPMENT RECORDS SUPERVISOR-C [address], [place], [place], [address] [place] [address] , [place] & [place] 3 09:30:50 Pre-surger y evaluation Active 2022 Hilario Woods DNP, APRN, EQUIPMENT RECORDS SUPERVISOR-C [address], [place], [place], [address] [place] [address] , [place] [facility] [facility] & [place] 3 09:32:01 Nausea 242125878 Active 2022 Hilario Woods DNP, APRN, EQUIPMENT RECORDS SUPERVISOR-C [address], [place], [address] , [place] [facility] [facility] & [place] 3 09:36:40 Unintentio nal weight gain 0464018010611 04 Active 2023 Hilario Woods DNP, APRN, EQUIPMENT RECORDS SUPERVISOR-C [address], [place], [address] , [place] & [place] 4 12:27:34 Vomiting 025653417 Active 2023 Hilario Woods, DNP, PHLEBOTOMY SUPPORT TECH, EQUIPMENT RECORDS SUPERVISOR-C [address], [place], [address] , [place] & [place] 4 14:01:05 Problem Notes None recorded. Procedures Surgical History Date Name Laterality Status Provider Name and Address Organization Details Recorded Time esophagogastroduodenoscopy completed Melanie Cortes [place] & [place] 3 09:26:22 Julio Cesar-en-Y gastrojejunostomy complete d Melanie Cortes [place] & [place] 3 08:29:39 laparoscopic sleeve gastrectomy completed Melanie Cortes [place] & [place] 2 13:00:35 fusion of joint of c ervical spine by anterior approach for deformity of cervical spine completed Melanie Cortes [place] & [place] 2 13:01:48 revision of fusion o f cervical spine completed Melanie Cortes [place] & [place] 2 13:02:08 Stimulation of spinal cord completed Melanie Cortes [place] & [place] 2 13:02:22 esophagogastroduodenoscopy completed Melanie Cortes [place] & [place] 2 13:02:28 Colonoscopy completed Melanie Cortes [place] & [place] 2 13:02:42 Hysterectomy completed Melanie Cortes [place] & [place] 2 13:03:46 cardiac catheterization completed R ebecca Cortes [place] & [place] 2 13:05:15 Imaging Results None recorded. Procedure [...] cm 96.9 [degF] 59 /min 37.5 kg/m2 83834.8 6 g 131 mm[Hg] 83 mm[Hg] Antione Chávez-Bec jassi [place] [facility] 4 10:33:00 Date Recorded Body height Body temperature Body mass index (BMI) Body weight Heart rate Systolic blood pressure Diastolic blood pressure Provider Name and Address Organization Details Last Updated DateTime 4 160.02 cm 98.1 [degF] 35.8 kg/m2 55461.6 6 g 71 /min 119 mm[Hg] 78 mm[Hg] Mary FORDE [facility] & [place] 4 13:41:10 Date Recorded Body height Body temperature Body mass index (BMI) Body weight Heart rate Systolic blood pressure Diastolic blood pressure Provider Name and Address Organization Details Last Updated DateTime 4 160.02 cm 98.1 [degF] 39.8 kg/m2 931284. 92 g 64 /min 137 mm[Hg] 83 mm[Hg] Mary FORDE [facility] & [place] 4 11:41:06 Date Recorded Body height Body temperature Heart rate Body mass index (BMI) Body weight Systolic blood pressure Diastolic blood pressure Provider Name and Address Organization Details Last Updated DateTime 5 160.02 cm 96.3 [degF] 63 /min 44.2 kg/m2 240487. 37 g 153 mm[Hg] 81 mm[Hg] Mary FORDE [facility] & [place] 5 09:14:23 Social History None recorded. Functional Status Question Answer Note LastModified by Organizat ion Details LastModified Time Do you use any illicit or recreational drugs? No [email or web address] Information not available 07/14/2022 What is your level of alcohol consumption? None [email or web address] Information not available 07/14/2022 Mental Status None [...] SNOMED-CT Code Diagnosis ICD10 Code Diagnosis Note [id number] Edharriet Woods DNP, PHLEBOTOMY SUPPORT TECH, EQUIPMENT RECORDS SUPERVISOR-C [facility] [address] [place] [address] 07/14/2022 12:39:25 07/14/2022 14:44:14 History of bariatric surgical procedure 590992272 Z98.84 Advised qid intake 50% protein 6158-1994 calories/d y less than 100 carbs/dy Patient [...] speak with patient today History of gastrectomy 631397231 Z90.3 Patient is status post bariatric surgery and at increased risk for vitamin deficienci es and malnutriti on. Bariatric vitamin panel ordered today. Patient will be contacted to correct any vitamin deficienci es. Hyperlipidemia 05772650 E78.5 Hypothyroidism 41085652 E03.9 History of sleeve gastrectomy 6161029395 18512 Z90.3 Essential hypertension 68388358 I10 Iron defic iency anemia 47843416 D50.9 Heartburn 39241931 R12 GERD-patie nt was reassured. We discussed [...] her EGD from since the on a [place]. Possible EGD with Dr. Flores. 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 History of gastrectomy 840695507 Z90.3 Patient is status post bariatric surgery and at increased risk for vitamin deficienci es and malnutriti on. Bariatric vitamin panel ordered today. Patient will be contacted to correct any vitamin deficienci es. Essential hypertension 77458604 I10 Hyperlipidemia 09582874 E78.5 Hypothyroidism 73723096 E03.9 Iron defic iency anemia 23295624 D50.9 Intentiona l weight loss 420318761 R63.8 Heartburn 88430369 R12 GERD-patie nt was reassured. We discussed [...] her EGD from since the on a [place]. Possible EGD with Dr. Flores. Disorder o f function of stomach 991341972 K31.89 [id number] SHARONA Ruiz [facility] [address] [facility] [address] [place] [address] 03/26/2023 09:03:41 03/26/2023 10:01:27 Gastroesophageal reflux disease 125705215 K21.9 We discussed concerns of worsening gastroesop [...] prior to revisional surgery History of gastrectomy 131843739 Z90.3 patient is to continue healthy bariatric diet. Continue routine vitamin supplement ation. We will request may results to complete our chart. Repeat bariatric labs needed approximat sandra May 2023 Iron defic iency anemia 74608997 D50.9 adequately supplement ed. Normal labs January 2023 Vitamin D deficiency 347 35691 E55.9 adequately supplement ed. Normal labs January 2023 [id number] Brennen Flores DO [facility] [address] [facility] [address] [place] [address] 04/18/2023 07:32:42 04/18/2023 12:14:27 Morbid obesity 752634728 E66.01 Pre-surger y evaluation 783913181 Z01.818 Postoperative pain 82413 9007 G89.18 Essential hypertension 73801121 I10 Heartburn 32410613 R12 Continue current PPI therapy. History of sleeve gastrectomy 1456080189 39808 Z90.3 Hyperlipidemia 94686203 E78.5 Hypothyroidism 35977631 E03.9 Iron defic iency anemia 35387673 D50.9 [id number] Hilario Woods, DNP, PHLEBOTOMY SUPPORT TECH, EQUIPMENT RECORDS SUPERVISOR-C [facility] [address] [facility] [address] [place] [address] 05/08/2023 07:57:00 05/08/2023 09:41:43 History of bariatric surgical procedure 286683670 Z98.84 The patient is doing well. The [...] choose to have them drawn at another [facility] they are to make sure that the [...] plan and agree to comply. Essential hypertension 36082082 I10 History of sleeve gastrectomy 7489486599 30888 Z90.3 Hyperlipidemia 26805778 E78.5 Hypothyroidism 51577938 E03.9 Iron defic iency anemia 60042323 D50.9 Intentiona l weight loss 223906051 R63.8 Nausea 096727343 R11.0 [id number] Hilario Woods, DNP, PHLEBOTOMY SUPPORT TECH, EQUIPMENT RECORDS SUPERVISOR-C [facility] [address] [facility] [address] [facility] [place] [address] 06/04/2023 10:04:12 06/04/2023 10:37:37 History of bariatric surgical procedure 259763480 Z98.84 The patient is doing well. The [...] choose to have them drawn at another [facility] they are to make sure that the [...] agree to comply. Intentiona l weight loss 729345173 R63.8 History of gastrectomy 718961271 Z90.3 Advised qid intake 50% protein 5325-4382 calories/d y less than 100 carbs/dy Patient is status post bariatric surgery and at increased risk for vitamin deficienci es and malnutriti on. Bariatric vitamin panel ordered today. Patient will be contacted to correct any vitamin deficienci es. Essential hypertension 73112441 I10 Hyperlipidemia 25903472 E78.5 Hypothyroidism 51277087 E03.9 Iron defic iency anemia 14712074 D50.9 Morbid obesity 372830263 E66.01 [id number] Hilario Woods, DNP, PHLEBOTOMY SUPPORT TECH, EQUIPMENT RECORDS SUPERVISOR-C [facility] [address] [facility] [address] [facility] [place] [address] 09/12/2023 13:39:31 09/12/2023 14:11:00 History of bariatric surgical procedure 253472509 Z98.84 The patient is doing well. The [...] choose to have them drawn at another [facility] they are to make sure that the [...] agree to comply. Intentiona l weight loss 175127231 R63.8 History of gastrectomy 827528021 Z90.3 Advised qid intake 50% protein 5255-0193 calories/d y less than 100 carbs/dy Long [...] correct any vitamin deficienci es. Essential hypertension 96244977 I10 History of sleeve gastrectomy 9295144511 16340 Z90.3 Hyperlipidemia 71511480 E78.5 Hypothyroidism 69071870 E03.9 Iron defic iency anemia 39880642 D50.9 Morbid obesity 534280834 E66.01 [id number] Hilario Woods, DNP, PHLEBOTOMY SUPPORT TECH, EQUIPMENT RECORDS SUPERVISOR-C [facility] [address] [place] [address] 12/14/2023 08:59:51 12/14/2023 09:38:34 History of bariatric surgical procedure 143039976 Z98.84 The patient is doing well. The [...] choose to have them drawn at another [facility] they are to make sure that the [...] agree to comply. Intentiona l weight loss 569716690 R63.8 History of gastrectomy 969673295 Z90.3 Advised qid intake 50% protein 4046-0368 calories/d y less than 100 carbs/dyLo ng [...] correct any vitamin deficienci es. Essential hypertension 21296759 I10 Hyperlipidemia 80247438 E78.5 Hypothyroidism 05425852 E03.9 Iron defic iency anemia 50856698 D50.9 Morbid obesity 157773746 E66.01 Unintentio nal weight gain 2180592228 74758 R63.[id number], [place] [facility] [address] [facility] [address] [place] [address] 01/02/2024 11:58:38 01/02/2024 14:46:03 Morbid obesity 536842795 E66.01 BMI 36.7 Wt loss 9# Dietary ma [facility] surveillance 193261492 Z71.3 [id number] Hilario Woods, DNP, PHLEBOTOMY SUPPORT TECH, EQUIPMENT RECORDS SUPERVISOR-C [facility] [address] [facility] [address] [place] [place] [address] 03/31/2024 10:16:51 03/31/2024 11:18:28 History of bariatric surgical procedure 266133655 Z98.84 The patient is doing well. The [...] choose to have them drawn at another [facility] they are to make sure that the [...] agree to comply. Intentiona l weight loss 723404454 R63.8 History of gastrectomy 203206614 Z90.3 Advised qid intake 50% protein 1362-0440 calories/d y less than 100 carbs/dyLo ng [...] correct any vitamin deficienci es. Essential hypertension 91216518 I10 Hyperlipidemia 85472953 E78.5 Hypothyroidism 00794463 E03.9 Iron defic iency anemia 42679825 D50.9 Unintentio nal weight gain 8711189629 23428 R63.5 Morbid obesity 066575744 E66.01 [id number] Hilario Woods, DNP, PHLEBOTOMY SUPPORT TECH, EQUIPMENT RECORDS SUPERVISOR-C [facility] [address] [facility] [address] [place] [address] 04/14/2024 13:31:27 04/14/2024 15:48:01 History of bariatric surgical procedure 297793807 Z98.84 Intentiona l weight loss 259653101 R63.8 Essential hypertension 20451328 I10 Hyperlipidemia 20683491 E78.5 Hypothyroidism 97875021 E03.9 Iron defic iency anemia 99699863 D50.9 Vomiting 230520958 R11.1 0 Heartburn 94983059 R12 GERD-patie nt was reassured. We discussed [...] well as EGD with possible dilatation .. [id number] Hilario Woods, DNP, PHLEBOTOMY SUPPORT TECH, EQUIPMENT RECORDS SUPERVISOR-C [facility] [address] [place] [place] [address] 08/18/2024 11:29:14 08/18/2024 12:37:20 History of bariatric surgical procedure 208122803 Z98.84 Intentiona l weight loss 806955230 R63.8 History of gastrectomy 167528519 Z90.3 Advised qid intake 50% protein 6948-5423 calories/d y less than 100 carbs/dyLo ng [...] any vitamin deficienci es. At [facility] risk of nutritional deficit 915003580 Z91.89 Essential hypertension 58544538 I10 Hyperlipidemia 66691497 E78.5 Hypothyroidism 63886488 E03.9 Iron defic iency anemia 45428926 D50.9 Ulcer of anastomosis 447 607289 K26.9 told to notify if tablets are expensive Heartburn 62603122 R12 GERD-patie nt was reassured. We discussed [...] keep upcoming appt for UGI. Morbid obesity 746381716 E66.01 [id number] Hilario Woods, DNP, PHLEBOTOMY SUPPORT TECH, EQUIPMENT RECORDS SUPERVISOR-C [facility] [address] [facility] [address] [place] [place] [address] 11/17/2024 08:59:09 11/18/2024 10:46:44 History of bariatric surgical procedure 988508654 Z98.84 Intentiona l weight loss 957079958 R63.8 History of gastrectomy 590954672 Z90.3 Advised qid intake 50% protein 0996-9248 calories/d y less than 100 carbs/dyLo ng [...] any vitamin deficienci es. At [facility] risk of nutritional deficit 748127387 Z91.89 Essential hypertension 81851316 I10 Hyperlipidemia 51360152 E78.5 Hypothyroidism 80141235 E03.9 Iron defic iency anemia 86698509 D50.9 History of sleeve gastrectomy 2336199129 15460 Z90.3 Morbid obesity 692206599 E66.01 Unintentio nal weight gain 2780218979 26796 [address]63.[id number] [facility] [address] [facility] [address] [place] [address] 11/17/2024 16:09:54 11/17/2024 16:15:57 Dietary management surveillance 672776726 Z71.3 Health Concerns Section Related Observation LastModified by Organization Detai ls LastModified Time None Recorded Concern Status LastModified by Organization Details LastModified Time None Recorded Advance Directives Directive None Recorded Payers Insurance Date Sequence Insurance Name Policy Number Policy Rojas Covered Member ID Rojas Member ID Guarantor Name 10/17/2023 1 [facility] [place] CSKY Bushra Baldwin [place] [id number] Bushra Baldwin [place] 11/15/2024 1 [employer] - [place]AC[place] - HMO) [id number] Bushra Baldwin Tam[place] [id number] Bushra Baldwin [place] Notes Date Note Type Note Provider Name [...] = 1397 kilo calories Hilario Woods, DNP, PHLEBOTOMY SUPPORT TECH, EQUIPMENT RECORDS SUPERVISOR-C [address] [facility], [place], [address], [facility] - [facility] 03/31/2024 12:07:22 04/14/2024 text/html Patient presents [...] after Weight loss Surgery. Hilario Woods, LEVAR, PHLEBOTOMY SUPPORT TECH, EQUIPMENT RECORDS SUPERVISOR-C [address] [facility], [place], [address], [facility] 04/14/2024 15:27:35 08/18/2024 text/html Patient presents the [...] now set up fro next week at [facility]. She could not afford carafate suspension. She [...] Rate = 1425kilo calories Hilario Woods, DNP, PHLEBOTOMY SUPPORT TECH, EQUIPMENT RECORDS SUPERVISOR-C [address] [facility], [place], [address], [facility] & [place] 08/18/2024 13:02:08 11/17/2024 text/html RDN met w/ [...] heart tests done. KATHERINE CID, RD [address] [facility], [place], [address], [facility] & [place] 11/17/2024 16:15:46 11/17/2024 text/html Patient presents the [...] She has been seeing Dr. Fernandez in [place] at [facility]. She has been stress eating [...] scan performed roughly 2 weeks ago at [facility]. She tells me that a 10 mm [...] having an actual sleep study performed at [facility] [place] tomorrow night. Today's InBody reveals a skeletal muscle mass = 64.4 lb,body fat mass = 130.8 lb,BMI = 44.3Percent body fat = 52.4Basal Metabolic Rate = 1536 kilo calories Hilario Woods, DNP, PHLEBOTOMY SUPPORT TECH, EQUIPMENT RECORDS SUPERVISOR-C [address] [facility], [place], [address], [facility] [place] & [place] 11/17/2024 09:42:51 OBGyn Episode No OBEpisode recorded.
--- NOTE | 2025-02-02 14:15 | CT_ITS ---
FINAL REPORT TECHNIQUE: Axial images were obtained through the chest without contrast. This study was performed with techniques to keep radiation doses as low as reasonably achievable (ALARA). Individualized dose reduction techniques using automated exposure control or adjustment of mA and/or kV according to the patient's size were employed. CLINICAL HISTORY: 3-month follow-up right upper lobe lung nodule COMPARISON: 09/01/2024 FINDINGS: CT CHEST: No mediastinal or hilar adenopathy is noted. Mild coronary artery calcifications are present. The heart size is normal. There is no pericardial or pleural effusion. Limited images of the upper abdomen demonstrate postoperative changes of a gastric sleeve. There is a mass in the medial right middle lobe, which measured 10 mm on the prior CT of 09/01/2024, and on today's exam measures 1.5 x 1.0 cm in size, and is contacting the right heart border, best seen on image #107 of series 3. The previously noted faint lateral right upper lobe nodule is stable, present on image #90 of series 3. The 2 mm left lower lobe nodule is also stable, best seen on image #77 of series 3, stable. A third pleural-based right upper lobe nodule is best seen on image #4 of series 5, and measures 6 mm in size, stable. IMPRESSION: The medial noted on a prior CT of 09/01/2024 is significantly larger on today's examination, measuring 1.5 x 1.0 cm in size. This mass is contacting the right heart border. Recommend PET/CT for further evaluation if this has not already been performed. The other small 6 mm or less in size nodule seen on the prior exam are stable in appearance. Reviewed, Interpreted and Dictated by Rudy Wilson MD Transcribed by Isa Soria Authenticated and [facility]
[2025-02-02 16:30] VITALS: PULSE 59; PULSE 67
[2025-02-02] MEDS: ALBUTEROL 0.083% 2.5 MG/3 ML NEB IH (16:30)
== END 2025-02-02 23:59 | disposition home or self-care (01) ==
LOC: RAD 13:58
PROVIDERS: PCP Internal Medicine; Visit Provider Internal Medicine Pulmonary Disease
DX: R91.8 Other nonspecific abnormal finding of lung field (principal); R06.09 Other forms of dyspnea
CPT/HCPCS: 71250; 94060; 94618; 94640; 94726; 94729

== ENCOUNTER 2025-02-16 12:41 | Outpatient (CLI) | payer MEDICAID, SELFPAY ==
--- OUTSIDE RECORDS SUMMARY | 2025-02-16 12:43 | XMS_ITS | Data Portability ---
Author Organization [place] [facility] [place] [facility] AD[facility] Address [address] [place] [id number] Care Team Providers Care Manager Company Name Role Phone MARION LYLES Primary Care Provider [phone] Assessment Encounter Date Assessment Date Assessment LastModified by Organization Details LastModified Time 11/17/2024 11/17/2024 A total of 10 minutes was spent with the pt today. Recommendations: 1. Start tracking calories and protein with surespot jessica 2. Aim for 1200 kcal per day and 65+ grams of protein 3. Try making own smoothies/shakes with a machine joiner cementer, almond milk, fruit, and protein powder from the tub 4. Add in high protein snacks like cottage cheese dip, yogurt, turkey roll ups, cheese, nuts/seeds, etc. 5. Add in chair exercises 3 days/week 6. Schedule an appt with nurse psychologist at [facility] 7. F/U With RD As needed Pt doing well overall. Addressed concerns today. Pt was reassured at today's visit. Pt verbally agreed to recommendations and goals. Denied further questions/concerns . RDN will monitor weight loss, labs, meds, and lifestyle modifications. Will f/up as scheduled or PRN. [email or web address] Not available 11/17/2024 16:14:49 Plan of Treatment Reminders Order Date Submit Date Provider Last Modified By Organization Details Last Modified Time Details Appointments OV EST 20 2024 08:00A M Hilario Woods, LEVAR, CLINICAL DIRECTOR, DIRT BIKE RACER-C Not available Not available Not available OV EST 20 2024 09:20A M Hilario Woods DNP, CLINICAL DIRECTOR, [employer] BIKE RACER-C Not available Not available Not available Lab copper , serum or plasma 2024 025 NATHAN [facility], [address], [address], [place], [address], 02/16/2025 08:03:03 seleni um, quanti tative , blood 2024 025 NATHAN [facility], [address], [address], [place], [address], 02/16/2025 08:02:47 zinc, serum or plasma 2024 025 NATHAN [facility], [address], [address], [place], [address], 02/16/2025 08:03:04 folate , serum 2024 025 NATHAN [facility], [address], [address], [place], [address], 02/16/2025 08:03:03 vitami n E, serum 2024 025 NATHAN [facility], [address], [address], [place], [address], 02/16/2025 08:02:46 vitami n A (retin ol), serum 2024 025 NATHAN [facility], [address], [address], [place], [address], 02/16/2025 08:03:03 prealb umin, serum 2024 025 NATHAN [facility], [address], [address], [place], [address], 02/16/2025 08:03:02 thiami ne, QN, blood 2024 025 NATHAN [facility], [address], [address], [place], [address], 02/16/2025 08:03:03 methyl malona te, QN, serum or plasma 2024 025 NATHAN [facility], [address], [address], [place], [address], 02/16/2025 08:02:48 vitami n D, 25-hyd raul, total, serum 2024 025 NATHAN [facility], [address], [address], [place], [address], 02/16/2025 08:02:46 CBC w/ auto diff 2024 025 NATHAN [facility], [address], [address], [place], [address], 02/16/2025 08:03:02 CMP, serum or plasma 2024 025 NATHAN [facility], [address], [address], [place], [address], 02/16/2025 08:02:47 TSH + free T4, serum 2024 025 NATHAN [facility], [address], [address], [place], [address], 02/16/2025 08:02:48 HbA1c (hemog lobin A1c), blood 2024 025 NATHAN [facility], [address], [address], [place], [address], 02/16/2025 08:03:04 lipid panel, serum 2024 025 NATHAN [facility], [address], [address], [place], [address], 02/16/2025 08:02:46 iron + TIBC + ferrit in, serum 2024 025 NATHAN [facility], [address], [address], [place], [address], 02/16/2025 08:02:47 copper , serum or plasma 2024 025 [email or web address] s [facility], [address], [address], [place], [address], 11/24/2024 12:50:10 seleni um, quanti tative , blood 2024 025 ahaugrudgrave s [facility], [address], [address], [place], [address], 11/24/2024 12:50:11 zinc, serum or plasma 2024 025 [email or web address] s [facility], [address], [address], [place], [address], 11/24/2024 12:50:11 vitami n E, serum 2024 025 ahaugrudgrave s [facility], [address], [address], [place], [address], 11/24/2024 12:50:11 vitami n A (retin ol), serum 2024 025 ahaugrudgrave s [facility], [address], [address], [place], [address], 11/24/2024 12:50:11 prealb umin, serum 2024 025 ahaugrudgrave s [facility], [address], [address], [place], [address], 11/24/2024 12:50:11 thiami ne, QN, blood 2024 025 ahaugrudgrave s [facility], [address], [address], [place], [address], 11/24/2024 12:50:11 methyl malona te, QN, serum or plasma 2024 025 ahaugrudgrave s [facility], [address], [address], [place], [address], 11/24/2024 12:50:11 vitami n D, 25-hyd raul, total, serum 2024 025 ahaugrudgrave s [facility], [address], [address], [place], [address], 11/24/2024 12:50:11 CBC w/ auto diff 2024 025 ahaugrudgrave s [facility], [address], [address], [place], [address], 11/24/2024 12:50:11 CMP, serum or plasma 2024 025 ahaugrudgrave s [facility], [address], [address], [place], [address], 11/24/2024 12:50:11 lipid panel, serum 2024 025 ahaugrudgrave s [facility], [address], [address], [place], [address], 11/24/2024 12:50:12 HbA1c (hemog lobin A1c), blood 2024 025 ahaugrudgrave s [facility], [address], [address], [place], [address], 11/24/2024 12:50:11 TSH + free T4, serum 2024 025 ahaugrudgrave s [facility], [address], [address], [place], [address], 11/24/2024 12:50:12 iron + TIBC + ferrit in, serum 2024 025 [facility], [address], [address], [place], [address], 11/24/2024 12:50:11 folate , serum 2024 025 [facility], [address], [address], [place], [address], 11/24/2024 12:50:11 copper , serum or plasma 2023 024 NATHAN [facility], [address], [address], [place], [address], 08/25/2024 14:37:42 seleni um, quanti tative , blood 2023 024 NATHAN [facility], [address], [address], [place], [address], 08/25/2024 14:37:45 zinc, serum or plasma 2023 024 NATHAN [facility], [address], [address], [place], [address], 08/25/2024 14:37:43 vitami n E, serum 2023 024 NATHAN [facility], [address], [address], [place], [address], 08/25/2024 14:37:36 vitami n A (retin ol), serum 2023 024 NATHAN [facility], [address], [address], [place], [address], 08/25/2024 14:37:39 prealb umin, serum 2023 024 NATHAN [facility], [address], [address], [place], [address], 08/25/2024 14:37:44 thiami ne, QN, blood 2023 024 NATHAN [facility], [address], [address], [place], [address], 08/25/2024 14:37:40 methyl malona te, QN, serum or plasma 2023 024 NATHAN [facility], [address], [address], [place], [address], 08/25/2024 14:37:41 vitami n D, 25-hyd raul, total, serum 2023 024 NATHAN [facility], [address], [address], [place], [address], 08/25/2024 14:37:39 lipid panel, serum 2023 024 NATHAN [facility], [address], [address], [place], [address], 08/25/2024 14:37:35 CBC w/ auto diff 2023 024 NATHAN [facility], [address], [address], [place], [address], 08/25/2024 14:37:33 CMP, serum or plasma 2023 024 NATHAN [facility], [address], [address], [place], [address], 08/25/2024 14:37:34 HbA1c (hemog lobin A1c), blood 2023 024 NATHAN [facility], [address], [address], [place], [address], 08/25/2024 14:37:37 TSH + free T4, serum 2023 024 NATHAN [facility], [address], [address], [place], [address], 08/25/2024 14:37:32 iron + TIBC + ferrit in, serum 2023 024 NATHAN [facility], [address], [address], [place], [address], 08/25/2024 14:37:31 folate , serum 2023 024 NATHAN [facility], [address], [address], [place], [address], 08/25/2024 14:37:38 Referral None record ed. Procedures None record ed. Surgeries esopha gogast roduod enosco py (SURG) 2023 024 [email or web address] Terese Higuera MD, [address] [place] [address], [address], [place], [address], 05/26/2024 10:46:31 Imaging RF, upper gastro intest inal tract + small bowel, w/ contra st PO 2023 024 [email or web address] [facility] (Central[facility] Scheduling), [address] [place] [address], [place], [address], 06/04/2024 16:14:18 Medication Orders Carafa te 1 gram tablet 2023 025 [facility], [address], [id number], 02/16/2025 09:23:23 Proton ix 40 mg tablet ,delay ed releas e 2023 024 [facility], [address] [address] [place], [id number], 08/18/2024 12:11:12 omepra zole 20 mg capsul etita releas e 2023 024 [email or web address] [facility], [address] [place] [address] [place], [id number], 12/18/2024 11:02:39 promet hazine 12.5 mg rectal suppos itory 2023 025 NATHAN [facility], [facility] [address] Sarabjit, MAURISIO Olivera, [id number], 11/17/2024 09:17:43 Patient TargetsNo targets recorded. Patient InstructionsNo instructions recorded. Reason for Referral None Reported. Results Created Date Observation Date Name Description Value Unit Range Abnormal Flag Note LastModifiedBy Organization Detail LastModifiedTime 03/31/2004/01/2024 FE+TI BC+FE R iron bind.cap.(TI BC) 255 ug/dL 250-45 0 normal Not Available [facility] ([facility]) [address] [place], [address], 04/07/2024 12:36:52 03/31/20 24 04/01/2024 FE+TI BC+FE R UIBC 196 ug/dL 131-42 5 normal Not Available [facility] ([facility]) [address] [place], [address], 04/07/2024 12:36:52 03/31/20 24 04/01/2024 FE+TI BC+FE R iron 59 ug/dL 27-159 normal Not Available [facility] ([facility]) [address] [place], [address], 04/07/2024 12:36:52 03/31/20 24 04/01/2024 FE+TI BC+FE R iron saturation 23 % 15-55 normal Not Available [facility] ([facility]) [address] [facility], [place], [address], 04/07/2024 12:36:52 03/31/20 24 04/01/2024 FE+TI BC+FE R ferritin 360 NG/mL 15-150 above high normal Not Available [facility] ([facility]) [address] [place], [address], 04/07/2024 12:36:52 03/31/20 24 04/01/2024 TSH+F REE T4 TSH 2.540 uIU/m L 0.450- 4.500 normal Not Available [facility] ([facility]) [address] [place], [address], 04/07/2024 12:36:52 03/31/20 24 04/01/2024 TSH+F REE T4 T4,free(dire ct) 1.65 NG/dL 0.82-1 .77 normal Not Available [facility] ([facility]) [address] [place], [address], 04/07/2024 12:36:52 03/31/20 24 04/01/2024 CBC WITH DIFFE RENTI AL/PL ATELE T WBC 7.3 x10e3 /uL 3.4-10 .8 normal Not Available [facility] ([facility]) [address] [place], [address], 04/07/2024 12:36:53 03/31/20 24 04/01/2024 CBC WITH DIFFE RENTI AL/PL ATELE T RBC 4.61 x10e6 /uL 3.77-5 .28 normal Not Available [facility] ([facility]) [address] [place], [address], 04/07/2024 12:36:53 03/31/20 24 04/01/2024 CBC WITH DIFFE RENTI AL/PL ATELE T hemoglobin 13.7 g/dL 11.1-1 5.9 normal Not Available [facility] ([facility]) [address] [facility], [place], [address], 04/07/2024 12:36:53 03/31/20 24 04/01/2024 CBC WITH DIFFE RENTI AL/PL ATELE T hematocrit 41.8 % 34.0-4 6.6 normal Not Available [facility] ([facility]) [address] [facility], [place], [address], 04/07/2024 12:36:53 03/31/20 24 04/01/2024 CBC WITH DIFFE RENTI AL/PL ATELE T MCV 91 fL 79-97 normal Not Available [facility] ([facility]) [address] [facility], [place], [address], 04/07/2024 12:36:53 03/31/20 24 04/01/2024 CBC WITH DIFFE RENTI AL/PL ATELE T MCH 29.7 pg 26.6-3 3.0 normal Not Available [facility] ([facility]) [address] [place], [address], 04/07/2024 12:36:53 03/31/20 24 04/01/2024 CBC WITH DIFFE RENTI AL/PL ATELE T MCHC 32.8 g/dL 31.5-3 5.7 normal Not Available [facility] ([facility]) [address] [place], [address], 04/07/2024 12:36:53 03/31/20 24 04/01/2024 CBC WITH DIFFE RENTI AL/PL ATELE T RDW 12.6 % 11.7-1 5.4 Not Available [facility] ([facility]) [address] [place], [address], 04/07/2024 12:36:53 03/31/20 24 04/01/2024 CBC WITH DIFFE RENTI AL/PL ATELE T platelets 372 x10e3 /uL 150-45 0 normal Not Available [facility] ([facility]) [address] [facility], [place], [address], 04/07/2024 12:36:53 03/31/20 24 04/01/2024 CBC WITH DIFFE RENTI AL/PL ATELE T neutrophils 64 % not estab. normal Not Available [facility] ([facility]) [address] [facility], [place], [address], 04/07/2024 12:36:53 03/31/20 24 04/01/2024 CBC WITH DIFFE RENTI AL/PL ATELE T lymphs 24 % not estab. normal Not Available [facility] ([facility]) [address] [facility], [place], [address], 04/07/2024 12:36:53 03/31/20 24 04/01/2024 CBC WITH DIFFE RENTI AL/PL ATELE T monocytes 7 % not estab. normal Not Available [facility] ([facility]) [address] [facility], [place], [address], 04/07/2024 12:36:53 03/31/20 24 04/01/2024 CBC WITH DIFFE RENTI AL/PL ATELE T eos 4 % not estab. normal Not Available [facility] ([facility]) [address] [facility], [place], [address], 04/07/2024 12:36:53 03/31/20 24 04/01/2024 CBC WITH DIFFE RENTI AL/PL ATELE T basos 1 % not estab. normal Not Available [facility] ([facility]) [address] [facility], [place], [address], 04/07/2024 12:36:53 03/31/20 24 04/01/2024 CBC WITH DIFFE RENTI AL/PL ATELE T immature cells DIRT BIKE RACER Not Available [facility] ([facility]) [address] [facility], [place], [address], 04/07/2024 12:36:53 03/31/20 24 04/01/2024 CBC WITH DIFFE RENTI AL/PL ATELE T neutrophils (absolute) 4.6 x10e3 /uL 1.4-7. 0 normal Not Available [facility] ([facility]) [address] [facility], [place], [address], 04/07/2024 12:36:53 03/31/20 24 04/01/2024 CBC WITH DIFFE RENTI AL/PL ATELE T lymphs (absolute) 1.8 x10e3 /uL 0.7-3. 1 normal Not Available [facility] ([facility]) [address] [facility], [place], [address], 04/07/2024 12:36:53 03/31/20 24 04/01/2024 CBC WITH DIFFE RENTI AL/PL ATELE T monocytes(ab solute) 0.5 x10e3 /uL 0.1-0. 9 normal Not Available [facility] ([facility]) [address] [facility], [place], [address], 04/07/2024 12:36:53 03/31/20 24 04/01/2024 CBC WITH DIFFE RENTI AL/PL ATELE T eos (absolute) 0.3 x10e3 /uL 0.0-0. 4 normal Not Available [facility] ([facility]) [address] [place], [address], 04/07/2024 12:36:53 03/31/20 24 04/01/2024 CBC WITH DIFFE RENTI AL/PL ATELE T baso (absolute) 0.1 x10e3 /uL 0.0-0. 2 normal Not Available [facility] ([facility]) [address] [place], [address], 04/07/2024 12:36:53 03/31/20 24 04/01/2024 CBC WITH DIFFE RENTI AL/PL ATELE T immature granulocytes 0 % not estab. Not Available [facility] ([facility]) [address] [facility], [place], [address], 04/07/2024 12:36:53 03/31/20 24 04/01/2024 CBC WITH DIFFE RENTI AL/PL ATELE T immature grans (abs) 0.0 x10e3 /uL 0.0-0. 1 Not Available [facility] ([facility]) [address] [facility], [place], [address], 04/07/2024 12:36:53 03/31/20 24 04/01/2024 CBC WITH DIFFE RENTI AL/PL ATELE T NRBC DIRT BIKE RACER Not Available [facility] ([facility]) [address] [facility], [place], [address], 04/07/2024 12:36:53 03/31/20 24 04/01/2024 CBC WITH DIFFE RENTI AL/PL ATELE T hematology comments: DIRT BIKE RACER Not Available [facility] ([facility]) [address] [facility], [place], [address], 04/07/2024 12:36:53 03/31/20 24 04/01/2024 COMP. METAB OLIC PANEL (14) glucose 86 mg/dL 70-99 normal Not Available [facility] ([facility]) [address] [facility], [place], [address], 04/07/2024 12:36:53 03/31/20 24 04/01/2024 COMP. METAB OLIC PANEL (14) BUN 6 mg/dL 6-24 normal Not Available [facility] ([facility]) [address] [facility], [place], [address], 04/07/2024 12:36:53 03/31/20 24 04/01/2024 COMP. METAB OLIC PANEL (14) creatinine 0.73 mg/dL 0.57-1 .00 normal Not Available [facility] ([facility]) [address] [facility], [place], [address], 04/07/2024 12:36:53 03/31/20 24 04/01/2024 COMP. METAB OLIC PANEL (14) eGFR 95 mL/mi n/1.7 3 >59 normal Not Available [facility] ([facility]) [address] [facility], [place], [address], 04/07/2024 12:36:53 03/31/20 24 04/01/2024 COMP. METAB OLIC PANEL (14) BUN/creatini ne ratio 8 9-23 below low normal Not Available [facility] ([facility]) [address] [facility], [place], [address], 04/07/2024 12:36:53 03/31/20 24 04/01/2024 COMP. METAB OLIC PANEL (14) sodium 132 mmol/ L 134-14 4 below low normal Not Available [facility] ([facility]) [address] [facility], [place], [address], 04/07/2024 12:36:53 03/31/20 24 04/01/2024 COMP. METAB OLIC PANEL (14) potassium 4.6 mmol/ L 3.5-5. 2 normal Not Available [facility] ([facility]) [address] [facility], [place], [address], 04/07/2024 12:36:53 03/31/20 24 04/01/2024 COMP. METAB OLIC PANEL (14) chloride 93 mmol/ L 96-106 below low normal Not Available [facility] ([facility]) [address] [facility], [place], [address], 04/07/2024 12:36:53 03/31/20 24 04/01/2024 COMP. METAB OLIC PANEL (14) carbon dioxide, total 27 mmol/ L 20-29 normal Not Available [facility] ([facility]) [address] [facility], [place], [address], 04/07/2024 12:36:53 03/31/20 24 04/01/2024 COMP. METAB OLIC PANEL (14) calcium 9.1 mg/dL 8.7-10 .2 normal Not Available [facility] ([facility]) [address] [facility] [place], [address], 04/07/2024 12:36:53 03/31/20 24 04/01/2024 COMP. METAB OLIC PANEL (14) protein, total 6.1 g/dL 6.0-8. 5 normal Not Available [facility] ([facility]) [address] [facility] [place], [address], 04/07/2024 12:36:53 03/31/20 24 04/01/2024 COMP. METAB OLIC PANEL (14) albumin 4.0 g/dL 3.8-4. 9 normal Not Available [facility] ([facility]) [address] [facility] [place], [address], 04/07/2024 12:36:53 03/31/20 24 04/01/2024 COMP. METAB OLIC PANEL (14) globulin, total 2.1 g/dL 1.5-4. 5 Not Available [facility] ([facility]) [address] [place], [address], 04/07/2024 12:36:53 03/31/20 24 04/01/2024 COMP. METAB OLIC PANEL (14) bilirubin, total 0.4 mg/dL 0.0-1. 2 normal Not Available [facility] ([facility]) [address] [place], [address], 04/07/2024 12:36:53 03/31/20 24 04/01/2024 COMP. METAB OLIC PANEL (14) alkaline phosphatase 137 IU/L 44-121 above high normal Not Available [facility] ([facility]) [address] [facility] [place], [address], 04/07/2024 12:36:53 03/31/20 24 04/01/2024 COMP. METAB OLIC PANEL (14) AST (SGOT) 15 IU/L 0-40 normal Not Available [facility] ([facility]) [address] [facility] [place], [address], 04/07/2024 12:36:53 03/31/20 24 04/01/2024 COMP. METAB OLIC PANEL (14) ALT (SGPT) 16 IU/L 0-32 normal Not Available [facility] ([facility]) [address] [facility] [place], [address], 04/07/2024 12:36:53 03/31/20 24 04/01/2024 LIPID PANEL cholesterol, total 190 mg/dL 100-19 9 normal Not Available [facility] ([facility]) [address] [facility] [place], [address], 04/07/2024 12:36:54 03/31/20 24 04/01/2024 LIPID PANEL triglyceride s 78 mg/dL 0-149 normal Not Available [facility] ([facility]) [address] [facility] [place], [address], 04/07/2024 12:36:54 03/31/20 24 04/01/2024 LIPID PANEL HDL cholesterol 78 mg/dL >39 normal Not Available [facility] ([facility]) [address] [facility] [place], [address], 04/07/2024 12:36:54 03/31/20 24 04/01/2024 LIPID PANEL VLDL cholesterol sharon 14 mg/dL 5-40 Not Available [facility] ([facility]) [address] [facility] [place], [address], 04/07/2024 12:36:54 03/31/20 24 04/01/2024 LIPID PANEL LDL chol calc ([facility]) 98 mg/dL 0-99 Not Available [facility] ([facility]) [address] [facility] [place], [address], 04/07/2024 12:36:54 03/31/20 24 04/01/2024 LIPID PANEL LDL calc comment: DIRT BIKE RACER Not Available [facility] ([facility]) [address] [facility], [place], [address], 04/07/2024 12:36:54 03/31/20 24 04/03/2024 VITAM IN E vitamin E(alpha tocopherol) 10.8 mg/L 7.0-25 .1 Not Available [facility] ([facility]) [address] [facility], [place], [address], 04/07/2024 12:36:54 03/31/20 24 04/03/2024 VITAM IN [...] in E defic ient. Not Available [facility] ([facility]) [address] [facility], [place], [address], 04/07/2024 12:36:54 03/31/20 24 04/01/2024 HEMOG LOBIN A1C hemoglobin A1C 5.3 % 4.8-5. 6 normal Predi abete s: 5.7 - 6.4 Diabe zoila: >6.4 Glyce carol contr ol for adult s with diabe zoila: <7.0 Not Available [facility] ([facility]) [address] [facility], [place], [address], 04/07/2024 12:36:55 03/31/2004/01/2024 FOLAT E (FOLI C ACID) , SERUM folate (folic acid), serum 13.3 NG/mL >3.0 normal A serum folat e mikaela ntrat ion of less than 3.1 ng/mL is consi dered to repre sent clini sharon defic iency . Not Available [facility] ([facility]) [address] [facility], [place], [address], 04/07/2024 12:36:55 03/31/20 24 04/03/2024 VITAM IN [...] sandra defic ient. This test was devel zelda and its perfo rmanc e anny cteri stics deter mined by [facility]. It has not been clear ed or appro sakina by the Food and Drug Admin istra tion. Not Available [facility] ([facility]) [address] [facility], [place], [address], 04/07/2024 12:36:56 03/31/20 24 04/01/2024 VITAM IN [...] IOM (Inst itute of Medic ine). 2010. Dieta ry refer ence intak es for calci um and D. Karis bunch [place]: The Natio nal Ac[employer] [facility] Press . 2. Dipak mejia MF, Henry ey [place], Che off-F errar i FARRELL, et al. Evalu ation , treat ment, and preve ntion of vitam in D defic iency : an Endoc rine Socie ty clini sharon pract ice guide line. JCEM. 2010; 96(7) :1911 -30. Not Available [facility] ([facility]) [address] [place], [address], 04/07/2024 12:36:56 03/31/20 24 04/02/2024 VITAM IN B1 (THIA MINE) , BLOOD vit. B1, whole blood 128.8 nmol/ L 66.5-2 00.0 Not Available [facility] ([facility]) [address] [place], [address], 04/07/2024 12:36:57 03/31/20 24 04/07/2024 METHY LMALO INDIGO ACID, SERUM methylmaloni c acid, serum 153 nmol/ L 0-378 Not Available [facility] ([facility]) [address] [facility] [address], [place], [address], 04/07/2024 12:36:57 03/31/20 24 04/02/2024 COPPE R, SERUM OR PLASM A copper, serum or plasma 117 ug/dL 80-158 Detec tion Limit = 5 Not Available [facility] ([facility]) [address] [place], [address], 04/07/2024 12:36:58 03/31/20 24 04/02/2024 ZINC, PLASM A OR SERUM zinc, plasma or serum 46 ug/dL 44-115 normal Detec tion Limit = 5 Not Available [facility] ([facility]) [address] [place], [address], 04/07/2024 12:36:58 03/31/20 24 04/01/2024 PREAL BUMIN prealbumin 18 mg/dL 10-36 Not Available [facility] Lab) [address] [place], [address], 04/07/2024 12:36:59 03/31/20 24 04/04/2024 SELEN IUM, BLOOD selenium, blood 166 ug/L 100-34 0 Detec tion Limit = 10 Not Available [facility] ([facility]) [address] [place], [address], 04/07/2024 12:36:59 08/18/20 24 08/19/2024 FE+TI BC+FE R iron bind.cap.(TI BC) 307 ug/dL 250-45 0 normal Not Available [facility] ([facility]) [address] [place], [address], 08/25/2024 14:37:31 08/18/20 24 08/19/2024 FE+TI BC+FE R UIBC 208 ug/dL 131-42 5 normal Not Available [facility] ([facility]) [address] [place], [address], 08/25/2024 14:37:31 08/18/20 24 08/19/2024 FE+TI BC+FE R iron 99 ug/dL 27-159 normal Not Available [facility] ([facility]) [address] [place], [address], 08/25/2024 14:37:31 08/18/20 24 08/19/2024 FE+TI BC+FE R iron saturation 32 % 15-55 normal Not Available [facility] ([facility]) [address] [place], [address], 08/25/2024 14:37:31 08/18/20 24 08/19/2024 FE+TI BC+FE R ferritin 421 NG/mL 15-150 above high normal Not Available [facility] ([facility]) [address] [place], [address], 08/25/2024 14:37:31 08/18/20 24 08/19/2024 TSH+F REE T4 TSH 1.170 uIU/m L 0.450- 4.500 normal Not Available [facility] ([facility]) [address] [place], [address], 08/25/2024 14:37:32 08/18/20 24 08/19/2024 TSH+F REE T4 T4,free(dire ct) 1.65 NG/dL 0.82-1 .77 normal Not Available [facility] ([facility]) [address] [place], [address], 08/25/2024 14:37:32 08/18/20 24 08/19/2024 CBC WITH DIFFE RENTI AL/PL ATELE T WBC 6.4 x10e3 /uL 3.4-10 .8 normal Not Available [facility] ([facility]) [address] [place], [address], 08/25/2024 14:37:32 08/18/20 24 08/19/2024 CBC WITH DIFFE RENTI AL/PL ATELE T RBC 4.49 x10e6 /uL 3.77-5 .28 normal Not Available [facility] ([facility]) [address] [place], [address], 08/25/2024 14:37:32 08/18/20 24 08/19/2024 CBC WITH DIFFE RENTI AL/PL ATELE T hemoglobin 13.4 g/dL 11.1-1 5.9 normal Not Available [facility] ([facility]) [address] [place], [address], 08/25/2024 14:37:32 08/18/20 24 08/19/2024 CBC WITH DIFFE RENTI AL/PL ATELE T hematocrit 40.9 % 34.0-4 6.6 normal Not Available [facility] ([facility]) [address] [place], [address], 08/25/2024 14:37:32 08/18/20 24 08/19/2024 CBC WITH DIFFE RENTI AL/PL ATELE T MCV 91 fL 79-97 normal Not Available [facility] ([facility]) [address] [place], [address], 08/25/2024 14:37:32 08/18/20 24 08/19/2024 CBC WITH DIFFE RENTI AL/PL ATELE T MCH 29.8 pg 26.6-3 3.0 normal Not Available [facility] ([facility]) [address] [facility], [place], [address], 08/25/2024 14:37:32 08/18/20 24 08/19/2024 CBC WITH DIFFE RENTI AL/PL ATELE T MCHC 32.8 g/dL 31.5-3 5.7 normal Not Available [facility] ([facility]) [address] [place], [address], 08/25/2024 14:37:32 08/18/20 24 08/19/2024 CBC WITH DIFFE RENTI AL/PL ATELE T RDW 12.5 % 11.7-1 5.4 Not Available [facility] ([facility]) [address] [facility], [place], [address], 08/25/2024 14:37:32 08/18/20 24 08/19/2024 CBC WITH DIFFE RENTI AL/PL ATELE T platelets 400 x10e3 /uL 150-45 0 normal Not Available [facility] ([facility]) [address] [place], [address], 08/25/2024 14:37:32 08/18/20 24 08/19/2024 CBC WITH DIFFE RENTI AL/PL ATELE T neutrophils 52 % not estab. normal Not Available [facility] ([facility]) [address] [place], [address], 08/25/2024 14:37:32 08/18/20 24 08/19/2024 CBC WITH DIFFE RENTI AL/PL ATELE T lymphs 34 % not estab. normal Not Available [facility] ([facility]) [address] [place], [address], 08/25/2024 14:37:32 08/18/20 24 08/19/2024 CBC WITH DIFFE RENTI AL/PL ATELE T monocytes 9 % not estab. normal Not Available [facility] ([facility]) [address] [facility], [place], [address], 08/25/2024 14:37:32 08/18/20 24 08/19/2024 CBC WITH DIFFE RENTI AL/PL ATELE T eos 4 % not estab. normal Not Available [facility] ([facility]) [address] [facility], [place], [address], 08/25/2024 14:37:32 08/18/20 24 08/19/2024 CBC WITH DIFFE RENTI AL/PL ATELE T basos 1 % not estab. normal Not Available [facility] ([facility]) [address] [facility], [place], [address], 08/25/2024 14:37:32 08/18/20 24 08/19/2024 CBC WITH DIFFE RENTI AL/PL ATELE T immature cells DIRT BIKE RACER Not Available [facility] ([facility]) [address] [place], [address], 08/25/2024 14:37:32 08/18/20 24 08/19/2024 CBC WITH DIFFE RENTI AL/PL ATELE T neutrophils (absolute) 3.4 x10e3 /uL 1.4-7. 0 normal Not Available [facility] ([facility]) [address] [place], [address], 08/25/2024 14:37:32 08/18/20 24 08/19/2024 CBC WITH DIFFE RENTI AL/PL ATELE T lymphs (absolute) 2.2 x10e3 /uL 0.7-3. 1 normal Not Available [facility] ([facility]) [address] [place], [address], 08/25/2024 14:37:32 08/18/20 24 08/19/2024 CBC WITH DIFFE RENTI AL/PL ATELE T monocytes(ab solute) 0.6 x10e3 /uL 0.1-0. 9 normal Not Available [facility] ([facility]) [address] [facility], [place], [address], 08/25/2024 14:37:32 08/18/20 24 08/19/2024 CBC WITH DIFFE RENTI AL/PL ATELE T eos (absolute) 0.3 x10e3 /uL 0.0-0. 4 normal Not Available [facility] ([facility]) [address] [facility], [place], [address], 08/25/2024 14:37:32 08/18/20 24 08/19/2024 CBC WITH DIFFE RENTI AL/PL ATELE T baso (absolute) 0.1 x10e3 /uL 0.0-0. 2 normal Not Available [facility] ([facility]) [address] [facility], [place], [address], 08/25/2024 14:37:32 08/18/20 24 08/19/2024 CBC WITH DIFFE RENTI AL/PL ATELE T immature granulocytes 0 % not estab. Not Available [facility] ([facility]) [address] [facility], [place], [address], 08/25/2024 14:37:32 08/18/20 24 08/19/2024 CBC WITH DIFFE RENTI AL/PL ATELE T immature grans (abs) 0.0 x10e3 /uL 0.0-0. 1 Not Available [facility] ([facility]) [address] [place], [address], 08/25/2024 14:37:32 08/18/20 24 08/19/2024 CBC WITH DIFFE RENTI AL/PL ATELE T NRBC DIRT BIKE RACER Not Available [facility] ([facility]) [address] [place], [address], 08/25/2024 14:37:32 08/18/20 24 08/19/2024 CBC WITH DIFFE MARIBETHTI AL/PL SUZYLE T hematology comments: DIRT BIKE RACER Not Available [facility] ([facility]) [address] [facility], [place], [address], 08/25/2024 14:37:32 08/18/20 24 08/19/2024 COMP. METAB OLIC PANEL (14) glucose 56 mg/dL 70-99 below low normal Not Available [facility] ([facility]) [address] [facility], [place], [address], 08/25/2024 14:37:34 08/18/20 24 08/19/2024 COMP. METAB OLIC PANEL (14) BUN 6 mg/dL 6-24 normal Not Available [facility] ([facility]) [address] [facility], [place], [address], 08/25/2024 14:37:34 08/18/20 24 08/19/2024 COMP. METAB OLIC PANEL (14) creatinine 0.78 mg/dL 0.57-1 .00 normal Not Available [facility] ([facility]) [address] [facility], [place], [address], 08/25/2024 14:37:34 08/18/20 24 08/19/2024 COMP. METAB OLIC PANEL (14) eGFR 88 mL/mi n/1.7 3 >59 normal Not Available [facility] ([facility]) [address] [facility], [place], [address], 08/25/2024 14:37:34 08/18/20 24 08/19/2024 COMP. METAB OLIC PANEL (14) BUN/creatini ne ratio 8 9-23 below low normal Not Available [facility] ([facility]) [address] [facility], [place], [address], 08/25/2024 14:37:34 08/18/20 24 08/19/2024 COMP. METAB OLIC PANEL (14) sodium 129 mmol/ L 134-14 4 below low normal Not Available [facility] ([facility]) [address] [facility] [place], [address], 08/25/2024 14:37:34 08/18/20 24 08/19/2024 COMP. METAB OLIC PANEL (14) potassium 4.8 mmol/ L 3.5-5. 2 normal Not Available [facility] ([facility]) [address] [facility] [place], [address], 08/25/2024 14:37:34 08/18/20 24 08/19/2024 COMP. METAB OLIC PANEL (14) chloride 90 mmol/ L 96-106 below low normal Not Available [facility] ([facility]) [address] [facility] [place], [address], 08/25/2024 14:37:34 08/18/20 24 08/19/2024 COMP. METAB OLIC PANEL (14) carbon dioxide, total 21 mmol/ L 20-29 normal Not Available [facility] ([facility]) [address] [facility] [place], [address], 08/25/2024 14:37:34 08/18/20 24 08/19/2024 COMP. METAB OLIC PANEL (14) calcium 8.9 mg/dL 8.7-10 .2 normal Not Available [facility] ([facility]) [address] [facility] [place], [address], 08/25/2024 14:37:34 08/18/20 24 08/19/2024 COMP. METAB OLIC PANEL (14) protein, total 6.3 g/dL 6.0-8. 5 normal Not Available [facility] ([facility]) [address] [facility] [place], [address], 08/25/2024 14:37:34 08/18/20 24 08/19/2024 COMP. METAB OLIC PANEL (14) albumin 3.9 g/dL 3.8-4. 9 normal Not Available [facility] ([facility]) [address] [facility] [place], [address], 08/25/2024 14:37:34 08/18/20 24 08/19/2024 COMP. METAB OLIC PANEL (14) globulin, total 2.4 g/dL 1.5-4. 5 Not Available [facility] ([facility]) [address] [facility] [place], [address], 08/25/2024 14:37:34 08/18/20 24 08/19/2024 COMP. METAB OLIC PANEL (14) bilirubin, total 0.3 mg/dL 0.0-1. 2 normal Not Available [facility] ([facility]) [address] [facility] [place], [address], 08/25/2024 14:37:34 08/18/20 24 08/19/2024 COMP. METAB OLIC PANEL (14) alkaline phosphatase 152 IU/L 44-121 above high normal Not Available [facility] ([facility]) [address] [facility] [place], [address], 08/25/2024 14:37:34 08/18/20 24 08/19/2024 COMP. METAB OLIC PANEL (14) AST (SGOT) 21 IU/L 0-40 normal Not Available [facility] ([facility]) [address] [facility] [place], [address], 08/25/2024 14:37:34 08/18/20 24 08/19/2024 COMP. METAB OLIC PANEL (14) ALT (SGPT) 20 IU/L 0-32 normal Not Available [facility] ([facility]) [address] [facility] [place], [address], 08/25/2024 14:37:34 08/18/20 24 08/19/2024 LIPID PANEL cholesterol, total 175 mg/dL 100-19 9 normal Not Available [facility] ([facility]) [address] [facility], [place], [address], 08/25/2024 14:37:35 08/18/20 24 08/19/2024 LIPID PANEL triglyceride s 99 mg/dL 0-149 normal Not Available [facility] ([facility]) [address] [facility], [place], [address], 08/25/2024 14:37:35 08/18/20 24 08/19/2024 LIPID PANEL HDL cholesterol 90 mg/dL >39 normal Not Available [facility] ([facility]) [address] [facility] [place], [address], 08/25/2024 14:37:35 08/18/20 24 08/19/2024 LIPID PANEL VLDL cholesterol sharon 17 mg/dL 5-40 Not Available [facility] ([facility]) [address] [facility] [place], [address], 08/25/2024 14:37:35 08/18/20 24 08/19/2024 LIPID PANEL LDL chol calc ([facility]) 68 mg/dL 0-99 Not Available [facility] ([facility]) [address] [facility] [place], [address], 08/25/2024 14:37:35 08/18/20 24 08/19/2024 LIPID PANEL LDL calc comment: DIRT BIKE RACER Not Available [facility] ([facility]) [address] [facility], [place], [address], 08/25/2024 14:37:35 08/18/20 24 08/24/2024 VITAM IN E vitamin E(alpha tocopherol) 9.3 mg/L 7.0-25 .1 Not Available [facility] ([facility]) [address] [facility] [place], [address], 08/25/2024 14:37:36 08/18/20 24 08/24/2024 VITAM IN [...] in E defic ient. Not Available [facility] ([facility]) [address] [facility], [place], [address], 08/25/2024 14:37:36 08/18/20 24 08/19/2024 HEMOG LOBIN A1C hemoglobin A1C 5.8 % 4.8-5. 6 above high normal Predi abete s: 5.7 - 6.4 Diabe zoila: >6.4 Glyce carol contr ol for adult s with diabe zoila: <7.0 Not Available [facility] ([facility]) [address] [facility], [place], [address], 08/25/2024 14:37:37 08/18/20 24 08/19/2024 FOLAT E (FOLI C ACID) , SERUM folate (folic acid), serum 13.4 NG/mL >3.0 normal A serum folat e mikaela ntrat ion of less than 3.1 ng/mL is consi dered to repre sent clini sharon defic iency . Not Available [facility] ([facility]) [address] [facility], [place], [address], 08/25/2024 14:37:38 08/18/20 24 08/24/2024 VITAM IN [...] than 10 ug/dL are consi dered sever snadra defic ient. This test was devel oped and its perfo rmanc e anny cteri stics deter mined by [facility]. It has not been clear ed or appro sakina by the Food and Drug Admin istra tion. Not Available [facility] ([facility]) [address] [facility], [place], [address], 08/25/2024 14:37:38 08/18/20 24 08/19/2024 VITAM IN [...] IOM (Inst itute of Medic ine). 2010. Dieta ry refer ence lillie es for calci um and D. Krais bunch [place]: The [facility] Press . 2. Dipak mejia MF, [employer] waller [place], Che off-F errar i FARRELL, et al. Evalu ation , treat ment, and preve ntion of vitam in D defic iency : an Endoc rine Socie ty clini sharon pract ice guide line. JCEM. 2010; 96(7) :1911 -30. Not Available [facility] ([facility]) [address] [facility], [place], [address], 08/25/2024 14:37:39 08/18/20 24 08/25/2024 VITAM IN B1 (THIA MINE) , BLOOD vit. B1, whole blood 121.7 nmol/ L 66.5-2 00.0 Not Available [facility] ([facility]) [address] [facility], [place], [address], 08/25/2024 14:37:40 08/18/20 24 08/21/2024 METHY LMALO INDIGO ACID, SERUM methylmaloni c acid, serum 130 nmol/ L 0-378 Not Available [facility] ([facility]) [address] [place], [address], 08/25/2024 14:37:41 08/18/20 24 08/19/2024 COPPE R, SERUM OR PLASM A copper, serum or plasma 132 ug/dL 80-158 Detec tion Limit = 5 Not Available [facility] ([facility]) [address] [place], [address], 08/25/2024 14:37:42 08/18/20 24 08/19/2024 ZINC, PLASM A OR SERUM zinc, plasma or serum 52 ug/dL 44-115 normal Detec tion Limit = 5 Not Available [facility] ([facility]) [address] [place], [address], 08/25/2024 14:37:43 08/18/20 24 08/19/2024 PREAL BUMIN prealbumin 19 mg/dL 10-36 Not Available [facility] ([facility]) [address] [place], [address], 08/25/2024 14:37:44 08/18/20 24 08/22/2024 SELEN IUM, BLOOD selenium, blood 116 ug/L 100-34 0 Detec tion Limit = 10 Not Available [facility] ([facility]) [address] [place], [address], 08/25/2024 14:37:45 11/18/19 25 11/18/2024 FE+TI BC+FE R iron bind.cap.(TI BC) 251 ug/dL 250-45 0 normal Not Available [facility] ([facility]) [address] [place], [address], 11/28/2024 18:38:00 11/18/19 25 11/18/2024 FE+TI BC+FE R UIBC 188 ug/dL 131-42 5 normal Not Available [facility] ([facility]) [address] [place], [address], 11/28/2024 18:38:00 11/18/19 25 11/18/2024 FE+TI BC+FE R iron 63 ug/dL 27-159 normal Not Available [facility] ([facility]) [address] [facility], [place], [address], 11/28/2024 18:38:00 11/18/19 25 11/18/2024 FE+TI BC+FE R iron saturation 25 % 15-55 normal Not Available [facility] ([facility]) [address] [facility], [place], [address], 11/28/2024 18:38:00 11/18/19 25 11/18/2024 FE+TI BC+FE R ferritin 271 NG/mL 15-150 above high normal Not Available [facility] ([facility]) [address] [place], [address], 11/28/2024 18:38:00 11/18/19 25 11/18/2024 TSH+F REE T4 TSH 28.400 uIU/m L 0.450- 4.500 above high normal Not Available [facility] ([facility]) [address] [place], [address], 11/28/2024 18:38:01 11/18/19 25 11/18/2024 TSH+F REE T4 T4,free(dire ct) 0.70 NG/dL 0.82-1 .77 below low normal Not Available [facility] ([facility]) [address] [place], [address], 11/28/2024 18:38:01 11/18/19 25 11/18/2024 CBC WITH DIFFE RENTI AL/PL ATELE T WBC 6.4 x10e3 /uL 3.4-10 .8 normal Not Available [facility] ([facility]) [address] [place], [address], 11/28/2024 18:38:02 11/18/19 25 11/18/2024 CBC WITH DIFFE RENTI AL/PL ATELE T RBC 4.36 x10e6 /uL 3.77-5 .28 normal Not Available [facility] ([facility]) [address] [place], [address], 11/28/2024 18:38:02 11/18/19 25 11/18/2024 CBC WITH DIFFE RENTI AL/PL ATELE T hemoglobin 13.0 g/dL 11.1-1 5.9 normal Not Available [facility] ([facility]) [address] [place], [address], 11/28/2024 18:38:02 11/18/19 25 11/18/2024 CBC WITH DIFFE RENTI AL/PL ATELE T hematocrit 39.6 % 34.0-4 6.6 normal Not Available [facility] ([facility]) [address] [place], [address], 11/28/2024 18:38:02 11/18/19 25 11/18/2024 CBC WITH DIFFE RENTI AL/PL ATELE T MCV 91 fL 79-97 normal Not Available [facility] ([facility]) [address] [place], [address], 11/28/2024 18:38:02 11/18/19 25 11/18/2024 CBC WITH DIFFE RENTI AL/PL ATELE T MCH 29.8 pg 26.6-3 3.0 normal Not Available [facility] ([facility]) [address] [place], [address], 11/28/2024 18:38:02 11/18/19 25 11/18/2024 CBC WITH DIFFE RENTI AL/PL ATELE T MCHC 32.8 g/dL 31.5-3 5.7 normal Not Available [facility] ([facility]) [address] [place], [address], 11/28/2024 18:38:02 11/18/19 25 11/18/2024 CBC WITH DIFFE RENTI AL/PL ATELE T RDW 12.5 % 11.7-1 5.4 Not Available [facility] ([facility]) [address] [facility], [place], [address], 11/28/2024 18:38:02 11/18/19 25 11/18/2024 CBC WITH DIFFE RENTI AL/PL ATELE T platelets 312 x10e3 /uL 150-45 0 normal Not Available [facility] ([facility]) [address] [facility], [place], [address], 11/28/2024 18:38:02 11/18/19 25 11/18/2024 CBC WITH DIFFE RENTI AL/PL ATELE T neutrophils 66 % not estab. normal Not Available [facility] ([facility]) [address] [facility], [place], [address], 11/28/2024 18:38:02 11/18/19 25 11/18/2024 CBC WITH DIFFE RENTI AL/PL ATELE T lymphs 23 % not estab. normal Not Available [facility] ([facility]) [address] [facility], [place], [address], 11/28/2024 18:38:02 11/18/19 25 11/18/2024 CBC WITH DIFFE RENTI AL/PL ATELE T monocytes 7 % not estab. normal Not Available [facility] ([facility]) [address] [facility], [place], [address], 11/28/2024 18:38:02 11/18/19 25 11/18/2024 CBC WITH DIFFE RENTI AL/PL ATELE T eos 3 % not estab. normal Not Available [facility] ([facility]) [address] [facility], [place], [address], 11/28/2024 18:38:02 11/18/19 25 11/18/2024 CBC WITH DIFFE RENTI AL/PL ATELE T basos 1 % not estab. normal Not Available [facility] ([facility]) [address] [place], [address], 11/28/2024 18:38:02 11/18/19 25 11/18/2024 CBC WITH DIFFE RENTI AL/PL ATELE T immature cells DIRT BIKE RACER Not Available [facility] ([facility]) [address] [place], [address], 11/28/2024 18:38:02 11/18/19 25 11/18/2024 CBC WITH DIFFE RENTI AL/PL ATELE T neutrophils (absolute) 4.2 x10e3 /uL 1.4-7. 0 normal Not Available [facility] ([facility]) [address] [place], [address], 11/28/2024 18:38:02 11/18/19 25 11/18/2024 CBC WITH DIFFE RENTI AL/PL ATELE T lymphs (absolute) 1.5 x10e3 /uL 0.7-3. 1 normal Not Available [facility] ([facility]) [address] [place], [address], 11/28/2024 18:38:02 11/18/19 25 11/18/2024 CBC WITH DIFFE RENTI AL/PL ATELE T monocytes(ab solute) 0.5 x10e3 /uL 0.1-0. 9 normal Not Available [facility] ([facility]) [address] [place], [address], 11/28/2024 18:38:02 11/18/19 25 11/18/2024 CBC WITH DIFFE RENTI AL/PL ATELE T eos (absolute) 0.2 x10e3 /uL 0.0-0. 4 normal Not Available [facility] ([facility]) [address] [place], [address], 11/28/2024 18:38:02 11/18/19 25 11/18/2024 CBC WITH DIFFE RENTI AL/PL ATELE T baso (absolute) 0.1 x10e3 /uL 0.0-0. 2 normal Not Available [facility] ([facility]) [address] [facility], [place], [address], 11/28/2024 18:38:02 11/18/19 25 11/18/2024 CBC WITH DIFFE RENTI AL/PL ATELE T immature granulocytes 0 % not estab. Not Available [facility] ([facility]) [address] [facility], [place], [address], 11/28/2024 18:38:02 11/18/19 25 11/18/2024 CBC WITH DIFFE RENTI AL/PL ATELE T immature grans (abs) 0.0 x10e3 /uL 0.0-0. 1 Not Available [facility] ([facility]) [address] [facility], [place], [address], 11/28/2024 18:38:02 11/18/19 25 11/18/2024 CBC WITH DIFFE RENTI AL/PL ATELE T NRBC DIRT BIKE RACER Not Available [facility] ([facility]) [address] [facility], [place], [address], 11/28/2024 18:38:02 11/18/19 25 11/18/2024 CBC WITH DIFFE RENTI AL/PL ATELE T hematology comments: DIRT BIKE RACER Not Available [facility] ([facility]) [address] [place], [address], 11/28/2024 18:38:02 11/18/19 25 11/18/2024 COMP. METAB OLIC PANEL (14) glucose 78 mg/dL 70-99 normal Not Available [facility] ([facility]) [address] [place], [address], 11/28/2024 18:38:03 11/18/19 25 11/18/2024 COMP. METAB OLIC PANEL (14) BUN 7 mg/dL 6-24 normal Not Available [facility] ([facility]) [address] [facility] [place], [address], 11/28/2024 18:38:03 11/18/19 25 11/18/2024 COMP. METAB OLIC PANEL (14) creatinine 0.93 mg/dL 0.57-1 .00 normal Not Available [facility] ([facility]) [address] [facility] [place], [address], 11/28/2024 18:38:03 11/18/19 25 11/18/2024 COMP. METAB OLIC PANEL (14) eGFR 71 mL/mi n/1.7 3 >59 normal Not Available [facility] ([facility]) [address] [facility] [place], [address], 11/28/2024 18:38:03 11/18/19 25 11/18/2024 COMP. METAB OLIC PANEL (14) BUN/creatini ne ratio 8 9-23 below low normal Not Available [facility] ([facility]) [address] [facility] [place], [address], 11/28/2024 18:38:03 11/18/19 25 11/18/2024 COMP. METAB OLIC PANEL (14) sodium 138 mmol/ L 134-14 4 normal Not Available [facility] ([facility]) [address] [facility] [place], [address], 11/28/2024 18:38:03 11/18/19 25 11/18/2024 COMP. METAB OLIC PANEL (14) potassium 4.2 mmol/ L 3.5-5. 2 normal Not Available [facility] ([facility]) [address] [facility] [place], [address], 11/28/2024 18:38:03 11/18/19 25 11/18/2024 COMP. METAB OLIC PANEL (14) chloride 101 mmol/ L 96-106 normal Not Available [facility] ([facility]) [address] [facility] [place], [address], 11/28/2024 18:38:03 11/18/19 25 11/18/2024 COMP. METAB OLIC PANEL (14) carbon dioxide, total 24 mmol/ L 20-29 normal Not Available [facility] ([facility]) [address] [facility] [place], [address], 11/28/2024 18:38:03 11/18/19 25 11/18/2024 COMP. METAB OLIC PANEL (14) calcium 8.9 mg/dL 8.7-10 .2 normal Not Available [facility] ([facility]) [address] [facility] [place], [address], 11/28/2024 18:38:03 11/18/19 25 11/18/2024 COMP. METAB OLIC PANEL (14) protein, total 5.9 g/dL 6.0-8. 5 below low normal Not Available [facility] ([facility]) [address] [facility] [place], [address], 11/28/2024 18:38:03 11/18/19 25 11/18/2024 COMP. METAB OLIC PANEL (14) albumin 3.8 g/dL 3.8-4. 9 normal Not Available [facility] ([facility]) [address] [facility] [place], [address], 11/28/2024 18:38:03 11/18/19 25 11/18/2024 COMP. METAB OLIC PANEL (14) globulin, total 2.1 g/dL 1.5-4. 5 Not Available [facility] [facility]) [address] [facility] [place], [address], 11/28/2024 18:38:03 11/18/19 25 11/18/2024 COMP. METAB OLIC PANEL (14) bilirubin, total 0.3 mg/dL 0.0-1. 2 normal Not Available [facility] ([facility]) [address] [place], [address], 11/28/2024 18:38:03 11/18/19 25 11/18/2024 COMP. METAB OLIC PANEL (14) alkaline phosphatase 155 IU/L 44-121 above high normal Not Available [facility] ([facility]) [address] [facility] [place], [address], 11/28/2024 18:38:03 11/18/19 25 11/18/2024 COMP. METAB OLIC PANEL (14) AST (SGOT) 22 IU/L 0-40 normal Not Available [facility] ([facility]) [address] [facility] [place], [address], 11/28/2024 18:38:03 11/18/19 25 11/18/2024 COMP. METAB OLIC PANEL (14) ALT (SGPT) 19 IU/L 0-32 normal Not Available [facility] ([facility]) [address] [place], [address], 11/28/2024 18:38:03 11/18/19 25 11/18/2024 LIPID PANEL cholesterol, total 179 mg/dL 100-19 9 normal Not Available [facility] ([facility]) [address] [place], [address], 11/28/2024 18:38:03 11/18/19 25 11/18/2024 LIPID PANEL triglyceride s 63 mg/dL 0-149 normal Not Available [facility] ([facility]) [address] [place], [address], 11/28/2024 18:38:03 11/18/19 25 11/18/2024 LIPID PANEL HDL cholesterol 95 mg/dL >39 normal Not Available [facility] ([facility]) [address] [place], [address], 11/28/2024 18:38:03 11/18/19 25 11/18/2024 LIPID PANEL VLDL cholesterol sharon 12 mg/dL 5-40 Not Available [facility] ([facility]) [address] [facility], [place], [address], 11/28/2024 18:38:03 11/18/19 25 11/18/2024 LIPID PANEL LDL chol calc ([facility]) 72 mg/dL 0-99 Not Available [facility] ([facility]) [address] [facility], [place], [address], 11/28/2024 18:38:03 11/18/19 25 11/18/2024 LIPID PANEL LDL calc comment: [employer] RACER Not Available [facility] ([facility]) [address] [facility] [address], [place], [address], 11/28/2024 18:38:03 11/18/19 25 11/27/2024 VITAM IN E vitamin E(alpha tocopherol) 10.7 mg/L 7.0-25 .1 Not Available [facility] ([facility]) [address] [facility], [place], [address], 11/28/2024 18:38:04 11/18/19 25 11/27/2024 VITAM IN [...] in E defic ient. Not Available [facility] ([facility]) [address] [facility] [address], [place], [address], 11/28/2024 18:38:04 11/18/19 25 11/18/2024 HEMOG LOBIN A1C hemoglobin A1C 5.4 % 4.8-5. 6 normal Predi abete s: 5.7 - 6.4 Diabe zoila: >6.4 Glyce carol contr ol for adult s with diabe zoila: <7.0 Not Available [facility] ([facility]) [address] [facility], [place], [address], 11/28/2024 18:38:05 11/18/1911/18/2024 FOLAT E (FOLI C ACID) , SERUM folate (folic acid), serum >20.0 NG/mL >3.0 A serum folat e mikaela ntrat ion of less than 3.1 ng/mL is consi dered to repre sent clini sharon defic iency . Not Available [facility] ([facility]) [address] [facility] [address], [place], [address], 11/28/2024 18:38:05 11/18/19 25 11/27/2024 VITAM IN [...] e anny cteri stics deter mined by [employer]. It has not been clear ed or appro sakina by the Food and Drug Admin istra tion. Not Available [facility] ([facility]) [address] [facility] [address], [place], [address], 11/28/2024 18:38:06 11/18/1911/18/2024 VITAM IN D, 25-HY DROXY vitamin D, 25-hydroxy 32.3 NG/mL 30.0-1 00.0 Vitam in D defic iency has been defin ed by the Insti [place] of Medic ine and an Endoc rine [...] IOM (Inst itute of Medic ine). 2010. Dieta ry refer ence lillie es for calci um and DEfrain bunch [place]: [facility] . 2. Holic k MF, Binkl ey [place], Bisch off-F errar i FARRELL, et al. Evalu ation , treat ment, and preve ntion of vitam in D defic iency : an Endoc rine Socie ty clini sharon pract ice guide line. JCEM. 2010; 96(7) :1911 -30. Not Available [facility] ([facility]) [address] [place], [address], 11/28/2024 18:38:06 11/18/19 25 11/23/2024 VITAM IN B1 (THIA MINE) , BLOOD vit. B1, whole blood 133.4 nmol/ L 66.5-2 00.0 Not Available [facility] ([facility]) [address] [place], [address], 11/28/2024 18:38:07 11/18/19 25 11/23/2024 METHY LMALO INDIGO ACID, SERUM methylmaloni c acid, serum 165 nmol/ L 0-378 Not Available [facility] ([facility]) [address] [place], [address], 11/28/2024 18:38:07 11/18/19 25 11/21/2024 COPPE R, SERUM OR PLASM A copper, serum or plasma 122 ug/dL 80-158 Detec tion Limit = 5 Not Available [facility] ([facility]) [address] [place], [address], 11/28/2024 18:38:08 11/18/19 25 11/21/2024 ZINC, PLASM A OR SERUM zinc, plasma or serum 56 ug/dL 44-115 normal Detec tion Limit = 5 Not Available [facility] ([facility]) [address] [place], [address], 11/28/2024 18:38:08 11/18/19 25 11/18/2024 PREAL BUMIN prealbumin 16 mg/dL 10-36 Not Available [facility] ([facility]) [address] [facility] [address], [place], [address], 11/28/2024 18:38:09 11/18/19 25 11/28/2024 SELEN IUM, BLOOD selenium, blood 115 ug/L 100-34 0 Detec tion Limit = 10 Not Available [facility] ([facility]) [address] [facility] [address], [place], [address], 11/28/2024 18:38:09 Result Notes None recorded. Problems Name Problem SNOMED Code Status Onset Date Resolution Date Notes Provider Name and Address Organization Details Recorded Time Ulcer of anastomosi s 816614251 Active 2023 Hilario Woods DNP, CLINICAL DIRECTOR, [employer] [address], [place], [address] , [place] - [facility] - [place] & [place] 4 11:59:38 Obstructiv e sleep apnea syndrome 23431771 Active 2024 Hilario Woods DNP, CLINICAL DIRECTOR, [employer] [address], [place], [address] , [place] - [facility] - [place] & [place] 5 08:32:41 Asthma - currently active 679142069 Active 2024 Hilario Woods DNP, CLINICAL DIRECTOR, [employer] [address], [place], [address] , [place] - [facility] [place] & [place] 5 08:33:00 Pulmonary emphysema 32416814 Active 2024 Hilario Woosd DNP, CLINICAL DIRECTOR, [employer]-[facility] [address], [place], [address] , [place] - [facility] - [place] & [place] 5 08:33:06 History of clinical finding in subject 149229962 Active 2024 Hilario Woods DNP, CLINICAL DIRECTOR, [employer]-[facility] [address], [place], [address] , [place] - [facility] - [place] & [place] 5 08:33:26 Nodule of lung 929405570 Active 2024 Hilario Woods DNP, CLINICAL DIRECTOR, [employer]-[facility] [address], [place], [place], [address] [place] [address] , [place] & [place] 5 08:33:48 Hyperlipid emia 66376552 Active 2021 Hilario Woods DNP, CLINICAL DIRECTOR, [employer]-[facility] [address], [place], [place], [address] [place] [address] , [place] & [place] 2 12:50:33 Hypothyroi dism 92289581 Active 2021 Hilario Woods DNP, SANGEETA, [employer]-C [address], [place], [place], [address] [place] [address] , [place] & [place] 2 12:50:39 History of sleeve gastrectom y 5200041736028 07 Active 2021 Hilario Woods DNP, CLINICAL DIRECTOR, [employer]-[facility] [address], [place], [address] , [place] & [place] 2 12:51:22 Essential hypertensi on 43209606 Active 2021 Hilario Woods DNP, CLINICAL DIRECTOR, [employer]-[facility] [address], [place], [address] , [place] & [place] 2 13:07:08 Iron deficiency anemia 32107267 Active 2021 Hilario Woods DNP, CLINICAL DIRECTOR, [employer]-[facility] [address], [place], [address] , [place] & [place] 2 13:18:48 Heartburn 20356407 Active 2021 Hilario Woods DNP, APRN, [employer]-[facility] [address], [place], [place], [address] [place] [address] , [place] & [place] 2 13:39:01 Disorder of function of stomach 310664809 Active 2021 Hilario Woods DNP, APRN, [employer]-[facility] [address], [place], [place], [address] [place] [address] , [place] & [place] 2 13:39:09 Morbid obesity 084823368 Active 2022 Hilario Woods DNP, APRN, [employer]-C [address], [place], [place], [address] [place] [address] , [place] & [place] 3 09:30:50 Pre-surger y evaluation Active 2022 Hilario Woods DNP, APRN, [employer]-C [address], [place], [place], [address] [place] [address] , [place] & [place] 3 09:32:01 Nausea 798785833 Active 2022 Hilario Woods DNP, APRN, [employer]-C [address], [place], [place], [address] [place] [address] , [place] & [place] 3 09:36:40 Unintentio nal weight gain 1017731606510 04 Active 2023 Hilario Woods DNP, APRN, [employer]-[facility] [address], [place], [place], [address] [place] [address] , [place] & [place] 4 12:27:34 Vomiting 347844116 Active 2023 Hilario Woods DNP, APRN, [employer]-[facility] [address], [place], [place], [address] [place] [address] , [place] & [place] 4 14:01:05 Problem Notes None recorded. Procedures Surgical History Date Name Laterality Status Provider Name and Address Organization Details Recorded Time esophagogastroduodenoscopy completed Melanie FORDE - [facility] - [place] & [place] 3 09:26:22 Julio Cesar-en-Y gastrojejunostomy complete d Melanie Sebastian FORDE - [facility] - [place] & [place] 3 08:29:39 laparoscopic sleeve gastrectomy completed Melanie Sebastian FORDE - [facility] - [place] & [place] 2 13:00:35 fusion of joint of c ervical spine by anterior approach for deformity of cervical spine completed Melanie Sebastian FORDE - [facility] - [place] & [place] 2 13:01:48 revision of fusion o f cervical spine completed Melanie Sebastian FORDE - [facility] - [place] & [place] 2 13:02:08 Stimulation of spinal cord completed Melanie Sebastian FORDE - [facility] - [place] & [place] 2 13:02:22 esophagogastroduodenoscopy completed Melanie Sebastian FORDE - [facility] - [place] & [place] 2 13:02:28 Colonoscopy completed Melanie Sebastian FORDE - [facility] - [place] & [place] 2 13:02:42 Hysterectomy completed Melanie Sebastian FORDE - [facility] & [place] 2 13:03:46 cardiac catheterization completed R matteoca Sebastian Ford LPNT [facility] & [place] 2 13:05:15 Imaging Results None recorded. Procedure Notes None recorded. Medical Equipment None Reported. Allergies No known drug allergies Medications Name Sig Start Date Stop Date Status Note LastModified by Organization Details LastModified Time amantadine HCl 100 mg tablet 03/31 completed Not Available Not Available Not Available cyclobenzap rine 10 mg tablet 02/16 completed Not Available Not Available Not Available furosemide 40 mg tablet TAKE 1 TABLET BY MOUTH ONCE A DAY active Not Available Not Available No t Available levothyroxi ne 175 mcg tablet 02/16 completed Not Available Not Available Not Available Carafate 100 mg/mL oral suspension Take 10 mL 4 times a day by oral route for 30 days. 08/18 completed Not Available Not Available Not Available trazodone 50 mg tablet 02/16 completed Not Available Not Available Not Available triamcinolo ne acetonide 0.5 % topical cream 09/12 completed Not Available Not Available Not Available atorvastati n 10 mg tablet TAKE ONE TABLET BY MOUTH ONCE A DAY FOR CHOLESTER OL active Not Available Not Available No t Available oxybutynin chloride ER 10 mg tablet,exte nded release 24 hr TAKE ONE TABLET BY MOUTH ONCE A DAY active Not Available Not Available No t Available fluconazole 200 mg tablet Take 1 tablet every day by oral route. 08/18 completed Not Available Not Available Not Available sucralfate 1 gram tablet TAKE 1 TABLET BY MOUTH 4 TIMES DAILY 02/16 completed Not Available Not Available Not Available naltrexone 50 mg tablet 08/18 completed Not Available Not Available Not Available prednisone 20 mg tablet 11/17 completed Not Available Not Available Not Available amlodipine 2.5 mg tablet 02/16 completed Not Available Not Available Not Available metronidazo le 500 mg tablet 07/14 completed Not Available Not Available Not Available ciprofloxac in 500 mg tablet 07/14 completed Not Available Not Available Not Available sulfamethox azole 800 mg-trimetho prim 160 mg tablet 07/14 completed Not Available Not Available Not Available aspirin 81 mg tablet,tita yed release TAKE 1 TABLET BY MOUTH ONCE A DAY active Not Available Not Available No t Available tramadol 50 mg tablet 08/18 completed Not Available Not Available Not Available spironolact one 25 mg tablet TAKE 1 TABLET BY MOUTH ONCE A DAY active Not Available Not Available No t Available glycerin (child) rectal suppository 07/14 completed Not Available Not Available Not Available famotidine 20 mg tablet Take 1 tablet every day by oral route at bedtime for 30 days. active Not Available Not Available No t Available amitriptyli ne 25 mg tablet TAKE ONE TABLET BY MOUTH AT BEDTIME 02/16 completed Not Available Not Available Not Available Lidoderm 5 % topical patch 07/14 completed Not Available Not Available Not Available ropinirole 0.25 mg tablet TAKE ONE TABLET BY MOUTH 1 TO 3 HOURS BEFORE BEDTIME 02/16 completed Not Available Not Available Not Available sulfacetami de sodium 10 % eye drops 07/14 completed Not Available Not Available Not Available pantoprazol e 40 mg tablet,tita yed release TAKE 1 TABLET BY MOUTH EVERY DAY active Not Available Not Available No t Available buspirone 10 mg tablet TAKE ONE TABLET BY MOUTH 3 TIMES A DAY active Not Available Not Available No t Available lisinopril 10 mg tablet TAKE ONE TABLET BY MOUTH ONCE A DAY active Not Available Not Available No t Available levothyroxi ne 150 mcg tablet 03/31 [...] Not Available levothyroxi ne 200 mcg tablet TAKE ONE TABLET BY MOUTH ONCE A DAY active Not Available Not Available No t Available mupirocin 2 % topical ointment APPLY TO NOSE WITH Q TIP TOPICALLY TWICE DAILY active Not Available Not Available No t Available furosemide 20 mg tablet TAKE ONE TABLET BY MOUTH EVERY MORNING 02/16 completed Not Available Not Available Not Available metoprolol succinate ER 25 mg tablet,exte nded release 24 hr TAKE 1 TABLET BY MOUTH ONCE A DAY active Not Available Not Available No t Available ergocalcife rol (vitamin D2) 1,250 mcg [...] sulfate HFA 90 mcg/actuati on aerosol inhaler INHALE 2 PUFFS BY MOUTH FOUR TIMES A DAY NEEDED FOR SHORTNESS OF BREATH OR WHEEZING active Not Available Not Available No t Available celecoxib 100 mg capsule Take 1 [...] Available duloxetine 60 mg capsule,del ayed release TAKE ONE CAPSULE BY MOUTH ONCE A DAY active Not Available Not Available No t Available pregabalin 75 mg capsule TAKE 1 CAPSULE BY MOUTH TWICE DAILY 02/16 completed Not Available Not Available Not Available B Complex 03/31 completed Not Available Not Available Not Available calcium citrate 2023 active Not Available Not Available Not Avai lable multivitami n active Not Available Not Available Not Available varenicline tartrate 1 mg tablet 02/16 completed Not Available Not Available Not Available varenicline tartrate 0.5 mg (11)-1 mg (42) tablets in a dose pack 11/17 completed Not Available Not Available Not Available GaviLyte-G 236 gram-22.74 gram-6.74 gram-5.86 gram oral solution 07/14 completed Not Available Not Available Not Available B12 03/31 completed Not Available Not Available Not Available Horizant ER 600 mg tablet,exte nded release TAKE 1 TABLET BY MOUTH IN THE EVENING AT 5 PM WITH FOOD /MEAL active Not Available Not Available No t Available iron ER 159 mg (45 mg iron) tablet,exte nded release 01/29 completed Not Available Not Available Not Available Slow Release Iron 142 mg (45 mg iron) tablet,exte nded release 08/18 completed Not Available Not Available Not Available Vraylar 1.5 mg capsule 01/29 completed Not Available Not Available Not Available Vraylar 3 mg capsule TAKE 1 CAPSULE BY MOUTH ONCE A DAY active Not Available Not Available No t Available Ozempic 0.25 mg or 0.5 mg (2 mg/1.5 mL) subcutaneou s pen injector 01/29 completed Not Available Not Available Not Available baclofen 5 mg tablet 08/18 completed Not Available Not Available Not Available Rybelsus 7 mg tablet 01/29 completed Not Available Not Available Not Available Rybelsus 3 mg tablet 07/14 completed Not Available Not Available Not Available budesonide 160 mcg-glycopy r 9 mcg-formot 4.8 mcg/actuati on HFA inhaler Inhale 2 puffs twice a day by inhalatio n route. active Not Available Not Available No t Available Ozempic 1 mg/dose (4 mg/3 mL) subcutaneou s pen injector 04/18 completed Not Available Not Available Not Available Vitals Date Recorded Body height Body temperature Heart rate Body mass index (BMI) Body weight Systolic blood pressure Diastolic blood pressure Provider Name and Address Organization Details Last Updated DateTime 5 160.02 cm 96.3 [degF] 63 /min 44.2 kg/m2 241651. 37 g 153 mm[Hg] 81 mm[Hg] Mary COOK [facility] 5 09:14:23 Date Recorded Body height Body temperature Body mass index (BMI) Body weight Heart rate Systolic blood pressure Diastolic blood pressure Provider Name and Address Organization Details Last Updated DateTime 5 160.02 cm 98 [degF] 44.7 kg/m2 782605. 43 g 78 /min 119 mm[Hg] 76 mm[Hg] [facility] 5 08:11:23 Date Recorded Body height Body temperature Body mass index (BMI) Body weight Heart rate Systolic blood pressure Diastolic blood pressure Provider Name and Address Organization Details Last Updated DateTime 4 160.02 cm 98.1 [degF] 35.8 kg/m2 39046.6 6 g 71 /min 119 mm[Hg] 78 mm[Hg] Mary COOK [facility] 4 13:41:10 Date Recorded Body height Body temperature Body mass index (BMI) Body weight Heart rate Systolic blood pressure Diastolic blood pressure Provider Name and Address Organization Details Last Updated DateTime 4 160.02 cm 98.1 [degF] 39.8 kg/m2 004574. 92 g 64 /min 137 mm[Hg] 83 mm[Hg] Mary COOK [facility] & [place] 4 11:41:06 Social History None recorded. Functional Status Question Answer Note LastModified by Organizat ion Details LastModified Time Do you use any illicit or recreational drugs? No [email or web address] Information not available 07/14/2022 What is your level of alcohol consumption? None [email or web address] Information not available 07/14/2022 Mental Status None [...] SNOMED-CT Code Diagnosis ICD10 Code Diagnosis Note [id number] Hilario Woods, DNP, CLINICAL DIRECTOR, [employer]ER-C [facility] [address] [facility] [address] [facility] [address] 07/14/2022 12:39:25 07/14/2022 14:44:14 History of bariatric surgical procedure 636730561 Z98.84 Advised qid intake 50% protein 7684-6543 calories/d y less than 100 carbs/dy Patient [...] speak with patient today History of gastrectomy 006658887 Z90.3 Patient is status post bariatric surgery and at increased risk for vitamin deficienci es and malnutriti on. Bariatric vitamin panel ordered today. Patient will be contacted to correct any vitamin deficienci es. Hyperlipidemia 96297963 E78.5 Hypothyroidism 29907603 E03.9 History of sleeve gastrectomy 9855918791 17592 Z90.3 Essential hypertension 62598661 I10 Iron defic iency anemia 17532091 D50.9 Heartburn 35767453 R12 GERD-patie nt was reassured. We discussed [...] her EGD from since the on a [place]. Possible EGD with Dr. Flores. Disorder o f function of stomach 818438216 K31.89 [id number] Hilario Woods, DNP, CLINICAL DIRECTOR, [employer]ER-C [facility] [address] [facility] [address] [place] [address] 01/29/2023 09:27:10 01/29/2023 09:52:58 History of bariatric surgical procedure 147911875 Z98.84 Advised qid intake 50% protein 8454-1926 calories/d y less than 100 carbs/dy Patient [...] declines at this time. History of gastrectomy 864308464 Z90.3 Patient is status post bariatric surgery and at increased risk for vitamin deficienci es and malnutriti on. Bariatric vitamin panel ordered today. Patient will be contacted to correct any vitamin deficienci es. Essential hypertension 26765200 I10 Hyperlipidemia 23179177 E78.5 Hypothyroidism 56196733 E03.9 Iron defic iency anemia 70235176 D50.9 Intentiona l weight loss 165905297 R63.8 Heartburn 67137304 R12 GERD-patie nt was reassured. We discussed [...] her EGD from since the on a [place]. Possible EGD with Dr. Flores. Disorder o f function of stomach 767325156 K31.89 [id number] SHARONA Ruiz [facility] [address] [facility] [address] [place] [address] 03/26/2023 09:03:41 03/26/2023 10:01:27 Gastroesophageal reflux disease 163984586 K21.9 We discussed concerns of worsening gastroesop [...] prior to revisional surgery History of gastrectomy 412905484 Z90.3 patient is to continue healthy bariatric diet. Continue routine vitamin supplement ation. We will request january results to complete our chart. Repeat bariatric labs needed approximat sandra May 2023 Iron defic iency anemia 56214506 D50.9 adequately supplement ed. Normal labs January 2023 Vitamin D deficiency 347 00923 E55.9 adequately supplement ed. Normal labs January 2023 [id number] Brennen Flores DO [facility] [address] [facility] [address] [place] [address] 04/18/2023 07:32:42 04/18/2023 12:14:27 Morbid obesity 746662462 E66.01 Pre-surger y evaluation 849476888 Z01.818 Postoperative pain 15981 9007 G89.18 Essential hypertension 66962704 I10 Heartburn 70042882 R12 Continue current PPI therapy. History of sleeve gastrectomy 7148300273 02684 Z90.3 Hyperlipidemia 25185555 E78.5 Hypothyroidism 24945573 E03.9 Iron defic iency anemia 95064602 D50.9 [id number] Hilario Woods, DNP, CLINICAL DIRECTOR, [employer]ACER-C [facility] [address] [facility] [address] [place] [address] 05/08/2023 07:57:00 05/08/2023 09:41:43 History of bariatric surgical procedure 406230388 Z98.84 The patient is doing well. The [...] choose to have them drawn at [facility] they are to make sure that [...] plan and agree to comply. Essential hypertension 63880434 I10 History of sleeve gastrectomy 7244264554 34862 Z90.3 Hyperlipidemia 62681800 E78.5 Hypothyroidism 23463373 E03.9 Iron defic iency anemia 85001244 D50.9 Intentiona l weight loss 013710411 R63.8 Nausea 771612830 R11.0 [id number] Hilario Woods, DNP, CLINICAL DIRECTOR, [employer]ER-C [facility] [address] [place] [facility] [address] 06/04/2023 10:04:12 06/04/2023 10:37:37 History of bariatric surgical procedure 428989047 Z98.84 The patient is doing well. The [...] choose to have them drawn at [facility] they are to make sure that [...] agree to comply. Intentiona l weight loss 988557216 R63.8 History of gastrectomy 715835905 Z90.3 Advised qid intake 50% protein 7550-8885 calories/d y less than 100 carbs/dy Patient is status post bariatric surgery and at increased risk for vitamin deficienci es and malnutriti on. Bariatric vitamin panel ordered today. Patient will be contacted to correct any vitamin deficienci es. Essential hypertension 73998819 I10 Hyperlipidemia 79632365 E78.5 Hypothyroidism 12623367 E03.9 Iron defic iency anemia 91221050 D50.9 Morbid obesity 564044569 E66.01 [id number] Hilario Woods, DNP, CLINICAL DIRECTOR, [employer] RACER-C [facility] [address] [place] [address] [facility] [address] 09/12/2023 13:39:31 09/12/2023 14:11:00 History of bariatric surgical procedure 362766921 Z98.84 The patient is doing well. The [...] choose to have them drawn at [facility] they are to make sure that [...] agree to comply. Intentiona l weight loss 977929411 R63.8 History of gastrectomy 218396875 Z90.3 Advised qid intake 50% protein 0256-2292 calories/d y less than 100 carbs/dy Long [...] correct any vitamin deficienci es. Essential hypertension 87174089 I10 History of sleeve gastrectomy [id number] 83525 Z90.3 Hyperlipidemia 65091365 E78.5 Hypothyroidism 45307732 E03.9 Iron defic iency anemia 65855699 D50.9 Morbid obesity 547778197 E66.01 [id number] Hilario Woods, DNP, CLINICAL DIRECTOR, DIRT BIKE RACER-C [facility] Bariatric s and Adv Surg [address] [facility] [address] [place] [address] 12/14/2023 08:59:51 12/14/2023 09:38:34 History of bariatric surgical procedure 810848214 Z98.84 The patient is doing well. The patient is instructed to continue their vitamins as directed. They are to continue advancing their diet as directed.T hey may start exercising but keep lifting less [...] choose to have them drawn at another [facility] they are to make sure that [...] agree to comply. Intentiona l weight loss 417908622 R63.8 History of gastrectomy 098446733 Z90.3 Advised qid intake 50% protein 9022-0945 calories/d y less than 100 carbs/dyLo ng [...] correct any vitamin deficienci es. Essential hypertension 41882174 I10 Hyperlipidemia 19296688 E78.5 Hypothyroidism 75433160 E03.9 Iron defic iency anemia 04870517 D50.9 Morbid obesity 810220499 E66.01 Unintentio nal weight gain 2220501609 77210 R63.[id number], [facility] [address] [facility] [address] [place] [address] 01/02/2024 11:58:38 01/02/2024 14:46:03 Morbid obesity 902322759 E66.01 BMI 36.7 Wt loss 9# Dietary [facility] surveillance 062360113 Z71.3 [id number] Hilario Woods, DNP, CLINICAL DIRECTOR, DIRT BIKE RACER-C [facility] [address] [facility] [address] [place] [address] 03/31/2024 10:16:51 03/31/2024 11:18:28 History of bariatric surgical procedure 287169701 Z98.84 The patient is doing well. The patient is instructed to continue their vitamins as directed. They are to continue advancing their diet as directed.T hey may start exercising but keep lifting less [...] choose to have them drawn at another [facility] n they are to make sure that the [...] agree to comply. Intentiona l weight loss 153960175 R63.8 History of gastrectomy 337619465 Z90.3 Advised qid intake 50% protein 0478-0677 calories/d y less than 100 carbs/dyLo ng [...] correct any vitamin deficienci es. Essential hypertension 47481474 I10 Hyperlipidemia 76896092 E78.5 Hypothyroidism 44820225 E03.9 Iron defic iency anemia 65751380 D50.9 Unintentio nal weight gain 7902283183 93083 R63.5 Morbid obesity 102268079 E66.01 [id number] Hilario Woods, LEVAR, CLINICAL DIRECTOR, DIRT BIKE RACER-C [facility] [address] [facility] [address] [place] [address] 04/14/2024 13:31:27 04/14/2024 15:48:01 History of bariatric surgical procedure 286264499 Z98.84 Intentiona l weight loss 733641578 R63.8 Essential hypertension 75264293 I10 Hyperlipidemia 31068401 E78.5 Hypothyroidism 04309109 E03.9 Iron defic iency anemia 08411884 D50.9 Vomiting 320349577 R11.1 0 Heartburn 56539165 R12 GERD-patie nt was reassured. We discussed [...] well as EGD with possible dilatation .. [id number] Hilario Woods, DNP, CLINICAL DIRECTOR, DIRT BIKE RACER-C [facility] Bariatric s and Adv Surg [address] [place] [address] [place] [address] [place] [address] 08/18/2024 11:29:14 08/18/2024 12:37:20 History of bariatric surgical procedure 994855580 Z98.84 Intentiona l weight loss 045459880 R63.8 History of gastrectomy 701824680 Z90.3 Advised qid intake 50% protein 0246-4708 calories/d y less than 100 carbs/dyLo ng [...] to correct any vitamin deficienci es. At [facility] ed risk of nutritional deficit 677107547 Z91.89 Essential hypertension 84414196 I10 Hyperlipidemia 85407588 E78.5 Hypothyroidism 58979633 E03.9 Iron defic iency anemia 51563597 D50.9 Ulcer of anastomosis 447 829315 K26.9 told to notify if tablets are expensive Heartburn 51211681 R12 GERD-patie nt was reassured. We discussed [...] keep upcoming appt for UGI. Morbid obesity 244071692 E66.01 [id number] Hilario Woods, LEVAR, CLINICAL DIRECTOR, DIRT BIKE RACER-C [facility] Bariatric s and Adv Surg [address] [facility] [address] [facility] [address] 11/17/2024 08:59:09 11/18/2024 10:46:44 History of bariatric surgical procedure 102807433 Z98.84 Intentiona l weight loss 334026722 R63.8 History of gastrectomy 058147807 Z90.3 Advised qid intake 50% protein 2356-9615 calories/d y less than 100 carbs/dyLo ng [...] to correct any vitamin deficienci es. At increas ed risk of nutritional deficit 772749012 Z91.89 Essential hypertension 78540231 I10 Hyperlipidemia 13341727 E78.5 Hypothyroidism 51711328 E03.9 Iron defic iency anemia 43765523 D50.9 History of sleeve gastrectomy 6951825321 60268 Z90.3 Morbid obesity 274087852 E66.01 Unintentio nal weight gain 8396356609 75399 R63.[id number] [facility] Bariatric s and Adv Surg [address] [facility] [address] [facility] [address] 11/17/2024 16:09:54 11/17/2024 16:15:57 Dietary management surveillance 663565180 Z71.3 [id number] Hilario Woods, DNP, CLINICAL DIRECTOR, DIRT BIKE RACER-C [facility] Bariatric s and Adv Surg [address] [facility] [address] [facility] [address] 02/16/2025 07:58:17 02/16/2025 09:13:14 History of bariatric surgical procedure 838581016 Z98.84 Intentiona l weight loss 066385535 R63.8 History of gastrectomy 589370406 Z90.3 Advised qid intake 50% protein 6920-9707 calories/d y less than 100 carbs/dyLo ng [...] NANCY in 3mth suggested. I did offer dietitian, pt declines at this time. Patient is status post bariatric surgery and at increased risk for vitamin deficienci es and malnutriti on. Bariatric vitamin panel ordered today. Patient will be contacted to correct any vitamin deficienci es. At increas ed risk of nutritional deficit 238497354 Z91.89 Essential hypertension 25687906 I10 Hyperlipidemia 17808199 E78.5 Hypothyroidism 79752691 E03.9 Iron defic iency anemia 54097536 D50.9 Heartburn 71864096 R12 GERD-patie nt was reassured. We discussed lifestyle modificati ons in patient-di rected therapy which are designed to decrease distal esophageal acid exposure. Plan is to not continue proton pump inhibitor to once a day. Will continue Protonix. stay on h2 jazmine . Other [...] her to keep upcoming appt for UGI. History of sleeve gastrectomy 5126846222 61569 Z90.3 Morbid obesity 251798860 E66.01 Unintentio nal weight gain 2542229263 99236 R63.5 Obstructiv e sleep apnea syndrome 38134238 G47.33 Pulmonary emphysema 8743 3001 J43.9 Asthma - c urrently active 147157322 J45.909 History of clinical finding in subject 424492039 Z87.891 Nodule of lung 837580876 R91.1 advised to keep all upcoming appt. Health Concerns Section Related Observation LastModified by Organization Detai ls LastModified Time None Recorded Concern Status LastModified by Organization Details LastModified Time None Recorded Advance Directives Directive None Recorded Payers Insurance Date Sequence Insurance Name Policy Number Policy Rojas Covered Member ID Rojas Member ID Guarantor Name 02/15/2025 1 [employer] - [facility] (MEDICAID REPLACEMENT - HMO) CSKY Bushra Lundberg [id number] Bushra Lundberg 02/15/2025 1 [employer] - [place] (MEDICAID REPLACEMENT - HMO) [id number] Bushra Lundberg [id number] Bushra Lundberg Notes Date Note Type Note Provider Name and Address Organization Details Recorded Time 04/14/2024 text/html Patient presents the office today for an acute follow-up status post bariatric gastric revision of sleeve gastrectomy to Julio Cesar-en-Y gastric bypass surgery performed on 2022. Patient doing well. Reports q.i.d. small meal intake. Reports 60-70g/dy protein intake and good hydration.Patient is drinking 64 ounces of water a day.Daily Calories 1100Taking routine vitamins as advised.Heartburn/gas troesophageal reflux: Daily for the past week. She has no longer taking PPI.Pt Denies : abdominal pain, prandial issues bowel or bladder issues. she did start having vomiting and diarrhea that started 1 week ago. She tells me that she gets nauseated but did have an issue eating a chili dog without the [place].Total Weight loss Since last office visit has been 9 lbsPt is happy with their quality of life after Weight loss Surgery. Hilario Woods DNP, SANGEETA, DIRT BIKE RACER-C [address], [place], [address], [facility] & [place] 04/14/2024 15:27:35 08/18/2024 text/html Patient presents the [...] routine vitamins as advised. Hx of Iron deficiencyHeartburn/g astroesophageal reflux: occasional. She does not feel as though PPI is working. She has not had UGI yet. Had to reschedule it several times. It is now set up fro next week at [facility]. She could not afford carafate suspension. [...] 52.1Basal Metabolic Rate = 1425kilo calories Hilario Woods DNP, SANGEETA, DIRT BIKE RACER-C [address], [place], [address], [facility] & [place] 08/18/2024 13:02:08 11/17/2024 text/html RDN met w/ [...] 52.4Basal Metabolic Rate = 1536 kilo calories Signs/SymptomsN/V/C/D : denies Meds and labs reviewed.Notes - MVI, [...] heart tests done. KATHERINE CID, RD [address] [facility], [place], [address], [facility] - [facility] - [place] & [place] 11/17/2024 16:15:46 11/17/2024 text/html Patient presents the [...] advised. Hx of iron and Vit D deficiencyHeartburn/g astroesophageal reflux: deniesPt Denies : abdominal pain, prandial issues Nausea, Vomiting, bowel or bladder issuesTotal Weight gain Since last office visit has been24.9 lbsPt is happy with their quality of life after Weight loss Surgery.cards took her off HCT.Z. IS to see him next Sunday due to swelling on her ankles. She has been seeing Dr. Fernandez in [place] at [facility]. She has been stress eating . [...] scan performed roughly 2 weeks ago at [facility]. She tells me that a 10 [...] having an actual sleep study performed at [facility] [place] tomorrow night. Today's InBody reveals a skeletal muscle mass = 64.4 lb,body fat mass = 130.8 lb,BMI = 44.3Percent body fat = 52.4Basal Metabolic Rate = 1536 kilo calories Hilario Woods, DNP, CLINICAL DIRECTOR, DIRT BIKE RACER-C [address] [facility], [place], [address], [facility] [place] & [place] 11/17/2024 09:42:51 02/16/2025 text/html Patient presents the office today for routine follow-up status post bariatric gastric revision of sleeve gastrectomy to Julio Cesar-en-Y gastric bypass surgery performed on 2022. Patient doing well. Reports q.i.d. small meal intake. Reports has not been counting, but est 30g/dy protein intake and good hydration.Patient is drinking 64 ounces of water a day.Daily Calories has not been countingTaking routine vitamins as advised.Heartburn/gas troesophageal reflux: yes (is food related, manasa Belarusian)Pt Denies : abdominal pain, prandial issues Nausea, Vomiting, bowel or bladder issuesTotal Weight gain Since last office visit has been 2.8 lbsPt is happy with their quality of life after Weight loss Surgery.She does however tell me that she has been stress eating. She tells me that she is basically eating want her wants cook twitches typically carbs. She is eating breads again as well as potatoes. She is happy to report that she stopped vaping 3 months ago. She continues to see Pulmonary. She did have a CT scan 2 weeks ago which did reveal the right lung nodule has increased from 10 mm to 15 mm. She has had labs checked for genetic testing and she is to follow up with her instrument maker apprentice in [address] scan. She is also seeing a coil taper oncologist Dr. Raymond Bowen out of [facility]. She does not have a follow up scheduled with him yet. She has been recently diagnosed with both emphysema and asthma. She has also been diagnosed with obstructive sleep apnea and is wearing a CPAP machine. She tells me that her primary care provider has tried to get her on Zepbound for obstructive sleep apnea but this was denied. States that she needs to be on a CPAP machine for at least 3 months to have this considered. She also had a heart catheterization performed on January 15 and did not have to have stents placed. Today's InBody reveals a skeletal muscle mass = 64.8 lb,body fat mass = 136.2 lb,BMI = 44.8Percent body fat = 54.0Basal Metabolic Rate = 1509 kilo calories Hilario Woods, DNP, CLINICAL DIRECTOR, DIRT BIKE RACER-C [address], [place], [address], [facility] [place] [facility] [place] 02/16/2025 08:34:53 OBGyn Episode No OBEpisode recorded.
--- OUTSIDE RECORDS SUMMARY | 2025-02-16 12:43 | XMS_ITS | Data Portability ---
Author Organization MAURISIO PEMA Marte ANTHONY CLOSED Address [address] [facility] [address] [place] [address] Care Team Providers Care Provider Network Manager Name Role Phone YAMILETH ZAVALETA Referring Provider [phone] ASHISH ATKINSON Primary Care Provider Assessment Encounter Date Assessment Date Assessment LastModified by Organization Details LastModified Time 2021 2021 HPI: Ms. Lundberg is a 56yo female with [...] including all in all of her fingers. PHYSICAL EXAM: Hyperreflexia all extremities, no signs [...] with voice recognition technology and may include parts department manager errors. Not available 03/07/2021 11:00:40 05/19/2021 05/19/2021 [...] new AP lateral cervical x-ray [facility]. She says she still has [...] or 3 view [facility] [address] [facility] [address] Monicaclara t Name: BIA Solis PABLORAINA schneider : [birth year] Karlee schneider Orderi [...] Edwin Stewart MD on 01/21/20 8:51 AM [facility] [address] [place] [address], [address], 01/24/2021 17:29:17 02/01/2001/31/2021 MRI, cervi sharon spine , w/wo contr ast [address] [place] [address] Karlee schneider Name: BIA schneider : [birth year] 67 Paticlara t Orderi ng Provid er: PUJA Cornejo PAPITO EXAM DATE: 2020 EXAM: MR CERVIC [...] ality is identi fied. The visual ized strand buncher fine wire ior fossa of the brain is normal [...] strati on of [address] ([facility] [address]-0 2), there is no abnorm al [...] Cherelle silveira MD on 021 11:[address] [facility] Radiology [facility] [address] [place], [address], 02/01/2021 16:34:20 03/01/20 21 03/01/2021 nerve condu ction study /EMG, upper extre mity (PROC ) No observ ation record ed. [facility] [address] [place], [address], 03/28/2021 17:43:06 04/06/20 21 04/06/2021 fluor oscop y (PROC ) No observ ation record ed. [email or web address] [facility] Scheduling [address] [facility] , [place], [address], 04/08/2021 14:25:37 05/19/20 21 05/19/2021 XR, cervi sharon spine , 2 or 3 view [facility] ton [facility] [address] [place] [address] Patien t Name: BIA Desir t : [birth year] [...] Signed By: Edwin Stewart MD on 05/19/20 21 1:30 PM [facility] [address] [place], [address], 05/19/2021 18:02:04 08/18/20 21 08/18/2021 XR, cervi sharon spine , 2 or 3 view [facility] [address] [facility] [place] [address] Karlee schneider Name: BIA schneider : [birth year] [...] ly Signed By: Kimberly Langford MD on 021 3:54 PM [facility] [address] [place] [address], [address], 08/19/2021 09:21:43 Result Notes None recorded. Procedures Surgical History Date Name Laterality Status Provider Name and Address Organization Details Recorded Time 021 ANTERIOR CERVICAL DISCECTOMY AND FUSION, LEVEL SPECIFIED, WITH HARDWARE (SURG) completed Candy Melendrez [facility] 04/11/2021 16:27:57 021 Electromyography (EMG) with Nerve Conduction Study (NCV) completed Yari Payan (Nicky) [facility] 03/01/2021 10:44:38 021 ANTERIOR CERVICAL DISCECTOMY AND FUSION, LEVEL SPECIFIED, WITH HARDWARE (SURG) completed Marta Smith [facility] 10/22/2020 08:13:57 021 ANTERIOR CERVICAL DISCECTOMY AND FUSION, LEVEL SPECIFIED, WITH HARDWARE (SURG) completed Marta Smith [facility] 11/05/2020 16:07:08 laparoscopic sleeve gastrectomy completed Nery Barnesdie [facility] 09/27/2020 09:27:30 Partial Hysterectomy completed [facility] 09/27/2020 09:27:42 Imaging Results None recorded. Procedure Notes None [...] Updated DateTime 2021 160.02 cm 40.7 kg/m2 634826.2 5 g 142 mm[Hg] 80 mm[Hg] [facility] 09:31:14 Date Recorded Body height Provider Name an d Address Organization Details Last Updated DateTime 05/19/2021 160.02 cm Nery Carranza [facility] 10/2020 14:11:54 Date Recorded Body height Body mass index (BMI) Body weight Systolic blood pressure Diastolic blood pressure Provider Name and Address Organization Details Last Updated DateTime 08/18/2021 160.02 cm 40.7 kg/m2 766861.2 5 g 130 mm[Hg] 82 mm[Hg] [facility] 10:48:59 Social History None recorded. Functional [...] 09:26:43 Medical History Condition Response Arthritis Y Hypothyroidism Y High Cholesterol Y Hypertension Y Gynecological HistoryNo gynecological history recorded. Obstetrics History GPAL:G 0 P 0 0 0 0 Past Encounters Encounter ID Performer Location Encounter Start Date Encounter Closed Date Diagnosis/Indication Diagnosis SNOMED-CT Code Diagnosis ICD10 Code Diagnosis Note [id number] MARION MELENDEZ MD NEUROSURG [facility] [address] [place] [address] 09/27/2020 08:28:55 09/27/2020 10:49:12 Cervical spondylosis with myelopathy 02144352 M47.12 [id number] MARION MELENDEZ MD SURGERY SCHEDULE [address] [place] [address] 10/12/2020 09:31:36 10/12/2020 11:21:55 [id number] HEBERT GAMBOA PA-C NEUROSURG [facility] [address] [place] [address] 11/18/2020 10:05:27 11/23/2020 13:03:13 [id number] CHOCO MELISSA PA-C NEUROSURG [facility] [address] [place] [address] 2021 09:02:56 01/21/2021 15:06:30 Cervical radiculopathy 44121753 M54.12 [id number] [place] [address] [place] [address] 1 03/01/2021 08:58:19 03/01/2021 10:50:27 Cervical radiculopathy 39880411 M54.12 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 7942309462 92421 G56.01 [id number] MARION MELENDEZ MD SURGERY SCHEDULE [address] [place] [address] 04/14/2021 08:40:55 04/14/2021 13:24:31 [id number] MARION MELENDEZ MD [facility] [address] [place] [address] 05/19/2021 13:30:28 05/20/2021 16:10:58 Postoperative care 974414218 Z48.89 [id number] CHOCO MELISSA PA-C NEUROSURG [facility] [address] [place] [address] 08/18/2021 10:28:01 08/19/2021 09:17:33 Postoperative visit 726841773 Z09 Health Concerns Section Related Observation LastModified by Organization Detai ls LastModified Time None Recorded Concern Status LastModified by Organization Details LastModified Time None Recorded Advance Directives Directive None Recorded Payers Insurance Date Sequence Insurance Name Policy Number Policy Rojas Covered Member ID Rojas Member ID Guarantor Name 05/15/2021 1 [employer]NA [facility] (MEDICAID REPLACEMENT - HMO) [id number] Bushra Lundberg [id number] Bushra Lundberg 08/17/2021 1 [employer] - [place] (MEDICAID REPLACEMENT - HMO) Bushra Lundberg [id number] Bushra Lundberg Notes Date Note Type Note [...] all of her fingers. CHOCO MELISSA PA-C [facility] [place], [address], [facility] 03/07/2021 11:00:45 05/19/2021 text/html Mrs. Lundberg [...] postoperative visit with x-rays. MARION MELENDEZ MD [address] [place], [address], [facility] 05/19/2021 14:53:03 08/18/2021 text/html Ms. Lundberg is a 56-year-old female with history of C4-6 ACDF on 10/06/[address] Melendez him a C6-7 extension on 04/06/21, last seen here in 05/19/21, here for recheck and second postop visit with new AP lateral cervical x-ray [facility]. She says she still has [...] stimulator trial soon. CHOCO MELISSA PA-C [address] [place], [address], [facility] 08/18/2021 11:30:25 OBGyn Episode No OBEpisode recorded.
--- OUTSIDE RECORDS SUMMARY | 2025-02-16 12:43 | XMS_ITS | Continuity of Care Document ---
Author Organization [facility] & [facility] Address [address] [place] [address] Care Team Providers Care Ncqa Specialist Name Role Phone MARION LYLES Primary Care Provider [phone] Assessment No assessment recorded. Plan of Treatment Reminders Order Date Submit Date Provider Last Modified By Organization Details Last Modified Time Details Appointments OV EST 20 2024 08:00A M Hialrio Woods, LEVAR, CONVERSION MAN, ENVIRONMENTAL SAMPLER-C Not available Not available Not available OV EST 20 2024 09:20A M Hilario Woods, LEVAR, CONVERSION MAN, ENVIRONMENTAL SAMPLER-C Not available Not available Not available Lab copper, serum or plasma 2024 025 NATHAN [facility], [address], [address], [place], [address], 02/16/2025 08:03:03 selenium , quantita tive, blood 2024 025 NATHAN [facility], [address], [address], [place], [address], 02/16/2025 08:02:47 zinc, serum or plasma 2024 025 NATHAN [facility], [address], [address], [place], [address], 02/16/2025 08:03:04 folate, serum 2024 025 NATHAN [facility], [address], [address], [place], [address], 02/16/2025 08:03:03 vitamin E, serum 2024 025 NATHAN [facility], [address], [address], [place], [address], 02/16/2025 08:02:46 vitamin A (retinol ), serum 2024 025 NATHAN [facility], [address], [address], [place], [address], 02/16/2025 08:03:03 prealbum in, serum 2024 025 NATHAN [facility], [address], [address], [place], [address], 02/16/2025 08:03:02 thiamine , QN, blood 2024 025 NATHAN [facility], [address], [address], [place], [address], 02/16/2025 08:03:03 methylma lonate, QN, serum or plasma 2024 025 NATHAN [facility], [address], [address], [place], [address], 02/16/2025 08:02:48 vitamin D, 25-hydro xy, total, serum 2024 025 NATHAN [facility], [address], [address], [place], [address], 02/16/2025 08:02:46 CBC w/ auto diff 2024 025 NATHAN [facility], [address], [address], [place], [address], 02/16/2025 08:03:02 CMP, serum or plasma 2024 025 NATHAN [facility], [address], [address], [place], [address], 02/16/2025 08:02:47 TSH + free T4, serum 2024 025 NATHAN [facility], [address], [address], [place], [address], 02/16/2025 08:02:48 HbA1c (hemoglo bin A1c), blood 2024 025 NATHAN [facility], [address], [address], [place], [address], 02/16/2025 08:03:04 lipid panel, serum 2024 025 NATHAN [facility], [address], [address], [place], [address], 02/16/2025 08:02:46 iron + TIBC + ferritin , serum 2024 025 NATHAN [facility], [address], [address], [place], [address], 02/16/2025 08:02:47 Referral None recorded . Procedures None recorded . Surgeries None recorded . Imaging None recorded . Medication Orders None recorded . Patient TargetsNo targets recorded. Patient InstructionsNo instructions recorded. Reason for Referral None Reported. Problems Name Problem SNOMED Code Status Onset Date Resolution Date Notes Provider Name and Address Organization Details Recorded Time Ulcer of anastomosi s 553773766 Active 2023 Hilario Woods DNP, SANGEETA, ENVIRONMENTAL SAMPLER-C [address], [place], [address] , [facility] & [place] 4 11:59:38 Obstructiv e sleep apnea syndrome 63624692 Active 2024 Hilario Woods DNP, APRN, ENVIRONMENTAL SAMPLER-C [address], [place], [address] , [place] - [facility] - [place] & [place] 5 08:32:41 Asthma - currently active 777600637 Active 2024 Hilario Woods DNP, CONVERSION MAN, ENVIRONMENTAL SAMPLER-C [address] [place] [address], [place], [place], [address] [place] [address] , [place] - [facility] - [place] & [place] 5 08:33:00 Pulmonary emphysema 34584863 Active 2024 Hilario Woods DNP, CONVERSION MAN, ENVIRONMENTAL SAMPLER-C [address] [place] [address], [place], [place], [address] [place] [address] , [place] - [facility] - [place] & [place] 5 08:33:06 History of clinical finding in subject 162498523 Active 2024 Hilario Woods DNP, CONVERSION MAN, ENVIRONMENTAL SAMPLER-C [address] [place] [address], [place], [address] [place] [address] , [place] - [facility] - [place] & [place] 5 08:33:26 Nodule of lung 106761171 Active 2024 Hilario Woods DNP, CONVERSION MAN, ENVIRONMENTAL SAMPLER-C [address] [place] [address], [place], [address] [place] [address] , [place] - [facility] - [place] & [place] 5 08:33:48 Hyperlipid emia 21554134 Active 2021 Hilario Woods DNP, CONVERSION MAN, ENVIRONMENTAL SAMPLER-C [address] [place] [address], [place], [address] [place] [address] , [place] - [facility] - [place] & [place] 2 12:50:33 Hypothyroi dism 39187216 Active 2021 Hilario Woods DNP, CONVERSION MAN, ENVIRONMENTAL SAMPLER-C [address] [place] [address], [place], [address] [place] [address] , [place] - [facility] - [place] & [place] 2 12:50:39 History of sleeve gastrectom y 4270170575574 07 Active 2021 Hilario Woods DNP, CONVERSION MAN, ENVIRONMENTAL SAMPLER-C [address] [place] [address], [place], [address] , [place] - [facility] - [place] & [place] 2 12:51:22 Essential hypertensi on 97425566 Active 2021 Hilario Woods DNP, CONVERSION MAN, ENVIRONMENTAL SAMPLER-C [address], [place], [address] , [place] - [facility] - [place] & [place] 2 13:07:08 Iron deficiency anemia 00801174 Active 2021 Hilario Woods DNP, CONVERSION MAN, ENVIRONMENTAL SAMPLER-C [address], [place], [address] , [place] - [facility] - [place] & [place] 2 13:18:48 Heartburn 00861072 Active 2021 Hilario Woods DNP, APRN, ENVIRONMENTAL SAMPLER-C [address], [place], [address] , [place] - [facility] - [place] & [place] 2 13:39:01 Disorder of function of stomach 973199036 Active 2021 Hilario Woods DNP, APRN, ENVIRONMENTAL SAMPLER-C [address] [place] [address], [place], [address] [place] [address] , [place] - [facility] - [place] & [place] 2 13:39:09 Morbid obesity 736400610 Active 2022 Hilario Woods DNP, APRN, ENVIRONMENTAL SAMPLER-C [address] [place] [address], [place], [address] , [place] - [facility] - [place] & [place] 3 09:30:50 Pre-surger y evaluation Active 2022 Hilario Woods DNP, SANGEETA, ENVIRONMENTAL SAMPLER-C [address] [place] [address], [place], [address] [place] [address] , [place] - [facility] - [place] & [place] 3 09:32:01 Nausea 768033493 Active 2022 Hilario Woods DNP, APRN, ENVIRONMENTAL SAMPLER-C [address], [place], [address] , [place] - [facility] - [place] & [place] 3 09:36:40 Unintentio nal weight gain 3259821639700 04 Active 2023 Hilario Woods DNP, CONVERSION MAN, ENVIRONMENTAL SAMPLER-C [address], [place], [address] , [place] - [place] - [place] & [place] 4 12:27:34 Vomiting 461847300 Active 2023 Hilario Woods DNP, SANGEETA, ENVIRONMENTAL SAMPLER-C [address], [place], [address] , [place] [facility] - [facility] & [place] 4 14:01:05 Problem Notes None recorded. Procedures Surgical History Date Name Laterality Status Provider Name and Address Organization Details Recorded Time esophagogastroduodenoscopy completed Melanie Cortes [place] - [place] - [place] & [place] 3 09:26:22 Julio Cesar-en-Y gastrojejunostomy complete d Melanie Sebastian FORDE - [place] - [place] & [place] 3 08:29:39 laparoscopic sleeve gastrectomy completed Melanie Cortes [place] - [facility] - [place] & [place] 2 13:00:35 fusion of joint of c ervical spine by anterior approach for deformity of cervical spine completed Melanie Cortes [place] - [place] - [place] & [place] 2 13:01:48 revision of fusion o f cervical spine completed Melanie Cortes [place] - [place] - [place] & [place] 2 13:02:08 Stimulation of spinal cord completed Melanie Cortes [place] - [place] - [place] & [place] 2 13:02:22 esophagogastroduodenoscopy completed Melanie Cortes [place] - [place] - [place] & [place] 2 13:02:28 Colonoscopy completed Melanie Cortes [place] - [place] - [place] & [place] 2 13:02:42 Hysterectomy completed Melanie Cortes [place] - [place] - [place] & [place] 2 13:03:46 cardiac catheterization completed R ebecca Cortes [place] - [place] - [place] & [place] 13:05:15 Imaging Results None recorded. Procedure Notes [...] Vitals Date Recorded Body height Body temperature Body mass index (BMI) Body weight Heart rate Systolic blood pressure Diastolic blood pressure Provider Name and Address Organization Details Last Updated DateTime 5 160.02 cm 98 [degF] 44.7 kg/m2 997861. 43 g 78 /min 119 mm[Hg] 76 mm[Hg] Mary FORDE [facility] & [place] 5 08:11:23 Social History None recorded. Functional Status Question Answer Note LastModified by Organizat ion Details LastModified Time Do you use any illicit or recreational drugs? No [email or web address] Information not available 07/14/2022 What is your level of alcohol consumption? None [email or web address] Information not available 07/14/2022 Mental Status None [...] SNOMED-CT Code Diagnosis ICD10 Code Diagnosis Note [id number] Hilario Woods, DNP, CONVERSION MAN, ENVIRONMENTAL SAMPLER-C [facility] [address] [facility] [place] [address] 02/16/2025 07:58:17 02/16/2025 09:13:14 History of bariatric surgical procedure 162285882 Z98.84 Intentiona l weight loss 935997758 R63.8 History of gastrectomy 336524106 Z90.3 Advised qid intake 50% protein 0498-3613 calories/d y less than 100 carbs/dyLo ng [...] to correct any vitamin deficienci es. At [facility], [facility] risk of nutritional deficit 937223178 Z91.89 Essential hypertension 40857152 I10 Hyperlipidemia 25415478 E78.5 Hypothyroidism 98254341 E03.9 Iron defic iency anemia 93973978 D50.9 Heartburn 28583993 R12 GERD-patie nt was reassured. We discussed [...] appt for UGI. History of sleeve gastrectomy 2970588091 66851 Z90.3 Morbid obesity 614641482 E66.01 Unintentio nal weight gain 8505995826 79669 R63.5 Obstructiv e sleep apnea syndrome 25250309 G47.33 Pulmonary emphysema 8743 3001 J43.9 Asthma - c urrently active 399397463 J45.909 History of clinical finding in subject 800021867 Z87.891 Nodule of lung 613496662 R91.1 advised to keep all upcoming appt. Health Concerns Section Related Observation LastModified by Organization Detai ls LastModified Time None Recorded Concern Status LastModified by Organization Details LastModified Time None Recorded Payers Encounter Date Sequence Insurance Name Policy Number Policy Rojas Covered Member ID Rojas Member ID Guarantor Name 02/16/2025 1 [facility] (MEDICAID REPLACEMENT - HMO) [id number] Bushra Lundberg [id number] Bushra Lundberg Notes Date Note Type Note Provider Name and Address Organization Details Recorded Time 02/16/2025 text/html Patient presents the office today [...] troesophageal reflux: yes (is food related, manasa [place])Pt Denies : abdominal pain, prandial issues Nausea, [...] she is to follow up with her sports health club membership advisors in [address] scan. She is also seeing a proposal consultant oncologist Dr. Raymond Bowne out of [facility]. She does not have a follow [...] = 1509 kilo calories Hilario Woods, DNP, CONVERSION MAN, ENVIRONMENTAL SAMPLER-C [address] [facility], [place], [address], [facility] - [facility] - [place] & [place] 02/16/2025 08:34:53 OBGyn Episode No OBEpisode recorded.
--- NOTE | 2025-02-16 13:00 | US_ITS ---
FINAL REPORT TECHNIQUE: Sonographic images of the thyroid gland were obtained in the longitudinal and transverse planes. CLINICAL HISTORY: hypothyroid COMPARISON: 07/31/2024 FINDINGS: The right lobe measures 1.2 x 3.5 x 1.4 cm. The right lobe is heterogeneous. Stable calcification in the right lobe. The previously seen hyperechoic lower pole nodule is not well-demonstrated on this exam. The left lobe measures 1.3 x 3.0 x 1.1 cm. The left lobe is heterogeneous. There are no cystic or solid nodules. The isthmus measures 4 mm. This is normal. IMPRESSION: Previously described hyperechoic right thyroid nodule not identified on today's exam. Diffusely heterogeneous small thyroid with no new nodules identified. Reviewed, Interpreted and Dictated by Laurita Joaquin MD Transcribed by Nery Durán Authenticated and [facility]
== END 2025-02-16 23:59 | disposition home or self-care (01) ==
LOC: RAD 12:42
PROVIDERS: PCP Internal Medicine; Visit Provider Nurse Practitioner
DX: E07.89 Other specified disorders of thyroid (principal); E03.9 Hypothyroidism, unspecified; E06.9 Thyroiditis, unspecified
CPT/HCPCS: 76536

== ENCOUNTER 2025-03-19 14:36 | Outpatient (CLI) | payer MEDICAID, SELFPAY ==
--- OUTSIDE RECORDS SUMMARY | 2025-03-19 14:39 | XMS_ITS | Encounter Summary ---
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 [address] [facility] [address] [place] [address] Srinivas Melendez MD [address] [place] [address] Social History Tobacco Use Types Packs/Day Years Used Date Smoking Tobacco: Never Assessed Comments Unknown Sex and Gender Information Value Date Recorded Sex Assigned at Female 03/14/2022 5:32 PM CDT Legal Sex Female 5:32 PM CDT Gender Identity Female 03/14/2022 5:32 PM CDT Sexual Orientation Not on file documented as of this encounter Miscellaneous Notes * Cerner Conversion Note - Srinivas Melendez MD - 10/06/2020 11:01 AM EST Patient: BUSHRA ABDI Age: 55 years Sex: Female : 1965 Associated Diagnoses: None Author: CRYSTAL PETER APRN Chief Complaint neck pain, RUE pain/paresthesia Review of Systems ROS reviewed as documented in chart no change since last seen by surgeon Health Status Allergies: Allergic Reactions (Selected) No Known Medication Allergies, Allergies (1) Active Reaction No Known Medication Allergies None Documented Current medications: (Selected) Inpatient Medications Ordered Ancef: 2 Gram, 50 mL, 100 mL/Hr, IV Piggyback, PREOP Bactroban 2% topical ointment: 1 Application, Nostrils Both, 1-Time Lactated Ringers Injection intravenous solution 1,000 mL: 20 mL/Hr, IntraVENous lidocaine 1% preservative-free injectable solution: 0.5 mL, IntraDermal, 1-Time Documented Medications Documented Cymbalta 30 mg oral delayed release capsule: 1 Cap, Oral, Daily, 0 Refill(s) Lipitor 10 mg oral tablet: 1 Tab, Oral, Daily, 30 Tab, 0 Refill(s) amitriptyline 25 mg oral tablet: Tab, Oral, At Bedtime, 0 Refill(s) gabapentin 800 mg oral tablet: Tab, Oral, BID, 0 Refill(s) hydroCHLOROthiazide-lisinopril 12.5 mg-10 mg oral tablet: 1 Tab, Oral, Daily, 0 Refill(s) levothyroxine 200 mcg (0.2 mg) oral capsule: 1 Cap, Oral, Daily, 0 Refill(s) multivitamin: Daily, 0 Refill(s) omeprazole: 20 mg, Oral, BID, 0 Refill(s) oxybutynin 10 mg/24 hr oral tablet, extended release: 1 Tab, Oral, Daily, 0 Refill(s), Home Medications (9) Active amitriptyline 25 mg oral tablet , Oral, At Bedtime Cymbalta 30 mg oral delayed release capsule 30 mg = 1 Cap, Oral, Daily gabapentin 800 mg oral tablet , Oral, BID hydroCHLOROthiazide-lisinopril 12.5 mg-10 mg oral tablet 1 Tab, Oral, Daily levothyroxine 200 mcg (0.2 mg) oral capsule 200 mcg = 1 Cap, Oral, Daily Lipitor 10 mg oral tablet 10 mg = 1 Tab, Oral, Daily multivitamin , Daily omeprazole 20 mg, Oral, BID oxybutynin 10 mg/24 hr oral tablet, extended release 10 mg = 1 Tab, Oral, Daily , Medications (4) Active Scheduled: (3) ceFAZolin/D5w 2 Gram 50 mL, IV Piggyback, PREOP lidocaine 1% *PF* inj 2 mL 0.5 mL, IntraDermal, 1-Time mupirocin 2% nasal oint 1 g 1 Application, Nostrils Both, 1-Time Continuous: (1) lactated ringers 1,000 mL 1,000 mL, IntraVENous, 20 mL/Hr PRN: (0) Problem list: All Problems PN (peripheral neuropathy) / SNOMED CT 260513078 / Confirmed Neck pain / SNOMED CT 311336088 / Confirmed Hypothyroid / SNOMED CT 69678476 / Confirmed HTN (hypertension) / SNOMED CT 8635061331 / Confirmed HLD (hyperlipidemia) / SNOMED CT 00720613 / Confirmed GERD (gastroesophageal reflux disease) / SNOMED CT 696973380 / Confirmed Depression / SNOMED CT 60670534 / Confirmed Back pain / SNOMED CT 416544925 / Confirmed At risk for sleep apnea / IMO 08106437 / Confirmed Anxiety / SNOMED CT 80947356 / Confirmed, Active Problems (10) Anxiety At risk for sleep apnea Back pain Depression GERD (gastroesophageal reflux disease) HLD (hyperlipidemia) HTN (hypertension) Hypothyroid Neck pain with RUE radiculopathy and paresthesia PN (peripheral neuropathy) Histories Past Medical History: No active or resolved past medical history items have been selected or recorded. Family History: No family history items have been selected or recorded. Procedure history: partial hysterectomy. gastric sleeve. colonoscopy. EGD. Social History Social & Psychosocial Habits Tobacco 10/05/2020 Smoking Status Former smoker, quit more . Physical Examination VS/Measurements Vital Signs/Vital Measures 10/06/2020 9:57 EST Systolic BP, Arterial Line 1 133 mmHg Diastolic BP, Arterial Line 1 68 mmHg Temperature Source Temporal artery scanning Temperature Mode Fahrenheit Temperature, Fahrenheit 98.7 Deg F Heart Rate Monitored 63 bpm Respiratory Rate 20 Breaths/Min Oxygen Saturation 99 % , Vitals Signs (last 24 hrs) Last Charted Minimum Maximum Temp 98.7 (OCT 06 09:57) 98.7 (OCT 06 09:57) 98.7 (OCT 06 09:57) Mon HR 63 (OCT 06 09:57) 63 (OCT 06 09:57) 63 (OCT 06 09:57) Resp Rate 20 (OCT 06 09:57) 20 (OCT 06 09:57) 20 (OCT 06 09:57) SpO2 99 (OCT 06 09:57) 99 (OCT 06 09:57) 99 (OCT 06 09:57) , Measurements from flowsheet : Measurements 10/05/2020 16:24 EST Height Source Measured Height Entry Format [place] Height/Length, NAURUAN (ft) 5 ft Height/Length NAURUAN 3 Inch CLINICALHEIGHT 160.02 cm [place] Body Weight 52 kg Weight Source Standing scale Weight Entry Format [place] Weight Amharic lb 244 lb CLINICALWEIGHT 110.91 kg Body Surface Area (BSA) 2.11 m2 Body Mass Index 43.3 kg/m2 >HHI General: Alert and oriented, No acute distress, morbid obesity. Eye: Pupils are equal, round and reactive to light, Extraocular movements are intact, glasses. HENT: Normocephalic, Normal hearing. Neck: Supple, Non-tender. Respiratory: Lungs are clear to auscultation, Respirations are non-labored. Cardiovascular: Normal rate, Regular rhythm, No murmur, No gallop, No edema. Gastrointestinal: Soft, Non-tender. Genitourinary: No costovertebral angle tenderness. Lymphatics: No lymphadenopathy neck, axilla, groin. Musculoskeletal: painful ROM neck, RUE weakness. Integumentary: Warm, Dry, [place]. Neurologic: Alert, Oriented. Psychiatric: Cooperative, Appropriate mood & affect. Review / Management Results review: No qualifying data available. Impression and Plan Condition: Stable. documented in this encounter Plan of Treatment Not on file documented as of this encounter Visit Diagnoses Not on filedocumented in this encounter
--- OUTSIDE RECORDS SUMMARY | 2025-03-19 14:39 | XMS_ITS | Encounter Summary ---
Author Organization [employer] ([place], [place], [place], [place]) Address [address] [place] [address] Care Team Providers Care Talent Acquisition Assistant Name Role Phone Unavailable Primary Care Provider Unavailabl e Encounter Details Date Type Department Care Team (Late st Contact Info) Description 04/06/2021 Transcribed Document [facility] [facility] at [facility] [place] [address] ProviderPat MD [address] [place] [address] Social History Tobacco Use Types Packs/Day Years Used Date Smoking Tobacco: Never Assessed Comments Unknown Sex and Gender Information Value Date Recorded Sex Assigned at Female 03/14/2022 5:32 PM CDT Legal Sex Female 5:32 PM CDT Gender Identity Female 03/14/2022 5:32 PM CDT Sexual Orientation Not on file documented as of this encounter Miscellaneous Notes * Cerner Conversion Note - Pat ProviderMD - 04/06/2021 2:00 AM CDT Spiritual Care Assessment Entered On: 04/06/2021 11:17 EDT Performed On: 04/06/2021 2:00 EDT by ARMIN LAL General Information Referred by : Patient Referral Reason Comment : PreSurgery visit Ministry Provided to : Patient, Family/Significant other Jain Preference : Yarsanism ([employer]) ARMIN LAL - 04/06/2021 11:16 EDT Interventions Emotional Support : Empathic/Engaged listening, Family/Significant other supported, Feelings expressed Spiritual and Jain : Prayer shared, Spiritual/Jain support provided Change, Adjustment and Loss : Relationships/Community/Support system discussed ARMIN LAL - 04/06/2021 11:16 EDT Outcomes Affect/Behavior Changed : Comforted Appreciation Expressed : Yes Thoughts, Feelings and Emotions Exp. : Yes Supportive Relationships Described : Family, Voodoo family HEAD, ARMIN - 04/06/2021 11:16 EDT documented in this encounter Plan of Treatment Not on file documented as of this encounter Visit Diagnoses Not on filedocumented in this encounter
--- OUTSIDE RECORDS SUMMARY | 2025-03-19 14:39 | XMS_ITS | Encounter Summary ---
Author Organization [employer] ([place], [place], [place], [place]) Address [address] [place] [address] Care Team Providers Care Painting Manager Name Role Phone Unavailable Primary Care Provider Unavailabl e Encounter Details Date Type Department Care Team (Late st Contact Info) Description 10/06/2020 Transcribed Document [facility] [place] [facility] [place] [address] ProviderPat MD [facility] [place] [address] Social History Tobacco Use Types [...] Cerner Conversion Note - Pat ProviderMD - 10/06/2020 12:[address] MANAGER [facility] Main OR IntraOp Summary Primary Physician: MARION COBOS MD-SNU Finalized Date/Time: 10/07/20 13:51:00 Pt. Name: JINMELANIEO.B./Sex: 1965 Female Med Rec #: [id number] Physician: MARION COBOS MD-SNU Financial #: [id number] Pt. Type: O Room/Bed: Admit/Disch: 10/06/20 08:45:00 - 10/06/20 16:43:00 Institution: [facility] IntraOp Case Attendance Entry 1 Entry 2 Entry 3 Case Attendee MARION COBOS WASSON, SANDRA D, RN GULLETTE, NELSON, SCRUB MD-SNU TECH Role Performed Surgeon/Proceduralist, Etl Bi Developer, First Scrub, First First Time In 10/06/20 11:57:00 10/06/20 11:57:00 10/06/20 11:57:00 Time Out 10/06/20 13:18:00 10/06/20 13:18:00 10/06/20 13:18:00 Procedure Cervical Discectomy Cervical Discectomy Cervical Discectomy Fusion Anterior Fusion Anterior Fusion Anterior Other Attendee Superficial Wound Closed By: Last Modified By: CLARK JAUREGUI, RN CLARK JAUREGUI, RN CLARK JAUREGUI, RN 10/06/20 13:22:08 10/06/20 13:22:08 10/06/20 13:22:08 Entry 4 Entry 5 Entry 6 Case Attendee HEBERT GAMBOA JOSEPH A, VITO ELIAS MD-ANS Role Performed Physician technical staff assistant WARDROBE SPECIALIST/Nurse Order Desk Clerk Anesthesiologist of Record Time In 10/06/20 11:57:00 10/06/20 11:57:00 10/06/20 11:57:00 Time Out 10/06/20 13:18:00 10/06/20 13:18:00 10/06/20 13:18:00 Procedure Cervical Discectomy Cervical Discectomy Cervical Discectomy Fusion Anterior Fusion Anterior Fusion Anterior Other Attendee Superficial Wound Closed By: Last Modified By: CLARK JAUREGUI, RN CLARK JAUREGUI, RN CLARK JAUREGUI, RN 10/06/20 13:22:08 10/06/20 13:22:08 10/06/20 13:22:08 Entry 7 Entry 8 Entry 9 Case Attendee OTHER, ATTENDEE #1 JEROMY SAINI, RN Robyn Kumar, Diagnostic Tractor Technician Role Performed Student Etl Bi Developer, Second Vp Product Management Time In 10/06/20 11:57:00 10/06/20 11:57:00 10/06/20 11:57:00 Time Out 10/06/20 13:18:00 10/06/20 12:30:00 10/06/20 13:18:00 Procedure Cervical Discectomy Cervical Discectomy Cervical Discectomy Fusion Anterior Fusion Anterior Fusion Anterior Other Attendee JOSHUA MARTINES ( STUDENT) Superficial Wound Closed By: Last Modified By: CLARK JAUREGUI, RN CLARK JAUREGUI, RN CLARK JAUREGUI, RN 10/06/20 09:59:39 10/06/20 12:44:32 10/06/20 13:22:08 Entry 10 Case Attendee OTHER, ATTENDEE #2 Role Performed Vendor Time In 10/06/20 11:57:00 Time Out 10/06/20 13:18:00 Procedure Cervical Discectomy Fusion Anterior Other Attendee NARESH WOODARD Superficial Wound Closed By: Last Modified By: CLARK JAUREGUI, SAYDA 10/06/20 12:44:32 [facility] IntraOp Case Attendance Audit 10/06/20 13:22:08 Animal Care Supervisor: WASSONSY Modifier: WASSONSY 1 <+> Time Out 1 <*> Procedure Cervical Discectomy Fusion Anterior 2 <+> Time Out 2 <*> Procedure Cervical Discectomy Fusion Anterior 3 <+> Time Out 3 <*> Procedure Cervical Discectomy Fusion Anterior 4 <+> Time Out 4 <*> Procedure Cervical Discectomy Fusion Anterior 5 <+> Time Out 5 <*> Procedure Cervical Discectomy Fusion Anterior 6 <+> Time Out 6 <*> Procedure Cervical Discectomy Fusion Anterior 7 <+> Time Out 7 <*> Procedure Cervical Discectomy Fusion Anterior 8 <*> Procedure Cervical Discectomy Fusion Anterior 9 <+> Time In 9 <+> Time Out 9 <*> Procedure Cervical Discectomy Fusion Anterior 10 <+> Time In 10 <+> Time Out 10 <*> Procedure Cervical Discectomy Fusion Anterior 10/06/20 12:44:32 Animal Care Supervisor: WASSONSY Modifier: WASSONSY 8 <+> Time Out 8 <*> Procedure Cervical Discectomy Fusion Anterior <+> 9 Case Attendee <+> 9 Role Performed <+> 9 Procedure <+> 10 Case Attendee <+> 10 Role Performed <+> 10 Procedure <+> 10 Other Attendee 10/06/20 12:15:00 Animal Care Supervisor: WASSONSY Modifier: WASSONSY 1 <*> Procedure Cervical Discectomy Fusion Anterior 2 <*> Procedure Cervical Discectomy Fusion Anterior 3 <*> Procedure Cervical Discectomy Fusion Anterior 4 <*> Procedure Cervical Discectomy Fusion Anterior 5 <*> Procedure Cervical Discectomy Fusion Anterior 6 <*> Procedure Cervical Discectomy Fusion Anterior 7 <*> Procedure Cervical Discectomy Fusion Anterior 8 <+> Time In 8 <*> Procedure Cervical Discectomy Fusion Anterior 10/06/20 12:14:37 Animal Care Supervisor: WASSONSY Modifier: WASSONSY 1 <+> Time In 1 <*> Procedure Cervical Discectomy Fusion Anterior 2 <+> Time In 2 <*> Procedure Cervical Discectomy Fusion Anterior 3 <+> Time In 3 <*> Procedure Cervical Discectomy Fusion Anterior 4 <+> Time In 4 <*> Procedure Cervical Discectomy Fusion Anterior 5 <+> Time In 5 <*> Procedure Cervical Discectomy Fusion Anterior 6 <+> Time In 6 <*> Procedure Cervical Discectomy Fusion Anterior 7 <+> Time In 7 <*> Procedure Cervical Discectomy Fusion Anterior <+> 8 Case Attendee <+> 8 Role Performed <+> 8 Procedure [facility] IntraOp Case Times Entry 1 Patient In Room Time 10/06/20 11:57:00 Out Room Time 10/06/20 13:18:00 Anesthesia Start Time 10/06/20 11:57:00 Stop Time 10/06/20 13:19:00 Surgery / Procedure Times Start Time 10/06/20 12:27:00 Stop Time 10/06/20 13:12:00 Last Modified By: CLARK JAUREGUI RN 10/06/20 13:13:09 [facility] IntraOp Case Times Audit 10/06/20 13:22:05 Animal Care Supervisor: WASSONSY Modifier: WASSONSY <+> 1 Out Room Time <+> 1 Stop Time 10/06/20 13:13:09 Animal Care Supervisor: WASSONSY Modifier: WASSONSY <+> 1 Stop Time 10/06/20 12:28:55 Animal Care Supervisor: WASSONSY Modifier: WASSONSY <+> 1 Start Time [facility] IntraOp Cautery Entry 1 Entry 2 ESU Identification Cautery Type Monopolar ESU BiPolar ESU Cautery Type Comments ID Number [id number] ID Type Hospital Number Hospital Number Cautery Settings Cut Setting 40 8 Coag Setting 40 40 Blend Setting Bipolar Setting Argon Setting Argon Alex ESU Grounding Pad Ground Pad Type Adult Grounding Pad Type Comment Grounding Pad Site Left thigh Grounding Pad Site WNL Comment Grounding Pad JEROMY SAINI RN Applied By Grounding Pad Site Warm, Dry, Intact Skin Condition Before Cautery Site Skin Condition WDL Before Comment Grounding Pad Site Unchanged Skin Condition After Cautery Site Skin Condition WDL After Comment Last Modified By: CLARK JAUREGUI, CLARK WATSON RN 10/06/20 12:19:57 10/06/20 12:19:57 [facility] IntraOp Cautery Audit 10/06/20 14:49:40 Animal Care Supervisor: WASSONSY Modifier: WASSONSY 1 <*> Grounding Pad Site Right thigh 10/06/20 12:46:50 Animal Care Supervisor: WASSONSY Modifier: WASSONSY 1 <*> Cautery Type BiPolar ESU 1 <*> Cut Setting 40 1 <*> Bipolar Setting 40 1 <+> Grounding Pad Site 1 <*> ID Number [id number] 1 <*> Grounding Pad Applied By CLARK JAUREGUI RN 2 <*> Cautery Type Monopolar ESU 2 <*> Cut Setting 40 2 <*> ID Number [id number] [facility] IntraOp Communication Entry 1 Communication To Family/Significant other Comment START Communication By JEROMY SAINI RN Date and Time 10/06/20 12:28:00 Last Modified By: CLARK JAUREGUI RN 10/06/20 12:14:46 [facility] IntraOp Communication Audit 10/06/20 12:28:37 Animal Care Supervisor: WASSONSY Modifier: WASSONSY <+> 1 Date and Time [facility] IntraOp Counts Verification Entry 1 Procedure Cervical Discectomy Fusion Anterior Count Info Count Type Sponge, Sharps Counts Verification Baseline/pre-procedure Sequence Count Results Correct, surgeon notified Counts Performed By Count Performed By NELSON NGUYEN SCRUB (Scrub) TECH Count Performed By CLARK JAUREGUI RN (RN) Last Modified By: CLARK JAUREGUI RN 10/06/20 12:46:58 [facility] IntraOp Counts Verification Audit 10/06/20 12:46:58 Animal Care Supervisor: WASSONSY Modifier: WASSONSY 1 <*> Procedure Cervical Discectomy Fusion Anterior 1 <*> Count Performed By (RN) NELSON NGUYEN SCRUB TECH [facility] IntraOp Counts Final Entry 1 Procedure Cervical Discectomy Fusion Anterior Final Count Info Count Type Sponge, Sharps, Miscellaneous Counts Verification Skin Closure/end of Sequence procedure Count Results Correct, surgeon notified Counts Performed By Count Performed By GULLETTE, NELSON, SCRUB (Scrub) TECH Count Performed By CLARK JAUREGUI RN (RN) Last Modified By: CLARK JAUREGUI RN 10/06/20 13:07:53 [facility] IntraOp Departure from OR Entry 1 Integumentary Assessment Integumentary WDL Assessment WDL Transfer/Handoff Transfer to PACU Phase I Handoff Method Bedside/Face to face, Phone call Handoff Reported to Jon Ruth RN Post-op Transport Stretcher/Gurney Via Patient Transport HEBERT GAMBOA, Accompanied by BERNICE BRUCE CRNA Last Modified By: CLARK JAUREGUI RN 10/06/20 12:47:18 [facility] IntraOp Departure from OR Audit 10/06/20 12:47:18 Animal Care Supervisor: HANG Modifier: WASSONSY <+> 1 Patient Transport Accompanied by <+> 1 Handoff Reported to [facility] IntraOp Dressing and Packing Entry 1 Type Dressing Location OP SITE Wound Dressing Item Steristrip, Other Applied By HEBERT GAMBOA Other Comments MASTISOL, STERISTRIPS, COVADERM Last Modified By: CLARK JAUREGUI RN 10/06/20 12:47:50 General Comments: COVERDERM [facility] IntraOp Dressing and Packing Audit 10/06/20 12:47:50 Animal Care Supervisor: HANG Modifier: WASSONSY 1 <*> Location 1 <*> Wound Dressing Item 1 <*> Applied By HEBERT GAMBOA 1 <*> Other Comments [facility] IntraOp Fire Risk Assessment Entry 1 Fire Info Surgical Site or 1- Yes Incision Above the Xyphoid Open O2 Source 0- No (Mask or Cannula) Available Ignition 1- Yes (ESU, Laser, Light Source) Fire Risk 2 Assessment Score Fire Score Fire Risk Yes Assessment Complete Fire Risk CLARK JAUREGUI synthetic department supervisor Verified By Fire Risk 10/06/20 11:56:00 Assessment Verified Date/Time Fire Risk Standard Fire Yes Safety Precautions Followed Last Modified By: CLARK JAUREGUI RN 10/06/20 12:15:32 [facility] IntraOp Fire Risk Assessment Audit 10/06/20 12:48:04 Animal Care Supervisor: HANG Modifier: WASSONSY 1 <*> Fire Risk Assessment Verified By JEROMY SAINI RN 1 <*> Fire Risk Assessment Verified 10/06/20 12:15:00 Date/Time 10/06/20 12:28:03 Animal Care Supervisor: WASSONSY Modifier: WASSONSY <+> 1 Fire Risk Assessment Complete [facility] IntraOp General Case Hydropulper Operator 1 Case Information OR OR 11 [facility] Case Level 1 Room Verified Yes Wound Class I - Clean Specialty SN Neurosurgery Anesthesia Type General ASA Class 3 Diagnosis Preop Diagnosis CERVICAL SPONDYLOSIS WITH MYELOPATHY Postop Same As Preop No Postop Diagnosis PLEASE SEE MD NOTES Last Modified By: CLARK JAUREGUI RN 10/06/20 12:16:32 [facility] IntraOp General Case Data Audit 10/06/20 12:16:32 Animal Care Supervisor: HANG Modifier: WASSONSY 1 <*> OR OR 09 [facility] 1 <+> ASA Class 1 <+> Anesthesia Type 1 <+> Postop Same As Preop 1 <+> Postop Diagnosis 1 <+> Room Verified [facility] IntraOp Implant Log Entry 1 Entry 2 Entry 3 Type Tissue Implant Implant (Synthetic) Implant (Synthetic) (Biologic) Implant Log Implant Type Hardware Hardware Tissue Implant Type Bone Implant BONE VIVIGEN FORMABLE CAGE EIT CIF H 5MM 8D CAGE EIT CIF H 5MM 8D Identification [id number] Description Implant Quantity 1 1 1 Implant Site OP SITE OP SITE OP SITE Implant Identification Model Number Implant [id number] Identification Serial Number Implant [id number] Identification Lot Number Implant Lifenet:Lifenet J&J:Depuy:Depuy Spine J&J:Depuy:Depuy Spine Identification Transplant Srv Commercial Portfolio Manager Name: Implant [id number] Identification Catalog Number Implant Size Implant Has an Yes Yes Yes Expiration Date Implant Expiration 09/14/21 11/14/23 11/14/23 Date Wasted Radioactive Material Time Implanted Tissue Implant Continue for Tissue Implant Documentation Tissue Identification Number Graft Prep Per Commercial Portfolio Manager Instructions: Tissue Preparation Method: Reconstitution Solution: Reconstitution Solution Lot Number Reconstitution Solution Expiration Date: Thawing Solution Thawing Solution Lot Number Thawing Solution Expiration Date Preparation Materials, Other Preparation Materials, Other Lot Number Preparation Materials, Other Expiration Date Tissue Prepared/Processed By Commercial Portfolio Manager Paperwork Completed Implant Type Comment Last Modified By: CLARK JAUREGUI RN WASSON, SANDRA D RN CLARK JAUREGUI RN 10/06/20 12:52:08 10/06/20 12:57:34 10/06/20 12:58:46 Entry 4 Entry 5 Type Implant (Synthetic) Implant (Synthetic) Implant Log Implant Type Hardware Hardware Tissue Implant Type Implant PLT ANT SKYLN HYBRD SCR SKYLN VARI SD Identification [id number] Description Implant Quantity 1 6 Implant Site OP SITE OP SITE Implant Identification Model Number Implant Identification Serial Number Implant Identification Lot Number Implant J&J:Depuy:Depuy Spine J&J:Depuy:Depuy Spine Identification Commercial Portfolio Manager Name: Implant [id number] Identification Catalog Number Implant Size Implant Has an Expiration Date Implant Expiration Date Wasted Radioactive Material Time Implanted Tissue Implant Continue for Tissue Implant Documentation Tissue Identification Number Graft Prep Per Commercial Portfolio Manager Instructions: Tissue Preparation Method: Reconstitution Solution: Reconstitution Solution Lot Number Reconstitution Solution Expiration Date: Thawing Solution Thawing Solution Lot Number Thawing Solution Expiration Date Preparation Materials, Other Preparation Materials, Other Lot Number Preparation Materials, Other Expiration Date Tissue Prepared/Processed By Commercial Portfolio Manager Paperwork Completed Implant Type Comment Last Modified By: CLARK JAUREGUI, CLARK WATSON RN 10/06/20 13:13:00 10/06/20 13:13:00 [facility] IntraOp Implant Log Audit 10/06/20 13:13:00 Animal Care Supervisor: WASSONSY Modifier: WASSONSY <+> 4 Implant Identification Description <+> 4 Implant Identification Commercial Portfolio Manager Name: <+> 4 Implant Site <+> 4 Implant Quantity <+> 4 Implant Identification Catalog Number <+> 4 Implant Type <+> 4 Type <+> 5 Implant Identification Description <+> 5 Implant Identification Commercial Portfolio Manager Name: <+> 5 Implant Site <+> 5 Implant Quantity <+> 5 Implant Identification Catalog Number <+> 5 Implant Type <+> 5 Type 10/06/20 12:58:46 Animal Care Supervisor: WASSONSY Modifier: WASSONSY <+> 3 Implant Identification Description <+> 3 Implant Identification Lot Number <+> 3 Implant Identification Commercial Portfolio Manager Name: <+> 3 Implant Expiration Date <+> 3 Implant Site <+> 3 Implant Quantity <+> 3 Implant Identification Catalog Number <+> 3 Implant Type <+> 3 Implant Has an Expiration Date <+> 3 Type 10/06/20 12:57:34 Animal Care Supervisor: WASSONSY Modifier: WASSONSY <+> 2 Implant Identification Description <+> 2 Implant Identification Lot Number <+> 2 Implant Identification Commercial Portfolio Manager Name: <+> 2 Implant Expiration Date <+> 2 Implant Site <+> 2 Implant Quantity <+> 2 Implant Identification Catalog Number <+> 2 Implant Type <+> 2 Implant Has an Expiration Date <+> 2 Type [facility] IntraOp Intraoperative Assessment Entry 1 Handoff Method Bedside/Face to face, Online nursing summary Valid History / Yes Physical in Chart Preoperative Yes Checklist Reviewed/Evaluated Allergies Reviewed Yes Patient is Latex No Sensitive Isolation Not applicable Precautions Noted Level of WDL Consciousness (WDL = Alert, Oriented to Person, Place, and Time) Skin Assessment No Verified Present Upon IVs Arrival to OR Last Modified By: CLARK JAUREGUI RN 10/06/20 12:48:18 [facility] IntraOp Intraoperative Assessment Audit 10/06/20 12:48:18 Animal Care Supervisor: HANG Modifier: WASSONSY 1 <*> Skin Assessment Verified Yes 1 <*> Handoff Method Bedside/Face to face, Phone call [facility] Intra Intraoperative Equipment Entry 1 Type Equipment Equipment Equipment Gk Suction System ID Number [id number] Setting 180 MM HG Intraop Monitoring Electrocardiogram Five lead placement (ECG) Electrode Placement Blood Pressure Non-Invasive BP Device Source Blood Pressure Arm, left lower Location Pulse Oximeter Hand, right Probe Site Antiembolic Devices Antiembolic Devices Sequential compression device, knee high Antiembolic Device Bilateral Location Antiembolic Device 80075 ID Number Scopes Photo/Video Documentation Photo No Video No Last Modified By: CLARK JAUREGUI RN 10/06/20 12:49:15 [facility] IntraOp Intraoperative Equipment Audit 10/06/20 12:49:15 Animal Care Supervisor: HANG Modifier: WASSONSY <+> 1 Photo <+> 1 Video <+> 1 ID Number <+> 1 Setting <+> 1 Electrocardiogram (ECG) Electrode Placement <+> 1 Blood Pressure Location <+> 1 Pulse Oximeter Probe Site <+> 1 Blood Pressure Source <+> 1 Antiembolic Device ID Number [facility] IntraOp Medication Admin Entry 1 Entry 2 Entry 3 Medication/Irrigant Bacitracin 50,00units lidocaine 1% w/ thrombin 5000units powder vial epinephrine 1:100,000 topical powder - 30ml vial - [id number] Combo Med List Time Administered Route of IRRIGATION LOCAL TOPICAL Administration Dose Dose 60730 10 5000 Unit of Measure units ml units Volume Administered By MARION COBOS, MARION COBOS MD-SNU MD-SNU Procedure Irrigation Irrigant Volume In Irrigant Volume Out Last Modified By: CLARK JAUREGUI, CLARK WATSON RN WASSON, SANDRA D, RN 10/06/20 12:31:00 10/06/20 12:31:00 10/06/20 12:31:00 Entry 4 Medication/Irrigant SPNG SURGFOAM [id number] Combo Med List Time Administered Route of TOPICAL Administration Dose Dose Unit of Measure Volume Administered By MARION COBOS MD-SNU Procedure Irrigation Irrigant Volume In Irrigant Volume Out Last Modified By: CLARK JAUREGUI RN 10/06/20 12:31:00 [facility] IntraOp Patient Positioning Entry 1 Procedure Cervical Discectomy Fusion Anterior Body Position Prone Left Arm Position Tucked and padded at side Right Arm Position Tucked and padded at side Left Leg Position Elevated Right Leg Position Elevated Feet Uncrossed Yes Pressure Points Yes Checked Positioning Devices Pillows, Head Rest, Pad, Elbow, Roll, Shoulder, Safety Strap, Thighs Positioned By MARION COBOS MD-SNU, CLARK JAUREGUI, SAYDA, BERNICE BRUCE CRNA, JEROMY SAINI RN Position Verified Positioning Yes Verified by Anesthesia Positioning Yes Verified by Surgeon Last Modified By: CLARK JAUREGUI RN 10/06/20 12:26:54 [facility] IntraOp Patient Positioning Audit 10/06/20 12:50:11 Animal Care Supervisor: WASSONSY Modifier: WASSONSY 1 <*> Procedure Cervical Discectomy Fusion Anterior 1 <*> Positioning Devices Arm Board, Pad, Arm, Pillows [facility] IntraOp Sign In Entry 1 Patient, Site, Yes Procedure Identified Surgical Consent No, unable to assess - Confirmed Emergent case Relevant Surgical Yes Documents Available Surgical Site N/A Marked by person performing procedure Anesthesia Machine Yes Check Completed Medication Checks Yes Completed Allergies Yes Airway Difficult Yes Airway/Aspiration Risk Difficult Yes Airway/Aspiration Intervention Equipment Available Blood Loss Risk Yes Blood Loss Yes Intervention Equipment Prepared and Ready Blood Identifiers Yes Verified Per Policy Hypothermia Risk Yes Warming Measures Yes Taken Last Modified By: CLARK JAUREGUI RN 10/06/20 12:50:24 [facility] IntraOp Sign In Audit 10/06/20 12:50:24 Animal Care Supervisor: WASTONYSY Modifier: WASSONSY 1 <*> Allergies No 1 <*> Blood Identifiers Verified Per Not applicable Policy [facility] IntraOp Sign Out Entry 1 RN Confirmation Surgical Yes Procedure(s) Identified Instrument, Sponge Yes and Sharps Counts Correct/Documented Equipment Problems Yes Documented Specimen Labeled N/A Correctly Urinary Catheter N/A Documented in IView Roy Patient Yes Recovery Concerns Reviewed with Anesthesia Provider, Surgeon and RN Roy Patient Yes Management Concerns Reviewed with Anesthesia Provider, Surgeon and RN Safety Checklist Yes Elements Complete? RN Sign Out CLARK JAUREGUI RN Signature RN Sign Out 10/06/20 13:18:00 Signature Date/Time Plan of Care Outcome - Fire Risk OUTCOME STATEMENT: Goal met Patient is free from injury related to surgical fire Plan of Care Outcome - Pt Positioning OUTCOME STATEMENT: Goal met Absence of signs and symptoms of positioning injury. Plan of Care Outcome - Skin Prep OUTCOME STATEMENT: Goal met Intraoperative care is consistent with measures to prevent infection Plan of Care Outcome - Xray/Images OUTCOME STATEMENT: Goal met Absence of observable signs or symptoms of radiation injury Plan of Care Outcome - Counts OUTCOME STATEMENT: Goal met Absence of signs and symptoms of injury related to extraneous objects Last Modified By: CLARK JAUREGUI RN 10/06/20 12:29:20 [facility] IntraOp Sign Out Audit 10/06/20 13:22:22 Animal Care Supervisor: WASTONYSY Modifier: WASSONSY <+> 1 RN Sign Out Signature Date/Time 10/06/20 12:51:21 Animal Care Supervisor: WASSONSY Modifier: WASSONSY 1 <*> Specimen Labeled Correctly Yes 1 <+> RN Sign Out Signature [facility] IntraOp Skin Prep Entry 1 Procedure Cervical Discectomy Fusion Anterior Prescribed Yes Pre-Surgical Prep Completed Prep Area NECK AFTER ALCOHOL AND HIBICLENS PREP PER DR COBOS Intraop Prep Integumentary WDL Assessment WDL Prep Agents Alcohol, Chlorhexadine gluconate, DuraPrep Prep by JEROMY SAINI, RN Hair Removal Methods No hair removal performed Last Modified By: CLARK JAUREGUI RN 10/06/20 12:17:22 [facility] IntraOp Skin Prep Audit 10/06/20 12:51:04 Animal Care Supervisor: WASTONYSY Modifier: WASSONSY 1 <*> Prep Area NECK 1 <*> Procedure Cervical Discectomy Fusion Anterior 1 <*> Prep by MARION COBOS MD-[facility] IntraOp Surgical Procedures Entry 1 Procedure Cervical Discectomy Fusion Anterior Additional (C4-6 ACDF) Procedure Description Primary Procedure Yes Primary Surgeon MARION COBOS MD-SNU Start 10/06/20 12:27:00 Stop 10/06/20 13:12:00 Anesthesia Type General Specialty SN Neurosurgery Wound Class I - Clean Last Modified By: CLARK JAUREGUI RN 10/06/20 12:19:31 [facility] IntraOp Surgical Procedures Audit 10/06/20 13:13:12 Animal Care Supervisor: WASSONSY Modifier: WASSONSY <+> 1 Stop 10/06/20 12:29:03 Animal Care Supervisor: WASSONSY Modifier: WASSONSY <+> 1 Start [facility] IntraOp Temp Regulation Devices Entry 1 Temp Regulation Temperature Forced Air Warming Regulation Device device Temperature 89000 Regulation Device Serial/Unit Number Temperature Lower body Regulation Site Temperature Device 43 C Setting Temperature BERNICE BRUCE CRNA Regulation Device Applied by Last Modified By: CLARK JAUREGUI RN 10/06/20 12:43:51 [facility] IntraOP Time Out Entry 1 Procedure to be Cervical Discectomy Performed Fusion Anterior Time Out Time Out Pause Time 10/06/20 12:26:00 All activity Yes suspended (unless life threatening emergency) Team Verbally Correct patient Confirms Information identity, Correct side and site are marked, Consent form is present and accurate, Agreement on the procedure to be done, Correct patient position, Relevant images/results properly labeled/appropriately displayed, Confirm antibiotics have been administered, Confirm the skin prep has dried, Confirm prosthesis/implant/devic e is present, Performed in location of procedure after prepped/draped Antibiotic Yes Prophylaxis Administered Or In Progress Within the Last 60 Minutes Beta Michelle N/A Administered Venous Yes Thromboembolism Prophylaxis Required Anticipated Critical Events Surgeon None expected Anesthesia Provider None expected Nursing Assures Sterility of instruments, Equipment concerns or issues Essential Imaging Yes Labeled and Displayed Last Modified By: CLARK JAUREGUI RN 10/06/20 12:28:49 [facility] IntraOP Time Out Audit 10/06/20 12:28:49 Animal Care Supervisor: WASTONYSY Modifier: WASSONSY 1 <+> Time Out Pause Time 1 <*> Procedure to be Performed Cervical Discectomy Fusion Anterior 10/06/20 12:27:48 Animal Care Supervisor: HANG Modifier: HANG 1 <*> Beta Michelle Administered N/A 1 <*> All activity suspended (unless life Yes threatening emergency) 1 <*> Venous Thromboembolism Prophylaxis Yes Required 1 <+> Antibiotic Prophylaxis Administered Or In Progress Within the Last 60 Minutes 1 <*> Surgeon None expected 1 <*> Anesthesia Provider None expected 1 <*> Nursing Assures Sterility of instruments, Equipment concerns or issues 1 <*> Essential Imaging Labeled and Yes Displayed 1 <*> Procedure to be Performed Cervical Discectomy Fusion Anterior 1 <*> Team Verbally Confirms Information Correct patient identity, Correct side and site are marked, Consent form is present and accurate, Agreement on the procedure to be done, Correct patient position, Relevant images/results properly labeled/appropriately displayed, Confirm antibiotics have been administered, Confirm the skin prep has dried, Confirm prosthesis/implant/device is present, Performed in location of procedure after prepped/draped [facility] IntraOp X-Ray and Images Entry 1 X-Ray/Imaging Type Fluoroscopy Fluoroscopy Type C-Arm Site OP SITE Equine Internship Name Robyn Kumar, Diagnostic Tractor Technician Last Modified By: CLARK JAUREGUI RN 10/06/20 12:44:50 Case Comments <None> Finalized By: BO ALEX Document Signatures Signed By: CLARK JAUREGUI RN 10/06/20 14:49 CLARK JAUREGUI RN 10/06/20 13:22 BO ALEX 10/07/20 13:51 Unfinalized History Date/Time Username Reason for Unfinalizing Freetext Reason for Unfinalizing 10/06/20 14:49 HANG Correct Documentation 10/07/20 13:48 TOMAS Correct Billing Electronically signed by [facility] Conversion Manager Editorial Cerner at 01/07/2023 7:36 PM CDT documented in this encounter Plan of Treatment Not on file documented as of this encounter Visit Diagnoses Not on filedocumented in this encounter
--- OUTSIDE RECORDS SUMMARY | 2025-03-19 14:39 | XMS_ITS | Encounter Summary ---
Author Organization [facility] ([place], [place], [place], [place]) Address [address] [place] [address] Care Team Providers Care Engineering Program Manager Name Role Phone Unavailable Primary Care Provider Unavailabl e Encounter Details Date Type Department Care Team (Late st Contact Info) Description 10/06/2020 Transcribed Document [facility] [place] Family Medicine [address] [place] [address] ProviderPat MD [address] [place] [address] Social History Tobacco Use Types [...] - Pat ProviderMD - 10/06/2020 12:27 PM [facility] Main OR PostOp Summary Primary Physician: MARION COBOS MD-SNU Finalized Date/Time: 10/06/20 17:50:53 Pt. Name: BUSHRA LUNDBERG D.O.B./Sex: 1965 Female Med Rec #: [id number] Physician: MARION COBOS MD-SNU Financial #: [id number] Pt. Type: O Room/Bed: Admit/Disch: 10/06/20 08:45:00 - Institution: [facility] Main OR PostOp Case Times Entry 1 In PACU II 10/06/20 15:34:00 Ready for PACU II 01/20/21 16:15:00 Discharge Discharge from PACU 10/06/20 16:43:00 II Last Modified By: JAYDA PAUL RN 10/06/20 17:46:19 Finalized By: JAYDA PAUL RN Document Signatures Signed By: JAYDA PAUL RN 10/06/20 17:50 Electronically signed by Ashwin [facility] Conversion Lpn Rn Hospice Cerner at 01/07/2023 7:37 PM CDT documented in this encounter Plan of Treatment Not on file documented as of this encounter Visit Diagnoses Not on filedocumented in this encounter
--- OUTSIDE RECORDS SUMMARY | 2025-03-19 14:39 | XMS_ITS | Encounter Summary ---
Author Organization [employer] ([place], [place], [place], [place]) Address [address] [place] [address] Care Team Providers Care Waste Machine Offbearer Name Role Phone Unavailable Primary Care Provider Unavailabl e Encounter Details Date Type Department Care Team (Late st Contact Info) Description 04/06/[address] [facility] [place] [address] [place] [address] ProviderPat MD [address] [place] [address] Social History Tobacco Use Types [...] Conversion Note - Pat ProviderMD - 04/06/2021 2:13 PM CDT [place] [address] BUSHRA ABDI :1965 Visit Time:04/06/2021 What to do next Instructions From Your Care Team Diet after Discharge: Resume usual diet as tolerated, Do not drink any alcoholic beverages, Drink at least 8-10 glasses of water per day Activity after Discharge: Rest and relax today, No strenuous activity for 8 weeks. No bending, lifting, twisting, pushing, pulling, or overhead work for 8 weeks. walk 2-3 times/day . you may climb stairs. Lifting Restrictions: No heavy lifting over 10 pounds Driving after Discharge: Do not drive until 24 hours after no longer taking pain medications May Return to Work/School: when Ok'd by the Doctor Showering/Bathing: May shower in 48hours, but do not get incision wet; cover with plastic for 1 week while showering. if dressing gets wet you may change it. do not scrub site and keep away from the shower stream. No tub bathing, soaking or swimming. keep site clean and dry. pat dry and re-apply dressing. Notify Provider of: excessive bleeding, pain, swelling, loss of sensation (numbness/tingling) in legs, or pus-like drainage Wound/Incision Care after: keep dressing clean, dry, and intact. remove dressing in 2 days. change daily or every other day and keep clean and dry after that. leave steri-strips, sutures, and/or richard in place if present. NO lotions, powders, ointments to incision site. Medical Equipment for Home Use: ice pack for 20 min every hour as needed for 2 days. Neck brace for 6 weeks. Pain medication: take with food and use stool softener 2-3 times/day while on pain medicine. Do not take NSAIDS (aspirin, ibuprofen or aleve) or steroids for 8 weeks as they interfere with the fusion. Discharge Follow Up Instructions: f/u 4-5 weeks post op with AP/lateral x-rays of the cervical spine. Follow-Up Appointments Follow Up with MARION COBOS MD-SNU When Within 2 to 3 days Comments Follow-up appointment at 9:15am Where: [address] (SUNDAY ONLY) [place] [address]- Medications What How Much When Instructions Next Dose amitriptyline (amitriptyline 25 mg oral tablet) 1 Tablet(s) Oral At Bedtime atorvastatin (Lipitor 10 mg oral tablet) 1 Tablet(s) Oral Every Day cholecalciferol (Vitamin D3 50,000 units oral capsule) 1 Capsule(s) Oral Weekly DULoxetine (Cymbalta 30 mg oral delayed release capsule) 1 Capsule(s) Oral Every Day hydrochlorothiazide-lisinopril (hydroCHLOROthiazide-lisinopril 12.5 mg-10 mg oral tablet) 1 Tablet(s) Oral Every Day levothyroxine (levothyroxine 175 mcg (0.175 mg) oral tablet) 1 Tablet(s) Oral Every Day multivitamin Every Day omeprazole (omeprazole 10 mg oral delayed release capsule) 1 Capsule(s) Oral Two Times A Day oxybutynin (oxybutynin 10 mg/ 24 hr oral tablet, extended release) 1 Tablet(s) Oral Every Day pregabalin (pregabalin 75 mg oral capsule) 1 Capsule(s) Oral Two Times A Day Take your medications faithfully. Do NOT skip medication. Do NOT stop taking medications without the direction of a physician. Carry a list of your medications with you at all times, and take this medication list with you to your first follow up visit. Report any side effects. Avoid herbal remedies unless discussed with your physician. As part of your treatment plan, your physician may have prescribed a limited course of a controlled substance. This medication may be given to help people with moderate or severe pain or for other medical conditions, but there are risks involved with treatment. Common side effects may include nausea, constipation, drowsiness, sweating, itching, dry mouth, and rash. More serious side effects may include cognitive and motor impairment, like problems with thinking, concentrating, alertness, and movement (e.g. slowed reflexes), and driving and operating heavy machinery can be dangerous. It is important for you to talk to your physician if you have these side effects or questions. These controlled substances can produce physical dependence and be habit-forming if taken for an extended period of time, which means that the body has gotten used to them and may experience withdrawal symptoms if they are abruptly stopped. Withdrawal symptoms can include runny nose, sweating, goose bumps, diarrhea, abdominal cramping, rapid heartbeat, difficulty sleeping, and nervousness. Please dispose of unused and medications per pharmacy guidance. Education Materials General Anesthesia, Adult, Care After This sheet gives you information about how to care for yourself after your procedure. Your health care provider may also give you more specific instructions. If you have problems or questions, contact your health care provider. What can I expect after the procedure? After the procedure, the following side effects are common: ??? Pain or discomfort at the IV site. ??? Nausea. ??? Vomiting. ??? Sore throat. ??? Trouble concentrating. ??? Feeling cold or chills. ??? Weak or tired. ??? Sleepiness and fatigue. ??? Soreness and body aches. These side effects can affect parts of the body that were not involved in surgery. Follow these instructions at home: For at least 24 hours after the procedure: ??? Have a responsible adult stay with you. It is important to have someone help care for you until you are awake and alert. ??? Rest as needed. ??? Do not: ? Participate in activities in which you could fall or become injured. ? Drive. ? Use heavy machinery. ? Drink alcohol. ? Take sleeping pills or medicines that cause drowsiness. ? Make important decisions or sign legal documents. ? Take care of children on your own. Eating and drinking ??? Follow any instructions from your health care provider about eating or drinking restrictions. ??? When you feel hungry, start by eating small amounts of foods that are soft and easy to digest (bland), such as toast. Gradually return to your regular diet. ??? Drink enough fluid to keep your urine pale yellow. ??? If you vomit, rehydrate by drinking water, juice, or clear broth. General instructions ??? If you have sleep apnea, surgery and certain medicines can increase your risk for breathing problems. Follow instructions from your health care provider about wearing your sleep device: ? Anytime you are sleeping, including during daytime naps. ? While taking prescription pain medicines, sleeping medicines, or medicines that make you drowsy. ??? Return to your normal activities as told by your health care provider. Ask your health care provider what activities are safe for you. ??? Take xiiw-mij-sqxyfbp and prescription medicines only as told by your health care provider. ??? If you smoke, do not smoke without supervision. ??? Keep all follow-up visits as told by your health care provider. This is important. Contact a health care provider if: ??? You have nausea or vomiting that does not get better with medicine. ??? You cannot eat or drink without vomiting. ??? You have pain that does not get better with medicine. ??? You are unable to pass urine. ??? You develop a skin rash. ??? You have a fever. ??? You have redness around your IV site that gets worse. Get help right away if: ??? You have difficulty breathing. ??? You have chest pain. ??? You have blood in your urine or stool, or you vomit blood. Summary ??? After the procedure, it is common to have a sore throat or nausea. It is also common to feel tired. ??? Have a responsible adult stay with you for the first 24 hours after general anesthesia. It is important to have someone help care for you until you are awake and alert. ??? When you feel hungry, start by eating small amounts of foods that are soft and easy to digest (bland), such as toast. Gradually return to your regular diet. ??? Drink enough fluid to keep your urine pale yellow. ??? Return to your normal activities as told by your health care provider. Ask your health care provider what activities are safe for you. This information is not intended to replace advice given to you by your health care provider. Make sure you discuss any questions you have with your health care provider. Document Revised: 09/06/2018 Document Reviewed: 04/19/2018 [employer] Patient Education ?? 2020 [employer] Anterior Cervical Diskectomy and Fusion, Care After This sheet gives you information about how to care for yourself after your procedure. Your health care provider may also give you more specific instructions. If you have problems or questions, contact your health care provider. What can I expect after the procedure? After the procedure, it is common to have: ??? Neck pain. ??? Discomfort when swallowing. ??? Slight hoarseness. Follow these instructions at home: If you have a neck brace: ??? Wear it as told by your health care provider. Remove it only as told by your health care provider. ??? Keep the brace clean and dry. ??? Ask your health care provider if you should remove the brace to bathe or shower. Incision care ??? Follow instructions from your health care provider about how to take care of your incision. Make sure you: ? Wash your hands with soap and water before and after you change your bandage (dressing). If soap and water are not available, use hand cloud solutions architect. ? Change your dressing as told by your health care provider. ? Leave stitches (sutures), skin glue, or adhesive strips in place. These skin closures may need to stay in place for 2 weeks or longer. If adhesive strip edges start to loosen and curl up, you may trim the loose edges. Do not remove adhesive strips completely unless your health care provider tells you to do that. ??? Check your incision area every day for signs of infection. Check for: ? Redness, swelling, or pain. ? Fluid or blood. ? Warmth. ? Pus or a bad smell. Managing pain, stiffness, and swelling ??? Take txug-qjh-suhefbc and prescription medicines only as told by your health care provider. ??? If directed, put ice on the injured area. ? If you have a removable brace, remove it as told by your health care provider. ? Put ice in a plastic bag. ? Place a towel between your skin and the bag. ? Leave the ice on for 20 minutes, 2???3 times a day. Activity ??? Return to your normal activities as told by your health care provider. Ask your health care provider what activities are safe for you. ??? Do exercises as told by your health care provider. ??? Do not take baths, swim, or use a hot tub until your health care provider approves. ??? Do not lift anything that is heavier than 10 lb (4.5 kg), or the limit that you are told, until your health care provider says that it is safe. General instructions ??? Ask your health care provider if the medicine prescribed to you: ? Requires you to avoid driving or using heavy machinery. ? Can cause constipation. You may need to take actions to prevent or treat constipation, such as: ? Drink enough fluid to keep your urine pale yellow. ? Take oyon-tia-myrnngk or prescription medicines. ? Eat foods that are high in fiber, such as beans, whole grains, and fresh fruits and vegetables. ? Limit foods that are high in fat and processed sugars, such as fried and sweet foods. ??? Do not use any products that contain nicotine or tobacco, such as cigarettes, e-cigarettes, and chewing tobacco. These can delay healing. If you need help quitting, ask your health care provider. ??? Keep all follow-up visits and physical therapy appointments as told by your health care provider. This is important. Contact a health care provider if you have: ??? A fever. ??? Redness, swelling, or pain around your incision. ??? Fluid or blood coming from your incision. ??? Pus or a bad smell coming from your incision. ??? Pain that is not controlled by your pain medicine. ??? Increasing hoarseness or trouble swallowing. Get help right away if you have: ??? Severe pain. ??? Sudden numbness or weakness in your arms. ??? Warmth, tenderness, or swelling in your calf. ??? Chest pain. ??? Difficulty breathing. Summary ??? After the procedure, it is common to have neck pain, discomfort when swallowing, and slight hoarseness. ??? Follow instructions from your health care provider about how to take care of your incision. ??? Check your incision area every day for signs of infection. ??? Return to your normal activities as told by your health care provider. Ask your health care provider what activities are safe for you. ??? Contact a health care provider if you have signs of infection at your incision. This information is not intended to replace advice given to you by your health care provider. Make sure you discuss any questions you have with your health care provider. Document Revised: 05/29/2019 Document Reviewed: 05/29/2019 [employer] Patient Education ?? 2020 [employer]. Emergency Awareness and Preventative Care STROKE is an EMERGENCY Every Minute Counts Act FAST and Check for these signs: FACE Does the face look uneven? ARM Does one arm drift down? SPEECH Does their speech sound strange? TIME Call at any sign of stroke Stroke Risk Factors Atrial Fibrillation (irregular heartbeat) Diabetes Family history of stroke Heart Disease Heavy alcohol use High Blood Pressure High Cholesterol Physical inactivity and obesity Smoking Cigarette Smoking The facts are clear, cigarette smoking will shorten your life. Smoking can cause many illnesses along the way. As a healthcare provider, we recommend that you stop smoking. Assistance with quitting is available by contacting 0-817-USGD-NOW. This is a free resource providing counseling, support, and referral. Or you may contact your personal physician. National Suicide Prevention Lifeline: The National Suicide Prevention Lifeline is a national network of local crisis centers that provides free and confidential emotional support to people in suicidal crisis or emotional distress 24 hours a day, 7 days a week. Don't Wait! Stop a Heart Attack Before it Starts What is a heart attack? A heart attack is damage or to a part of the heart from severely decreased or lack of blood flow to the heart. Over time, arteries can become narrow from the buildup of fat and cholesterol, which is called plaque. The plaque can rupture causing a blood clot to form. When the blood clot forms, the artery can become severely narrowed or completely blocked, causing a heart attack. Heart attack is the leading cause of in the [place]. 85% of muscle damage occurs within the first 2 hours. Delay in the recognition of heart attack symptoms increases the chances of . Know the early symptoms of a heart attack: Nausea Feeling of fullness in chest Jaw Pain Pain that travels down one or both arms Fatigue/being tired Anxiety Back Pain Chest pressure, squeezing, or discomfort Shortness of breath Sweating, or a cold sweat Feeling of impending doom There are unusual signs of a heart attack, too! Women, the elderly, and diabetics may present with atypical symptoms: Fainting/dizziness Weakness Confusion Risk Factors for a Heart Attack Some heart disease risk factors, such as age and family history, cannot be changed. Others, like smoking and lack of exercise, can be changed. Smoking High Cholesterol High Blood Pressure Family History Obesity Age Gender (Males are at higher risk) Lack of Exercise Diabetes Diet Stress Excessive Alcohol Intake If you or someone you know is experiencing the signs and symptoms of a heart attack, DON???T DELAY. Call immediately and seek help. If someone collapses, perform CPR! Do not attempt to drive if you are having symptoms of heart attack. Hands-Only CPR Why Hands-Only CPR? Hands-Only CPR has been shown to be as effective as conventional CPR for cardiac arrests that occur outside of a hospital. Survival depends on immediately receiving CPR from someone nearby. How do you perform Hands-Only CPR? There are two easy steps: Call if you see a teen or adult collapse Push hard and fast in the center of the chest at a beat of 100 beats per minute. Save a life! 4 WAYS TO GET AHEAD OF SEPSIS SEPSIS is a MEDICAL EMERGENCY. Time matters! Infections put you and your family at risk for a life-threatening condition called sepsis. Sepsis is the body's extreme response to an infection. It is life-threatening, and without timely treatment, sepsis can rapidly lead to tissue damage, organ failure, and . Sepsis happens when an infection you already have-in your skin, lungs, urinary tract or somewhere else-triggers a chain reaction throughout your body. 1 PREVENT INFECTIONS Take good care of chronic conditions. Talk to your doctor about getting the recommended vaccines. 2 PRACTICE GOOD HYGIENE Wash your hands frequently. Keep cuts or open sores clean and covered until they are healed. 3 KNOW THE SYMPTOMS Confusion or disorientation Shortness of breath High heart rate Fever, shivering, or feeling very cold Extreme pain or discomfort Clammy or sweaty skin 4 ACT FAST Get medical care IMMEDIATELY if you suspect sepsis or if you have an infection that is not getting better or is getting worse. To learn more about sepsis and how to prevent infections, visit www.cdc.gov/sepsis. Test Results Laboratory or Other Results This Visit (last charted value for your 04/06/2021 visit) Hematology 04/04/2021 8:17 AM WBC: 6.8 K/uL -- Normal range between ( 4.5 and 10.5 ) RBC: 4.64 Million/uL -- Normal range between ( 3.93 and 5.22 ) Hct: 44.8 % -- Normal range between ( 34.1 and 44.9 ) Hgb: 14.1 g/dL -- Normal range between ( 11.2 and 15.7 ) Platelet Count: 274 K/uL -- Normal range between ( 163 and 369 ) MCH: 30.4 pg -- Normal range between ( 25.6 and 32.2 ) MCHC: 31.5 Gram/dL -- Normal range between ( 32.2 and 36.5 ) MCV: 96.6 fL -- Normal range between ( 79.0 and 94.8 ) Slide Review: No RDW: 13.2 % -- Normal range between ( 11.7 and 14.9 ) MPV: 9.8 fL -- Normal range between ( 9.4 and 12.4 ) Urinalysis 04/04/2021 8:17 AM Urine Nitrite: Negative Urine Leukocyte Esterase: Negative Urine Appearance: Clear Urine Glucose Dipstick: Negative Urine Blood Dipstick: Negative Urine Type: U CleanCatch Urine Urobilinogen Dipstick: 0.2 EU/dL Urine Protein Dipstick: Negative Urine Color: Yellow Urine Ketones Dipstick: Negative Urine pH Dipstick: 7.0 -- Normal range between ( 6.0 and 8.0 ) Urine Bilirubin Dipstick: Negative Urine Specific [place]: 1.012 -- Normal range between ( 1.005 and 1.030 ) Microbiology 04/04/2021 10:40 AM SARS-CoV-2 (COVID19 PCR): Negative Blood Bank 04/06/2021 9:46 AM ABO/Rh (ECHO): A POS Antibody Screen: Negative ABSC General Chemistry 04/04/2021 8:17 AM Creatinine Level: 0.80 mg/dL -- Normal range between ( 0.55 and 1.02 ) Sodium Level: 141 mmol/L -- Normal range between ( 136 and 146 ) Potassium Level: 4.8 mmol/L -- Normal range between ( 3.5 and 5.1 ) Chloride Level: 108 mmol/L -- Normal range between ( 102 and 112 ) Carbon Dioxide Level: 31 mmol/L -- Normal range between ( 21 and 32 ) Anion Gap: 7 -- Normal range between ( 9 and 20 ) Bun/Creatinine: 12.5 -- Normal range between ( 8.0 and 20.0 ) Calcium Level: 9.2 mg/dL -- Normal range between ( 8.4 and 10.1 ) eGFR : >60 mL/min/1.73m2 eGFR NonAfrican: >60 mL/min/1.73m2 Glucose Level: 84 mg/dL -- Normal range between ( 74 and 106 ) Blood Urea Nitrogen: 10 mg/dL -- Normal range between ( 7 and 22 ) Patient Name:BUSHRA ABDI I have received this information and was given the opportunity to ask questions. Patient/Zoo Director Name: Patient/Zoo Director Signature: Relationship to Patient: Clinician/Hospital Zoo Director Signature: Date: Electronically signed by Interface, [facility] Conversion Java Engineer Armen at 01/07/2023 7:35 PM CDT documented in this encounter Plan of Treatment Not on file documented as of this encounter Visit Diagnoses Not on filedocumented in this encounter
--- OUTSIDE RECORDS SUMMARY | 2025-03-19 14:39 | XMS_ITS | Encounter Summary ---
Author Organization [employer] ([place], [place], [place], [place]) Address [address] [place] [address] Care Team Providers Care Sales Force Administrator Name Role Phone Unavailable Primary Care Provider Unavailabl e Encounter Details Date Type Department Care Team (Late st Contact Info) Description 04/06/2021 Transcribed Document [facility] [place] [facility] [place] [address] ProviderPat MD [address] [place] [address] Social History Tobacco Use Types [...] Conversion Note - Pat ProviderMD - 04/06/2021 11:42 AM CDT [facility] Main OR IntraOp Summary Primary Physician: MARION COBOS MD-SNU Finalized Date/Time: 04/07/21 13:03:57 Pt. Name: MELANIE LUNDBERG D.O.B./Sex: 1965 Female Med Rec #: [id number] Physician: MARION COBOS MD-SNU Financial #: [id number] Pt. Type: O Room/Bed: ASA/3 Admit/Disch: 04/06/21 06:47:00 - 04/06/21 15:30:00 Institution: [facility] IntraOp Case Attendance Entry 1 Entry 2 Entry 3 Case Attendee MARION COBOS WASSON, SANDRA D RN NELSON NGUYEN, MADELEINE NEGRETE-SNU TECH Role Performed Surgeon/Proceduralist, System Operator, First Scrub, First First Time In 04/06/21 11:15:00 04/06/21 11:15:00 04/06/21 11:15:00 Time Out 04/06/21 13:04:00 04/06/21 13:04:00 04/06/21 13:04:00 Procedure Cervical Discectomy Cervical Discectomy Cervical Discectomy Fusion Anterior Fusion Anterior Fusion Anterior Other Attendee Superficial Wound Closed By: Last Modified By: CLARK JAUREGUI, RN CLARK JAUREGUI, RN CLARK JAUREGUI, RN 04/06/21 13:03:22 04/06/21 13:03:22 04/06/21 13:03:22 Entry 4 Entry 5 Entry 6 Case Attendee HEBERT GAMBOA RENAE D, VITO MERLOS MD-ANS Role Performed Physician animal assistant TRUCK BRACER/Nurse Cook Apprentice Anesthesiologist of Record Time In 04/06/21 11:15:00 04/06/21 11:15:00 04/06/21 11:15:00 Time Out 04/06/21 13:04:00 04/06/21 13:04:00 04/06/21 13:04:00 Procedure Cervical Discectomy Cervical Discectomy Cervical Discectomy Fusion Anterior Fusion Anterior Fusion Anterior Other Attendee Superficial Wound Closed By: Last Modified By: CLARK JAUREGUI, RN CLARK JAUREGUI, RN CLARK JAUREGUI, RN 04/06/21 13:03:22 04/06/21 13:03:22 04/06/21 13:03:22 Entry 7 Entry 8 Entry 9 Case Attendee OTHER, ATTENDEE #1 Hema Schreiber, Robyn Sales, Diagnostic Burglar Alarm Superintendent Role Performed Vendor Scrub, Second Hollock Maker Time In 04/06/21 11:15:00 04/06/21 11:15:00 04/06/21 11:15:00 Time Out 04/06/21 13:04:00 04/06/21 11:16:00 04/06/21 13:04:00 Procedure Cervical Discectomy Cervical Discectomy Cervical Discectomy Fusion Anterior Fusion Anterior Fusion Anterior Other Attendee NARESH WOODARD Superficial Wound Closed By: Last Modified By: CLARK JAUREGUI, CLARK WATSON, RN CLARK JAUREGUI, RN 04/06/21 13:03:22 04/06/21 13:03:22 04/06/21 13:03:22 Entry 10 Entry 11 Case Attendee Hema Schreiber, Lydia Cordero, Rn Role Performed Scrub, First System Operator, First Time In 04/06/21 11:57:00 04/06/21 12:00:00 Time Out 04/06/21 13:04:00 04/06/21 13:04:00 Procedure Cervical Discectomy Cervical Discectomy Fusion Anterior Fusion Anterior Other Attendee LUNCH RELIEF LUNCH Superficial Wound Closed By: Last Modified By: CLARK JAUREGUI RN WASSON, SANDRA D, RN 04/06/21 13:03:22 04/06/21 13:03:22 [facility] IntraOp Case Attendance Audit 04/06/21 13:03:22 Sand Control Worker: WASSONSY Modifier: WASSONSY 1 <+> Time Out [...] Cervical Discectomy Fusion Anterior 9 <+> Time Out 9 <*> Procedure Cervical Discectomy Fusion Anterior 10 <+> Time Out 10 <*> Procedure Cervical Discectomy Fusion Anterior 11 <+> Time Out 11 <*> Procedure Cervical Discectomy Fusion Anterior 04/06/21 12:05:52 Sand Control Worker: WASSONSY Modifier: WASSONSY <+> 11 Case Attendee <+> 11 Role Performed <+> 11 Time In <+> 11 Procedure <+> 11 Other Attendee 04/06/21 11:57:37 Sand Control Worker: WASSONSY Modifier: WASSONSY <+> 10 Case Attendee <+> 10 Role Performed <+> 10 Time In <+> 10 Procedure <+> 10 Other Attendee 04/06/21 11:57:14 Sand Control Worker: WASSONSY Modifier: WASSONSY 1 <*> Procedure Cervical [...] Fusion Anterior 9 <+> Time In 9 <*> Procedure Cervical Discectomy Fusion Anterior 04/06/21 11:53:13 Sand Control Worker: WASSONSY Modifier: WASSONSY 1 <*> Procedure Cervical [...] <+> 9 Role Performed <+> 9 Procedure 04/06/21 11:48:20 Sand Control Worker: WASSONSY Modifier: WASSONSY <+> 8 Case Attendee <+> 8 Role Performed <+> 8 Time Out <+> 8 Procedure 04/06/21 11:47:37 Sand Control Worker: WASSONSY Modifier: WASSONSY 1 <+> Time In [...] 7 <*> Procedure Cervical Discectomy Fusion Anterior 7 <*> Other Attendee BRANDYN RICHARDSON [facility] IntraOp Case Times Entry 1 Patient In Room Time 04/06/21 11:15:00 Out Room Time 04/06/21 13:04:00 Anesthesia Start Time 04/06/21 11:15:00 Stop Time 04/06/21 13:04:00 Surgery / Procedure Times Start Time 04/06/21 11:42:00 Stop Time 04/06/21 12:57:00 Last Modified By: CLARK JAUREGUI RN 04/06/21 13:03:11 [facility] IntraOp Case Times Audit 04/06/21 13:03:11 Sand Control Worker: HANG Modifier: WASSONSY <+> 1 Out Room Time <+> 1 Stop Time <+> 1 Stop Time 04/06/21 11:46:55 Sand Control Worker: HANG Modifier: WASSONSY <+> 1 Start Time [facility] IntraOp Cautery Entry 1 Entry 2 ESU Identification Cautery Type Monopolar ESU BiPolar ESU Cautery Type Comments ID Number [id number] ID Type Hospital Number Hospital Number Cautery Settings Cut Setting 40 8 Coag Setting 40 40 Blend Setting Bipolar Setting Argon Setting Argon Alex ESU Grounding Pad Ground Pad Type Adult Grounding Pad Type Comment Grounding Pad Site Right thigh Grounding Pad Site WNL Comment Grounding Pad CLARK JAUREGUI RN Applied By Grounding Pad Site Warm, Dry, Intact Skin Condition Before Cautery Site Skin Condition WDL Before Comment Grounding Pad Site Unchanged Skin Condition After Cautery Site Skin Condition WDL After Comment Last Modified By: CLARK JAUREGUI, RN CLARK JAUREGUI RN 04/06/21 11:49:21 04/06/21 11:50:42 [facility] IntraOp Cautery Audit 04/06/21 11:50:42 Sand Control Worker: HANG Modifier: JUVENTINOSY 2 <*> ID Number [id number] [facility] IntraOp Communication Entry 1 Communication To Family/Significant other Comment START Communication By CLARK JAUREGUI RN Date and Time 04/06/21 11:46:00 Last Modified By: CLARK JAUREGUI RN 04/06/21 11:47:05 [facility] IntraOp Counts Verification Entry 1 Procedure Cervical Discectomy Fusion Anterior Count Info Count Type Sponge, Sharps, Miscellaneous Counts Verification Baseline/pre-procedure Sequence Count Results Not Applicable Counts Performed By Count Performed By Hema Schreiber, SARAH (Scrub) Count Performed By CLARK JAUREGUI RN (RN) Last Modified By: CLARK JAUREGUI RN 04/06/21 11:48:27 [facility] IntraOp Counts Verification Audit 04/06/21 11:48:27 Sand Control Worker: WASSONSY Modifier: WASSONSY 1 <*> Procedure Cervical Discectomy Fusion Anterior 1 <+> Count Performed By (Scrub) [facility] IntraOp Counts Final Entry 1 Procedure Cervical Discectomy Fusion Anterior Final Count Info Count Type Sponge, Sharps, Miscellaneous Counts Verification Skin Closure/end of Sequence procedure Count Results Correct, surgeon notified Counts Performed By Count Performed By Hema Schreiber CST (Scrub) Count Performed By CLARK JAUREGUI, RN (RN) Last Modified By: CLARK JAUREGUI RN 04/06/21 12:49:55 [facility] IntraOp Counts Final Audit 04/06/21 12:49:55 Sand Control Worker: WASSONSY Modifier: WASSONSY 1 <*> Procedure Cervical Discectomy Fusion Anterior 1 <+> Count Performed By (Scrub) 1 <+> Count Performed By (RN) [facility] IntraOp Cultures and Spec Summary Entry 1 Cultrures and Specimens Specimen Ordered: Yes Test(s) Routine/Path-Lab Requested/Final Disposition Last Modified By: CLARK JAUREGUI RN 04/06/21 11:47:49 General Comments: A. EXPLANTED HARDWARE [facility] IntraOp Departure from OR Entry 1 Integumentary Assessment Integumentary WDL Assessment WDL Transfer/Handoff Transfer to PACU Phase I Handoff Method Phone call Post-op Transport Stretcher/Gurney Via Patient Transport LEANNE RUIZ, NA, Accompanied by HEBERT GAMBOA Last Modified By: CLARK JAUREGUI RN 04/06/21 12:06:34 [facility] IntraOp Departure from OR Audit 04/06/21 12:06:34 Sand Control Worker: HANG Modifier: WASSONSY <+> 1 Patient Transport Accompanied by [facility] IntraOp Dressing and Packing Entry 1 Type Dressing Location NECK Wound Dressing Item [place] Applied By HEBERT GAMBOA Other Comments OINTMENT, COVADERM Last Modified By: CLARK JAUREGUI RN 04/06/21 12:07:25 [facility] IntraOp Fire Risk Assessment Entry 1 Fire Info Surgical Site or 1- Yes Incision Above the Xyphoid Open O2 Source 0- No (Mask or Cannula) Available Ignition 1- Yes (ESU, Laser, Light Source) Fire Risk 2 Assessment Score Fire Score Fire Risk Yes Assessment Complete Fire Risk CLARK JAUREGUI, bakery manager Verified By Fire Risk 04/06/21 11:14:00 Assessment Verified Date/Time Fire Risk Standard Fire Yes Safety Precautions Followed Last Modified By: CLARK JAUREGUI RN 04/06/21 11:50:47 [facility] IntraOp Fire Risk Assessment Audit 04/06/21 11:50:47 Sand Control Worker: HANG Modifier: WASSONSY <+> 1 Fire Risk Assessment Verified By [facility] IntraOp General Case Fleet Dispatch Manager 1 Case Information OR OR 11 [facility] Case Level 1 Room Verified Yes Wound Class I - Clean Specialty Neurosurgery Anesthesia Type General ASA Class 3 Diagnosis Preop Diagnosis CERVICAL RADICULOPATHY Postop Same As Preop No Postop Diagnosis SEE MD POST OP NOTE Last Modified By: CLARK JAUREGUI RN 04/06/21 11:49:40 [facility] IntraOp General Case Data Audit 04/06/21 11:49:40 Sand Control Worker: HANG Modifier: WASSONSY 1 <*> OR OR 09 [facility] 1 <+> ASA Class 1 <+> Room Verified [facility] IntraOp Implant Log Entry 1 Entry 2 Entry 3 Type Tissue Implant Implant (Synthetic) Implant (Synthetic) (Biologic) Implant Log Implant Type Hardware Hardware Tissue Implant Type Bone Implant BONE VIVIGEN FORMABLE CAGE EIT CIF H 6MM 8DEG PLT ANT SKYLN HYBRD Identification [id number] Description Implant Quantity 1 1 1 Implant Site CERIVAL CERVICAL SPINE OP SITE Implant Identification Model Number Implant [id number] Identification Serial Number Implant [id number] Identification Lot Number Implant Lifenet:Lifenet J&J:Depuy:Depuy Spine J&J:Depuy:Depuy Spine Identification Transplant Srv Fish Hatchery Assistant Name: Implant [id number] Identification Catalog Number Implant Size Implant Has an Yes Yes Expiration Date Implant Expiration 02/23/22 02/14/25 Date Wasted Radioactive Material Time Implanted Tissue Implant Continue for Tissue Implant Documentation Tissue Identification Number Graft Prep Per Yes Fish Hatchery Assistant Instructions: Tissue Preparation Thawed Method: Reconstitution Solution: Reconstitution Solution Lot Number Reconstitution Solution Expiration Date: Thawing Solution NACL Thawing Solution [id number] Lot Number Thawing Solution 12/16/22 Expiration Date Preparation Materials, Other Preparation Materials, Other Lot Number Preparation Materials, Other Expiration Date Tissue Hema Schreiber, SARAH Prepared/Processed By Fish Hatchery Assistant Yes Paperwork Completed Implant Type Comment Last Modified By: CLARK JAUREGUI RN WASSON, SANDRA D, RN WASSON, SANDRA D, RN 04/06/21 12:38:32 04/06/21 12:38:32 04/06/21 12:49:39 Entry 4 Entry 5 Type Implant (Synthetic) Implant (Synthetic) Implant Log Implant Type Hardware Hardware Tissue Implant Type Implant SCR SKYLN VARI-OVSZ SCR SKYLN VARI SD Identification [id number] Description Implant Quantity 6 2 Implant Site OP SITE OP SITE Implant Identification Model Number Implant Identification Serial Number Implant Identification Lot Number Implant J&J:Depuy:Depuy Spine J&J:Depuy:Depuy Spine Identification Fish Hatchery Assistant Name: Implant [id number] Identification Catalog Number Implant Size Implant Has an Expiration Date Implant Expiration Date Wasted Radioactive Material Time Implanted Tissue Implant Continue for Tissue Implant Documentation Tissue Identification Number Graft Prep Per Fish Hatchery Assistant Instructions: Tissue Preparation Method: Reconstitution Solution: Reconstitution Solution Lot Number Reconstitution Solution Expiration Date: Thawing Solution Thawing Solution Lot Number Thawing Solution Expiration Date Preparation Materials, Other Preparation Materials, Other Lot Number Preparation Materials, Other Expiration Date Tissue Prepared/Processed By Fish Hatchery Assistant Paperwork Completed Implant Type Comment Last Modified By: CLARK JAUREGUI RN WASSON, SANDRA D, RN 04/06/21 12:49:39 04/06/21 12:49:39 [facility] IntraOp Implant Log Audit 04/06/21 12:49:39 Sand Control Worker: HANG Modifier: JENNIFERTONYROSALIA <+> 3 Implant Identification Description <+> 3 Implant Identification Fish Hatchery Assistant Name: <+> 3 Implant Site <+> 3 Implant Quantity <+> 3 Implant Identification Catalog Number <+> 3 Implant Type <+> 3 Type <+> 4 Implant Identification Description <+> 4 Implant Identification Fish Hatchery Assistant Name: <+> 4 Implant Site <+> 4 Implant Quantity <+> 4 Implant Identification Catalog Number <+> 4 Implant Type <+> 4 Type <+> 5 Implant Identification Description <+> 5 Implant Identification Fish Hatchery Assistant Name: <+> 5 Implant Site <+> 5 Implant Quantity <+> 5 Implant Identification Catalog Number <+> 5 Implant Type <+> 5 Type [facility] IntraOp Intraoperative Assessment Entry 1 Handoff Method Bedside/Face to face, Online nursing summary Valid History / Yes Physical in Chart Preoperative Yes Checklist Reviewed/Evaluated Allergies Reviewed Yes Patient is Latex No Sensitive Isolation Not applicable Precautions Noted Level of WDL Consciousness (WDL = Alert, Oriented to Person, Place, and Time) Skin Assessment No Verified Present Upon IVs Arrival to OR Prosthetic/Assistive Hardware Devices Last Modified By: CLARK JAUREGUI RN 04/06/21 11:49:53 [facility] IntraOp Intraoperative Equipment Entry 1 Type Equipment Equipment Equipment Kg Suction System ID Number [id number] Setting 160 MM HG Intraop Monitoring Electrocardiogram Five lead placement (ECG) Electrode Placement Blood Pressure Non-Invasive BP Device Source Blood Pressure Arm, left upper Location Pulse Oximeter Hand, right Probe Site Antiembolic Devices Antiembolic Devices Sequential compression device, knee high Antiembolic Device Bilateral Location Antiembolic Device [id number] ID Number Scopes Photo/Video Documentation Photo No Video No Last Modified By: CLARK JAUREGUI RN 04/06/21 11:50:32 [facility] IntraOp Medication Admin Entry 1 Entry 2 Entry 3 Medication/Irrigant lidocaine 1% w/ SPNG SURGFOAM thrombin 5000units epinephrine 1:100,000 [id number] topical powder - 30ml vial - [id number] Combo Med List Time Administered Route of LOCAL TOPICAL TOPICAL Administration Dose Dose 10 1 5000 Unit of Measure ml pkt units Volume Administered By MARION COBOS TUTT, MATTHEW PAIGE, TUTT, MATTHEW PAIGE, MD-SNU -SNU -SNRaquel Procedure Irrigation Irrigant Volume In Irrigant Volume Out Last Modified By: CLARK JAUREGUI, CLARK WATSON RN WASSON, SANDRA D, RN 04/06/21 11:55:23 04/06/21 11:55:23 04/06/21 11:55:23 Entry 4 Medication/Irrigant vancomycin 1Gm vial - [id number] Combo Med List Time Administered Route of ADDED TO NS IRRIGATIION Administration Dose Dose 1 Unit of Measure gram Volume Administered By MARION COBOS MD-SNRaquel Procedure Irrigation Irrigant Volume In Irrigant Volume Out Last Modified By: CLARK JAUREGUI RN 04/06/21 11:55:23 [facility] IntraOp Patient Positioning Entry 1 Procedure Cervical Discectomy Fusion Anterior Body Position Supine Left Arm Position Tucked and padded at side Right Arm Position Tucked and padded at side Left Leg Position Uncrossed, parallel Right Leg Position Uncrossed, parallel Feet Uncrossed Yes Pressure Points Yes Checked Positioning Devices Julian Table, Head Rest, Pad, Elbow, Pillows, Roll, Shoulder, Safety Strap, Thighs Positioned By MARION COBOS MD-SNU, CLARK JAUREGUI, RN, LEANNE RUIZ, NA Position Verified Positioning Yes Verified by Anesthesia Positioning Yes Verified by Surgeon Last Modified By: CLARK JAUREGUI RN 04/06/21 11:52:27 [facility] IntraOp Sign In Entry 1 Patient, Site, Yes Procedure Identified Surgical Consent Yes Confirmed Relevant Surgical Yes Documents Available Surgical Site N/A Marked by person performing procedure Anesthesia Machine Yes Check Completed Medication Checks Yes Completed Allergies Yes Airway Difficult No Airway/Aspiration Risk Difficult Yes Airway/Aspiration Intervention Equipment Available Blood Loss Risk Yes Blood Loss Yes Intervention Equipment Prepared and Ready Blood Identifiers Yes Verified Per Policy Hypothermia Risk Yes Warming Measures Yes Taken Last Modified By: CLARK JAUREGUI RN 04/06/21 11:55:41 [facility] IntraOp Sign Out Entry 1 RN Confirmation Surgical Yes Procedure(s) Identified Instrument, Sponge Yes and Sharps Counts Correct/Documented Equipment Problems Yes Documented Specimen Labeled Yes Correctly Urinary Catheter N/A Documented in IView Roy Patient Yes Recovery Concerns Reviewed with Anesthesia Provider, Surgeon and RN Roy Patient Yes Management Concerns Reviewed with Anesthesia Provider, Surgeon and RN Safety Checklist Yes Elements Complete? RN Sign Out CLARK JARUEGUI RN Signature RN Sign Out 04/06/21 13:04:00 Signature Date/Time Plan of Care Outcome - [...] objects Last Modified By: CLARK JAUREGUI RN 04/06/21 13:03:21 [facility] IntraOp Sign Out Audit 04/06/21 13:03:21 Sand Control Worker: HANG Irizarry: JUVENTINOSY <+> 1 RN Sign Out Signature Date/Time [facility] IntraOp Skin Prep Entry 1 Procedure Cervical Discectomy Fusion Anterior Prescribed Yes Pre-Surgical Prep Completed Prep Area OP SITE AFTER ALCOHOL AND HIBICLENS PREP PER DR PAPITO Intraop Prep Integumentary WDL Assessment WDL Prep Agents Alcohol, Chlorhexadine gluconate, DuraPrep Prep by CLARK JAUREGUI, RN Hair Removal Methods No hair removal performed Last Modified By: CLARK JAUREGUI RN 04/06/21 11:52:57 [facility] IntraOp Surgical Procedures Entry 1 Procedure Cervical Discectomy Fusion Anterior Additional (C6-7 ACDF WITH Procedure REVISION OF C4-6 Description HARDWARE) Primary Procedure Yes Primary Surgeon MARION COBOS MD-SNU Start 04/06/21 11:42:00 Stop 04/06/21 12:57:00 Anesthesia Type General Specialty Neurosurgery Wound Class I - Clean Last Modified By: CLARK JAUREGUI RN 04/06/21 13:03:14 General Comments: ANCEF 2 GRAM IV PER ANESTHESIA [facility] IntraOp Surgical Procedures Audit 04/06/21 13:03:14 Sand Control Worker: HANG Modifier: WASSONSY 1 <*> Stop 1 <*> Stop [facility] IntraOP Time Out Entry 1 Procedure to be Cervical Discectomy Performed Fusion Anterior Time Out Time Out Pause Time 04/06/21 11:41:00 All activity Yes suspended (unless life threatening [...] Critical Events Surgeon None expected Anesthesia Provider Patient specific concerns Nursing Assures Sterility of instruments, Equipment concerns or issues, Implant Availability Essential Imaging Yes Labeled and Displayed Last Modified By: CLARK JAUREGUI RN 04/06/21 11:44:18 [facility] IntraOp X-Ray and Images Entry 1 X-Ray/Imaging Type Fluoroscopy Fluoroscopy Type C-Arm Site OP SITE Rabies Inspector Name Robyn Kumar, Diagnostic Burglar Alarm Superintendent Last Modified By: CLARK JAUREGUI RN 04/06/21 11:57:01 Case Comments <None> Finalized By: BO ALEX Document Signatures Signed By: CLARK JAUREGUI RN 04/06/21 13:03 BO ALEX 04/07/21 13:03 Unfinalized History Date/Time Username Reason for Unfinalizing Freetext Reason for Unfinalizing 04/07/21 13:01 TOMAS Correct Billing Electronically signed by Monroe Christopher Conversion Adjunct Art History Instructor Cerner at 01/07/2023 7:31 PM CDT documented in this encounter Plan of Treatment Not on file documented as of this encounter Visit Diagnoses Not on filedocumented in this encounter
--- OUTSIDE RECORDS SUMMARY | 2025-03-19 14:39 | XMS_ITS | Referral Summary ---
Author Organization [employer] ([place], [place], [place], [place]) Address [address] [place] [address] Care Team Providers Care Phone Triage Specialist Name Role Phone Unavailable Primary Care Provider Unavailabl e Social History Tobacco Use Types Packs/Day Years Used Date Smoking Tobacco: Never Assessed Comments Unknown Sex and Gender Information Value Date Recorded Sex Assigned at Female 03/14/2022 5:32 PM CDT Legal Sex Female 5:32 PM CDT Gender Identity Female 03/14/2022 5:32 PM CDT Sexual Orientation Not on file Plan of Treatment Not on file
--- OUTSIDE RECORDS SUMMARY | 2025-03-19 14:39 | XMS_ITS | Encounter Summary ---
Author Organization [employer] ([place], [place], [place], [place]) Address [address] [place] [address] Care Team Providers Care Brake Shoe Rebuilder Name Role Phone Unavailable Primary Care Provider Unavailabl e Encounter Details Date Type Department Care Team (Late st Contact Info) Description 04/06/2021 Transcribed Document [facility] Neurology - [address] [facility] [address] [place] [address] Srinivas Melendez MD [address] [place] [address] Social History Tobacco Use Types [...] Conversion Note - Srinivas Melendez MD - 04/06/2021 4:14 PM EDT DATE OF PROCEDURE: 04/06/2021 SURGEON: Srinivas Melendez MD PRIMARY CARE PHYSICIAN: Leeann Johnson. PREOPERATIVE DIAGNOSES: 1. Previous C4-C5 and C5-C6 ACDF for cord compression. 2. Continued foraminal stenosis at C6-C7 with worsening radiculopathy. POSTOPERATIVE DIAGNOSES: 1. Previous C4-C5 and C5-C6 ACDF for cord compression. 2. Continued foraminal stenosis at C6-C7 with worsening radiculopathy. PROCEDURES PERFORMED: 1. C6-C7 anterior cervical diskectomy and fusion. 2. Replating from C4-C7. THERAPEUTIC RIDING INSTRUCTOR: Salinas Suero. TYPE OF ANESTHESIA: GEA. DESCRIPTION OF PROCEDURE IN DETAIL: Once the consent was noted to be on chart, Ms. Lundberg was taken to the operating room. She was anesthetized and placed in the supine position. All pressure points were carefully checked and padded. A shoulder bump was placed. Preoperative antibiotics were given. She was prepped and draped in usual sterile fashion. A time-out was called and a #10 blade was used to reopen the right-sided horizontal cervical incision. Cautery was used to dissect down to and through the platysmas muscle. A subplatysmal dissection was performed down to the anterior spine. Soft tissue was removed off the previous scar and soft tissue was removed off the previous anterior plate. Set screws were untorqued and six screws were removed and the plate came out without difficulty. A large anterior osteophyte was removed off C6-C7. Retractors were placed and the operating microscope was brought into the field. A complete diskectomy was performed. The posterior longitudinal ligament was removed and bilateral foraminotomies were performed until the exiting C7 nerve roots were free bilaterally. Full decompression was achieved. The endplates were prepared and a conduit cage packed with ViviGen was placed into the disk space. Distraction pins were crossed the segment throughout the diskectomy and were released after the cage was in place. Bone wax filled the holes where the distraction pins were. A 48 mm [place] plate was then affixed to the anterior vertebral bodies at C4, C5, C6 and C7 with two screws at each level. All hardware looked well placed on fluoroscopy, both AP and laterally. The set screws were torqued to factory specifications. Meticulous hemostasis was obtained until the irrigant ran clear. Two Vicryl reapproximated the platysmas, 3-0 Vicryl closed the skin subcuticularly. Mastisol, Steri-Strips, and a Covaderm was applied. Salinas Suero assisted throughout the surgery and helped perform the closure. SPECIMEN SENT: Old hardware. ESTIMATED BLOOD LOSS: 50 mL. DRAINS: None. COMPLICATIONS: None. /[id number] MD BEN Rodrigez/RIGOBERTO / MPT / MODL /[id number] CC: Leeann Johnson documented in this encounter Plan of Treatment Not on file documented as of this encounter Visit Diagnoses Not on filedocumented in this encounter
--- OUTSIDE RECORDS SUMMARY | 2025-03-19 14:39 | XMS_ITS | Encounter Summary ---
Author Organization [employer] ([place], [place], [place], [place]) Address [address] [place] [address] Care Team Providers Care Repairer Helper Name Role Phone Unavailable Primary Care Provider Unavailabl e Encounter Details Date Type Department Care Team (Late st Contact Info) Description 04/06/2021 Transcribed Document [facility] [place] Family Medicine [facility] [place] [address] ProviderPat MD [address] [place] [address] Social History Tobacco Use Types [...] ProviderMD - 04/06/2021 11:42 AM CDT [facility] Main OR PostOp Summary Primary Physician: MARION COBOS MD-SNU Finalized Date/Time: 04/07/21 13:01:30 Pt. Name: BUSHRA LUNDBERG D.O.B./Sex: 1965 Female Med Rec #: [id number] Physician: MARION COBOS MD-SNU Financial #: [id number] Pt. Type: O Room/Bed: ASA/3 Admit/Disch: 04/06/21 06:47:00 - 04/06/21 15:30:00 Institution: [facility] Main OR PostOp Case Times Entry 1 In PACU II 04/06/21 13:57:00 Ready for PACU II 04/06/21 15:30:00 Discharge Discharge from PACU 04/06/21 15:30:00 II Last Modified By: Terese Kumar Rn 04/06/21 15:54:41 Finalized By: BO ALEX Document Signatures Signed By: Terese Kumar Rn 04/06/21 15:54 BO ALEX 04/07/21 13:01 Unfinalized History Date/Time Username Reason for Unfinalizing Freetext Reason for Unfinalizing 04/07/21 13:01 TOMAS Correct Billing documented in this encounter Plan of Treatment Not on file documented as of this encounter Visit Diagnoses Not on filedocumented in this encounter
--- OUTSIDE RECORDS SUMMARY | 2025-03-19 14:39 | XMS_ITS | Encounter Summary ---
Author Organization [employer] ([place], [place], [place], [place]) Address [address] [place] [address] Care Team Providers Care Network Systems Engineer Name Role Phone Unavailable Primary Care Provider Unavailabl e Encounter Details Date Type Department Care Team (Late st Contact Info) Description 10/06/2020 Transcribed Document [facility] [place] Family Medicine [address] [place] [address] ProviderPat MD [address] [place] [address] Social History Tobacco Use Types [...] - Pat ProviderMD - 10/06/2020 12:27 PM ADMISSIONS GATE ATTENDANT [facility] Main OR PACU Summary Primary Physician: MARION COBOS MD-SNU Finalized Date/Time: 10/06/20 15:35:11 Pt. Name: BUSHRA LUNDBERG D.O.B./Sex: 1965 Female Med Rec #: [id number] Physician: MARION COBOS MD-MIKO Financial #: [id number] Pt. Type: O Room/Bed: Admit/Disch: 10/06/20 08:45:00 - Institution: [facility] Main OR PACU I Case Times Entry 1 In PACU I 10/06/20 13:20:00 Ready for PACU 10/06/20 14:25:00 Discharge Discharge from PACU 10/06/20 15:25:00 I Last Modified By: CINDY AGUIRRE RN 10/06/20 15:34:39 [facility] Main OR PACU Acuity Entry 1 Start Time 10/06/20 14:25:00 Stop Time 10/06/20 15:25:00 Acuity Level [facility] PACU Acuity I Last Modified By: CINDY AGUIRRE RN 10/06/20 15:35:08 Finalized By: CINDY AGUIRRE, RN Document Signatures Signed By: CINDY AGUIRRE RN 10/06/20 15:35 documented in this encounter Plan of Treatment Not on file documented as of this encounter Visit Diagnoses Not on filedocumented in this encounter
--- OUTSIDE RECORDS SUMMARY | 2025-03-19 14:39 | XMS_ITS | Encounter Summary ---
Author Organization [employer] ([place], [place], [place], [place]) Address [address] [place] [address] Care Team Providers Care Business Executive Name Role Phone Unavailable Primary Care Provider Unavailabl e Encounter Details Date Type Department Care Team (Late st Contact Info) Description 10/06/2020 Transcribed Document [facility] [place] [address] [place] [address] ProviderPat MD [address] [place] [address] Social History Tobacco Use Types [...] - Pat ProviderMD - 10/06/2020 12:27 PM DIGITAL PRE PRESS OPERATOR [facility] Main OR Preop Summary Primary Physician: MARION COBOS MD-SNU Finalized Date/Time: 10/06/20 15:23:47 Pt. Name: BUSHRA LUNDBERG D.O.B./Sex: 1965 Female Med Rec #: [id number] Physician: MARION COBOS MD-SNU Financial #: [id number] Pt. Type: O Room/Bed: Admit/Disch: 10/06/20 08:45:00 - Institution: [facility] PreOp Case Times Entry 1 In Preop 10/06/20 09:48:00 Ready for Holding n/a Room Patient Ready for 10/06/20 10:45:00 Surgery Patient Out of Preop 10/06/20 11:55:00 Patient Out of n/a Holding Room Last Modified By: Radha Hawley RN 10/06/20 12:19:10 [facility] PreOp Case Times Audit 10/06/20 12:19:10 Key Filer: BRITTON Modifier: [email or web address] <+> 1 Patient Out of Preop Finalized By: Radha Hawley, RN Document Signatures Signed By: Radha Hawley RN 10/06/20 15:23 Electronically signed by Ashwin [facility] Conversion Retail Tire Sales Manager Cerner at 01/07/2023 7:30 PM CDT documented in this encounter Plan of Treatment Not on file documented as of this encounter Visit Diagnoses Not on filedocumented in this encounter
--- OUTSIDE RECORDS SUMMARY | 2025-03-19 14:39 | XMS_ITS | Encounter Summary ---
Author Organization [employer] ([place], [place], [place], [place]) Address [address] [place] [address] Care Team Providers Care Music Adapter Name Role Phone Unavailable Primary Care Provider Unavailabl e Encounter Details Date Type Department Care Team (Late st Contact Info) Description 04/06/2021 Transcribed Document [facility] Neurology - [facility] [address] [facility] [address] [place] [address] Srinivas Melendez MD [address] [place] [address] Social History Tobacco Use Types [...] Note - Srinivas Melendez MD - 04/06/2021 10:08 AM EDT Patient: BUSHRA ABDI Age: 56 years Sex: Female : 1965 Associated Diagnoses: None Author: CRYSTAL PETER APRN Chief Complaint neck, RUE pain Review of Systems ROS reviewed as documented in chart no change since last seen by surgeon Health Status Allergies: Allergic Reactions (Selected) No Known Medication Allergies, Allergies (1) Active Reaction No Known Medication Allergies None Documented Current medications: (Selected) Documented Medications Documented Cymbalta 30 mg oral delayed release capsule: 1 Cap, Oral, Daily, 0 Refill(s) Lipitor 10 mg oral tablet: 1 Tab, Oral, Daily, 30 Tab, 0 Refill(s) Vitamin D3 50,000 units oral capsule: 1 Cap, Oral, Weekly, 12 Cap, 0 Refill(s) amitriptyline 25 mg oral tablet: 1 Tab, Oral, At Bedtime, 0 Refill(s) hydroCHLOROthiazide-lisinopril 12.5 mg-10 mg oral tablet: 1 Tab, Oral, Daily, 0 Refill(s) levothyroxine 175 mcg (0.175 mg) oral tablet: 1 Tab, Oral, Daily, 60 Tab, 0 Refill(s) multivitamin: Daily, 0 Refill(s) omeprazole 10 mg oral delayed release capsule: 1 Cap, Oral, BID, 0 Refill(s) oxybutynin 10 mg/24 hr oral tablet, extended release: 1 Tab, Oral, Daily, 0 Refill(s) pregabalin 75 mg oral capsule: 1 Cap, Oral, BID, 0 Refill(s), Home Medications (10) Active amitriptyline 25 mg oral tablet 25 mg = 1 Tab, Oral, At Bedtime Cymbalta 30 mg oral delayed release capsule 30 mg = 1 Cap, Oral, Daily hydroCHLOROthiazide-lisinopril 12.5 mg-10 mg oral tablet 1 Tab, Oral, Daily levothyroxine 175 mcg (0.175 mg) oral tablet 175 mcg = 1 Tab, Oral, Daily Lipitor 10 mg oral tablet 10 mg = 1 Tab, Oral, Daily multivitamin , Daily omeprazole 10 mg oral delayed release capsule 10 mg = 1 Cap, Oral, BID oxybutynin 10 mg/24 hr oral tablet, extended release 10 mg = 1 Tab, Oral, Daily pregabalin 75 mg oral capsule 75 mg = 1 Cap, Oral, BID Vitamin D3 50,000 units oral capsule 1,250 mcg = 1 Cap, Oral, Weekly , No qualifying data available Problem list: All Problems PN (peripheral neuropathy) / SNOMED CT 926392652 / Confirmed Neck pain / SNOMED CT 745075593 / Confirmed Hypothyroid / SNOMED CT 09498627 / Confirmed HTN (hypertension) / SNOMED CT 7948193906 / Confirmed HLD (hyperlipidemia) / SNOMED CT 59525889 / Confirmed GERD (gastroesophageal reflux disease) / SNOMED CT 076642458 / Confirmed Depression / SNOMED CT 66985719 / Confirmed Back pain / SNOMED CT 238746368 / Confirmed At risk for sleep apnea / IMO 94623848 / Confirmed Anxiety / SNOMED CT 55822656 / Confirmed, Active Problems (10) Anxiety At risk for sleep apnea Back pain Depression GERD (gastroesophageal reflux disease) HLD (hyperlipidemia) HTN (hypertension) Hypothyroid Neck pain with RUE radiculopathy PN (peripheral neuropathy) Histories Past Medical History: No active or resolved past medical history items have been selected or recorded. Family History: No family history items have been selected or recorded. Procedure history: partial hysterectomy. gastric sleeve. colonoscopy. EGD. neck surgery. Social History Social & Psychosocial Habits Alcohol 04/01/2021 Alcohol Use History, Social Habits No Alcohol Use in Last Twelve Months No Substance Abuse 04/01/2021 Recreational Drug Use History No Recreational Drug Use Last 12 Months No Tobacco 10/05/2020 Smoking Status Former smoker, quit more 04/01/2021 Smoking Status Former smoker, quit more Smokeless Tobacco Status Never Smokeless Tobacco Use History None Month Tobacco Last Used quit almost three years ago Second Hand Smoke Exposure No . Physical Examination VS/Measurements No qualifying data available General: Alert and oriented, No acute distress, [...] axilla, groin. Musculoskeletal: painful ROM neck, RUE weakness, LLE weakness. Integumentary: Warm, Dry, [place]. Neurologic: Alert, Oriented. Psychiatric: Cooperative, Appropriate mood & affect. Review / Management Results review: Labs (Last four charted values) WBC 6.8 (APR 04) HB 14.1 (APR 04) HCT 44.8 (APR 04) Plt 274 (APR 04) Na 141 (APR 04) K 4.8 (APR 04) Cl 108 (APR 04) CO2 31 (APR 04) BUN 10 (APR 04) Cr 0.80 (APR 04) Glu R 84 (APR 04) Ca 9.2 (APR 04) . Impression and Plan Condition: Stable. documented in this encounter Plan of Treatment Not on file documented as of this encounter Visit Diagnoses Not on filedocumented in this encounter
--- OUTSIDE RECORDS SUMMARY | 2025-03-19 14:39 | XMS_ITS | Encounter Summary ---
Author Organization [employer] ([place], [place], [place], [place]) Address [address] [place] [address] Care Team Providers Care Roving Department End Finder Name Role Phone Unavailable Primary Care Provider Unavailabl e Encounter Details Date Type Department Care Team (Late st Contact Info) Description 04/06/2021 Transcribed Document [facility] [place] Family Medicine [facility] [place] [address] ProviderPat MD [address] [place] [address] Social History Tobacco Use Types Packs/Day Years Used Date Smoking Tobacco: Never Assessed Comments Unknown Sex and Gender Information Value Date Recorded Sex Assigned at Female 03/14/2022 5:32 PM CDT Legal Sex Female 5:32 PM CDT Gender Identity Female 03/14/2022 5:32 PM CDT Sexual Orientation Not on file documented as of this encounter Miscellaneous Notes * Cerner Conversion Note - Pat Marcum MD - 04/06/2021 1:05 PM CDT Patient Education Materials Follows: Anterior Cervical Diskectomy and Fusion, Care After [...] and water are not available, use hand supervisor leaf spring fabrication. ? Change your dressing as told by [...] Managing pain, stiffness, and swelling ??? Take blop-pkx-ukhihkc and prescription medicines only as told by your health care provider. ??? If directed, put ice on the injured area. ? If you have a removable brace, remove it as told by your health care provider. ? Put ice in a plastic bag. ? Place a towel between your skin and the bag. ? Leave the ice on for 20 minutes, 2?3 times a day. Activity ??? Return to [...] keep your urine pale yellow. ? Take zxth-pzi-kopvxdf or prescription medicines. ? Eat foods that [...] provider. Document Revised: 05/29/2019 Document Reviewed: 05/29/2019 [employer] Patient Education ? 2020 [employer] Pharmacology General Anesthesia, Adult, Care After This sheet [...] activities are safe for you. ??? Take ucye-txj-tlodqee and prescription medicines only as told by [...] provider. Document Revised: 09/06/2018 Document Reviewed: 04/19/2018 [employer] Patient Education ? 2020 [employer]. documented in this encounter Plan of Treatment Not on file documented as of this encounter Visit Diagnoses Not on filedocumented in this encounter
--- OUTSIDE RECORDS SUMMARY | 2025-03-19 14:39 | XMS_ITS | Encounter Summary ---
Author Organization [employer] ([place], [place], [place], [place]) Address [address] [place] [address] Care Team Providers Care Superintendent Quarry Name Role Phone Unavailable Primary Care Provider Unavailabl e Encounter Details Date Type Department Care Team (Late st Contact Info) Description 10/06/2020 Transcribed Document [facility] [place] [facility] [place] [address] ProviderPat MD [address] [place] [address] Social History Tobacco Use Types [...] Conversion Note - Pat ProviderMD - 10/06/2020 4:28 PM GETTERING OPERATOR Patient Education Materials Follows: Outpatient Surgery, Adult, Care After These instructions provide you with information about caring for yourself after your procedure. Your health care provider may also give you more specific instructions. Your treatment has been planned according to current medical practices, but problems sometimes occur. Call your health care provider if you have any problems or questions after your procedure. What can I expect after the procedure? After the procedure, it is common to have: ??? Tenderness and numbness at the surgical site. ??? Swelling and bruising around the surgical site. ??? Nausea. Follow these instructions at home: For at [...] Take care of children on your own. Activity ??? Return to your normal activities as told by your health care provider. Ask your health care provider what activities are safe for you. ??? Do not lift anything that is heavier than 10 lb (4.5 kg), or the limit that your health care provider tells you, until your health care provider says it is okay. ??? Do not play contact sports until your health care provider says it is okay. Incision care ??? Follow instructions from your health care provider about how to take care of an incision, if you have one. Make sure you: ? Wash your hands with soap and water before you change your bandage (dressing). If soap and water are not available, use hand chairman & chief executive officer. ? Change your dressing as told by [...] for signs of infection. Check for: ? More redness, swelling, or pain. ? More fluid or blood. ? Warmth. ? Pus or a bad smell. Medicines ??? Take mpfs-ixr-mctmjeg and prescription medicines only as told by your health care provider. ??? Do not drive or use heavy machinery while taking prescription pain medicines. Eating and drinking ??? Follow the diet recommended by your health care provider. ??? When you are hungry, begin eating light and bland foods such as toast. Gradually return to your regular diet. ??? If you vomit: ? Drink water, juice, or soup when you can drink without vomiting. ? Make sure you have little or no nausea before eating solid foods. General instructions ??? If you have sleep apnea, surgery and certain medicines can increase your risk for breathing problems. Follow instructions from your HCP about wearing your sleep device: ? Anytime you are sleeping, including during daytime naps. ? While taking prescription pain medicines, sleeping medicines, or medicines that make you drowsy. ??? Do not use any tobacco products, such as cigarettes, chewing tobacco, and e-cigarettes, for as long as possible. ??? If you smoke, do not smoke without supervision. ??? Keep all follow-up visits as told by your health care provider. This is important. Contact a health care provider if: ??? You have more redness, swelling, or pain around your incision. ??? You have more fluid or blood coming from your incision. ??? Your incision feels warm to the touch. ??? You have pus or a bad smell coming from your incision. ??? You have a fever. ??? You feel light-headed or you faint. ??? You develop a rash. ??? You keep feeling nauseous or keep vomiting. ??? You have very bad pain, even after taking the medicines your health care provider has prescribed or recommended. ??? You have constipation. Get help right away if: ??? You are unable to pass urine. ??? You have trouble breathing. Summary ??? Have a responsible adult stay with you for at least 24 hours after the procedure. ??? Nausea is common after a procedure. Make sure you have little or no nausea before eating solid foods. Follow the diet recommended by your health care provider. ??? Ask your health care provider what activities are safe for you. This information is not intended to replace advice given to you by your health care provider. Make sure you discuss any questions you have with your health care provider. Document Released: 12/24/2016 Document Revised: 12/02/2018 Document Reviewed: 12/24/2016 [employer] Patient Education ? 2020 [employer]. Electronically signed by Monroe Christopher Conversion Application Support Intern Stacyner at 01/07/2023 7:33 PM CDT documented in this encounter Plan of Treatment Not on file documented as of this encounter Visit Diagnoses Not on filedocumented in this encounter
--- OUTSIDE RECORDS SUMMARY | 2025-03-19 14:39 | XMS_ITS | Encounter Summary ---
Author Organization [employer] ([place], [place], [place], [place]) Address [address] [place] [address] Care Team Providers Care Drag Car Racer Name Role Phone Unavailable Primary Care Provider Unavailabl e Encounter Details Date Type Department Care Team (Late st Contact Info) Description 04/06/2021 Transcribed Document [facility] [place] Family Medicine [facility] [place] [address] ProviderPat MD [address] [place] [address] Social History Tobacco Use Types [...] Pat ProviderMD - 04/06/2021 11:42 AM CDT [facility] Main OR Preop Summary Primary Physician: MARION COBOS MD-SNU Finalized Date/Time: 04/06/21 12:32:08 Pt. Name: BUSHRA LUNDBERG D.O.B./Sex: 1965 Female Med Rec #: [id number] Physician: MARION COBOS MD-SNU Financial #: [id number] Pt. Type: O Room/Bed: ASA/3 Admit/Disch: 04/06/21 06:47:00 - Institution: [facility] PreOp Case Times Entry 1 In Preop 04/06/21 08:53:00 Ready for Holding n/a Room Patient Ready for 04/06/21 10:00:00 Surgery Patient Out of Preop 04/06/21 11:11:00 Patient Out of n/a Holding Room Last Modified By: ANA LORD RN 04/06/21 12:32:01 [facility] PreOp Case Times Audit 04/06/21 12:32:01 Electronic Engraver: KODAK Modifier: MISTYHATFIELD <+> 1 Patient Out of Preop 04/06/21 10:12:28 Electronic Engraver: KODAK Modifier: MISTYHATFIELD 1 <*> Patient Ready for Surgery 04/06/21 10:12:00 Finalized By: ANA LORD RN Document Signatures Signed By: ANA LORD RN 04/06/21 12:32 Electronically signed by Ashwin [facility] Conversion Personal Banker Cerner at 01/07/2023 7:30 PM CDT documented in this encounter Plan of Treatment Not on file documented as of this encounter Visit Diagnoses Not on filedocumented in this encounter
--- OUTSIDE RECORDS SUMMARY | 2025-03-19 14:40 | XMS_ITS | Encounter Summary ---
Author Organization [employer] ([place], [place], [place], [place]) Address [address] [place] [address] Care Team Providers Care Social Work Therapist Name Role Phone Unavailable Primary Care Provider Unavailabl e Encounter Details Date Type Department Care Team (Late st Contact Info) Description 10/06/2020 Transcribed Document [facility] Family Medicine [address] [place] [address] ProviderPat MD [address] [place] [address] Social History Tobacco Use Types [...] Conversion Note - Pat ProviderMD - 10/06/2020 4:32 PM SCAFFOLD WORKER [facility] [place] [address] BUSHRA LUNDBERG :1965 Visit Time:10/06/2020 What to do next Your Diagnosis Cervical disc disorder with radiculopathy, unspecified cervical region, Cervical disc disorder with radiculopathy, unspecified cervical region Instructions From Your Care Team Diet after Discharge: Resume usual diet as tolerated, Do not drink any alcoholic beverages, Drink at least 8-10 glasses of water per day_ Activity after Discharge: _, Rest and relax today, No strenuous activity no bending, lifting, twisting, or overhead work for 8 weeks Lifting Restrictions: No heavy lifting over 10 pounds Driving after Discharge: Do not drive until 24 hours after no longer taking pain medications Showering/Bathing: May shower in 3 days keep incision dry , cover with plastic for 1 week, No tub bathing, soaking or swimming Notify Provider of: fever or chills , excessive bleeding, pain , swelling , loss of sensation, go to ER IF DIFFICULTY BREATHING. Wound/Incision Care after Discharge: Keep operative site/wound site clean and dry REMOVE DRESSING IN 3 DAYS , LEAVE STERI STRIPS IN PLACE IF PRESENT, _ Medical Equipment for Home Use: ICE PACK 20 MIN EVERY HOUR NEEDED FOR 2 DAYS WALK 3 TO 5 TIMES A DAY TAKE PAIN MEDICATION WITH FOOD, TAKE STOOL SOFTENER 2 TO 3 TIMES A DAY WHILE ON PAIN MEDICATION [facility] ACDF INSTRUCTIONS Discharge Follow Up Instructions: f/u 4-5 weeks post op with AP/lateral x-rays of the cervical spine. Follow-Up Appointments Follow Up with MARION SIMON When Within 1 month Comments Follow-up as instructed [facility] AT [facility] THEN FOLLOW UP WITH dr simon afterwards Where: [address] (SUNDAY ONLY) [place] [address]- [place] (1) Medications What How Much When Instructions Next Dose amitriptyline (amitriptyline 25 mg oral tablet) Oral At Bedtime atorvastatin (Lipitor 10 mg oral tablet) 1 Tablet(s) Oral Every Day DULoxetine (Cymbalta 30 mg oral delayed release capsule) 1 Capsule(s) Oral Every Day gabapentin (gabapentin 800 mg oral tablet) Oral Two Times A Day hydrochlorothiazide-lisinopril (hydroCHLOROthiazide-lisinopril 12.5 mg-10 mg oral tablet) 1 Tablet(s) Oral Every Day levothyroxine (levothyroxine 200 mcg (0.2 mg) oral capsule) 1 Capsule(s) Oral Every Day multivitamin Every Day omeprazole 20 Milligram(s) Oral Two Times A Day oxybutynin (oxybutynin 10 mg/ 24 hr oral tablet, extended release) 1 Tablet(s) Oral Every Day Take your medications faithfully. Do NOT [...] and medications per pharmacy guidance. Education Materials Outpatient Surgery, Adult, Care After These instructions [...] and water are not available, use hand limousine driver. ? Change your dressing as told by [...] or a bad smell. Medicines ??? Take [id number] and prescription medicines only as told by [...] 12/24/2016 Document Revised: 12/02/2018 Document Reviewed: 12/24/2016 [employer] Patient Education ?? 2020 [employer] Emergency Awareness and Preventative Care STROKE is [...] Assistance with quitting is available by contacting 5-450-ZHXA-NOW. This is a free resource providing counseling, [...] This Visit (last charted value for your 10/06/2020 visit) Hematology 10/06/2020 10:47 AM Hemoglobin POC: 15.6 Gram/dL -- Normal range between ( 12.0 and 17.0 ) Hematocrit POC: 46.0 % -- Normal range between ( 38.0 and 51.0 ) 10/06/2020 10:37 AM WBC: 6.8 K/uL -- Normal range between ( 4.5 and 10.5 ) RBC: 4.57 Million/uL -- Normal range between ( 3.93 and 5.22 ) Hct: 43.1 % -- Normal range between ( 34.1 and 44.9 ) Hgb: 14.2 g/dL -- Normal range between ( 11.2 and 15.7 ) Platelet Count: 291 K/uL -- Normal range between ( 163 and 369 ) MCH: 31.1 pg -- Normal range between ( 25.6 and 32.2 ) MCHC: 32.9 Gram/dL -- Normal range between ( 32.2 and 36.5 ) MCV: 94.3 fL -- Normal range between ( 79.0 and 94.8 ) Slide Review: No RDW: 13.3 % -- Normal range between ( 11.7 and 14.9 ) MPV: 9.9 fL -- Normal range between ( 9.4 and 12.4 ) Microbiology 10/04/2020 10:47 AM Novel Coronavirus 2019: Negative Blood Bank 10/06/2020 10:38 AM ABO/Rh Repeat: A POS 10/06/2020 10:37 AM ABO/Rh (ECHO): A POS Antibody Screen: Negative ABSC General Chemistry 10/06/2020 10:47 AM Potassium POC: 4.6 mmol/L -- Normal range between ( 3.5 and 4.9 ) 10/06/2020 10:37 AM Creatinine Level: 0.80 mg/dL -- Normal range between ( 0.55 and 1.02 ) Sodium Level: 140 mmol/L -- Normal range between ( 136 and 146 ) Potassium Level: 4.0 mmol/L -- Normal range between ( 3.5 and 5.1 ) Chloride Level: 107 mmol/L -- Normal range between ( 102 and 112 ) Carbon Dioxide Level: 29 mmol/L -- Normal range between ( 21 and 32 ) Anion Gap: 8 -- Normal range between ( 9 and 20 ) Bun/Creatinine: 8.8 -- Normal range between ( 8.0 and 20.0 ) Calcium Level: 9.4 mg/dL -- Normal range between ( 8.4 and 10.1 ) eGFR : >60 mL/min/1.73m2 eGFR NonAfrican: >60 mL/min/1.73m2 Glucose Level: 82 mg/dL -- Normal range between ( 74 and 106 ) Blood Urea Nitrogen: 7 mg/dL -- Normal range between ( 7 and 22 ) Patient Name:BUSHRA LUNDBERG I have received this information and was given the opportunity to ask questions. Patient/High Frequency Mill Operator Name: Patient/High Frequency Mill Operator Signature: Relationship to Patient: Clinician/Hospital High Frequency Mill Operator Signature: Date: Electronically signed by Ashwin, [facility] Conversion Architectural Wood Model Maker Armen at 01/07/2023 7:29 PM CDT documented in this encounter Plan of Treatment Not on file documented as of this encounter Visit Diagnoses Not on filedocumented in this encounter
--- OUTSIDE RECORDS SUMMARY | 2025-03-19 14:40 | XMS_ITS | Clinical Summary ---
Author Organization [employer] ([place], [place], [place], [place]) Address [address] [place] [address] Care Team Providers Care Sail Cutter Name Role Phone Unavailable Primary Care Provider [...]
--- OUTSIDE RECORDS SUMMARY | 2025-03-19 14:40 | XMS_ITS | Encounter Summary ---
Author Organization [employer] ([place], [place], [place], [place]) Address [address] [place] [address] Care Team Providers Care Splitter Machine Name Role Phone Unavailable Primary Care Provider Unavailabl e Encounter Details Date Type Department Care Team (Late st Contact Info) Description 10/05/2020 Transcribed Document [facility] [place] [facility] [place] [facility] [place] [address] ProviderPat MD [address] [place] [address] Social History Tobacco Use Types Packs/Day Years Used Date Smoking Tobacco: Never Assessed Comments Unknown Sex and Gender Information Value Date Recorded Sex Assigned at Female 03/14/2022 5:32 PM CDT Legal Sex Female 5:32 PM CDT Gender Identity Female 03/14/2022 5:32 PM CDT Sexual Orientation Not on file documented as of this encounter Miscellaneous Notes * Cerner Conversion Note - Historical ProviderMD - 10/05/2020 4:24 PM STEEPING PRESS OPERATOR PAT Adult Entered On: 10/05/2020 16:28 EST Performed On: 10/05/2020 16:24 EST by Radha Hawley RN Height and Weight, Clinical Dosing Height Source : Measured Height Entry Format : [place] Height, Feet : 5 ft(Converted to: 152 cm, 60 Inch) Height, Inches : 3 Inch(Converted to: 0 ft 3 Inch, 7.62 cm) Clinical Height : 160.02 cm Weight Source : Standing scale Weight Entry Format : [place] Clinical Dosing Weight : 110.91 kg Weight, Pounds : 244 lb Body Surface Area (BSA) : 2.11 m2 Body Mass Index : 43.3 kg/m2 (>HHI) [place] Body Weight : 52 kg Radha Hawley RN - 10/06/2020 9:55 EST Health Histories Smoking Status : Former smoker, quit more than 30 days ago Smokeless Tobacco Status : Never Radha Hawley RN - 10/05/2020 16:24 EST Social History (As Of: 10/05/2020 16:28:58 EST) Tobacco: Former smoker, quit more than 30 days ago Smoking Status. (Last Updated: 10/05/2020 16:26:15 EST by Radha Hawley RN) Infectious Disease History Has the patient ever been tested for COVID-19? : Yes, Patient stated results Negative Date of COVID-19 test known? : Yes Date of COVID-19 Test : 10/04/2020 EST Does patient have symptoms of COVID-19? : No COVID19 Screening : No Experiencing Infectious Disease Symptoms : No symptoms Physical contact outside [place] in the last 30 days : No Infectious Disease History : Chicken pox/Shingles Tuberculosis Symptoms : None Radha Hawley RN - 10/05/2020 16:24 EST COVID19 PreProcedure Screening Is this an Emergent or Add on Procedure? : No Date PreProcedure COVID-19 test known? : Yes Date of PreProcedure COVID-19 : 10/04/2020 EST Has patient been isolated since the test : Yes Exposed to COVID19 symptoms since test? : No Radha Hawley RN - 10/06/2020 9:55 EST Anesthesia/Transfusion History Family History of Anesthesia Reaction : No prior transfusion(s) Transfusion History : Prior anesthesia without reaction Family History of Anesthesia Reaction : None Radha Hawley RN - 10/05/2020 16:24 EST Advance Directive Patient has Advance Directive *Q : No, patient refuses Advance Directive information Radha Hawley RN - 10/05/2020 16:24 EST [place] Suicide Severity Rating Scale (C-SSRS) CSSRS Past Month Wish to be : No CSSRS Past Month Suicidal Thoughts : No CSSRS Lifetime Suicide Behavior : No Suicide Severity Rating Score : 0 Suicide Severity Rating : No Additional Care Required at this time Radha Hawley RN - 10/05/2020 16:24 EST Psychosocial History Currently in Unsafe Situation : No Radha Hawley RN - 10/05/2020 16:24 EST General Info Support Person/Pt Rep Name : Raymond Lundberg [phone] Want Family/Rep/Phys Notified of Admit : No Emergency Contact #1 : x Emergency Contact #1 Phone Number : x Emergency Contact #1 Relationship : x Emergency Contact #2 : x Emergency Contact #2 Phone Number : x Emergency Contact #2 Relationship : x Chief Complaint : x Primary Language : [place] Citizen Communication Barrier : None Tunnel Miner Needed : No Radha Hawley RN - 10/05/2020 16:24 EST Vikram Scale Vikram Sensory Perception : No impairment Vikram Moisture : Rarely moist Vikram Activity : Walks occasionally Vikram Mobility : Slightly limited Vikram Nutrition : Adequate Vikram Friction and Shear : No apparent problem Vikram Score : 20 Radha Hawley RN - 10/05/2020 16:24 EST Sleep Apnea Risk Assmt BMI Greater Than 35 kg/m2 : Yes Neck Circumference Greater Than 40 cm : No STOP-BANG Sleep Apnea Risk Level Score : 3 Radha Hawley RN - 10/06/2020 9:55 EST Hx of Obstructive Sleep Apnea Diagnosis : No Snore Loudly : No Tired, Fatigued, or Sleepy During Day : No Observed Stopping Breathing During Sleep : No Have/Are Being Treated for Hypertension : Yes Age over 50 Years Old : Yes Gender Male : No Radha Hawley RN - 10/05/2020 16:24 EST Electronically signed by Monroe Christopher Conversion Director Of Quantitative Research Cerner at 01/07/2023 7:35 PM CDT documented in this encounter Plan of Treatment Not on file documented as of this encounter Visit Diagnoses Not on filedocumented in this encounter
--- OUTSIDE RECORDS SUMMARY | 2025-03-19 14:40 | XMS_ITS | Encounter Summary ---
Author Organization [employer] ([place], [place], [place], [place]) Address [address] [place] [address] Care Team Providers Care Telesales Team Leader Name Role Phone Unavailable Primary Care Provider Unavailabl e Encounter Details Date Type Department Care Team (Late st Contact Info) Description 04/06/2021 Transcribed Document [facility] Family [facility] [place] [address] ProviderPat MD [address] [place] [address] Social History Tobacco Use Types [...] Pat ProviderMD - 04/06/2021 11:42 AM CDT [facility] Main OR PACU Summary Primary Physician: MARION COBOS MD-SNRaquel Finalized Date/Time: 04/06/21 14:03:32 Pt. Name: BUSHRA LUNDBERG D.O.B./Sex: 1965 Female Med Rec #: [id number] Physician: MARION COBOS MD-SNU Financial #: [id number] Pt. Type: O Room/Bed: ASA/3 Admit/Disch: 04/06/21 06:47:00 - Institution: [facility] Main OR PACU I Case Times Entry 1 In PACU I 04/06/21 13:05:00 Ready for PACU 04/06/21 13:55:00 Discharge Discharge from PACU 04/06/21 13:55:00 I Last Modified By: COSMO PIERRE RN 04/06/21 14:03:24 [facility] Main OR PACU I Case Times Audit 04/06/21 14:03:24 Greenhouse Manager: [id number] Modifier: [id number] <+> 1 Ready for PACU Discharge <+> 1 Discharge from PACU I Finalized By: COSMO PIERRE RN Document Signatures Signed By: COSMO PIERRE RN 04/06/21 14:03 Electronically signed by Ashwin [facility] Conversion Dicer Machine Operator Cerner at 01/07/2023 7:30 PM CDT documented in this encounter Plan of Treatment Not on file documented as of this encounter Visit Diagnoses Not on filedocumented in this encounter
--- OUTSIDE RECORDS SUMMARY | 2025-03-19 14:40 | XMS_ITS | Clinical Summary ---
Author Organization Healthcare Address [address] [id number] Care Team Providers Care Automation Analyst Name Role Phone Raymond Duarte MD Primary Care Provider [phone] Family History Medical History Relation Name Comments Hypertension Father Hypertension Mother Cardiac disorder Other 1 Other cancer Other 2 Relation Name Status Comments Father Mother Other 1 Other 2 Social History Tobacco Use Types Packs/Day Years Used Date Smoking Tobacco: Every Day Comments Unknown Sex and Gender Information Value Date Recorded Sex Assigned at Not on file Legal Sex Female 5:58 PM EDT Gender Identity Not on file Sexual Orientation Not on file Last Filed Vital Signs Vital Sign Reading Time Taken Comments Blood Pressure - - Pulse - - Temperature - - Respiratory Rate - - Oxygen Saturation - - Inhaled Oxygen Concentration - - Weight 126 kg (278 lb 3.9 oz) 03/31/2016 1:34 PM EDT Height 162.6 cm (5' 4 ) 03/31/2016 1:34 PM EDT Body Mass Index 47.76 03/31/2016 1:34 PM EDT Plan of Treatment Not on file Care Teams Automation Analyst Relationship Specialty Start Date End Date Raymond Duarte MD [address] [place] [address] PCP - General 01/28/21
--- OUTSIDE RECORDS SUMMARY | 2025-03-19 14:40 | XMS_ITS | Encounter Summary ---
Author Organization [employer] ([place], [place], [place], [place]) Address [address] [place] [address] Care Team Providers Care Stave Inspector Name Role Phone Unavailable Primary Care Provider Unavailabl e Encounter Details Date Type Department Care Team (Late st Contact Info) Description 10/05/2020 Transcribed Document [facility] [place] [address] [place] [address] ProviderPat MD [address] [place] [address] Social History Tobacco Use Types [...] Conversion Note - Historical ProviderMD - 10/05/2020 1:54 PM STACKER STRAIGHTENER UM Authorization Entered On: 10/05/2020 13:54 EST Performed On: 10/05/2020 13:54 EST by REKHA BURNHAM Chemical Technician Primary Insurance Authorization Authorization and Policy Numbers : Insurance 1 Health Plan: [employer] [place] Policy Number: [id number] Authorization Number: Authorization Comments-Primary : pt is bruno for OUT PT Cervical Discectomy Fusion Anterior on Sun10-06-20 Historical Authorization Comments-Primary : No Authorization Comments Found REKHA BURNHAM, Chemical Technician - 10/05/2020 13:54 EST documented in this encounter Plan of Treatment Not on file documented as of this encounter Visit Diagnoses Not on filedocumented in this encounter
--- OUTSIDE RECORDS SUMMARY | 2025-03-19 14:40 | XMS_ITS | Encounter Summary ---
Author Organization [employer] ([place], [place], [place], [place]) Address [address] [place] [address] Care Team Providers Care Wireless Network Engineer Name Role Phone Unavailable Primary Care Provider Unavailabl e Encounter Details Date Type Department Care Team (Late st Contact Info) Description 04/01/2021 Transcribed Document [facility] [place] [facility] [place] [address] ProviderPat MD [address] [place] [address] Social History Tobacco Use Types [...] Cerner Conversion Note - Pat ProviderMD - 04/01/2021 9:58 AM CDT PAT Adult Entered On: 04/01/2021 10:00 EDT Performed On: 04/01/2021 9:58 EDT by Anthony Cullen Rn Vital Measurements Temperature Source : Temporal artery scanning Temperature Mode : Fahrenheit Temperature, Fahrenheit : 97.8 Deg F Clinical Temperature, C : 36.6 Deg C Pulse Method : Pulse Oximetry Peripheral Pulse Rate : 53 bpm (LOW) Respiratory Rate : 18 Breaths/Min Blood Pressure Source : Non-Invasive BP Device Blood Pressure Position : Sitting Systolic Blood Pressure : 119 mmHg Diastolic Blood Pressure : 59 mmHg (LOW) Oxygen Saturation : 100 % Oxygen Therapy Mode : Room air ROBERT HOLBROOK RN - 04/04/2021 8:21 EDT Height and Weight, Clinical Dosing Height Source : Measured Height Entry Format : [place] Height, Feet : 0 ft(Converted to: 0 cm, 0 Inch) Height, Inches : 63.5 Inch(Converted to: 5 ft 3 Inch, 161.29 cm) Clinical Height : 161.29 cm Weight Source : Standing scale Weight Entry Format : [place] Clinical Dosing Weight : 110.94 kg Weight, Pounds : 244 lb Weight, Ounces : 1 oz Body Surface Area (BSA) : 2.12 m2 Body Mass Index : 42.6 kg/m2 (>HHI) [place] Body Weight : 53 kg ROBERT HOLBROOK RN - 04/04/2021 8:07 EDT Health Histories Smoking Status : Former smoker, quit more than 30 days ago Smokeless Tobacco Status : Never Implant/Device Type, Egg Buyer and Model : hardware in neck Anthony Cullen Rn - 04/01/2021 9:58 EDT Social History (As Of: 04/01/2021 10:00:46 EDT) Tobacco: Former smoker, quit more than 30 days ago Smoking Status. (Last Updated: 10/05/2020 16:26:15 EST by Radha Hawley RN) Former smoker, quit more than 30 days ago Smoking Status. Never Smokeless Tobacco Status. None Smokeless Tobacco Use History. Last Used: quit almost three years ago . Second Hand Smoke Exposure: No. (Last Updated: 04/01/2021 09:58:02 EDT by Anthony Cullen, Rn) Alcohol: Alcohol Use History No. Use in Last 12 Months: No. (Last Updated: 04/01/2021 09:58:02 EDT by Anthony Cullen, Rn) Substance Abuse: Drug Use Hx: No. Use in Last 12 Months: No. (Last Updated: 04/01/2021 09:58:02 EDT by Anthony Cullen, Rn) Infectious Disease History Has the patient ever been tested for COVID-19? : No, Screening today for COVID-19 Date of COVID-19 test known? : Yes Date of COVID-19 Test : 04/04/2021 EDT Infectious Disease History : Chicken pox/Shingles ROBERT HOLBROOK RN - 04/04/2021 8:43 EDT Anesthesia/Transfusion History Family History of Anesthesia Reaction : No prior transfusion(s) Blood Transfusion Acceptable to Patient : Yes Transfusion History : Prior anesthesia without reaction Family History of Anesthesia Reaction : None Anthony Cullen Rn - 04/01/2021 9:58 EDT Functional Assessment Functional ADL Evaluation Index EBN Bathing : Independent (2) Dressing : Independent (2) Toileting : Independent (2) Transferring Bed or Chair : Independent (2) Continence : Independent (2) Feeding : Independent (2) Anthony Cullen Rn - 04/01/2021 9:58 EDT ADL Index Score : 12 Anthony Cullen Rn - 04/01/2021 9:58 EDT Advance Directive Patient has Advance Directive *Q : No, patient refuses Advance Directive information Anthony Cullen Rn - 04/01/2021 9:58 EDT Spiritual/Cultural Needs Any Spiritual/Cultural Needs or Requests : Yes Spiritual/Cultural Needs Comment : 04/06 Nondenominational Preference : Cheondoism ([employer] [place]) Spiritual/Cultural Needs Comment : 04/06 Anthony Cullen Rn - 04/01/2021 9:58 EDT [place] Suicide Severity Rating Scale (C-SSRS) CSSRS Past Month Wish to be : No CSSRS Past Month Suicidal Thoughts : No CSSRS Lifetime Suicide Behavior : No Suicide Severity Rating Score : 0 Suicide Severity Rating : No Additional Care Required at this time Anthony Cullen Rn - 04/01/2021 9:58 EDT Psychosocial History Currently in Unsafe Situation : No Anthony Cullen Rn - 04/01/2021 9:58 EDT Teaching/Learning Assessment Barriers To Learning : None evident Individuals Taught : Patient Readiness to Learn : Cooperative ROBERT HOLBROOK RN - 04/04/2021 8:07 EDT Education Topics, Periop Preadmission Perioperative Education Grid Arrival Time/Place : Verbalizes understanding CHG Preoperative Bathing/Cloths : Verbalizes understanding Infection Control : Verbalizes understanding NPO Status/Directions : Verbalizes understanding Preprocedure Preparations : Verbalizes understanding Preprocedure Tests/Labs : Verbalizes understanding Remove Body Piercings : Verbalizes understanding Responsible Adult : Verbalizes understanding Take/Hold Medications Pre-Procedure : Verbalizes understanding Other : Verbalizes understanding (Comment: Bactroban [ROBERT HOLBROOK RN - 04/04/2021 8:07 EDT] ) General Info Legal Guardian : Friend Support Person/Patient Floor Care Specialist : Yes Support Person/Pt Rep Name : Lena Chapman - friend Support Person/Pt Rep Contact Information : [phone] Want Family/Rep/Phys Notified of Admit : No Emergency Contact #1 : ` Emergency Contact #1 Phone Number : ` Emergency Contact #1 Relationship : ` Emergency Contact #2 : ` Emergency Contact #2 Phone Number : ` Emergency Contact #2 Relationship : ` Primary Language : [place]ian Communication Barrier : None Wire Drawing Machine Tender Needed : No Anthony Cullen Rn - 04/01/2021 9:58 EDT Vikram Scale Vikram Sensory Perception : No impairment Vikram Moisture : Rarely moist Vikram Activity : Walks occasionally Vikram Mobility : Slightly limited Vikram Nutrition : Adequate Vikram Friction and Shear : No apparent problem Vikram Score : 20 Anthony Cullen Rn - 04/01/2021 9:58 EDT Sleep Apnea Risk Assmt BMI Greater Than 35 kg/m2 : Yes Neck Circumference Greater Than 40 cm : Yes STOP-BANG Sleep Apnea Risk Level Score : 4 ROBERT HOLBROOK RN - 04/04/2021 8:07 EDT Hx of Obstructive Sleep Apnea Diagnosis : No Snore Loudly : Yes Tired, Fatigued, or Sleepy During Day : No Observed Stopping Breathing During Sleep : No Have/Are Being Treated for Hypertension : No Age over 50 Years Old : Yes Gender Male : No Anthony Cullen Rn - 04/01/2021 9:58 EDT Electronically signed by Monroe Christopher Conversion Mechanical Integrity Engineer Cerner at 01/07/2023 7:36 PM CDT documented in this encounter Plan of Treatment Not on file documented as of this encounter Visit Diagnoses Not on filedocumented in this encounter
[2025-03-19 15:47] LABS: Anion Gap 11.4 mEq/L (5-15); Blood Urea Nitrogen 11 mg/dl (7-17); Calcium 9.1 mg/dl (8.4-10.2); Carbon Dioxide 27 mmol/L (22.0-30.0); Chloride 96 mmol/L (98-107); Creatinine,Serum 0.80 mg/dl (0.52-1.04); Estimated Glomerular Filt Rate 73 ml/min (>60); GFR (African American) 89 ML/MIN (>60); Glucose 85 mg/dl (74-100); Potassium 4.4 mmoL/L (3.5-5.1); Sodium 130 mmol/L (136-145)
== END 2025-03-19 23:59 | disposition home or self-care (01) ==
LOC: LAB 14:37
PROVIDERS: PCP Internal Medicine; Visit Provider Physician Assistant
DX: I10 Essential (primary) hypertension (principal)
CPT/HCPCS: 36415; 80048

== ENCOUNTER 2025-03-23 08:44 | Outpatient (POV) | payer MEDICAID, SELFPAY ==
--- OUTSIDE RECORDS SUMMARY | 2025-03-23 08:47 | XMS_ITS | Encounter Summary ---
Author Organization [employer] ([place], [place], [place], [place]) Address [address] [place] [address] Care Team Providers Care Cardiac Rehabilitation Program Director Name Role Phone Unavailable Primary Care Provider Unavailabl e Encounter Details Date Type Department Care Team (Late st Contact Info) Description 10/06/2020 Transcribed Document [facility] Family Medicine Formerly [facility] [place] [address] ProviderPat MD [facility] [place] [address] Social History Tobacco Use Types [...] - Pat ProviderMD - 10/06/2020 12:27 PM PLASTIC 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 Name: MELANIE LUNDBERGO.B./Sex: 1965 Female Med Rec #: [id number] Physician: MARION COBOS MD-SNU Financial #: [id number] Pt. Type: O Room/Bed: Admit/Disch: 10/06/20 08:45:00 - 10/06/20 16:43:00 Institution: [facility] IntraOp Case Attendance Entry 1 Entry 2 Entry 3 Case Attendee MARION COBOS WASSON, SANDRA D, RN GULLETTE, NELSON, SCRUB MD-SNU TECH Role Performed Surgeon/Proceduralist, Broadcast Checker, First Scrub, First First Time In 10/06/20 [...] A, VITO ELIAS MD-ANS Role Performed Physician physician assistant SHEET METAL SMITH/Nurse Projection Welding Machine Operator Anesthesiologist of Record Time In 10/06/20 11:57:00 [...] #1 JEROMY SAINI, RN Robyn Kumar, Diagnostic Tapper Balance Wheel Screw Hole Role Performed Student Broadcast Checker, Second Nutrition Specialist Time In 10/06/20 11:57:00 10/06/20 11:57:00 10/06/20 [...] Modified By: CLARK JAUREGUI, SAYDA 10/06/20 12:44:32 [facility] IntraOp Case Attendance Audit 10/06/20 13:22:08 Ensemble Member: WASSONSY Modifier: WASSONSY 1 <+> Time Out [...] Procedure Cervical Discectomy Fusion Anterior 10/06/20 12:44:32 Ensemble Member: WASSONSY Modifier: WASSONSY 8 <+> Time Out 8 <*> Procedure Cervical Discectomy Fusion Anterior <+> 9 Case Attendee <+> 9 Role Performed <+> 9 Procedure <+> 10 Case Attendee <+> 10 Role Performed <+> 10 Procedure <+> 10 Other Attendee 10/06/20 12:15:00 Ensemble Member: WASSONSY Modifier: WASSONSY 1 <*> Procedure Cervical [...] Procedure Cervical Discectomy Fusion Anterior 10/06/20 12:14:37 Ensemble Member: WASSONSY Modifier: WASSONSY 1 <+> Time In [...] <+> 8 Role Performed <+> 8 Procedure [facility] IntraOp Case Times Entry 1 Patient In Room Time 10/06/20 11:57:00 Out Room Time 10/06/20 13:18:00 Anesthesia Start Time 10/06/20 11:57:00 Stop Time 10/06/20 13:19:00 Surgery / Procedure Times Start Time 10/06/20 12:27:00 Stop Time 10/06/20 13:12:00 Last Modified By: CLARK JAUREGUI RN 10/06/20 13:13:09 [facility] IntraOp Case Times Audit 10/06/20 13:22:05 Ensemble Member: WASSONSY Modifier: WASSONSY <+> 1 Out Room Time <+> 1 Stop Time 10/06/20 13:13:09 Ensemble Member: WASSONSY Modifier: WASSONSY <+> 1 Stop Time 10/06/20 12:28:55 Ensemble Member: WASSONSY Modifier: WASSONSY <+> 1 Start Time [facility] IntraOp Cautery Entry 1 Entry 2 ESU Identification Cautery Type Monopolar ESU BiPolar ESU Cautery Type Comments ID Number [id number] ID Type Hospital Number Hospital Number Cautery [...] CLARK WATSON RN 10/06/20 12:19:57 10/06/20 12:19:57 [facility] IntraOp Cautery Audit 10/06/20 14:49:40 Ensemble Member: WASSONSY Modifier: WASSONSY 1 <*> Grounding Pad Site Right thigh 10/06/20 12:46:50 Ensemble Member: WASSONSY Modifier: WASSONSY 1 <*> Cautery Type BiPolar ESU 1 <*> Cut Setting 40 1 <*> Bipolar Setting 40 1 <+> Grounding Pad Site 1 <*> ID Number [id number] 1 <*> Grounding Pad Applied By CLARK JAUREGUI RN 2 <*> Cautery Type Monopolar ESU 2 <*> Cut Setting 40 2 <*> ID Number [id number] [facility] IntraOp Communication Entry 1 Communication To Family/Significant other Comment START Communication By JEROMY SAINI RN Date and Time 10/06/20 12:28:00 Last Modified By: CLARK JAUREGUI RN 10/06/20 12:14:46 [facility] IntraOp Communication Audit 10/06/20 12:28:37 Ensemble Member: WASSONSY Modifier: WASSONSY <+> 1 Date and Time [facility] IntraOp Counts Verification Entry 1 Procedure Cervical Discectomy Fusion Anterior Count Info Count Type Sponge, Sharps Counts Verification Baseline/pre-procedure Sequence Count Results Correct, surgeon notified Counts Performed By Count Performed By NELSON NGUYEN SCRUB (Scrub) TECH Count Performed By CLARK JAUREGUI RN (RN) Last Modified By: CLARK JAUREGUI RN 10/06/20 12:46:58 [facility] IntraOp Counts Verification Audit 10/06/20 12:46:58 Ensemble Member: WASSONSY Modifier: WASSONSY 1 <*> Procedure Cervical Discectomy Fusion Anterior 1 <*> Count Performed By (RN) NELSON NGUYEN SCRUB TECH [facility] IntraOp Counts Final Entry 1 Procedure Cervical Discectomy Fusion Anterior Final Count Info Count Type Sponge, Sharps, Miscellaneous Counts Verification Skin Closure/end of Sequence procedure Count Results Correct, surgeon notified Counts Performed By Count Performed By GULLETTE, NELSON, SCRUB (Scrub) TECH Count Performed By CLARK JAUREGUI RN (RN) Last Modified By: CLARK JAUREGUI RN 10/06/20 13:07:53 [facility] IntraOp Departure from OR Entry 1 Integumentary Assessment Integumentary WDL Assessment WDL Transfer/Handoff Transfer to PACU Phase I Handoff Method Bedside/Face to face, Phone call Handoff Reported to Jon Ruth RN Post-op Transport Stretcher/Gurney Via Patient Transport HEBERT GAMBOA, Accompanied by BERNICE BRUCE CRNA Last Modified By: CLARK JAUREGUI RN 10/06/20 12:47:18 [facility] IntraOp Departure from OR Audit 10/06/20 12:47:18 Ensemble Member: HANG Modifier: WASSONSY <+> 1 Patient Transport Accompanied by <+> 1 Handoff Reported to [facility] IntraOp Dressing and Packing Entry 1 Type Dressing Location OP SITE Wound Dressing Item Steristrip, Other Applied By HEBERT GAMBOA Other Comments MASTISOL, STERISTRIPS, COVADERM Last Modified By: CLARK JAUREGUI RN 10/06/20 12:47:50 General Comments: COVERDERM [facility] IntraOp Dressing and Packing Audit 10/06/20 12:47:50 Ensemble Member: HANG Modifier: WASSONSY 1 <*> Location 1 <*> Wound Dressing Item 1 <*> Applied By HEBERT GAMBOA 1 <*> Other Comments [facility] IntraOp Fire Risk Assessment Entry 1 Fire Info Surgical Site or 1- Yes Incision Above the Xyphoid Open O2 Source 0- No (Mask or Cannula) Available Ignition 1- Yes (ESU, Laser, Light Source) Fire Risk 2 Assessment Score Fire Score Fire Risk Yes Assessment Complete Fire Risk CLARK JAUREGUI special forces engineer sergeant Verified By Fire Risk 10/06/20 11:56:00 Assessment Verified Date/Time Fire Risk Standard Fire Yes Safety Precautions Followed Last Modified By: CLARK JAUREGUI RN 10/06/20 12:15:32 [facility] IntraOp Fire Risk Assessment Audit 10/06/20 12:48:04 Ensemble Member: HANG Modifier: WASSONSY 1 <*> Fire Risk Assessment Verified By JEROMY SAINI RN 1 <*> Fire Risk Assessment Verified 10/06/20 12:15:00 Date/Time 10/06/20 12:28:03 Ensemble Member: WASSONSY Modifier: WASSONSY <+> 1 Fire Risk Assessment Complete [facility] IntraOp General Case Industrial Relations Director 1 Case Information OR OR 11 [facility] Case Level 1 Room Verified Yes Wound Class I - Clean Specialty SN Neurosurgery Anesthesia Type General ASA Class 3 Diagnosis Preop Diagnosis CERVICAL SPONDYLOSIS WITH MYELOPATHY Postop Same As Preop No Postop Diagnosis PLEASE SEE MD NOTES Last Modified By: CLARK JAUREGUI RN 10/06/20 12:16:32 [facility] IntraOp General Case Data Audit 10/06/20 12:16:32 Ensemble Member: HANG Modifier: WASSONSY 1 <*> OR OR 09 [facility] 1 <+> ASA Class 1 <+> Anesthesia Type 1 <+> Postop Same As Preop 1 <+> Postop Diagnosis 1 <+> Room Verified [facility] IntraOp Implant Log Entry 1 Entry 2 Entry 3 Type Tissue Implant Implant (Synthetic) Implant (Synthetic) (Biologic) Implant Log Implant Type Hardware Hardware Tissue Implant Type Bone Implant BONE VIVIGEN FORMABLE CAGE EIT CIF H 5MM 8D CAGE EIT CIF H 5MM 8D Identification [id number] Description Implant Quantity 1 1 1 Implant Site OP SITE OP SITE OP SITE Implant Identification Model Number Implant [id number] Identification Serial Number Implant [id number] Identification Lot Number Implant Lifenet:Lifenet J&J:Depuy:Depuy Spine J&J:Depuy:Depuy Spine Identification Transplant Srv Lead Manufacturing Engineering Tech Name: Implant [id number] Identification Catalog Number Implant Size Implant Has an Yes Yes Yes Expiration Date Implant Expiration 09/14/21 11/14/23 11/14/23 Date Wasted Radioactive Material Time Implanted Tissue Implant Continue for Tissue Implant Documentation Tissue Identification Number Graft Prep Per Lead Manufacturing Engineering Tech Instructions: Tissue Preparation Method: Reconstitution Solution: Reconstitution Solution Lot Number Reconstitution Solution Expiration Date: Thawing Solution Thawing Solution Lot Number Thawing Solution Expiration Date Preparation Materials, Other Preparation Materials, Other Lot Number Preparation Materials, Other Expiration Date Tissue Prepared/Processed By Lead Manufacturing Engineering Tech Paperwork Completed Implant Type Comment Last Modified By: CLARK JAUREGUI RN WASSON, SANDRA D RN CLARK JAUREGUI RN 10/06/20 12:52:08 10/06/20 12:57:34 10/06/20 12:58:46 Entry 4 Entry 5 Type Implant (Synthetic) Implant (Synthetic) Implant Log Implant Type Hardware Hardware Tissue Implant Type Implant PLT ANT SKYLN HYBRD SCR SKYLN VARI SD Identification [id number] Description Implant Quantity 1 6 Implant Site OP SITE OP SITE Implant Identification Model Number Implant Identification Serial Number Implant Identification Lot Number Implant J&J:Depuy:Depuy Spine J&J:Depuy:Depuy Spine Identification Lead Manufacturing Engineering Tech Name: Implant [id number] Identification Catalog Number Implant Size Implant Has an Expiration Date Implant Expiration Date Wasted Radioactive Material Time Implanted Tissue Implant Continue for Tissue Implant Documentation Tissue Identification Number Graft Prep Per Lead Manufacturing Engineering Tech Instructions: Tissue Preparation Method: Reconstitution Solution: Reconstitution Solution Lot Number Reconstitution Solution Expiration Date: Thawing Solution Thawing Solution Lot Number Thawing Solution Expiration Date Preparation Materials, Other Preparation Materials, Other Lot Number Preparation Materials, Other Expiration Date Tissue Prepared/Processed By Lead Manufacturing Engineering Tech Paperwork Completed Implant Type Comment Last Modified By: CLARK JAUREGUI, CLARK WATSON RN 10/06/20 13:13:00 10/06/20 13:13:00 [facility] IntraOp Implant Log Audit 10/06/20 13:13:00 Ensemble Member: WASSONSY Modifier: WASSONSY <+> 4 Implant Identification Description <+> 4 Implant Identification Lead Manufacturing Engineering Tech Name: <+> 4 Implant Site <+> 4 Implant Quantity <+> 4 Implant Identification Catalog Number <+> 4 Implant Type <+> 4 Type <+> 5 Implant Identification Description <+> 5 Implant Identification Lead Manufacturing Engineering Tech Name: <+> 5 Implant Site <+> 5 Implant Quantity <+> 5 Implant Identification Catalog Number <+> 5 Implant Type <+> 5 Type 10/06/20 12:58:46 Ensemble Member: WASSONSY Modifier: WASSONSY <+> 3 Implant Identification Description <+> 3 Implant Identification Lot Number <+> 3 Implant Identification Lead Manufacturing Engineering Tech Name: <+> 3 Implant Expiration Date <+> 3 Implant Site <+> 3 Implant Quantity <+> 3 Implant Identification Catalog Number <+> 3 Implant Type <+> 3 Implant Has an Expiration Date <+> 3 Type 10/06/20 12:57:34 Ensemble Member: WASSONSY Modifier: WASSONSY <+> 2 Implant Identification Description <+> 2 Implant Identification Lot Number <+> 2 Implant Identification Lead Manufacturing Engineering Tech Name: <+> 2 Implant Expiration Date <+> 2 Implant Site <+> 2 Implant Quantity <+> 2 Implant Identification Catalog Number <+> 2 Implant Type <+> 2 Implant Has an Expiration Date <+> 2 Type [facility] IntraOp Intraoperative Assessment Entry 1 Handoff [...] Modified By: CLARK JAUREGUI RN 10/06/20 12:48:18 [facility] IntraOp Intraoperative Assessment Audit 10/06/20 12:48:18 Ensemble Member: HANG Modifier: WASSONSY 1 <*> Skin Assessment Verified Yes 1 <*> Handoff Method Bedside/Face to face, Phone call [facility] Intra Intraoperative Equipment Entry 1 Type Equipment Equipment Equipment Kg Suction System ID Number [id number] Setting 180 MM HG Intraop Monitoring Electrocardiogram Five lead placement (ECG) Electrode Placement Blood Pressure Non-Invasive BP Device Source Blood Pressure Arm, left lower Location Pulse Oximeter Hand, right Probe Site Antiembolic Devices Antiembolic Devices Sequential compression device, knee high Antiembolic Device Bilateral Location Antiembolic Device [id number] ID Number Scopes Photo/Video Documentation Photo No Video No Last Modified By: CLARK JAUREGUI RN 10/06/20 12:49:15 [facility] IntraOp Intraoperative Equipment Audit 10/06/20 12:49:15 Ensemble Member: HANG Modifier: WASSONSY <+> 1 Photo <+> 1 Video <+> 1 ID Number <+> 1 Setting <+> 1 Electrocardiogram (ECG) Electrode Placement <+> 1 Blood Pressure Location <+> 1 Pulse Oximeter Probe Site <+> 1 Blood Pressure Source <+> 1 Antiembolic Device ID Number [facility] IntraOp Medication Admin Entry 1 Entry 2 Entry 3 Medication/Irrigant Bacitracin 50,00units lidocaine 1% w/ thrombin 5000units powder vial epinephrine 1:100,000 topical powder - 30ml vial - [id number] Combo Med List Time Administered Route of IRRIGATION LOCAL TOPICAL Administration Dose Dose 98671 10 5000 Unit of Measure units ml units Volume Administered By MARION COBOS, MARION COBOS MD-SNU MD-SNU Procedure Irrigation Irrigant Volume In Irrigant Volume Out Last Modified By: CLARK JAUREGUI, CLARK WATSON RN WASSON, SANDRA D, RN 10/06/20 12:31:00 10/06/20 12:31:00 10/06/20 12:31:00 Entry 4 Medication/Irrigant SPNG SURGFOAM [id number] Combo Med List Time Administered Route of TOPICAL Administration Dose Dose Unit of Measure Volume Administered By MARION COBOS MD-SNU Procedure Irrigation Irrigant Volume In Irrigant Volume Out Last Modified By: CLARK JAUREGUI RN 10/06/20 12:31:00 [facility] IntraOp Patient Positioning Entry 1 Procedure [...] Modified By: CLARK JAUREGUI RN 10/06/20 12:26:54 [facility] IntraOp Patient Positioning Audit 10/06/20 12:50:11 Ensemble Member: WASSONSY Modifier: WASSONSY 1 <*> Procedure Cervical Discectomy Fusion Anterior 1 <*> Positioning Devices Arm Board, Pad, Arm, Pillows [facility] IntraOp Sign In Entry 1 Patient, [...] Modified By: CLARK JAUREGUI RN 10/06/20 12:50:24 [facility] IntraOp Sign In Audit 10/06/20 12:50:24 Ensemble Member: WASTONYSY Modifier: WASSONSY 1 <*> Allergies No 1 <*> Blood Identifiers Verified Per Not applicable Policy [facility] IntraOp Sign Out Entry 1 RN [...] Modified By: CLARK JAUREGUI RN 10/06/20 12:29:20 [facility] IntraOp Sign Out Audit 10/06/20 13:22:22 Ensemble Member: WASTONYSY Modifier: WASSONSY <+> 1 RN Sign Out Signature Date/Time 10/06/20 12:51:21 Ensemble Member: WASSONSY Modifier: WASSONSY 1 <*> Specimen Labeled Correctly Yes 1 <+> RN Sign Out Signature [facility] IntraOp Skin Prep Entry 1 Procedure Cervical Discectomy Fusion Anterior Prescribed Yes Pre-Surgical Prep Completed Prep Area NECK AFTER ALCOHOL AND HIBICLENS PREP PER DR COBOS Intraop Prep Integumentary WDL Assessment WDL Prep Agents Alcohol, Chlorhexadine gluconate, DuraPrep Prep by JEROMY SAINI, RN Hair Removal Methods No hair removal performed Last Modified By: CLARK JAUREGUI RN 10/06/20 12:17:22 [facility] IntraOp Skin Prep Audit 10/06/20 12:51:04 Ensemble Member: WASTONYSY Modifier: WASSONSY 1 <*> Prep Area NECK 1 <*> Procedure Cervical Discectomy Fusion Anterior 1 <*> Prep by MARION COBOS MD-[facility] IntraOp Surgical Procedures Entry 1 Procedure Cervical Discectomy Fusion Anterior Additional (C4-6 ACDF) Procedure Description Primary Procedure Yes Primary Surgeon MARION COBOS MD-SNU Start 10/06/20 12:27:00 Stop 10/06/20 13:12:00 Anesthesia Type General Specialty SN Neurosurgery Wound Class I - Clean Last Modified By: CLARK JAUREGUI RN 10/06/20 12:19:31 [facility] IntraOp Surgical Procedures Audit 10/06/20 13:13:12 Ensemble Member: WASSONSY Modifier: WASSONSY <+> 1 Stop 10/06/20 12:29:03 Ensemble Member: WASSONSY Modifier: WASSONSY <+> 1 Start [facility] IntraOp Temp Regulation Devices Entry 1 Temp Regulation Temperature Forced Air Warming Regulation Device device Temperature 28433 Regulation Device Serial/Unit Number Temperature Lower body Regulation Site Temperature Device 43 C Setting Temperature BERNICE BRUCE CRNA Regulation Device Applied by Last Modified By: CLARK JAUREGUI RN 10/06/20 12:43:51 [facility] IntraOP Time Out Entry 1 Procedure [...] Modified By: CLARK JAUREGUI RN 10/06/20 12:28:49 [facility] IntraOP Time Out Audit 10/06/20 12:28:49 Ensemble Member: WASTONYSY Modifier: WASSONSY 1 <+> Time Out Pause Time 1 <*> Procedure to be Performed Cervical Discectomy Fusion Anterior 10/06/20 12:27:48 Ensemble Member: HANG Modifier: HANG 1 <*> Beta Michelle [...] Performed in location of procedure after prepped/draped [facility] IntraOp X-Ray and Images Entry 1 X-Ray/Imaging Type Fluoroscopy Fluoroscopy Type C-Arm Site OP SITE Scallop Cutter Name Robyn Kumar, Diagnostic Tapper Balance Wheel Screw Hole Last Modified By: CLARK JAUREGUI RN 10/06/20 12:44:50 Case Comments <None> Finalized By: BO ALEX Document Signatures Signed By: CLARK JAUREGUI RN 10/06/20 14:49 CLARK JAUREGUI RN 10/06/20 13:22 BO ALEX 10/07/20 13:51 Unfinalized History Date/Time Username Reason for Unfinalizing Freetext Reason for Unfinalizing 10/06/20 14:49 HANG Correct Documentation 10/07/20 13:48 TOMAS Correct Billing Electronically signed by Ashwin [facility] Conversion Scale Clerk Cerner at 01/07/2023 7:36 PM CDT documented in this encounter Plan of Treatment Not on file documented as of this encounter Visit Diagnoses Not on filedocumented in this encounter
--- OUTSIDE RECORDS SUMMARY | 2025-03-23 08:47 | XMS_ITS | Encounter Summary ---
Author Organization [employer] ([place], [place], [place], [place]) Address [address] [place] [address] Care Team Providers Care Crane Hoist Or Lift Operator Name Role Phone Unavailable Primary Care Provider Unavailabl e Encounter Details Date Type Department Care Team (Late st Contact Info) Description 10/06/2020 Transcribed Document [facility] [place] [place] Family Medicine [address] [place] [address] ProviderPat MD [address] [place] [address] Social History Tobacco Use Types [...] - Pat ProviderMD - 10/06/2020 12:27 PM MOBILITY SPECIALIST [facility] Main OR Preop Summary Primary Physician: MARION COBOS MD-SNU Finalized Date/Time: 10/06/20 15:23:47 Pt. Name: BUSHRA LUNDBERG D.O.B./Sex: 1965 Female Med Rec #: [id number] Physician: MARION COBOS MD-SNU Financial #: [id number] Pt. Type: O Room/Bed: Admit/Disch: 10/06/20 08:45:00 - Institution: [facility] PreOp Case Times Entry 1 In Preop 10/06/20 09:48:00 Ready for Holding n/a Room Patient Ready for 10/06/20 10:45:00 Surgery Patient Out of Preop 10/06/20 11:55:00 Patient Out of n/a Holding Room Last Modified By: Radha Hawley RN 10/06/20 12:19:10 [facility] PreOp Case Times Audit 10/06/20 12:19:10 Real Estate Executive Assistant: BRITTON Modifier: RAMEZALR <+> 1 Patient Out of Preop Finalized By: Radha Hawley, RN Document Signatures Signed By: Radha Hawley RN 10/06/20 15:23 Electronically signed by [facility] Conversion Ceramics Instructor Cerner at 01/07/2023 7:30 PM CDT documented in this encounter Plan of Treatment Not on file documented as of this encounter Visit Diagnoses Not on filedocumented in this encounter
--- OUTSIDE RECORDS SUMMARY | 2025-03-23 08:47 | XMS_ITS | Data Portability ---
Author Organization [place] - [place] & [place] [facility] ADMIN Address [address] [place] [id number] Care Team Providers Care Carrot Buncher Name Role Phone MARION LYLES Primary Care Provider [phone] Assessment Encounter Date Assessment Date Assessment LastModified by Organization Details LastModified Time 11/17/2024 11/17/2024 A total of 10 minutes was spent with the pt today. Recommendations: 1. Start tracking calories and protein with [employer] jessiac 2. Aim for 1200 kcal per day and 65+ grams of protein 3. Try making own smoothies/shakes with a front end manager, almond milk, fruit, and protein powder from the tub 4. Add in high protein snacks like cottage cheese dip, yogurt, turkey roll ups, cheese, nuts/seeds, etc. 5. Add in chair exercises 3 days/week 6. Schedule an appt with nurse psychologist at [facility]. F/U With RD As needed Pt doing well overall. Addressed concerns today. Pt was reassured at today's visit. Pt verbally agreed to recommendations and goals. Denied further questions/concerns . RDN will monitor weight loss, labs, meds, and lifestyle modifications. Will f/up as scheduled or PRN. [email or web address] Not available 11/17/2024 16:14:49 Plan of Treatment Reminders Order Date Submit Date Provider Last Modified By Organization Details Last Modified Time Details Appointments OV EST 20 2024 09:20A M Hilario Woods, DNP, SITE LEASING AGENT, STACKER STRAIGHTENER-C Not available Not available Not available Lab copper , serum or plasma 2024 025 NATHAN [facility], [address], [address], [place], [address], 02/23/2025 03:36:44 seleni um, quanti tative , blood 2024 025 [facility], [address], [address], [place], [address], 02/23/2025 03:36:46 zinc, serum or plasma 2024 025 NATHAN [facility], [address], [address], [place], [address], 02/23/2025 03:36:44 folate , serum 2024 025 NATHAN [facility], [address], [address], [place], [address], 02/23/2025 03:36:41 vitami n E, serum 2024 025 [facility], [address], [address], [place], [address], 02/23/2025 03:36:40 vitami n A (retin ol), serum 2024 025 N[facility]AN [facility], [address], [address], [place], [address], 02/23/2025 03:36:41 prealb umin, serum 2024 025 NATHAN [facility], [address], [address], [place], [address], 02/23/2025 03:36:45 thiami ne, QN, blood 2024 025 NATHAN [facility], [address], [address], [place], [address], 02/23/2025 03:36:43 methyl malona te, QN, serum or plasma 2024 025 NATHAN [facility], [address], [address], [place], [address], 02/23/2025 03:36:43 vitami n D, 25-hyd raul, total, serum 2024 025 NATHAN [facility], [address], [address], [place], [address], 02/23/2025 03:36:42 CBC w/ auto diff 2024 025 NATHAN [facility], [address], [address], [place], [address], 02/23/2025 03:36:38 CMP, serum or plasma 2024 025 NATHAN [facility], [address], [address], [place], [address], 02/23/2025 03:36:38 TSH + free T4, serum 2024 025 NATHAN [facility], [address], [address], [place], [address], 02/23/2025 03:36:37 HbA1c (hemog lobin A1c), blood 2024 025 NATHAN [facility], [address], [address], [place], [address], 02/23/2025 03:36:40 lipid panel, serum 2024 025 NATHAN [facility], [address], [address], [place], [address], 02/23/2025 03:36:39 iron + TIBC + ferrit in, serum 2024 025 NATHAN [facility], [address], [address], [place], [address], 02/23/2025 03:36:36 copper , serum or plasma 2024 025 [email or web address] s [facility], [address], [address], [place], [address], 11/24/2024 12:50:10 seleni um, quanti tative , blood 2024 025 [email or web address] s [facility], [address], [address], [place], [address], 11/24/2024 12:50:11 zinc, serum or plasma 2024 025 [email or web address] s [facility], [address], [address], [place], [address], 11/24/2024 12:50:11 vitami n E, serum 2024 025 ahaugrudgrave s [facility], [address], [address], [place], [address], 11/24/2024 12:50:11 vitami n A (retin ol), serum 2024 025 ahaugrudgrave s [facility], [address], [address], [place], [address], 11/24/2024 12:50:11 prealb umin, serum 2024 025 ahaugrudgrave s [facility], [address], [address], [place], [address], 11/24/2024 12:50:11 thiami ne, QN, blood 2024 025 [email or web address] s [facility], [address], [address], [place], [address], 11/24/2024 12:50:11 methyl malona te, QN, serum or plasma 2024 025 [facility], [address], [address], [place], [address], 11/24/2024 12:50:11 vitami n D, 25-hyd raul, total, serum 2024 025 ahaugrudgrave s [facility], [address], [address], [place], [address], 11/24/2024 12:50:11 CBC w/ auto diff 2024 025 [email or web address] s [facility], [address], [address], [place], [address], 11/24/2024 12:50:11 CMP, serum or plasma 2024 025 ahaugrudgrave s [facility], [address], [address], [place], [address], 11/24/2024 12:50:11 lipid panel, serum 2024 025 ahaugrudgrave s [facility], [address], [address], [place], [address], 11/24/2024 12:50:12 HbA1c (hemog lobin A1c), blood 2024 025 ahaugrudgrave s [facility], [address], [address], [place], [address], 11/24/2024 12:50:11 TSH + free T4, serum 2024 025 [email or web address] s [facility], [address], [address], [place], [address], 11/24/2024 12:50:12 iron + TIBC + ferrit in, serum 2024 025 [facility], [address], [address], [place], [address], 11/24/2024 12:50:11 folate , serum 2024 025 [facility], [address], [address], [place], [address], 11/24/2024 12:50:11 copper , serum or plasma 2023 024 NATHAN [facility], [address], [address], [place], [address], 08/25/2024 14:37:42 seleni um, quanti tative , blood 2023 024 NATHAN [facility], [address], [address], [place], [address], 08/25/2024 14:37:45 zinc, serum or plasma 2023 024 NATHAN [facility], [address], [address], [place], [address], 08/25/2024 14:37:43 vitami n E, serum 2023 024 NATHAN [facility], [address], [address], [place], [address], 08/25/2024 14:37:36 vitami n A (retin ol), serum 2023 024 NATHAN [facility], [address], [address], [place], [address], 08/25/2024 14:37:39 prealb umin, serum 2023 024 NATHAN [facility], [address], [address], [place], [address], 08/25/2024 14:37:44 thiami ne, QN, blood 2023 024 NATHAN [facility], [address], [address], [place], [address], 08/25/2024 14:37:40 methyl malona te, QN, serum or plasma 2023 024 NATHAN [facility], [address], [address], [place], [address], 08/25/2024 14:37:41 vitami n D, 25-hyd raul, total, serum 2023 024 NATHAN [facility], [address], [address], [place], [address], 08/25/2024 14:37:39 lipid panel, serum 2023 024 NATHAN [facility], [address], [address], [place], [address], 08/25/2024 14:37:35 CBC w/ auto diff 2023 024 NATHAN [facility], [address], [address], [place], [address], 08/25/2024 14:37:33 CMP, serum or plasma 2023 024 NATHAN [facility], [address], [address], [place], [address], 08/25/2024 14:37:34 HbA1c (hemog lobin A1c), blood 2023 024 NATHAN [facility], [address], [address], [place], [address], 08/25/2024 14:37:37 TSH + free T4, serum 2023 024 NATHAN [facility], [address], [address], [place], [address], 08/25/2024 14:37:32 iron + TIBC + ferrit in, serum 2023 024 NATHAN [facility], [address], [address], [place], [address], 08/25/2024 14:37:31 folate , serum 2023 024 NATHAN [facility], [address], [address], [place], [address], 08/25/2024 14:37:38 Referral None record ed. Procedures None record ed. Surgeries esopha gogast roduod enosco py (SURG) 2023 024 [email or web address] Terese Higuera MD, [address], [address], [place], [address], 05/26/2024 10:46:31 Imaging RF, upper gastro intest inal tract + small bowel, w/ contra st PO 2023 024 [email or web address] [facility] (Centralized Scheduling), [address], [place], [address], 06/04/2024 16:14:18 Medication Orders Carafa te 1 gram tablet 2023 025 [facility], [address], [id number], 02/16/2025 09:23:23 Proton ix 40 mg tablet ,delay ed releas e 2023 024 [facility], [address] [facility] [address] [place], [place], [id number], 08/18/2024 12:11:12 omepra zole 20 mg capsul etita releas e 2023 024 [email or web address] [facility], [address] [place] [address] [place], [id number], 12/18/2024 11:02:39 promet hazine 12.5 mg rectal suppos itory 2023 025 NATHAN [facility], [address] [place] [address] [place], [id number], 11/17/2024 09:17:43 Patient TargetsNo targets recorded. Patient InstructionsNo instructions recorded. Reason for Referral None Reported. Results Created Date Observation Date Name Description Value Unit Range Abnormal Flag Note LastModifiedBy Organization Detail LastModifiedTime 03/31/2004/01/2024 FE+TI BC+FE R iron bind.cap.(TI BC) 255 ug/dL 250-45 0 normal Not Available [facility] ([facility]) [address] [place], [address], 04/07/2024 12:36:52 03/31/20 24 04/01/2024 FE+TI BC+FE R UIBC 196 ug/dL 131-42 5 normal Not Available [facility] ([facility]) [address] [place], [address], 04/07/2024 12:36:52 03/31/2004/01/2024 FE+TI BC+FE R iron 59 ug/dL 27-159 normal Not Available [facility] ([facility]) [address] [place], [address], 04/07/2024 12:36:52 03/31/2004/01/2024 FE+TI BC+FE R iron saturation 23 % 15-55 normal Not Available [facility]) [address] [place], [address], 04/07/2024 12:36:52 03/31/20 24 04/01/2024 FE+TI BC+FE R ferritin 360 NG/mL 15-150 above high normal Not Available [facility] ([facility]) [address] [place], [address], 04/07/2024 12:36:52 03/31/20 24 04/01/2024 TSH+F REE T4 TSH 2.540 uIU/m L 0.450- 4.500 normal Not Available [facility] ([facility]) [address] [place], [address], 04/07/2024 12:36:52 03/31/20 24 04/01/2024 TSH+F REE T4 T4,free(dire ct) 1.65 NG/dL 0.82-1 .77 normal Not Available [facility] ([facility]) [address] [place], [address], 04/07/2024 12:36:52 03/31/20 24 04/01/2024 CBC WITH DIFFE RENTI AL/PL ATELE T WBC 7.3 x10e3 /uL 3.4-10 .8 normal Not Available [facility] ([facility]) [address] [place], [address], 04/07/2024 12:36:53 03/31/20 24 04/01/2024 CBC WITH DIFFE RENTI AL/PL ATELE T RBC 4.61 x10e6 /uL 3.77-5 .28 normal Not Available [facility] ([facility]) [address] [place], [address], 04/07/2024 12:36:53 03/31/20 24 04/01/2024 CBC WITH DIFFE RENTI AL/PL ATELE T hemoglobin 13.7 g/dL 11.1-1 5.9 normal Not Available [facility] ([facility]) [address] [place], [address], 04/07/2024 12:36:53 03/31/20 24 04/01/2024 CBC WITH DIFFE RENTI AL/PL ATELE T hematocrit 41.8 % 34.0-4 6.6 normal Not Available [facility] ([facility]) [address] [facility], [place], [address], 04/07/2024 12:36:53 03/31/20 24 04/01/2024 CBC WITH DIFFE RENTI AL/PL ATELE T MCV 91 fL 79-97 normal Not Available [facility] ([facility]) [address] [facility], [place], [address], 04/07/2024 12:36:53 03/31/20 24 04/01/2024 CBC WITH DIFFE RENTI AL/PL ATELE T MCH 29.7 pg 26.6-3 3.0 normal Not Available [facility] ([facility]) [address] [facility], [place], [address], 04/07/2024 12:36:53 03/31/20 24 04/01/2024 CBC WITH DIFFE RENTI AL/PL ATELE T MCHC 32.8 g/dL 31.5-3 5.7 normal Not Available [facility] ([facility]) [address] [place], [address], 04/07/2024 12:36:53 03/31/20 24 04/01/2024 CBC WITH DIFFE RENTI AL/PL ATELE T RDW 12.6 % 11.7-1 5.4 Not Available [facility] ([facility]) [address] [place], [address], 04/07/2024 12:36:53 03/31/20 24 04/01/2024 CBC WITH DIFFE RENTI AL/PL ATELE T platelets 372 x10e3 /uL 150-45 0 normal Not Available [facility] ([facility]) [address] [place], [address], 04/07/2024 12:36:53 03/31/20 24 04/01/2024 CBC WITH DIFFE RENTI AL/PL ATELE T neutrophils 64 % not estab. normal Not Available [facility] ([facility]) [address] [facility], [place], [address], 04/07/2024 12:36:53 03/31/20 24 04/01/2024 CBC WITH DIFFE RENTI AL/PL ATELE T lymphs 24 % not estab. normal Not Available [facility] ([facility]) [address] [facility], [place], [address], 04/07/2024 12:36:53 03/31/20 24 04/01/2024 CBC WITH DIFFE RENTI AL/PL ATELE T monocytes 7 % not estab. normal Not Available [facility] ([facility]) [address] [facility], [place], [address], 04/07/2024 12:36:53 03/31/20 24 04/01/2024 CBC WITH DIFFE RENTI AL/PL ATELE T eos 4 % not estab. normal Not Available [facility] ([facility]) [address] [facility], [place], [address], 04/07/2024 12:36:53 03/31/20 24 04/01/2024 CBC WITH DIFFE RENTI AL/PL ATELE T basos 1 % not estab. normal Not Available [facility] ([facility]) [address] [facility], [place], [address], 04/07/2024 12:36:53 03/31/20 24 04/01/2024 CBC WITH DIFFE RENTI AL/PL ATELE T immature cells STACKER STRAIGHTENER Not Available [facility] ([facility]) [address] [facility], [place], [address], 04/07/2024 12:36:53 03/31/20 24 04/01/2024 CBC WITH DIFFE RENTI AL/PL ATELE T neutrophils (absolute) 4.6 x10e3 /uL 1.4-7. 0 normal Not Available [facility] ([facility]) [address] [place], [address], 04/07/2024 12:36:53 03/31/20 24 04/01/2024 CBC WITH DIFFE RENTI AL/PL ATELE T lymphs (absolute) 1.8 x10e3 /uL 0.7-3. 1 normal Not Available [facility] ([facility]) [address] [facility], [place], [address], 04/07/2024 12:36:53 03/31/20 24 04/01/2024 CBC WITH DIFFE RENTI AL/PL ATELE T monocytes(ab solute) 0.5 x10e3 /uL 0.1-0. 9 normal Not Available [facility] ([facility]) [address] [place], [address], 04/07/2024 12:36:53 03/31/20 24 04/01/2024 CBC WITH DIFFE RENTI AL/PL ATELE T eos (absolute) 0.3 x10e3 /uL 0.0-0. 4 normal Not Available [facility] ([facility]) [address] [facility], [place], [address], 04/07/2024 12:36:53 03/31/20 24 04/01/2024 CBC WITH DIFFE RENTI AL/PL ATELE T baso (absolute) 0.1 x10e3 /uL 0.0-0. 2 normal Not Available [facility] ([facility]) [address] [place], [address], 04/07/2024 12:36:53 03/31/20 24 04/01/2024 CBC WITH DIFFE RENTI AL/PL ATELE T immature granulocytes 0 % not estab. Not Available [facility] ([facility]) [address] [place], [address], 04/07/2024 12:36:53 03/31/20 24 04/01/2024 CBC WITH DIFFE RENTI AL/PL ATELE T immature grans (abs) 0.0 x10e3 /uL 0.0-0. 1 Not Available [facility] ([facility]) [address] [facility], [place], [address], 04/07/2024 12:36:53 03/31/20 24 04/01/2024 CBC WITH DIFFE RENTI AL/PL ATELE T NRBC STACKER STRAIGHTENER Not Available [facility] ([facility]) [address] [facility], [place], [address], 04/07/2024 12:36:53 03/31/20 24 04/01/2024 CBC WITH DIFFE RENTI AL/PL ATELE T hematology comments: STACKER STRAIGHTENER Not Available [facility] ([facility]) [address] [facility], [place], [address], 04/07/2024 12:36:53 03/31/20 24 04/01/2024 COMP. METAB OLIC PANEL (14) glucose 86 mg/dL 70-99 normal Not Available [facility] ([facility]) [address] [facility], [place], [address], 04/07/2024 12:36:53 03/31/20 24 04/01/2024 COMP. METAB OLIC PANEL (14) BUN 6 mg/dL 6-24 normal Not Available [facility] ([facility]) [address] [facility], [place], [address], 04/07/2024 12:36:53 03/31/20 24 04/01/2024 COMP. METAB OLIC PANEL (14) creatinine 0.73 mg/dL 0.57-1 .00 normal Not Available [facility] ([facility]) [address] [facility], [place], [address], 04/07/2024 12:36:53 03/31/20 24 04/01/2024 COMP. METAB OLIC PANEL (14) eGFR 95 mL/mi n/1.7 3 >59 normal Not Available [facility] ([facility]) [address] [place], [address], 04/07/2024 12:36:53 03/31/20 24 04/01/2024 COMP. METAB OLIC PANEL (14) BUN/creatini ne ratio 8 9-23 below low normal Not Available [facility] ([facility]) [address] [facility] [place], [address], 04/07/2024 12:36:53 03/31/20 24 04/01/2024 COMP. METAB OLIC PANEL (14) sodium 132 mmol/ L 134-14 4 below low normal Not Available [facility] ([facility]) [address] [facility], [place], [address], 04/07/2024 12:36:53 03/31/20 24 04/01/2024 COMP. METAB OLIC PANEL (14) potassium 4.6 mmol/ L 3.5-5. 2 normal Not Available [facility] ([facility]) [address] [facility] [place], [address], 04/07/2024 12:36:53 03/31/20 24 04/01/2024 COMP. METAB OLIC PANEL (14) chloride 93 mmol/ L 96-106 below low normal Not Available [facility] ([facility]) [address] [facility] [place], [address], 04/07/2024 12:36:53 03/31/20 24 04/01/2024 COMP. METAB OLIC PANEL (14) carbon dioxide, total 27 mmol/ L 20-29 normal Not Available [facility] ([facility]) [address] [facility] [place], [address], 04/07/2024 12:36:53 03/31/20 24 04/01/2024 COMP. METAB OLIC PANEL (14) calcium 9.1 mg/dL 8.7-10 .2 normal Not Available [facility] ([facility]) [address] [place], [address], 04/07/2024 12:36:53 03/31/20 24 04/01/2024 COMP. METAB OLIC PANEL (14) protein, total 6.1 g/dL 6.0-8. 5 normal Not Available [facility] ([facility]) [address] [place], [address], 04/07/2024 12:36:53 03/31/20 24 04/01/2024 COMP. METAB OLIC PANEL (14) albumin 4.0 g/dL 3.8-4. 9 normal Not Available [facility] ([facility]) [address] [place], [address], 04/07/2024 12:36:53 03/31/20 24 04/01/2024 COMP. METAB OLIC PANEL (14) globulin, total 2.1 g/dL 1.5-4. 5 Not Available [facility] ([facility]) [address] [place], [address], 04/07/2024 12:36:53 03/31/20 24 04/01/2024 COMP. METAB OLIC PANEL (14) bilirubin, total 0.4 mg/dL 0.0-1. 2 normal Not Available [facility] ([facility]) [address] [place], [address], 04/07/2024 12:36:53 03/31/20 24 04/01/2024 COMP. METAB OLIC PANEL (14) alkaline phosphatase 137 IU/L 44-121 above high normal Not Available [facility] ([facility]) [address] [place], [address], 04/07/2024 12:36:53 03/31/20 24 04/01/2024 COMP. METAB OLIC PANEL (14) AST (SGOT) 15 IU/L 0-40 normal Not Available [facility] ([facility]) [address] [facility], [place], [address], 04/07/2024 12:36:53 03/31/20 24 04/01/2024 COMP. METAB OLIC PANEL (14) ALT (SGPT) 16 IU/L 0-32 normal Not Available [facility] ([facility]) [address] [facility], [place], [address], 04/07/2024 12:36:53 03/31/20 24 04/01/2024 LIPID PANEL cholesterol, total 190 mg/dL 100-19 9 normal Not Available [facility] ([facility]) [address] [place], [address], 04/07/2024 12:36:54 03/31/20 24 04/01/2024 LIPID PANEL triglyceride s 78 mg/dL 0-149 normal Not Available [facility] ([facility]) [address] [place], [address], 04/07/2024 12:36:54 03/31/20 24 04/01/2024 LIPID PANEL HDL cholesterol 78 mg/dL >39 normal Not Available [facility] ([facility]) [address] [facility], [place], [address], 04/07/2024 12:36:54 03/31/20 24 04/01/2024 LIPID PANEL VLDL cholesterol sharon 14 mg/dL 5-40 Not Available [facility] ([facility]) [address] [place], [address], 04/07/2024 12:36:54 03/31/20 24 04/01/2024 LIPID PANEL LDL chol calc ([facility]) 98 mg/dL 0-99 Not Available [facility] ([facility]) [address] [place], [address], 04/07/2024 12:36:54 03/31/20 24 04/01/2024 LIPID PANEL LDL calc comment: STACKER STRAIGHTENER Not Available [facility] ([facility]) [address] [facility], [place], [address], 04/07/2024 12:36:54 03/31/20 24 04/03/2024 VITAM IN E vitamin E(alpha tocopherol) 10.8 mg/L 7.0-25 .1 Not Available [facility] ([facility]) [address] [facility], [place], [address], 04/07/2024 12:36:54 03/31/20 24 04/03/2024 VITAM IN [...] E defic ient. Not Available [facility] ([facility]) [address] [facility], [place], [address], 04/07/2024 12:36:54 03/31/20 24 04/01/2024 HEMOG LOBIN A1C hemoglobin A1C 5.3 % 4.8-5. 6 normal Predi abete s: 5.7 - 6.4 Diabe zoila: >6.4 Glyce carol contr ol for adult s with diabe zoila: <7.0 Not Available [facility] ([facility]) [address] [facility], [place], [address], 04/07/2024 12:36:55 03/31/20 24 04/01/2024 FOLAT E (FOLI C ACID) , SERUM folate (folic acid), serum 13.3 NG/mL >3.0 normal A serum folat e mikaela ntrat ion of less than 3.1 ng/mL is consi dered to repre sent clini sharon defic iency . Not Available [facility] ([facility]) [address] [facility], [place], [address], 04/07/2024 12:36:55 03/31/20 24 04/03/2024 VITAM IN [...] Admin istra tion. Not Available [facility] ([facility]) [address] [facility], [place], [address], 04/07/2024 12:36:56 03/31/20 24 04/01/2024 VITAM IN [...] Endoc rine Socie ty went on to [facility] er defin e vitam in D insuf ficie ncy as a level betwe en 21 and 29 ng/mL (2). 1. IOM (Inst itute of Medic ine). 2009. Dieta ry refer ence intak es for calci um and D. Karis bunch [place]: The Natio nal [facility] Press . 2. Dipak mejia [place], Henry waller [place], Che off-F thierno i FARRELL, et al. Evalu ation , treat ment, and preve ntion of vitam in D defic iency : an Endoc rine Socie ty clini sharon pract ice guide line. JCEM. 2010; 96(7) :1911 -30. Not Available [facility] ([facility]) [address] [facility], [place], [address], 04/07/2024 12:36:56 03/31/20 24 04/02/2024 VITAM IN B1 (THIA MINE) , BLOOD vit. B1, whole blood 128.8 nmol/ L 66.5-2 00.0 Not Available [facility] ([facility]) [address] [facility], [place], [address], 04/07/2024 12:36:57 03/31/20 24 04/07/2024 METHY LMALO INDIGO ACID, SERUM methylmaloni c acid, serum 153 nmol/ L 0-378 Not Available [facility] ([facility]) [address] [facility], [place], [address], 04/07/2024 12:36:57 03/31/20 24 04/02/2024 COPPE R, SERUM OR PLASM A copper, serum or plasma 117 ug/dL 80-158 Detec tion Limit = 5 Not Available [facility] ([facility]) [address] [facility], [place], [address], 04/07/2024 12:36:58 03/31/20 24 04/02/2024 ZINC, PLASM A OR SERUM zinc, plasma or serum 46 ug/dL 44-115 normal Detec tion Limit = 5 Not Available [facility] ([facility]) [address] [place], [address], 04/07/2024 12:36:58 03/31/20 24 04/01/2024 PREAL BUMIN prealbumin 18 mg/dL 10-36 Not Available [facility] ([facility]) [address] [place], [address], 04/07/2024 12:36:59 03/31/20 24 04/04/2024 SELEN IUM, BLOOD selenium, blood 166 ug/L 100-34 0 Detec tion Limit = 10 Not Available [facility] [facility]) [address] [place], [address], 04/07/2024 12:36:59 08/18/20 24 08/19/2024 FE+TI BC+FE R iron bind.cap.(TI BC) 307 ug/dL 250-45 0 normal Not Available [facility] ([facility]) [address] [place], [address], 08/25/2024 14:37:31 08/18/20 24 08/19/2024 FE+TI BC+FE R UIBC 208 ug/dL 131-42 5 normal Not Available [facility] ([facility]) [address] [place], [address], 08/25/2024 14:37:31 08/18/20 24 08/19/2024 FE+TI BC+FE R iron 99 ug/dL 27-159 normal Not Available [facility] ([facility]) [address] [place], [address], 08/25/2024 14:37:31 08/18/20 24 08/19/2024 FE+TI BC+FE R iron saturation 32 % 15-55 normal Not Available [facility] ([facility]) [address] [place], [address], 08/25/2024 14:37:31 08/18/20 24 08/19/2024 FE+TI BC+FE R ferritin 421 NG/mL 15-150 above high normal Not Available [facility] ([facility]) [address] [place], [address], 08/25/2024 14:37:31 08/18/20 24 08/19/2024 TSH+F REE T4 TSH 1.170 uIU/m L 0.450- 4.500 normal Not Available [facility] ([facility]) [address] [place], [address], 08/25/2024 14:37:32 08/18/20 24 08/19/2024 TSH+F REE T4 T4,free(dire ct) 1.65 NG/dL 0.82-1 .77 normal Not Available [facility] ([facility]) [address] [place], [address], 08/25/2024 14:37:32 08/18/20 24 08/19/2024 CBC WITH DIFFE RENTI AL/PL ATELE T WBC 6.4 x10e3 /uL 3.4-10 .8 normal Not Available [facility] ([facility]) [address] [place], [address], 08/25/2024 14:37:32 08/18/20 24 08/19/2024 CBC WITH DIFFE RENTI AL/PL ATELE T RBC 4.49 x10e6 /uL 3.77-5 .28 normal Not Available [facility] ([facility]) [address] [place], [address], 08/25/2024 14:37:32 08/18/20 24 08/19/2024 CBC WITH DIFFE RENTI AL/PL ATELE T hemoglobin 13.4 g/dL 11.1-1 5.9 normal Not Available [facility] ([facility]) [address] [place], [address], 08/25/2024 14:37:32 08/18/20 24 08/19/2024 CBC WITH DIFFE RENTI AL/PL ATELE T hematocrit 40.9 % 34.0-4 6.6 normal Not Available [facility] ([facility]) [address] [place], [address], 08/25/2024 14:37:32 08/18/20 24 08/19/2024 CBC WITH DIFFE RENTI AL/PL ATELE T MCV 91 fL 79-97 normal Not Available [facility] ([facility]) [address] [place], [address], 08/25/2024 14:37:32 08/18/20 24 08/19/2024 CBC WITH DIFFE RENTI AL/PL ATELE T MCH 29.8 pg 26.6-3 3.0 normal Not Available [facility] ([facility]) [address] [facility], [place], [address], 08/25/2024 14:37:32 08/18/20 24 08/19/2024 CBC WITH DIFFE RENTI AL/PL ATELE T MCHC 32.8 g/dL 31.5-3 5.7 normal Not Available [facility] ([facility]) [address] [facility], [place], [address], 08/25/2024 14:37:32 08/18/20 24 08/19/2024 CBC WITH DIFFE RENTI AL/PL ATELE T RDW 12.5 % 11.7-1 5.4 Not Available [facility] ([facility]) [address] [facility], [place], [address], 08/25/2024 14:37:32 08/18/20 24 08/19/2024 CBC WITH DIFFE RENTI AL/PL ATELE T platelets 400 x10e3 /uL 150-45 0 normal Not Available [facility] ([facility]) [address] [facility], [place], [address], 08/25/2024 14:37:32 08/18/20 24 08/19/2024 CBC WITH DIFFE RENTI AL/PL ATELE T neutrophils 52 % not estab. normal Not Available [facility] ([facility]) [address] [facility], [place], [address], 08/25/2024 14:37:32 08/18/20 24 08/19/2024 CBC WITH DIFFE RENTI AL/PL ATELE T lymphs 34 % not estab. normal Not Available [facility] ([facility]) [address] [place], [address], 08/25/2024 14:37:32 08/18/20 24 08/19/2024 CBC WITH DIFFE RENTI AL/PL ATELE T monocytes 9 % not estab. normal Not Available [facility] ([facility]) [address] [place], [address], 08/25/2024 14:37:32 08/18/20 24 08/19/2024 CBC WITH DIFFE RENTI AL/PL ATELE T eos 4 % not estab. normal Not Available [facility] ([facility]) [address] [facility], [place], [address], 08/25/2024 14:37:32 08/18/20 24 08/19/2024 CBC WITH DIFFE RENTI AL/PL ATELE T basos 1 % not estab. normal Not Available [facility] ([facility]) [address] [facility], [place], [address], 08/25/2024 14:37:32 08/18/20 24 08/19/2024 CBC WITH DIFFE RENTI AL/PL ATELE T immature cells STACKER STRAIGHTENER Not Available [facility] ([facility]) [address] [place], [address], 08/25/2024 14:37:32 08/18/20 24 08/19/2024 CBC WITH DIFFE RENTI AL/PL ATELE T neutrophils (absolute) 3.4 x10e3 /uL 1.4-7. 0 normal Not Available [facility] ([facility]) [address] [place], [address], 08/25/2024 14:37:32 08/18/20 24 08/19/2024 CBC WITH DIFFE RENTI AL/PL ATELE T lymphs (absolute) 2.2 x10e3 /uL 0.7-3. 1 normal Not Available [facility] ([facility]) [address] [place], [address], 08/25/2024 14:37:32 08/18/20 24 08/19/2024 CBC WITH DIFFE RENTI AL/PL ATELE T monocytes(ab solute) 0.6 x10e3 /uL 0.1-0. 9 normal Not Available [facility] ([facility]) [address] [facility], [place], [address], 08/25/2024 14:37:32 08/18/20 24 08/19/2024 CBC WITH DIFFE RENTI AL/PL ATELE T eos (absolute) 0.3 x10e3 /uL 0.0-0. 4 normal Not Available [facility] ([facility]) [address] [facility], [place], [address], 08/25/2024 14:37:32 08/18/20 24 08/19/2024 CBC WITH DIFFE RENTI AL/PL ATELE T baso (absolute) 0.1 x10e3 /uL 0.0-0. 2 normal Not Available [facility] ([facility]) [address] [facility], [place], [address], 08/25/2024 14:37:32 08/18/20 24 08/19/2024 CBC WITH DIFFE RENTI AL/PL ATELE T immature granulocytes 0 % not estab. Not Available [facility] ([facility]) [address] [facility], [place], [address], 08/25/2024 14:37:32 08/18/20 24 08/19/2024 CBC WITH DIFFE RENTI AL/PL ATELE T immature grans (abs) 0.0 x10e3 /uL 0.0-0. 1 Not Available [facility] ([facility]) [address] [facility], [place], [address], 08/25/2024 14:37:32 08/18/20 24 08/19/2024 CBC WITH DIFFE RENTI AL/PL ATELE T NRBC STACKER STRAIGHTENER Not Available [facility] ([facility]) [address] [facility], [place], [address], 08/25/2024 14:37:32 08/18/20 24 08/19/2024 CBC WITH DIFFE RENTI AL/PL ATELE T hematology comments: STACKER STRAIGHTENER Not Available [facility] ([facility]) [address] [facility], [place], [address], 08/25/2024 14:37:32 08/18/20 24 08/19/2024 COMP. METAB OLIC PANEL (14) glucose 56 mg/dL 70-99 below low normal Not Available [facility] ([facility]) [address] [facility] [place], [address], 08/25/2024 14:37:34 08/18/20 24 08/19/2024 COMP. METAB OLIC PANEL (14) BUN 6 mg/dL 6-24 normal Not Available [facility] ([facility]) [address] [facility], [place], [address], 08/25/2024 14:37:34 08/18/20 24 08/19/2024 COMP. METAB OLIC PANEL (14) creatinine 0.78 mg/dL 0.57-1 .00 normal Not Available [facility] ([facility]) [address] [facility] [place], [address], 08/25/2024 14:37:34 08/18/20 24 08/19/2024 COMP. METAB OLIC PANEL (14) eGFR 88 mL/mi n/1.7 3 >59 normal Not Available [facility] ([facility]) [address] [facility], [place], [address], 08/25/2024 14:37:34 08/18/20 24 08/19/2024 COMP. METAB OLIC PANEL (14) BUN/creatini ne ratio 8 9-23 below low normal Not Available [facility] ([facility]) [address] [facility], [address], 08/25/2024 14:37:34 08/18/20 24 08/19/2024 COMP. METAB OLIC PANEL (14) sodium 129 mmol/ L 134-14 4 below low normal Not Available [facility] ([facility]) [address] [facility], [place], [address], 08/25/2024 14:37:34 08/18/20 24 08/19/2024 COMP. METAB OLIC PANEL (14) potassium 4.8 mmol/ L 3.5-5. 2 normal Not Available [facility] ([facility]) [address] [place], [address], 08/25/2024 14:37:34 08/18/20 24 08/19/2024 COMP. METAB OLIC PANEL (14) chloride 90 mmol/ L 96-106 below low normal Not Available [facility] ([facility]) [address] [place], [address], 08/25/2024 14:37:34 08/18/20 24 08/19/2024 COMP. METAB OLIC PANEL (14) carbon dioxide, total 21 mmol/ L 20-29 normal Not Available [facility] ([facility]) [address] [place], [address], 08/25/2024 14:37:34 08/18/20 24 08/19/2024 COMP. METAB OLIC PANEL (14) calcium 8.9 mg/dL 8.7-10 .2 normal Not Available [facility] ([facility]) [address] [place], [address], 08/25/2024 14:37:34 08/18/20 24 08/19/2024 COMP. METAB OLIC PANEL (14) protein, total 6.3 g/dL 6.0-8. 5 normal Not Available [facility] ([facility]) [address] [facility] [place], [address], 08/25/2024 14:37:34 08/18/20 24 08/19/2024 COMP. METAB OLIC PANEL (14) albumin 3.9 g/dL 3.8-4. 9 normal Not Available [facility] ([facility]) [address] [place], [address], 08/25/2024 14:37:34 08/18/20 24 08/19/2024 COMP. METAB OLIC PANEL (14) globulin, total 2.4 g/dL 1.5-4. 5 Not Available [facility] ([facility]) [address] [facility] [place], [address], 08/25/2024 14:37:34 08/18/20 24 08/19/2024 COMP. METAB OLIC PANEL (14) bilirubin, total 0.3 mg/dL 0.0-1. 2 normal Not Available [facility] ([facility]) [address] [facility] [place], [address], 08/25/2024 14:37:34 08/18/20 24 08/19/2024 COMP. METAB OLIC PANEL (14) alkaline phosphatase 152 IU/L 44-121 above high normal Not Available [facility] ([facility]) [address] [facility] [place], [address], 08/25/2024 14:37:34 08/18/20 24 08/19/2024 COMP. METAB OLIC PANEL (14) AST (SGOT) 21 IU/L 0-40 normal Not Available [facility] ([facility]) [address] [facility], [address], 08/25/2024 14:37:34 08/18/20 24 08/19/2024 COMP. METAB OLIC PANEL (14) ALT (SGPT) 20 IU/L 0-32 normal Not Available [facility] ([facility]) [address] [facility], [address], 08/25/2024 14:37:34 08/18/20 24 08/19/2024 LIPID PANEL cholesterol, total 175 mg/dL 100-19 9 normal Not Available [facility] ([facility]) [address] [facility] [place], [address], 08/25/2024 14:37:35 08/18/20 24 08/19/2024 LIPID PANEL triglyceride s 99 mg/dL 0-149 normal Not Available [facility] ([facility]) [address] [place], [address], 08/25/2024 14:37:35 08/18/20 24 08/19/2024 LIPID PANEL HDL cholesterol 90 mg/dL >39 normal Not Available [facility] ([facility]) [address] [place], [address], 08/25/2024 14:37:35 08/18/20 24 08/19/2024 LIPID PANEL VLDL cholesterol sharon 17 mg/dL 5-40 Not Available [facility] ([facility]) [address] [place], [address], 08/25/2024 14:37:35 08/18/20 24 08/19/2024 LIPID PANEL LDL chol calc ([facility]) 68 mg/dL 0-99 Not Available [facility] ([facility]) [address] [facility], [place], [address], 08/25/2024 14:37:35 08/18/20 24 08/19/2024 LIPID PANEL LDL calc comment: STACKER STRAIGHTENER Not Available [facility] ([facility]) [address] [facility], [place], [address], 08/25/2024 14:37:35 08/18/20 24 08/24/2024 VITAM IN E vitamin E(alpha tocopherol) 9.3 mg/L 7.0-25 .1 Not Available [facility] ([facility]) [address] [place], [address], 08/25/2024 14:37:36 08/18/20 24 08/24/2024 VITAM IN E vitamin E(gamma tocopherol) 0.8 mg/L 0.5-5. 5 Refer ence inter vals for alpha and gamma -toco phero l deter mined from [facility] [employer] natglynn n Surve y, 2004- 2005. Indiv idual s with alpha -toco phero l level s less than 5.0 mg/L are consi dered vitam in E defic ient. Not Available [facility] ([facility]) [address] [facility], [place], [address], 08/25/2024 14:37:36 08/18/20 24 08/19/2024 HEMOG LOBIN A1C hemoglobin A1C 5.8 % 4.8-5. 6 above high normal Predi abete s: 5.7 - 6.4 Diabe zoila: >6.4 Glyce carol contr ol for adult s with diabe zoila: <7.0 Not Available [facility] ([facility]) [address] [facility], [place], [address], 08/25/2024 14:37:37 08/18/20 24 08/19/2024 FOLAT E (FOLI C ACID) , SERUM folate (folic acid), serum 13.4 NG/mL >3.0 normal A serum folat e mikaela ntrat ion of less than 3.1 ng/mL is consi dered to repre sent clini sharon defic iency . Not Available [facility] ([facility]) [address] [facility], [place], [address], 08/25/2024 14:37:38 08/18/20 24 08/24/2024 VITAM IN [...] Admin istra tion. Not Available [facility] ([facility]) [address] [facility], [place], [address], 08/25/2024 14:37:38 08/18/20 24 08/19/2024 VITAM IN [...] Endoc rine Socie ty went on to fur er defin e vitam in D insuf ficie ncy as a level betwe en 21 and 29 ng/mL (2). 1. IOM (Inst itute of Medic ine). 2010. Dieta ry refer ence intak es for calci um and D. Karis bunch [place]: [facility] . 2. Dipak mejia MF, Henry waller [place], Che off-F errar i FARRELL, et al. Evalu ation , treat ment, and preve ntion of vitam in D defic iency : an Endoc rine Socie ty clini sharon pract ice guide line. JCEM. 2010; 96(7) :1911 -30. Not Available [facility] ([facility]) [address] [facility], [place], [address], 08/25/2024 14:37:39 08/18/20 24 08/25/2024 VITAM IN B1 (THIA MINE) , BLOOD vit. B1, whole blood 121.7 nmol/ L 66.5-2 00.0 Not Available [facility] ([facility]) [address] [place], [address], 08/25/2024 14:37:40 08/18/20 24 08/21/2024 METHY LMALO INDIGO ACID, SERUM methylmaloni c acid, serum 130 nmol/ L 0-378 Not Available [facility] ([facility]) [address] [place], [address], 08/25/2024 14:37:41 08/18/20 24 08/19/2024 COPPE R, SERUM OR PLASM A copper, serum or plasma 132 ug/dL 80-158 Detec tion Limit = 5 Not Available [facility] ([facility]) [address] [place], [address], 08/25/2024 14:37:42 08/18/20 24 08/19/2024 ZINC, PLASM A OR SERUM zinc, plasma or serum 52 ug/dL 44-115 normal Detec tion Limit = 5 Not Available [facility] ([facility]) [address] [place], [address], 08/25/2024 14:37:43 08/18/20 24 08/19/2024 PREAL BUMIN prealbumin 19 mg/dL 10-36 Not Available [facility] ([facility]) [address] [place], [address], 08/25/2024 14:37:44 08/18/20 24 08/22/2024 SELEN IUM, BLOOD selenium, blood 116 ug/L 100-34 0 Detec tion Limit = 10 Not Available [facility] ([facility]) [address] [place], [address], 08/25/2024 14:37:45 11/18/19 25 11/18/2024 FE+TI BC+FE R iron bind.cap.(TI BC) 251 ug/dL 250-45 0 normal Not Available [facility] ([facility]) [address] [place], [address], 11/28/2024 18:38:00 11/18/19 25 11/18/2024 FE+TI BC+FE R UIBC 188 ug/dL 131-42 5 normal Not Available [facility] ([facility]) [address] [place], [address], 11/28/2024 18:38:00 11/18/19 25 11/18/2024 FE+TI BC+FE R iron 63 ug/dL 27-159 normal Not Available [facility] ([facility]) [address] [place], [address], 11/28/2024 18:38:00 11/18/19 25 11/18/2024 FE+TI BC+FE R iron saturation 25 % 15-55 normal Not Available [facility] ([facility]) [address] [place], [address], 11/28/2024 18:38:00 11/18/19 25 11/18/2024 FE+TI BC+FE R ferritin 271 NG/mL 15-150 above high normal Not Available [facility] ([facility]) [address] [place], [address], 11/28/2024 18:38:00 11/18/19 25 11/18/2024 TSH+F REE T4 TSH 28.400 uIU/m L 0.450- 4.500 above high normal Not Available [facility] ([facility]) [address] [place], [address], 11/28/2024 18:38:01 11/18/19 25 11/18/2024 TSH+F REE T4 T4,free(dire ct) 0.70 NG/dL 0.82-1 .77 below low normal Not Available [facility] ([facility]) [address] [place], [address], 11/28/2024 18:38:01 11/18/19 25 11/18/2024 CBC WITH DIFFE RENTI AL/PL ATELE T WBC 6.4 x10e3 /uL 3.4-10 .8 normal Not Available [facility] ([facility]) [address] [place], [address], 11/28/2024 18:38:02 11/18/19 25 11/18/2024 CBC WITH DIFFE RENTI AL/PL ATELE T RBC 4.36 x10e6 /uL 3.77-5 .28 normal Not Available [facility] ([facility]) [address] [place], [address], 11/28/2024 18:38:02 11/18/19 25 11/18/2024 CBC WITH DIFFE RENTI AL/PL ATELE T hemoglobin 13.0 g/dL 11.1-1 5.9 normal Not Available [facility] ([facility]) [address] [place], [address], 11/28/2024 18:38:02 11/18/19 25 11/18/2024 CBC WITH DIFFE RENTI AL/PL ATELE T hematocrit 39.6 % 34.0-4 6.6 normal Not Available [facility] ([facility]) [address] [place], [address], 11/28/2024 18:38:02 11/18/19 25 11/18/2024 CBC WITH DIFFE RENTI AL/PL ATELE T MCV 91 fL 79-97 normal Not Available [facility] ([facility]) [address] [place], [address], 11/28/2024 18:38:02 11/18/19 25 11/18/2024 CBC WITH DIFFE RENTI AL/PL ATELE T MCH 29.8 pg 26.6-3 3.0 normal Not Available [facility] ([facility]) [address] [place], [address], 11/28/2024 18:38:02 11/18/19 25 11/18/2024 CBC WITH DIFFE RENTI AL/PL ATELE T MCHC 32.8 g/dL 31.5-3 5.7 normal Not Available [facility] ([facility]) [address] [place], [address], 11/28/2024 18:38:02 11/18/19 25 11/18/2024 CBC WITH DIFFE RENTI AL/PL ATELE T RDW 12.5 % 11.7-1 5.4 Not Available [facility] ([facility]) [address] [facility], [place], [address], 11/28/2024 18:38:02 11/18/19 25 11/18/2024 CBC WITH DIFFE RENTI AL/PL ATELE T platelets 312 x10e3 /uL 150-45 0 normal Not Available [facility] ([facility]) [address] [facility], [place], [address], 11/28/2024 18:38:02 11/18/19 25 11/18/2024 CBC WITH DIFFE RENTI AL/PL ATELE T neutrophils 66 % not estab. normal Not Available [facility] ([facility]) [address] [facility], [place], [address], 11/28/2024 18:38:02 11/18/19 25 11/18/2024 CBC WITH DIFFE RENTI AL/PL ATELE T lymphs 23 % not estab. normal Not Available [facility] ([facility]) [address] [facility], [place], [address], 11/28/2024 18:38:02 11/18/19 25 11/18/2024 CBC WITH DIFFE RENTI AL/PL ATELE T monocytes 7 % not estab. normal Not Available [facility] ([facility]) [address] [facility], [place], [address], 11/28/2024 18:38:02 11/18/19 25 11/18/2024 CBC WITH DIFFE RENTI AL/PL ATELE T eos 3 % not estab. normal Not Available [facility] ([facility]) [address] [facility], [place], [address], 11/28/2024 18:38:02 11/18/19 25 11/18/2024 CBC WITH DIFFE RENTI AL/PL ATELE T basos 1 % not estab. normal Not Available [facility] ([facility]) [address] [facility], [place], [address], 11/28/2024 18:38:02 11/18/19 25 11/18/2024 CBC WITH DIFFE RENTI AL/PL ATELE T immature cells STACKER STRAIGHTENER Not Available [facility] ([facility]) [address] [facility], [place], [address], 11/28/2024 18:38:02 11/18/19 25 11/18/2024 CBC WITH DIFFE RENTI AL/PL ATELE T neutrophils (absolute) 4.2 x10e3 /uL 1.4-7. 0 normal Not Available [facility] ([facility]) [address] [facility], [place], [address], 11/28/2024 18:38:02 11/18/19 25 11/18/2024 CBC WITH DIFFE RENTI AL/PL ATELE T lymphs (absolute) 1.5 x10e3 /uL 0.7-3. 1 normal Not Available [facility] ([facility]) [address] [place], [address], 11/28/2024 18:38:02 11/18/19 25 11/18/2024 CBC WITH DIFFE RENTI AL/PL ATELE T monocytes(ab solute) 0.5 x10e3 /uL 0.1-0. 9 normal Not Available [facility] ([facility]) [address] [place], [address], 11/28/2024 18:38:02 11/18/19 25 11/18/2024 CBC WITH DIFFE RENTI AL/PL ATELE T eos (absolute) 0.2 x10e3 /uL 0.0-0. 4 normal Not Available [facility] ([facility]) [address] [place], [address], 11/28/2024 18:38:02 11/18/19 25 11/18/2024 CBC WITH DIFFE RENTI AL/PL ATELE T baso (absolute) 0.1 x10e3 /uL 0.0-0. 2 normal Not Available [facility] ([facility]) [address] [facility], [place], [address], 11/28/2024 18:38:02 11/18/19 25 11/18/2024 CBC WITH DIFFE RENTI AL/PL ATELE T immature granulocytes 0 % not estab. Not Available [facility] ([facility]) [address] [facility], [place], [address], 11/28/2024 18:38:02 11/18/19 25 11/18/2024 CBC WITH DIFFE RENTI AL/PL ATELE T immature grans (abs) 0.0 x10e3 /uL 0.0-0. 1 Not Available [facility] ([facility]) [address] [facility], [place], [address], 11/28/2024 18:38:02 11/18/19 25 11/18/2024 CBC WITH DIFFE RENTI AL/PL ATELE T NRBC STACKER STRAIGHTENER Not Available [facility] ([facility]) [address] [facility], [place], [address], 11/28/2024 18:38:02 11/18/19 25 11/18/2024 CBC WITH DIFFE RENTI AL/PL ATELE T hematology comments: STACKER STRAIGHTENER Not Available [facility] ([facility]) [address] [place], [address], 11/28/2024 18:38:02 11/18/19 25 11/18/2024 COMP. METAB OLIC PANEL (14) glucose 78 mg/dL 70-99 normal Not Available [facility] ([facility]) [address] [place], [address], 11/28/2024 18:38:03 11/18/19 25 11/18/2024 COMP. METAB OLIC PANEL (14) BUN 7 mg/dL 6-24 normal Not Available [facility] ([facility]) [address] [place], [address], 11/28/2024 18:38:03 11/18/19 25 11/18/2024 COMP. METAB OLIC PANEL (14) creatinine 0.93 mg/dL 0.57-1 .00 normal Not Available [facility] ([facility]) [address] [place], [address], 11/28/2024 18:38:03 11/18/19 25 11/18/2024 COMP. METAB OLIC PANEL (14) eGFR 71 mL/mi n/1.7 3 >59 normal Not Available [facility] ([facility]) [address] [facility] [place], [address], 11/28/2024 18:38:03 11/18/19 25 11/18/2024 COMP. METAB OLIC PANEL (14) BUN/creatini ne ratio 8 9-23 below low normal Not Available [facility] ([facility]) [address] [facility] [place], [address], 11/28/2024 18:38:03 11/18/19 25 11/18/2024 COMP. METAB OLIC PANEL (14) sodium 138 mmol/ L 134-14 4 normal Not Available [facility] ([facility]) [address] [facility] [place], [address], 11/28/2024 18:38:03 11/18/19 25 11/18/2024 COMP. METAB OLIC PANEL (14) potassium 4.2 mmol/ L 3.5-5. 2 normal Not Available [facility] ([facility]) [address] [facility] [place], [id number], 11/28/2024 18:38:03 11/18/19 25 11/18/2024 COMP. METAB OLIC PANEL (14) chloride 101 mmol/ L 96-106 normal Not Available [facility] ([facility]) [address] [facility] [place], [id number], 11/28/2024 18:38:03 11/18/19 25 11/18/2024 COMP. METAB OLIC PANEL (14) carbon dioxide, total 24 mmol/ L 20-29 normal Not Available [facility] ([facility]) [address] [place], [id number], 11/28/2024 18:38:03 11/18/19 25 11/18/2024 COMP. METAB OLIC PANEL (14) calcium 8.9 mg/dL 8.7-10 .2 normal Not Available [facility] ([facility]) [address] [place], [id number], 11/28/2024 18:38:03 11/18/19 25 11/18/2024 COMP. METAB OLIC PANEL (14) protein, total 5.9 g/dL 6.0-8. 5 below low normal Not Available [facility] ([facility]) [address] [place], [id number], 11/28/2024 18:38:03 11/18/19 25 11/18/2024 COMP. METAB OLIC PANEL (14) albumin 3.8 g/dL 3.8-4. 9 normal Not Available [facility] ([facility]) [address] [place], [address], 11/28/2024 18:38:03 11/18/19 25 11/18/2024 COMP. METAB OLIC PANEL (14) globulin, total 2.1 g/dL 1.5-4. 5 Not Available [facility] ([facility]) [address] [place], [address], 11/28/2024 18:38:03 11/18/19 25 11/18/2024 COMP. METAB OLIC PANEL (14) bilirubin, total 0.3 mg/dL 0.0-1. 2 normal Not Available [facility] ([facility]) [address] [place], [address], 11/28/2024 18:38:03 11/18/19 25 11/18/2024 COMP. METAB OLIC PANEL (14) alkaline phosphatase 155 IU/L 44-121 above high normal Not Available [facility] ([facility]) [address] [place], [address], 11/28/2024 18:38:03 11/18/19 25 11/18/2024 COMP. METAB OLIC PANEL (14) AST (SGOT) 22 IU/L 0-40 normal Not Available [facility] ([facility]) [address] [place], [address], 11/28/2024 18:38:03 11/18/19 25 11/18/2024 COMP. METAB OLIC PANEL (14) ALT (SGPT) 19 IU/L 0-32 normal Not Available [facility] ([facility]) [address] [place], [address], 11/28/2024 18:38:03 11/18/19 25 11/18/2024 LIPID PANEL cholesterol, total 179 mg/dL 100-19 9 normal Not Available [facility] ([facility]) [address] [place], [address], 11/28/2024 18:38:03 11/18/19 25 11/18/2024 LIPID PANEL triglyceride s 63 mg/dL 0-149 normal Not Available [facility] ([facility]) [address] [place], [address], 11/28/2024 18:38:03 11/18/19 25 11/18/2024 LIPID PANEL HDL cholesterol 95 mg/dL >39 normal Not Available [facility]) [address] [place], [address], 11/28/2024 18:38:03 11/18/19 25 11/18/2024 LIPID PANEL VLDL cholesterol sharon 12 mg/dL 5-40 Not Available [facility] ([facility]) [address] [place], [address], 11/28/2024 18:38:03 11/18/19 25 11/18/2024 LIPID PANEL LDL chol calc ([facility]) 72 mg/dL 0-99 Not Available [facility] ([facility]) [address] [facility], [place], [address], 11/28/2024 18:38:03 11/18/19 25 11/18/2024 LIPID PANEL LDL calc comment: STACKER STRAIGHTENER Not Available [facility] ([facility]) [address] [facility], [place], [address], 11/28/2024 18:38:03 11/18/19 25 11/27/2024 VITAM IN E vitamin E(alpha tocopherol) 10.7 mg/L 7.0-25 .1 Not Available [facility] ([facility]) [address] [facility], [place], [address], 11/28/2024 18:38:04 11/18/19 25 11/27/2024 VITAM IN [...] E defic ient. Not Available [facility] ([facility]) [address] [facility], [place], [address], 11/28/2024 18:38:04 11/18/19 25 11/18/2024 HEMOG LOBIN A1C hemoglobin A1C 5.4 % 4.8-5. 6 normal Predi abete s: 5.7 - 6.4 Diabe zoila: >6.4 Glyce carol contr ol for adult s with diabe zoila: <7.0 Not Available [facility] ([facility]) [address] [place], [address], 11/28/2024 18:38:05 11/18/19 25 11/18/2024 FOLAT E (FOLI C ACID) , SERUM folate (folic acid), serum >20.0 NG/mL >3.0 A serum folat e mikaela ntrat ion of less than 3.1 ng/mL is consi dered to repre sent clini sharon defic iency . Not Available [facility] ([facility]) [address] [facility], [place], [address], 11/28/2024 18:38:05 11/18/19 25 11/27/2024 VITAM IN [...] Admin istra tion. Not Available [facility] ([facility]) [address] [facility], [place], [address], 11/28/2024 18:38:06 11/18/19 25 11/18/2024 VITAM IN [...] um and D. Karis bunch [place]: [facility] . 2. Dipak mejia MF, Henry waller [place], Che off-F thierno i FARRELL, et al. Evalu ation , treat ment, and preve ntion of vitam in D defic iency : an Endoc rine Socie ty clini sharon pract ice guide line. JCEM. 2010; 96(7) :1911 -30. Not Available [facility] ([facility]) [address] [place], [address], 11/28/2024 18:38:06 11/18/19 25 11/23/2024 VITAM IN B1 (THIA MINE) , BLOOD vit. B1, whole blood 133.4 nmol/ L 66.5-2 00.0 Not Available [facility] ([facility]) [address] [place], [address], 11/28/2024 18:38:07 11/18/19 25 11/23/2024 METHY LMALO INDIGO ACID, SERUM methylmaloni c acid, serum 165 nmol/ L 0-378 Not Available [facility] ([facility]) [address] [place], [address], 11/28/2024 18:38:07 11/18/19 25 11/21/2024 COPPE R, SERUM OR PLASM A copper, serum or plasma 122 ug/dL 80-158 Detec tion Limit = 5 Not Available [facility] ([facility]) [address] [place], [address], 11/28/2024 18:38:08 11/18/19 25 11/21/2024 ZINC, PLASM A OR SERUM zinc, plasma or serum 56 ug/dL 44-115 normal Detec tion Limit = 5 Not Available [facility] ([facility]) [address] [place], [address], 11/28/2024 18:38:08 11/18/19 25 11/18/2024 PREAL BUMIN prealbumin 16 mg/dL 10-36 Not Available [facility] ([facility]) [address] [place], [address], 11/28/2024 18:38:09 11/18/19 25 11/28/2024 SELEN IUM, BLOOD selenium, blood 115 ug/L 100-34 0 Detec tion Limit = 10 Not Available [facility] ([facility]) [address] [place], [address], 11/28/2024 18:38:09 02/17/20 25 02/17/2025 FE+TI BC+FE R iron bind.cap.(TI BC) 294 ug/dL 250-45 0 normal Not Available [facility] ([facility]) [address] [place], [address], 02/23/2025 03:36:36 02/17/20 25 02/17/2025 FE+TI BC+FE R UIBC 210 ug/dL 131-42 5 normal Not Available [facility] ([facility]) [address] [place], [address], 02/23/2025 03:36:36 02/17/20 25 02/17/2025 FE+TI BC+FE R iron 84 ug/dL 27-159 normal Not Available [facility] ([facility]) [address] [place], [address], 02/23/2025 03:36:36 02/17/20 25 02/17/2025 FE+TI BC+FE R iron saturation 29 % 15-55 normal Not Available [facility] ([facility]) [address] [place], [address], 02/23/2025 03:36:36 02/17/20 25 02/17/2025 FE+TI BC+FE R ferritin 413 NG/mL 15-150 above high normal Not Available [facility] ([facility]) [address] [place], [address], 02/23/2025 03:36:36 02/17/20 25 02/17/2025 TSH+F REE T4 TSH 9.750 uIU/m L 0.450- 4.500 above high normal Not Available [facility] ([facility]) [address] [place], [address], 02/23/2025 03:36:37 02/17/20 25 02/17/2025 TSH+F REE T4 T4,free(dire ct) 1.34 NG/dL 0.82-1 .77 normal Not Available [facility] ([facility]) [address] [place], [address], 02/23/2025 03:36:37 02/17/20 25 02/16/2025 CBC WITH DIFFE RENTI AL/PL ATELE T WBC 6.7 x10e3 /uL 3.4-10 .8 normal Not Available [facility] ([facility]) [address] [place], [address], 02/23/2025 03:36:38 02/17/20 25 02/16/2025 CBC WITH DIFFE RENTI AL/PL ATELE T RBC 4.86 x10e6 /uL 3.77-5 .28 normal Not Available [facility] ([facility]) [address] [place], [address], 02/23/2025 03:36:38 02/17/20 25 02/16/2025 CBC WITH DIFFE RENTI AL/PL ATELE T hemoglobin 14.5 g/dL 11.1-1 5.9 normal Not Available [facility] ([facility]) [address] [place], [address], 02/23/2025 03:36:38 02/17/20 25 02/16/2025 CBC WITH DIFFE RENTI AL/PL ATELE T hematocrit 45.5 % 34.0-4 6.6 normal Not Available [facility] ([facility]) [address] [facility], [place], [address], 02/23/2025 03:36:38 02/17/20 25 02/16/2025 CBC WITH DIFFE RENTI AL/PL ATELE T MCV 94 fL 79-97 normal Not Available [facility] ([facility]) [address] [facility], [place], [address], 02/23/2025 03:36:38 02/17/20 25 02/16/2025 CBC WITH DIFFE RENTI AL/PL ATELE T MCH 29.8 pg 26.6-3 3.0 normal Not Available [facility] ([facility]) [address] [facility], [place], [address], 02/23/2025 03:36:38 02/17/20 25 02/16/2025 CBC WITH DIFFE RENTI AL/PL ATELE T MCHC 31.9 g/dL 31.5-3 5.7 normal Not Available [facility] ([facility]) [address] [facility], [place], [address], 02/23/2025 03:36:38 02/17/20 25 02/16/2025 CBC WITH DIFFE RENTI AL/PL ATELE T RDW 12.2 % 11.7-1 5.4 Not Available [facility] ([facility]) [address] [place], [address], 02/23/2025 03:36:38 02/17/20 25 02/16/2025 CBC WITH DIFFE RENTI AL/PL ATELE T platelets 341 x10e3 /uL 150-45 0 normal Not Available [facility] ([facility]) [address] [place], [address], 02/23/2025 03:36:38 02/17/20 25 02/16/2025 CBC WITH DIFFE RENTI AL/PL ATELE T neutrophils 66 % not estab. normal Not Available [facility] ([facility]) [address] [facility], [place], [address], 02/23/2025 03:36:38 02/17/20 25 02/16/2025 CBC WITH DIFFE RENTI AL/PL ATELE T lymphs 22 % not estab. normal Not Available [facility] ([facility]) [address] [facility], [place], [address], 02/23/2025 03:36:38 02/17/20 25 02/16/2025 CBC WITH DIFFE RENTI AL/PL ATELE T monocytes 8 % not estab. normal Not Available [facility] ([facility]) [address] [facility], [place], [address], 02/23/2025 03:36:38 02/17/20 25 02/16/2025 CBC WITH DIFFE RENTI AL/PL ATELE T eos 3 % not estab. normal Not Available [facility] ([facility]) [address] [facility], [place], [address], 02/23/2025 03:36:38 02/17/20 25 02/16/2025 CBC WITH DIFFE RENTI AL/PL ATELE T basos 1 % not estab. normal Not Available [facility] ([facility]) [address] [facility], [place], [address], 02/23/2025 03:36:38 02/17/20 25 02/16/2025 CBC WITH DIFFE RENTI AL/PL ATELE T immature cells STACKER STRAIGHTENER Not Available [facility] ([facility]) [address] [facility], [place], [address], 02/23/2025 03:36:38 02/17/20 25 02/16/2025 CBC WITH DIFFE RENTI AL/PL ATELE T neutrophils (absolute) 4.4 x10e3 /uL 1.4-7. 0 normal Not Available [facility] ([facility]) [address] [facility], [place], [address], 02/23/2025 03:36:38 02/17/20 25 02/16/2025 CBC WITH DIFFE RENTI AL/PL ATELE T lymphs (absolute) 1.5 x10e3 /uL 0.7-3. 1 normal Not Available [facility] ([facility]) [address] [facility], [place], [address], 02/23/2025 03:36:38 02/17/20 25 02/16/2025 CBC WITH DIFFE RENTI AL/PL ATELE T monocytes(ab solute) 0.6 x10e3 /uL 0.1-0. 9 normal Not Available [facility] ([facility]) [address] [place], [address], 02/23/2025 03:36:38 02/17/20 25 02/16/2025 CBC WITH DIFFE RENTI AL/PL ATELE T eos (absolute) 0.2 x10e3 /uL 0.0-0. 4 normal Not Available [facility] ([facility]) [address] [facility], [place], [address], 02/23/2025 03:36:38 02/17/20 25 02/16/2025 CBC WITH DIFFE RENTI AL/PL ATELE T baso (absolute) 0.1 x10e3 /uL 0.0-0. 2 normal Not Available [facility] ([facility]) [address] [facility], [place], [address], 02/23/2025 03:36:38 02/17/20 25 02/16/2025 CBC WITH DIFFE RENTI AL/PL ATELE T immature granulocytes 0 % not estab. Not Available [facility] ([facility]) [address] [place], [address], 02/23/2025 03:36:38 02/17/20 25 02/16/2025 CBC WITH DIFFE RENTI AL/PL ATELE T immature grans (abs) 0.0 x10e3 /uL 0.0-0. 1 Not Available [facility] ([facility]) [address], [place], [address], 02/23/2025 03:36:38 02/17/20 25 02/16/2025 CBC WITH DIFFE RENTI AL/PL ATELE T NRBC STACKER STRAIGHTENER Not Available [facility] ([facility]) [address], [place], [address], 02/23/2025 03:36:38 02/17/20 25 02/16/2025 CBC WITH DIFFE RENTI AL/PL ATELE T hematology comments: STACKER STRAIGHTENER Not Available [facility] ([facility]) [address], [place], [address], 02/23/2025 03:36:38 02/17/20 25 02/17/2025 COMP. METAB OLIC PANEL (14) glucose 73 mg/dL 70-99 normal Not Available [facility] ([facility]) [address], [place], [address], 02/23/2025 03:36:38 02/17/20 25 02/17/2025 COMP. METAB OLIC PANEL (14) BUN 10 mg/dL 6-24 normal Not Available [facility] ([facility]) [address], [place], [address], 02/23/2025 03:36:38 02/17/20 25 02/17/2025 COMP. METAB OLIC PANEL (14) creatinine 0.98 mg/dL 0.57-1 .00 normal Not Available [facility] ([facility]) [address] [place], [address], 02/23/2025 03:36:38 02/17/20 25 02/17/2025 COMP. METAB OLIC PANEL (14) eGFR 66 mL/mi n/1.7 3 >59 normal Not Available [facility] ([facility]) [address], [place], [address], 02/23/2025 03:36:38 02/17/20 25 02/17/2025 COMP. METAB OLIC PANEL (14) BUN/creatini ne ratio 10 9-23 normal Not Available [facility] ([facility]) [address] [facility] [place], [address], 02/23/2025 03:36:38 02/17/20 25 02/17/2025 COMP. METAB OLIC PANEL (14) sodium 140 mmol/ L 134-14 4 normal Not Available [facility] ([facility]) [address] [facility] [place], [address], 02/23/2025 03:36:38 02/17/20 25 02/17/2025 COMP. METAB OLIC PANEL (14) potassium 4.0 mmol/ L 3.5-5. 2 normal Not Available [facility] ([facility]) [address] [facility], [address], 02/23/2025 03:36:38 02/17/20 25 02/17/2025 COMP. METAB OLIC PANEL (14) chloride 96 mmol/ L 96-106 normal Not Available [facility] ([facility]) [address] [facility] [place], [address], 02/23/2025 03:36:38 02/17/20 25 02/17/2025 COMP. METAB OLIC PANEL (14) carbon dioxide, total 26 mmol/ L 20-29 normal Not Available [facility] ([facility]) [address] [facility], [address], 02/23/2025 03:36:38 02/17/20 25 02/17/2025 COMP. METAB OLIC PANEL (14) calcium 9.5 mg/dL 8.7-10 .2 normal Not Available [facility] ([facility]) [address] [facility] [place], [address], 02/23/2025 03:36:38 02/17/20 25 02/17/2025 COMP. METAB OLIC PANEL (14) protein, total 7.1 g/dL 6.0-8. 5 normal Not Available [facility] ([facility]) [address] [place], [address], 02/23/2025 03:36:38 02/17/20 25 02/17/2025 COMP. METAB OLIC PANEL (14) albumin 4.5 g/dL 3.8-4. 9 normal Not Available [facility] ([facility]) [address] [place], [address], 02/23/2025 03:36:38 02/17/20 25 02/17/2025 COMP. METAB OLIC PANEL (14) globulin, total 2.6 g/dL 1.5-4. 5 Not Available [facility] ([facility]) [address] [place], [address], 02/23/2025 03:36:38 02/17/20 25 02/17/2025 COMP. METAB OLIC PANEL (14) bilirubin, total 0.4 mg/dL 0.0-1. 2 normal Not Available [facility] ([facility]) [address] [place], [address], 02/23/2025 03:36:38 02/17/20 25 02/17/2025 COMP. METAB OLIC PANEL (14) alkaline phosphatase 194 IU/L 44-121 above high normal Not Available [facility] ([facility]) [address] [place], [address], 02/23/2025 03:36:38 02/17/20 25 02/17/2025 COMP. METAB OLIC PANEL (14) AST (SGOT) 16 IU/L 0-40 normal Not Available [facility] ([facility]) [address] [place], [address], 02/23/2025 03:36:38 02/17/20 25 02/17/2025 COMP. METAB OLIC PANEL (14) ALT (SGPT) 14 IU/L 0-32 normal Not Available [facility] ([facility]) [address] [place], [address], 02/23/2025 03:36:38 02/17/20 25 02/17/2025 LIPID PANEL cholesterol, total 195 mg/dL 100-19 9 normal Not Available [facility] ([facility]) [address] [place], [address], 02/23/2025 03:36:39 02/17/20 25 02/17/2025 LIPID PANEL triglyceride s 111 mg/dL 0-149 normal Not Available [facility] ([facility]) [address] [place], [address], 02/23/2025 03:36:39 02/17/20 25 02/17/2025 LIPID PANEL HDL cholesterol 81 mg/dL >39 normal Not Available [facility]) [address] [place], [address], 02/23/2025 03:36:39 02/17/20 25 02/17/2025 LIPID PANEL VLDL cholesterol sharon 19 mg/dL 5-40 Not Available [facility] ([facility]) [address] [place], [address], 02/23/2025 03:36:39 02/17/20 25 02/17/2025 LIPID PANEL LDL chol calc ([facility]) 95 mg/dL 0-99 Not Available [facility]) [address] [place], [address], 02/23/2025 03:36:39 02/17/20 25 02/17/2025 LIPID PANEL LDL calc comment: STACKER STRAIGHTENER Not Available [facility] ([facility]) [address] [place], [address], 02/23/2025 03:36:39 02/17/20 25 02/22/2025 VITAM IN E vitamin E(alpha tocopherol) 12.6 mg/L 7.0-25 .1 Not Available [facility] ([facility]) [address] [facility], [place], [address], 02/23/2025 03:36:40 02/17/20 25 02/22/2025 VITAM IN E vitamin E(gamma tocopherol) 1.0 mg/L 0.5-5. 5 Refer ence inter vals for alpha and gamma -toco phero l deter mined from [facility] tion Exami natio n Surve y, 2004- 2005. Indiv idual s with alpha -toco phero l level s less than 5.0 mg/L are consi dered vitam in E defic ient. Not Available [facility] ([facility]) [address] [facility], [place], [address], 02/23/2025 03:36:40 02/17/2002/17/2025 HEMOG LOBIN A1C hemoglobin A1C 5.4 % 4.8-5. 6 normal Predi abete s: 5.7 - 6.4 Diabe zoila: >6.4 Glyce carol contr ol for adult s with diabe zoila: <7.0 Not Available [facility] ([facility]) [address] [facility], [place], [address], 02/23/2025 03:36:40 02/17/2002/17/2025 FOLAT E (FOLI C ACID) , SERUM folate (folic acid), serum >20.0 NG/mL >3.0 A serum folat e mikaela ntrat ion of less than 3.1 ng/mL is consi dered to repre sent clini sharon defic iency . Not Available [facility] ([facility]) [address] [facility], [place], [address], 02/23/2025 03:36:41 02/17/20 25 02/22/2025 VITAM IN A, SERUM vitamin A 46.9 ug/dL 20.1-6 2.0 Refer ence inter vals [...] Admin istra tion. Not Available [facility] ([facility]) [address] [facility], [place], [address], 02/23/2025 03:36:41 02/17/2002/17/2025 VITAM IN D, 25-HY DROXY vitamin D, 25-hydroxy 26.5 NG/mL 30.0-1 00.0 below low normal Vitam in D defic iency has been [...] um and D. Karis bunch [place]: The [facility] [employer] . 2. Dipak mejia MF, Henry waller [place], Che off-F errar i FARRELL, et al. Evalu ation , treat ment, and preve ntion of vitam in D defic iency : an Endoc rine Socie ty clini sharon pract ice guide line. JCEM. 2010; 96(7) :1911 -30. Not Available [facility] ([facility]) [address] [facility], [place], [address], 02/23/2025 03:36:42 02/17/20 25 02/21/2025 VITAM IN B1 (THIA MINE) , BLOOD vit. B1, whole blood 165.7 nmol/ L 66.5-2 00.0 Not Available [facility] ([facility]) [address] [place], [address], 02/23/2025 03:36:43 02/17/20 25 02/20/2025 METHY LMALO INDIGO ACID, SERUM methylmaloni c acid, serum 201 nmol/ L 0-378 Not Available [facility] ([facility]) [address] [place], [address], 02/23/2025 03:36:43 02/17/20 25 02/19/2025 COPPE R, SERUM OR PLASM A copper, serum or plasma 108 ug/dL 80-158 Detec tion Limit = 5 Not Available [facility] ([facility]) [address] [facility], [place], [address], 02/23/2025 03:36:44 02/17/20 25 02/19/2025 ZINC, PLASM A OR SERUM zinc, plasma or serum 53 ug/dL 44-115 normal Detec tion Limit = 5 Not Available [facility] ([facility]) [address] [place], [address], 02/23/2025 03:36:44 02/17/20 25 02/17/2025 PREAL BUMIN prealbumin 21 mg/dL 10-36 Not Available [facility] ([facility]) [address] [place], [address], 02/23/2025 03:36:45 02/17/20 25 02/19/2025 SELEN IUM, BLOOD selenium, blood 181 ug/L 100-34 0 Detec tion Limit = 10 Not Available [facility] ([facility]) [address] [place], [address], 02/23/2025 03:36:46 Result Notes None recorded. Problems Name Problem SNOMED Code Status Onset Date Resolution Date Notes Provider Name and Address Organization Details Recorded Time Ulcer of anastomosi s 050055442 Active 2023 Hilario Woods DNP, SITE LEASING AGENT, [employer] [address], [place], [place], [address] [place] [address] , [place] - [place] - [place] & [place] 4 11:59:38 Obstructiv e sleep apnea syndrome 21475562 Active 2024 Hilario Woods DNP, SITE LEASING AGENT, [employer] [address], [place], [place], [address] [place] [address] , [place] - [place] - [place] & [place] 5 08:32:41 Asthma - currently active 589096748 Active 2024 Hilario Woods DNP, SANGEETA, [employer] [address], [place], [address] [place] [address] , [place] - [place] - [place] & [place] 5 08:33:00 Pulmonary emphysema 32368624 Active 2024 Hilario Woods DNP, APRN, [employer] [address], [place], [address] [place] [address] , [place] - [place] - [place] & [place] 5 08:33:06 History of clinical finding in subject 831475190 Active 2024 Hilario Woods DNP, SANGEETA, [employer] [address], [place], [address] [place] [address] , [place] - [place] - [place] & [place] 5 08:33:26 Nodule of lung 035736819 Active 2024 Hilario Woods DNP, SANGEETA, [employer] [address], [place], [address] [place] [address] , [place] - [place] - [place] 5 08:33:48 Hyperlipid emia 66283600 Active 2021 Hilario Woods DNP, SITE LEASING AGENT, [employer] [address], [place], [address] [place] [address] , [place] - [place] - [place] 2 12:50:33 Hypothyroi dism 03774699 Active 2021 Hilario Woods DNP, APRN, [employer] [address], [place], [address] [place] [address] , [place] - [place] - [place] 2 12:50:39 History of sleeve gastrectom y [id number] 07 Active 2021 Hilario Woods DNP, APRN, [employer] [address], [place], [address] [place] [address] , [place] - [place] - [place] 2 12:51:22 Essential hypertensi on 76275480 Active 2021 Hilario Woods DNP, APRN, [employer] [address], [place], [address] [place] [address] , [place] - [place] - [place] 2 13:07:08 Iron deficiency anemia 03707642 Active 2021 Hilario Woods DNP, APRN, [employer] [address], [place], [address] [place] [address] , [place] - [place] - [place] 2 13:18:48 Heartburn 29637105 Active 2021 Hilario Woods DNP, APRN, [employer] [address], [place], [address] [place] [address] , [place] - [place] - [place] & [place] 2 13:39:01 Disorder of function of stomach 050238472 Active 2021 Hilario Woods DNP, APRN, [employer] [address], [place], [address] [place] [address] , [place] - [facility] [facility] & [place] 2 13:39:09 Morbid obesity 698289676 Active 2022 Hilario Woods DNP, APRN, [employer] [address], [place], [address] [place] [address] , [place] - [facility] [facility] & [place] 3 09:30:50 Pre-surger y evaluation Active 2022 Hilario Woods DNP, APRN, [employer] [address], [place], [address] , [place] - [place] - [place] & [place] 3 09:32:01 Nausea [id number] Active 2022 Hilario Woods DNP, SITE LEASING AGENT, STACKER STRAIGHTENER[employer]C [address], [place], [place], [address] [place] [address] , [place] - [facility] - [place] & [place] 3 09:36:40 Unintentio nal weight gain [id number] 04 Active 2023 Hilario Woods, LEVAR, SITE LEASING AGENT, STACKER STRAIGHTENER[employer]C [address], [place], [place], [address] [place] [address] , [place] - [place] - [place] & [place] 4 12:27:34 Vomiting [id number] Active 2023 Hilario Woods DNP, SITE LEASING AGENT, STACKER STRAIGHTENER-C [address], [place], [place], [address] [place] [address] , [place] - [facility] - [place] & [place] 4 14:01:05 Problem Notes None recorded. Procedures Surgical History Date Name Laterality Status Provider Name and Address Organization Details Recorded Time esophagogastroduodenoscopy completed Melanie Ford LPNT [facility] & [place] 3 09:26:22 Julio Cesar-en-Y gastrojejunostomy complete d Melanie Ford LPNT [facility] & [place] 3 08:29:39 laparoscopic sleeve gastrectomy completed Melanie Ford LPNT [facility] & [place] 2 13:00:35 fusion of joint of c ervical spine by anterior approach for deformity of cervical spine completed Melanie FORDE - LPNT [facility] & [place] 2 13:01:48 revision of fusion o f cervical spine completed Melanie FORDE - LPNT [facility] & [place] 2 13:02:08 Stimulation of spinal cord completed Melanie Ford LPNT [facility] & [place] 2 13:02:22 esophagogastroduodenoscopy completed Melanie COOK [facility] & [place] 2 13:02:28 Colonoscopy completed Melanie COOK [facility] & [place] 2 13:02:42 Hysterectomy completed Melanie COOK - [place] & [place] 2 13:03:46 cardiac catheterization completed R liliam COOK [facility] & [place] 2 13:05:15 Imaging Results None recorded. Procedure [...] Available Not Available sucralfate 1 gram tablet active Not Available Not Available Not Available naltrexone [...] Available Not Available Not Available levothyroxi ne 25 mcg tablet TAKE 1 TABLET BY MOUTH ONCE A DAY active Not Available Not Available No t Available famotidine 20 mg tablet Take 1 tablet every day by oral route at bedtime for 30 days. active Not Available Not Available No t Available amitriptyli ne 25 mg tablet TAKE ONE TABLET BY MOUTH AT BEDTIME active Not Available Not Available No t Available Lidoderm 5 % topical patch 07/14 completed Not Available Not Available Not Available ropinirole 0.25 mg tablet TAKE 1 TABLET BY MOUTH 1 TO 3 HOURS BEFROE BEDTIME active Not Available Not Available No t Available sulfacetami de sodium 10 % eye [...] Available levothyroxi ne 200 mcg tablet TAKE 1 TABLET BY MOUTH ONCE [...] t Available pregabalin 75 mg capsule TAKE ONE CAPSULE BY MOUTH 2 TIMES A DAY active Not Available Not Available No t Available B Complex 03/31 completed Not Available [...] completed Not Available Not Available Not Available Symbicort 160 mcg-4.5 mcg/actuati on HFA aerosol inhaler INHALE 2 PUFFS BY MOUTH 2 TIMES A DAY active Not Available Not Available No t Available cholecalcif hao (vitamin D3) 1,250 mcg (50,000 unit) capsule TAKE 1 CAPSULE BY MOUTH ONCE every WEEK active Not Available Not Available No t Available GaviLyte-G 236 gram-22.74 gram-6.74 gram-5.86 gram oral solution MIX AND DRINK 240 ML BY MOUTH EVERY 10 MINUTES AT 6PM THE DAY BEFORE SURGERY UNTIL HALF GONE. THEN DRINK REMAINDER 5-6 HOURS BEFORE EXAM active Not Available Not Available No t Available B12 03/31 completed Not Available Not [...] Body mass index (BMI) Body weight Systolic And Diastolic Provider Name and Address Organization Details Last Updated DateTime 5 160.02 cm 96.3 [degF] 63 /min 44.2 kg/m2 033221. 37 g 153/81 mm[Hg] Mary FORDE [facility] & [place] 5 09:14:23 Date Recorded Body height Body temperature Body mass index (BMI) Body weight Heart rate Systolic And Diastolic Provider Name and Address Organization Details Last Updated DateTime 5 160.02 cm 98 [degF] 44.7 kg/m2 651246. 43 g 78 /min 119/76 mm[Hg] Mary FORDE [facility] & [place] 5 08:11:23 Date Recorded Body height Body temperature Body mass index (BMI) Body weight Heart rate Systolic And Diastolic Provider Name and Address Organization Details Last Updated DateTime 4 160.02 cm 98.1 [degF] 35.8 kg/m2 05157.6 6 g 71 /min 119/78 mm[Hg] Mary Tovar [facility] & [place] 4 13:41:10 Date Recorded Body height Body temperature Body mass index (BMI) Body weight Heart rate Systolic And Diastolic Provider Name and Address Organization Details Last Updated DateTime 4 160.02 cm 98.1 [degF] 39.8 kg/m2 551470. 92 g 64 /min 137/83 mm[Hg] Mary FORDE [facility] & [place] 4 11:41:06 Social History None recorded. Functional Status Question Answer Note LastModified by Organizat ion Details LastModified Time Do you use any illicit or recreational drugs? No [email or web address] Information not available 07/14/2022 What is your level of alcohol consumption? None [email or web address] Information not available 07/14/2022 Mental Status None [...] SNOMED-CT Code Diagnosis ICD10 Code Diagnosis Note [id number] Hilario Woods, DNP, SITE LEASING AGENT, STACKER STRAIGHTENER-C [facility] [address] [place] [address] 07/14/2022 12:39:25 07/14/2022 14:44:14 History of bariatric surgical procedure 530071359 Z98.84 Advised qid intake 50% protein 5517-6140 calories/d y less than 100 carbs/dy Patient [...] speak with patient today History of gastrectomy 698679641 Z90.3 Patient is status post bariatric surgery and at increased risk for vitamin deficienci es and malnutriti on. Bariatric vitamin panel ordered today. Patient will be contacted to correct any vitamin deficienci es. Hyperlipidemia 51708211 E78.5 Hypothyroidism 54310725 E03.9 History of sleeve gastrectomy 7905542931 91397 Z90.3 Essential hypertension 27277296 I10 Iron defic iency anemia 60633465 D50.9 Heartburn 55833081 R12 GERD-patie nt was reassured. We discussed [...] her EGD from since the on a [place]. Possible EGD with Dr. Flores. Disorder o f function of stomach 332584861 K31.89 [id number] Hilario Woods, DNP, SITE LEASING AGENT, STACKER STRAIGHTENER-C [facility] [address] [facility] [address] [place] [address] 01/29/2023 09:27:10 01/29/2023 09:52:58 History of bariatric surgical procedure 924673768 Z98.84 Advised qid intake 50% protein 1021-6410 calories/d y less than 100 carbs/dy Patient [...] declines at this time. History of gastrectomy 579084516 Z90.3 Patient is status post bariatric surgery and at increased risk for vitamin deficienci es and malnutriti on. Bariatric vitamin panel ordered today. Patient will be contacted to correct any vitamin deficienci es. Essential hypertension 66383949 I10 Hyperlipidemia 80365173 E78.5 Hypothyroidism 03781964 E03.9 Iron defic iency anemia 35499172 D50.9 Intentiona l weight loss 026470768 R63.8 Heartburn 17496767 R12 GERD-patie nt was reassured. We discussed [...] her EGD from since the on a [place]. Possible EGD with Dr. Flores. Disorder o f function of stomach 301147407 K31.89 [id number] SHARONA Ruiz [facility] [address] [place] [address] [address] [place] [address] 03/26/2023 09:03:41 03/26/2023 10:01:27 Gastroesophageal reflux disease 460715541 K21.9 We discussed concerns of worsening gastroesop [...] prior to revisional surgery History of gastrectomy 682863328 Z90.3 patient is to continue healthy bariatric diet. Continue routine vitamin supplement ation. We will request may results to complete our chart. Repeat bariatric labs needed approximat sandra May 2023 Iron defic iency anemia 47468649 D50.9 adequately supplement ed. Normal labs January 2023 Vitamin D deficiency 347 63434 E55.9 adequately supplement ed. Normal labs January 2023 [id number] Brennen Flores DO [facility] [address] [facility] [address] [place] [address] 04/18/2023 07:32:42 04/18/2023 12:14:27 Morbid obesity 125490509 E66.01 Pre-surger y evaluation 778949300 Z01.818 Postoperative pain 13355 9007 G89.18 Essential hypertension 55550671 I10 Heartburn 24302390 R12 Continue current PPI therapy. History of sleeve gastrectomy 0101103878 26107 Z90.3 Hyperlipidemia 28364159 E78.5 Hypothyroidism 07669797 E03.9 Iron defic iency anemia 68804284 D50.9 [id number] Hilario Woods, DNP, SITE LEASING AGENT, STACKER STRAIGHTENER-C [facility] [address] [facility] [address] [place] [address] 05/08/2023 07:57:00 05/08/2023 09:41:43 History of bariatric surgical procedure 337727781 Z98.84 The patient is doing well. The [...] [facility] sure [...] plan and agree to comply. Essential hypertension 35086940 I10 History of sleeve gastrectomy 7110572833 01527 Z90.3 Hyperlipidemia 50580285 E78.5 Hypothyroidism 13113039 E03.9 Iron defic iency anemia 41528229 D50.9 Intentiona l weight loss 489553651 R63.8 Nausea 304098401 R11.0 [id number] Hilario Woods, LEVAR, SITE LEASING AGENT, STACKER STRAIGHTENER-C [facility] [address] [facility] [address] [place] [address] 06/04/2023 10:04:12 06/04/2023 10:37:37 History of bariatric surgical procedure 121626904 Z98.84 The patient is doing well. The [...] choose [facility] are to make sure [...] agree to comply. Intentiona l weight loss 975257178 R63.8 History of gastrectomy 066728342 Z90.3 Advised qid intake 50% protein 3086-9773 calories/d y less than 100 carbs/dy Patient is status post bariatric surgery and at increased risk for vitamin deficienci es and malnutriti on. Bariatric vitamin panel ordered today. Patient will be contacted to correct any vitamin deficienci es. Essential hypertension 40208257 I10 Hyperlipidemia 74437308 E78.5 Hypothyroidism 78958334 E03.9 Iron defic iency anemia 37367700 D50.9 Morbid obesity 834709693 E66.01 [id number] Hilario Woods, DNP, SITE LEASING AGENT, STACKER STRAIGHTENER-C [facility] [address] [facility] [address] [facility] [place] [address] 09/12/2023 13:39:31 09/12/2023 14:11:00 History of bariatric surgical procedure 462133576 Z98.84 The patient is doing well. The [...] choose [facility] are to make sure [...] agree to comply. Intentiona l weight loss 267602307 R63.8 History of gastrectomy 934376516 Z90.3 Advised qid intake 50% protein 4402-8234 calories/d y less than 100 carbs/dy Long discussion today of InBody results including PBF(percen t body fat) SMM (skeletal muscle mass) Visceral fat level level BMR Segmental Fat Analysis and Segmental Lean Analysis. Encouraged pt to take minimal calories as per BMR and to anticipate changes in SMM and PBF values not just total weight. Follow-up with Repeat [facility]NACY in 3mth suggested Patient is status post bariatric surgery and at increased risk for vitamin deficienci es and malnutriti on. Bariatric vitamin panel ordered today. Patient will be contacted to correct any vitamin deficienci es. Essential hypertension 78482312 I10 History of sleeve gastrectomy 5743461524 76164 Z90.3 Hyperlipidemia 94244468 E78.5 Hypothyroidism 51376034 E03.9 Iron defic iency anemia 94658613 D50.9 Morbid obesity 929094661 E66.01 [id number] Hilario Woods, DNP, SITE LEASING AGENT, STACKER STRAIGHTENER-C [facility] [address] [place] [address] 12/14/2023 08:59:51 12/14/2023 09:38:34 History of bariatric surgical procedure 777073852 Z98.84 The patient is doing well. The [...] choose [facility] they are to make sure [...] agree to comply. Intentiona l weight loss 140476423 R63.8 History of gastrectomy 969368054 Z90.3 Advised qid intake 50% protein 3626-9749 calories/d y less than 100 carbs/dyLo ng [...] correct any vitamin deficienci es. Essential hypertension 63741074 I10 Hyperlipidemia 05018300 E78.5 Hypothyroidism 82027594 E03.9 Iron defic iency anemia 61872184 D50.9 Morbid obesity 741948633 E66.01 Unintentio nal weight gain 1255889575 60455 R63.[id number], LD [facility] [address] [facility] [address] [facility] [place] [address] 01/02/2024 11:58:38 01/02/2024 14:46:03 Morbid obesity 298458448 E66.01 BMI 36.7 Wt loss 9# [facility] 555752252 Z71.3 [id number] Hilario Woods, DNP, SITE LEASING AGENT, STACKER STRAIGHTENER-C [facility] [address] [facility] [address] [facility] [place] [address] 03/31/2024 10:16:51 03/31/2024 11:18:28 History of bariatric surgical procedure 567043964 Z98.84 The patient is doing well. The [...] choose [facility] they are to make sure [...] agree to comply. Intentiona l weight loss 993461872 R63.8 History of gastrectomy 604158798 Z90.3 Advised qid intake 50% protein 2755-5114 calories/d y less than 100 carbs/dyLo ng [...] correct any vitamin deficienci es. Essential hypertension 95548968 I10 Hyperlipidemia 39689259 E78.5 Hypothyroidism 60766407 E03.9 Iron defic iency anemia 53931841 D50.9 Unintentio nal weight gain 2827859152 07314 R63.5 Morbid obesity 481563007 E66.01 [id number] Hilario Woods, DNP, SITE LEASING AGENT, STACKER STRAIGHTENER-C [facility] [address] [facility] [address] [facility] [place] [address] 04/14/2024 13:31:27 04/14/2024 15:48:01 History of bariatric surgical procedure 943253825 Z98.84 Intentiona l weight loss 077603055 R63.8 Essential hypertension 57924544 I10 Hyperlipidemia 99658003 E78.5 Hypothyroidism 59870170 E03.9 Iron defic iency anemia 26861522 D50.9 Vomiting 034249338 R11.1 0 Heartburn 99294557 R12 GERD-patie nt was reassured. We discussed [...] well as EGD with possible dilatation .. [id number] Hilario Woods, DNP, SITE LEASING AGENT, STACKER STRAIGHTENER-C [facility] [address] [facility] [place] [address] 08/18/2024 11:29:14 08/18/2024 12:37:20 History of bariatric surgical procedure 812149296 Z98.84 Intentiona l weight loss 058273764 R63.8 History of gastrectomy 472033053 Z90.3 Advised qid intake 50% protein 5139-7986 calories/d y less than 100 carbs/dyLo ng [...] to correct any vitamin deficienci es. At [facility] risk of nutritional deficit 145367247 Z91.89 Essential hypertension 24966062 I10 Hyperlipidemia 85736423 E78.5 Hypothyroidism 66371601 E03.9 Iron defic iency anemia 89715254 D50.9 Ulcer of anastomosis 447 307441 K26.9 told to notify if tablets are expensive Heartburn 52422657 R12 GERD-patie nt was reassured. We discussed [...] keep upcoming appt for UGI. Morbid obesity 166196686 E66.01 [id number] Hilario Woods, DNP, SITE LEASING AGENT, STACKER STRAIGHTENER-C [facility] [address] [facility] [place] [address] 11/17/2024 08:59:09 11/18/2024 10:46:44 History of bariatric surgical procedure 737689688 Z98.84 Intentiona l weight loss 937423437 R63.8 History of gastrectomy 761762759 Z90.3 Advised qid intake 50% protein 4176-7150 calories/d y less than 100 carbs/dyLo ng [...] to correct any vitamin deficienci es. At [facility] risk of nutritional deficit 714060551 Z91.89 Essential hypertension 54935327 I10 Hyperlipidemia 42716729 E78.5 Hypothyroidism 93617237 E03.9 Iron defic iency anemia 46560904 D50.9 History of sleeve gastrectomy 2151962124 45839 Z90.3 Morbid obesity 745356612 E66.01 Unintentio nal weight gain 3686966682 15307 R63.[id number] [facility] [address] [place], [place] [address] 11/17/2024 16:09:54 11/17/2024 16:15:57 Dietary management surveillance 772894064 Z71.3 [id number] Hilario Woods, DNP, SITE LEASING AGENT, STACKER STRAIGHTENER-C [facility] [address] [place] [address] 02/16/2025 07:58:17 02/16/2025 09:13:14 History of bariatric surgical procedure 887412911 Z98.84 Intentiona l weight loss 481564737 R63.8 History of gastrectomy 890644016 Z90.3 Advised qid intake 50% protein 1190-6582 calories/d y less than 100 carbs/dyLo ng [...] to correct any vitamin deficienci es. At [facility] risk of nutritional deficit 548225337 Z91.89 Essential hypertension 55441777 I10 Hyperlipidemia 55742462 E78.5 Hypothyroidism 72379018 E03.9 Iron defic iency anemia 17953883 D50.9 Heartburn 26878904 R12 GERD-patie nt was reassured. We discussed [...] appt for UGI. History of sleeve gastrectomy 7863363989 83497 Z90.3 Morbid obesity 587396178 E66.01 Unintentio nal weight gain 8376860485 78298 R63.5 Obstructiv e sleep apnea syndrome 83323008 G47.33 Pulmonary emphysema 8743 3001 J43.9 Asthma - c urrently active 847490652 J45.909 History of clinical finding in subject 846344125 Z87.891 Nodule of lung 234767680 R91.1 advised to keep all upcoming appt. Health Concerns Section Related Observation LastModified by Organization Detai ls LastModified Time None Recorded Concern Status LastModified by Organization Details LastModified Time None Recorded Advance Directives Directive None Recorded Payers Insurance Date Sequence Insurance Name Policy Number Policy Rojas Covered Member ID Rojas Member ID Guarantor Name 02/15/2025 1 [facility] (MEDICAID REPLACEMENT - HMO) CSKY Bushra Lundberg [id number] Bushra Lundberg 02/15/2025 1 [facility] (MEDICAID REPLACEMENT - HMO) [id number] Bushra Lundberg [id number] Bushra Lundberg Notes Date Note Type Note [...] issue eating a chili dog without the [place].Total Weight loss Since last office visit has been 9 lbsPt is happy with their quality of life after Weight loss Surgery. Hilario Woods, DNP, SITE LEASING AGENT, STACKER STRAIGHTENER-C [address], [place], [address], [facility] 04/14/2024 15:27:35 08/18/2024 text/html Patient presents the [...] now set up fro next week at [facility]. She could not afford carafate suspension. [...] Rate = 1425kilo calories Hilario Woods, DNP, SITE LEASING AGENT, STACKER STRAIGHTENER-C [address] , [place], [address], [facility] & [place] 08/18/2024 13:02:08 11/17/2024 text/html RDN met w/ [...] tests done. KATHERINE CID, RD [address], [place], [address], [place] - LPNT - [place] & [place] 11/17/2024 16:15:46 11/17/2024 text/html Patient presents the [...] She has been seeing Dr. Fernandez in [place] at [facility]. She has been stress eating . [...] scan performed roughly 2 weeks ago at [facility]. She tells me that a 10 [...] having an actual sleep study performed at [facility] [place] tomorrow night. Today's InBody reveals a skeletal muscle mass = 64.4 lb,body fat mass = 130.8 lb,BMI = 44.3Percent body fat = 52.4Basal Metabolic Rate = 1536 kilo calories Hilario Woods, DNP, SITE LEASING AGENT, STACKER STRAIGHTENER-C [address], [place], [address], [facility] [place] [facility] [place] 11/17/2024 09:42:51 02/16/2025 text/html Patient presents the [...] troesophageal reflux: yes (is food related, manasa Faroese)Pt Denies : abdominal pain, prandial issues Nausea, [...] she is to follow up with her physical integration practitioner in [address] scan. She is also seeing a hydraulic jack mechanic oncologist Dr. Raymond Bowen out of [facility]. She does not have a follow up [...] = 1509 kilo calories Hilario Woods, DNP, SITE LEASING AGENT, STACKER STRAIGHTENER-C [address] [facility], [place], [address], [facility] - [place] & [place] 02/16/2025 08:34:53 OBGyn Episode No OBEpisode recorded.
--- OUTSIDE RECORDS SUMMARY | 2025-03-23 08:47 | XMS_ITS | Encounter Summary ---
Author Organization [employer] ([place], [place], [place], [place]) Address [address] [place] [address] Care Team Providers Care Anglesmith Name Role Phone Unavailable Primary Care Provider Unavailabl e Encounter Details Date Type Department Care Team (Late st Contact Info) Description 04/06/2021 Transcribed Document [facility] [place] [facility] [place] [address] ProviderPat MD [address] [place] [address] Social History Tobacco Use Types [...] and water are not available, use hand clinical assistant professor. ? Change your dressing as told by [...] Managing pain, stiffness, and swelling ??? Take uboj-rzi-euxhnso and prescription medicines only as told by [...] keep your urine pale yellow. ? Take txwd-pfv-htxuygw or prescription medicines. ? Eat foods that [...] provider. Document Revised: 05/29/2019 Document Reviewed: 05/29/2019 [employer] Patient Education ? 2020 [employer] Pharmacology General Anesthesia, Adult, Care After [...] activities are safe for you. ??? Take fsaj-emc-whrvata and prescription medicines only as told by [...] provider. Document Revised: 09/06/2018 Document Reviewed: 04/19/2018 [employer] Patient Education ? 2020 [employer]. Electronically signed by Monroe Christopher Conversion Technology Applications Consultant Armen at 01/07/2023 7:37 PM CDT documented in this encounter Plan of Treatment Not on file documented as of this encounter Visit Diagnoses Not on filedocumented in this encounter
--- OUTSIDE RECORDS SUMMARY | 2025-03-23 08:47 | XMS_ITS | Encounter Summary ---
Author Organization [employer] ([place], [place], [place], [place]) Address [address] [place] [address] Care Team Providers Care Records Specialist Name Role Phone Unavailable Primary Care Provider Unavailabl e Encounter Details Date Type Department Care Team (Late st Contact Info) Description 10/06/2020 Transcribed Document [facility] [place] [facility] [place] [address] ProviderPat MD [address] [place] [address] Social History Tobacco Use Types [...] - Pat ProviderMD - 10/06/2020 4:28 PM PSYCHOLOGY CLINICIAN Patient Education Materials Follows: Outpatient Surgery, Adult, [...] and water are not available, use hand exercise instructor. ? Change your dressing as told by [...] or a bad smell. Medicines ??? Take nvdm-lwd-gsciqot and prescription medicines only as told by [...] 12/24/2016 Document Revised: 12/02/2018 Document Reviewed: 12/24/2016 [employer] Patient Education ? 2020 [employer]. Electronically signed by Monroe Christopher Conversion Avionics Systems Engineer Stacyner at 01/07/2023 7:33 PM CDT documented in this encounter Plan of Treatment Not on file documented as of this encounter Visit Diagnoses Not on filedocumented in this encounter
--- OUTSIDE RECORDS SUMMARY | 2025-03-23 08:47 | XMS_ITS | Data Portability ---
Author Organization MAURISIO PEMA Marte HIMROD CLOSED Address [address] [facility] [address] [place] [address] Care Team Providers Care Liquor Grinder Mill Operator Name Role Phone YAMILETH ZAVALETA Referring Provider [phone] ASHISH ATKINSON Primary Care Provider [phone] Assessment Encounter Date Assessment Date Assessment LastModified [...] with voice recognition technology and may include food and nutrition services assistant errors. Not available 03/07/2021 11:00:40 05/19/2021 05/19/2021 [...] visit with new AP lateral cervical x-ray [facility]. She says she still has [...] or 3 view [facility] [address] [facility] [address] Monicaclara jennie Name: BIA schneider : 01/20/19 [...] Edwin Stewart MD on 01/21/20 8:51 AM [facility] Radiology [facility] [address] [place] [address], [phone], 01/24/2021 17:29:17 02/01/20 21 01/31/2021 MRI, cervi sharon spine , w/wo contr ast [address] [place] [address] Karlee t Name: BIA Desir t : [birth year] 67 Paticlara t Orderi ng Provid er: PUJA Chantal PAPITO EXAM DATE: 2020 EXAM: MR CERVIC AL W/WO CONTRA ST HISTOR Y: 56-yea r-old female with right arm pain and tingli ng and prior cervic al fusion . COMPAR AINBAL: Radiog raph dated 01/21/20. The patien t [...] ality is identi fied. The visual ized vegetable farmworker ior fossa of the brain is normal [...] strati on of [address] ([facility] [address] 0325-0 2), there is no abnorm al [...] Cherelle silveira MD on 021 11:05 AM [facility] Radiology [facility] [address] [place], [address], 02/01/2021 16:34:20 03/01/20 21 03/01/2021 nerve condu ction study /EMG, upper extre mity (PROC ) No observ ation record ed. [facility] S[facility] [address] [place], [address], 03/28/2021 17:43:06 04/06/20 21 04/06/2021 fluor oscop y (PROC ) No observ ation record ed. [email or web address] [facility] Scheduling [address] [facility] , [place], [address], 04/08/2021 14:25:37 05/19/20 21 05/19/2021 XR, cervi sharon spine , 2 or [facility] [address] [place] [address] Paticlara t Name: BIA Schneider Paticlara t [...] Edwin Stewart MD on 05/19/20 1:30 PM [facility] Radiology [facility] [address] [place] [address], [phone], 05/19/2021 18:02:04 08/18/20 21 08/18/2021 XR, cervi sharon spine , 2 or [address] [address] Paticlara t Name: BIA schneider : 01/[birth year] 67 Paticlara t Orderi ng Provid er: BHARTI MELISSA EXAM [...] Kimberly Langford MD on 021 3:54 PM [facility] Radiology [address], [address], 08/19/2021 09:21:43 Result Notes Documentation Provider Name and Address Organization Details Recorded Time Xr, Cervical Spine, 2 Or 3 View : [address] [address] Patient Name: MELANIE LUNDBERG Patient : 1965 Patient Ordering Provider: MARION MELENDEZ EXAM DATE: 2021 EXAM: XR CERVICAL AP/LAT CLINICAL INFORMATION: Neck pain IMAGES PROVIDED: AP, lateral, open mouth and submental views of the cervical spine COMPARISON: 11/18/2020 FINDINGS: Previous C4-C6 anterior fixation and interbody fusion. No hardware competition. No loosening is noted. Alignment within normal limits. There is at least moderate DDD at C6-7. No prevertebral soft tissue swelling. No radiographic evidence of injury is seen. IMPRESSION: Stable uncomplicated appearing C4-6 fusion Interpreted By: Edwin Stewart MD ON MELENDEZ MD [address] [place] [address], [phone], [facility] 01/24/2021 10:41:27 Mri, Cervical Spine, W/wo Contrast : [facility] [address] [place] [address] Patient Name: MELANIE LUNDBERG Patient : 1965 Patient Ordering Provider: MARION MELENDEZ EXAM DATE: 01/31/2021 EXAM: MR CERVICAL W/WO CONTRAST HISTORY: 56-year-old female with right arm pain and tingling and prior cervical fusion. COMPARISON: Radiograph dated 2021. The patient did not require sedation for this exam. FINDINGS: The patient is status post discectomy and anterior fusion from C4 through C6. There is paramagnetic artifact from the anterior fusion plate and screws. There is no evidence of complication. The cervical spine is normal in alignment. There is no subluxation. There is no fracture or pathologic intraosseous lesion. There is mild anterior marginal osteophytic spurring. No paraspinous soft tissue abnormality is identified. The visualized posterior fossa of the brain is normal in appearance. There is focally increased signal in the spinal cord at C5-C6 which may represent myelomalacia. The craniocervical junction is normal in appearance. There are mild degenerative changes at C1-C2. C2-C3: There is no disc abnormality. There is no central canal stenosis. There is no neural foraminal stenosis. C3-C4: There is left greater than right uncovertebral spurring with an associated disc/osteophyte complex. There is no central canal stenosis. There is mild left neural foraminal narrowing. C4-C5: There is prior fusion with right greater than left uncovertebral spurring. There is no central canal stenosis. There is moderate right neural foraminal narrowing. C5-C6: There is prior fusion with residual uncovertebral spurring. There is mild central canal stenosis. There is severe bilateral neural foraminal stenosis. C6-C7: There is a diffuse disc/osteophyte complex. There is mild central canal stenosis. There is moderate bilateral neural foraminal stenosis. C7-T1: There is a diffuse disc/osteophyte complex. There is no central canal narrowing. There is moderate/severe bilateral neural foraminal narrowing. After intravenous administration of 10 mL Gadavist ([facility] [address]-55), there is no abnormal enhancement in the cervical spine. There are mild degenerative changes in the upper thoracic spine. IMPRESSION: 1. The patient is status post anterior fusion from C4 through C6. There is increased signal in the spinal cord at C5-C6 consistent with focal myelomalacia. 2. There is mild central canal narrowing at C5-C6 and C6-C7. 3. There is moderate to severe bilateral neural foraminal narrowing from C5-C6 through C7-T1, and moderate right neural foraminal narrowing at C4-C5. Interpreted By: Foster August MD O MELISSA PA-C [address] [place] [address], [phone], [facility] 02/01/2021 16:34:20 Xr, Cervical Spine, 2 Or 3 View : [address] [address] Patient Name: MELANIE LUNDBERG Patient : 1965 Patient Ordering Provider: MARION MELENDEZ EXAM DATE: 05/19/2021 EXAM: XR CERVICAL AP/LAT CLINICAL INFORMATION: Neck pain IMAGES PROVIDED: AP, lateral, open mouth and submental views of the cervical spine COMPARISON: 2021 FINDINGS: The patient has anterior fusion extending from C4 to C7. No complications are visible. No hardware fracture or loosening. No prevertebral soft tissue swelling. The alignment is except table. No radiographic evidence of injury is seen. IMPRESSION: Uncomplicated appearing C4-7 fusion Interpreted By: Edwin Stewart MD ON MELENDEZ MD [address] [place] [address], [phone], [facility] 05/19/2021 13:49:12 Xr, Cervical Spine, 2 Or 3 View : [address] [address] Patient Name: MELANIE LUNDBERG Patient : 1965 Patient Ordering Provider: CHOCO MELISSA EXAM DATE: 08/18/2021 EXAM: XR CERVICAL AP/LAT CLINICAL INFORMATION: Postoperative. IMAGES PROVIDED: AP, and lateral views of the cervical spine. COMPARISON: None. FINDINGS AND IMPRESSION: Anterior spinal fusion is noted at C4-C7 level with compression plate and screws. Surgical hardware is satisfactorily placed. No evidence of loosening or infection is seen. Other levels are normal. Interpreted By: Kurtis Langford MD O MELISSA PA-C [address] [place] [address], [phone] 08/18/2021 17:11:30 Procedures Surgical History Date Name Laterality Status Provider Name and Address Organization Details Recorded Time 021 ANTERIOR CERVICAL DISCECTOMY AND FUSION, LEVEL SPECIFIED, WITH HARDWARE (SURG) completed Candy Melendrez [facility] 04/11/2021 16:27:57 021 Electromyography (EMG) with Nerve Conduction Study (NCV) completed Yari Payan (Nicky) [facility] 03/01/2021 10:44:38 021 ANTERIOR CERVICAL DISCECTOMY AND FUSION, LEVEL SPECIFIED, WITH HARDWARE (SURG) completed [facility] 10/22/2020 08:13:57 021 ANTERIOR CERVICAL DISCECTOMY AND FUSION, LEVEL SPECIFIED, WITH HARDWARE (SURG) completed [facility] 11/05/2020 16:07:08 laparoscopic sleeve gastrectomy completed [facility] 09/27/2020 09:27:30 [facility] 09:27:42 Imaging Results None recorded. [...] Updated DateTime 2021 160.02 cm 40.7 kg/m2 594591.25 g 142/80 mm[Hg] [facility] 2021 09:31:14 Date Recorded Body height Provider Name an d Address Organization Details Last Updated DateTime 05/19/2021 160.02 cm Nery Carranza [facility] 10/2020 14:11:54 Date Recorded Body height Body mass index (BMI) Body weight Systolic And Diastolic Provider Name and Address Organization Details Last Updated DateTime 08/18/2021 160.02 cm 40.7 kg/m2 271494.25 g 130/82 mm[Hg] [facility] 08/18/2021 10:48:59 Social History None recorded. Functional Status [...] SNOMED-CT Code Diagnosis ICD10 Code Diagnosis Note [id number] MARION MELENDEZ MD [facility]OS[facility]G [facility] [address] [facility] [address] [place] [address] 09/27/2020 08:28:55 09/27/2020 10:49:12 Cervical spondylosis with myelopathy 80543442 M47.12 [id number] MARION MELENDEZ MD SURGERY SCHEDULE [address] [place] [address] 10/12/2020 09:31:36 10/12/2020 11:21:55 [id number] HEBERT GAMBOA PA-C NEUROSURG [facility] [address] [place] [address] 0 11/18/2020 10:05:27 11/23/2020 13:03:13 [id number] CHOCO MELISSA PA-C NEUROSURG [facility] [address] [place] [address] 0 2021 09:02:56 01/21/2021 15:06:30 Cervical radiculopathy 13503814 M54.12 [id number] KRISTI BRASWELL MD NEUROLOGY [facility] CLOSED [address] [place] [address] 03/01/2021 08:58:19 03/01/2021 10:50:27 Cervical radiculopathy 62906334 M54.12 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 [id number] 91993 G56.01 [id number] MARION MELENDEZ MD SURGERY SCHEDULE [address] [place] [address] 04/14/2021 08:40:55 04/14/2021 13:24:31 [id number] MARION MELENDEZ MD NEUROSURG [facility] [address] [place] [address] 0 05/19/2021 13:30:28 05/20/2021 16:10:58 Postoperative care [id number] Z48.89 [id number] CHOCO MELISSA PA-C NEUROSURG [facility] [address] [place] [address] 0 08/18/2021 10:28:01 08/19/2021 09:17:33 Postoperative visit [id number] Z09 Health Concerns Section Related Observation LastModified by Organization Detai ls LastModified Time None Recorded Concern Status LastModified by Organization Details LastModified Time None Recorded Advance Directives Directive None Recorded Payers Insurance Date Sequence Insurance Name Policy Number Policy Rojas Covered Member ID Rojas Member ID Guarantor Name 05/15/[address] [facility] (MEDICAID REPLACEMENT - HMO) [id number] Melanie Lundberg [id number] Melanie Lundberg 08/17/2021 1 [facility] (MEDICAID REPLACEMENT - O) Melanie Lundberg [id number] Melanie Lundberg Notes Date Note Type Note Provider [...] all of her fingers. CHOCO MELISSA PA-C [address] [place] [address], [phone], [facility] 03/07/2021 11:00:45 05/19/2021 text/html Mrs. Lundberg is [...] postoperative visit with x-rays. MARION MELENDEZ MD [address] [place] [address], [phone], [facility] 05/19/2021 14:53:03 08/18/2021 text/html Ms. Lundberg is a 56-year-old female with history of C4-6 ACDF on 10/06/[address] Melendez him a C6-7 extension on 04/06/21, last seen here in 05/19/21, here for recheck and second postop visit with new AP lateral cervical x-ray [facility]. She says she still has [...] stimulator trial soon. CHOCO MELISSA PA-C [address] [place], [address], [facility] 08/18/2021 11:30:25 OBGyn Episode No OBEpisode recorded.
--- OUTSIDE RECORDS SUMMARY | 2025-03-23 08:47 | XMS_ITS | Encounter Summary ---
Author Organization [employer] ([place], [place], [place], [place]) Address [address] [place] [address] Care Team Providers Care Kerfer Machine Operator Name Role Phone Unavailable Primary Care Provider Unavailabl e Encounter Details Date Type Department Care Team (Late st Contact Info) Description 04/06/2021 Transcribed Document [facility] [place] [address] ProviderPat MD [address] [place] [address] Social History Tobacco Use Types [...] Pat ProviderMD - 04/06/2021 11:42 AM CDT [facility] Main OR PostOp Summary Primary Physician: MARION COBOS MD-SNU Finalized Date/Time: 04/07/21 13:01:30 Pt. Name: BUSHRA LUNDBERG D.O.B./Sex: 1965 Female Med Rec #: [id number] Physician: MARION COBOS MD-SNU Financial #: [id number] Pt. Type: O Room/Bed: ASA/3 Admit/Disch: 04/06/21 06:47:00 - 04/06/21 15:30:00 Institution: [facility] Main OR PostOp Case Times Entry 1 [...] 13:01 TOMAS Correct Billing Electronically signed by Preet Christopher Conversion Geographic Area Intelligence Officer Cerner at 01/07/2023 7:36 PM CDT documented in this encounter Plan of Treatment Not on file documented as of this encounter Visit Diagnoses Not on filedocumented in this encounter
--- OUTSIDE RECORDS SUMMARY | 2025-03-23 08:47 | XMS_ITS | Encounter Summary ---
Author Organization [employer] ([place], [place], [place], [place]) Address [address] [place] [address] Care Team Providers Care Social Media Content Manager Name Role Phone Unavailable Primary Care Provider Unavailabl e Encounter Details Date Type Department Care Team (Late st Contact Info) Description 04/06/2021 Transcribed Document [facility] [address] [place] [address] ProviderPat MD [address] [place] [address] Social History Tobacco Use Types [...] Pat ProviderMD - 04/06/2021 2:[address] [facility] [place] [address] BUSHRA ABDI :1965 Visit Time:04/06/2021 [...] spine. Follow-Up Appointments Follow Up with MARION CBOOS MD-SNU When Within 2 to 3 days Comments Follow-up appointment at 9:15am Where: [address] (SUNDAY ONLY) [place] [address]- Medications What How Much When Instructions Next [...] activities are safe for you. ??? Take tpsl-flz-fkhtkhm and prescription medicines only as told by [...] provider. Document Revised: 09/06/2018 Document Reviewed: 04/19/2018 [employer] Patient Education ?? 2020 [employer] Anterior Cervical Diskectomy and Fusion, Care [...] and water are not available, use hand director of technology. ? Change your dressing as told by [...] Managing pain, stiffness, and swelling ??? Take ixhu-uah-fltzjkq and prescription medicines only as told by [...] keep your urine pale yellow. ? Take gaoc-ijq-lrfmypl or prescription medicines. ? Eat foods that [...] provider. Document Revised: 05/29/2019 Document Reviewed: 05/29/2019 [employer] Patient Education ?? 2020 [employer]. Emergency Awareness and Preventative Care STROKE is [...] Assistance with quitting is available by contacting 0-400-LESN-NOW. This is a free resource providing counseling, [...] ) Urine Bilirubin Dipstick: Negative Urine Specific [place]: 1.012 -- Normal range between ( 1.005 [...] was given the opportunity to ask questions. Patient/Fitting Room Inspector Name: Patient/Fitting Room Inspector Signature: Relationship to Patient: Clinician/Hospital Fitting Room Inspector Signature: Date: Electronically signed by Interface, [facility] Conversion Director Of Instruction Armen at 01/07/2023 7:35 PM CDT documented in this encounter Plan of Treatment Not on file documented as of this encounter Visit Diagnoses Not on filedocumented in this encounter
--- OUTSIDE RECORDS SUMMARY | 2025-03-23 08:47 | XMS_ITS | Referral Summary ---
Author Organization [employer] ([place], [place], [place], [place]) Address [address] [place] [address] Care Team Providers Care Retail Merchandising Specialist Name Role Phone Unavailable Primary Care [...]
--- OUTSIDE RECORDS SUMMARY | 2025-03-23 08:47 | XMS_ITS | Encounter Summary ---
Author Organization [employer] ([place], [place], [place], [place]) Address [address] [place] [address] Care Team Providers Care Assistant Professor Of Art Name Role Phone Unavailable Primary Care Provider Unavailabl e Encounter Details Date Type Department Care Team (Late st Contact Info) Description 04/06/2021 Transcribed Document [facility] Neurology - [address] [facility] [address] [place] [address] Srinivas Melendez MD [address] [place] [address] Social History Tobacco Use Types [...] diskectomy and fusion. 2. Replating from C4-C7. ADJUNCT LECTURER: [place] Suero. TYPE OF ANESTHESIA: GEA. DESCRIPTION [...] the distraction pins were. A 48 mm [place] plate was then affixed to the anterior [...] LOSS: 50 mL. DRAINS: None. COMPLICATIONS: None. /[id number] MD BEN Rodrigez/RIGOBERTO / MPT / MODL /[id number] CC: Leeann Johnson documented in this encounter Plan of Treatment Not on file documented as of this encounter Visit Diagnoses Not on filedocumented in this encounter
--- OUTSIDE RECORDS SUMMARY | 2025-03-23 08:47 | XMS_ITS | Encounter Summary ---
Author Organization [employer] ([place], [place], [place], [place]) Address [address] [place] [address] Care Team Providers Care Train Brakeman Name Role Phone Unavailable Primary Care Provider Unavailabl e Encounter Details Date Type Department Care Team (Late st Contact Info) Description 04/06/2021 Transcribed Document [facility] [place] Family Medicine [facility] [place] [address] ProviderPat MD [address] [place] [address] Social History Tobacco Use Types [...] Pat ProviderMD - 04/06/2021 11:42 AM CDT [facility] Main OR IntraOp Summary Primary Physician: MARION COBOS MD-SNU Finalized Date/Time: 04/07/21 13:03:57 Pt. Name: MELANIE LUNDBERG D.O.B./Sex: 1965 Female Med Rec #: [id number] Physician: MARION COBOS MD-SNU Financial #: [id number] Pt. Type: O Room/Bed: ASA/3 Admit/Disch: 04/06/21 06:47:00 - 04/06/21 15:30:00 Institution: [facility] IntraOp Case Attendance Entry 1 Entry 2 Entry 3 Case Attendee MARION COBOS WASSON, SANDRA D RN NELSON NGUYEN, MADELEINE NEGRETE-SNU TECH Role Performed Surgeon/Proceduralist, Packing Shed Supervisor, First Scrub, First First Time In 04/06/21 [...] D, VITO MERLOS MD-ANS Role Performed Physician sales office assistant OSTEOPATHY DOCTOR/Nurse Tube Machine Operator Anesthesiologist of Record Time In 04/06/21 11:15:00 [...] ATTENDEE #1 Hema Schreiber, Robyn Sales, Diagnostic On Awake Counselor Role Performed Vendor Scrub, Second Corporate Representative Time In 04/06/21 11:15:00 04/06/21 11:15:00 04/06/21 [...] Lydia Cordero, Rn Role Performed Scrub, First Packing Shed Supervisor, First Time In 04/06/21 11:57:00 04/06/21 12:00:00 Time Out 04/06/21 13:04:00 04/06/21 13:04:00 Procedure Cervical Discectomy Cervical Discectomy Fusion Anterior Fusion Anterior Other Attendee LUNCH RELIEF LUNCH Superficial Wound Closed By: Last Modified By: CLARK JAUREGUI RN WASSON, SANDRA D, RN 04/06/21 13:03:22 04/06/21 13:03:22 [facility] IntraOp Case Attendance Audit 04/06/21 13:03:22 Acrobatic Dancer: WASSONSY Modifier: WASSONSY 1 <+> Time Out [...] Procedure Cervical Discectomy Fusion Anterior 04/06/21 12:05:52 Acrobatic Dancer: WASSONSY Modifier: WASSONSY <+> 11 Case Attendee <+> 11 Role Performed <+> 11 Time In <+> 11 Procedure <+> 11 Other Attendee 04/06/21 11:57:37 Acrobatic Dancer: WASSONSY Modifier: WASSONSY <+> 10 Case Attendee <+> 10 Role Performed <+> 10 Time In <+> 10 Procedure <+> 10 Other Attendee 04/06/21 11:57:14 Acrobatic Dancer: WASSONSY Modifier: WASSONSY 1 <*> Procedure Cervical [...] Procedure Cervical Discectomy Fusion Anterior 04/06/21 11:53:13 Acrobatic Dancer: WASSONSY Modifier: WASSONSY 1 <*> Procedure Cervical [...] Role Performed <+> 9 Procedure 04/06/21 11:48:20 Acrobatic Dancer: WASSONSY Modifier: WASSONSY <+> 8 Case Attendee <+> 8 Role Performed <+> 8 Time Out <+> 8 Procedure 04/06/21 11:47:37 Acrobatic Dancer: WASSONSY Modifier: WASSONSY 1 <+> Time In [...] Anterior 7 <*> Other Attendee BRANDYN RICHARDSON [facility] IntraOp Case Times Entry 1 Patient In Room Time 04/06/21 11:15:00 Out Room Time 04/06/21 13:04:00 Anesthesia Start Time 04/06/21 11:15:00 Stop Time 04/06/21 13:04:00 Surgery / Procedure Times Start Time 04/06/21 11:42:00 Stop Time 04/06/21 12:57:00 Last Modified By: CLARK JAUREGUI RN 04/06/21 13:03:11 [facility] IntraOp Case Times Audit 04/06/21 13:03:11 Acrobatic Dancer: HANG Modifier: WASSONSY <+> 1 Out Room Time <+> 1 Stop Time <+> 1 Stop Time 04/06/21 11:46:55 Acrobatic Dancer: HANG Modifier: WASSONSY <+> 1 Start Time [facility] IntraOp Cautery Entry 1 Entry 2 ESU Identification Cautery Type Monopolar ESU BiPolar ESU Cautery Type Comments ID Number [id number] ID Type Hospital Number Hospital Number Cautery [...] CLARK JAUREGUI RN 04/06/21 11:49:21 04/06/21 11:50:42 [facility] IntraOp Cautery Audit 04/06/21 11:50:42 Acrobatic Dancer: HANG Modifier: JUVENTINOSY 2 <*> ID Number [id number] [facility] IntraOp Communication Entry 1 Communication To Family/Significant other Comment START Communication By CLARK JAUREGUI RN Date and Time 04/06/21 11:46:00 Last Modified By: CLARK JAUREGUI RN 04/06/21 11:47:05 [facility] IntraOp Counts Verification Entry 1 Procedure Cervical Discectomy Fusion Anterior Count Info Count Type Sponge, Sharps, Miscellaneous Counts Verification Baseline/pre-procedure Sequence Count Results Not Applicable Counts Performed By Count Performed By Hema Schreiber, SARAH (Scrub) Count Performed By CLARK JAUREGUI RN (RN) Last Modified By: CLARK JAUREGUI RN 04/06/21 11:48:27 [facility] IntraOp Counts Verification Audit 04/06/21 11:48:27 Acrobatic Dancer: WASSONSY Modifier: WASSONSY 1 <*> Procedure Cervical Discectomy Fusion Anterior 1 <+> Count Performed By (Scrub) [facility] IntraOp Counts Final Entry 1 Procedure Cervical Discectomy Fusion Anterior Final Count Info Count Type Sponge, Sharps, Miscellaneous Counts Verification Skin Closure/end of Sequence procedure Count Results Correct, surgeon notified Counts Performed By Count Performed By Hema Schreiber CST (Scrub) Count Performed By CLARK JAUREGUI, RN (RN) Last Modified By: CLARK JAUREGUI RN 04/06/21 12:49:55 [facility] IntraOp Counts Final Audit 04/06/21 12:49:55 Acrobatic Dancer: WASSONSY Modifier: WASSONSY 1 <*> Procedure Cervical Discectomy Fusion Anterior 1 <+> Count Performed By (Scrub) 1 <+> Count Performed By (RN) [facility] IntraOp Cultures and Spec Summary Entry 1 Cultrures and Specimens Specimen Ordered: Yes Test(s) Routine/Path-Lab Requested/Final Disposition Last Modified By: CLARK JAUREGUI RN 04/06/21 11:47:49 General Comments: A. EXPLANTED HARDWARE [facility] IntraOp Departure from OR Entry 1 Integumentary Assessment Integumentary WDL Assessment WDL Transfer/Handoff Transfer to PACU Phase I Handoff Method Phone call Post-op Transport Stretcher/Gurney Via Patient Transport LEANNE RUIZ, NA, Accompanied by HEBERT GAMBOA Last Modified By: CLARK JAUREGUI RN 04/06/21 12:06:34 [facility] IntraOp Departure from OR Audit 04/06/21 12:06:34 Acrobatic Dancer: HANG Modifier: WASSONSY <+> 1 Patient Transport Accompanied by [facility] IntraOp Dressing and Packing Entry 1 Type Dressing Location NECK Wound Dressing Item [place] Applied By HEBERT GAMBOA Other Comments OINTMENT, COVADERM Last Modified By: CLARK JAUREGUI RN 04/06/21 12:07:25 [facility] IntraOp Fire Risk Assessment Entry 1 Fire Info Surgical Site or 1- Yes Incision Above the Xyphoid Open O2 Source 0- No (Mask or Cannula) Available Ignition 1- Yes (ESU, Laser, Light Source) Fire Risk 2 Assessment Score Fire Score Fire Risk Yes Assessment Complete Fire Risk CLARK JAUREGUI, aerial photograph interpreter Verified By Fire Risk 04/06/21 11:14:00 Assessment Verified Date/Time Fire Risk Standard Fire Yes Safety Precautions Followed Last Modified By: CLARK JAUREGUI RN 04/06/21 11:50:47 [facility] IntraOp Fire Risk Assessment Audit 04/06/21 11:50:47 Acrobatic Dancer: HANG Modifier: WASSONSY <+> 1 Fire Risk Assessment Verified By [facility] IntraOp General Case Steel Tier 1 Case Information OR OR 11 [facility] Case Level 1 Room Verified Yes Wound Class I - Clean Specialty Neurosurgery Anesthesia Type General ASA Class 3 Diagnosis Preop Diagnosis CERVICAL RADICULOPATHY Postop Same As Preop No Postop Diagnosis SEE MD POST OP NOTE Last Modified By: CLARK JAUREGUI RN 04/06/21 11:49:40 [facility] IntraOp General Case Data Audit 04/06/21 11:49:40 Acrobatic Dancer: HANG Modifier: WASSONSY 1 <*> OR OR 09 [facility] 1 <+> ASA Class 1 <+> Room Verified [facility] IntraOp Implant Log Entry 1 Entry 2 Entry 3 Type Tissue Implant Implant (Synthetic) Implant (Synthetic) (Biologic) Implant Log Implant Type Hardware Hardware Tissue Implant Type Bone Implant BONE VIVIGEN FORMABLE CAGE EIT CIF H 6MM 8DEG PLT ANT SKYLN HYBRD Identification [id number] Description Implant Quantity 1 1 1 Implant Site CERIVAL CERVICAL SPINE OP SITE Implant Identification Model Number Implant [id number] Identification Serial Number Implant [id number] Identification Lot Number Implant Lifenet:Lifenet J&J:Depuy:Depuy Spine J&J:Depuy:Depuy Spine Identification Transplant Srv Tellers Supervisor Name: Implant [id number] [id number] Identification Catalog Number Implant Size Implant Has an Yes Yes Expiration Date Implant Expiration 02/23/22 02/14/25 Date Wasted Radioactive Material Time Implanted Tissue Implant Continue for Tissue Implant Documentation Tissue Identification Number Graft Prep Per Yes Tellers Supervisor Instructions: Tissue Preparation Thawed Method: Reconstitution Solution: Reconstitution Solution Lot Number Reconstitution Solution Expiration Date: Thawing Solution NACL Thawing Solution [id number] Lot Number Thawing Solution 12/16/22 Expiration Date Preparation Materials, Other Preparation Materials, Other Lot Number Preparation Materials, Other Expiration Date Tissue Hema Schreiber, SARAH Prepared/Processed By Tellers Supervisor Yes Paperwork Completed Implant Type Comment Last Modified By: CLARK JAUREGUI RN WASSON, SANDRA D, RN WASSON, SANDRA D, RN 04/06/21 12:38:32 04/06/21 12:38:32 04/06/21 12:49:39 Entry 4 Entry 5 Type Implant (Synthetic) Implant (Synthetic) Implant Log Implant Type Hardware Hardware Tissue Implant Type Implant SCR SKYLN VARI-OVSZ SCR SKYLN VARI SD Identification [id number] Description Implant Quantity 6 2 Implant Site OP SITE OP SITE Implant Identification Model Number Implant Identification Serial Number Implant Identification Lot Number Implant J&J:Depuy:Depuy Spine J&J:Depuy:Depuy Spine Identification Tellers Supervisor Name: Implant [id number] [id number] Identification Catalog Number Implant Size Implant Has an Expiration Date Implant Expiration Date Wasted Radioactive Material Time Implanted Tissue Implant Continue for Tissue Implant Documentation Tissue Identification Number Graft Prep Per Tellers Supervisor Instructions: Tissue Preparation Method: Reconstitution Solution: Reconstitution Solution Lot Number Reconstitution Solution Expiration Date: Thawing Solution Thawing Solution Lot Number Thawing Solution Expiration Date Preparation Materials, Other Preparation Materials, Other Lot Number Preparation Materials, Other Expiration Date Tissue Prepared/Processed By Tellers Supervisor Paperwork Completed Implant Type Comment Last Modified By: CLARK AJUREGUI RN WASSON, SANDRA D, RN 04/06/21 12:49:39 04/06/21 12:49:39 [facility] IntraOp Implant Log Audit 04/06/21 12:49:39 Acrobatic Dancer: HANG Modifier: JENNIFERTONYROSALIA <+> 3 Implant Identification Description <+> 3 Implant Identification Tellers Supervisor Name: <+> 3 Implant Site <+> 3 Implant Quantity <+> 3 Implant Identification Catalog Number <+> 3 Implant Type <+> 3 Type <+> 4 Implant Identification Description <+> 4 Implant Identification Tellers Supervisor Name: <+> 4 Implant Site <+> 4 Implant Quantity <+> 4 Implant Identification Catalog Number <+> 4 Implant Type <+> 4 Type <+> 5 Implant Identification Description <+> 5 Implant Identification Tellers Supervisor Name: <+> 5 Implant Site <+> 5 Implant Quantity <+> 5 Implant Identification Catalog Number <+> 5 Implant Type <+> 5 Type [facility] IntraOp Intraoperative Assessment Entry 1 Handoff Method [...] Modified By: CLARK JAUREGUI RN 04/06/21 11:49:53 [facility] IntraOp Intraoperative Equipment Entry 1 Type Equipment Equipment Equipment Kg Suction System ID Number [id number] Setting 160 MM HG Intraop Monitoring Electrocardiogram Five lead placement (ECG) Electrode Placement Blood Pressure Non-Invasive BP Device Source Blood Pressure Arm, left upper Location Pulse Oximeter Hand, right Probe Site Antiembolic Devices Antiembolic Devices Sequential compression device, knee high Antiembolic Device Bilateral Location Antiembolic Device [id number] ID Number Scopes Photo/Video Documentation Photo No Video No Last Modified By: CLARK JAUREGUI RN 04/06/21 11:50:32 [facility] IntraOp Medication Admin Entry 1 Entry 2 Entry 3 Medication/Irrigant lidocaine 1% w/ SPNG SURGFOAM thrombin 5000units epinephrine 1:100,000 [id number] topical powder - 30ml vial - [id number] Combo Med List Time Administered Route of [...] Entry 4 Medication/Irrigant vancomycin 1Gm vial - [id number] Combo Med List Time Administered Route of ADDED TO NS IRRIGATIION Administration Dose Dose 1 Unit of Measure gram Volume Administered By MARION COBOS MD-SNRaquel Procedure Irrigation Irrigant Volume In Irrigant Volume Out Last Modified By: CLARK JAUREGUI RN 04/06/21 11:55:23 [facility] IntraOp Patient Positioning Entry 1 Procedure Cervical [...] Modified By: CLARK JAUREGUI RN 04/06/21 11:52:27 [facility] IntraOp Sign In Entry 1 Patient, Site, [...] Modified By: CLARK JAUREGUI RN 04/06/21 11:55:41 [facility] IntraOp Sign Out Entry 1 RN Confirmation [...] CLARK JAUREGUI RN Signature RN Sign Out 04/06/21 13:04:00 [...] Modified By: CLARK JAUREGUI RN 04/06/21 13:03:21 [facility] IntraOp Sign Out Audit 04/06/21 13:03:21 Acrobatic Dancer: HANG Irizarry: JUVENTINOSY <+> 1 RN Sign Out Signature Date/Time [facility] IntraOp Skin Prep Entry 1 Procedure Cervical Discectomy Fusion Anterior Prescribed Yes Pre-Surgical Prep Completed Prep Area OP SITE AFTER ALCOHOL AND HIBICLENS PREP PER DR PAPITO Intraop Prep Integumentary WDL Assessment WDL Prep Agents Alcohol, Chlorhexadine gluconate, DuraPrep Prep by CLARK JAUREGUI, RN Hair Removal Methods No hair removal performed Last Modified By: CLARK JAUREGUI RN 04/06/21 11:52:57 [facility] IntraOp Surgical Procedures Entry 1 Procedure Cervical Discectomy Fusion Anterior Additional (C6-7 ACDF WITH Procedure REVISION OF C4-6 Description HARDWARE) Primary Procedure Yes Primary Surgeon MARION COBOS MD-SNU Start 04/06/21 11:42:00 Stop 04/06/21 12:57:00 Anesthesia Type General Specialty Neurosurgery Wound Class I - Clean Last Modified By: CLARK JAUREGUI RN 04/06/21 13:03:14 General Comments: ANCEF 2 GRAM IV PER ANESTHESIA [facility] IntraOp Surgical Procedures Audit 04/06/21 13:03:14 Acrobatic Dancer: HANG Modifier: WASSONSY 1 <*> Stop 1 <*> Stop [facility] IntraOP Time Out Entry 1 Procedure to [...] Modified By: CLARK JAUREGUI RN 04/06/21 11:44:18 [facility] IntraOp X-Ray and Images Entry 1 X-Ray/Imaging Type Fluoroscopy Fluoroscopy Type C-Arm Site OP SITE Grocery Buyer Name Robyn Kumar, Diagnostic On Awake Counselor Last Modified By: CLARK JAUREGUI RN 04/06/21 [...]
--- OUTSIDE RECORDS SUMMARY | 2025-03-23 08:47 | XMS_ITS | Encounter Summary ---
Author Organization [employer] ([place], [place], [place], [place]) Address [address] [place] [address] Care Team Providers Care Trial Court Judge Name Role Phone Unavailable Primary Care Provider Unavailabl e Encounter Details Date Type Department Care Team (Late st Contact Info) Description 04/06/2021 Transcribed Document [facility] [place] [facility] [place] [address] ProviderPat MD [address] [place] [address] Social History Tobacco Use Types [...] Ministry Provided to : Patient, Family/Significant other Gnosticist Preference : [employer]ism ([employer] [place]) ARMIN LAL - 04/06/2021 11:16 EDT Interventions Emotional Support : Empathic/Engaged listening, Family/Significant other supported, Feelings expressed Spiritual and Gnosticist : Prayer shared, Spiritual/Gnosticist support provided Change, Adjustment and Loss : Relationships/Community/Support system discussed ARMIN LAL 04/06/2021 11:16 EDT Outcomes Affect/Behavior Changed : Comforted Appreciation Expressed : Yes Thoughts, Feelings and Emotions Exp. : Yes Supportive Relationships Described : Family, Latter Day family HEAD, ARMIN - 04/06/2021 11:16 EDT documented in this encounter Plan of Treatment Not on file documented as of this encounter Visit Diagnoses Not on filedocumented in this encounter
--- OUTSIDE RECORDS SUMMARY | 2025-03-23 08:47 | XMS_ITS | Encounter Summary ---
Author Organization [employer] ([place], [place], [place], [place]) Address [address] [place] [address] Care Team Providers Care Germination Worker Name Role Phone Unavailable Primary Care Provider Unavailabl e Encounter Details Date Type Department Care Team (Late st Contact Info) Description 10/06/2020 Transcribed Document [facility] Neurology - [facility] [address] [facility] [address] [place] [address] Srinivas Melendez MD [address] [place] [address] Social History Tobacco Use Types [...] Problems PN (peripheral neuropathy) / SNOMED CT 993069797 / Confirmed Neck pain / SNOMED CT 197938573 / Confirmed Hypothyroid / SNOMED CT 86732823 / Confirmed HTN (hypertension) / SNOMED CT 5199945249 / Confirmed HLD (hyperlipidemia) / SNOMED CT 29517991 / Confirmed GERD (gastroesophageal reflux disease) / SNOMED CT 160088676 / Confirmed Depression / SNOMED CT 09465565 / Confirmed Back pain / SNOMED CT 938605122 / Confirmed At risk for sleep apnea / IMO 62593221 / Confirmed Anxiety / SNOMED CT 79545087 / Confirmed, Active Problems (10) Anxiety At [...] EST Height Source Measured Height Entry Format Sparks Height/Length, TAJIK (ft) 5 ft Height/Length TAJIK 3 Inch CLINICALHEIGHT 160.02 cm Riva Body Weight 52 kg Weight Source Standing scale Weight Entry Format Sparks Weight French lb 244 lb CLINICALWEIGHT 110.91 kg Body [...] ROM neck, RUE weakness. Integumentary: Warm, Dry, [place]. Neurologic: Alert, Oriented. Psychiatric: Cooperative, Appropriate mood & affect. Review / Management Results review: No qualifying data available. Impression and Plan Condition: Stable. documented in this encounter Plan of Treatment Not on file documented as of this encounter Visit Diagnoses Not on filedocumented in this encounter
--- OUTSIDE RECORDS SUMMARY | 2025-03-23 08:47 | XMS_ITS | Encounter Summary ---
Author Organization [email or web address] ([place], [place], [place], [place]) Address [address] [place] [address] Care Team Providers Care Printer Helper Name Role Phone Unavailable Primary Care Provider Unavailabl e Encounter Details Date Type Department Care Team (Late st Contact Info) Description 10/06/2020 Transcribed Document [facility] [place] Family Medicine [facility] [place] [address] ProviderPat MD [address] [place] [address] Social History Tobacco Use Types [...] - Pat ProviderMD - 10/06/2020 12:27 PM GAGGERMAN [facility] Main OR PACU Summary Primary Physician: MARION COBOS MD-SNU Finalized Date/Time: 10/06/20 15:35:11 Pt. Name: BUSHRA LUNDBERG D.O.B./Sex: 1965 Female Med Rec #: [id number] Physician: MARION COBOS MD-MIKO Financial #: [id number] Pt. Type: O Room/Bed: Admit/Disch: 10/06/20 08:45:00 - Institution: [facility] Main OR PACU I Case Times Entry 1 In PACU I 10/06/20 13:20:00 Ready for PACU 10/06/20 14:25:00 Discharge Discharge from PACU 10/06/20 15:25:00 I Last Modified By: CINDY AGUIRRE RN 10/06/20 15:34:39 [facility] Main OR PACU Acuity Entry 1 Start Time 10/06/20 14:25:00 Stop Time 10/06/20 15:25:00 Acuity Level [facility] PACU Acuity I Last Modified By: CINDY AGUIRRE RN 10/06/20 15:35:08 Finalized By: CINDY AGUIRRE, RN Document Signatures Signed By: CINDY AGUIRRE RN 10/06/20 15:35 Electronically signed by Ashwin [facility] Conversion Collar Trimmer Cerner at 01/07/2023 7:31 PM CDT documented in this encounter Plan of Treatment Not on file documented as of this encounter Visit Diagnoses Not on filedocumented in this encounter
--- OUTSIDE RECORDS SUMMARY | 2025-03-23 08:47 | XMS_ITS | Encounter Summary ---
Author Organization [employer] ([place], [place], [place], [place]) Address [address] [place] [address] Care Team Providers Care Process Controls Technician Name Role Phone Unavailable Primary Care Provider Unavailabl e Encounter Details Date Type Department Care Team (Late st Contact Info) Description 04/06/[address] [facility] [place] Medicine [facility] [place] [address] ProviderPat MD [address] [place] [address] Social History Tobacco Use Types [...] Pat ProviderMD - 04/06/2021 11:42 AM CDT [facility] Main OR Preop Summary Primary Physician: MARION COBOS MD-SNU Finalized Date/Time: 04/06/21 12:32:08 Pt. Name: BUSHRA LUNDBERG D.O.B./Sex: 1965 Female Med Rec #: [id number] Physician: MARION COBOS MD-SNU Financial #: [id number] Pt. Type: O Room/Bed: ASA/3 Admit/Disch: 04/06/21 06:47:00 - Institution: [facility] PreOp Case Times Entry 1 In Preop 04/06/21 08:53:00 Ready for Holding n/a Room Patient Ready for 04/06/21 10:00:00 Surgery Patient Out of Preop 04/06/21 11:11:00 Patient Out of n/a Holding Room Last Modified By: ANA LORD RN 04/06/21 12:32:01 [facility] PreOp Case Times Audit 04/06/21 12:32:01 Wrapper Layer: KODAK Modifier: [place] <+> 1 Patient Out of Preop 04/06/21 10:12:28 Wrapper Layer: KODAK Modifier: [place] 1 <*> Patient Ready for Surgery 04/06/21 10:12:00 Finalized By: ANA LORD RN Document Signatures Signed By: ANA LORD RN 04/06/21 12:32 Electronically signed by Ashwin [facility] Conversion Aircraft Maintenance Director Cerner at 01/07/2023 7:30 PM CDT documented in this encounter Plan of Treatment Not on file documented as of this encounter Visit Diagnoses Not on filedocumented in this encounter
--- OUTSIDE RECORDS SUMMARY | 2025-03-23 08:47 | XMS_ITS | Encounter Summary ---
Author Organization [employer] ([place], [place], [place], [place]) Address [address] [place] [address] Care Team Providers Care Sill Worker Name Role Phone Unavailable Primary Care Provider Unavailabl e Encounter Details Date Type Department Care Team (Late st Contact Info) Description 10/06/2020 Transcribed Document [facility] [place] [facility] [place] [address] ProviderPat MD [address] [place] [address] Social History Tobacco Use Types [...] - Pat ProviderMD - 10/06/2020 12:27 PM LIFESTYLE CONSULTANT [facility] Main OR PostOp Summary Primary Physician: MARION COBOS MD-SNU Finalized Date/Time: 10/06/20 17:50:53 Pt. Name: BUSHRA LUNDBERG D.O.B./Sex: 1965 Female Med Rec #: [id number] Physician: MARION COBOS MD-SNU Financial #: [id number] Pt. Type: O Room/Bed: Admit/Disch: 10/06/20 08:45:00 - Institution: [facility] Main OR PostOp Case Times Entry 1 In PACU II 10/06/20 15:34:00 Ready for PACU II 01/20/21 16:15:00 Discharge Discharge from PACU 10/06/20 16:43:00 II Last Modified By: JAYDA PAUL RN 10/06/20 17:46:19 Finalized By: JAYDA PAUL RN Document Signatures Signed By: JAYDA PAUL RN 10/06/20 17:50 Electronically signed by Ashwin [facility] Conversion Chemical Radiation Technician Cerner at 01/07/2023 7:37 PM CDT documented in this encounter Plan of Treatment Not on file documented as of this encounter Visit Diagnoses Not on filedocumented in this encounter
--- OUTSIDE RECORDS SUMMARY | 2025-03-23 08:47 | XMS_ITS | Encounter Summary ---
Author Organization [employer] ([place], [place], [place], [place]) Address [address] [place] [address] Care Team Providers Care Sea Kayaking Guide Name Role Phone Unavailable Primary Care Provider Unavailabl e Encounter Details Date Type Department Care Team (Late st Contact Info) Description 04/06/2021 Transcribed Document [facility] [place] - [facility] [address] [facility] [address] [place] [address] Srinivas Melendez MD [address] [place] [address] Social History Tobacco Use Types [...] Problems PN (peripheral neuropathy) / SNOMED CT 018021455 / Confirmed Neck pain / SNOMED CT 764305575 / Confirmed Hypothyroid / SNOMED CT 89969363 / Confirmed HTN (hypertension) / SNOMED CT 7643056309 / Confirmed HLD (hyperlipidemia) / SNOMED CT 99880107 / Confirmed GERD (gastroesophageal reflux disease) / SNOMED CT 639720865 / Confirmed Depression / SNOMED CT 65869039 / Confirmed Back pain / SNOMED CT 989085088 / Confirmed At risk for sleep apnea / IMO [id number] / Confirmed Anxiety / SNOMED CT 54479321 / Confirmed, Active Problems (10) Anxiety At [...] RUE weakness, LLE weakness. Integumentary: Warm, Dry, Wrens. Neurologic: Alert, Oriented. Psychiatric: Cooperative, Appropriate mood [...]
--- OUTSIDE RECORDS SUMMARY | 2025-03-23 08:48 | XMS_ITS | Encounter Summary ---
Author Organization [employer] ([place], [place], [place], [place]) Address [address] [place] [address] Care Team Providers Care Framing Consultant Name Role Phone Unavailable Primary Care Provider Unavailabl e Encounter Details Date Type Department Care Team (Late st Contact Info) Description 04/01/2021 Transcribed Document [facility] [place] [facility] [place] [address] ProviderPat MD [address] [place] [address] Social History Tobacco Use Types [...] Performed On: 04/01/2021 9:58 EDT by Anthony Cullne Rn Vital Measurements Temperature Source : Temporal [...] Source : Measured Height Entry Format : [place] Height, Feet : 0 ft(Converted to: 0 cm, 0 Inch) Height, Inches : 63.5 Inch(Converted to: 5 ft 3 Inch, 161.29 cm) Clinical Height : 161.29 cm Weight Source : Standing scale Weight Entry Format : [place] Clinical Dosing Weight : 110.94 kg Weight, Pounds : 244 lb Weight, Ounces : 1 oz Body Surface Area (BSA) : 2.12 m2 Body Mass Index : 42.6 kg/m2 (>HHI) [place] Body Weight : 53 kg ROBERT HOLBROOK RN - 04/04/2021 8:07 EDT Health Histories Smoking Status : Former smoker, quit more than 30 days ago Smokeless Tobacco Status : Never Implant/Device Type, Conservation Educator and Model : hardware in neck Anthony [...] : Yes Spiritual/Cultural Needs Comment : 04/06 Quaker Preference : Restorationist (Disciples of [place]) Spiritual/Cultural Needs Comment : 04/06 Anthony Cullen Rn - 04/01/2021 9:58 EDT [place] Suicide Severity Rating Scale (C-SSRS) CSSRS Past [...] Info Legal Guardian : Friend Support Person/Patient Mounter Smoking Pipe : Yes Support Person/Pt Rep Name : Lena Chapman - friend Support Person/Pt Rep Contact Information : [phone] Want Family/Rep/Phys Notified of Admit : No Emergency Contact #1 : ` Emergency Contact #1 Phone Number : ` Emergency Contact #1 Relationship : ` Emergency Contact #2 : ` Emergency Contact #2 Phone Number : ` Emergency Contact #2 Relationship : ` Primary Language : Honduran Communication Barrier : None Chore Tender Needed : No Anthony Cullen Rn [...] Sleep Apnea Risk Level Score : 4 RBOERT HOLBROOK RN - 04/04/2021 8:07 EDT Hx of Obstructive Sleep Apnea Diagnosis : No Snore Loudly : Yes Tired, Fatigued, or Sleepy During Day : No Observed Stopping Breathing During Sleep : No Have/Are Being Treated for Hypertension : No Age over 50 Years Old : Yes Gender Male : No Anthony Cullen Rn - 04/01/2021 9:58 EDT documented in this encounter Plan of Treatment Not on file documented as of this encounter Visit Diagnoses Not on filedocumented in this encounter
--- OUTSIDE RECORDS SUMMARY | 2025-03-23 08:48 | XMS_ITS | Encounter Summary ---
Author Organization [employer] ([place], [place], [place], [place]) Address [address] [place] [address] Care Team Providers Care Rug Clipper Name Role Phone Unavailable Primary Care Provider Unavailabl e Encounter Details Date Type Department Care Team (Late st Contact Info) Description 10/05/2020 Transcribed Document [facility] [place] [facility] [place] [address] ProviderPat MD [address] [place] [address] Social History Tobacco Use Types [...] - Historical ProviderMD - 10/05/2020 4:24 PM MANAGER OF CASE MANAGEMENT PAT Adult Entered On: 10/05/2020 16:28 EST Performed On: 10/05/2020 16:24 EST by Radha Hawley RN Height and Weight, Clinical Dosing Height Source : Measured Height Entry Format : [place] Height, Feet : 5 ft(Converted to: 152 cm, 60 Inch) Height, Inches : 3 Inch(Converted to: 0 ft 3 Inch, 7.62 cm) Clinical Height : 160.02 cm Weight Source : Standing scale Weight Entry Format : [place] Clinical Dosing Weight : 110.91 kg Weight, Pounds : 244 lb Body Surface Area (BSA) : 2.11 m2 Body Mass Index : 43.3 kg/m2 (>HHI) [place] Body Weight : 52 kg Radha Hawley [...] Radha Hawley RN - 10/05/2020 16:24 EST [place] Suicide Severity Rating Scale (C-SSRS) CSSRS Past [...] Support Person/Pt Rep Name : Raymond Lundberg [phone] Want Family/Rep/Phys Notified of Admit : No Emergency Contact #1 : x Emergency Contact #1 Phone Number : x Emergency Contact #1 Relationship : x Emergency Contact #2 : x Emergency Contact #2 Phone Number : x Emergency Contact #2 Relationship : x Chief Complaint : x Primary Language : Malaysian Communication Barrier : None Button Bradder Needed : No Radha Hawley RN - [...] Radha Hawley RN - 10/05/2020 16:24 EST documented in this encounter Plan of Treatment Not on file documented as of this encounter Visit Diagnoses Not on filedocumented in this encounter
--- OUTSIDE RECORDS SUMMARY | 2025-03-23 08:48 | XMS_ITS | Continuity of Care Document ---
Author Organization [place] - [place] [facility] Bariatrics and Adv Surg Address [address] [facility] [address] [place] [address] Care Team Providers Care Shank Threader Name Role Phone MARION LYLES Primary Care Provider Assessment No assessment recorded. Plan of Treatment Reminders Order Date Submit Date Provider Last Modified By Organization Details Last Modified Time Details Appointments OV EST 20 2024 09:20A Erick Woods, DNP, GRAIN WAFER MACHINE OPERATOR, CUSTODIAN SUPERVISOR-C Not available Not available Not available Lab copper, serum or plasma 2024 025 [facility], [address], [address], [place], [address], 02/23/2025 03:36:44 selenium , quantita tive, blood 2024 025 NATHAN [facility], [address], [address], [place], [address], 02/23/2025 03:36:46 zinc, serum or plasma 2024 025 NATHAN [facility], [address], [address], [place], [address], 02/23/2025 03:36:44 folate, serum 2024 025 NATHAN [facility], [address], [address], [place], [address], 02/23/2025 03:36:41 vitamin E, serum 2024 025 NATHAN [facility], [address], [address], [place], [address], 02/23/2025 03:36:40 vitamin A (retinol ), serum 2024 025 NATHAN [facility], [address], [address], [place], [address], 02/23/2025 03:36:41 prealbum in, serum 2024 025 NATHAN [facility], [address], [address], [place], [address], 02/23/2025 03:36:45 thiamine , QN, blood 2024 025 NATHAN [facility], [address], [address], [place], [address], 02/23/2025 03:36:43 methylma lonate, QN, serum or plasma 2024 025 NATHAN [facility], [address], [address], [place], [address], 02/23/2025 03:36:43 vitamin D, 25-hydro xy, total, serum 2024 025 NATHAN [facility], [address], [address], [place], [address], 02/23/2025 03:36:42 CBC w/ auto diff 2024 025 NATHAN [facility], [address], [address], [place], [address], 02/23/2025 03:36:38 CMP, serum or plasma 2024 025 NATHAN [facility], [address], [address], [place], [address], 02/23/2025 03:36:38 TSH + free T4, serum 2024 025 NATHAN [facility], [address], [address], [place], [address], 02/23/2025 03:36:37 HbA1c (hemoglo bin A1c), blood 2024 025 NATHAN [facility], [address], [address], [place], [address], 02/23/2025 03:36:40 lipid panel, serum 2024 025 [facility], [address], [address], [place], [address], 02/23/2025 03:36:39 iron + TIBC + ferritin , serum 2024 025 [facility], [address], [address], [place], [address], 02/23/2025 03:36:36 Referral None recorded . Procedures None recorded . Surgeries None recorded . Imaging None recorded . Medication Orders None recorded . Patient TargetsNo targets recorded. Patient InstructionsNo instructions recorded. Reason for Referral None Reported. Problems Name Problem SNOMED Code Status Onset Date Resolution Date Notes Provider Name and Address Organization Details Recorded Time Ulcer of anastomosi s 621294057 Active 2023 Hilario Woods DNP, GRAIN WAFER MACHINE OPERATOR, CUSTODIAN SUPERVISOR-C [address], [place], [address] , [facility] - NT [facility] & [place] 4 11:59:38 Obstructiv e sleep apnea syndrome 40816346 Active 2024 Hilario Woods DNP, GRAIN WAFER MACHINE OPERATOR, CUSTODIAN SUPERVISOR-C [address], [place], [address] , [place] - [facility] & [place] 5 08:32:41 Asthma - currently active 103920171 Active 2024 Hilario Woods DNP, GRAIN WAFER MACHINE OPERATOR, CUSTODIAN SUPERVISOR-C [address], [place], [place], [address] [place] [address] , [place] - [facility] - [place] & [place] 5 08:33:00 Pulmonary emphysema 74966717 Active 2024 Hilario Woods DNP, GRAIN WAFER MACHINE OPERATOR, CUSTODIAN SUPERVISOR-C [address], [place], [place], [address] [place] [address] , [place] - [facility] - [place] & [place] 5 08:33:06 History of clinical finding in subject 381503256 Active 2024 Hilario Woods DNP, GRAIN WAFER MACHINE OPERATOR, CUSTODIAN SUPERVISOR-C [address], [place], [place], [address] [place] [address] , [place] - [facility] - [place] & [place] 5 08:33:26 Nodule of lung 720998671 Active 2024 Hilario Woods DNP, GRAIN WAFER MACHINE OPERATOR, CUSTODIAN SUPERVISOR-C [address], [place], [place], [address] [place] [address] , [place] - [facility] - [place] & [place] 5 08:33:48 Hyperlipid emia 46689855 Active 2021 Hilario Woods DNP, GRAIN WAFER MACHINE OPERATOR, CUSTODIAN SUPERVISOR-C [address], [place], [place], [address] [place] [address] , [place] - [facility] - [place] & [place] 2 12:50:33 Hypothyroi dism 37192961 Active 2021 Hilario Woods DNP, GRAIN WAFER MACHINE OPERATOR, CUSTODIAN SUPERVISOR-C [address], [place], [address] [place] [address] , [place] - [facility] - [place] & [place] 2 12:50:39 History of sleeve gastrectom y 7551937179550 07 Active 2021 Hilario Woods DNP, GRAIN WAFER MACHINE OPERATOR, CUSTODIAN SUPERVISOR-C [address], [place], [address] [place] [address] , [place] - [facility] - [place] & [place] 2 12:51:22 Essential hypertensi on 49292726 Active 2021 Hilario Woods DNP, GRAIN WAFER MACHINE OPERATOR, CUSTODIAN SUPERVISOR-C [address], [place], [address] [place] [address] , [place] - [facility] - [place] & [place] 2 13:07:08 Iron deficiency anemia 63068407 Active 2021 Hilario Woods DNP, APRN, CUSTODIAN SUPERVISOR-C [address], [place], [address] [place] [address] , [place] - [facility] - [place] & [place] 2 13:18:48 Heartburn 97398759 Active 2021 Hilario Woods DNP, APRN, CUSTODIAN SUPERVISOR-C [address], [place], [address] [place] [address] , [place] - [facility] - [place] & [place] 2 13:39:01 Disorder of function of stomach 380663121 Active 2021 Hilario Woods DNP, APRN, CUSTODIAN SUPERVISOR-C [address], [place], [address] [place] [address] , [place] - [facility] - [place] & [place] 2 13:39:09 Morbid obesity 361813862 Active 2022 Hilario Woods DNP, SANGEETA, CUSTODIAN SUPERVISOR-C [address], [place], [address] [place] [address] , [place] - [facility] - [place] & [place] 3 09:30:50 Pre-surger y evaluation Active 2022 Hilario Woods DNP, SANGEETA, CUSTODIAN SUPERVISOR-C [address], [place], [address] [place] [address] , [place] - [facility] - [place] & [place] 3 09:32:01 Nausea 873353764 Active 2022 Hilario Woods DNP, GRAIN WAFER MACHINE OPERATOR, CUSTODIAN SUPERVISOR-C [address], [place], [address] [place] [address] , [place] - [facility] - [place] & [place] 3 09:36:40 Unintentio nal weight gain 2971660619070 04 Active 2023 Hilario Woods, DNP, GRAIN WAFER MACHINE OPERATOR, CUSTODIAN SUPERVISOR-C [address], [place], [address] , [place] - [facility] - [place] & [place] 4 12:27:34 Vomiting 070960102 Active 2023 Hilario Woods, DNP, GRAIN WAFER MACHINE OPERATOR, CUSTODIAN SUPERVISOR-C [address], [place], [address] , [place] - [facility] - [place] & [place] 4 14:01:05 Problem Notes None recorded. Procedures Surgical History Date Name Laterality Status Provider Name and Address Organization Details Recorded Time esophagogastroduodenoscopy completed Melanie Cortes [place] - [place] - [place] & [place] 3 09:26:22 Julio Cesar-en-Y gastrojejunostomy complete d Melanie Cortes [place] - [place] & [place] 3 08:29:39 laparoscopic sleeve gastrectomy completed Melanie Cortes [place] - [facility] - [place] & [place] 2 13:00:35 fusion of joint of c ervical spine by anterior approach for deformity of cervical spine completed Melanie Cortes [place] - [place] - [place] & [place] 2 13:01:48 revision of fusion o f cervical spine completed Melanie Cortes [place] - [place] - [place] & [place] 2 13:02:08 Stimulation of spinal cord completed Melanie Cortes [place] - [place] & [place] 2 13:02:22 esophagogastroduodenoscopy completed Melanie Cortes [place] - [facility] - [place] & [place] 2 13:02:28 Colonoscopy completed Melanie Cortes [place] - [facility] - [place] & [place] 2 13:02:42 Hysterectomy completed Melanie Cortes [place] - [facility] - [place] & [place] 2 13:03:46 cardiac catheterization completed R ebecca Cortes [place] - [facility] - [place] & [place] 2 13:05:15 Imaging Results None recorded. Procedure [...] 5 160.02 cm 98 [degF] 44.7 kg/m2 394480. 43 g 78 /min 119/76 mm[Hg] Mary [facility] - [place] & [place] 5 08:11:23 Social History None recorded. Functional Status Question Answer Note LastModified by Organizat ion Details LastModified Time Do you use any illicit or recreational drugs? No [email or web address] Information not available 07/14/2022 What is your level of alcohol consumption? None [email or web address] Information not available 07/14/2022 Mental Status None [...] SNOMED-CT Code Diagnosis ICD10 Code Diagnosis Note [id number] Hilario Woods, DNP, GRAIN WAFER MACHINE OPERATOR, CUSTODIAN SUPERVISOR-C [facility] n Bariatric s and Adv Surg [address] [place] [address] 02/16/2025 07:58:17 02/16/2025 09:13:14 History of bariatric surgical procedure 884254520 Z98.84 Intentiona l weight loss 913302883 R63.8 History of gastrectomy 931109334 Z90.3 Advised qid intake 50% protein 0439-3205 calories/d y less than 100 carbs/dyLo ng [...] correct any vitamin deficienci es. [facility] risk of nutritional deficit 264764511 Z91.89 Essential hypertension 27938294 I10 Hyperlipidemia 54670873 E78.5 Hypothyroidism 66537417 E03.9 Iron defic iency anemia 11131646 D50.9 Heartburn 44831237 R12 GERD-patie nt was reassured. We discussed [...] appt for UGI. History of sleeve gastrectomy 7793115965 39357 Z90.3 Morbid obesity 831478803 E66.01 Unintentio nal weight gain 5263561229 86405 R63.5 Obstructiv e sleep apnea syndrome 57350361 G47.33 Pulmonary emphysema 8743 3001 J43.9 Asthma - c urrently active 189962893 J45.909 History of clinical finding in subject 775326264 Z87.891 Nodule of lung 768252775 R91.1 advised to keep all upcoming appt. Health Concerns Section Related Observation LastModified by Organization Detai ls LastModified Time None Recorded Concern Status LastModified by Organization Details LastModified Time None Recorded Payers Encounter Date Sequence Insurance Name Policy Number Policy Rojas Covered Member ID Rojas Member ID Guarantor Name 02/16/2025 1 [facility] (MEDICAID REPLACEMENT - HMO) [id number] Bushra Lundberg [id number] Bushra Lundberg Notes Date Note Type Note [...] troesophageal reflux: yes (is food related, manasa Swazi)Pt Denies : abdominal pain, prandial issues Nausea, [...] she is to follow up with her supervisor composing room in [address] scan. She is also seeing a yarder operator oncologist Dr. Raymond Bowen out of [facility]. She does not have a follow [...] = 1509 kilo calories Hilario Woods, DNP, GRAIN WAFER MACHINE OPERATOR, CUSTODIAN SUPERVISOR-C [address], [place], [address], [facility] [place] [facility] [place] 02/16/2025 08:34:53 OBGyn Episode No OBEpisode recorded.
--- OUTSIDE RECORDS SUMMARY | 2025-03-23 08:48 | XMS_ITS | Clinical Summary ---
Author Organization Healthcare Address [address] [id number] Care Team Providers Care Fork Lift Technician Name Role Phone Raymond Duarte MD Primary Care Provider [phone] Family History Medical History Relation Name Comments [...] of Treatment Not on file Care Teams Fork Lift Technician Relationship Specialty Start Date End Date Raymond Duarte MD [address] [place] [address] PCP - General 01/28/21
--- OUTSIDE RECORDS SUMMARY | 2025-03-23 08:48 | XMS_ITS | Encounter Summary ---
Author Organization [employer] ([place], [place], [place], [place]) Address [address] [place] [address] Care Team Providers Care Highway Engineer Name Role Phone Unavailable Primary Care Provider Unavailabl e Encounter Details Date Type Department Care Team (Late st Contact Info) Description 04/06/2021 Transcribed Document [facility] [place] [facility] [place] [address] ProviderPat MD [address] [place] [address] Social History Tobacco Use Types [...] Pat ProviderMD - 04/06/2021 11:42 AM CDT [facility] Main OR PACU Summary Primary Physician: MARION COBOS MD-SNRaquel Finalized Date/Time: 04/06/21 14:03:32 Pt. Name: BUSHRA LUNDBERG D.O.B./Sex: 1965 Female Med Rec #: [id number] Physician: MARION COBOS MD-SNU Financial #: [id number] Pt. Type: O Room/Bed: ASA/3 Admit/Disch: 04/06/21 06:47:00 - Institution: [facility] Main OR PACU I Case Times Entry 1 In PACU I 04/06/21 13:05:00 Ready for PACU 04/06/21 13:55:00 Discharge Discharge from PACU 04/06/21 13:55:00 I Last Modified By: COSMO PIERRE RN 04/06/21 14:03:24 [facility] Main OR PACU I Case Times Audit 04/06/21 14:03:24 Sider Mechanic: [id number] Modifier: [id number] <+> 1 Ready for PACU Discharge <+> 1 Discharge from PACU I Finalized By: COSMO PIERRE RN Document Signatures Signed By: COSMO PIERRE RN 04/06/21 14:03 Electronically signed by Ashwin [facility] Conversion Radiator Fitter Cerner at 01/07/2023 7:30 PM CDT documented in this encounter Plan of Treatment Not on file documented as of this encounter Visit Diagnoses Not on filedocumented in this encounter
--- OUTSIDE RECORDS SUMMARY | 2025-03-23 08:48 | XMS_ITS | Clinical Summary ---
Author Organization [employer] ([place], [place], [place], [place]) Address [address] [place] [address] Care Team Providers Care Road Driver Name Role Phone Unavailable Primary Care Provider [...]
--- OUTSIDE RECORDS SUMMARY | 2025-03-23 08:48 | XMS_ITS | Encounter Summary ---
Author Organization [employer] ([place], [place], [place], [place]) Address [address] [place] [address] Care Team Providers Care Behavioral Geneticist Name Role Phone Unavailable Primary Care Provider Unavailabl e Encounter Details Date Type Department Care Team (Late st Contact Info) Description 10/05/2020 Transcribed Document [facility] [place] [address] [place] [address] ProviderPat MD [address] [place] [address] Social History Tobacco Use Types [...] - Historical ProviderMD - 10/05/2020 1:54 PM MATERIALS BRANCH CHIEF [facility] Authorization Entered On: 10/05/2020 13:54 EST Performed On: 10/05/2020 13:54 EST by REKHA BURNHAM Account Resolution Expert Primary Insurance Authorization Authorization and Policy Numbers : Insurance 1 Health Plan: [employer] [place] Policy Number: [id number] Authorization Number: Authorization Comments-Primary : pt is bruno for OUT PT Cervical Discectomy Fusion Anterior on Sun10-06-20 Historical Authorization Comments-Primary : No Authorization Comments Found REKHA BURNHAM, Account Resolution Expert - 10/05/2020 13:54 EST Electronically signed by Ashwin [facility] Conversion Scrum Master Cerner at 01/07/2023 7:37 PM CDT documented in this encounter Plan of Treatment Not on file documented as of this encounter Visit Diagnoses Not on filedocumented in this encounter
--- OUTSIDE RECORDS SUMMARY | 2025-03-23 08:48 | XMS_ITS | Encounter Summary ---
Author Organization [email or web address] ([place], [place], [place], [place]) Address [address] [place] [address] Care Team Providers Care Stand In Name Role Phone Unavailable Primary Care Provider Unavailabl e Encounter Details Date Type Department Care Team (Late st Contact Info) Description 10/06/2020 Transcribed Document [facility] [place] [address] [place] [address] ProviderPat MD [address] [place] [address] Social History Tobacco Use Types [...] - Pat ProviderMD - 10/06/2020 4:32 PM CENTRAL SUPPLY NURSE [facility] [place] [address] BUSHRA LUNDBERG :1965 Visit Time:10/06/2020 What [...] TIMES A DAY WHILE ON PAIN MEDICATION [facility] ACDF INSTRUCTIONS Discharge Follow Up Instructions: f/u 4-5 weeks post op with AP/lateral x-rays of the cervical spine. Follow-Up Appointments Follow Up with MARION SIMON When Within 1 month Comments Follow-up as instructed [facility] AT [facility] THEN FOLLOW UP WITH dr simon afterwards Where: [address] (SUNDAY ONLY) [place] [address]- [facility] (1) Medications What How Much When Instructions [...] and water are not available, use hand morning nanny. ? Change your dressing as told by [...] or a bad smell. Medicines ??? Take udwh-hra-zughawv and prescription medicines only as told by [...] 12/24/2016 Document Revised: 12/02/2018 Document Reviewed: 12/24/2016 [employer] Patient Education ?? 2020 [employer] Emergency Awareness and Preventative Care STROKE [...] Assistance with quitting is available by contacting 0-555-GLHQ-NOW. This is a free resource providing counseling, [...] was given the opportunity to ask questions. Patient/Defensive Secondary Coach Name: Patient/Defensive Secondary Coach Signature: Relationship to Patient: Clinician/Hospital Defensive Secondary Coach Signature: Date: Electronically signed by Ashwin, [facility] Conversion Quality Control Projectionist Armen at 01/07/2023 7:29 PM CDT documented in this encounter Plan of Treatment Not on file documented as of this encounter Visit Diagnoses Not on filedocumented in this encounter
[2025-03-23 09:02] VITALS: BP 110/60; PULSE 55; RESP 18; O2SAT 97; BMI 43.4
--- NOTE | 2025-03-23 09:03 | EXP.PAIN.SOA ---
[facility] Disclaimer: The information contained in this section may have been updated after the patient was seen, as this information can be updated by other users. Medical History Thyroid nodule History of ulcer disease History of hyperlipidemia History of emphysema History of anxiety History of depression History of coronary artery disease Abnormal findings on diagnostic imaging of heart and coronary circulation Abnormal nuclear cardiac imaging test Obesity Pulmonary emphysema Dyspnea on exertion Lung nodule Thyroiditis Diastolic dysfunction Thyroid disease History of gastroesophageal reflux (GERD) Atypical chest pain Bigeminy PAC (premature atrial contraction) Generalized anxiety disorder Recurrent major depression resistant to treatment Dysphagia An EGD was done. Noted that her gastric sleeve was somewhat expanded. She also had dilatation done on her esophagus. Recommended repeat in approximately 3 years. Thyroiditis She also has hypothyroidism likely related to this. With her elevated TSH, I am going to increase her levothyroxine dose and recheck her levels. Metabolic syndrome Pre-diabetes Bilateral foot pain Abnormal weight Urinary incontinence Vitamin D deficiency Hypothyroidism Low back pain Knee pain Hyperlipidemia Hypertension Surgical History History of hysterectomy Status post gastric banding surgery 07/23/18 Family History Other Anxiety Coronary artery disease Depression Diabetes Hypertension No significant family history Obesity Social History Smoking Status: Former smoker smoking status stop date: November 2024 second hand exposure: No alcohol intake: never substance use type: denies use current occupational status: other Travel in the last 8 weeks?: None household members: spouse housing: house number of children: 2 current occupational exposures/hazards: No caffeine: Yes Have you lived/traveled outside US in past 30 days?: No Contact w/someone who lives/traveled outside US past 30 days?: No Exposure to someone with infectious disease in past 14 days?: No Do you have a fever (greater than 100.4 F or 38 C)?: No Have you tested positive for COVID-19?: No Exposed to someone with COVID-19 in past 14 days?: No Do you have a sore throat?: No Do you have a cough?: No Do you have any weakness?: No Do you have any diarrhea?: No Are you experiencing any unusual bleeding?: No Do you have any muscle aches/pain?: No Do you have any abdominal pain?: No Are you experiencing loss of taste or smell?: No PM Subjective & Objective Subjective Subjective:: Patient is a pleasant 60-year-old female who presents today for worsening low back pain that does radiate down her entire left extremity with numbness. She does state that she has had this pain before but it has been sometime. Patient does state that it is worse the more she is up walking and moving and she feels like her leg will give out. She states that she has gotten more intense the last several weeks. Patient is interested in any help we may be able to provide as it is interfering with her ability perform activities of daily living such as cooking and cleaning. Patient has continued conservative treatment with no additional improvement. Patient does also have her spinal cord stimulator in place and states the stimulation can help some. Patient was previously prescribed pregabalin 75 mg twice a day from our office along with compounded cream and ropinirole. Dr. Wolfe did change her to horizant however she states she is still having issues with this medication including weight gain. Patient states that she has gained about 20 pounds and feels like that is the only change. Her Edwin has been reviewed and is appropriate. Review of Systems: General: No recent weight changes, no fever, no sleep disturbances Respiratory: No cough, no shortness of air, no recurring pulmonary infections Cardiovascular/peripheral vascular: No chest pain, no palpitations, no edema, no shortness of breath Gastrointestinal: No new onset incontinence, normal bowel movements reported Genitourinary: No new onset incontinence Musculoskeletal: Low back pain, left leg numbness tingling Psychiatric: [Normal mood/affect] Neurological: [Denies weakness in extremities], [denies balance issues] Pain at rest (0-10 scale): 7 Objective Objective:: Physical Exam: General: Alert and oriented x3, no acute distress, pleasant and cooperative Lungs: Respirations even and unlabored, symmetrical chest expansion Eyes: PERRL Musculoskeletal: Flexion and extension of lumbar [spine] somewhat guarded secondary to pain, [antalgic gait noted] positive left leg raise Neurological: Speech clear, no gross sensory deficit Has patient had previous pain injection?: No Conservative treatment options previously tried: Home exercise plan Length of treatment: Longer than 12 weeks Meds Home Medications and Allergies Home Medications ?Medication ?Instructions ?Recorded ?Confirmed ?Type ergocalciferol (vitamin D2) 1,250 See Rx Instructions .Route 12/28/23 03/19/25 Rx mcg (50,000 unit) capsule .COMPLEX #14 caps cyclobenzaprine 10 mg tablet See Rx Instructions .Route 08/25/24 03/19/25 Rx .COMPLEX #30 tabs lisinopril 10 mg tablet 10 mg PO DAILY 90 days #90 tabs 10/28/24 03/19/25 Rx bupropion HCl 150 mg 24 hr tablet, 150 mg PO DAILY 11/07/24 03/19/25 History extended release pantoprazole 40 mg tablet,delayed 40 mg PO DAILY 11/07/24 03/19/25 History release cariprazine 3 mg capsule (Vraylar) 3 mg PO DAILY #30 caps 12/18/24 03/19/25 Rx duloxetine 60 mg capsule,delayed See Rx Instructions .Route 12/18/24 03/19/25 Rx release .COMPLEX #90 caps aspirin 81 mg tablet,delayed 81 mg PO DAILY #30 tabs 01/08/25 03/19/25 Rx release (Adult Low Dose Aspirin) metoprolol succinate 25 mg 25 mg PO DAILY #90 tabs 01/08/25 03/19/25 Rx tablet,extended release 24 hr (Toprol XL) buspirone 10 mg tablet 10 mg PO TID PRN 01/23/25 03/19/25 History gabapentin enacarbil 600 mg 600 mg PO HS #30 tabs 01/26/25 03/19/25 Rx tablet,extended release (Horizant ER) spironolactone 25 mg tablet 25 mg PO DAILY #90 tabs 01/26/25 03/19/25 Rx atorvastatin 10 mg tablet See Rx Instructions .Route 01/29/25 03/19/25 Rx .COMPLEX #30 tabs oxybutynin chloride 10 mg See Rx Instructions .Route 01/29/25 03/19/25 Rx tablet,extended release 24 hr .COMPLEX #30 tabs budesonide-formoterol HFA 160 2 puff inhalation BID 90 days 02/10/25 03/19/25 Rx mcg-4.5 mcg/actuation aerosol #10.2 grams inhaler furosemide 40 mg tablet 40 mg PO DAILY #90 tabs 02/24/25 03/19/25 Rx levothyroxine 200 mcg capsule 200 mcg PO DAILY #30 caps 02/24/25 03/19/25 Rx levothyroxine 25 mcg tablet 25 mcg PO DAILY #60 tabs 02/24/25 03/19/25 Rx (Synthroid) amitriptyline 25 mg tablet 25 mg PO DIRECTED N/A 03/19/25 03/19/25 History cholecalciferol (vitamin D3) 1,250 1,250 mcg PO DIRECTED SUPPLIMENT 03/19/25 03/19/25 History mcg (50,000 unit) capsule pregabalin 75 mg capsule 75 mg PO DAILY Pain 03/19/25 03/19/25 History ropinirole 0.25 mg tablet 0.25 mg PO DAILY RESTLESS LEGS 03/19/25 03/19/25 History New Prescriptions to Start Prescriptions: Allergies Allergy/AdvReac Type Severity Reaction Status Date / Time adhesive tape Allergy Rash Verified 03/19/25 14:00 Assessment and Plan *Assessment and plan (1) Degenerative disc disease, lumbar: Status: Acute Qualifiers: Disc-related pain type: discogenic back pain and lower extremity pain Qualified Code(s): M51.362 - Other intervertebral disc degeneration, lumbar region with discogenic back pain and lower extremity pain Category: Medical Code(s): M51.369 - Other intervertebral disc degeneration, lumbar region without mention of lumbar back pain or lower extremity pain (2) Lumbar radiculopathy: Status: Acute Category: Medical Code(s): M54.16 - Radiculopathy, lumbar region Plan Patient is experiencing worsening pain in her low back with numbness and tingling into her lower extremities. Patient did have limited range of motion of her lumbar spine with a positive leg raise. I did discuss with patient that I do believe they would benefit from a lumbar epidural steroid injection. Risk and benefits were discussed with patient and the patient would like to proceed forward with this plan of care. Patient is not on any blood thinners. Patient has tried and failed conservative therapy including oral medications, heat and ice, topicals and continued at home stretching exercise for longer than 12 weeks between injections. Patient has had chronic back pain for longer than 6 months. Patient did previously have a lumbar epidural back in June 2021 that provided 60 to 70% relief and lasted longer than 2 years. Patient states she has really not had these issues since that injection. Patient was unaware how long it actually was. We will schedule the patient for an LESI L4-L5 under fluoroscopy. We did also discuss in future if at any time that Dr. Wolfe and her decide that they would like her to go back on the pregabalin and she would like us to restart this medication to just let us know. Patient has been instructed to contact the clinic with any concerns before the next appointment. Dr. Wallis has reviewed this note and agrees with this plan of care. This note was dictated using voice recognition software and make contain errors or omissions. All injections are used with Lidocaine, Bupivacaine and dexamethasone. Occasionally urine drug screen is needed to verify patient's compliance with our office pain contract. This is ordered based off specific treatments related to chronic pain with the potential to abuse certain medications.
== END 2025-03-23 23:59 | disposition home or self-care (01) ==
LOC: SC.PAIN 08:45
PROVIDERS: PCP Internal Medicine; Visit Provider Nurse Practitioner Family
DX: M51.16 Intervertebral disc disorders with radiculopathy, lumbar region (principal); Z79.899 Other long term (current) drug therapy
CPT/HCPCS: 99212; G0463

== ENCOUNTER 2025-03-31 08:57 | Day surgery (SDC) | payer MEDICAID, SELFPAY ==
[2025-03-31 09:02] VITALS: BP 113/77; PULSE 54; RESP 18; O2SAT 99; BMI 42.5
--- NOTE | 2025-03-31 09:24 | EXP.PAIN.PRO ---
Procedure Date: 03/31/25 Time: 09:10 Anesthesiologist:: Nahid Quiroga CRNA Complications:: None Pre-procedure Diagnosis:: Degenerative disc lumbar spine multilevels. Lumbar radiculopathy. Post-procedure Diagnosis:: Same. Indications for Procedure:: Patient is a very pleasant 60-year-old female who comes our clinic today for lumbar epidural steroid injection. Patient describes low lumbar back pain as constant, dull, aching. Patient also reports bilateral hip and leg radicular symptoms at times. She rates her pain 7/10. Procedure Details:: Procedure: Lumbar epidural steroid injection under fluoroscopy Informed consent was obtained and the risks and benefits of the procedure were explained to the patient. The patient was taken to the procedure room and noninvasive monitors placed, including noninvasive blood pressure cuff and pulse oximeter. The back was viewed using C-arm Fluoroscopy and prepped using Chloraprep as a cleansing solution and the L4-L5 interspace was palpated. Skin and subcutaneous tissues were anesthetized using lidocaine 1.5% and a 25-gauge needle. After this, an 18-gauge Touhy epidural needle was placed into the L4-L5 interspace and advanced using fluoroscopic guidance and loss of resistance to air until the epidural space was encountered. After confirmation of needle placement in the epidural space, with dye, a solution containing normal saline, 3 mL and dexamethasone 10 mg were incrementally injected into the lumbar epidural space. The patient tolerated the procedure well with no complications. The patient was observed in the Pain Clinic and then discharged home neurologically intact. Plan and Disposition:: Patient was discharged without incident.
[2025-03-31 09:26] VITALS: BP 128/65; PULSE 56; RESP 18; O2SAT 98
[2025-03-31] MEDS: DEXAMETHASONE 10MG/ML 1ML VIAL 10 MG (09:26)
[2025-03-31 09:28] VITALS: BP 128/65; PULSE 56; RESP 18; O2SAT 98
[2025-03-31 09:32] VITALS: BP 138/81; PULSE 53; RESP 18; O2SAT 100
== END 2025-03-31 09:32 | disposition home or self-care (01) ==
PROVIDERS: PCP Internal Medicine; Visit Provider Nurse Anesthetist, Certified Registered
DX: M51.16 Intervertebral disc disorders with radiculopathy, lumbar region (principal); M25.552 Pain in left hip; M25.551 Pain in right hip; E06.9 Thyroiditis, unspecified; J43.9 Emphysema, unspecified; F33.9 Major depressive disorder, recurrent, unspecified; E66.9 Obesity, unspecified; Z68.41 Body mass index [BMI] 40.0-44.9, adult; E78.5 Hyperlipidemia, unspecified; I10 Essential (primary) hypertension; E55.9 Vitamin D deficiency, unspecified; K21.9 Gastro-esophageal reflux disease without esophagitis; Z87.891 Personal history of nicotine dependence; Z91.048 Other nonmedicinal substance allergy status; Z79.51 Long term (current) use of inhaled steroids; Z79.890 Hormone replacement therapy; Z79.899 Other long term (current) drug therapy; Z79.82 Long term (current) use of aspirin
CPT/HCPCS: 62323; J1100

== ENCOUNTER 2025-04-22 08:47 | Outpatient (CLI) | payer MEDICAID, SELFPAY ==
--- OUTSIDE RECORDS SUMMARY | 2025-04-22 08:49 | XMS_ITS | Referral Summary ---
Author Organization [employer] ([place], [place], [place], [place]) Address [address] [place] [address] Care Team Providers Care Nurse Reviewer Name Role Phone Unavailable Primary Care Provider [...]
--- OUTSIDE RECORDS SUMMARY | 2025-04-22 08:49 | XMS_ITS | Encounter Summary ---
Author Organization [employer] ([place], [place], [place], [place]) Address [address] [place] [address] Care Team Providers Care V Belt Curer Name Role Phone Unavailable Primary Care Provider Unavailabl e Encounter Details Date Type Department Care Team (Late st Contact Info) Description 10/06/2020 Transcribed Document [facility] [address] [facility] [address] [place] [address] Srinivas Melendez MD [address] [place] [address] Social History Tobacco Use Types [...] Problems PN (peripheral neuropathy) / SNOMED CT 469857166 / Confirmed Neck pain / SNOMED CT 035375396 / Confirmed Hypothyroid / SNOMED CT 13292542 / Confirmed HTN (hypertension) / SNOMED CT 9793912320 / Confirmed HLD (hyperlipidemia) / SNOMED CT 46939201 / Confirmed GERD (gastroesophageal reflux disease) / SNOMED CT 702185547 / Confirmed Depression / SNOMED CT 44833557 / Confirmed Back pain / SNOMED CT 263169916 / Confirmed At risk for sleep apnea / IMO 05155189 / Confirmed Anxiety / SNOMED CT 86838282 / Confirmed, Active Problems (10) Anxiety At [...] EST Height Source Measured Height Entry Format Dixon Height/Length, VENEZUELAN (ft) 5 ft Height/Length VENEZUELAN 3 Inch CLINICALHEIGHT 160.02 cm Elida Body Weight 52 kg Weight Source Standing scale Weight Entry Format Dixon Weight Tamazight lb 244 lb CLINICALWEIGHT 110.91 kg Body [...] ROM neck, RUE weakness. Integumentary: Warm, Dry, Whiteash. Neurologic: Alert, Oriented. Psychiatric: Cooperative, Appropriate mood & affect. Review / Management Results review: No qualifying data available. Impression and Plan Condition: Stable. documented in this encounter Plan of Treatment Not on file documented as of this encounter Visit Diagnoses Not on filedocumented in this encounter
--- OUTSIDE RECORDS SUMMARY | 2025-04-22 08:50 | XMS_ITS | Encounter Summary ---
Author Organization [employer] ([place], [place], [place], [place]) Address [address] [place] [address] Care Team Providers Care Car Wash Attendant Automatic Name Role Phone Unavailable Primary Care Provider Unavailabl e Encounter Details Date Type Department Care Team (Late st Contact Info) Description 04/06/2021 Transcribed Document [facility] Neurology - [address] [facility] [address] [place] [address] Srinivas Melendez MD [address] [place] [address] Social History Tobacco Use Types [...] diskectomy and fusion. 2. Replating from C4-C7. ARMATURE BANDER: [place]. TYPE OF ANESTHESIA: GEA. DESCRIPTION [...] the distraction pins were. A 48 mm Tiro plate was then affixed to the anterior [...] LOSS: 50 mL. DRAINS: None. COMPLICATIONS: None. /[id number] MD BEN Rodrigez/RIGOBERTO / MPT / MODL /[id number] CC: eLeann Johnson documented in this encounter Plan of Treatment Not on file documented as of this encounter Visit Diagnoses Not on filedocumented in this encounter
--- OUTSIDE RECORDS SUMMARY | 2025-04-22 08:50 | XMS_ITS | Encounter Summary ---
Author Organization [employer] ([place], [place], [place], [place]) Address [address] [place] [address] Care Team Providers Care Cemetery Keeper Name Role Phone Unavailable Primary Care Provider Unavailabl e Encounter Details Date Type Department Care Team (Late st Contact Info) Description 04/06/2021 Transcribed Document [facility] [place] [facility] [place] [address] ProviderPat MD [address] [place] [address] Social History Tobacco Use Types [...] 04/06/2021 11:42 AM CDT [facility] Main OR PostOp Summary Primary Physician: MARION COBOS MD-SNU Finalized Date/Time: 04/07/21 13:01:30 Pt. Name: BUSHRA LUNDBERG D.O.B./Sex: 1965 Female Med Rec #: [id number] Physician: MARION COBOS MD-SNU Financial #: [id number] Pt. Type: O Room/Bed: ASA/3 Admit/Disch: 04/06/21 06:47:00 - 04/06/21 15:30:00 Institution: [facility] Main OR PostOp Case Times Entry 1 [...]
--- OUTSIDE RECORDS SUMMARY | 2025-04-22 08:50 | XMS_ITS | Encounter Summary ---
Author Organization [employer] ([place], [place], [place], [place]) Address [address] [place] [address] Care Team Providers Care Boot And Saddle Repair Person Name Role Phone Unavailable Primary Care Provider Unavailabl e Encounter Details Date Type Department Care Team (Late st Contact Info) Description 10/06/2020 Transcribed Document [facility] [place] [address] [place] [address] ProviderPat MD [address] [place] [address] Social History Tobacco Use Types [...] - Pat ProviderMD - 10/06/2020 12:27 PM JIG BOX OPERATOR [facility] Main OR Preop Summary Primary Physician: MARION COBOS MD-SNU Finalized Date/Time: 10/06/20 15:23:47 Pt. Name: BUSHRA LUNDBERG D.O.B./Sex: 1965 Female Med Rec #: [id number] Physician: MARION COBOS MD-SNU Financial #: [id number] Pt. Type: O Room/Bed: Admit/Disch: 10/06/20 08:45:00 - Institution: [facility] PreOp Case Times Entry 1 In Preop 10/06/20 09:48:00 Ready for Holding n/a Room Patient Ready for 10/06/20 10:45:00 Surgery Patient Out of Preop 10/06/20 11:55:00 Patient Out of n/a Holding Room Last Modified By: Radha Hawley RN 10/06/20 12:19:10 [facility] PreOp Case Times Audit 10/06/20 12:19:10 Clinical Rehab Specialist: BRITTON Modifier: RAMEZALR <+> 1 Patient Out of Preop Finalized By: Radha Hawley, RN Document Signatures Signed By: Radha Hawley RN 10/06/20 15:23 Electronically signed by Ashwin [facility] Conversion Casting Machine Operator Automatic Cerner at 01/07/2023 7:30 PM CDT documented in this encounter Plan of Treatment Not on file documented as of this encounter Visit Diagnoses Not on filedocumented in this encounter
--- OUTSIDE RECORDS SUMMARY | 2025-04-22 08:50 | XMS_ITS | Encounter Summary ---
Author Organization [employer] ([place], [place], [place], [place]) Address [address] [place] [address] Care Team Providers Care Ride Operator Name Role Phone Unavailable Primary Care Provider Unavailabl e Encounter Details Date Type Department Care Team (Late st Contact Info) Description 04/06/2021 Transcribed Document [facility] [place] [address] ProviderPat MD [address] [place] [address] Social History Tobacco Use Types [...] ProviderMD - 04/06/2021 11:42 AM CDT [facility] Main OR IntraOp Summary Primary Physician: MARION COBOS MD-SNU Finalized Date/Time: 04/07/21 13:03:57 Pt. Name: MELANIE LUNDBERG D.O.B./Sex: 1965 Female Med Rec #: [id number] Physician: MARION COBOS MD-SNU Financial #: [id number] Pt. Type: O Room/Bed: ASA/3 Admit/Disch: 04/06/21 06:47:00 - 04/06/21 15:30:00 Institution: [facility] IntraOp Case Attendance Entry 1 Entry 2 Entry 3 Case Attendee MARION COBOS WASSON, SANDRA D RN NELSON NGUYEN, MADELEINE NEGRETE-SNU TECH Role Performed Surgeon/Proceduralist, Bacteriologist Fishery, First Scrub, First First Time In 04/06/21 [...] D, VITO MERLOS MD-ANS Role Performed Physician learning support assistant WASTE COTTON CLEANER/Nurse Paradi Tender Anesthesiologist of Record Time In 04/06/21 11:15:00 [...] ATTENDEE #1 Hema Schreiber, Robyn Sales, Diagnostic Lab Aid Role Performed Vendor Scrub, Second Molded Frames Assembler Time In 04/06/21 11:15:00 04/06/21 11:15:00 04/06/21 [...] Lydia Cordero, Rn Role Performed Scrub, First Bacteriologist Fishery, First Time In 04/06/21 11:57:00 04/06/21 12:00:00 Time Out 04/06/21 13:04:00 04/06/21 13:04:00 Procedure Cervical Discectomy Cervical Discectomy Fusion Anterior Fusion Anterior Other Attendee LUNCH RELIEF LUNCH Superficial Wound Closed By: Last Modified By: CLARK JAUREGUI RN WASSON, SANDRA D, RN 04/06/21 13:03:22 04/06/21 13:03:22 [facility] IntraOp Case Attendance Audit 04/06/21 13:03:22 Gun Numberer: WASSONSY Modifier: WASSONSY 1 <+> Time Out [...] Procedure Cervical Discectomy Fusion Anterior 04/06/21 12:05:52 Gun Numberer: WASSONSY Modifier: WASSONSY <+> 11 Case Attendee <+> 11 Role Performed <+> 11 Time In <+> 11 Procedure <+> 11 Other Attendee 04/06/21 11:57:37 Gun Numberer: WASSONSY Modifier: WASSONSY <+> 10 Case Attendee <+> 10 Role Performed <+> 10 Time In <+> 10 Procedure <+> 10 Other Attendee 04/06/21 11:57:14 Gun Numberer: WASSONSY Modifier: WASSONSY 1 <*> Procedure Cervical [...] Procedure Cervical Discectomy Fusion Anterior 04/06/21 11:53:13 Gun Numberer: WASSONSY Modifier: WASSONSY 1 <*> Procedure Cervical [...] Role Performed <+> 9 Procedure 04/06/21 11:48:20 Gun Numberer: WASSONSY Modifier: WASSONSY <+> 8 Case Attendee <+> 8 Role Performed <+> 8 Time Out <+> 8 Procedure 04/06/21 11:47:37 Gun Numberer: WASSONSY Modifier: WASSONSY 1 <+> Time In [...] Anterior 7 <*> Other Attendee BRANDYN RICHARDSON [facility] IntraOp Case Times Entry 1 Patient In Room Time 04/06/21 11:15:00 Out Room Time 04/06/21 13:04:00 Anesthesia Start Time 04/06/21 11:15:00 Stop Time 04/06/21 13:04:00 Surgery / Procedure Times Start Time 04/06/21 11:42:00 Stop Time 04/06/21 12:57:00 Last Modified By: CLARK JAUREGUI RN 04/06/21 13:03:11 [facility] IntraOp Case Times Audit 04/06/21 13:03:11 Gun Numberer: HANG Modifier: WASSONSY <+> 1 Out Room Time <+> 1 Stop Time <+> 1 Stop Time 04/06/21 11:46:55 Gun Numberer: HANG Modifier: WASSONSY <+> 1 Start Time [facility] IntraOp Cautery Entry 1 Entry 2 ESU Identification Cautery Type Monopolar ESU BiPolar ESU Cautery Type Comments ID Number [id number] ID Type Hospital Number Hospital Number Cautery [...] CLARK JAUREGUI RN 04/06/21 11:49:21 04/06/21 11:50:42 [facility] IntraOp Cautery Audit 04/06/21 11:50:42 Gun Numberer: HANG Modifier: JUVENTINOSY 2 <*> ID Number [id number] [facility] IntraOp Communication Entry 1 Communication To Family/Significant other Comment START Communication By CLARK JAUREGUI RN Date and Time 04/06/21 11:46:00 Last Modified By: CLARK JAUREGUI RN 04/06/21 11:47:05 [facility] IntraOp Counts Verification Entry 1 Procedure Cervical Discectomy Fusion Anterior Count Info Count Type Sponge, Sharps, Miscellaneous Counts Verification Baseline/pre-procedure Sequence Count Results Not Applicable Counts Performed By Count Performed By Hema Schreiber, SARAH (Scrub) Count Performed By CLARK JAUREGUI RN (RN) Last Modified By: CLARK JAUREGUI RN 04/06/21 11:48:27 [facility] IntraOp Counts Verification Audit 04/06/21 11:48:27 Gun Numberer: WASSONSY Modifier: WASSONSY 1 <*> Procedure Cervical Discectomy Fusion Anterior 1 <+> Count Performed By (Scrub) [facility] IntraOp Counts Final Entry 1 Procedure Cervical Discectomy Fusion Anterior Final Count Info Count Type Sponge, Sharps, Miscellaneous Counts Verification Skin Closure/end of Sequence procedure Count Results Correct, surgeon notified Counts Performed By Count Performed By Hema Schreiber CST (Scrub) Count Performed By CLARK JAUREGUI, RN (RN) Last Modified By: CLARK JAUREGUI RN 04/06/21 12:49:55 [facility] IntraOp Counts Final Audit 04/06/21 12:49:55 Gun Numberer: WASSONSY Modifier: WASSONSY 1 <*> Procedure Cervical Discectomy Fusion Anterior 1 <+> Count Performed By (Scrub) 1 <+> Count Performed By (RN) [facility] IntraOp Cultures and Spec Summary Entry 1 Cultrures and Specimens Specimen Ordered: Yes Test(s) Routine/Path-Lab Requested/Final Disposition Last Modified By: CLARK JAUREGUI RN 04/06/21 11:47:49 General Comments: A. EXPLANTED HARDWARE [facility] IntraOp Departure from OR Entry 1 Integumentary Assessment Integumentary WDL Assessment WDL Transfer/Handoff Transfer to PACU Phase I Handoff Method Phone call Post-op Transport Stretcher/Gurney Via Patient Transport LEANNE RUIZ, NA, Accompanied by HEBERT GAMBOA Last Modified By: CLARK JAUREGUI RN 04/06/21 12:06:34 [facility] IntraOp Departure from OR Audit 04/06/21 12:06:34 Gun Numberer: HANG Modifier: WASSONSY <+> 1 Patient Transport Accompanied by [facility] IntraOp Dressing and Packing Entry 1 Type Dressing Location NECK Wound Dressing Item [place] Applied By HEBERT GAMBOA Other Comments OINTMENT, COVADERM Last Modified By: CLARK JAUREGUI RN 04/06/21 12:07:25 [facility] IntraOp Fire Risk Assessment Entry 1 Fire Info Surgical Site or 1- Yes Incision Above the Xyphoid Open O2 Source 0- No (Mask or Cannula) Available Ignition 1- Yes (ESU, Laser, Light Source) Fire Risk 2 Assessment Score Fire Score Fire Risk Yes Assessment Complete Fire Risk CLARK JAUREGUI, strategy director Verified By Fire Risk 04/06/21 11:14:00 Assessment Verified Date/Time Fire Risk Standard Fire Yes Safety Precautions Followed Last Modified By: CLARK JAUREGUI RN 04/06/21 11:50:47 [facility] IntraOp Fire Risk Assessment Audit 04/06/21 11:50:47 Gun Numberer: HANG Modifier: WASSONSY <+> 1 Fire Risk Assessment Verified By [facility] IntraOp General Case Shoe Fitter 1 Case Information OR OR 11 [facility] Case Level 1 Room Verified Yes Wound Class I - Clean Specialty Neurosurgery Anesthesia Type General ASA Class 3 Diagnosis Preop Diagnosis CERVICAL RADICULOPATHY Postop Same As Preop No Postop Diagnosis SEE MD POST OP NOTE Last Modified By: CLARK JAUREGUI RN 04/06/21 11:49:40 [facility] IntraOp General Case Data Audit 04/06/21 11:49:40 Gun Numberer: HANG Modifier: WASSONSY 1 <*> OR OR 09 [facility] 1 <+> ASA Class 1 <+> Room Verified [facility] IntraOp Implant Log Entry 1 Entry 2 Entry 3 Type Tissue Implant Implant (Synthetic) Implant (Synthetic) (Biologic) Implant Log Implant Type Hardware Hardware Tissue Implant Type Bone Implant BONE VIVIGEN FORMABLE CAGE EIT CIF H 6MM 8DEG PLT ANT SKYLN HYBRD Identification [id number] Description Implant Quantity 1 1 1 Implant Site CERIVAL CERVICAL SPINE OP SITE Implant Identification Model Number Implant [id number] Identification Serial Number Implant [id number] Identification Lot Number Implant Lifenet:Lifenet J&J:Depuy:Depuy Spine J&J:Depuy:Depuy Spine Identification Transplant Srv Strip Catcher Name: Implant [id number] Identification Catalog Number Implant Size Implant Has an Yes Yes Expiration Date Implant Expiration 02/23/22 02/14/25 Date Wasted Radioactive Material Time Implanted Tissue Implant Continue for Tissue Implant Documentation Tissue Identification Number Graft Prep Per Yes Strip Catcher Instructions: Tissue Preparation Thawed Method: Reconstitution Solution: Reconstitution Solution Lot Number Reconstitution Solution Expiration Date: Thawing Solution NACL Thawing Solution [id number] Lot Number Thawing Solution 12/16/22 Expiration Date Preparation Materials, Other Preparation Materials, Other Lot Number Preparation Materials, Other Expiration Date Tissue Heam Schreiber, SARAH Prepared/Processed By Strip Catcher Yes Paperwork Completed Implant Type Comment Last Modified By: CLARK JAUREGUI RN WASSON, SANDRA D, RN WASSON, SANDRA D, RN 04/06/21 12:38:32 04/06/21 12:38:32 04/06/21 12:49:39 Entry 4 Entry 5 Type Implant (Synthetic) Implant (Synthetic) Implant Log Implant Type Hardware Hardware Tissue Implant Type Implant SCR SKYLN VARI-OVSZ SCR SKYLN VARI SD Identification [id number] Description Implant Quantity 6 2 Implant Site OP SITE OP SITE Implant Identification Model Number Implant Identification Serial Number Implant Identification Lot Number Implant J&J:Depuy:Depuy Spine J&J:Depuy:Depuy Spine Identification Strip Catcher Name: Implant [id number] [id number] Identification Catalog Number Implant Size Implant Has an Expiration Date Implant Expiration Date Wasted Radioactive Material Time Implanted Tissue Implant Continue for Tissue Implant Documentation Tissue Identification Number Graft Prep Per Strip Catcher Instructions: Tissue Preparation Method: Reconstitution Solution: Reconstitution Solution Lot Number Reconstitution Solution Expiration Date: Thawing Solution Thawing Solution Lot Number Thawing Solution Expiration Date Preparation Materials, Other Preparation Materials, Other Lot Number Preparation Materials, Other Expiration Date Tissue Prepared/Processed By Strip Catcher Paperwork Completed Implant Type Comment Last Modified By: CLARK JAUREGUI RN WASSON, SANDRA D, RN 04/06/21 12:49:39 04/06/21 12:49:39 [facility] IntraOp Implant Log Audit 04/06/21 12:49:39 Gun Numberer: HANG Modifier: JENNIFERTONYROSALIA <+> 3 Implant Identification Description <+> 3 Implant Identification Strip Catcher Name: <+> 3 Implant Site <+> 3 Implant Quantity <+> 3 Implant Identification Catalog Number <+> 3 Implant Type <+> 3 Type <+> 4 Implant Identification Description <+> 4 Implant Identification Strip Catcher Name: <+> 4 Implant Site <+> 4 Implant Quantity <+> 4 Implant Identification Catalog Number <+> 4 Implant Type <+> 4 Type <+> 5 Implant Identification Description <+> 5 Implant Identification Strip Catcher Name: <+> 5 Implant Site <+> 5 Implant Quantity <+> 5 Implant Identification Catalog Number <+> 5 Implant Type <+> 5 Type [facility] IntraOp Intraoperative Assessment Entry 1 Handoff Method [...] Modified By: CLARK JAUREGUI RN 04/06/21 11:49:53 [facility] IntraOp Intraoperative Equipment Entry 1 Type Equipment Equipment Equipment Kg Suction System ID Number [id number] Setting 160 MM HG Intraop Monitoring Electrocardiogram Five lead placement (ECG) Electrode Placement Blood Pressure Non-Invasive BP Device Source Blood Pressure Arm, left upper Location Pulse Oximeter Hand, right Probe Site Antiembolic Devices Antiembolic Devices Sequential compression device, knee high Antiembolic Device Bilateral Location Antiembolic Device 24079 ID Number Scopes Photo/Video Documentation Photo No Video No Last Modified By: CLARK JAUREGUI RN 04/06/21 11:50:32 [facility] IntraOp Medication Admin Entry 1 Entry 2 Entry 3 Medication/Irrigant lidocaine 1% w/ SPNG SURGFOAM thrombin 5000units epinephrine 1:100,000 [id number] topical powder - 30ml vial - [id number] Combo Med List Time Administered Route of [...] Entry 4 Medication/Irrigant vancomycin 1Gm vial - [id number] Combo Med List Time Administered Route of ADDED TO NS IRRIGATIION Administration Dose Dose 1 Unit of Measure gram Volume Administered By MARION COBOS MD-SNRaquel Procedure Irrigation Irrigant Volume In Irrigant Volume Out Last Modified By: CLARK JAUREGUI RN 04/06/21 11:55:23 [facility] IntraOp Patient Positioning Entry 1 Procedure Cervical [...] Modified By: CLARK JAUREGUI RN 04/06/21 11:52:27 [facility] IntraOp Sign In Entry 1 Patient, Site, [...] Modified By: CLARK JAUREGUI RN 04/06/21 11:55:41 [facility] IntraOp Sign Out Entry 1 RN Confirmation [...] Modified By: CLARK JAUREGUI RN 04/06/21 13:03:21 [facility] IntraOp Sign Out Audit 04/06/21 13:03:21 Gun Numberer: HANG Irizarry: JUVENTINOSY <+> 1 RN Sign Out Signature Date/Time [facility] IntraOp Skin Prep Entry 1 Procedure Cervical Discectomy Fusion Anterior Prescribed Yes Pre-Surgical Prep Completed Prep Area OP SITE AFTER ALCOHOL AND HIBICLENS PREP PER DR PAPITO Intraop Prep Integumentary WDL Assessment WDL Prep Agents Alcohol, Chlorhexadine gluconate, DuraPrep Prep by CLARK JAUREGUI, RN Hair Removal Methods No hair removal performed Last Modified By: CLARK JAUREGUI RN 04/06/21 11:52:57 [facility] IntraOp Surgical Procedures Entry 1 Procedure Cervical Discectomy Fusion Anterior Additional (C6-7 ACDF WITH Procedure REVISION OF C4-6 Description HARDWARE) Primary Procedure Yes Primary Surgeon MARION COBOS MD-SNU Start 04/06/21 11:42:00 Stop 04/06/21 12:57:00 Anesthesia Type General Specialty Neurosurgery Wound Class I - Clean Last Modified By: CLARK JAUREGUI RN 04/06/21 13:03:14 General Comments: ANCEF 2 GRAM IV PER ANESTHESIA [facility] IntraOp Surgical Procedures Audit 04/06/21 13:03:14 Gun Numberer: HANG Modifier: WASSONSY 1 <*> Stop 1 <*> Stop [facility] IntraOP Time Out Entry 1 Procedure to [...] Modified By: CLARK JAUREGUI RN 04/06/21 11:44:18 [facility] IntraOp X-Ray and Images Entry 1 X-Ray/Imaging Type Fluoroscopy Fluoroscopy Type C-Arm Site OP SITE Strategy Director Name Robyn Kumar, Diagnostic Lab Aid Last Modified By: CLARK JAUREGUI RN 04/06/21 [...]
--- OUTSIDE RECORDS SUMMARY | 2025-04-22 08:50 | XMS_ITS | Encounter Summary ---
Author Organization [employer] ([place], [place], [place], [place]) Address [address] [place] [address] Care Team Providers Care Custodial Services Manager Name Role Phone Unavailable Primary Care Provider Unavailabl e Encounter Details Date Type Department Care Team (Late st Contact Info) Description 04/06/2021 Transcribed Document [facility] [place] [address] ProviderPat MD [address] [place] [address] Social History Tobacco Use Types [...] Pat ProviderMD - 04/06/2021 11:42 AM CDT [facility] Main OR PACU Summary Primary Physician: MARION COBOS MD-SNRaquel Finalized Date/Time: 04/06/21 14:03:32 Pt. Name: BUSHRA LUNDBERG D.O.B./Sex: 1965 Female Med Rec #: [id number] Physician: MARION COBOS MD-SNU Financial #: [id number] Pt. Type: O Room/Bed: ASA/3 Admit/Disch: 04/06/21 06:47:00 - Institution: [facility] Main OR PACU I Case Times Entry 1 In PACU I 04/06/21 13:05:00 Ready for PACU 04/06/21 13:55:00 Discharge Discharge from PACU 04/06/21 13:55:00 I Last Modified By: COSMO PIERRE RN 04/06/21 14:03:24 [facility] Main OR PACU I Case Times Audit 04/06/21 14:03:24 Sub Prior: [id number] Modifier: [id number] <+> 1 Ready for PACU Discharge <+> 1 Discharge from PACU I Finalized By: COSMO PIERRE RN Document Signatures Signed By: COSMO PIERRE RN 04/06/21 14:03 Electronically signed by [facility] Conversion Line Assembler Cerner at 01/07/2023 7:30 PM CDT documented in this encounter Plan of Treatment Not on file documented as of this encounter Visit Diagnoses Not on filedocumented in this encounter
--- OUTSIDE RECORDS SUMMARY | 2025-04-22 08:50 | XMS_ITS | Encounter Summary ---
Author Organization [employer] ([place], [place], [place], [place]) Address [address] [place] [address] Care Team Providers Care Habitat Biologist Name Role Phone Unavailable Primary Care Provider Unavailabl e Encounter Details Date Type Department Care Team (Late st Contact Info) Description 10/06/2020 Transcribed Document [facility] [place] [facility] [place] [address] ProviderPat MD [address] [place] [address] Social History Tobacco Use Types [...] - Pat ProviderMD - 10/06/2020 4:28 PM AERONAUTICAL DESIGN ENGINEER Patient Education Materials Follows: Outpatient Surgery, Adult, [...] and water are not available, use hand mill laborer. ? Change your dressing as told by [...] or a bad smell. Medicines ??? Take imvz-grd-dathzyt and prescription medicines only as told by [...] 12/24/2016 Document Revised: 12/02/2018 Document Reviewed: 12/24/2016 [employer] Patient Education ? 2020 [employer]. Electronically signed by Monroe Christopher Conversion Information Assurance Manager Stacyner at 01/07/2023 7:33 PM CDT documented in this encounter Plan of Treatment Not on file documented as of this encounter Visit Diagnoses Not on filedocumented in this encounter
--- OUTSIDE RECORDS SUMMARY | 2025-04-22 08:50 | XMS_ITS | Encounter Summary ---
Author Organization [employer] ([place], [place], [place], [place]) Address [address] [place] [address] Care Team Providers Care Grease Press Helper Name Role Phone Unavailable Primary Care Provider Unavailabl e Encounter Details Date Type Department Care Team (Late st Contact Info) Description 10/06/2020 Transcribed Document [facility] [place] [facility] [place] [address] ProviderPat MD [address] [place] [address] Social History Tobacco Use Types [...] - Pat ProviderMD - 10/06/2020 12:27 PM REGIONAL DIRECTOR OF ADMISSIONS [facility] Main OR PACU Summary Primary Physician: MARION COBOS MD-SNU Finalized Date/Time: 10/06/20 15:35:11 Pt. Name: BUSHRA LUNDBERG D.O.B./Sex: 1965 Female Med Rec #: [id number] Physician: MARION COBOS MD-MIKO Financial #: [id number] Pt. Type: O Room/Bed: Admit/Disch: 10/06/20 08:45:00 - Institution: [facility] Main OR PACU I Case Times Entry 1 In PACU I 10/06/20 13:20:00 Ready for PACU 10/06/20 14:25:00 Discharge Discharge from PACU 10/06/20 15:25:00 I Last Modified By: CINDY AGUIRRE RN 10/06/20 15:34:39 [facility] Main OR PACU Acuity Entry 1 Start Time 10/06/20 14:25:00 Stop Time 10/06/20 15:25:00 Acuity Level [facility] PACU Acuity I Last Modified By: CINDY AGUIRRE RN 10/06/20 15:35:08 Finalized By: CINDY AGUIRRE, RN Document Signatures Signed By: CINDY AGUIRRE RN 10/06/20 15:35 Electronically signed by [facility] Conversion Javascript Ui Developer Cerner at 01/07/2023 7:31 PM CDT documented in this encounter Plan of Treatment Not on file documented as of this encounter Visit Diagnoses Not on filedocumented in this encounter
--- OUTSIDE RECORDS SUMMARY | 2025-04-22 08:50 | XMS_ITS | Encounter Summary ---
Author Organization [employer] ([place], [place], [place], [place]) Address [address] [place] [address] Care Team Providers Care Modular Set Crew Member Name Role Phone Unavailable Primary Care Provider Unavailabl e Encounter Details Date Type Department Care Team (Late st Contact Info) Description 04/06/2021 Transcribed Document [facility] [place] [facility] [place] [address] ProviderPat MD [address] [place] [address] Social History Tobacco Use Types [...] Ministry Provided to : Patient, Family/Significant other Buddhism Preference : Jain ([employer] [place]) ARMIN LAL - 04/06/2021 11:16 EDT Interventions Emotional Support : Empathic/Engaged listening, Family/Significant other supported, Feelings expressed Spiritual and Buddhism : Prayer shared, Spiritual/Buddhism support provided Change, Adjustment and Loss : Relationships/Community/Support system discussed ARMIN LAL - 04/06/2021 11:16 EDT Outcomes Affect/Behavior Changed : Comforted Appreciation Expressed : Yes Thoughts, Feelings and Emotions Exp. : Yes Supportive Relationships Described : Family, Caodaism family HEAD, ARMIN - 04/06/2021 11:16 EDT Electronically signed by Monroe Christopher Conversion Director Of Financial Aid Cerner at 01/07/2023 7:35 PM CDT documented in this encounter Plan of Treatment Not on file documented as of this encounter Visit Diagnoses Not on filedocumented in this encounter
--- OUTSIDE RECORDS SUMMARY | 2025-04-22 08:50 | XMS_ITS | Encounter Summary ---
Author Organization [employer] ([place], [place], [place], [place]) Address [address] [place] [address] Care Team Providers Care Nut And Bolt Assembler Name Role Phone Unavailable Primary Care Provider Unavailabl e Encounter Details Date Type Department Care Team (Late st Contact Info) Description 04/06/2021 Transcribed Document [facility] [place] [address] ProviderPat MD [address] [place] [address] Social History Tobacco Use Types [...] and water are not available, use hand data modeling architect. ? Change your dressing as told [...] Managing pain, stiffness, and swelling ??? Take apix-cjy-jrpvzxr and prescription medicines only as told by [...] keep your urine pale yellow. ? Take cate-kkk-karvazg or prescription medicines. ? Eat foods that [...] provider. Document Revised: 05/29/2019 Document Reviewed: 05/29/2019 [employer] Patient Education ? 2020 [employer] Pharmacology General Anesthesia, Adult, Care After [...] activities are safe for you. ??? Take arwb-ytb-dgftatj and prescription medicines only as told by [...] provider. Document Revised: 09/06/2018 Document Reviewed: 04/19/2018 [employer] Patient Education ? 2020 [employer]. documented in this encounter Plan of Treatment Not on file documented as of this encounter Visit Diagnoses Not on filedocumented in this encounter
--- OUTSIDE RECORDS SUMMARY | 2025-04-22 08:50 | XMS_ITS | Encounter Summary ---
Author Organization [employer] ([place], [place], [place], [place]) Address [address] [place] [address] Care Team Providers Care Web Feeder Name Role Phone Unavailable Primary Care Provider Unavailabl e Encounter Details Date Type Department Care Team (Late st Contact Info) Description 10/05/2020 Transcribed Document [facility] [place] Family Medicine [facility] [place] [address] ProviderPat MD [address] [place] [address] Social History Tobacco Use Types [...] - Historical ProviderMD - 10/05/2020 4:24 PM OFFICE MACHINES TEACHER PAT Adult Entered On: 10/05/2020 16:28 EST Performed On: 10/05/2020 16:24 EST by Radha Hawley RN Height and Weight, Clinical Dosing Height Source : Measured Height Entry Format : [place] Height, Feet : 5 ft(Converted to: 152 cm, 60 Inch) Height, Inches : 3 Inch(Converted to: 0 ft 3 Inch, 7.62 cm) Clinical Height : 160.02 cm Weight Source : Standing scale Weight Entry Format : [place] Clinical Dosing Weight : 110.91 kg Weight, Pounds : 244 lb Body Surface Area (BSA) : 2.11 m2 Body Mass Index : 43.3 kg/m2 (>HHI) [place] Body Weight : 52 kg Radha Hawley [...] Radha Hawley RN - 10/05/2020 16:24 EST [place] Suicide Severity Rating Scale (C-SSRS) CSSRS Past [...] Support Person/Pt Rep Name : Raymond Lundberg [phone] Want Family/Rep/Phys Notified of Admit : No Emergency Contact #1 : x Emergency Contact #1 Phone Number : x Emergency Contact #1 Relationship : x Emergency Contact #2 : x Emergency Contact #2 Phone Number : x Emergency Contact #2 Relationship : x Chief Complaint : x Primary Language : Sierra Leonean Communication Barrier : None Manager Assisted Living Needed : No Radha Hawley RN - [...] EST Electronically signed by Monroe Christopher Conversion Social Media Community Manager Cerner at 01/07/2023 7:35 PM CDT documented in this encounter Plan of Treatment Not on file documented as of this encounter Visit Diagnoses Not on filedocumented in this encounter
--- OUTSIDE RECORDS SUMMARY | 2025-04-22 08:50 | XMS_ITS | Encounter Summary ---
Author Organization [employer] ([place], [place], [place], [place]) Address [address] [place] [address] Care Team Providers Care Quarryman Name Role Phone Unavailable Primary Care Provider Unavailabl e Encounter Details Date Type Department Care Team (Late st Contact Info) Description 04/01/2021 Transcribed Document [facility] [place] Family Medicine [facility] [place] [address] ProviderPat MD [address] [place] [address] Social History Tobacco Use Types [...] Source : Measured Height Entry Format : [place] Height, Feet : 0 ft(Converted to: 0 cm, 0 Inch) Height, Inches : 63.5 Inch(Converted to: 5 ft 3 Inch, 161.29 cm) Clinical Height : 161.29 cm Weight Source : Standing scale Weight Entry Format : [place] Clinical Dosing Weight : 110.94 kg Weight, Pounds : 244 lb Weight, Ounces : 1 oz Body Surface Area (BSA) : 2.12 m2 Body Mass Index : 42.6 kg/m2 (>HHI) [place] Body Weight : 53 kg ROBERT HOLBROOK RN - 04/04/2021 8:07 EDT Health Histories Smoking Status : Former smoker, quit more than 30 days ago Smokeless Tobacco Status : Never Implant/Device Type, Sheet Rock Sander and Model : hardware in neck Anthony [...] : Yes Spiritual/Cultural Needs Comment : 04/06 Shinto Preference : Synagogue ([employer] [place]) Spiritual/Cultural Needs Comment : 04/06 Anthony Cullen Rn - 04/01/2021 9:58 EDT [place] Suicide Severity Rating Scale (C-SSRS) CSSRS Past [...] Info Legal Guardian : Friend Support Person/Patient Director Construction Services : Yes Support Person/Pt Rep Name : Lena Chapman - friend Support Person/Pt Rep Contact Information : [phone] Want Family/Rep/Phys Notified of Admit : No Emergency Contact #1 : ` Emergency Contact #1 Phone Number : ` Emergency Contact #1 Relationship : ` Emergency Contact #2 : ` Emergency Contact #2 Phone Number : ` Emergency Contact #2 Relationship : ` Primary Language : Lao Communication Barrier : None Design Teacher Needed : No Anthony Cullen Rn - [...] EDT Electronically signed by Monroe Christopher Conversion Home Care And Home Health Aides Teacher Cerner at 01/07/2023 7:36 PM CDT documented in this encounter Plan of Treatment Not on file documented as of this encounter Visit Diagnoses Not on filedocumented in this encounter
--- OUTSIDE RECORDS SUMMARY | 2025-04-22 08:50 | XMS_ITS | Clinical Summary ---
Author Organization [employer] ([place], [place], [place], [place]) Address [address] [place] [address] Care Team Providers Care Nail Assembly Machine Operator Name Role Phone Unavailable Primary [...]
--- OUTSIDE RECORDS SUMMARY | 2025-04-22 08:50 | XMS_ITS | Encounter Summary ---
Author Organization [employer] ([place], [place], [place], [place]) Address [address] [place] [address] Care Team Providers Care Head Refrigeration Engineer Name Role Phone Unavailable Primary Care Provider Unavailabl e Encounter Details Date Type Department Care Team (Late st Contact Info) Description 10/05/2020 Transcribed Document [facility] [place] [address] [place] [address] ProviderPat MD [address] [place] [address] Social History Tobacco Use Types [...] - Historical ProviderMD - 10/05/2020 1:54 PM CURATORIAL ASSISTANT UM Authorization Entered On: 10/05/2020 13:54 EST Performed On: 10/05/2020 13:54 EST by REKHA BURNHAM Thread Twister Primary Insurance Authorization Authorization and Policy Numbers : Insurance 1 Health Plan: [employer] [place] Policy Number: [id number] Authorization Number: Authorization Comments-Primary : pt is bruno for OUT PT Cervical Discectomy Fusion Anterior on Sun10-06-20 Historical Authorization Comments-Primary : No Authorization Comments Found REKHA BURNHAM, Thread Twister - 10/05/2020 13:54 EST Electronically signed by Ashwin [facility] Conversion System Safety Engineer Cerner at 01/07/2023 7:37 PM CDT documented in this encounter Plan of Treatment Not on file documented as of this encounter Visit Diagnoses Not on filedocumented in this encounter
--- OUTSIDE RECORDS SUMMARY | 2025-04-22 08:50 | XMS_ITS | Encounter Summary ---
Author Organization [employer] ([place], [place], [place], [place]) Address [address] [place] [address] Care Team Providers Care Silk Screen Cutter Name Role Phone Unavailable Primary Care Provider Unavailabl e Encounter Details Date Type Department Care Team (Late st Contact Info) Description 10/06/[address] [facility] [place] Family Medicine [address] [place] [address] ProviderPat MD [address] [place] [address] Social History Tobacco Use Types [...] - Pat ProviderMD - 10/06/2020 4:32 PM BRAND AMBASSADOR PROMOTIONAL MODEL [facility] [place] [address] BUSHRA LUNDBERG :1965 Visit Time:10/06/2020 What [...] TIMES A DAY WHILE ON PAIN MEDICATION [facility] ACDF INSTRUCTIONS Discharge Follow Up Instructions: f/u 4-5 weeks post op with AP/lateral x-rays of the cervical spine. Follow-Up Appointments Follow Up with MARION SIMON When Within 1 month Comments Follow-up as instructed [facility] AT [facility] THEN FOLLOW UP WITH dr simon afterwards Where: [address] (SUNDAY ONLY) [place] [address]- [employer] (1) Medications What How Much When Instructions [...] and water are not available, use hand clay press operator. ? Change your dressing as told by [...] or a bad smell. Medicines ??? Take hxyh-key-clpbbfx and prescription medicines only as told by [...] 12/24/2016 Document Revised: 12/02/2018 Document Reviewed: 12/24/2016 [employer] Patient Education ?? 2020 [employer] Emergency Awareness and Preventative Care STROKE [...] Assistance with quitting is available by contacting 4-014-MOVS-NOW. This is a free resource providing counseling, [...] was given the opportunity to ask questions. Patient/Chamfering Machine Operator Name: Patient/Chamfering Machine Operator Signature: Relationship to Patient: Clinician/Hospital Chamfering Machine Operator Signature: Date: Electronically signed by Ashwin, [facility] Conversion Coordinator Of Rehabilitation Services [place] at 01/07/2023 7:29 PM CDT documented in this encounter Plan of Treatment Not on file documented as of this encounter Visit Diagnoses Not on filedocumented in this encounter
--- OUTSIDE RECORDS SUMMARY | 2025-04-22 08:50 | XMS_ITS | Encounter Summary ---
Author Organization [employer] ([place], [place], [place], [place]) Address [address] [place] [address] Care Team Providers Care Assistant Professor Of Theater Name Role Phone Unavailable Primary Care Provider Unavailabl e Encounter Details Date Type Department Care Team (Late st Contact Info) Description 04/06/2021 Transcribed Document [facility] [place] Family Medicine [facility] [place] [address] ProviderPat MD [address] [place] [address] Social History Tobacco Use Types [...] Pat ProviderMD - 04/06/2021 11:42 AM CDT [facility] Main OR Preop Summary Primary Physician: MARION COBOS MD-SNU Finalized Date/Time: 04/06/21 12:32:08 Pt. Name: BUSHRA LUNDBERG D.O.B./Sex: 1965 Female Med Rec #: [id number] Physician: MARION COBOS MD-SNU Financial #: [id number] Pt. Type: O Room/Bed: ASA/3 Admit/Disch: 04/06/21 06:47:00 - Institution: [facility] PreOp Case Times Entry 1 In Preop 04/06/21 08:53:00 Ready for Holding n/a Room Patient Ready for 04/06/21 10:00:00 Surgery Patient Out of Preop 04/06/21 11:11:00 Patient Out of n/a Holding Room Last Modified By: ANA LORD RN 04/06/21 12:32:01 [facility] PreOp Case Times Audit 04/06/21 12:32:01 Middle [employer] Reading Teacher: KODAK Modifier: [place] <+> 1 Patient Out of Preop 04/06/21 10:12:28 Middle School Reading Teacher: KODAK Modifier: [place] 1 <*> Patient Ready for Surgery 04/06/21 10:12:00 Finalized By: ANA LORD RN Document Signatures Signed By: ANA LORD RN 04/06/21 12:32 Electronically signed by Ashwin [facility] Conversion Ramp Agent Cerner at 01/07/2023 7:30 PM CDT documented in this encounter Plan of Treatment Not on file documented as of this encounter Visit Diagnoses Not on filedocumented in this encounter
--- OUTSIDE RECORDS SUMMARY | 2025-04-22 08:50 | XMS_ITS | Encounter Summary ---
Author Organization [employer] ([place], [place], [place], [place]) Address [address] [place] [address] Care Team Providers Care Leather Tooler Name Role Phone Unavailable Primary Care Provider Unavailabl e Encounter Details Date Type Department Care Team (Late st Contact Info) Description 04/06/2021 Transcribed Document [facility] [place] [address] [place] [address] ProviderPat MD [address] [place] [address] Social History Tobacco Use Types [...] Pat ProviderMD - 04/06/2021 2:13 PM CDT [facility] [address] BUSHRA ABDI :1965 Visit Time:04/06/2021 [...] Comments Follow-up appointment at 9:15am Where: [address] (SUNDAY ONLY) [place] [address]- Medications What How Much When Instructions Next [...] activities are safe for you. ??? Take ezvl-pjz-xfplgzr and prescription medicines only as told by [...] provider. Document Revised: 09/06/2018 Document Reviewed: 04/19/2018 [employer] Patient Education ?? 2020 [employer] Anterior Cervical Diskectomy and Fusion, Care [...] and water are not available, use hand concrete pump operator helper. ? Change your dressing as told by [...] Managing pain, stiffness, and swelling ??? Take mwfi-qvg-rqvdylt and prescription medicines only as told by [...] keep your urine pale yellow. ? Take srkw-xxn-vquxlqt or prescription medicines. ? Eat foods that [...] provider. Document Revised: 05/29/2019 Document Reviewed: 05/29/2019 [employer] Patient Education ?? 2020 [employer]. Emergency Awareness and Preventative Care STROKE is [...] Assistance with quitting is available by contacting 3-937-BIGW-NOW. This is a free resource providing counseling, [...] ) Urine Bilirubin Dipstick: Negative Urine Specific [place]: 1.012 -- Normal range between ( 1.005 [...] was given the opportunity to ask questions. Patient/Glass Belt Sander Name: Patient/Glass Belt Sander Signature: Relationship to Patient: Clinician/Hospital Glass Belt Sander Signature: Date: Electronically signed by Interface, [facility] Conversion Practice Coordinator Armen at 01/07/2023 7:35 PM CDT documented in this encounter Plan of Treatment Not on file documented as of this encounter Visit Diagnoses Not on filedocumented in this encounter
--- OUTSIDE RECORDS SUMMARY | 2025-04-22 08:50 | XMS_ITS | Encounter Summary ---
Author Organization [employer] ([place], [place], [place], [place]) Address [address] [place] [address] Care Team Providers Care Molder Vacuum Name Role Phone Unavailable Primary Care Provider Unavailabl e Encounter Details Date Type Department Care Team (Late st Contact Info) Description 04/06/2021 Transcribed Document [facility] [address] [facility] [address] [place] [address] Srinivas Melendez MD [address] [place] [address] Social History Tobacco Use Types [...] Problems PN (peripheral neuropathy) / SNOMED CT 538594735 / Confirmed Neck pain / SNOMED CT 351456268 / Confirmed Hypothyroid / SNOMED CT 42463688 / Confirmed HTN (hypertension) / SNOMED CT 2898971214 / Confirmed HLD (hyperlipidemia) / SNOMED CT 06293959 / Confirmed GERD (gastroesophageal reflux disease) / SNOMED CT 705971260 / Confirmed Depression / SNOMED CT 45043817 / Confirmed Back pain / SNOMED CT 794276549 / Confirmed At risk for sleep apnea / IMO 83005317 / Confirmed Anxiety / SNOMED CT 28752384 / Confirmed, Active Problems (10) Anxiety At [...] RUE weakness, LLE weakness. Integumentary: Warm, Dry, [place]. Neurologic: Alert, Oriented. Psychiatric: Cooperative, Appropriate mood [...]
--- OUTSIDE RECORDS SUMMARY | 2025-04-22 08:50 | XMS_ITS | Encounter Summary ---
Author Organization [email or web address] ([place], [place], [place], [place]) Address [address] [place] [address] Care Team Providers Care Personal Lines Account Manager Name Role Phone Unavailable Primary Care Provider Unavailabl e Encounter Details Date Type Department Care Team (Late st Contact Info) Description 10/06/2020 Transcribed Document [facility] [place] [facility] [place] [address] ProviderPat MD [address] [place] [address] Social History Tobacco Use Types [...] - Pat ProviderMD - 10/06/2020 12:27 PM RN [facility] Main OR PostOp Summary Primary Physician: MARION COBOS MD-SNU Finalized Date/Time: 10/06/20 17:50:53 Pt. Name: BUSHRA LUNDBERG D.O.B./Sex: 1965 Female Med Rec #: [id number] Physician: MARION COBOS MD-SNU Financial #: [id number] Pt. Type: O Room/Bed: Admit/Disch: 10/06/20 08:45:00 - Institution: [facility] Main OR PostOp Case Times Entry 1 In PACU II 10/06/20 15:34:00 Ready for PACU II 01/20/21 16:15:00 Discharge Discharge from PACU 10/06/20 16:43:00 II Last Modified By: JAYDA PAUL RN 10/06/20 17:46:19 Finalized By: JAYDA PAUL RN Document Signatures Signed By: JAYDA PAUL RN 10/06/20 17:50 Electronically signed by Ashwin [facility] Conversion Construction Stonemason Cerner at 01/07/2023 7:37 PM CDT documented in this encounter Plan of Treatment Not on file documented as of this encounter Visit Diagnoses Not on filedocumented in this encounter
--- OUTSIDE RECORDS SUMMARY | 2025-04-22 08:50 | XMS_ITS | Encounter Summary ---
Author Organization [employer] ([place], [place], [place], [place]) Address [address] [place] [address] Care Team Providers Care Legal Specialist Name Role Phone Unavailable Primary Care Provider Unavailabl e Encounter Details Date Type Department Care Team (Late st Contact Info) Description 10/06/2020 Transcribed Document [facility] [place] [facility] [place] [address] ProviderPat MD [facility] [place] [address] Social History Tobacco Use Types [...] - Pat ProviderMD - 10/06/2020 12:27 PM CAPABILITY LEAD [facility] Main OR IntraOp Summary Primary Physician: MARION COBOS MD-SNU Finalized Date/Time: 10/07/20 13:51:00 Pt. Name: TAMIKAMELANIEO.B./Sex: 1965 Female Med Rec #: [id number] Physician: MARION COBOS MD-SNU Financial #: [id number] Pt. Type: O Room/Bed: Admit/Disch: 10/06/20 08:45:00 - 10/06/20 16:43:00 Institution: [facility] IntraOp Case Attendance Entry 1 Entry 2 Entry 3 Case Attendee MARION COBOS WASSON, SANDRA D, RN GULLETTE, NELSON, SCRUB MD-SNU TECH Role Performed Surgeon/Proceduralist, Well Tender, First Scrub, First First Time In 10/06/20 [...] A, VITO ELIAS MD-ANS Role Performed Physician field assistant UPPER DOUBLER/Nurse Voltmeter Operator Anesthesiologist of Record Time In 10/06/20 [...] #1 JEROMY SAINI, RN Robyn Kumar, Diagnostic Back Shoe Operator Role Performed Student Well Tender, Second Bar Porter Time In 10/06/20 11:57:00 10/06/20 11:57:00 10/06/20 [...] Modified By: CLARK JAUREGUI, SAYDA 10/06/20 12:44:32 [facility] IntraOp Case Attendance Audit 10/06/20 13:22:08 Repairer Welding Systems And Equipment: WASSONSY Modifier: WASSONSY 1 <+> Time Out [...] Procedure Cervical Discectomy Fusion Anterior 10/06/20 12:44:32 Repairer Welding Systems And Equipment: WASSONSY Modifier: WASSONSY 8 <+> Time Out 8 <*> Procedure Cervical Discectomy Fusion Anterior <+> 9 Case Attendee <+> 9 Role Performed <+> 9 Procedure <+> 10 Case Attendee <+> 10 Role Performed <+> 10 Procedure <+> 10 Other Attendee 10/06/20 12:15:00 Repairer Welding Systems And Equipment: WASSONSY Modifier: WASSONSY 1 <*> Procedure Cervical [...] Procedure Cervical Discectomy Fusion Anterior 10/06/20 12:14:37 Repairer Welding Systems And Equipment: WASSONSY Modifier: WASSONSY 1 <+> Time In [...] <+> 8 Role Performed <+> 8 Procedure [facility] IntraOp Case Times Entry 1 Patient In Room Time 10/06/20 11:57:00 Out Room Time 10/06/20 13:18:00 Anesthesia Start Time 10/06/20 11:57:00 Stop Time 10/06/20 13:19:00 Surgery / Procedure Times Start Time 10/06/20 12:27:00 Stop Time 10/06/20 13:12:00 Last Modified By: CLARK JAUREGUI RN 10/06/20 13:13:09 [facility] IntraOp Case Times Audit 10/06/20 13:22:05 Repairer Welding Systems And Equipment: WASSONSY Modifier: WASSONSY <+> 1 Out Room Time <+> 1 Stop Time 10/06/20 13:13:09 Repairer Welding Systems And Equipment: WASSONSY Modifier: WASSONSY <+> 1 Stop Time 10/06/20 12:28:55 Repairer Welding Systems And Equipment: WASSONSY Modifier: WASSONSY <+> 1 Start Time [facility] IntraOp Cautery Entry 1 Entry 2 ESU Identification Cautery Type Monopolar ESU BiPolar ESU Cautery Type Comments ID Number [id number] ID Type Hospital Number Hospital Number Cautery [...] CLARK WATSON RN 10/06/20 12:19:57 10/06/20 12:19:57 [facility] IntraOp Cautery Audit 10/06/20 14:49:40 Repairer Welding Systems And Equipment: WASSONSY Modifier: WASSONSY 1 <*> Grounding Pad Site Right thigh 10/06/20 12:46:50 Repairer Welding Systems And Equipment: WASSONSY Modifier: WASSONSY 1 <*> Cautery Type BiPolar ESU 1 <*> Cut Setting 40 1 <*> Bipolar Setting 40 1 <+> Grounding Pad Site 1 <*> ID Number [id number] 1 <*> Grounding Pad Applied By CLARK JARUEGUI RN 2 <*> Cautery Type Monopolar ESU 2 <*> Cut Setting 40 2 <*> ID Number [id number] [facility] IntraOp Communication Entry 1 Communication To Family/Significant other Comment START Communication By JEROMY SAINI RN Date and Time 10/06/20 12:28:00 Last Modified By: CLARK JAUREGUI RN 10/06/20 12:14:46 [facility] IntraOp Communication Audit 10/06/20 12:28:37 Repairer Welding Systems And Equipment: WASSONSY Modifier: WASSONSY <+> 1 Date and Time [facility] IntraOp Counts Verification Entry 1 Procedure Cervical Discectomy Fusion Anterior Count Info Count Type Sponge, Sharps Counts Verification Baseline/pre-procedure Sequence Count Results Correct, surgeon notified Counts Performed By Count Performed By NELSON NGUYEN SCRUB (Scrub) TECH Count Performed By CLARK JAUREGUI RN (RN) Last Modified By: CLARK JAUREGUI RN 10/06/20 12:46:58 [facility] IntraOp Counts Verification Audit 10/06/20 12:46:58 Repairer Welding Systems And Equipment: WASSONSY Modifier: WASSONSY 1 <*> Procedure Cervical Discectomy Fusion Anterior 1 <*> Count Performed By (RN) NELSON NGUYEN SCRUB TECH [facility] IntraOp Counts Final Entry 1 Procedure Cervical Discectomy Fusion Anterior Final Count Info Count Type Sponge, Sharps, Miscellaneous Counts Verification Skin Closure/end of Sequence procedure Count Results Correct, surgeon notified Counts Performed By Count Performed By GULLETTE, NELSON, SCRUB (Scrub) TECH Count Performed By CLARK JARUEGUI RN (RN) Last Modified By: CLARK JAUREGUI RN 10/06/20 13:07:53 [facility] IntraOp Departure from OR Entry 1 Integumentary Assessment Integumentary WDL Assessment WDL Transfer/Handoff Transfer to PACU Phase I Handoff Method Bedside/Face to face, Phone call Handoff Reported to Jon Ruth RN Post-op Transport Stretcher/Gurney Via Patient Transport HEBERT GAMBOA, Accompanied by BERNICE BRUCE CRNA Last Modified By: CLARK JAUREGUI RN 10/06/20 12:47:18 [facility] IntraOp Departure from OR Audit 10/06/20 12:47:18 Repairer Welding Systems And Equipment: HANG Modifier: WASSONSY <+> 1 Patient Transport Accompanied by <+> 1 Handoff Reported to [facility] IntraOp Dressing and Packing Entry 1 Type Dressing Location OP SITE Wound Dressing Item Steristrip, Other Applied By HEBERT GAMBOA Other Comments MASTISOL, STERISTRIPS, COVADERM Last Modified By: CLARK JAUREGUI RN 10/06/20 12:47:50 General Comments: COVERDERM [facility] IntraOp Dressing and Packing Audit 10/06/20 12:47:50 Repairer Welding Systems And Equipment: HANG Modifier: WASSONSY 1 <*> Location 1 <*> Wound Dressing Item 1 <*> Applied By HEBERT GAMBOA 1 <*> Other Comments [facility] IntraOp Fire Risk Assessment Entry 1 Fire Info Surgical Site or 1- Yes Incision Above the Xyphoid Open O2 Source 0- No (Mask or Cannula) Available Ignition 1- Yes (ESU, Laser, Light Source) Fire Risk 2 Assessment Score Fire Score Fire Risk Yes Assessment Complete Fire Risk CLARK JAUREGUI rn admit Verified By Fire Risk 10/06/20 11:56:00 Assessment Verified Date/Time Fire Risk Standard Fire Yes Safety Precautions Followed Last Modified By: CLARK JAUREGUI RN 10/06/20 12:15:32 [facility] IntraOp Fire Risk Assessment Audit 10/06/20 12:48:04 Repairer Welding Systems And Equipment: HANG Modifier: WASSONSY 1 <*> Fire Risk Assessment Verified By JEROMY SAINI RN 1 <*> Fire Risk Assessment Verified 10/06/20 12:15:00 Date/Time 10/06/20 12:28:03 Repairer Welding Systems And Equipment: WASSONSY Modifier: WASSONSY <+> 1 Fire Risk Assessment Complete [facility] IntraOp General Case Rhinologist 1 Case Information OR OR 11 [facility] Case Level 1 Room Verified Yes Wound Class I - Clean Specialty SN Neurosurgery Anesthesia Type General ASA Class 3 Diagnosis Preop Diagnosis CERVICAL SPONDYLOSIS WITH MYELOPATHY Postop Same As Preop No Postop Diagnosis PLEASE SEE MD NOTES Last Modified By: CLARK JAUREGUI RN 10/06/20 12:16:32 [facility] IntraOp General Case Data Audit 10/06/20 12:16:32 Repairer Welding Systems And Equipment: HANG Modifier: WASSONSY 1 <*> OR OR 09 [facility] 1 <+> ASA Class 1 <+> Anesthesia Type 1 <+> Postop Same As Preop 1 <+> Postop Diagnosis 1 <+> Room Verified [facility] IntraOp Implant Log Entry 1 Entry 2 Entry 3 Type Tissue Implant Implant (Synthetic) Implant (Synthetic) (Biologic) Implant Log Implant Type Hardware Hardware Tissue Implant Type Bone Implant BONE VIVIGEN FORMABLE CAGE EIT CIF H 5MM 8D CAGE EIT CIF H 5MM 8D Identification [id number] Description Implant Quantity 1 1 1 Implant Site OP SITE OP SITE OP SITE Implant Identification Model Number Implant [id number] Identification Serial Number Implant [id number] Identification Lot Number Implant Lifenet:Lifenet J&J:Depuy:Depuy Spine J&J:Depuy:Depuy Spine Identification Transplant Srv Bath Attendant Name: Implant [id number] Identification Catalog Number Implant Size Implant Has an Yes Yes Yes Expiration Date Implant Expiration 09/14/21 11/14/23 11/14/23 Date Wasted Radioactive Material Time Implanted Tissue Implant Continue for Tissue Implant Documentation Tissue Identification Number Graft Prep Per Bath Attendant Instructions: Tissue Preparation Method: Reconstitution Solution: Reconstitution Solution Lot Number Reconstitution Solution Expiration Date: Thawing Solution Thawing Solution Lot Number Thawing Solution Expiration Date Preparation Materials, Other Preparation Materials, Other Lot Number Preparation Materials, Other Expiration Date Tissue Prepared/Processed By Bath Attendant Paperwork Completed Implant Type Comment Last Modified By: CLARK JAUREGUI RN WASSON, SANDRA D RN CLARK JAUREGUI RN 10/06/20 12:52:08 10/06/20 12:57:34 10/06/20 12:58:46 Entry 4 Entry 5 Type Implant (Synthetic) Implant (Synthetic) Implant Log Implant Type Hardware Hardware Tissue Implant Type Implant PLT ANT SKYLN HYBRD SCR SKYLN VARI SD Identification [id number] Description Implant Quantity 1 6 Implant Site OP SITE OP SITE Implant Identification Model Number Implant Identification Serial Number Implant Identification Lot Number Implant J&J:Depuy:Depuy Spine J&J:Depuy:Depuy Spine Identification Bath Attendant Name: Implant [id number] Identification Catalog Number Implant Size Implant Has an Expiration Date Implant Expiration Date Wasted Radioactive Material Time Implanted Tissue Implant Continue for Tissue Implant Documentation Tissue Identification Number Graft Prep Per Bath Attendant Instructions: Tissue Preparation Method: Reconstitution Solution: Reconstitution Solution Lot Number Reconstitution Solution Expiration Date: Thawing Solution Thawing Solution Lot Number Thawing Solution Expiration Date Preparation Materials, Other Preparation Materials, Other Lot Number Preparation Materials, Other Expiration Date Tissue Prepared/Processed By Bath Attendant Paperwork Completed Implant Type Comment Last Modified By: CLARK JAUREGUI, CLARK WATSON RN 10/06/20 13:13:00 10/06/20 13:13:00 [facility] IntraOp Implant Log Audit 10/06/20 13:13:00 Repairer Welding Systems And Equipment: WASSONSY Modifier: WASSONSY <+> 4 Implant Identification Description <+> 4 Implant Identification Bath Attendant Name: <+> 4 Implant Site <+> 4 Implant Quantity <+> 4 Implant Identification Catalog Number <+> 4 Implant Type <+> 4 Type <+> 5 Implant Identification Description <+> 5 Implant Identification Bath Attendant Name: <+> 5 Implant Site <+> 5 Implant Quantity <+> 5 Implant Identification Catalog Number <+> 5 Implant Type <+> 5 Type 10/06/20 12:58:46 Repairer Welding Systems And Equipment: WASSONSY Modifier: WASSONSY <+> 3 Implant Identification Description <+> 3 Implant Identification Lot Number <+> 3 Implant Identification Bath Attendant Name: <+> 3 Implant Expiration Date <+> 3 Implant Site <+> 3 Implant Quantity <+> 3 Implant Identification Catalog Number <+> 3 Implant Type <+> 3 Implant Has an Expiration Date <+> 3 Type 10/06/20 12:57:34 Repairer Welding Systems And Equipment: WASSONSY Modifier: WASSONSY <+> 2 Implant Identification Description <+> 2 Implant Identification Lot Number <+> 2 Implant Identification Bath Attendant Name: <+> 2 Implant Expiration Date <+> 2 Implant Site <+> 2 Implant Quantity <+> 2 Implant Identification Catalog Number <+> 2 Implant Type <+> 2 Implant Has an Expiration Date <+> 2 Type [facility] IntraOp Intraoperative Assessment Entry 1 Handoff [...] Modified By: CLARK JAUREGUI RN 10/06/20 12:48:18 [facility] IntraOp Intraoperative Assessment Audit 10/06/20 12:48:18 Repairer Welding Systems And Equipment: HANG Modifier: WASSONSY 1 <*> Skin Assessment Verified Yes 1 <*> Handoff Method Bedside/Face to face, Phone call [facility] Intra Intraoperative Equipment Entry 1 Type Equipment Equipment Equipment Kg Suction System ID Number [id number] Setting 180 MM HG Intraop Monitoring Electrocardiogram Five lead placement (ECG) Electrode Placement Blood Pressure Non-Invasive BP Device Source Blood Pressure Arm, left lower Location Pulse Oximeter Hand, right Probe Site Antiembolic Devices Antiembolic Devices Sequential compression device, knee high Antiembolic Device Bilateral Location Antiembolic Device [id number] ID Number Scopes Photo/Video Documentation Photo No Video No Last Modified By: CLARK JAUREGUI RN 10/06/20 12:49:15 [facility] IntraOp Intraoperative Equipment Audit 10/06/20 12:49:15 Repairer Welding Systems And Equipment: HANG Modifier: WASSONSY <+> 1 Photo <+> 1 Video <+> 1 ID Number <+> 1 Setting <+> 1 Electrocardiogram (ECG) Electrode Placement <+> 1 Blood Pressure Location <+> 1 Pulse Oximeter Probe Site <+> 1 Blood Pressure Source <+> 1 Antiembolic Device ID Number [facility] IntraOp Medication Admin Entry 1 Entry 2 Entry 3 Medication/Irrigant Bacitracin 50,00units lidocaine 1% w/ thrombin 5000units powder vial epinephrine 1:100,000 topical powder - 30ml vial - [id number] Combo Med List Time Administered Route of IRRIGATION LOCAL TOPICAL Administration Dose Dose 54282 10 5000 Unit of Measure units ml units Volume Administered By MARION COBOS, MARION COBOS MD-SNU MD-SNU Procedure Irrigation Irrigant Volume In Irrigant Volume Out Last Modified By: CLARK JAUREGUI, CLARK WATSON RN WASSON, SANDRA D, RN 10/06/20 12:31:00 10/06/20 12:31:00 10/06/20 12:31:00 Entry 4 Medication/Irrigant SPNG SURGFOAM [id number] Combo Med List Time Administered Route of TOPICAL Administration Dose Dose Unit of Measure Volume Administered By MARION COBOS MD-SNU Procedure Irrigation Irrigant Volume In Irrigant Volume Out Last Modified By: CLARK JAUREGUI RN 10/06/20 12:31:00 [facility] IntraOp Patient Positioning Entry 1 Procedure [...] Modified By: CLARK JAUREGUI RN 10/06/20 12:26:54 [facility] IntraOp Patient Positioning Audit 10/06/20 12:50:11 Repairer Welding Systems And Equipment: WASSONSY Modifier: WASSONSY 1 <*> Procedure Cervical Discectomy Fusion Anterior 1 <*> Positioning Devices Arm Board, Pad, Arm, Pillows [facility] IntraOp Sign In Entry 1 Patient, [...] Modified By: CLARK JAUREGUI RN 10/06/20 12:50:24 [facility] IntraOp Sign In Audit 10/06/20 12:50:24 Repairer Welding Systems And Equipment: WASTONYSY Modifier: WASSONSY 1 <*> Allergies No 1 <*> Blood Identifiers Verified Per Not applicable Policy [facility] IntraOp Sign Out Entry 1 RN [...] Modified By: CLARK JAUREGUI RN 10/06/20 12:29:20 [facility] IntraOp Sign Out Audit 10/06/20 13:22:22 Repairer Welding Systems And Equipment: WASTONYSY Modifier: WASSONSY <+> 1 RN Sign Out Signature Date/Time 10/06/20 12:51:21 Repairer Welding Systems And Equipment: WASSONSY Modifier: WASSONSY 1 <*> Specimen Labeled Correctly Yes 1 <+> RN Sign Out Signature [facility] IntraOp Skin Prep Entry 1 Procedure Cervical Discectomy Fusion Anterior Prescribed Yes Pre-Surgical Prep Completed Prep Area NECK AFTER ALCOHOL AND HIBICLENS PREP PER DR COBOS Intraop Prep Integumentary WDL Assessment WDL Prep Agents Alcohol, Chlorhexadine gluconate, DuraPrep Prep by JEROMY SAINI, RN Hair Removal Methods No hair removal performed Last Modified By: CLARK JAUREGUI RN 10/06/20 12:17:22 [facility] IntraOp Skin Prep Audit 10/06/20 12:51:04 Repairer Welding Systems And Equipment: WASTONYSY Modifier: WASSONSY 1 <*> Prep Area NECK 1 <*> Procedure Cervical Discectomy Fusion Anterior 1 <*> Prep by MARION COBOS MD-[facility] IntraOp Surgical Procedures Entry 1 Procedure Cervical Discectomy Fusion Anterior Additional (C4-6 ACDF) Procedure Description Primary Procedure Yes Primary Surgeon MARION COBOS MD-SNU Start 10/06/20 12:27:00 Stop 10/06/20 13:12:00 Anesthesia Type General Specialty SN Neurosurgery Wound Class I - Clean Last Modified By: CLARK JAUREGUI RN 10/06/20 12:19:31 [facility] IntraOp Surgical Procedures Audit 10/06/20 13:13:12 Repairer Welding Systems And Equipment: WASSONSY Modifier: WASSONSY <+> 1 Stop 10/06/20 12:29:03 Repairer Welding Systems And Equipment: WASSONSY Modifier: WASSONSY <+> 1 Start [facility] IntraOp Temp Regulation Devices Entry 1 Temp Regulation Temperature Forced Air Warming Regulation Device device Temperature [id number] Regulation Device Serial/Unit Number Temperature Lower body Regulation Site Temperature Device 43 C Setting Temperature BERNICE BRUCE CRNA Regulation Device Applied by Last Modified By: CLARK JAUREGUI RN 10/06/20 12:43:51 [facility] IntraOP Time Out Entry 1 Procedure [...] Modified By: CLARK JAUREGUI RN 10/06/20 12:28:49 [facility] IntraOP Time Out Audit 10/06/20 12:28:49 Repairer Welding Systems And Equipment: WASTONYSY Modifier: WASSONSY 1 <+> Time Out Pause Time 1 <*> Procedure to be Performed Cervical Discectomy Fusion Anterior 10/06/20 12:27:48 Repairer Welding Systems And Equipment: HANG Modifier: HANG 1 <*> Beta Michelle [...] Performed in location of procedure after prepped/draped [facility] IntraOp X-Ray and Images Entry 1 X-Ray/Imaging Type Fluoroscopy Fluoroscopy Type C-Arm Site OP SITE Coat Operator Insulator Name Robyn Kumar, Diagnostic Back Shoe Operator Last Modified By: CLARK JAUREGUI RN 10/06/20 12:44:50 Case Comments <None> Finalized By: BO ALEX Document Signatures Signed By: CLARK JAUREGUI RN 10/06/20 14:49 CLARK JAUREGUI RN 10/06/20 13:22 BO ALEX 10/07/20 13:51 Unfinalized History Date/Time Username Reason for Unfinalizing Freetext Reason for Unfinalizing 10/06/20 14:49 HANG Correct Documentation 10/07/20 13:48 TOMAS Correct Billing Electronically signed by Ashwin [facility] Conversion Special Education Supervisor Cerner at 01/07/2023 7:36 PM CDT documented in this encounter Plan of Treatment Not on file documented as of this encounter Visit Diagnoses Not on filedocumented in this encounter
--- OUTSIDE RECORDS SUMMARY | 2025-04-22 08:50 | XMS_ITS | Clinical Summary ---
Author Organization Healthcare Address [address] [id number] Care Team Providers Care Sap Bi Developer Name Role Phone Raymond Duarte MD Primary Care Provider [phone] Family History Medical History Relation Name Comments [...] of Treatment Not on file Care Teams Sap Bi Developer Relationship Specialty Start Date End Date Raymond Duarte MD [address] [place] [address] PCP - General 01/28/21
[2025-04-22 09:31] LABS: Hematocrit 39.5 % (37.0-47.0); Hemoglobin 12.7 g/dL (12.2-16.2); Immature Granulocytes % 0.3 %; Mean Corpuscular HGB Conc 32.2 g/dL (31.8-35.4); Mean Corpuscular Hemoglobin 29.3 pg (27.0-31.2); Mean Corpuscular Volume 91.0 fl (81-99); Nucleated Red Blood Cells % 0 %; Platelet Count 308 K/mm3 (142-424); Red Blood Count 4.34 M/mm3 (4.20-5.40); Red Cell Distribution Width-SD 46.8 fL; White Blood Count 6.1 K/mm3 (4.8-10.8)
[2025-04-22 09:55] LABS: Albumin Level 3.6 g/dl (3.5-5.0)
[2025-04-22 09:58] LABS: Alanine Aminotransferase 18 U/L (12-78); Alkaline Phosphatase 157 U/L (38-126); Aspartate Amino Transferase 26 U/L (14-36); Bilirubin,Direct 0.1 mg/dl (0.0-0.4); Bilirubin,Indirect 0.3 mg/dL (0.0-0.9); Bilirubin,Total 0.4 mg/dl (0.2-1.3); Bilirubin,Unconjugated 0.2 mg/dL (0.0-1.1); Cholesterol 162 mg/dl (140-200); Total Protein,Serum 6.0 g/dl (6.3-8.2); Triglycerides 103 mg/dl (30-150)
[2025-04-22 09:59] LABS: Chloride 100 mmol/L (98-107); HDL Cholesterol 84 mg/dl (40-60)
[2025-04-22 10:00] LABS: Albumin Level 3.6 g/dl (3.5-5.0); Potassium 4.7 mmoL/L (3.5-5.1); Sodium 134 mmol/L (136-145)
[2025-04-22 10:02] LABS: Alanine Aminotransferase 18 U/L (12-78); Anion Gap 7.7 mEq/L (5-15); Aspartate Amino Transferase 26 U/L (14-36); Blood Urea Nitrogen 4 mg/dl (7-17); Carbon Dioxide 31 mmol/L (22.0-30.0); Creatinine,Serum 0.80 mg/dl (0.52-1.04); Estimated Glomerular Filt Rate 73 ml/min (>60); GFR (African American) 89 ML/MIN (>60)
[2025-04-22 10:03] LABS: Albumin/Globulin Ratio 1.6 (1.1-1.8); Alkaline Phosphatase 164 U/L (38-126); Bilirubin,Total 0.4 mg/dl (0.2-1.3); Globulin 2.3 g/dL (1.3-3.2); Total Protein,Serum 5.9 g/dl (6.3-8.2)
[2025-04-22 10:14] LABS: Free T4 (Free Thyroxine) 0.63 ng/dl (0.78-2.19)
[2025-04-22 11:08] LABS: Calcium 8.5 mg/dl (8.4-10.2); Glucose 81 mg/dl (74-100)
[2025-04-22 11:36] LABS: Thyroid Stimulating Hormone 58.80 uIU/mL (0.465-4.68)
[2025-04-23 09:20] LABS: Triiodothyronine (T3) Free 1.5 pg/mL (2.0-4.4)
== END 2025-04-22 23:59 | disposition home or self-care (01) ==
LOC: LAB 08:47
PROVIDERS: Nurse Practitioner; PCP Internal Medicine; Visit Provider Specialist
DX: I25.118 Atherosclerotic heart disease of native coronary artery with other forms of angina pectoris (principal); R73.9 Hyperglycemia, unspecified; D50.9 Iron deficiency anemia, unspecified; E66.9 Obesity, unspecified; E03.9 Hypothyroidism, unspecified; R73.03 Prediabetes; E55.9 Vitamin D deficiency, unspecified; E78.5 Hyperlipidemia, unspecified; I10 Essential (primary) hypertension; E87.6 Hypokalemia
CPT/HCPCS: 36415; 80053; 80061; 80076; 84439; 84443; 84481; 85025

== ENCOUNTER 2025-04-29 11:12 | Outpatient (POV) | payer MEDICAID, SELFPAY ==
--- OUTSIDE RECORDS SUMMARY | 2025-04-29 11:23 | XMS_ITS | Encounter Summary ---
Author Organization [employer] ([place], [place], [place], [place]) Address [address] [place] [address] Care Team Providers Care Middle School Sports Coach Name Role Phone Unavailable Primary Care Provider Unavailabl e Encounter Details Date Type Department Care Team (Late st Contact Info) Description 10/05/2020 Transcribed Document [facility] [place] [facility] [place] [address] ProviderPat MD [address] [place] [address] Social History Tobacco Use Types [...] - Historical ProviderMD - 10/05/2020 4:24 PM CHEESE PACKER PAT Adult Entered On: 10/05/2020 16:28 EST Performed On: 10/05/2020 16:24 EST by Radha Hawley RN Height and Weight, Clinical Dosing Height Source : Measured Height Entry Format : [place]millan Height, Feet : 5 ft(Converted to: 152 cm, 60 Inch) Height, Inches : 3 Inch(Converted to: 0 ft 3 Inch, 7.62 cm) Clinical Height : 160.02 cm Weight Source : Standing scale Weight Entry Format : Mcmillan Clinical Dosing Weight : 110.91 kg Weight, Pounds : 244 lb Body Surface Area (BSA) : 2.11 m2 Body Mass Index : 43.3 kg/m2 (>HHI) [place] Body Weight : 52 kg Radha Hawley [...] Radha Hawley RN - 10/05/2020 16:24 EST [place] Suicide Severity Rating Scale (C-SSRS) CSSRS Past [...] Support Person/Pt Rep Name : Raymond Lundberg [phone] Want Family/Rep/Phys Notified of Admit : No Emergency Contact #1 : x Emergency Contact #1 Phone Number : x Emergency Contact #1 Relationship : x Emergency Contact #2 : x Emergency Contact #2 Phone Number : x Emergency Contact #2 Relationship : x Chief Complaint : x Primary Language : Armenian Communication Barrier : None Isotope Technologist Needed : No Radha Hawley RN - [...]
--- OUTSIDE RECORDS SUMMARY | 2025-04-29 11:23 | XMS_ITS | Encounter Summary ---
Author Organization [employer] ([place], [place], [place], [place]) Address [address] [place] [address] Care Team Providers Care Manpower Development Specialist Name Role Phone Unavailable Primary Care Provider Unavailabl e Encounter Details Date Type Department Care Team (Late st Contact Info) Description 10/06/2020 Transcribed Document [facility] [place] [facility] [place] [address] ProviderPat MD [address] [place] [address] Social History Tobacco Use Types [...] - Pat ProviderMD - 10/06/2020 12:27 PM STOCK PATCHER [facility] Main OR PostOp Summary Primary Physician: MARION COBOS MD-SNU Finalized Date/Time: 10/06/20 17:50:53 Pt. Name: BUSHRA LUNDBERG D.O.B./Sex: 1965 Female Med Rec #: [id number] Physician: MARION COBOS MD-SNU Financial #: [id number] Pt. Type: O Room/Bed: Admit/Disch: 10/06/20 08:45:00 - Institution: [facility] Main OR PostOp Case Times Entry 1 In PACU II 10/06/20 15:34:00 Ready for PACU II 01/20/21 16:15:00 Discharge Discharge from PACU 10/06/20 16:43:00 II Last Modified By: JAYDA PAUL RN 10/06/20 17:46:19 Finalized By: JAYDA PAUL RN Document Signatures Signed By: JAYDA PAUL RN 10/06/20 17:50 Electronically signed by [facility] Conversion Machine Room Engineer Cerner at 01/07/2023 7:37 PM CDT documented in this encounter Plan of Treatment Not on file documented as of this encounter Visit Diagnoses Not on filedocumented in this encounter
--- OUTSIDE RECORDS SUMMARY | 2025-04-29 11:23 | XMS_ITS | Encounter Summary ---
Author Organization [employer] ([place], [place], [place], [place]) Address [address] [place] [address] Care Team Providers Care Paint Process Engineer Name Role Phone Unavailable Primary Care Provider Unavailabl e Encounter Details Date Type Department Care Team (Late st Contact Info) Description 04/06/2021 Transcribed Document [facility] Family Medicine [place] [address] ProviderPat MD [address] [place] [address] Social History Tobacco Use Types [...] Pat ProviderMD - 04/06/2021 11:[address] [facility] Main OR IntraOp Summary Primary Physician: MARION COBOS MD-SNU Finalized Date/Time: 04/07/21 13:03:57 Pt. Name: MELANIE LUNDBERG D.O.B./Sex: 1965 Female Med Rec #: [id number] Physician: MARION COBOS MD-SNU Financial #: [id number] Pt. Type: O Room/Bed: ASA/3 Admit/Disch: 04/06/21 06:47:00 - 04/06/21 15:30:00 Institution: [facility] IntraOp Case Attendance Entry 1 Entry 2 Entry 3 Case Attendee MARION COBOS WASSON, SANDRA D RN NELSON NGUYEN, MADELEINE NEGRETE-SNU TECH Role Performed Surgeon/Proceduralist, Lock Stitch Channeler, First Scrub, First First Time In 04/06/21 [...] D, VITO MERLOS MD-ANS Role Performed Physician project assistant TIRE MOUNTER/Nurse Side Seam Envelope Machine Operator Anesthesiologist of Record Time In [...] ATTENDEE #1 Hema Schreiber, Robyn Sales, Diagnostic Coremaking Supervisor Role Performed Vendor Scrub, Second Tie Tape Machine Operator Time In 04/06/21 11:15:00 04/06/21 11:15:00 04/06/21 [...] Lydia Cordero, Rn Role Performed Scrub, First Lock Stitch Channeler, First Time In 04/06/21 11:57:00 04/06/21 12:00:00 Time Out 04/06/21 13:04:00 04/06/21 13:04:00 Procedure Cervical Discectomy Cervical Discectomy Fusion Anterior Fusion Anterior Other Attendee LUNCH RELIEF LUNCH Superficial Wound Closed By: Last Modified By: CLARK JAUREGUI RN WASSON, SANDRA D, RN 04/06/21 13:03:22 04/06/21 13:03:22 [facility] IntraOp Case Attendance Audit 04/06/21 13:03:22 Receiver: WASSONSY Modifier: WASSONSY 1 <+> Time Out [...] Procedure Cervical Discectomy Fusion Anterior 04/06/21 12:05:52 Receiver: WASSONSY Modifier: WASSONSY <+> 11 Case Attendee <+> 11 Role Performed <+> 11 Time In <+> 11 Procedure <+> 11 Other Attendee 04/06/21 11:57:37 Receiver: WASSONSY Modifier: WASSONSY <+> 10 Case Attendee <+> 10 Role Performed <+> 10 Time In <+> 10 Procedure <+> 10 Other Attendee 04/06/21 11:57:14 Receiver: WASSONSY Modifier: WASSONSY 1 <*> Procedure Cervical [...] Procedure Cervical Discectomy Fusion Anterior 04/06/21 11:53:13 Receiver: WASSONSY Modifier: WASSONSY 1 <*> Procedure Cervical [...] Role Performed <+> 9 Procedure 04/06/21 11:48:20 Receiver: WASSONSY Modifier: WASSONSY <+> 8 Case Attendee <+> 8 Role Performed <+> 8 Time Out <+> 8 Procedure 04/06/21 11:47:37 Receiver: WASSONSY Modifier: WASSONSY 1 <+> Time In [...] Anterior 7 <*> Other Attendee BRANDYN RICHARDSON [facility] IntraOp Case Times Entry 1 Patient In Room Time 04/06/21 11:15:00 Out Room Time 04/06/21 13:04:00 Anesthesia Start Time 04/06/21 11:15:00 Stop Time 04/06/21 13:04:00 Surgery / Procedure Times Start Time 04/06/21 11:42:00 Stop Time 04/06/21 12:57:00 Last Modified By: CLARK JAUREGIU RN 04/06/21 13:03:11 [facility] IntraOp Case Times Audit 04/06/21 13:03:11 Receiver: HANG Modifier: WASSONSY <+> 1 Out Room Time <+> 1 Stop Time <+> 1 Stop Time 04/06/21 11:46:55 Receiver: HANG Modifier: WASSONSY <+> [address] [facility] IntraOp Cautery Entry 1 Entry 2 ESU Identification Cautery Type Monopolar ESU BiPolar ESU Cautery Type Comments ID Number [id number] ID Type Hospital Number Hospital Number Cautery [...] CLARK JAUREGUI RN 04/06/21 11:49:21 04/06/21 11:50:42 [facility] IntraOp Cautery Audit 04/06/21 11:50:42 Receiver: HANG Modifier: JUVENTINOSY 2 <*> ID Number [id number] [facility] IntraOp Communication Entry 1 Communication To Family/Significant other Comment START Communication By CLARK JAUREGUI RN Date and Time 04/06/21 11:46:00 Last Modified By: CLARK JAUREGUI RN 04/06/21 11:47:05 [facility] IntraOp Counts Verification Entry 1 Procedure Cervical Discectomy Fusion Anterior Count Info Count Type Sponge, Sharps, Miscellaneous Counts Verification Baseline/pre-procedure Sequence Count Results Not Applicable Counts Performed By Count Performed By Hema Schreiber, SARAH (Scrub) Count Performed By CLARK JAUREGUI RN (RN) Last Modified By: CLARK JAUREGUI RN 04/06/21 11:48:27 [facility] IntraOp Counts Verification Audit 04/06/21 11:48:27 Receiver: WASSONSY Modifier: WASSONSY 1 <*> Procedure Cervical Discectomy Fusion Anterior 1 <+> Count Performed By (Scrub) [facility] IntraOp Counts Final Entry 1 Procedure Cervical Discectomy Fusion Anterior Final Count Info Count Type Sponge, Sharps, Miscellaneous Counts Verification Skin Closure/end of Sequence procedure Count Results Correct, surgeon notified Counts Performed By Count Performed By Hema Schreiber CST (Scrub) Count Performed By CLARK JAUREGUI, RN (RN) Last Modified By: CLARK JAUREGUI RN 04/06/21 12:49:55 [facility] IntraOp Counts Final Audit 04/06/21 12:49:55 Receiver: WASSONSY Modifier: WASSONSY 1 <*> Procedure Cervical Discectomy Fusion Anterior 1 <+> Count Performed By (Scrub) 1 <+> Count Performed By (RN) [facility] IntraOp Cultures and Spec Summary Entry 1 Cultrures and Specimens Specimen Ordered: Yes Test(s) Routine/Path-Lab Requested/Final Disposition Last Modified By: CLARK JAUREGUI RN 04/06/21 11:47:49 General Comments: A. EXPLANTED HARDWARE [facility] IntraOp Departure from OR Entry 1 Integumentary Assessment Integumentary WDL Assessment WDL Transfer/Handoff Transfer to PACU Phase I Handoff Method Phone call Post-op Transport Stretcher/Gurney Via Patient Transport LEANNE RUIZ, NA, Accompanied by HEBERT GAMBOA Last Modified By: CLARK JAUREGUI RN 04/06/21 12:06:34 [facility] IntraOp Departure from OR Audit 04/06/21 12:06:34 Receiver: HANG Modifier: WASSONSY <+> 1 Patient Transport Accompanied by [facility] IntraOp Dressing and Packing Entry 1 Type Dressing Location NECK Wound Dressing Item [place] Applied By HEBERT GAMBOA Other Comments OINTMENT, COVADERM Last Modified By: CLARK JAUREGUI RN 04/06/21 12:07:25 [facility] IntraOp Fire Risk Assessment Entry 1 Fire Info Surgical Site or 1- Yes Incision Above the Xyphoid Open O2 Source 0- No (Mask or Cannula) Available Ignition 1- Yes (ESU, Laser, Light Source) Fire Risk 2 Assessment Score Fire Score Fire Risk Yes Assessment Complete Fire Risk CLARK JAUREGUI, gas leak inspector Verified By Fire Risk 04/06/21 11:14:00 Assessment Verified Date/Time Fire Risk Standard Fire Yes Safety Precautions Followed Last Modified By: CLARK JAUREGUI RN 04/06/21 11:50:47 [facility] IntraOp Fire Risk Assessment Audit 04/06/21 11:50:47 Receiver: HANG Modifier: WASSONSY <+> 1 Fire Risk Assessment Verified By [facility] IntraOp General Case Shipping And Receiving Weigher 1 Case Information OR OR 11 [facility] Case Level 1 Room Verified Yes Wound Class I - Clean Specialty Neurosurgery Anesthesia Type General ASA Class 3 Diagnosis Preop Diagnosis CERVICAL RADICULOPATHY Postop Same As Preop No Postop Diagnosis SEE MD POST OP NOTE Last Modified By: CLARK JAUREGUI RN 04/06/21 11:49:40 [facility] IntraOp General Case Data Audit 04/06/21 11:49:40 Receiver: HANG Modifier: WASSONSY 1 <*> OR OR 09 [facility] 1 <+> ASA Class 1 <+> Room Verified [facility] IntraOp Implant Log Entry 1 Entry 2 Entry 3 Type Tissue Implant Implant (Synthetic) Implant (Synthetic) (Biologic) Implant Log Implant Type Hardware Hardware Tissue Implant Type Bone Implant BONE VIVIGEN FORMABLE CAGE EIT CIF H 6MM 8DEG PLT ANT SKYLN HYBRD Identification [id number] Description Implant Quantity 1 1 1 Implant Site CERIVAL CERVICAL SPINE OP SITE Implant Identification Model Number Implant [id number] Identification Serial Number Implant [id number] Identification Lot Number Implant Lifenet:Lifenet J&J:Depuy:Depuy Spine J&J:Depuy:Depuy Spine Identification Transplant Srv Labor Custodian Name: Implant [id number] [id number] Identification Catalog Number Implant Size Implant Has an Yes Yes Expiration Date Implant Expiration 02/23/22 02/14/25 Date Wasted Radioactive Material Time Implanted Tissue Implant Continue for Tissue Implant Documentation Tissue Identification Number Graft Prep Per Yes Labor Custodian Instructions: Tissue Preparation Thawed Method: Reconstitution Solution: Reconstitution Solution Lot Number Reconstitution Solution Expiration Date: Thawing Solution NACL Thawing Solution [id number] Lot Number Thawing Solution 12/16/22 Expiration Date Preparation Materials, Other Preparation Materials, Other Lot Number Preparation Materials, Other Expiration Date Tissue Hema Schreiber, SARAH Prepared/Processed By Labor Custodian Yes Paperwork Completed Implant Type Comment Last Modified By: CLARK JAUREGUI RN WASSON, SANDRA D, RN WASSON, SANDRA D, RN 04/06/21 12:38:32 04/06/21 12:38:32 04/06/21 12:49:39 Entry 4 Entry 5 Type Implant (Synthetic) Implant (Synthetic) Implant Log Implant Type Hardware Hardware Tissue Implant Type Implant SCR SKYLN VARI-OVSZ SCR SKYLN VARI SD Identification [id number] Description Implant Quantity 6 2 Implant Site OP SITE OP SITE Implant Identification Model Number Implant Identification Serial Number Implant Identification Lot Number Implant J&J:Depuy:Depuy Spine J&J:Depuy:Depuy Spine Identification Labor Custodian Name: Implant [id number] [id number] Identification Catalog Number Implant Size Implant Has an Expiration Date Implant Expiration Date Wasted Radioactive Material Time Implanted Tissue Implant Continue for Tissue Implant Documentation Tissue Identification Number Graft Prep Per Labor Custodian Instructions: Tissue Preparation Method: Reconstitution Solution: Reconstitution Solution Lot Number Reconstitution Solution Expiration Date: Thawing Solution Thawing Solution Lot Number Thawing Solution Expiration Date Preparation Materials, Other Preparation Materials, Other Lot Number Preparation Materials, Other Expiration Date Tissue Prepared/Processed By Labor Custodian Paperwork Completed Implant Type Comment Last Modified By: CLARK JAUREGUI RN WASSON, SANDRA D, RN 04/06/21 12:49:39 04/06/21 12:49:39 [facility] IntraOp Implant Log Audit 04/06/21 12:49:39 Receiver: HANG Modifier: JENNIFERTONYROSALIA <+> 3 Implant Identification Description <+> 3 Implant Identification Labor Custodian Name: <+> 3 Implant Site <+> 3 Implant Quantity <+> 3 Implant Identification Catalog Number <+> 3 Implant Type <+> 3 Type <+> 4 Implant Identification Description <+> 4 Implant Identification Labor Custodian Name: <+> 4 Implant Site <+> 4 Implant Quantity <+> 4 Implant Identification Catalog Number <+> 4 Implant Type <+> 4 Type <+> 5 Implant Identification Description <+> 5 Implant Identification Labor Custodian Name: <+> 5 Implant Site <+> 5 Implant Quantity <+> 5 Implant Identification Catalog Number <+> 5 Implant Type <+> [address] [facility] IntraOp Intraoperative Assessment Entry 1 Handoff [...] Modified By: CLARK JAUREGUI RN 04/06/21 11:49:53 [facility] IntraOp Intraoperative Equipment Entry 1 Type Equipment Equipment Equipment Kg Suction System ID Number [id number] Setting 160 MM HG Intraop Monitoring Electrocardiogram Five lead placement (ECG) Electrode Placement Blood Pressure Non-Invasive BP Device Source Blood Pressure Arm, left upper Location Pulse Oximeter Hand, right Probe Site Antiembolic Devices Antiembolic Devices Sequential compression device, knee high Antiembolic Device Bilateral Location Antiembolic Device [id number] ID Number Scopes Photo/Video Documentation Photo No Video No Last Modified By: CLARK JAUREGUI RN 04/06/21 11:50:32 [facility] IntraOp Medication Admin Entry 1 Entry 2 Entry 3 Medication/Irrigant lidocaine 1% w/ SPNG SURGFOAM thrombin 5000units epinephrine 1:100,000 [id number] topical powder - 30ml vial - [id number] Combo Med List Time Administered Route of [...] Entry 4 Medication/Irrigant vancomycin 1Gm vial - [id number] Combo Med List Time Administered Route of ADDED TO NS IRRIGATIION Administration Dose Dose 1 Unit of Measure gram Volume Administered By MARION COBOS MD-SNRaquel Procedure Irrigation Irrigant Volume In Irrigant Volume Out Last Modified By: CLARK JAUREGUI RN 04/06/21 11:55:23 [facility] IntraOp Patient Positioning Entry 1 Procedure [...] Modified By: CLARK JAUREGUI RN 04/06/21 11:52:27 [facility] IntraOp Sign In Entry 1 Patient, [...] Modified By: CLARK JAUREGUI RN 04/06/21 11:55:41 [facility] IntraOp Sign Out Entry 1 RN [...] Modified By: CLARK JAUREGUI RN 04/06/21 13:03:21 [facility] IntraOp Sign Out Audit 04/06/21 13:03:21 Receiver: HANG Irizarry: JUVENTINOSY <+> 1 RN Sign Out Signature Date/Time [facility] IntraOp Skin Prep Entry 1 Procedure Cervical Discectomy Fusion Anterior Prescribed Yes Pre-Surgical Prep Completed Prep Area OP SITE AFTER ALCOHOL AND HIBICLENS PREP PER DR PAPITO Intraop Prep Integumentary WDL Assessment WDL Prep Agents Alcohol, Chlorhexadine gluconate, DuraPrep Prep by CLARK JAUREGUI, RN Hair Removal Methods No hair removal performed Last Modified By: CLARK JAUREGUI RN 04/06/21 11:52:57 [facility] IntraOp Surgical Procedures Entry 1 Procedure Cervical Discectomy Fusion Anterior Additional (C6-7 ACDF WITH Procedure REVISION OF C4-6 Description HARDWARE) Primary Procedure Yes Primary Surgeon MARION COBOS MD-SNU Start 04/06/21 11:42:00 Stop 04/06/21 12:57:00 Anesthesia Type General Specialty Neurosurgery Wound Class I - Clean Last Modified By: CLARK JAUREGUI RN 04/06/21 13:03:14 General Comments: ANCEF 2 GRAM IV PER ANESTHESIA [facility] IntraOp Surgical Procedures Audit 04/06/21 13:03:14 Receiver: HANG Modifier: WASSONSY 1 <*> Stop 1 <*> Stop [facility] IntraOP Time Out Entry 1 Procedure [...] Modified By: CLARK JAUREGUI RN 04/06/21 11:44:18 [facility] IntraOp X-Ray and Images Entry 1 X-Ray/Imaging Type Fluoroscopy Fluoroscopy Type C-Arm Site OP SITE Farmworker Brooder Farm Name Robyn Kumar, Diagnostic Coremaking Supervisor Last Modified By: CLARK JAUREGUI RN 04/06/21 [...]
--- OUTSIDE RECORDS SUMMARY | 2025-04-29 11:23 | XMS_ITS | Encounter Summary ---
Author Organization [employer] ([place], [place], [place], [place]) Address [address] [place] [address] Care Team Providers Care Thaw Shed Heater Tender Name Role Phone Unavailable Primary Care Provider Unavailabl e Encounter Details Date Type Department Care Team (Late st Contact Info) Description 04/06/2021 Transcribed Document [facility] Family Medicine [facility] [place] [address] ProviderPat MD [address] [place] [address] Social History Tobacco Use Types [...] and water are not available, use hand recycling program manager. ? Change your dressing as told by [...] Managing pain, stiffness, and swelling ??? Take kzql-mux-jkajjpd and prescription medicines only as told by [...] keep your urine pale yellow. ? Take bwvj-peq-bixfogf or prescription medicines. ? Eat foods that [...] provider. Document Revised: 05/29/2019 Document Reviewed: 05/29/2019 Smartsheet Patient Education ? 2020 [employer] Pharmacology General Anesthesia, Adult, Care After [...] activities are safe for you. ??? Take kjkf-and-yfxrxwn and prescription medicines only as told by [...] provider. Document Revised: 09/06/2018 Document Reviewed: 04/19/2018 Smartsheet Patient Education ? 2020 [employer]. documented in this encounter Plan of Treatment Not on file documented as of this encounter Visit Diagnoses Not on filedocumented in this encounter
--- OUTSIDE RECORDS SUMMARY | 2025-04-29 11:23 | XMS_ITS | Clinical Summary ---
Author Organization Healthcare Address [address] [id number] Care Team Providers Care Bedspread Inspector Name Role Phone Raymond Duarte MD Primary Care Provider [phone] Family History Medical History Relation Name Comments [...] of Treatment Not on file Care Teams Bedspread Inspector Relationship Specialty Start Date End Date Raymond Duarte MD [address] [place] [address] PCP - General 01/28/21
--- OUTSIDE RECORDS SUMMARY | 2025-04-29 11:23 | XMS_ITS | Encounter Summary ---
Author Organization [employer] ([place], [place], [place], [place]) Address [address] [place] [address] Care Team Providers Care Dry Goods Inspector Name Role Phone Unavailable Primary Care Provider Unavailabl e Encounter Details Date Type Department Care Team (Late st Contact Info) Description 04/06/2021 Transcribed Document [facility] Family Medicine [facility] [place] [address] ProviderPat MD [address] [place] [address] Social History Tobacco Use Types [...] Pat ProviderMD - 04/06/2021 11:42 AM CDT [facility] Main OR PostOp Summary Primary Physician: MARION COBOS MD-SNU Finalized Date/Time: 04/07/21 13:01:30 Pt. Name: BUSHRA LUNDBERG D.O.B./Sex: 1965 Female Med Rec #: [id number] Physician: MARION COBOS MD-SNU Financial #: [id number] Pt. Type: O Room/Bed: ASA/3 Admit/Disch: 04/06/21 06:47:00 - 04/06/21 15:30:00 Institution: [facility] Main OR PostOp Case Times Entry 1 [...]
--- OUTSIDE RECORDS SUMMARY | 2025-04-29 11:23 | XMS_ITS | Encounter Summary ---
Author Organization [employer] ([place], [place], [place], [place]) Address [address] [place] [address] Care Team Providers Care Cupola Liner Helper Name Role Phone Unavailable Primary Care Provider Unavailabl e Encounter Details Date Type Department Care Team (Late st Contact Info) Description 04/06/2021 Transcribed Document [facility] Family Medicine [facility] [place] [address] ProviderPat MD [address] [place] [address] Social History Tobacco Use Types [...] Pat ProviderMD - 04/06/2021 11:42 AM CDT [facility] Main OR PACU Summary Primary Physician: MARION COBOS MD-SNRaquel Finalized Date/Time: 04/06/21 14:03:32 Pt. Name: BUSHRA LUNDBERG D.O.B./Sex: 1965 Female Med Rec #: [id number] Physician: MARION COBOS MD-SNU Financial #: [id number] Pt. Type: O Room/Bed: ASA/3 Admit/Disch: 04/06/21 06:47:00 - Institution: [facility] Main OR PACU I Case Times Entry 1 In PACU I 04/06/21 13:05:00 Ready for PACU 04/06/21 13:55:00 Discharge Discharge from PACU 04/06/21 13:55:00 I Last Modified By: COSMO PIERRE RN 04/06/21 14:03:24 [facility] Main OR PACU I Case Times Audit 04/06/21 14:03:24 Woven Paper Hat Mender: [id number] Modifier: [id number] <+> 1 Ready for PACU Discharge <+> 1 Discharge from PACU I Finalized By: COSMO PIERRE RN Document Signatures Signed By: COSMO PIERRE RN 04/06/21 14:03 Electronically signed by Ashwin [facility] Conversion Development Rep Cerner at 01/07/2023 7:30 PM CDT documented in this encounter Plan of Treatment Not on file documented as of this encounter Visit Diagnoses Not on filedocumented in this encounter
--- OUTSIDE RECORDS SUMMARY | 2025-04-29 11:23 | XMS_ITS | Referral Summary ---
Author Organization [employer] ([place], [place], [place], [place]) Address [address] [place] [address] Care Team Providers Care Pick Pulling Machine Operator Name Role Phone Unavailable Primary [...]
--- OUTSIDE RECORDS SUMMARY | 2025-04-29 11:23 | XMS_ITS | Clinical Summary ---
Author Organization [employer] ([place], [place], [place], [place]) Address [address] [place] [address] Care Team Providers Care Stabber Name Role Phone Unavailable Primary Care Provider [...]
--- OUTSIDE RECORDS SUMMARY | 2025-04-29 11:23 | XMS_ITS | Encounter Summary ---
Author Organization [employer] ([place], [place], [place], [place]) Address [address] [place] [address] Care Team Providers Care Fare Enforcement Officer Name Role Phone Unavailable Primary Care Provider Unavailabl e Encounter Details Date Type Department Care Team (Late st Contact Info) Description 10/06/2020 Transcribed Document [facility] [place] [address] [place] [address] ProviderPat MD [address] [place] [address] Social History Tobacco Use Types [...] - Pat ProviderMD - 10/06/2020 4:32 PM COMPOSITION PROFESSOR [facility] [place] [address] BUSHRA LUNDBERG :1965 Visit Time:10/06/2020 What [...] TIMES A DAY WHILE ON PAIN MEDICATION [facility] ACDF INSTRUCTIONS Discharge Follow Up Instructions: f/u 4-5 weeks post op with AP/lateral x-rays of the cervical spine. Follow-Up Appointments Follow Up with MARION SIMON When Within 1 month Comments Follow-up as instructed [facility] THEN FOLLOW UP WITH dr simon afterwards Where: [address] (SUNDAY ONLY) [place] [address]- [employer] (1) Medications What How Much When Instructions [...] and water are not available, use hand chief business officer. ? Change your dressing as told [...] or a bad smell. Medicines ??? Take hces-zty-tjytwuo and prescription medicines only as told by [...] 12/24/2016 Document Revised: 12/02/2018 Document Reviewed: 12/24/2016 [employer] 24/7 Patient Education ?? 2020 [employer] Emergency Awareness and Preventative Care STROKE [...] Assistance with quitting is available by contacting 7-870-CIIO-NOW. This is a free resource providing counseling, [...] was given the opportunity to ask questions. Patient/Catalogue Illustrator Name: Patient/Catalogue Illustrator Signature: Relationship to Patient: Clinician/Hospital Catalogue Illustrator Signature: Date: Electronically signed by Ashwin, [facility] Conversion Event Staff Member Armen at 01/07/2023 7:29 PM CDT documented in this encounter Plan of Treatment Not on file documented as of this encounter Visit Diagnoses Not on filedocumented in this encounter
--- OUTSIDE RECORDS SUMMARY | 2025-04-29 11:23 | XMS_ITS | Encounter Summary ---
Author Organization [employer] ([place], [place], [place], [place]) Address [address] [place] [address] Care Team Providers Care Unemployment Inspector Name Role Phone Unavailable Primary Care Provider Unavailabl e Encounter Details Date Type Department Care Team (Late st Contact Info) Description 10/06/2020 Transcribed Document [facility] [address] [facility] [address] [place] [address] Srinivas Melendez MD [address] [facility] [address] [place] [address] Social History Tobacco Use Types Packs/Day Years [...] Problems PN (peripheral neuropathy) / SNOMED CT 517806290 / Confirmed Neck pain / SNOMED CT 213505893 / Confirmed Hypothyroid / SNOMED CT 26890891 / Confirmed HTN (hypertension) / SNOMED CT 2283166047 / Confirmed HLD (hyperlipidemia) / SNOMED CT 87270225 / Confirmed GERD (gastroesophageal reflux disease) / SNOMED CT 828689811 / Confirmed Depression / SNOMED CT 78491547 / Confirmed Back pain / SNOMED CT 161150926 / Confirmed At risk for sleep apnea / IMO 79599061 / Confirmed Anxiety / SNOMED CT 77606726 / Confirmed, Active Problems (10) Anxiety At [...] EST Height Source Measured Height Entry Format Pfeifer Height/Length, ROMANIAN (ft) 5 ft Height/Length ROMANIAN 3 Inch CLINICALHEIGHT 160.02 cm [place] Body Weight 52 kg Weight Source Standing scale Weight Entry Format Pfeifer Weight [place] lb 244 lb CLINICALWEIGHT 110.91 kg Body [...] ROM neck, RUE weakness. Integumentary: Warm, Dry, [place]. Neurologic: Alert, Oriented. Psychiatric: Cooperative, Appropriate mood & affect. Review / Management Results review: No qualifying data available. Impression and Plan Condition: Stable. documented in this encounter Plan of Treatment Not on file documented as of this encounter Visit Diagnoses Not on filedocumented in this encounter
--- OUTSIDE RECORDS SUMMARY | 2025-04-29 11:23 | XMS_ITS | Encounter Summary ---
Author Organization [employer] ([place], [place], [place], [place]) Address [address] [place] [address] Care Team Providers Care Swimming Pool Servicer Name Role Phone Unavailable Primary Care Provider Unavailabl e Encounter Details Date Type Department Care Team (Late st Contact Info) Description 10/06/2020 Transcribed Document [facility] [place] Family Medicine [facility] [place] [address] ProviderPat MD [address] [place] [address] Social History Tobacco Use Types [...] - Pat ProviderMD - 10/06/2020 12:27 PM HUMAN RESOURCES LEADER [facility] Main OR PACU Summary Primary Physician: MARION COBOS MD-SNU Finalized Date/Time: 10/06/20 15:35:11 Pt. Name: BUSHRA LUNDBERG D.O.B./Sex: 1965 Female Med Rec #: [id number] Physician: MARION COBOS MD-MIKO Financial #: [id number] Pt. Type: O Room/Bed: Admit/Disch: 10/06/20 08:45:00 - Institution: [facility] Main OR PACU I Case Times Entry 1 In PACU I 10/06/20 13:20:00 Ready for PACU 10/06/20 14:25:00 Discharge Discharge from PACU 10/06/20 15:25:00 I Last Modified By: CINDY AGUIRRE RN 10/06/20 15:34:39 [facility] Main OR PACU Acuity Entry 1 Start Time 10/06/20 14:25:00 Stop Time 10/06/20 15:25:00 Acuity Level [facility] PACU Acuity I Last Modified By: CINDY AGUIRRE RN 10/06/20 15:35:08 Finalized By: CINDY AGUIRRE, RN Document Signatures Signed By: CINDY AGUIRRE RN 10/06/20 15:35 Electronically signed by Ashwin [facility] Conversion Bodywork Therapist Cerner at 01/07/2023 7:31 PM CDT documented in this encounter Plan of Treatment Not on file documented as of this encounter Visit Diagnoses Not on filedocumented in this encounter
--- OUTSIDE RECORDS SUMMARY | 2025-04-29 11:23 | XMS_ITS | Encounter Summary ---
Author Organization [employer] ([place], [place], [place], [place]) Address [address] [place] [address] Care Team Providers Care Sales Financial Analyst Name Role Phone Unavailable Primary Care Provider Unavailabl e Encounter Details Date Type Department Care Team (Late st Contact Info) Description 04/06/2021 Transcribed Document [facility] [address] [facility] [address] [place] [address] Srinivas Melendez MD [address] [facility] [address] [place] [address] Social History Tobacco Use Types [...] Problems PN (peripheral neuropathy) / SNOMED CT 483271434 / Confirmed Neck pain / SNOMED CT 194169122 / Confirmed Hypothyroid / SNOMED CT 47059056 / Confirmed HTN (hypertension) / SNOMED CT 7007715943 / Confirmed HLD (hyperlipidemia) / SNOMED CT 41126601 / Confirmed GERD (gastroesophageal reflux disease) / SNOMED CT 113406440 / Confirmed Depression / SNOMED CT 88979984 / Confirmed Back pain / SNOMED CT 585438969 / Confirmed At risk for sleep apnea / IMO 09945332 / Confirmed Anxiety / SNOMED CT 32367318 / Confirmed, Active Problems (10) Anxiety At [...] RUE weakness, LLE weakness. Integumentary: Warm, Dry, [place]. Neurologic: Alert, Oriented. Psychiatric: Cooperative, Appropriate mood [...]
--- OUTSIDE RECORDS SUMMARY | 2025-04-29 11:23 | XMS_ITS | Encounter Summary ---
Author Organization [employer] ([place], [place], [place], [place]) Address [address] [place] [address] Care Team Providers Care Terra [place]ta Roofer Helper Name Role Phone Unavailable Primary Care Provider Unavailabl e Encounter Details Date Type Department Care Team (Late st Contact Info) Description 04/06/2021 Transcribed Document [facility] Family Medicine [facility] [place] [address] ProviderPat MD [address] [place] [address] Social History Tobacco Use Types [...] Pat ProviderMD - 04/06/2021 11:42 AM CDT [facility] Main OR Preop Summary Primary Physician: MARION COBOS MD-SNU Finalized Date/Time: 04/06/21 12:32:08 Pt. Name: BUSHRA LUNDBERG D.O.B./Sex: 1965 Female Med Rec #: [id number] Physician: MARION COBOS MD-SNU Financial #: [id number] Pt. Type: O Room/Bed: ASA/3 Admit/Disch: 04/06/21 06:47:00 - Institution: [facility] PreOp Case Times Entry 1 In Preop 04/06/21 08:53:00 Ready for Holding n/a Room Patient Ready for 04/06/21 10:00:00 Surgery Patient Out of Preop 04/06/21 11:11:00 Patient Out of n/a Holding Room Last Modified By: ANA LORD RN 04/06/21 12:32:01 [facility] PreOp Case Times Audit 04/06/21 12:32:01 University Teacher: KODAK Modifier: MISTY[place]ATFIELD <+> 1 Patient Out of Preop 04/06/21 10:12:28 University Teacher: KODAK Modifier: M[place]FIELD 1 <*> Patient Ready for Surgery 04/06/21 10:12:00 Finalized By: ANA LORD RN Document Signatures Signed By: ANA LORD RN 04/06/21 12:32 Electronically signed by Ashwin [facility] Conversion Blacking Wheel Tender Cerner at 01/07/2023 7:30 PM CDT documented in this encounter Plan of Treatment Not on file documented as of this encounter Visit Diagnoses Not on filedocumented in this encounter
--- OUTSIDE RECORDS SUMMARY | 2025-04-29 11:23 | XMS_ITS | Encounter Summary ---
Author Organization [employer] ([place], [place], [place], [place]) Address [address] [place] [address] Care Team Providers Care Supervisor Of Guidance And Testing Name Role Phone Unavailable Primary Care Provider Unavailabl e Encounter Details Date Type Department Care Team (Late st Contact Info) Description 04/06/2021 Transcribed Document [facility] [place] [facility] [place] [address] ProviderPat MD [address] [place] [address] Social History Tobacco Use Types [...] Ministry Provided to : Patient, Family/Significant other Scientology Preference : Mormon ([employer]iples [employer]) ARMIN LAL - 04/06/2021 11:16 EDT Interventions Emotional Support : Empathic/Engaged listening, Family/Significant other supported, Feelings expressed Spiritual and Scientology : Prayer shared, Spiritual/Scientology support provided Change, Adjustment and Loss : Relationships/Community/Support system discussed ARMIN LAL - 04/06/2021 11:16 EDT Outcomes Affect/Behavior Changed : Comforted Appreciation Expressed : Yes Thoughts, Feelings and Emotions Exp. : Yes Supportive Relationships Described : Family, Jehovah'S Witness family HEAD, ARMIN - 04/06/2021 11:16 EDT Electronically signed by Monroe Christopher Conversion Mechanical Engineering Director Cerner at 01/07/2023 7:35 PM CDT documented in this encounter Plan of Treatment Not on file documented as of this encounter Visit Diagnoses Not on filedocumented in this encounter
--- OUTSIDE RECORDS SUMMARY | 2025-04-29 11:23 | XMS_ITS | Encounter Summary ---
Author Organization [employer] ([place], [place], [place], [place]) Address [address] [place] [address] Care Team Providers Care Vehicle Assembly Inspector Name Role Phone Unavailable Primary Care Provider Unavailabl e Encounter Details Date Type Department Care Team (Late st Contact Info) Description 04/06/2021 Transcribed Document [facility] Family Medicine [address] [place] [address] ProviderPat MD [address] [place] [address] Social History Tobacco Use Types [...] Pat ProviderMD - 04/06/2021 2:13 PM CDT [facility] [place] [address] BUSHRA ABDI :1965 Visit Time:04/06/2021 [...] Comments Follow-up appointment at 9:15am Where: [address] (SUNDAY ONLY) [place] [address]- Medications What How Much When Instructions Next [...] activities are safe for you. ??? Take xmas-wyw-xrvxows and prescription medicines only as told by [...] provider. Document Revised: 09/06/2018 Document Reviewed: 04/19/2018 [employer] Patient Education ?? 2020 [employer] Anterior Cervical Diskectomy and Fusion, Care [...] and water are not available, use hand automobile damage appraiser. ? Change your dressing as told by [...] Managing pain, stiffness, and swelling ??? Take dwkv-dxv-cbfaleu and prescription medicines only as told by [...] keep your urine pale yellow. ? Take ssad-dkh-nsltpbd or prescription medicines. ? Eat foods that [...] provider. Document Revised: 05/29/2019 Document Reviewed: 05/29/2019 [employer] Patient Education ?? 2020 Quarterly. Emergency Awareness and Preventative Care STROKE is [...] Assistance with quitting is available by contacting 4-746-NSWX-NOW. This is a free resource providing counseling, [...] ) Urine Bilirubin Dipstick: Negative Urine Specific [place]: 1.012 -- Normal range between ( 1.005 [...] was given the opportunity to ask questions. Patient/Washer Blanket Name: Patient/Washer Blanket Signature: Relationship to Patient: Clinician/Hospital Washer Blanket Signature: Date: Electronically signed by Interface, [facility] Conversion Greens Or Grounds Superintendent Armen at 01/07/2023 7:35 PM CDT documented in this encounter Plan of Treatment Not on file documented as of this encounter Visit Diagnoses Not on filedocumented in this encounter
--- OUTSIDE RECORDS SUMMARY | 2025-04-29 11:23 | XMS_ITS | Encounter Summary ---
Author Organization [employer] ([place], [place], [place], [place]) Address [address] [place] [address] Care Team Providers Care Manager Planning Name Role Phone Unavailable Primary Care Provider Unavailabl e Encounter Details Date Type Department Care Team (Late st Contact Info) Description 04/06/2021 Transcribed Document [facility] [facility] [address] [place] [address] Srinivas Melendez MD [address] [facility] [address] [place] [address] Social History Tobacco Use Types [...] diskectomy and fusion. 2. Replating from C4-C7. MANAGER FINANCIAL REPORTING: [place]. TYPE OF ANESTHESIA: GEA. DESCRIPTION [...] the distraction pins were. A 48 mm [place] plate was then affixed to the anterior [...] LOSS: 50 mL. DRAINS: None. COMPLICATIONS: None. /[id number] MD BEN Rodrigez/RIGOBERTO / MPT / MODL /[id number] CC: Leeann Johnson documented in this encounter Plan of Treatment Not on file documented as of this encounter Visit Diagnoses Not on filedocumented in this encounter
--- OUTSIDE RECORDS SUMMARY | 2025-04-29 11:23 | XMS_ITS | Encounter Summary ---
Author Organization [employer] ([place], [place], [place], [place]) Address [address] [place] [address] Care Team Providers Care Fire Department Battalion Chief Name Role Phone Unavailable Primary Care Provider Unavailabl e Encounter Details Date Type Department Care Team (Late st Contact Info) Description 10/06/2020 Transcribed Document [facility] Family Medicine [facility] [place] [address] ProviderPat MD [address] [place] [address] Social History Tobacco Use Types [...] - Pat ProviderMD - 10/06/2020 4:28 PM INVENTORY ANALYST Patient Education Materials Follows: Outpatient Surgery, Adult, [...] and water are not available, use hand pulling machine operator. ? Change your dressing as told [...] or a bad smell. Medicines ??? Take qvow-hrh-cmcgvzy and prescription medicines only as told by [...] 12/24/2016 Document Revised: 12/02/2018 Document Reviewed: 12/24/2016 [employer] Patient Education ? 2020 [employer]. documented in this encounter Plan of Treatment Not on file documented as of this encounter Visit Diagnoses Not on filedocumented in this encounter
--- OUTSIDE RECORDS SUMMARY | 2025-04-29 11:23 | XMS_ITS | Encounter Summary ---
Author Organization [employer] ([place], [place], [place], [place]) Address [address] [place] [address] Care Team Providers Care Suction Roller Name Role Phone Unavailable Primary Care Provider Unavailabl e Encounter Details Date Type Department Care Team (Late st Contact Info) Description 04/01/[address] [facility] [place] [facility] [place] [address] ProviderPat MD [address] [place] [address] Social History Tobacco Use Types [...] % Oxygen Therapy Mode : Room air RBOERT HOLBROOK RN - 04/04/2021 8:21 EDT Height and Weight, Clinical Dosing Height Source : Measured Height Entry Format : [place] Height, Feet : 0 ft(Converted to: 0 cm, 0 Inch) Height, Inches : 63.5 Inch(Converted to: 5 ft 3 Inch, 161.29 cm) Clinical Height : 161.29 cm Weight Source : Standing scale Weight Entry Format : [place] Clinical Dosing Weight : 110.94 kg Weight, Pounds : 244 lb Weight, Ounces : 1 oz Body Surface Area (BSA) : 2.12 m2 Body Mass Index : 42.6 kg/m2 (>HHI) [place] Body Weight : 53 kg ROBERT HOLBROOK RN - 04/04/2021 8:07 EDT Health Histories Smoking Status : Former smoker, quit more than 30 days ago Smokeless Tobacco Status : Never Implant/Device Type, Student Assistant and Model : hardware in neck Anthony [...] : Yes Spiritual/Cultural Needs Comment : 04/06 Holiness Preference : Denominational (Disciples of Hernán) Spiritual/Cultural Needs Comment : 04/06 Anthony Cullen Rn - 04/01/2021 9:58 EDT [place] Suicide Severity Rating Scale (C-SSRS) CSSRS Past [...] Info Legal Guardian : Friend Support Person/Patient Barrel Planer : Yes Support Person/Pt Rep Name : Lena Chapman - friend Support Person/Pt Rep Contact Information : [phone] Want Family/Rep/Phys Notified of Admit : No Emergency Contact #1 : ` Emergency Contact #1 Phone Number : ` Emergency Contact #1 Relationship : ` Emergency Contact #2 : ` Emergency Contact #2 Phone Number : ` Emergency Contact #2 Relationship : ` Primary Language : Tamazight Communication Barrier : None Dexigraph Operator Needed : No Anthony Cullen Rn - [...]
--- OUTSIDE RECORDS SUMMARY | 2025-04-29 11:23 | XMS_ITS | Encounter Summary ---
Author Organization [employer] ([place], [place], [place], [place]) Address [address] [place] [address] Care Team Providers Care Bath Mixer Name Role Phone Unavailable Primary Care Provider Unavailabl e Encounter Details Date Type Department Care Team (Late st Contact Info) Description 10/06/2020 Transcribed Document [facility] [place] Family Medicine [facility] [place] [address] ProviderPat MD [facility] [place] [address] Social History Tobacco Use Types [...] - Pat ProviderMD - 10/06/2020 12:27 PM SALES ENABLEMENT MANAGER [facility] Main OR IntraOp Summary Primary Physician: MARION COBOS MD-SNU Finalized Date/Time: 10/07/20 13:51:00 Pt. Name: MELANIE LUNDBERGO.B./Sex: 1965 Female Med Rec #: [id number] Physician: MARION COBOS MD-SNU Financial #: [id number] Pt. Type: O Room/Bed: Admit/Disch: 10/06/20 08:45:00 - 10/06/20 16:43:00 Institution: [facility] IntraOp Case Attendance Entry 1 Entry 2 Entry 3 Case Attendee MARION COBOS WASSON, SANDRA D, RN GULLETTE, NELSON, SCRUB MD-SNU TECH Role Performed Surgeon/Proceduralist, Forest Ecology Professor, First Scrub, First First Time In 10/06/20 [...] A, VITO ELIAS MD-ANS Role Performed Physician assistant associate professor CELL MANAGER/Nurse Conveyor Installer Anesthesiologist of Record Time In 10/06/20 11:57:00 [...] #1 JEROMY SAINI, RN Robyn Kumar, Diagnostic Thermostat Machine Tender Role Performed Student Forest Ecology Professor, Second Process Engineer Time In 10/06/20 11:57:00 10/06/20 11:57:00 10/06/20 [...] Modified By: CLARK JAUREGUI, SAYDA 10/06/20 12:44:32 [facility] IntraOp Case Attendance Audit 10/06/20 13:22:08 Clicking Machine Operator: WASSONSY Modifier: WASSONSY 1 <+> Time Out [...] Procedure Cervical Discectomy Fusion Anterior 10/06/20 12:44:32 Clicking Machine Operator: WASSONSY Modifier: WASSONSY 8 <+> Time Out 8 <*> Procedure Cervical Discectomy Fusion Anterior <+> 9 Case Attendee <+> 9 Role Performed <+> 9 Procedure <+> 10 Case Attendee <+> 10 Role Performed <+> 10 Procedure <+> 10 Other Attendee 10/06/20 12:15:00 Clicking Machine Operator: WASSONSY Modifier: WASSONSY 1 <*> Procedure Cervical [...] Procedure Cervical Discectomy Fusion Anterior 10/06/20 12:14:37 Clicking Machine Operator: WASSONSY Modifier: WASSONSY 1 <+> Time In [...] <+> 8 Role Performed <+> 8 Procedure [facility] IntraOp Case Times Entry 1 Patient In Room Time 10/06/20 11:57:00 Out Room Time 10/06/20 13:18:00 Anesthesia Start Time 10/06/20 11:57:00 Stop Time 10/06/20 13:19:00 Surgery / Procedure Times Start Time 10/06/20 12:27:00 Stop Time 10/06/20 13:12:00 Last Modified By: CLARK JAUREGUI RN 10/06/20 13:13:09 [facility] IntraOp Case Times Audit 10/06/20 13:22:05 Clicking Machine Operator: WASSONSY Modifier: WASSONSY <+> 1 Out Room Time <+> 1 Stop Time 10/06/20 13:13:09 Clicking Machine Operator: WASSONSY Modifier: WASSONSY <+> 1 Stop Time 10/06/20 12:28:55 Clicking Machine Operator: WASSONSY Modifier: WASSONSY <+> 1 Start Time [facility] IntraOp Cautery Entry 1 Entry 2 ESU Identification Cautery Type Monopolar ESU BiPolar ESU Cautery Type Comments ID Number [id number] ID Type Hospital Number Hospital Number Cautery [...] CLARK WATSON RN 10/06/20 12:19:57 10/06/20 12:19:57 [facility] IntraOp Cautery Audit 10/06/20 14:49:40 Clicking Machine Operator: WASSONSY Modifier: WASSONSY 1 <*> Grounding Pad Site Right thigh 10/06/20 12:46:50 Clicking Machine Operator: WASSONSY Modifier: WASSONSY 1 <*> Cautery Type BiPolar ESU 1 <*> Cut Setting 40 1 <*> Bipolar Setting 40 1 <+> Grounding Pad Site 1 <*> ID Number [id number] 1 <*> Grounding Pad Applied By CLARK JAUREGUI RN 2 <*> Cautery Type Monopolar ESU 2 <*> Cut Setting 40 2 <*> ID Number [id number] [facility] IntraOp Communication Entry 1 Communication To Family/Significant other Comment START Communication By JEROMY SAINI RN Date and Time 10/06/20 12:28:00 Last Modified By: CLARK JAUREGUI RN 10/06/20 12:14:46 [facility] IntraOp Communication Audit 10/06/20 12:28:37 Clicking Machine Operator: WASSONSY Modifier: WASSONSY <+> 1 Date and Time [facility] IntraOp Counts Verification Entry 1 Procedure Cervical Discectomy Fusion Anterior Count Info Count Type Sponge, Sharps Counts Verification Baseline/pre-procedure Sequence Count Results Correct, surgeon notified Counts Performed By Count Performed By NELSON NGUYEN SCRUB (Scrub) TECH Count Performed By CLARK JAUREGUI RN (RN) Last Modified By: CLARK JAUREGUI RN 10/06/20 12:46:58 [facility] IntraOp Counts Verification Audit 10/06/20 12:46:58 Clicking Machine Operator: WASSONSY Modifier: WASSONSY 1 <*> Procedure Cervical Discectomy Fusion Anterior 1 <*> Count Performed By (RN) NELSON NGUYEN SCRUB TECH [facility] IntraOp Counts Final Entry 1 Procedure Cervical Discectomy Fusion Anterior Final Count Info Count Type Sponge, Sharps, Miscellaneous Counts Verification Skin Closure/end of Sequence procedure Count Results Correct, surgeon notified Counts Performed By Count Performed By GULLETTE, NELSON, SCRUB (Scrub) TECH Count Performed By CLARK JAUREGUI RN (RN) Last Modified By: CLARK JAUREGUI RN 10/06/20 13:07:53 [facility] IntraOp Departure from OR Entry 1 Integumentary Assessment Integumentary WDL Assessment WDL Transfer/Handoff Transfer to PACU Phase I Handoff Method Bedside/Face to face, Phone call Handoff Reported to Jon Ruth RN Post-op Transport Stretcher/Gurney Via Patient Transport HEBERT GAMBOA, Accompanied by BERNICE BRUCE CRNA Last Modified By: CLARK JAUREGUI RN 10/06/20 12:47:18 [facility] IntraOp Departure from OR Audit 10/06/20 12:47:18 Clicking Machine Operator: HANG Modifier: WASSONSY <+> 1 Patient Transport Accompanied by <+> 1 Handoff Reported to [facility] IntraOp Dressing and Packing Entry 1 Type Dressing Location OP SITE Wound Dressing Item Steristrip, Other Applied By HEBERT GAMBOA Other Comments MASTISOL, STERISTRIPS, COVADERM Last Modified By: CLARK JAUREGUI RN 10/06/20 12:47:50 General Comments: COVERDERM [facility] IntraOp Dressing and Packing Audit 10/06/20 12:47:50 Clicking Machine Operator: HANG Modifier: WASSONSY 1 <*> Location 1 <*> Wound Dressing Item 1 <*> Applied By HEBERT GAMBOA 1 <*> Other Comments [facility] IntraOp Fire Risk Assessment Entry 1 Fire Info Surgical Site or 1- Yes Incision Above the Xyphoid Open O2 Source 0- No (Mask or Cannula) Available Ignition 1- Yes (ESU, Laser, Light Source) Fire Risk 2 Assessment Score Fire Score Fire Risk Yes Assessment Complete Fire Risk CLARK JAUREGUI grading supervisor Verified By Fire Risk 10/06/20 11:56:00 Assessment Verified Date/Time Fire Risk Standard Fire Yes Safety Precautions Followed Last Modified By: CLARK JAUREGUI RN 10/06/20 12:15:32 [facility] IntraOp Fire Risk Assessment Audit 10/06/20 12:48:04 Clicking Machine Operator: HANG Modifier: WASSONSY 1 <*> Fire Risk Assessment Verified By JEROMY SAINI RN 1 <*> Fire Risk Assessment Verified 10/06/20 12:15:00 Date/Time 10/06/20 12:28:03 Clicking Machine Operator: WASSONSY Modifier: WASSONSY <+> 1 Fire Risk Assessment Complete [facility] IntraOp General Case Superintendent Tests 1 Case Information OR OR 11 [facility] Case Level 1 Room Verified Yes Wound Class I - Clean Specialty SN Neurosurgery Anesthesia Type General ASA Class 3 Diagnosis Preop Diagnosis CERVICAL SPONDYLOSIS WITH MYELOPATHY Postop Same As Preop No Postop Diagnosis PLEASE SEE MD NOTES Last Modified By: CLARK JAUREGUI RN 10/06/20 12:16:32 [facility] IntraOp General Case Data Audit 10/06/20 12:16:32 Clicking Machine Operator: HANG Modifier: WASSONSY 1 <*> OR OR 09 [facility] 1 <+> ASA Class 1 <+> Anesthesia Type 1 <+> Postop Same As Preop 1 <+> Postop Diagnosis 1 <+> Room Verified [facility] IntraOp Implant Log Entry 1 Entry 2 Entry 3 Type Tissue Implant Implant (Synthetic) Implant (Synthetic) (Biologic) Implant Log Implant Type Hardware Hardware Tissue Implant Type Bone Implant BONE VIVIGEN FORMABLE CAGE EIT CIF H 5MM 8D CAGE EIT CIF H 5MM 8D Identification [id number] Description Implant Quantity 1 1 1 Implant Site OP SITE OP SITE OP SITE Implant Identification Model Number Implant [id number] Identification Serial Number Implant [id number] Identification Lot Number Implant Lifenet:Lifenet J&J:Depuy:Depuy Spine J&J:Depuy:Depuy Spine Identification Transplant Srv Buttonhole Facer Name: Implant [id number] Identification Catalog Number Implant Size Implant Has an Yes Yes Yes Expiration Date Implant Expiration 09/14/21 11/14/23 11/14/23 Date Wasted Radioactive Material Time Implanted Tissue Implant Continue for Tissue Implant Documentation Tissue Identification Number Graft Prep Per Buttonhole Facer Instructions: Tissue Preparation Method: Reconstitution Solution: Reconstitution Solution Lot Number Reconstitution Solution Expiration Date: Thawing Solution Thawing Solution Lot Number Thawing Solution Expiration Date Preparation Materials, Other Preparation Materials, Other Lot Number Preparation Materials, Other Expiration Date Tissue Prepared/Processed By Buttonhole Facer Paperwork Completed Implant Type Comment Last Modified By: CLARK JAUREGUI RN WASSON, SANDRA D RN CLARK JAUREGUI RN 10/06/20 12:52:08 10/06/20 12:57:34 10/06/20 12:58:46 Entry 4 Entry 5 Type Implant (Synthetic) Implant (Synthetic) Implant Log Implant Type Hardware Hardware Tissue Implant Type Implant PLT ANT SKYLN HYBRD SCR SKYLN VARI SD Identification [id number] Description Implant Quantity 1 6 Implant Site OP SITE OP SITE Implant Identification Model Number Implant Identification Serial Number Implant Identification Lot Number Implant J&J:Depuy:Depuy Spine J&J:Depuy:Depuy Spine Identification Buttonhole Facer Name: Implant [id number] Identification Catalog Number Implant Size Implant Has an Expiration Date Implant Expiration Date Wasted Radioactive Material Time Implanted Tissue Implant Continue for Tissue Implant Documentation Tissue Identification Number Graft Prep Per Buttonhole Facer Instructions: Tissue Preparation Method: Reconstitution Solution: Reconstitution Solution Lot Number Reconstitution Solution Expiration Date: Thawing Solution Thawing Solution Lot Number Thawing Solution Expiration Date Preparation Materials, Other Preparation Materials, Other Lot Number Preparation Materials, Other Expiration Date Tissue Prepared/Processed By Buttonhole Facer Paperwork Completed Implant Type Comment Last Modified By: CLARK JAUREGUI, CLARK WATSON RN 10/06/20 13:13:00 10/06/20 13:13:00 [facility] IntraOp Implant Log Audit 10/06/20 13:13:00 Clicking Machine Operator: WASSONSY Modifier: WASSONSY <+> 4 Implant Identification Description <+> 4 Implant Identification Buttonhole Facer Name: <+> 4 Implant Site <+> 4 Implant Quantity <+> 4 Implant Identification Catalog Number <+> 4 Implant Type <+> 4 Type <+> 5 Implant Identification Description <+> 5 Implant Identification Buttonhole Facer Name: <+> 5 Implant Site <+> 5 Implant Quantity <+> 5 Implant Identification Catalog Number <+> 5 Implant Type <+> 5 Type 10/06/20 12:58:46 Clicking Machine Operator: WASSONSY Modifier: WASSONSY <+> 3 Implant Identification Description <+> 3 Implant Identification Lot Number <+> 3 Implant Identification Buttonhole Facer Name: <+> 3 Implant Expiration Date <+> 3 Implant Site <+> 3 Implant Quantity <+> 3 Implant Identification Catalog Number <+> 3 Implant Type <+> 3 Implant Has an Expiration Date <+> 3 Type 10/06/20 12:57:34 Clicking Machine Operator: WASSONSY Modifier: WASSONSY <+> 2 Implant Identification Description <+> 2 Implant Identification Lot Number <+> 2 Implant Identification Buttonhole Facer Name: <+> 2 Implant Expiration Date <+> 2 Implant Site <+> 2 Implant Quantity <+> 2 Implant Identification Catalog Number <+> 2 Implant Type <+> 2 Implant Has an Expiration Date <+> 2 Type [facility] IntraOp Intraoperative Assessment Entry 1 Handoff Method [...] Modified By: CLARK JAUREGUI RN 10/06/20 12:48:18 [facility] IntraOp Intraoperative Assessment Audit 10/06/20 12:48:18 Clicking Machine Operator: HANG Modifier: WASSONSY 1 <*> Skin Assessment Verified Yes 1 <*> Handoff Method Bedside/Face to face, Phone call [facility] Intra Intraoperative Equipment Entry 1 Type Equipment Equipment Equipment Kg Suction System ID Number [id number] Setting 180 MM HG Intraop Monitoring Electrocardiogram Five lead placement (ECG) Electrode Placement Blood Pressure Non-Invasive BP Device Source Blood Pressure Arm, left lower Location Pulse Oximeter Hand, right Probe Site Antiembolic Devices Antiembolic Devices Sequential compression device, knee high Antiembolic Device Bilateral Location Antiembolic Device [id number] ID Number Scopes Photo/Video Documentation Photo No Video No Last Modified By: CLARK JAUREGUI RN 10/06/20 12:49:15 [facility] IntraOp Intraoperative Equipment Audit 10/06/20 12:49:15 Clicking Machine Operator: HANG Modifier: WASSONSY <+> 1 Photo <+> 1 Video <+> 1 ID Number <+> 1 Setting <+> 1 Electrocardiogram (ECG) Electrode Placement <+> 1 Blood Pressure Location <+> 1 Pulse Oximeter Probe Site <+> 1 Blood Pressure Source <+> 1 Antiembolic Device ID Number [facility] IntraOp Medication Admin Entry 1 Entry 2 Entry 3 Medication/Irrigant Bacitracin 50,00units lidocaine 1% w/ thrombin 5000units powder vial epinephrine 1:100,000 topical powder - 30ml vial - [id number] Combo Med List Time Administered Route of IRRIGATION LOCAL TOPICAL Administration Dose Dose 31432 10 5000 Unit of Measure units ml units Volume Administered By MARION COBOS, MARION COBOS MD-SNU MD-SNU Procedure Irrigation Irrigant Volume In Irrigant Volume Out Last Modified By: CLARK JAUREGUI, CLARK WATSON RN WASSON, SANDRA D, RN 10/06/20 12:31:00 10/06/20 12:31:00 10/06/20 12:31:00 Entry 4 Medication/Irrigant SPNG SURGFOAM [id number] Combo Med List Time Administered Route of TOPICAL Administration Dose Dose Unit of Measure Volume Administered By MARION COBOS MD-SNU Procedure Irrigation Irrigant Volume In Irrigant Volume Out Last Modified By: CLARK JAUREGUI RN 10/06/20 12:31:00 [facility] IntraOp Patient Positioning Entry 1 Procedure Cervical [...] Modified By: CLARK JAUREGUI RN 10/06/20 12:26:54 [facility] IntraOp Patient Positioning Audit 10/06/20 12:50:11 Clicking Machine Operator: WASSONSY Modifier: WASSONSY 1 <*> Procedure Cervical Discectomy Fusion Anterior 1 <*> Positioning Devices Arm Board, Pad, Arm, Pillows [facility] IntraOp Sign In Entry 1 Patient, Site, [...] Modified By: CLARK JAUREGUI RN 10/06/20 12:50:24 [facility] IntraOp Sign In Audit 10/06/20 12:50:24 Clicking Machine Operator: WASTONYSY Modifier: WASSONSY 1 <*> Allergies No 1 <*> Blood Identifiers Verified Per Not applicable Policy [facility] IntraOp Sign Out Entry 1 RN Confirmation [...] Modified By: CLARK JAUREGUI RN 10/06/20 12:29:20 [facility] IntraOp Sign Out Audit 10/06/20 13:22:22 Clicking Machine Operator: WASTONYSY Modifier: WASSONSY <+> 1 RN Sign Out Signature Date/Time 10/06/20 12:51:21 Clicking Machine Operator: WASSONSY Modifier: WASSONSY 1 <*> Specimen Labeled Correctly Yes 1 <+> RN Sign Out Signature [facility] IntraOp Skin Prep Entry 1 Procedure Cervical Discectomy Fusion Anterior Prescribed Yes Pre-Surgical Prep Completed Prep Area NECK AFTER ALCOHOL AND HIBICLENS PREP PER DR COBOS Intraop Prep Integumentary WDL Assessment WDL Prep Agents Alcohol, Chlorhexadine gluconate, DuraPrep Prep by JEROMY SAINI, RN Hair Removal Methods No hair removal performed Last Modified By: CLARK JAUREGUI RN 10/06/20 12:17:22 [facility] IntraOp Skin Prep Audit 10/06/20 12:51:04 Clicking Machine Operator: WASTONYSY Modifier: WASSONSY 1 <*> Prep Area NECK 1 <*> Procedure Cervical Discectomy Fusion Anterior 1 <*> Prep by MARION COBOS MD[facility] IntraOp Surgical Procedures Entry 1 Procedure Cervical Discectomy Fusion Anterior Additional (C4-6 ACDF) Procedure Description Primary Procedure Yes Primary Surgeon MARION COBOS MD-SNU Start 10/06/20 12:27:00 Stop 10/06/20 13:12:00 Anesthesia Type General Specialty SN Neurosurgery Wound Class I - Clean Last Modified By: CLARK JAUREGUI RN 10/06/20 12:19:31 [facility] IntraOp Surgical Procedures Audit 10/06/20 13:13:12 Clicking Machine Operator: WASSONSY Modifier: WASSONSY <+> 1 Stop 10/06/20 12:29:03 Clicking Machine Operator: WASSONSY Modifier: WASSONSY <+> 1 Start [facility] IntraOp Temp Regulation Devices Entry 1 Temp Regulation Temperature Forced Air Warming Regulation Device device Temperature 02611 Regulation Device Serial/Unit Number Temperature Lower body Regulation Site Temperature Device 43 C Setting Temperature BERNICE BRUCE CRNA Regulation Device Applied by Last Modified By: CLARK JAUREGUI RN 10/06/20 12:43:51 [facility] IntraOP Time Out Entry 1 Procedure to [...] Modified By: CLARK JAUREGUI RN 10/06/20 12:28:49 [facility] IntraOP Time Out Audit 10/06/20 12:28:49 Clicking Machine Operator: WASTONYSY Modifier: WASSONSY 1 <+> Time Out Pause Time 1 <*> Procedure to be Performed Cervical Discectomy Fusion Anterior 10/06/20 12:27:48 Clicking Machine Operator: HANG Modifier: HANG 1 <*> Beta Michelle [...] Performed in location of procedure after prepped/draped [facility] IntraOp X-Ray and Images Entry 1 X-Ray/Imaging Type Fluoroscopy Fluoroscopy Type C-Arm Site OP SITE Crime Scene Specialist Name Robyn Kumar, Diagnostic Thermostat Machine Tender Last Modified By: CLARK JAUREGUI RN 10/06/20 12:44:50 Case Comments <None> Finalized By: BO ALEX Document Signatures Signed By: CLARK JAUREGUI RN 10/06/20 14:49 CLARK JAUREGUI RN 10/06/20 13:22 BO ALEX 10/07/20 13:51 Unfinalized History Date/Time Username Reason for Unfinalizing Freetext Reason for Unfinalizing 10/06/20 14:49 HANG Correct Documentation 10/07/20 13:48 TOMAS Correct Billing Electronically signed by Ashwin [facility] [employer] Conversion Customer Service Officer Cerner at 01/07/2023 7:36 PM CDT documented in this encounter Plan of Treatment Not on file documented as of this encounter Visit Diagnoses Not on filedocumented in this encounter
--- OUTSIDE RECORDS SUMMARY | 2025-04-29 11:23 | XMS_ITS | Encounter Summary ---
Author Organization [employer] ([place], [place], [place], [place]) Address [address] [place] [address] Care Team Providers Care Mate Ship Name Role Phone Unavailable Primary Care Provider Unavailabl e Encounter Details Date Type Department Care Team (Late st Contact Info) Description 10/06/2020 Transcribed Document [facility] [place] Family Medicine [address] [place] [address] ProviderPat MD [address] [place] [address] Social History Tobacco Use Types [...] - Pat ProviderMD - 10/06/2020 12:[address] [facility] Main OR Preop Summary Primary Physician: MARION COBOS MD-SNU Finalized Date/Time: 10/06/20 15:23:47 Pt. Name: BUSHRA LUNDBERG D.O.B./Sex: 1965 Female Med Rec #: [id number] Physician: MARION COBOS MD-SNU Financial #: [id number] Pt. Type: O Room/Bed: Admit/Disch: 10/06/20 08:45:00 - Institution: [facility] PreOp Case Times Entry 1 In Preop 10/06/20 09:48:00 Ready for Holding n/a Room Patient Ready for 10/06/20 10:45:00 Surgery Patient Out of Preop 10/06/20 11:55:00 Patient Out of n/a Holding Room Last Modified By: Radha Hawley RN 10/06/20 12:19:10 [facility] PreOp Case Times Audit 10/06/20 12:19:10 Inner Tube Cutter: BRITTON Modifier: RAMEZALR <+> 1 Patient Out of Preop Finalized By: Radha Hawley, RN Document Signatures Signed By: Radha Hawley RN 10/06/20 15:23 documented in this encounter Plan of Treatment Not on file documented as of this encounter Visit Diagnoses Not on filedocumented in this encounter
--- OUTSIDE RECORDS SUMMARY | 2025-04-29 11:23 | XMS_ITS | Encounter Summary ---
Author Organization [employer] ([place], [place], [place], [place]) Address [address] [place] [address] Care Team Providers Care Collector Of Internal Revenue Name Role Phone Unavailable Primary Care Provider Unavailabl e Encounter Details Date Type Department Care Team (Late st Contact Info) Description 10/05/2020 Transcribed Document [facility] [place] Family Medicine [address] [place] [address] ProviderPat MD [address] [place] [address] Social History Tobacco Use Types [...] - Historical ProviderMD - 10/05/2020 1:[address] SUPERVISOR [facility] Authorization Entered On: 10/05/2020 13:54 EST Performed On: 10/05/2020 13:54 EST by REKHA BURNHAM Jewelry Bench Worker Primary Insurance Authorization Authorization and Policy Numbers : Insurance 1 Health Plan: [employer] [place] Policy Number: [id number] Authorization Number: Authorization Comments-Primary : pt is bruno for OUT PT Cervical Discectomy Fusion Anterior on Sun10-06-20 Historical Authorization Comments-Primary : No Authorization Comments Found REKHA BURNHAM, Jewelry Bench Worker - 10/05/2020 13:54 EST Electronically signed by Ashwin [facility] Conversion Resource Technician Cerner at 01/07/2023 7:37 PM CDT documented in this encounter Plan of Treatment Not on file documented as of this encounter Visit Diagnoses Not on filedocumented in this encounter
--- NOTE | 2025-04-29 11:47 | EXP.PAIN.SOA ---
[facility] Disclaimer: The information contained in this section may have been updated after the patient was seen, as this information can be updated by other users. Medical History Hypokalemia Thyroid nodule History of ulcer disease History of hyperlipidemia History of emphysema History of anxiety History of depression History of coronary artery disease Abnormal findings on diagnostic imaging of heart and coronary circulation Abnormal nuclear cardiac imaging test Obesity Pulmonary emphysema Dyspnea on exertion Lung nodule Thyroiditis Diastolic dysfunction Thyroid disease History of gastroesophageal reflux (GERD) Atypical chest pain Bigeminy PAC (premature atrial contraction) Generalized anxiety disorder Recurrent major depression resistant to treatment Dysphagia An EGD was done. Noted that her gastric sleeve was somewhat expanded. She also had dilatation done on her esophagus. Recommended repeat in approximately 3 years. Thyroiditis She also has hypothyroidism likely related to this. With her elevated TSH, I am going to increase her levothyroxine dose and recheck her levels. Metabolic syndrome Pre-diabetes Bilateral foot pain Abnormal weight Urinary incontinence Vitamin D deficiency Hypothyroidism Low back pain Knee pain Hyperlipidemia Hypertension Surgical History History of hysterectomy Status post gastric banding surgery 07/23/18 Family History Other Anxiety Coronary artery disease Depression Diabetes Hypertension No significant family history Obesity Social History Smoking Status: Former smoker smoking status stop date: November 2024 second hand exposure: No alcohol intake: never substance use type: denies use current occupational status: other Travel in the last 8 weeks?: None household members: spouse housing: house number of children: 2 current occupational exposures/hazards: No caffeine: Yes Have you lived/traveled outside US in past 30 days?: No Contact w/someone who lives/traveled outside US past 30 days?: No Exposure to someone with infectious disease in past 14 days?: No Do you have a fever (greater than 100.4 F or 38 C)?: No Have you tested positive for COVID-19?: No Exposed to someone with COVID-19 in past 14 days?: No Do you have a sore throat?: No Do you have a cough?: No Do you have any weakness?: No Do you have any diarrhea?: No Are you experiencing any unusual bleeding?: No Do you have any muscle aches/pain?: No Do you have any abdominal pain?: No Are you experiencing loss of taste or smell?: No PM Subjective & Objective Subjective Subjective:: Patient is a pleasant 60-year-old female who presents today for follow-up of her lumbar epidural steroid injection L4-L5 on 03/31/2025. Today she rates her pain a 4 out of 10. She does state that she had about 60% relief but it really only seem to last about 1 week. Patient states that she is still having the numbness and tingling into her legs. Patient feels like she is getting more more tolerance to the injections and they are just not worthwhile if they are only lasting temporarily. Patient does have a [employer] stimulator in place however has not had recent reprogramming. Patient was recently at her request sent in a refill of her pregabalin 75 mg from our office due to the Horizant not working as well. She states that she ended up talking to Dr. Wolfe's office yesterday and they do want her to try that medication longer before going back to the pregabalin. Patient states she has not picked up this prescription. Patient is prescribed compounded cream from our office and ropinirole for leg cramps. She denies any side effects. Her Edwin has been reviewed and is appropriate. Review of Systems: General: No recent weight changes, no fever, no sleep disturbances Respiratory: No cough, no shortness of air, no recurring pulmonary infections Cardiovascular/peripheral vascular: No chest pain, no palpitations, no edema, no shortness of breath Gastrointestinal: No new onset incontinence, normal bowel movements reported Genitourinary: No new onset incontinence Musculoskeletal: Low back pain, leg numbness tingling Psychiatric: [Normal mood/affect] Neurological: [Denies weakness in extremities], [denies balance issues] Pain at rest (0-10 scale): 4 Objective Objective:: Physical Exam: General: Alert and oriented x3, no acute distress, pleasant and cooperative Lungs: Respirations even and unlabored, symmetrical chest expansion Eyes: PERRL Musculoskeletal: Flexion and extension of lumbar [spine] somewhat guarded secondary to pain, [antalgic gait noted] Neurological: Speech clear, no gross sensory deficit Has patient had previous pain injection?: No Conservative treatment options previously tried: Home exercise plan Length of treatment: Longer than 12 weeks Meds Home Medications and Allergies Home Medications ?Medication ?Instructions ?Recorded ?Confirmed ?Type ergocalciferol (vitamin D2) 1,250 See Rx Instructions .Route 12/28/23 04/29/25 Rx mcg (50,000 unit) capsule .COMPLEX #14 caps cyclobenzaprine 10 mg tablet See Rx Instructions .Route 08/25/24 04/29/25 Rx .COMPLEX #30 tabs lisinopril 10 mg tablet 10 mg PO DAILY 90 days #90 tabs 10/28/24 04/29/25 Rx bupropion HCl 150 mg 24 hr tablet, 150 mg PO DAILY 11/07/24 04/29/25 History extended release pantoprazole 40 mg tablet,delayed 40 mg PO DAILY 11/07/24 04/29/25 History release aspirin 81 mg tablet,delayed 81 mg PO DAILY #30 tabs 01/08/25 04/29/25 Rx release (Adult Low Dose Aspirin) metoprolol succinate 25 mg 25 mg PO DAILY #90 tabs 01/08/25 04/29/25 Rx tablet,extended release 24 hr (Toprol XL) buspirone 10 mg tablet 10 mg PO TID PRN N/A 01/23/25 04/29/25 History gabapentin enacarbil 600 mg 600 mg PO HS #30 tabs 01/26/25 04/29/25 Rx tablet,extended release (Horizant ER) budesonide-formoterol HFA 160 2 puff inhalation BID 90 days 02/10/25 04/29/25 Rx mcg-4.5 mcg/actuation aerosol #10.2 grams inhaler levothyroxine 200 mcg capsule 200 mcg PO DAILY #30 caps 02/24/25 04/29/25 Rx levothyroxine 25 mcg tablet 25 mcg PO DAILY #60 tabs 02/24/25 04/29/25 Rx (Synthroid) amitriptyline 25 mg tablet 25 mg PO DIRECTED N/A 03/19/25 04/29/25 History cholecalciferol (vitamin D3) 1,250 1,250 mcg PO DIRECTED SUPPLIMENT 03/19/25 04/29/25 History mcg (50,000 unit) capsule duloxetine 60 mg capsule,delayed 60 mg PO DAILY #90 caps 03/25/25 04/29/25 Rx release atorvastatin 10 mg tablet See Rx Instructions .Route 04/08/25 04/29/25 Rx .COMPLEX #30 tabs cariprazine 3 mg capsule (Vraylar) See Rx Instructions .Route 04/08/25 04/29/25 Rx .COMPLEX #30 caps oxybutynin chloride 10 mg See Rx Instructions .Route 04/08/25 04/29/25 Rx tablet,extended release 24 hr .COMPLEX #30 tabs furosemide 40 mg tablet 20 mg PO DAILY 04/16/25 04/29/25 History spironolactone 25 mg tablet 25 mg PO DAILY 04/16/25 04/29/25 History duloxetine 30 mg capsule,delayed 30 mg PO DAILY #30 caps 04/22/25 04/29/25 Rx release New Prescriptions to Start Prescriptions: Allergies Allergy/AdvReac Type Severity Reaction Status Date / Time adhesive tape Allergy Rash Verified 04/29/25 08:50 Assessment and Plan *Assessment and plan (1) Lumbar radiculopathy: Status: Acute Category: Medical Code(s): M54.16 - Radiculopathy, lumbar region Plan I did discuss with her that I will reach out to [employer] for them to meet with her to do additional reprogramming on her stimulator and see if we can get better coverage for the additional numbness and tingling into her legs. I will also increase her concentration of her compounded cream. Patient was counseled that that is fine regarding the pregabalin that she can just call us and let us know like she just did recently if she would like us to refill that medication if the Horizant never does provide improvement. Patient will call us for us for her next appointment follow-up. Patient has been instructed to contact the clinic with any concerns before the next appointment. Dr. Wallis has reviewed this note and agrees with this plan of care. This note was dictated using voice recognition software and make contain errors or omissions. All injections are used with Lidocaine, Bupivacaine and dexamethasone. Occasionally urine drug screen is needed to verify patient's compliance with our office pain contract. This is ordered based off specific treatments related to chronic pain with the potential to abuse certain medications.
[2025-04-29 12:55] VITALS: BP 116/78; PULSE 57; RESP 14; O2SAT 98; BMI 43.4
== END 2025-04-29 23:59 | disposition home or self-care (01) ==
LOC: SC.PAIN 11:12
PROVIDERS: PCP Internal Medicine; Visit Provider Nurse Practitioner Family
DX: M54.16 Radiculopathy, lumbar region (principal); Z79.899 Other long term (current) drug therapy
CPT/HCPCS: 99212; G0463

== ENCOUNTER 2025-05-06 07:02 | Outpatient (CLI) | payer MEDICAID, SELFPAY ==
--- OUTSIDE RECORDS SUMMARY | 2025-05-06 07:05 | XMS_ITS | Encounter Summary ---
Author Organization [employer] ([place], [place], [place], [place]) Address [address] [place] [address] Care Team Providers Care Lead Slot Technician Name Role Phone Unavailable Primary Care Provider Unavailabl e Encounter Details Date Type Department Care Team (Late st Contact Info) Description 04/06/2021 Transcribed Document [facility] Family Medicine [facility] [place] [address] ProviderPat MD [address] [place] [address] Social History Tobacco Use Types [...] Pat ProviderMD - 04/06/2021 11:42 AM CDT [facility] Main OR IntraOp Summary Primary Physician: MARION COBOS MD-SNU Finalized Date/Time: 04/07/21 13:03:57 Pt. Name: MELANIE LUNDBERG D.O.B./Sex: 1965 Female Med Rec #: [id number] Physician: MARION COBOS MD-SNU Financial #: [id number] Pt. Type: O Room/Bed: ASA/3 Admit/Disch: 04/06/21 06:47:00 - 04/06/21 15:30:00 Institution: [facility] IntraOp Case Attendance Entry 1 Entry 2 Entry 3 Case Attendee MARION COBOS WASSON, SANDRA D RN NELSON NGUYEN, MADELEINE NEGRETE-SNU TECH Role Performed Surgeon/Proceduralist, Extractor Operator, First Scrub, First First Time In [...] D, VITO MERLOS MD-ANS Role Performed Physician assistant men's lacrosse coach INVENTORY AND PRICING ASSOCIATE/Nurse Recruiting Internship Anesthesiologist of Record Time In 04/06/21 11:15:00 [...] ATTENDEE #1 Hema Schreiber, Robyn Sales, Diagnostic Bar Back Role Performed Vendor Scrub, Second Washer Meat Time In 04/06/21 11:15:00 04/06/21 11:15:00 04/06/21 [...] Lydia Cordero, Rn Role Performed Scrub, First Extractor Operator, First Time In 04/06/21 11:57:00 04/06/21 12:00:00 Time Out 04/06/21 13:04:00 04/06/21 13:04:00 Procedure Cervical Discectomy Cervical Discectomy Fusion Anterior Fusion Anterior Other Attendee LUNCH RELIEF LUNCH Superficial Wound Closed By: Last Modified By: CLARK JAUREGUI RN WASSON, SANDRA D, RN 04/06/21 13:03:22 04/06/21 13:03:22 [facility] IntraOp Case Attendance Audit 04/06/21 13:03:22 Clinical Informatics Physician: WASSONSY Modifier: WASSONSY 1 <+> Time Out [...] Procedure Cervical Discectomy Fusion Anterior 04/06/21 12:05:52 Clinical Informatics Physician: WASSONSY Modifier: WASSONSY <+> 11 Case Attendee <+> 11 Role Performed <+> 11 Time In <+> 11 Procedure <+> 11 Other Attendee 04/06/21 11:57:37 Clinical Informatics Physician: WASSONSY Modifier: WASSONSY <+> 10 Case Attendee <+> 10 Role Performed <+> 10 Time In <+> 10 Procedure <+> 10 Other Attendee 04/06/21 11:57:14 Clinical Informatics Physician: WASSONSY Modifier: WASSONSY 1 <*> Procedure Cervical [...] Procedure Cervical Discectomy Fusion Anterior 04/06/21 11:53:13 Clinical Informatics Physician: WASSONSY Modifier: WASSONSY 1 <*> Procedure Cervical [...] Role Performed <+> 9 Procedure 04/06/21 11:48:20 Clinical Informatics Physician: WASSONSY Modifier: WASSONSY <+> 8 Case Attendee <+> 8 Role Performed <+> 8 Time Out <+> 8 Procedure 04/06/21 11:47:37 Clinical Informatics Physician: WASSONSY Modifier: WASSONSY 1 <+> Time In [...] Anterior 7 <*> Other Attendee BRANDYN RICHARDSON [facility] IntraOp Case Times Entry 1 Patient In Room Time 04/06/21 11:15:00 Out Room Time 04/06/21 13:04:00 Anesthesia Start Time 04/06/21 11:15:00 Stop Time 04/06/21 13:04:00 Surgery / Procedure Times Start Time 04/06/21 11:42:00 Stop Time 04/06/21 12:57:00 Last Modified By: CLARK JAUREGUI RN 04/06/21 13:03:11 [facility] IntraOp Case Times Audit 04/06/21 13:03:11 Clinical Informatics Physician: HANG Modifier: WASSONSY <+> 1 Out Room Time <+> 1 Stop Time <+> 1 Stop Time 04/06/21 11:46:55 Clinical Informatics Physician: HANG Modifier: WASSONSY <+> 1 Start Time [facility] IntraOp Cautery Entry 1 Entry 2 ESU Identification Cautery Type Monopolar ESU BiPolar ESU Cautery Type Comments ID Number [id number] ID Type Hospital Number Hospital Number Cautery [...] CLARK JAUREGUI RN 04/06/21 11:49:21 04/06/21 11:50:42 [facility] IntraOp Cautery Audit 04/06/21 11:50:42 Clinical Informatics Physician: HANG Modifier: JUVENTINOSY 2 <*> ID Number [id number] [facility] IntraOp Communication Entry 1 Communication To Family/Significant other Comment START Communication By CLARK JAUREGUI RN Date and Time 04/06/21 11:46:00 Last Modified By: CLARK JAUREGUI RN 04/06/21 11:47:05 [facility] IntraOp Counts Verification Entry 1 Procedure Cervical Discectomy Fusion Anterior Count Info Count Type Sponge, Sharps, Miscellaneous Counts Verification Baseline/pre-procedure Sequence Count Results Not Applicable Counts Performed By Count Performed By Hema Schreiber, SARAH (Scrub) Count Performed By CLARK JAUREGUI RN (RN) Last Modified By: CLARK JAUREGUI RN 04/06/21 11:48:27 [facility] IntraOp Counts Verification Audit 04/06/21 11:48:27 Clinical Informatics Physician: WASSONSY Modifier: WASSONSY 1 <*> Procedure Cervical Discectomy Fusion Anterior 1 <+> Count Performed By (Scrub) [facility] IntraOp Counts Final Entry 1 Procedure Cervical Discectomy Fusion Anterior Final Count Info Count Type Sponge, Sharps, Miscellaneous Counts Verification Skin Closure/end of Sequence procedure Count Results Correct, surgeon notified Counts Performed By Count Performed By Hema Schreiber CST (Scrub) Count Performed By CLARK JAUREGUI, RN (RN) Last Modified By: CLARK JAUREGUI RN 04/06/21 12:49:55 [facility] IntraOp Counts Final Audit 04/06/21 12:49:55 Clinical Informatics Physician: WASSONSY Modifier: WASSONSY 1 <*> Procedure Cervical Discectomy Fusion Anterior 1 <+> Count Performed By (Scrub) 1 <+> Count Performed By (RN) [facility] IntraOp Cultures and Spec Summary Entry 1 Cultrures and Specimens Specimen Ordered: Yes Test(s) Routine/Path-Lab Requested/Final Disposition Last Modified By: CLARK JAUREGUI RN 04/06/21 11:47:49 General Comments: A. EXPLANTED HARDWARE [facility] IntraOp Departure from OR Entry 1 Integumentary Assessment Integumentary WDL Assessment WDL Transfer/Handoff Transfer to PACU Phase I Handoff Method Phone call Post-op Transport Stretcher/Gurney Via Patient Transport LEANNE RUIZ, NA, Accompanied by HEBERT GAMBOA Last Modified By: CLARK JAUREGUI RN 04/06/21 12:06:34 [facility] IntraOp Departure from OR Audit 04/06/21 12:06:34 Clinical Informatics Physician: HANG Modifier: WASSONSY <+> 1 Patient Transport Accompanied by [facility] IntraOp Dressing and Packing Entry 1 Type Dressing Location NECK Wound Dressing Item [place] Applied By HEBERT GAMBOA Other Comments OINTMENT, COVADERM Last Modified By: CLARK JAUREGUI RN 04/06/21 12:07:25 [facility] IntraOp Fire Risk Assessment Entry 1 Fire Info Surgical Site or 1- Yes Incision Above the Xyphoid Open O2 Source 0- No (Mask or Cannula) Available Ignition 1- Yes (ESU, Laser, Light Source) Fire Risk 2 Assessment Score Fire Score Fire Risk Yes Assessment Complete Fire Risk CLARK JAUREGUI, decorating and assembly supervisor Verified By Fire Risk 04/06/21 11:14:00 Assessment Verified Date/Time Fire Risk Standard Fire Yes Safety Precautions Followed Last Modified By: CLARK JAUREGUI RN 04/06/21 11:50:47 [facility] IntraOp Fire Risk Assessment Audit 04/06/21 11:50:47 Clinical Informatics Physician: HANG Modifier: WASSONSY <+> 1 Fire Risk Assessment Verified By [facility] IntraOp General Case Barrel Finisher 1 Case Information OR OR 11 [facility] Case Level 1 Room Verified Yes Wound Class I - Clean Specialty Neurosurgery Anesthesia Type General ASA Class 3 Diagnosis Preop Diagnosis CERVICAL RADICULOPATHY Postop Same As Preop No Postop Diagnosis SEE MD POST OP NOTE Last Modified By: CLARK JAUREGUI RN 04/06/21 11:49:40 [facility] IntraOp General Case Data Audit 04/06/21 11:49:40 Clinical Informatics Physician: HANG Modifier: WASSONSY 1 <*> OR OR 09 [facility] 1 <+> ASA Class 1 <+> Room Verified [facility] IntraOp Implant Log Entry 1 Entry 2 Entry 3 Type Tissue Implant Implant (Synthetic) Implant (Synthetic) (Biologic) Implant Log Implant Type Hardware Hardware Tissue Implant Type Bone Implant BONE VIVIGEN FORMABLE CAGE EIT CIF H 6MM 8DEG PLT ANT SKYLN HYBRD Identification [id number] Description Implant Quantity 1 1 1 Implant Site CERIVAL CERVICAL SPINE OP SITE Implant Identification Model Number Implant [id number] Identification Serial Number Implant [id number] Identification Lot Number Implant Lifenet:Lifenet J&J:Depuy:Depuy Spine J&J:Depuy:Depuy Spine Identification Transplant Srv Leave Coordinator Name: Implant [id number] Identification Catalog Number Implant Size Implant Has an Yes Yes Expiration Date Implant Expiration 02/23/22 02/14/25 Date Wasted Radioactive Material Time Implanted Tissue Implant Continue for Tissue Implant Documentation Tissue Identification Number Graft Prep Per Yes Leave Coordinator Instructions: Tissue Preparation Thawed Method: Reconstitution Solution: Reconstitution Solution Lot Number Reconstitution Solution Expiration Date: Thawing Solution NACL Thawing Solution [id number] Lot Number Thawing Solution 12/16/22 Expiration Date Preparation Materials, Other Preparation Materials, Other Lot Number Preparation Materials, Other Expiration Date Tissue Hema Schreiber, SARAH Prepared/Processed By Leave Coordinator Yes Paperwork Completed Implant Type Comment Last Modified By: CLARK JAUREGUI RN WASSON, SANDRA D, RN WASSON, SANDRA D, RN 04/06/21 12:38:32 04/06/21 12:38:32 04/06/21 12:49:39 Entry 4 Entry 5 Type Implant (Synthetic) Implant (Synthetic) Implant Log Implant Type Hardware Hardware Tissue Implant Type Implant SCR SKYLN VARI-OVSZ SCR SKYLN VARI SD Identification [id number] Description Implant Quantity 6 2 Implant Site OP SITE OP SITE Implant Identification Model Number Implant Identification Serial Number Implant Identification Lot Number Implant J&J:Depuy:Depuy Spine J&J:Depuy:Depuy Spine Identification Leave Coordinator Name: Implant [id number] Identification Catalog Number Implant Size Implant Has an Expiration Date Implant Expiration Date Wasted Radioactive Material Time Implanted Tissue Implant Continue for Tissue Implant Documentation Tissue Identification Number Graft Prep Per Leave Coordinator Instructions: Tissue Preparation Method: Reconstitution Solution: Reconstitution Solution Lot Number Reconstitution Solution Expiration Date: Thawing Solution Thawing Solution Lot Number Thawing Solution Expiration Date Preparation Materials, Other Preparation Materials, Other Lot Number Preparation Materials, Other Expiration Date Tissue Prepared/Processed By Leave Coordinator Paperwork Completed Implant Type Comment Last Modified By: CLARK JAUREGUI RN WASSON, SANDRA D, RN 04/06/21 12:49:39 04/06/21 12:49:39 [facility] IntraOp Implant Log Audit 04/06/21 12:49:39 Clinical Informatics Physician: HANG Modifier: JENNIFERTONYROSALIA <+> 3 Implant Identification Description <+> 3 Implant Identification Leave Coordinator Name: <+> 3 Implant Site <+> 3 Implant Quantity <+> 3 Implant Identification Catalog Number <+> 3 Implant Type <+> 3 Type <+> 4 Implant Identification Description <+> 4 Implant Identification Leave Coordinator Name: <+> 4 Implant Site <+> 4 Implant Quantity <+> 4 Implant Identification Catalog Number <+> 4 Implant Type <+> 4 Type <+> 5 Implant Identification Description <+> 5 Implant Identification Leave Coordinator Name: <+> 5 Implant Site <+> 5 Implant Quantity <+> 5 Implant Identification Catalog Number <+> 5 Implant Type <+> 5 Type [facility] IntraOp Intraoperative Assessment Entry 1 Handoff [...] Modified By: CLARK JAUREGUI RN 04/06/21 11:49:53 [facility] IntraOp Intraoperative Equipment Entry 1 Type Equipment Equipment Equipment Kg Suction System ID Number [id number] Setting 160 MM HG Intraop Monitoring Electrocardiogram Five lead placement (ECG) Electrode Placement Blood Pressure Non-Invasive BP Device Source Blood Pressure Arm, left upper Location Pulse Oximeter Hand, right Probe Site Antiembolic Devices Antiembolic Devices Sequential compression device, knee high Antiembolic Device Bilateral Location Antiembolic Device [id number] ID Number Scopes Photo/Video Documentation Photo No Video No Last Modified By: CLARK JAUREGUI RN 04/06/21 11:50:32 [facility] IntraOp Medication Admin Entry 1 Entry 2 Entry 3 Medication/Irrigant lidocaine 1% w/ SPNG SURGFOAM thrombin 5000units epinephrine 1:100,000 [id number] topical powder - 30ml vial - [id number] Combo Med List Time Administered Route of [...] Entry 4 Medication/Irrigant vancomycin 1Gm vial - [id number] Combo Med List Time Administered Route of ADDED TO NS IRRIGATIION Administration Dose Dose 1 Unit of Measure gram Volume Administered By MARION COBOS MD-SNRaquel Procedure Irrigation Irrigant Volume In Irrigant Volume Out Last Modified By: CLARK JAUREGUI RN 04/06/21 11:55:23 [facility] IntraOp Patient Positioning Entry 1 Procedure [...] Modified By: CLARK JAUREGUI RN 04/06/21 11:52:27 [facility] IntraOp Sign In Entry 1 Patient, [...] Modified By: CLARK JAUREGUI RN 04/06/21 11:55:41 [facility] IntraOp Sign Out Entry 1 RN [...] Modified By: CLARK JAUREGUI RN 04/06/21 13:03:21 [facility] IntraOp Sign Out Audit 04/06/21 13:03:21 Clinical Informatics Physician: HANG Irizarry: JUVENTINOSY <+> 1 RN Sign Out Signature Date/Time [facility] IntraOp Skin Prep Entry 1 Procedure Cervical Discectomy Fusion Anterior Prescribed Yes Pre-Surgical Prep Completed Prep Area OP SITE AFTER ALCOHOL AND HIBICLENS PREP PER DR PAPITO Intraop Prep Integumentary WDL Assessment WDL Prep Agents Alcohol, Chlorhexadine gluconate, DuraPrep Prep by CLARK JAUREGUI, RN Hair Removal Methods No hair removal performed Last Modified By: CLARK JAUREGUI RN 04/06/21 11:52:57 [facility] IntraOp Surgical Procedures Entry 1 Procedure Cervical Discectomy Fusion Anterior Additional (C6-7 ACDF WITH Procedure REVISION OF C4-6 Description HARDWARE) Primary Procedure Yes Primary Surgeon MARION COBOS MD-SNU Start 04/06/21 11:42:00 Stop 04/06/21 12:57:00 Anesthesia Type General Specialty Neurosurgery Wound Class I - Clean Last Modified By: CLARK JAUREGUI RN 04/06/21 13:03:14 General Comments: ANCEF 2 GRAM IV PER ANESTHESIA [facility] IntraOp Surgical Procedures Audit 04/06/21 13:03:14 Clinical Informatics Physician: HANG Modifier: WASSONSY 1 <*> Stop 1 <*> Stop [facility] IntraOP Time Out Entry 1 Procedure [...] Modified By: CLARK JAUREGUI RN 04/06/21 11:44:18 [facility] IntraOp X-Ray and Images Entry 1 X-Ray/Imaging Type Fluoroscopy Fluoroscopy Type C-Arm Site OP SITE [employer] Shift Lead Name Robyn Kumar, Diagnostic Bar Back Last Modified By: CLARK JAUREGUI RN 04/06/21 [...]
--- OUTSIDE RECORDS SUMMARY | 2025-05-06 07:05 | XMS_ITS | Encounter Summary ---
Author Organization [employer] ([place], [place], [place], [place]) Address [address] [place] [address] Care Team Providers Care Rv Parts And Service Director Name Role Phone Unavailable Primary Care Provider Unavailabl e Encounter Details Date Type Department Care Team (Late st Contact Info) Description 10/06/2020 Transcribed Document [facility] [place] [address] [place] [address] ProviderPat MD [address] [place] [address] Social History Tobacco Use Types [...] - Pat ProviderMD - 10/06/2020 12:27 PM PHOTO GRAPHICS LIBRARIAN [facility] Main OR Preop Summary Primary Physician: MARION COBOS MD-SNU Finalized Date/Time: 10/06/20 15:23:47 Pt. Name: BUSHRA LUNDBERG D.O.B./Sex: 1965 Female Med Rec #: [id number] Physician: MARION COBOS MD-SNU Financial #: [id number] Pt. Type: O Room/Bed: Admit/Disch: 10/06/20 08:45:00 - Institution: [facility] PreOp Case Times Entry 1 In Preop 10/06/20 09:48:00 Ready for Holding n/a Room Patient Ready for 10/06/20 10:45:00 Surgery Patient Out of Preop 10/06/20 11:55:00 Patient Out of n/a Holding Room Last Modified By: Radha Hawley RN 10/06/20 12:19:10 [facility] PreOp Case Times Audit 10/06/20 12:19:10 Casting Carrier: BRITTON Modifier: RAMEZALR <+> 1 Patient Out of Preop Finalized By: Radha Hawley, RN Document Signatures Signed By: Radha Hawley RN 10/06/20 15:23 Electronically signed by Ashwin [facility] Conversion Animal Keeper Head Cerner at 01/07/2023 7:30 PM CDT documented in this encounter Plan of Treatment Not on file documented as of this encounter Visit Diagnoses Not on filedocumented in this encounter
--- OUTSIDE RECORDS SUMMARY | 2025-05-06 07:05 | XMS_ITS | Encounter Summary ---
Author Organization [email or web address] ([place], [place], [place], [place]) Address [address] [place] [address] Care Team Providers Care Marine Engine Driver Name Role Phone Unavailable Primary Care Provider Unavailabl e Encounter Details Date Type Department Care Team (Late st Contact Info) Description 04/06/2021 Transcribed Document [facility] [place] [facility] [place] [address] ProviderPat MD [address] [place] [address] Social History Tobacco Use Types [...] ProviderMD - 04/06/2021 11:42 AM CDT [facility] Main OR Preop Summary Primary Physician: MARION COBOS MD-SNU Finalized Date/Time: 04/06/21 12:32:08 Pt. Name: BUSHRA LUNDBERG D.O.B./Sex: 1965 Female Med Rec #: [id number] Physician: MARION COBOS MD-SNU Financial #: [id number] Pt. Type: O Room/Bed: ASA/3 Admit/Disch: 04/06/21 06:47:00 - Institution: [facility] PreOp Case Times Entry 1 In Preop 04/06/21 08:53:00 Ready for Holding n/a Room Patient Ready for 04/06/21 10:00:00 Surgery Patient Out of Preop 04/06/21 11:11:00 Patient Out of n/a Holding Room Last Modified By: ANA LORD RN 04/06/21 12:32:01 [facility] PreOp Case Times Audit 04/06/21 12:32:01 Medical Records Receptionist: KODAK Modifier: MISTYHATFIELD <+> 1 Patient Out of Preop 04/06/21 10:12:28 Medical Records Receptionist: KODAK Modifier: MISTYHATFIELD 1 <*> Patient Ready for Surgery 04/06/21 10:12:00 Finalized By: ANA LORD RN Document Signatures Signed By: ANA LORD RN 04/06/21 12:32 Electronically signed by Ashwin [facility] Conversion Fence Erector Cerner at 01/07/2023 7:30 PM CDT documented in this encounter Plan of Treatment Not on file documented as of this encounter Visit Diagnoses Not on filedocumented in this encounter
--- OUTSIDE RECORDS SUMMARY | 2025-05-06 07:05 | XMS_ITS | Encounter Summary ---
Author Organization [employer] ([place], [place], [place], [place]) Address [address] [place] [address] Care Team Providers Care Carding Doubler Name Role Phone Unavailable Primary Care Provider Unavailabl e Encounter Details Date Type Department Care Team (Late st Contact Info) Description 04/06/2021 Transcribed Document [facility] [address] [facility] [address] [place] [address] Srinivas Melendez MD [address] [facility] [address] [place] [address] Social History Tobacco Use Types [...] Problems PN (peripheral neuropathy) / SNOMED CT 723161442 / Confirmed Neck pain / SNOMED CT 067472839 / Confirmed Hypothyroid / SNOMED CT 71807845 / Confirmed HTN (hypertension) / SNOMED CT 0811444459 / Confirmed HLD (hyperlipidemia) / SNOMED CT 05925682 / Confirmed GERD (gastroesophageal reflux disease) / SNOMED CT 955724709 / Confirmed Depression / SNOMED CT 01586827 / Confirmed Back pain / SNOMED CT 703444975 / Confirmed At risk for sleep apnea / IMO 84087034 / Confirmed Anxiety / SNOMED CT 19864352 / Confirmed, Active Problems (10) Anxiety At [...] RUE weakness, LLE weakness. Integumentary: Warm, Dry, [place]. Neurologic: Alert, Oriented. Psychiatric: Cooperative, Appropriate mood [...]
--- OUTSIDE RECORDS SUMMARY | 2025-05-06 07:05 | XMS_ITS | Encounter Summary ---
Author Organization [employer] ([place], [place], [place], [place]) Address [address] [place] [address] Care Team Providers Care Supervisor Detasseling Crew Name Role Phone Unavailable Primary Care Provider Unavailabl e Encounter Details Date Type Department Care Team (Late st Contact Info) Description 04/01/2021 Transcribed Document [facility] [place] [facility] [place] [address] ProviderPat MD [address] [place] [address] Social History Tobacco Use Types [...] Source : Measured Height Entry Format : [place] Height, Feet : 0 ft(Converted to: 0 cm, 0 Inch) Height, Inches : 63.5 Inch(Converted to: 5 ft 3 Inch, 161.29 cm) Clinical Height : 161.29 cm Weight Source : Standing scale Weight Entry Format : [place] Clinical Dosing Weight : 110.94 kg Weight, Pounds : 244 lb Weight, Ounces : 1 oz Body Surface Area (BSA) : 2.12 m2 Body Mass Index : 42.6 kg/m2 (>HHI) [place] Body Weight : 53 kg ROBERT HOLBROOK RN - 04/04/2021 8:07 EDT Health Histories Smoking Status : Former smoker, quit more than 30 days ago Smokeless Tobacco Status : Never Implant/Device Type, General Internal Medicine Physician and Model : hardware in neck Anthony [...] : Yes Spiritual/Cultural Needs Comment : 04/06 Restorationism Preference : Sabianism ([employer] [place]) Spiritual/Cultural Needs Comment : 04/06 Anthony Cullen Rn - 04/01/2021 9:58 EDT [place] Suicide Severity Rating Scale (C-SSRS) CSSRS Past [...] Info Legal Guardian : Friend Support Person/Patient Development Writer : Yes Support Person/Pt Rep Name : Lena Chapman - friend Support Person/Pt Rep Contact Information : [phone] Want Family/Rep/Phys Notified of Admit : No Emergency Contact #1 : ` Emergency Contact #1 Phone Number : ` Emergency Contact #1 Relationship : ` Emergency Contact #2 : ` Emergency Contact #2 Phone Number : ` Emergency Contact #2 Relationship : ` Primary Language : Urdu Communication Barrier : None Road Advisor Needed : No Anthony Cullen Rn - [...]
--- OUTSIDE RECORDS SUMMARY | 2025-05-06 07:05 | XMS_ITS | Encounter Summary ---
Author Organization [employer] ([place], [place], [place], [place]) Address [address] [place] [address] Care Team Providers Care Production Support Manager Name Role Phone Unavailable Primary Care Provider Unavailabl e Encounter Details Date Type Department Care Team (Late st Contact Info) Description 10/06/2020 Transcribed Document [facility] [place] Family Medicine [address] [place] [address] ProviderPat MD [address] [place] [address] Social History Tobacco Use Types [...] - Pat ProviderMD - 10/06/2020 12:27 PM CANDY STARCH MOLD PRINTER [facility] Main OR PostOp Summary Primary Physician: MARION COBOS MD-SNU Finalized Date/Time: 10/06/20 17:50:53 Pt. Name: BUSHRA LUNDBERG D.O.B./Sex: 1965 Female Med Rec #: [id number] Physician: MARION COBOS MD-SNU Financial #: [id number] Pt. Type: O Room/Bed: Admit/Disch: 10/06/20 08:45:00 - Institution: [facility] Main OR PostOp Case Times Entry 1 In PACU II 10/06/20 15:34:00 Ready for PACU II 01/20/21 16:15:00 Discharge Discharge from PACU 10/06/20 16:43:00 II Last Modified By: JAYDA PAUL RN 10/06/20 17:46:19 Finalized By: JAYDA PAUL RN Document Signatures Signed By: JAYDA PAUL RN 10/06/20 17:[address] [facility] Conversion Clinical Services Director Cerner at 01/07/2023 7:37 PM CDT documented in this encounter Plan of Treatment Not on file documented as of this encounter Visit Diagnoses Not on filedocumented in this encounter
--- OUTSIDE RECORDS SUMMARY | 2025-05-06 07:05 | XMS_ITS | Encounter Summary ---
Author Organization [employer] ([place], [place], [place], [place]) Address [address] [place] [address] Care Team Providers Care Hvac Mechanical Engineer Name Role Phone Unavailable Primary Care Provider Unavailabl e Encounter Details Date Type Department Care Team (Late st Contact Info) Description 10/06/2020 Transcribed Document [facility] [place] [address] [place] [address] ProviderPat MD [address] [place] [address] Social History Tobacco Use Types [...] - Pat ProviderMD - 10/06/2020 12:27 PM PIZZA DELIVERY DRIVER [facility] Main OR PACU Summary Primary Physician: MARION COBOS MD-SNU Finalized Date/Time: 10/06/20 15:35:11 Pt. Name: BUSHRA LUNDBERG D.O.B./Sex: 1965 Female Med Rec #: [id number] Physician: MARION COBOS MD-MIKO Financial #: [id number] Pt. Type: O Room/Bed: Admit/Disch: 10/06/20 08:45:00 - Institution: [facility] Main OR PACU I Case Times Entry 1 In PACU I 10/06/20 13:20:00 Ready for PACU 10/06/20 14:25:00 Discharge Discharge from PACU 10/06/20 15:25:00 I Last Modified By: CINDY AGUIRRE RN 10/06/20 15:34:39 [facility] Main OR PACU Acuity Entry 1 Start Time 10/06/20 14:25:00 Stop Time 10/06/20 15:25:00 Acuity Level [facility] PACU Acuity I Last Modified By: CINDY AGUIRRE RN 10/06/20 15:35:08 Finalized By: CINDY AGUIRRE, RN Document Signatures Signed By: CINDY AGUIRRE RN 10/06/20 15:35 Electronically signed by Ashwin [facility] Conversion State Federal Relations Deputy Director Cerner at 01/07/2023 7:31 PM CDT documented in this encounter Plan of Treatment Not on file documented as of this encounter Visit Diagnoses Not on filedocumented in this encounter
--- OUTSIDE RECORDS SUMMARY | 2025-05-06 07:05 | XMS_ITS | Encounter Summary ---
Author Organization [employer] ([place], [place], [place], [place]) Address [address] [place] [address] Care Team Providers Care Bottle Assembler Name Role Phone Unavailable Primary Care Provider Unavailabl e Encounter Details Date Type Department Care Team (Late st Contact Info) Description 10/06/2020 Transcribed Document [facility] [address] [facility] [address] [place] [address] Srinivas Melendez MD [address] [facility] [address] [place] [address] Social History Tobacco Use Types [...] Problems PN (peripheral neuropathy) / SNOMED CT 573341300 / Confirmed Neck pain / SNOMED CT 373608102 / Confirmed Hypothyroid / SNOMED CT 46894680 / Confirmed HTN (hypertension) / SNOMED CT 2609346781 / Confirmed HLD (hyperlipidemia) / SNOMED CT 71092654 / Confirmed GERD (gastroesophageal reflux disease) / SNOMED CT 278830968 / Confirmed Depression / SNOMED CT 04919770 / Confirmed Back pain / SNOMED CT 328957783 / Confirmed At risk for sleep apnea / IMO 63743254 / Confirmed Anxiety / SNOMED CT 86097535 / Confirmed, Active Problems (10) Anxiety At [...] EST Height Source Measured Height Entry Format [place] Height/Length, MOZAMBICAN (ft) 5 ft Height/Length [place] 3 Inch CLINICALHEIGHT 160.02 cm [place] Body Weight 52 kg Weight Source Standing scale Weight Entry Format [place] Weight [place] lb 244 lb CLINICALWEIGHT 110.91 kg Body [...] ROM neck, RUE weakness. Integumentary: Warm, Dry, [place]. Neurologic: Alert, Oriented. Psychiatric: Cooperative, Appropriate mood & affect. Review / Management Results review: No qualifying data available. Impression and Plan Condition: Stable. documented in this encounter Plan of Treatment Not on file documented as of this encounter Visit Diagnoses Not on filedocumented in this encounter
--- OUTSIDE RECORDS SUMMARY | 2025-05-06 07:05 | XMS_ITS | Encounter Summary ---
Author Organization [employer] ([place], [place], [place], [place]) Address [address] [place] [address] Care Team Providers Care Sheet Metal Worker Supervisor Name Role Phone Unavailable Primary Care Provider Unavailabl e Encounter Details Date Type Department Care Team (Late st Contact Info) Description 04/06/2021 Transcribed Document [facility] [address] [facility] [address] [place] [address] Srinivas Melendez MD [address] [facility] [address] [place] [address] Social History Tobacco Use Types [...] diskectomy and fusion. 2. Replating from C4-C7. GLASS BLOWING INSTRUCTOR: [place]. TYPE OF ANESTHESIA: GEA. [...] the distraction pins were. A 48 mm [place] plate was then affixed to the anterior [...] LOSS: 50 mL. DRAINS: None. COMPLICATIONS: None. /[id number] MD BEN Rodrigez/RIGOBERTO / MPT / MODL /[id number] CC: Leeann Johnson documented in this encounter Plan of Treatment Not on file documented as of this encounter Visit Diagnoses Not on filedocumented in this encounter
--- OUTSIDE RECORDS SUMMARY | 2025-05-06 07:05 | XMS_ITS | Encounter Summary ---
Author Organization [employer] ([place], [place], [place], [place]) Address [address] [place] [address] Care Team Providers Care Tinsmith Apprentice Name Role Phone Unavailable Primary Care Provider Unavailabl e Encounter Details Date Type Department Care Team (Late st Contact Info) Description 10/06/[address] [facility] [place] [facility] [place] [address] ProviderPat MD [facility] [place] [address] Social History Tobacco Use Types [...] - Pat ProviderMD - 10/06/2020 12:27 PM SUGAR PLANTATION MANAGER [facility] Main OR IntraOp Summary Primary Physician: MARION COBOS MD-SNU Finalized Date/Time: 10/07/20 13:51:00 Pt. Name: MELANIE ABDIO.B./Sex: 1965 Female Med Rec #: [id number] Physician: MARION COBOS MD-SNU Financial #: [id number] Pt. Type: O Room/Bed: Admit/Disch: 10/06/20 08:45:00 - 10/06/20 16:43:00 Institution: [facility] IntraOp Case Attendance Entry 1 Entry 2 Entry 3 Case Attendee MARION COBOS WASSON, SANDRA D, RN GULLETTE, NELSON, SCRUB MD-SNU TECH Role Performed Surgeon/Proceduralist, Clinical Audiologist, First Scrub, First First Time In 10/06/20 [...] A, VITO ELIAS MD-ANS Role Performed Physician architectural administrative assistant HEADLINER INSTALLER/Nurse Community Leader Anesthesiologist of Record Time In 10/06/20 11:57:00 [...] #1 JEROMY SAINI, RN Robyn Kumar, Diagnostic Call Or Contact Centre Manager Role Performed Student Clinical Audiologist, Second Questioned Documents Examiner Time In 10/06/20 11:57:00 10/06/20 11:57:00 10/06/20 [...] Wound Closed By: Last Modified By: CLARK AJUREGUI, SAYDA 10/06/20 12:44:32 [facility] IntraOp Case Attendance Audit 10/06/20 13:22:08 Paddock Judge: WASSONSY Modifier: WASSONSY 1 <+> Time Out [...] Procedure Cervical Discectomy Fusion Anterior 10/06/20 12:44:32 Paddock Judge: WASSONSY Modifier: WASSONSY 8 <+> Time Out 8 <*> Procedure Cervical Discectomy Fusion Anterior <+> 9 Case Attendee <+> 9 Role Performed <+> 9 Procedure <+> 10 Case Attendee <+> 10 Role Performed <+> 10 Procedure <+> 10 Other Attendee 10/06/20 12:15:00 Paddock Judge: WASSONSY Modifier: WASSONSY 1 <*> Procedure Cervical [...] Procedure Cervical Discectomy Fusion Anterior 10/06/20 12:14:37 Paddock Judge: WASSONSY Modifier: WASSONSY 1 <+> Time In [...] <+> 8 Role Performed <+> 8 Procedure [facility] IntraOp Case Times Entry 1 Patient In Room Time 10/06/20 11:57:00 Out Room Time 10/06/20 13:18:00 Anesthesia Start Time 10/06/20 11:57:00 Stop Time 10/06/20 13:19:00 Surgery / Procedure Times Start Time 10/06/20 12:27:00 Stop Time 10/06/20 13:12:00 Last Modified By: CLARK JAUREGUI RN 10/06/20 13:13:09 [facility] IntraOp Case Times Audit 10/06/20 13:22:05 Paddock Judge: WASSONSY Modifier: WASSONSY <+> 1 Out Room Time <+> 1 Stop Time 10/06/20 13:13:09 Paddock Judge: WASSONSY Modifier: WASSONSY <+> 1 Stop Time 10/06/20 12:28:55 Paddock Judge: WASSONSY Modifier: WASSONSY <+> 1 Start Time [facility] IntraOp Cautery Entry 1 Entry 2 ESU Identification Cautery Type Monopolar ESU BiPolar ESU Cautery Type Comments ID Number [id number] ID Type Hospital Number Hospital Number Cautery [...] CLARK WATSON RN 10/06/20 12:19:57 10/06/20 12:19:57 [facility] IntraOp Cautery Audit 10/06/20 14:49:40 Paddock Judge: WASSONSY Modifier: WASSONSY 1 <*> Grounding Pad Site Right thigh 10/06/20 12:46:50 Paddock Judge: WASSONSY Modifier: WASSONSY 1 <*> Cautery Type BiPolar ESU 1 <*> Cut Setting 40 1 <*> Bipolar Setting 40 1 <+> Grounding Pad Site 1 <*> ID Number [id number] 1 <*> Grounding Pad Applied By CLARK JAUREGUI RN 2 <*> Cautery Type Monopolar ESU 2 <*> Cut Setting 40 2 <*> ID Number [id number] [facility] IntraOp Communication Entry 1 Communication To Family/Significant other Comment START Communication By JEROMY SAINI RN Date and Time 10/06/20 12:28:00 Last Modified By: CLARK JAUREGUI RN 10/06/20 12:14:46 [facility] IntraOp Communication Audit 10/06/20 12:28:37 Paddock Judge: WASSONSY Modifier: WASSONSY <+> 1 Date and Time [facility] IntraOp Counts Verification Entry 1 Procedure Cervical Discectomy Fusion Anterior Count Info Count Type Sponge, Sharps Counts Verification Baseline/pre-procedure Sequence Count Results Correct, surgeon notified Counts Performed By Count Performed By NELSON NGUYEN SCRUB (Scrub) TECH Count Performed By CLARK JAUREGUI RN (RN) Last Modified By: CLARK JAUREGUI RN 10/06/20 12:46:58 [facility] IntraOp Counts Verification Audit 10/06/20 12:46:58 Paddock Judge: WASSONSY Modifier: WASSONSY 1 <*> Procedure Cervical Discectomy Fusion Anterior 1 <*> Count Performed By (RN) NELSON NGUYEN SCRUB TECH [facility] IntraOp Counts Final Entry 1 Procedure Cervical Discectomy Fusion Anterior Final Count Info Count Type Sponge, Sharps, Miscellaneous Counts Verification Skin Closure/end of Sequence procedure Count Results Correct, surgeon notified Counts Performed By Count Performed By GULLETTE, NELSON, SCRUB (Scrub) TECH Count Performed By CLARK JAUREGUI RN (RN) Last Modified By: CLARK JAUREGUI RN 10/06/20 13:07:53 [facility] IntraOp Departure from OR Entry 1 Integumentary Assessment Integumentary WDL Assessment WDL Transfer/Handoff Transfer to PACU Phase I Handoff Method Bedside/Face to face, Phone call Handoff Reported to Jon Ruth RN Post-op Transport Stretcher/Gurney Via Patient Transport HEBERT GAMBOA, Accompanied by BERNICE BRUCE CRNA Last Modified By: CLARK JAUREGUI RN 10/06/20 12:47:18 [facility] IntraOp Departure from OR Audit 10/06/20 12:47:18 Paddock Judge: HANG Modifier: WASSONSY <+> 1 Patient Transport Accompanied by <+> 1 Handoff Reported to [facility] IntraOp Dressing and Packing Entry 1 Type Dressing Location OP SITE Wound Dressing Item Steristrip, Other Applied By HEBERT GAMBOA Other Comments MASTISOL, STERISTRIPS, COVADERM Last Modified By: CLARK JAUREGUI RN 10/06/20 12:47:50 General Comments: COVERDERM [facility] IntraOp Dressing and Packing Audit 10/06/20 12:47:50 Paddock Judge: HANG Modifier: WASSONSY 1 <*> Location 1 <*> Wound Dressing Item 1 <*> Applied By HEBERT GAMBOA 1 <*> Other Comments [facility] IntraOp Fire Risk Assessment Entry 1 Fire Info Surgical Site or 1- Yes Incision Above the Xyphoid Open O2 Source 0- No (Mask or Cannula) Available Ignition 1- Yes (ESU, Laser, Light Source) Fire Risk 2 Assessment Score Fire Score Fire Risk Yes Assessment Complete Fire Risk CLARK JAUREGUI ammonium sulfate operator Verified By Fire Risk 10/06/20 11:56:00 Assessment Verified Date/Time Fire Risk Standard Fire Yes Safety Precautions Followed Last Modified By: CLARK JAUREGUI RN 10/06/20 12:15:32 [facility] IntraOp Fire Risk Assessment Audit 10/06/20 12:48:04 Paddock Judge: HANG Modifier: WASSONSY 1 <*> Fire Risk Assessment Verified By JEROMY SAINI RN 1 <*> Fire Risk Assessment Verified 10/06/20 12:15:00 Date/Time 10/06/20 12:28:03 Paddock Judge: WASSONSY Modifier: WASSONSY <+> 1 Fire Risk Assessment Complete [facility] IntraOp General Case Comic Artist 1 Case Information OR OR 11 [facility] Case Level 1 Room Verified Yes Wound Class I - Clean Specialty SN Neurosurgery Anesthesia Type General ASA Class 3 Diagnosis Preop Diagnosis CERVICAL SPONDYLOSIS WITH MYELOPATHY Postop Same As Preop No Postop Diagnosis PLEASE SEE MD NOTES Last Modified By: CLARK JAUREGUI RN 10/06/20 12:16:32 [facility] IntraOp General Case Data Audit 10/06/20 12:16:32 Paddock Judge: HANG Modifier: WASSONSY 1 <*> OR OR 09 [facility] 1 <+> ASA Class 1 <+> Anesthesia Type 1 <+> Postop Same As Preop 1 <+> Postop Diagnosis 1 <+> Room Verified [facility] IntraOp Implant Log Entry 1 Entry 2 Entry 3 Type Tissue Implant Implant (Synthetic) Implant (Synthetic) (Biologic) Implant Log Implant Type Hardware Hardware Tissue Implant Type Bone Implant BONE VIVIGEN FORMABLE CAGE EIT CIF H 5MM 8D CAGE EIT CIF H 5MM 8D Identification [id number] Description Implant Quantity 1 1 1 Implant Site OP SITE OP SITE OP SITE Implant Identification Model Number Implant [id number] Identification Serial Number Implant [id number] Identification Lot Number Implant Lifenet:Lifenet J&J:Depuy:Depuy Spine J&J:Depuy:Depuy Spine Identification Transplant Srv Director Of Career Resources Name: Implant [id number] Identification Catalog Number Implant Size Implant Has an Yes Yes Yes Expiration Date Implant Expiration 09/14/21 11/14/23 11/14/23 Date Wasted Radioactive Material Time Implanted Tissue Implant Continue for Tissue Implant Documentation Tissue Identification Number Graft Prep Per Director Of Career Resources Instructions: Tissue Preparation Method: Reconstitution Solution: Reconstitution Solution Lot Number Reconstitution Solution Expiration Date: Thawing Solution Thawing Solution Lot Number Thawing Solution Expiration Date Preparation Materials, Other Preparation Materials, Other Lot Number Preparation Materials, Other Expiration Date Tissue Prepared/Processed By Director Of Career Resources Paperwork Completed Implant Type Comment Last Modified By: CLARK JAUREGUI RN WASSON, SANDRA D RN CLARK JAUREGUI RN 10/06/20 12:52:08 10/06/20 12:57:34 10/06/20 12:58:46 Entry 4 Entry 5 Type Implant (Synthetic) Implant (Synthetic) Implant Log Implant Type Hardware Hardware Tissue Implant Type Implant PLT ANT SKYLN HYBRD SCR SKYLN VARI SD Identification [id number] Description Implant Quantity 1 6 Implant Site OP SITE OP SITE Implant Identification Model Number Implant Identification Serial Number Implant Identification Lot Number Implant J&J:Depuy:Depuy Spine J&J:Depuy:Depuy Spine Identification Director Of Career Resources Name: Implant [id number] Identification Catalog Number Implant Size Implant Has an Expiration Date Implant Expiration Date Wasted Radioactive Material Time Implanted Tissue Implant Continue for Tissue Implant Documentation Tissue Identification Number Graft Prep Per Director Of Career Resources Instructions: Tissue Preparation Method: Reconstitution Solution: Reconstitution Solution Lot Number Reconstitution Solution Expiration Date: Thawing Solution Thawing Solution Lot Number Thawing Solution Expiration Date Preparation Materials, Other Preparation Materials, Other Lot Number Preparation Materials, Other Expiration Date Tissue Prepared/Processed By Director Of Career Resources Paperwork Completed Implant Type Comment Last Modified By: CLARK JAUREGUI, CLARK WATSON RN 10/06/20 13:13:00 10/06/20 13:13:00 [facility] IntraOp Implant Log Audit 10/06/20 13:13:00 Paddock Judge: WASSONSY Modifier: WASSONSY <+> 4 Implant Identification Description <+> 4 Implant Identification Director Of Career Resources Name: <+> 4 Implant Site <+> 4 Implant Quantity <+> 4 Implant Identification Catalog Number <+> 4 Implant Type <+> 4 Type <+> 5 Implant Identification Description <+> 5 Implant Identification Director Of Career Resources Name: <+> 5 Implant Site <+> 5 Implant Quantity <+> 5 Implant Identification Catalog Number <+> 5 Implant Type <+> 5 Type 10/06/20 12:58:46 Paddock Judge: WASSONSY Modifier: WASSONSY <+> 3 Implant Identification Description <+> 3 Implant Identification Lot Number <+> 3 Implant Identification Director Of Career Resources Name: <+> 3 Implant Expiration Date <+> 3 Implant Site <+> 3 Implant Quantity <+> 3 Implant Identification Catalog Number <+> 3 Implant Type <+> 3 Implant Has an Expiration Date <+> 3 Type 10/06/20 12:57:34 Paddock Judge: WASSONSY Modifier: WASSONSY <+> 2 Implant Identification Description <+> 2 Implant Identification Lot Number <+> 2 Implant Identification Director Of Career Resources Name: <+> 2 Implant Expiration Date <+> 2 Implant Site <+> 2 Implant Quantity <+> 2 Implant Identification Catalog Number <+> 2 Implant Type <+> 2 Implant Has an Expiration Date <+> 2 Type [facility] IntraOp Intraoperative Assessment Entry 1 Handoff Method [...] Modified By: CLARK JAUREGUI RN 10/06/20 12:48:18 [facility] IntraOp Intraoperative Assessment Audit 10/06/20 12:48:18 Paddock Judge: HANG Modifier: WASSONSY 1 <*> Skin Assessment Verified Yes 1 <*> Handoff Method Bedside/Face to face, Phone call [facility] Intra Intraoperative Equipment Entry 1 Type Equipment Equipment Equipment Kg Suction System ID Number [id number] Setting 180 MM HG Intraop Monitoring Electrocardiogram Five lead placement (ECG) Electrode Placement Blood Pressure Non-Invasive BP Device Source Blood Pressure Arm, left lower Location Pulse Oximeter Hand, right Probe Site Antiembolic Devices Antiembolic Devices Sequential compression device, knee high Antiembolic Device Bilateral Location Antiembolic Device [id number] ID Number Scopes Photo/Video Documentation Photo No Video No Last Modified By: CLARK JAUREGUI RN 10/06/20 12:49:15 [facility] IntraOp Intraoperative Equipment Audit 10/06/20 12:49:15 Paddock Judge: HANG Modifier: WASSONSY <+> 1 Photo <+> 1 Video <+> 1 ID Number <+> 1 Setting <+> 1 Electrocardiogram (ECG) Electrode Placement <+> 1 Blood Pressure Location <+> 1 Pulse Oximeter Probe Site <+> 1 Blood Pressure Source <+> 1 Antiembolic Device ID Number [facility] IntraOp Medication Admin Entry 1 Entry 2 Entry 3 Medication/Irrigant Bacitracin 50,00units lidocaine 1% w/ thrombin 5000units powder vial epinephrine 1:100,000 topical powder - 30ml vial - [id number] Combo Med List Time Administered Route of IRRIGATION LOCAL TOPICAL Administration Dose Dose 05754 10 5000 Unit of Measure units ml units Volume Administered By MARION COBOS, MARION COBOS MD-SNU MD-SNU Procedure Irrigation Irrigant Volume In Irrigant Volume Out Last Modified By: CLARK JAUREGUI, CLARK WATSON RN WASSON, SANDRA D, RN 10/06/20 12:31:00 10/06/20 12:31:00 10/06/20 12:31:00 Entry 4 Medication/Irrigant SPNG SURGFOAM [id number] Combo Med List Time Administered Route of TOPICAL Administration Dose Dose Unit of Measure Volume Administered By MARION COBOS MD-SNU Procedure Irrigation Irrigant Volume In Irrigant Volume Out Last Modified By: CLARK JAUREGUI RN 10/06/20 12:31:00 [facility] IntraOp Patient Positioning Entry 1 Procedure Cervical [...] Modified By: CLARK JAUREGUI RN 10/06/20 12:26:54 [facility] IntraOp Patient Positioning Audit 10/06/20 12:50:11 Paddock Judge: WASSONSY Modifier: WASSONSY 1 <*> Procedure Cervical Discectomy Fusion Anterior 1 <*> Positioning Devices Arm Board, Pad, Arm, Pillows [facility] IntraOp Sign In Entry 1 Patient, Site, [...] Modified By: CLARK JAUREGUI RN 10/06/20 12:50:24 [facility] IntraOp Sign In Audit 10/06/20 12:50:24 Paddock Judge: WASTONYSY Modifier: WASSONSY 1 <*> Allergies No 1 <*> Blood Identifiers Verified Per Not applicable Policy [facility] IntraOp Sign Out Entry 1 RN Confirmation [...] Modified By: CLARK JAUREGUI RN 10/06/20 12:29:20 [facility] IntraOp Sign Out Audit 10/06/20 13:22:22 Paddock Judge: WASTONYSY Modifier: WASSONSY <+> 1 RN Sign Out Signature Date/Time 10/06/20 12:51:21 Paddock Judge: WASSONSY Modifier: WASSONSY 1 <*> Specimen Labeled Correctly Yes 1 <+> RN Sign Out Signature [facility] IntraOp Skin Prep Entry 1 Procedure Cervical Discectomy Fusion Anterior Prescribed Yes Pre-Surgical Prep Completed Prep Area NECK AFTER ALCOHOL AND HIBICLENS PREP PER DR COBOS Intraop Prep Integumentary WDL Assessment WDL Prep Agents Alcohol, Chlorhexadine gluconate, DuraPrep Prep by JEROMY SAINI, RN Hair Removal Methods No hair removal performed Last Modified By: CLARK JAUREGUI RN 10/06/20 12:17:22 [facility] IntraOp Skin Prep Audit 10/06/20 12:51:04 Paddock Judge: WASTONYSY Modifier: WASSONSY 1 <*> Prep Area NECK 1 <*> Procedure Cervical Discectomy Fusion Anterior 1 <*> Prep by MARION COBOS MD-[facility] IntraOp Surgical Procedures Entry 1 Procedure Cervical Discectomy Fusion Anterior Additional (C4-6 ACDF) Procedure Description Primary Procedure Yes Primary Surgeon MARION COBOS MD-SNU Start 10/06/20 12:27:00 Stop 10/06/20 13:12:00 Anesthesia Type General Specialty SN Neurosurgery Wound Class I - Clean Last Modified By: CLARK JAUREGUI RN 10/06/20 12:19:31 [facility] IntraOp Surgical Procedures Audit 10/06/20 13:13:12 Paddock Judge: WASSONSY Modifier: WASSONSY <+> 1 Stop 10/06/20 12:29:03 Paddock Judge: WASSONSY Modifier: WASSONSY <+> 1 Start [facility] IntraOp Temp Regulation Devices Entry 1 Temp Regulation Temperature Forced Air Warming Regulation Device device Temperature 25087 Regulation Device Serial/Unit Number Temperature Lower body Regulation Site Temperature Device 43 C Setting Temperature BERNICE BRUCE CRNA Regulation Device Applied by Last Modified By: CLARK JAUREGUI RN 10/06/20 12:43:51 [facility] IntraOP Time Out Entry 1 Procedure to [...] Modified By: CLARK JAUREGUI RN 10/06/20 12:28:49 [facility] IntraOP Time Out Audit 10/06/20 12:28:49 Paddock Judge: WASTONYSY Modifier: WASSONSY 1 <+> Time Out Pause Time 1 <*> Procedure to be Performed Cervical Discectomy Fusion Anterior 10/06/20 12:27:48 Paddock Judge: HANG Modifier: HANG 1 <*> Beta Michelle [...] Performed in location of procedure after prepped/draped [facility] IntraOp X-Ray and Images Entry 1 X-Ray/Imaging Type Fluoroscopy Fluoroscopy Type C-Arm Site OP SITE [place] Buyer Name Robyn Kumar, Diagnostic Call Or Contact Centre Manager Last Modified By: CLARK JAUREGUI RN 10/06/20 12:44:50 Case Comments <None> Finalized By: BO ALEX Document Signatures Signed By: CLARK JAUREGUI RN 10/06/20 14:49 CLARK JAUREGUI RN 10/06/20 13:22 BO ALEX 10/07/20 13:51 Unfinalized History Date/Time Username Reason for Unfinalizing Freetext Reason for Unfinalizing 10/06/20 14:49 HANG Correct Documentation 10/07/20 13:48 TOMAS Correct Billing Electronically signed by [facility] Conversion Science Instructor Cerner at 01/07/2023 7:36 PM CDT documented in this encounter Plan of Treatment Not on file documented as of this encounter Visit Diagnoses Not on filedocumented in this encounter
--- OUTSIDE RECORDS SUMMARY | 2025-05-06 07:05 | XMS_ITS | Encounter Summary ---
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 ENGINEER PAT Adult Entered On: 10/05/2020 16:28 EST Performed On: 10/05/2020 16:24 EST by Radha Hawley RN Height and Weight, Clinical Dosing Height Source : Measured Height Entry Format : [place] Height, Feet : 5 ft(Converted to: 152 cm, 60 Inch) Height, Inches : 3 Inch(Converted to: 0 ft 3 Inch, 7.62 cm) Clinical Height : 160.02 cm Weight Source : Standing scale Weight Entry Format : [place] Clinical Dosing Weight : 110.91 kg Weight, Pounds : 244 lb Body Surface Area (BSA) : 2.11 m2 Body Mass Index : 43.3 kg/m2 (>HHI) [place] Body Weight : 52 kg Radha Hawley [...] Radha Hawley RN - 10/05/2020 16:24 EST [place] Suicide Severity Rating Scale (C-SSRS) CSSRS Past [...] Support Person/Pt Rep Name : Raymond Lundberg [phone] Want Family/Rep/Phys Notified of Admit : No Emergency Contact #1 : x Emergency Contact #1 Phone Number : x Emergency Contact #1 Relationship : x Emergency Contact #2 : x Emergency Contact #2 Phone Number : x Emergency Contact #2 Relationship : x Chief Complaint : x Primary Language : Kazakh Communication Barrier : None District Administrator Needed : No Radha Hawley RN - [...]
--- OUTSIDE RECORDS SUMMARY | 2025-05-06 07:05 | XMS_ITS | Encounter Summary ---
Author Organization [employer] ([place], [place], [place], [place]) Address [address] [place] [address] Care Team Providers Care Torch Cutter Name Role Phone Unavailable Primary Care Provider Unavailabl e Encounter Details Date Type Department Care Team (Late st Contact Info) Description 04/06/2021 Transcribed Document [facility] [place] [facility] [place] [address] ProviderPat MD [address] [place] [address] Social History Tobacco Use Types [...] Pat ProviderMD - 04/06/2021 11:42 AM CDT [facility] Main OR PostOp Summary Primary Physician: MARION COBOS MD-SNU Finalized Date/Time: 04/07/21 13:01:30 Pt. Name: BUSHRA LUNDBERG D.O.B./Sex: 1965 Female Med Rec #: [id number] Physician: MARION COBOS MD-SNU Financial #: [id number] Pt. Type: O Room/Bed: ASA/3 Admit/Disch: 04/06/21 06:47:00 - 04/06/21 15:30:00 Institution: [facility] Main OR PostOp Case Times [...] Billing Electronically signed by Preet Christopher Conversion Industrial Garage Servicer Cerner at 01/07/2023 7:36 PM CDT documented in this encounter Plan of Treatment Not on file documented as of this encounter Visit Diagnoses Not on filedocumented in this encounter
--- OUTSIDE RECORDS SUMMARY | 2025-05-06 07:05 | XMS_ITS | Encounter Summary ---
Author Organization [employer] ([place], [place], [place], [place]) Address [address] [place] [address] Care Team Providers Care Restaurant Maintenance Technician Name Role Phone Unavailable Primary Care Provider Unavailabl e Encounter Details Date Type Department Care Team (Late st Contact Info) Description 10/06/2020 Transcribed Document [facility] Family Medicine [address] [place] [address] ProviderPat MD [address] [place] [address] Social History Tobacco Use Types [...] - Pat ProviderMD - 10/06/2020 4:32 PM CROSSBAND LAYER [facility] [place] [address] BUSHRA LUNDBERG :1965 Visit Time:10/06/2020 What [...] A DAY WHILE ON PAIN MEDICATION [facility] ACDF INSTRUCTIONS Discharge Follow Up Instructions: f/u 4-5 weeks post op with AP/lateral x-rays of the cervical spine. Follow-Up Appointments Follow Up with MARION SIMON When Within 1 month Comments Follow-up as instructed [facility] AT [facility] THEN FOLLOW UP WITH dr smion afterwards Where: [address] (SUNDAY ONLY) [place] [address]- [employer] (1) Medications What How Much When Instructions [...] and water are not available, use hand lawn sprinkler installer. ? Change your dressing as told by [...] or a bad smell. Medicines ??? Take xtdf-cgz-ggypuks and prescription medicines only as told by [...] 12/24/2016 Document Revised: 12/02/2018 Document Reviewed: 12/24/2016 [employer] Patient Education ?? 2020 [employer] Emergency Awareness and Preventative Care STROKE [...] Assistance with quitting is available by contacting 4-590-BHYL-NOW. This is a free resource providing counseling, [...] was given the opportunity to ask questions. Patient/Transportation Refrigeration Technician Name: Patient/Transportation Refrigeration Technician Signature: Relationship to Patient: Clinician/Hospital Transportation Refrigeration Technician Signature: Date: Electronically signed by Ashwin, [facility] Conversion Conveyor Technician Armen at 01/07/2023 7:29 PM CDT documented in this encounter Plan of Treatment Not on file documented as of this encounter Visit Diagnoses Not on filedocumented in this encounter
--- OUTSIDE RECORDS SUMMARY | 2025-05-06 07:05 | XMS_ITS | Clinical Summary ---
Author Organization [employer] ([place], [place], [place], [place]) Address [address] [place] [address] Care Team Providers Care Winder Operator Name Role Phone Unavailable Primary Care [...]
--- OUTSIDE RECORDS SUMMARY | 2025-05-06 07:05 | XMS_ITS | Encounter Summary ---
Author Organization [employer] ([place], [place], [place], [place]) Address [address] [place] [address] Care Team Providers Care Quality Audit Representative Name Role Phone Unavailable Primary Care Provider Unavailabl e Encounter Details Date Type Department Care Team (Late st Contact Info) Description 10/05/2020 Transcribed Document [facility] Family Medicine [address] [place] [address] ProviderPat MD [address] [place] [address] Social History Tobacco Use Types [...] - Historical ProviderMD - 10/05/2020 1:54 PM GRAPHIC ARTS INSTRUCTOR UM Authorization Entered On: 10/05/2020 13:54 EST Performed On: 10/05/2020 13:54 EST by REKHA BURNHAM Dip Dyer Primary Insurance Authorization Authorization and Policy Numbers : Insurance 1 Health Plan: [employer] Policy Number: [id number] Authorization Number: Authorization Comments-Primary : pt is bruno for OUT PT Cervical Discectomy Fusion Anterior on Sun10-06-20 Historical Authorization Comments-Primary : No Authorization Comments Found REKHA BURNHAM, Dip Dyer - 10/05/2020 13:54 EST Electronically signed by Ashwin [facility] Conversion Columnist/Commentator Cerner at 01/07/2023 7:37 PM CDT documented in this encounter Plan of Treatment Not on file documented as of this encounter Visit Diagnoses Not on filedocumented in this encounter
--- OUTSIDE RECORDS SUMMARY | 2025-05-06 07:05 | XMS_ITS | Clinical Summary ---
Author Organization Healthcare Address [address] [id number] Care Team Providers Care Superintendent Warehouse Name Role Phone Raymond Duarte MD Primary Care Provider [phone] Family History Medical History Relation Name Comments [...] of Treatment Not on file Care Teams Superintendent Warehouse Relationship Specialty Start Date End Date Raymond Duarte MD [address] [place] [address] PCP - General 01/28/21
--- OUTSIDE RECORDS SUMMARY | 2025-05-06 07:05 | XMS_ITS | Encounter Summary ---
Author Organization [employer] ([place], [place], [place], [place]) Address [address] [place] [address] Care Team Providers Care Graining Press Operator Name Role Phone Unavailable Primary Care Provider Unavailabl e Encounter Details Date Type Department Care Team (Late st Contact Info) Description 04/06/2021 Transcribed Document [facility] Family Medicine [facility] [place] [address] ProviderPat MD [address] [place] [address] Social History Tobacco Use Types [...] and water are not available, use hand business management manager. ? Change your dressing as told [...] Managing pain, stiffness, and swelling ??? Take ezsl-eyi-likvpee and prescription medicines only as told by [...] keep your urine pale yellow. ? Take lrop-vyd-vjsxotx or prescription medicines. ? Eat foods that [...] provider. Document Revised: 05/29/2019 Document Reviewed: 05/29/2019 [employer] Patient Education ? 2020 [employer] Pharmacology General Anesthesia, Adult, Care After [...] activities are safe for you. ??? Take dqcy-ngp-frpvawz and prescription medicines only as told by [...] provider. Document Revised: 09/06/2018 Document Reviewed: 04/19/2018 [employer] Patient Education ? 2020 [employer]. documented in this encounter Plan of Treatment Not on file documented as of this encounter Visit Diagnoses Not on filedocumented in this encounter
--- OUTSIDE RECORDS SUMMARY | 2025-05-06 07:05 | XMS_ITS | Encounter Summary ---
Author Organization [employer] ([place], [place], [place], [place]) Address [address] [place] [address] Care Team Providers Care Php Magento Developer Name Role Phone Unavailable Primary Care Provider Unavailabl e Encounter Details Date Type Department Care Team (Late st Contact Info) Description 04/06/2021 Transcribed Document [facility] [place] [facility] [place] [address] ProviderPat MD [address] [place] [address] Social History Tobacco Use Types [...] Ministry Provided to : Patient, Family/Significant other Amish Preference : Sabianist ([employer]) ARMIN LAL - 04/06/2021 11:16 EDT Interventions Emotional Support : Empathic/Engaged listening, Family/Significant other supported, Feelings expressed Spiritual and Amish : Prayer shared, Spiritual/Amish support provided Change, Adjustment and Loss : Relationships/Community/Support system discussed ARMIN LAL - 04/06/2021 11:16 EDT Outcomes Affect/Behavior Changed : Comforted Appreciation Expressed : Yes Thoughts, Feelings and Emotions Exp. : Yes Supportive Relationships Described : Family, Spiritism family HEAD, ARMIN - 04/06/2021 11:16 EDT documented in this encounter Plan of Treatment Not on file documented as of this encounter Visit Diagnoses Not on filedocumented in this encounter
--- OUTSIDE RECORDS SUMMARY | 2025-05-06 07:05 | XMS_ITS | Encounter Summary ---
Author Organization [employer] ([place], [place], [place], [place]) Address [address] [place] [address] Care Team Providers Care Biomedical Engineer Name Role Phone Unavailable Primary Care Provider Unavailabl e Encounter Details Date Type Department Care Team (Late st Contact Info) Description 04/06/2021 Transcribed Document [facility] Family Medicine [facility] [address] ProviderPat MD [address] [place] [address] Social History Tobacco Use Types [...] LUNDBERG D.O.B./Sex: 1965 Female Med Rec #: [id number] Physician: MARION COBOS MD-SNU Financial #: [id number] Pt. Type: O Room/Bed: ASA/3 Admit/Disch: 04/06/21 06:47:00 - Institution: [facility] Main [place] PACU I Case Times Entry 1 In PACU I 04/06/21 13:05:00 Ready for PACU 04/06/21 13:55:00 Discharge Discharge from PACU 04/06/21 13:55:00 I Last Modified By: COSMO PIERRE RN 04/06/21 14:03:24 [facility] Main [place] PACU I Case Times Audit 04/06/21 14:03:24 Financial Retirement Plan Specialist: [id number] Modifier: [id number] <+> 1 Ready for PACU Discharge <+> 1 Discharge from PACU I Finalized By: COSMO PIERRE RN Document Signatures Signed By: COSMO PIERRE RN 04/06/21 14:03 Electronically signed by Ashwin [facility] Conversion Tray Drier Operator Cerner at 01/07/2023 7:30 PM CDT documented in this encounter Plan of Treatment Not on file documented as of this encounter Visit Diagnoses Not on filedocumented in this encounter
--- OUTSIDE RECORDS SUMMARY | 2025-05-06 07:05 | XMS_ITS | Encounter Summary ---
Author Organization [employer] ([place], [place], [place], [place]) Address [address] [place] [address] Care Team Providers Care Engineering Aid Name Role Phone Unavailable Primary Care Provider Unavailabl e Encounter Details Date Type Department Care Team (Late st Contact Info) Description 04/06/2021 Transcribed Document [facility] [place] Medicine [address] [place] [address] ProviderPat MD [address] [place] [address] Social History Tobacco Use Types [...] Pat ProviderMD - 04/06/2021 2:13 PM CDT [facility] [place] [address] BUSHRA ABDI :1965 Visit Time:04/06/2021 [...] Comments Follow-up appointment at 9:15am Where: [address] (SUNDAY ONLY) [place] [address]- Medications What How Much When Instructions Next [...] activities are safe for you. ??? Take utie-upv-fqhrltn and prescription medicines only as told by [...] provider. Document Revised: 09/06/2018 Document Reviewed: 04/19/2018 [employer] Patient Education ?? 2020 [employer]. Anterior Cervical Diskectomy and Fusion, Care [...] and water are not available, use hand cloth shrinking machine operator helper. ? Change your dressing as [...] Managing pain, stiffness, and swelling ??? Take gink-cuj-cyzsicf and prescription medicines only as told by [...] keep your urine pale yellow. ? Take pnbl-lgl-tndwhqg or prescription medicines. ? Eat foods that [...] provider. Document Revised: 05/29/2019 Document Reviewed: 05/29/2019 [employer] Patient Education ?? 2020 [employer]. Emergency Awareness and Preventative Care STROKE is [...] Assistance with quitting is available by contacting 2-427-DMLI-NOW. This is a free resource providing counseling, [...] ) Urine Bilirubin Dipstick: Negative Urine Specific Seminary: 1.012 -- Normal range between ( 1.005 [...] was given the opportunity to ask questions. Patient/Supervisor Powdered Sugar Name: Patient/Supervisor Powdered Sugar Signature: Relationship to Patient: Clinician/Hospital Supervisor Powdered Sugar Signature: Date: Electronically signed by Interface, [facility] Conversion Safety Compliance Specialist Armen at 01/07/2023 7:35 PM CDT documented in this encounter Plan of Treatment Not on file documented as of this encounter Visit Diagnoses Not on filedocumented in this encounter
--- OUTSIDE RECORDS SUMMARY | 2025-05-06 07:05 | XMS_ITS | Encounter Summary ---
Author Organization [employer] ([place], [place], [place], [place]) Address [address] [place] [address] Care Team Providers Care Batch Freezer Name Role Phone Unavailable Primary Care Provider Unavailabl e Encounter Details Date Type Department Care Team (Late st Contact Info) Description 10/06/2020 Transcribed Document [facility] [place] Family Medicine [facility] [place] [address] ProviderPat MD [address] [place] [address] Social History Tobacco Use Types [...] - Pat ProviderMD - 10/06/2020 4:28 PM CYBER SECURITY INSTRUCTOR Patient Education Materials Follows: Outpatient Surgery, Adult, [...] and water are not available, use hand precision lens technician. ? Change your dressing as told by [...] or a bad smell. Medicines ??? Take uuxp-omg-tamcsgo and prescription medicines only as told by [...] 12/24/2016 Document Revised: 12/02/2018 Document Reviewed: 12/24/2016 [employer] Patient Education ? 2020 [employer]. Electronically signed by Monroe Christopher Conversion Director Critical Care Stacyner at 01/07/2023 7:33 PM CDT documented in this encounter Plan of Treatment Not on file documented as of this encounter Visit Diagnoses Not on filedocumented in this encounter
--- OUTSIDE RECORDS SUMMARY | 2025-05-06 07:05 | XMS_ITS | Referral Summary ---
Author Organization [employer] ([place], [place], [place], [place]) Address [address] [place] [address] Care Team Providers Care Coroner/Medical Examiner Name Role Phone Unavailable Primary Care Provider [...]
--- NOTE | 2025-05-06 07:30 | CT_ITS ---
FINAL REPORT TECHNIQUE: Axial images were obtained through the chest without contrast. Multiplanar reconstructions in the sagittal and coronal planes were performed. This study was performed with techniques to keep radiation doses as low as reasonably achievable (ALARA). Individualized dose reduction techniques using automated exposure control or adjustment of mA and/or kV according to the patient's size were employed. CLINICAL HISTORY: 3 month f/u COMPARISON: 02/02/2025 FINDINGS: CT CHEST WITHOUT CONTRAST: There is streak artifact noted from a prior anterior cervical fusion. There are a few small scattered mediastinal nodes noted without significant adenopathy. No pleural or pericardial effusions are present. Postoperative changes are noted in the stomach. There is a pleural-based nodule in the posterior right upper lobe, measuring 6 mm in size and best seen on image #53 of series 3, stable. There is a dominant lesion in the right middle lobe, which measures 15 x 10 mm in size, best seen on image #117 of series 3, also stable. Several other smaller nodules remain present, unchanged since the prior exam. No new nodules or infiltrates are identified. IMPRESSION: Stable pulmonary nodules as described remained stable since the prior chest CT of 02/02/2025. Recommend 1 year follow-up CT of the chest. Reviewed, Interpreted and Dictated by Rudy Wilson MD Transcribed by Isa Soria Authenticated and [facility]
== END 2025-05-06 23:59 | disposition home or self-care (01) ==
PROVIDERS: PCP Internal Medicine; Visit Provider Internal Medicine Pulmonary Disease
DX: R91.8 Other nonspecific abnormal finding of lung field (principal)
CPT/HCPCS: 71250

== ENCOUNTER 2025-06-01 06:17 | Day surgery (SDC) | payer MEDICAID, SELFPAY ==
--- NOTE | 2025-05-20 07:15 | EXP.HP ---
History of Present Illness *Admission Date: 05/21/25 *History of present illness: Mrs. Lundberg is a 60-year-old female who is here for screening colonoscopy. The patient does have a personal history of colon polyps (unspecified). The examination is deemed medically necessary for screening colonoscopy. The patient has been seen, interviewed and examined prior to the procedure by both myself and the anesthesia provider. [facility] Disclaimer: The information contained in this section may have been updated after the patient was seen, as this information can be updated by other users. Medical History Hypokalemia Thyroid nodule History of ulcer disease History of hyperlipidemia History of emphysema History of anxiety History of depression History of coronary artery disease Abnormal findings on diagnostic imaging of heart and coronary circulation Abnormal nuclear cardiac imaging test Obesity Pulmonary emphysema Dyspnea on exertion Lung nodule Thyroiditis Diastolic dysfunction Thyroid disease History of gastroesophageal reflux (GERD) Atypical chest pain Bigeminy PAC (premature atrial contraction) Generalized anxiety disorder Recurrent major depression resistant to treatment Dysphagia An EGD was done. Noted that her gastric sleeve was somewhat expanded. She also had dilatation done on her esophagus. Recommended repeat in approximately 3 years. Thyroiditis She also has hypothyroidism likely related to this. With her elevated TSH, I am going to increase her levothyroxine dose and recheck her levels. Metabolic syndrome Pre-diabetes Bilateral foot pain Abnormal weight Urinary incontinence Vitamin D deficiency Hypothyroidism Low back pain Knee pain Hyperlipidemia Hypertension Surgical History History of hysterectomy Status post gastric banding surgery 07/23/18 Family History Other Anxiety Coronary artery disease Depression Diabetes Hypertension No significant family history Obesity Social History Smoking Status: Former smoker smoking status stop date: November 2024 second hand exposure: No alcohol intake: never substance use type: denies use current occupational status: other Travel in the last 8 weeks?: None household members: spouse housing: house number of children: 2 current occupational exposures/hazards: No caffeine: Yes Other Medical History Have you received the Flu Vaccine for this season: No Have you received the Pneumonia Vaccine: Yes Review of Systems Review of Systems Review of systems (narrative): Negative *Cardiovascular Comments: Negative *Gastrointestinal Comments: Negative *Genitourinary Comments: Negative *Musculoskeletal Comments: Negative *Neurologic Comments: Negative Meds Home Medications and Allergies Home Medications ?Medication ?Instructions ?Recorded ?Confirmed ?Type ergocalciferol (vitamin D2) 1,250 See Rx Instructions .Route 12/28/23 05/05/25 Rx mcg (50,000 unit) capsule .COMPLEX #14 caps cyclobenzaprine 10 mg tablet See Rx Instructions .Route 08/25/24 05/05/25 Rx .COMPLEX #30 tabs lisinopril 10 mg tablet 10 mg PO DAILY 90 days #90 tabs 10/28/24 05/05/25 Rx bupropion HCl 150 mg 24 hr tablet, 150 mg PO DAILY 11/07/24 05/05/25 History extended release pantoprazole 40 mg tablet,delayed 40 mg PO DAILY 11/07/24 05/05/25 History release aspirin 81 mg tablet,delayed 81 mg PO DAILY #30 tabs 01/08/25 05/05/25 Rx release (Adult Low Dose Aspirin) metoprolol succinate 25 mg 25 mg PO DAILY #90 tabs 01/08/25 05/05/25 Rx tablet,extended release 24 hr (Toprol XL) buspirone 10 mg tablet 10 mg PO TID PRN N/A 01/23/25 05/05/25 History gabapentin enacarbil 600 mg 600 mg PO HS #30 tabs 01/26/25 05/05/25 Rx tablet,extended release (Horizant ER) budesonide-formoterol HFA 160 2 puff inhalation BID 90 days 02/10/25 05/05/25 Rx mcg-4.5 mcg/actuation aerosol #10.2 grams inhaler levothyroxine 200 mcg capsule 200 mcg PO DAILY #30 caps 02/24/25 05/05/25 Rx levothyroxine 25 mcg tablet 25 mcg PO DAILY #60 tabs 02/24/25 05/05/25 Rx (Synthroid) amitriptyline 25 mg tablet 25 mg PO DIRECTED N/A 03/19/25 05/05/25 History cholecalciferol (vitamin D3) 1,250 1,250 mcg PO DIRECTED SUPPLIMENT 03/19/25 05/05/25 History mcg (50,000 unit) capsule atorvastatin 10 mg tablet See Rx Instructions .Route 04/08/25 05/05/25 Rx .COMPLEX #30 tabs cariprazine 3 mg capsule (Vraylar) See Rx Instructions .Route 04/08/25 05/05/25 Rx .COMPLEX #30 caps oxybutynin chloride 10 mg See Rx Instructions .Route 04/08/25 05/05/25 Rx tablet,extended release 24 hr .COMPLEX #30 tabs furosemide 40 mg tablet 20 mg PO DAILY 04/16/25 05/05/25 History spironolactone 25 mg tablet 25 mg PO DAILY 04/16/25 05/05/25 History duloxetine 30 mg capsule,delayed 30 mg PO DAILY #30 caps 04/29/25 05/05/25 Rx release duloxetine 60 mg capsule,delayed 60 mg PO DAILY #90 caps 04/29/25 05/05/25 Rx release tirzepatide (weight loss) 2.5 2.5 mg (0.5 mL) SQ WEEKLY #2 mL 05/08/25 Rx mg/0.5 mL subcutaneous pen injector (Zepbound) albuterol sulfate 90 mcg/actuation inhalation 05/12/25 05/12/25 History aerosol inhaler New Prescriptions to Start Prescriptions: Allergies Allergy/AdvReac Type Severity Reaction Status Date / Time adhesive tape Allergy Rash Verified 05/12/25 11:01 Exam *Routine HEENT Exam Head: Present normocephalic Eye: Present EOMI and PERRL ENT: Present mucous membranes moist *Routine Neck Exam Neck: Present supple *Routine Respiratory Exam Respiratory: Present CTA bilaterally *Routine Cardiovascular Exam Cardiovascular: Present RRR *Routine Abdominal Exam Abdominal: Present soft and normoactive bowel sounds; Absent tenderness *Routine Rectal Exam Rectal:: deferred *Routine Genitalia Exam Genitalia:: deferred *Routine Extremities Exam Extremities: Absent cyanosis, clubbing or edema *Routine Skin Exam Skin: Present warm; Absent rash *Routine Neurological Exam Neurological: Present alert and oriented X3 Assessment and Plan *Assessment and plan (1) Personal history of colon polyps, unspecified: Status: Acute Category: Medical Code(s): Z86.0100 - Personal history of colon polyps, unspecified (2) Screening for colorectal cancer: Status: Acute Category: Medical Code(s): Z12.11 - Encounter for screening for malignant neoplasm of colon; Z12.12 - Encounter for screening for malignant neoplasm of rectum Plan A/P: 1. Personal history of colon polyps (unspecified) is the preprocedural diagnosis. The patient will be anesthetized/sedated using MAC sedation. The patient has been seen and examined. Cardiac and lung assessment prior to the examination is stable. Proceed with planned screening colonoscopy.
--- NOTE | 2025-05-27 07:55 | EXP.HP ---
History of Present Illness *Admission Date: 06/01/25 *History of present illness: Mrs. Lundberg is a 60-year-old female who is here for screening colonoscopy. The patient had been arranged for colonoscopy on 2 prior occasions this year but canceled. The patient did have a colonoscopy many years ago (between 2009 and 2012) and states that the single polyp was removed. She had been sent to Pete De Leon M.D. for colonoscopy in October 2019 but this does not appear to have been done. The examination is deemed medically necessary for screening colonoscopy. The patient has been seen, interviewed and examined prior to the procedure by both myself and the anesthesia provider. [facility] Disclaimer: The information contained in this section may have been updated after the patient was seen, as this information can be updated by other users. Medical History Hypokalemia Thyroid nodule History of ulcer disease History of hyperlipidemia History of emphysema History of anxiety History of depression History of coronary artery disease Abnormal findings on diagnostic imaging of heart and coronary circulation Abnormal nuclear cardiac imaging test Obesity Pulmonary emphysema Dyspnea on exertion Lung nodule Thyroiditis Diastolic dysfunction Thyroid disease History of gastroesophageal reflux (GERD) Atypical chest pain Bigeminy PAC (premature atrial contraction) Generalized anxiety disorder Recurrent major depression resistant to treatment Dysphagia An EGD was done. Noted that her gastric sleeve was somewhat expanded. She also had dilatation done on her esophagus. Recommended repeat in approximately 3 years. Thyroiditis She also has hypothyroidism likely related to this. With her elevated TSH, I am going to increase her levothyroxine dose and recheck her levels. Metabolic syndrome Pre-diabetes Bilateral foot pain Abnormal weight Urinary incontinence Vitamin D deficiency Hypothyroidism Low back pain Knee pain Hyperlipidemia Hypertension Surgical History History of hysterectomy Status post gastric banding surgery 07/23/18 Family History Other Anxiety Coronary artery disease Depression Diabetes Hypertension No significant family history Obesity Social History (Updated 06/01/25 @ 07:25 by Melanie Mistry RN) Smoking Status: Former smoker smoking status stop date: November 2024 second hand exposure: No alcohol intake: never substance use type: denies use current occupational status: unemployed Travel in the last 8 weeks?: None household members: spouse housing: house number of children: 2 current occupational exposures/hazards: No caffeine: No Have you lived/traveled outside US in past 30 days?: No Contact w/someone who lives/traveled outside US past 30 days?: No Exposure to someone with infectious disease in past 14 days?: No Do you have a fever (greater than 100.4 F or 38 C)?: No Have you tested positive for COVID-19?: No Exposed to someone with COVID-19 in past 14 days?: No Do you have a sore throat?: No Do you have a cough?: No Do you have any weakness?: No Are you experiencing any nausea/vomitting?: No Do you have any diarrhea?: No Are you experiencing any unusual bleeding?: No Do you have any muscle aches/pain?: No Do you have any abdominal pain?: No Are you experiencing loss of taste or smell?: No Other Medical History Have you received the Flu Vaccine for this season: No Have you received the Pneumonia Vaccine: Yes Review of Systems Review of Systems Review of systems (narrative): Negative *Cardiovascular Comments: Negative *Gastrointestinal Comments: Negative *Genitourinary Comments: Negative *Musculoskeletal Comments: Negative *Neurologic Comments: Negative Meds Home Medications and Allergies Home Medications ?Medication ?Instructions ?Recorded ?Confirmed ?Type ergocalciferol (vitamin D2) 1,250 See Rx Instructions .Route 12/28/23 06/01/25 Rx mcg (50,000 unit) capsule .COMPLEX #14 caps lisinopril 10 mg tablet 10 mg PO DAILY 90 days #90 tabs 10/28/24 06/01/25 Rx bupropion HCl 150 mg 24 hr tablet, 150 mg PO DAILY 11/07/24 06/01/25 History extended release pantoprazole 40 mg tablet,delayed 40 mg PO DAILY 11/07/24 06/01/25 History release aspirin 81 mg tablet,delayed 81 mg PO DAILY #30 tabs 01/08/25 06/01/25 Rx release (Adult Low Dose Aspirin) buspirone 10 mg tablet 10 mg PO TID PRN N/A 01/23/25 06/01/25 History levothyroxine 200 mcg capsule 200 mcg PO DAILY #30 caps 02/24/25 06/01/25 Rx amitriptyline 25 mg tablet 25 mg PO DAILY N/A 03/19/25 06/01/25 History cholecalciferol (vitamin D3) 1,250 1,250 mcg PO DIRECTED SUPPLIMENT 03/19/25 06/01/25 History mcg (50,000 unit) capsule atorvastatin 10 mg tablet See Rx Instructions .Route 04/08/25 06/01/25 Rx .COMPLEX #30 tabs cariprazine 3 mg capsule (Vraylar) See Rx Instructions .Route 04/08/25 06/01/25 Rx .COMPLEX #30 caps oxybutynin chloride 10 mg See Rx Instructions .Route 04/08/25 06/01/25 Rx tablet,extended release 24 hr .COMPLEX #30 tabs furosemide 40 mg tablet 20 mg PO DAILY 04/16/25 06/01/25 History spironolactone 25 mg tablet 25 mg PO DAILY 04/16/25 06/01/25 History duloxetine 30 mg capsule,delayed 30 mg PO DAILY #30 caps 04/29/25 06/01/25 Rx release duloxetine 60 mg capsule,delayed 60 mg PO DAILY #90 caps 04/29/25 06/01/25 Rx release albuterol sulfate 90 mcg/actuation 2 puff inhalation NEEDED PRN 05/12/25 06/01/25 History aerosol inhaler Shortness Of Breath budesonide-formoterol HFA 160 2 puff inhalation BID 05/27/25 06/01/25 History mcg-4.5 mcg/actuation aerosol inhaler (Symbicort) levothyroxine 25 mcg tablet 25 mcg PO DAILY 05/27/25 06/01/25 History vonoprazan 20 mg tablet (Voquezna) 20 mg PO DAILY 05/27/25 06/01/25 History New Prescriptions to Start Prescriptions: Allergies Allergy/AdvReac Type Severity Reaction Status Date / Time adhesive tape Allergy Rash Verified 06/01/25 07:18 Exam *Routine HEENT Exam Head: Present normocephalic Eye: Present EOMI and PERRL ENT: Present mucous membranes moist *Routine Neck Exam Neck: Present supple *Routine Respiratory Exam Respiratory: Present CTA bilaterally *Routine Cardiovascular Exam Cardiovascular: Present RRR *Routine Abdominal Exam Abdominal: Present soft and normoactive bowel sounds; Absent tenderness *Routine Rectal Exam Rectal:: deferred *Routine Genitalia Exam Genitalia:: deferred *Routine Extremities Exam Extremities: Absent cyanosis, clubbing or edema *Routine Skin Exam Skin: Present warm; Absent rash *Routine Neurological Exam Neurological: Present alert and oriented X3 Assessment and Plan *Assessment and plan (1) Personal history of colon polyps, unspecified: Status: Acute Category: Medical Code(s): Z86.0100 - Personal history of colon polyps, unspecified (2) Screening for colon cancer: Status: Acute Category: Medical Code(s): Z12.11 - Encounter for screening for malignant neoplasm of colon Plan A/P: 1. Personal history of colon polyps (unspecified) and screening for colon cancer is the preprocedural diagnosis. The patient will be anesthetized/sedated using MAC sedation. The patient has been seen and examined. Cardiac and lung assessment prior to the examination is stable. Proceed with planned screening colonoscopy.
[2025-05-27 12:50] VITALS: BMI 40.1
[2025-06-01 07:15] VITALS: BP 143/72; PULSE 59; RESP 18; TEMP 36.4; O2SAT 98
[2025-06-01] MEDS: LACTATED RINGERS 1000ML 1,000 ML 50 ML IV (07:33)
--- NOTE | 2025-06-01 07:51 | EXP.ANES.CKL ---
[facility] Disclaimer: The information contained in this section may have been updated after the patient was seen, as this information can be updated by other users. Medical History Hypokalemia Thyroid nodule History of ulcer disease History of hyperlipidemia History of emphysema History of anxiety History of depression History of coronary artery disease Abnormal findings on diagnostic imaging of heart and coronary circulation Abnormal nuclear cardiac imaging test Obesity Pulmonary emphysema Dyspnea on exertion Lung nodule Thyroiditis Diastolic dysfunction Thyroid disease History of gastroesophageal reflux (GERD) Atypical chest pain Bigeminy PAC (premature atrial contraction) Generalized anxiety disorder Recurrent major depression resistant to treatment Dysphagia An EGD was done. Noted that her gastric sleeve was somewhat expanded. She also had dilatation done on her esophagus. Recommended repeat in approximately 3 years. Thyroiditis She also has hypothyroidism likely related to this. With her elevated TSH, I am going to increase her levothyroxine dose and recheck her levels. Metabolic syndrome Pre-diabetes Bilateral foot pain Abnormal weight Urinary incontinence Vitamin D deficiency Hypothyroidism Low back pain Knee pain Hyperlipidemia Hypertension Surgical History History of hysterectomy Status post gastric banding surgery 07/23/18 Family History Other Anxiety Coronary artery disease Depression Diabetes Hypertension No significant family history Obesity Social History (Updated 06/01/25 @ 07:25 by Melanie Mistry RN) Smoking Status: Former smoker smoking status stop date: November 2024 second hand exposure: No alcohol intake: never substance use type: denies use current occupational status: unemployed Travel in the last 8 weeks?: None household members: spouse housing: house number of children: 2 current occupational exposures/hazards: No caffeine: No Have you lived/traveled outside US in past 30 days?: No Contact w/someone who lives/traveled outside US past 30 days?: No Exposure to someone with infectious disease in past 14 days?: No Do you have a fever (greater than 100.4 F or 38 C)?: No Have you tested positive for COVID-19?: No Exposed to someone with COVID-19 in past 14 days?: No Do you have a sore throat?: No Do you have a cough?: No Do you have any weakness?: No Are you experiencing any nausea/vomitting?: No Do you have any diarrhea?: No Are you experiencing any unusual bleeding?: No Do you have any muscle aches/pain?: No Do you have any abdominal pain?: No Are you experiencing loss of taste or smell?: No [facility] Anesthesia Checklist Patient Identification Patient Identification: Arm Band and Verbal (Name & ) Structural Data Admitted From: Home Planned Operative Procedure/s: colonoscopy Consent for Planned Operative Procedure(s) Verified: Yes Verified Documents: Surgical Consent NPO Status Verified Time NPO: 00:00 Additional verifications Anesthesia Reactions: No Hx Blood Transfusions: No Blood Transfusion Reaction: No Airway Assessment Mallampati Score:: Class II C-Spine Mobility Assessed: Yes TMJ Mobility Assessed: Yes Dentition: Dentures-good fit Neurological Assessment Level of Consciousness: Awake, Alert and Appropriate Hx Seizures: No Numbness or tingling in extremities: No Anesthesia Plan Anesthesia Risk discussed: Yes Anesthesia Plan: Verified ASA Class: III Anesthesia Type: MAC
--- NOTE | 2025-06-01 07:57 | P.PCN_ITS ---
[facility] Procedure Note Date: 06/01/25 Time: 08:04 Procedure Note:: Sigmoidoscopy procedure Report: Aborted colonoscopy Endoscopist: Breezy Bran II, MD Referring physician: Srinivas Lamb DO/Brennen Flores MD ([place]) Date of Procedure: June 01, 2025 Equipment: Olympus [id number] adult colonoscope Sedation: MAC sedation Indication: Mrs. Lundberg is a 60-year-old female who is here for screening colonoscopy. The patient does report a lot of gassiness, some bloating and loose stools in the morning. The patient reports no rectal bleeding, unintentional weight loss or family history of colon cancer. The patient had been arranged for colonoscopy on 2 prior occasions this year but canceled. The patient's last colonoscopy was many years ago (between 2009 and 2012) and states that the single polyp was removed. She had been sent to Pete De Leon M.D. for colonoscopy in October 2019 but this does not appear to have been done. The patient recently has had an upper endoscopy in [place] because of possible H. pylori. The patient has undergone prior gastric sleeve and then second surgery for Julio Cesar-en-Y gastric bypass. She does have an upcoming upper GI series in [place]. The examination is deemed medically necessary for screening colonoscopy. Procedure: Prior to the procedure, a history and physical exam was performed, and patient's medications and allergies were reviewed. The risks, benefits and alternatives of the sedation and procedure were discussed with the patient. All questions were answered and informed consent was obtained. The patient was brought to the procedure room. Patient identification and proposed procedure were verified by the physician and the nurse. The patient was placed in a left lateral decubitus position and the scope was passed under direct vision. Throughout the procedure, the patient's blood pressure, pulse, and oxygen saturations were monitored continuously. The colonoscopy was accomplished without difficulty. The patient tolerated the procedure well. Findings: On digital rectal examination, there was normal rectal tone. There were no external hemorrhoids. The scope was then inserted through the anal canal into the rectum and advanced to 25 cm. There was an abundant amount of brown liquid stool and visualization of the colonic mucosa was poor. The preparation was inadequate and the procedure was aborted. Impression: 1. Inadequate bowel preparation?aborted colonoscopy Plan: I would recommend repeat screening colonoscopy with extended 2-day bowel preparation.
[2025-06-01 08:05] VITALS: BP 94/56; PULSE 49; RESP 14; TEMP 36.1; O2SAT 94
[2025-06-01 08:15] VITALS: BP 128/88; PULSE 56; RESP 17; TEMP 36.1; O2SAT 97
[2025-06-01 08:25] VITALS: BP 128/88; PULSE 62; RESP 18; TEMP 36.1; O2SAT 97
[2025-06-01 08:32] VITALS: BP 124/76; PULSE 56; RESP 17; TEMP 36.1; O2SAT 97
== END 2025-06-01 08:47 | disposition home or self-care (01) ==
PROVIDERS: PCP Internal Medicine; Visit Provider Internal Medicine Gastroenterology
PROC: 0DJD8ZZ Inspection of Lower Intestinal Tract, Via Natural or Artificial Opening Endoscopic (ICD-10-PCS; CPT 45378; principal; 2025-06-01 08:00)
DX: Z12.11 Encounter for screening for malignant neoplasm of colon (principal); Z86.0100 Personal history of colon polyps, unspecified; E66.9 Obesity, unspecified; Z68.41 Body mass index [BMI] 40.0-44.9, adult; E06.9 Thyroiditis, unspecified; I11.9 Hypertensive heart disease without heart failure; E78.5 Hyperlipidemia, unspecified; F33.9 Major depressive disorder, recurrent, unspecified; F41.1 Generalized anxiety disorder; E55.9 Vitamin D deficiency, unspecified; K21.9 Gastro-esophageal reflux disease without esophagitis; Z87.891 Personal history of nicotine dependence; Z79.82 Long term (current) use of aspirin; Z79.899 Other long term (current) drug therapy; Z79.890 Hormone replacement therapy; Z79.51 Long term (current) use of inhaled steroids; Z91.048 Other nonmedicinal substance allergy status; Z98.84 Bariatric surgery status
CPT/HCPCS: G0121; J2003; J2704; J7120

== ENCOUNTER 2025-06-05 08:37 | Outpatient (CLI) | payer MEDICAID, SELFPAY ==
--- OUTSIDE RECORDS SUMMARY | 2025-06-05 08:42 | XMS_ITS | Encounter Summary ---
Author Organization [employer] ([place], [place], [place], [place]) Address [address] [place] [address] Care Team Providers Care Senior Sas Developer Name Role Phone Unavailable Primary Care Provider Unavailabl e Encounter Details Date Type Department Care Team (Late st Contact Info) Description 04/06/2021 Transcribed Document [facility] [place] Family Medicine [place] [address] ProviderPat MD [address] [place] [address] Social History Tobacco Use Types [...] ProviderMD - 04/06/2021 11:42 AM CDT [facility] Main OR PostOp Summary Primary Physician: MARION COBOS MD-SNU Finalized Date/Time: 04/07/21 13:01:30 Pt. Name: BUSHRA LUNDBERG D.O.B./Sex: 1965 Female Med Rec #: [id number] Physician: MARION COBOS MD-SNU Financial #: [id number] Pt. Type: O Room/Bed: ASA/3 Admit/Disch: 04/06/21 06:47:00 - 04/06/21 15:30:00 Institution: [facility] Main OR PostOp Case Times Entry 1 [...]
--- OUTSIDE RECORDS SUMMARY | 2025-06-05 08:42 | XMS_ITS | Encounter Summary ---
Author Organization [employer] ([place], [place], [place], [place]) Address [address] [place] [address] Care Team Providers Care Grouter Helper Name Role Phone Unavailable Primary Care Provider Unavailabl e Encounter Details Date Type Department Care Team (Late st Contact Info) Description 04/06/2021 Transcribed Document [facility] [place] [facility] [place] [address] ProviderPat MD [address] [place] [address] Social History Tobacco Use Types [...] and water are not available, use hand frozen food selector. ? Change your dressing as told by [...] Managing pain, stiffness, and swelling ??? Take eapf-tru-mceirao and prescription medicines only as told by [...] keep your urine pale yellow. ? Take gmfx-nzq-gutjzlm or prescription medicines. ? Eat foods that [...] provider. Document Revised: 05/29/2019 Document Reviewed: 05/29/2019 [employer] Patient Education ? 2020 [employer] Pharmacology General Anesthesia, Adult, Care After [...] activities are safe for you. ??? Take zbdc-tkc-yhbxfix and prescription medicines only as told by [...] provider. Document Revised: 09/06/2018 Document Reviewed: 04/19/2018 [employer] Patient Education ? 2020 [employer]. documented in this encounter Plan of Treatment Not on file documented as of this encounter Visit Diagnoses Not on filedocumented in this encounter
--- OUTSIDE RECORDS SUMMARY | 2025-06-05 08:42 | XMS_ITS | Encounter Summary ---
Author Organization [employer] ([place], [place], [place], [place]) Address [address] [place] [address] Care Team Providers Care Environmental Protection Inspector Name Role Phone Unavailable Primary Care Provider Unavailabl e Encounter Details Date Type Department Care Team (Late st Contact Info) Description 04/01/2021 Transcribed Document [facility] [place] Family Medicine [facility] [place] [address] ProviderPat MD [address] [place] [address] Social History Tobacco Use Types [...] Source : Measured Height Entry Format : [place] Height, Feet : 0 ft(Converted to: 0 cm, 0 Inch) Height, Inches : 63.5 Inch(Converted to: 5 ft 3 Inch, 161.29 cm) Clinical Height : 161.29 cm Weight Source : Standing scale Weight Entry Format : [place] Clinical Dosing Weight : 110.94 kg Weight, Pounds : 244 lb Weight, Ounces : 1 oz Body Surface Area (BSA) : 2.12 m2 Body Mass Index : 42.6 kg/m2 (>HHI) [place] Body Weight : 53 kg ROBERT HOLBROOK RN - 04/04/2021 8:07 EDT Health Histories Smoking Status : Former smoker, quit more than 30 days ago Smokeless Tobacco Status : Never Implant/Device Type, Field Consultant and Model : hardware in neck Anthony [...] : Yes Spiritual/Cultural Needs Comment : 04/06 Synagogue Preference : Jew ([employer]) Spiritual/Cultural Needs Comment : 04/06 Anthony Cullen Rn - 04/01/2021 9:58 EDT [place] Suicide Severity Rating Scale (C-SSRS) CSSRS Past [...] Info Legal Guardian : Friend Support Person/Patient Jet Inspector : Yes Support Person/Pt Rep Name : Lena Chapman - friend Support Person/Pt Rep Contact Information : [phone] Want Family/Rep/Phys Notified of Admit : No Emergency Contact #1 : ` Emergency Contact #1 Phone Number : ` Emergency Contact #1 Relationship : ` Emergency Contact #2 : ` Emergency Contact #2 Phone Number : ` Emergency Contact #2 Relationship : ` Primary Language : Lebanese Communication Barrier : None Newspaper Publisher Needed : No Anthony Cullen Rn - 04/01/2021 9:58 EDT [place] Scale Vikram Sensory Perception : No impairment [...]
--- OUTSIDE RECORDS SUMMARY | 2025-06-05 08:42 | XMS_ITS | Encounter Summary ---
Author Organization [employer] ([place], [place], [place], [place]) Address [address] [place] [address] Care Team Providers Care Umbrella Tipper Machine Name Role Phone Unavailable Primary Care Provider Unavailabl e Encounter Details Date Type Department Care Team (Late st Contact Info) Description 10/06/2020 Transcribed Document [facility] [place] Family Medicine [facility] [place] [address] ProviderPat MD [address] [place] [address] Social History Tobacco Use Types [...] - Pat ProviderMD - 10/06/2020 12:27 PM ROPE TIER [facility] Main OR PACU Summary Primary Physician: MARION COBOS MD-SNU Finalized Date/Time: 10/06/20 15:35:11 Pt. Name: BUSHRA LUNDBERG D.O.B./Sex: 1965 Female Med Rec #: [id number] Physician: MARION COBOS MD-MIKO Financial #: [id number] Pt. Type: O Room/Bed: Admit/Disch: 10/06/20 08:45:00 - Institution: [facility] Main OR PACU I Case Times Entry 1 In PACU I 10/06/20 13:20:00 Ready for PACU 10/06/20 14:25:00 Discharge Discharge from PACU 10/06/20 15:25:00 I Last Modified By: CINDY AGUIRRE RN 10/06/20 15:34:39 [facility] Main OR PACU Acuity Entry 1 Start Time 10/06/20 14:25:00 Stop Time 10/06/20 15:25:00 Acuity Level [facility] PACU Acuity I Last Modified By: CINDY AGUIRRE RN 10/06/20 15:35:08 Finalized By: CINDY AGUIRRE, RN Document Signatures Signed By: CINDY AGUIRRE RN 10/06/20 15:35 Electronically signed by Ash[facility] Conversion Interlocking Pavement Installer Cerner at 01/07/2023 7:31 PM CDT documented in this encounter Plan of Treatment Not on file documented as of this encounter Visit Diagnoses Not on filedocumented in this encounter
--- OUTSIDE RECORDS SUMMARY | 2025-06-05 08:42 | XMS_ITS | Referral Summary ---
Author Organization [employer] ([place], [place], [place], [place]) Address [address] [place] [address] Care Team Providers Care Utilization Review Nurse Name Role Phone Unavailable Primary Care Provider [...]
--- OUTSIDE RECORDS SUMMARY | 2025-06-05 08:42 | XMS_ITS | Encounter Summary ---
Author Organization [employer] ([place], [place], [place], [place]) Address [address] [place] [address] Care Team Providers Care Handle Attacher Name Role Phone Unavailable Primary Care Provider Unavailabl e Encounter Details Date Type Department Care Team (Late st Contact Info) Description 04/06/2021 Transcribed Document [facility] Neurology - [address] [facility] [address] [place] [address] Srinivas Melendez MD [address] [facility] [address] [place] [address] Social History Tobacco Use Types [...] diskectomy and fusion. 2. Replating from C4-C7. SIMULATION TECH: [place]. TYPE OF ANESTHESIA: GEA. DESCRIPTION [...] the distraction pins were. A 48 mm [place] plate was then affixed to the anterior [...] LOSS: 50 mL. DRAINS: None. COMPLICATIONS: None. /[id number] MD BEN Rodrigez/RIGOBERTO / MPT / MODL /[id number] CC: Leeann Johnson documented in this encounter Plan of Treatment Not on file documented as of this encounter Visit Diagnoses Not on filedocumented in this encounter
--- OUTSIDE RECORDS SUMMARY | 2025-06-05 08:42 | XMS_ITS | Encounter Summary ---
Author Organization [employer] ([place], [place], [place], [place]) Address [address] [place] [address] Care Team Providers Care Video Conference Specialist Name Role Phone Unavailable Primary Care Provider Unavailabl e Encounter Details Date Type Department Care Team (Late st Contact Info) Description 10/05/2020 Transcribed Document [facility] [place] [facility] [place] [address] ProviderPat MD [address] [place] [address] Social History Tobacco Use Types [...] - Historical ProviderMD - 10/05/2020 4:24 PM CARD CLOTHIER PAT Adult Entered On: 10/05/2020 16:28 EST Performed On: 10/05/2020 16:24 EST by Radha Hawley RN Height and Weight, Clinical Dosing Height Source : Measured Height Entry Format : [place] Height, Feet : 5 ft(Converted to: 152 cm, 60 Inch) Height, Inches : 3 Inch(Converted to: 0 ft 3 Inch, 7.62 cm) Clinical Height : 160.02 cm Weight Source : Standing scale Weight Entry Format : [place] Clinical Dosing Weight : 110.91 kg Weight, Pounds : 244 lb Body Surface Area (BSA) : 2.11 m2 Body Mass Index : 43.3 kg/m2 (>HHI) [place] Body Weight : 52 kg Radha Hawley [...] Radha Hawley RN - 10/05/2020 16:24 EST [place] Suicide Severity Rating Scale (C-SSRS) CSSRS Past [...] Support Person/Pt Rep Name : Raymond Lundberg [phone] Want Family/Rep/Phys Notified of Admit : No Emergency Contact #1 : x Emergency Contact #1 Phone Number : x Emergency Contact #1 Relationship : x Emergency Contact #2 : x Emergency Contact #2 Phone Number : x Emergency Contact #2 Relationship : x Chief Complaint : x Primary Language : Haitian Communication Barrier : None Registered Health Nurse Needed : No Radha Hawley RN - [...]
--- OUTSIDE RECORDS SUMMARY | 2025-06-05 08:42 | XMS_ITS | Encounter Summary ---
Author Organization [employer] ([place], [place], [place], [place]) Address [address] [place] [address] Care Team Providers Care Caption Writer Name Role Phone Unavailable Primary Care Provider Unavailabl e Encounter Details Date Type Department Care Team (Late st Contact Info) Description 10/06/2020 Transcribed Document [facility] [place] Family Medicine [address] [place] [address] ProviderPat MD [address] [place] [address] Social History Tobacco Use Types [...] - Pat ProviderMD - 10/06/2020 12:27 PM VIDEO CONTROL OPERATOR [facility] Main OR Preop Summary Primary Physician: MARION COBOS MD-SNU Finalized Date/Time: 10/06/20 15:23:47 Pt. Name: BUSHRA LUNDBERG D.O.B./Sex: 1965 Female Med Rec #: [id number] Physician: MARION COBOS MD-SNU Financial #: [id number] Pt. Type: O Room/Bed: Admit/Disch: 10/06/20 08:45:00 - Institution: [facility] PreOp Case Times Entry 1 In Preop 10/06/20 09:48:00 Ready for Holding n/a Room Patient Ready for 10/06/20 10:45:00 Surgery Patient Out of Preop 10/06/20 11:55:00 Patient Out of n/a Holding Room Last Modified By: Radha Hawley RN 10/06/20 12:19:10 [facility] PreOp Case Times Audit 10/06/20 12:19:10 Route Delivery Supervisor: BRITTON Modifier: RAMEZALR <+> 1 Patient Out of Preop Finalized By: Radha Hawley, RN Document Signatures Signed By: Radha Hawley RN 10/06/20 15:23 Electronically signed by Ashwin [facility] Conversion Director Career Cerner at 01/07/2023 7:30 PM CDT documented in this encounter Plan of Treatment Not on file documented as of this encounter Visit Diagnoses Not on filedocumented in this encounter
--- OUTSIDE RECORDS SUMMARY | 2025-06-05 08:42 | XMS_ITS | Encounter Summary ---
Author Organization [employer] ([place], [place], [place], [place]) Address [address] [place] [address] Care Team Providers Care Kitchenhand Name Role Phone Unavailable Primary Care Provider Unavailabl e Encounter Details Date Type Department Care Team (Late st Contact Info) Description 04/06/2021 Transcribed Document [facility] [place] Family Medicine [facility] [place] [address] ProviderPat MD [address] [place] [address] Social History Tobacco Use Types [...] AM CDT [facility] Main OR PACU Summary Primary Physician: MARION COBOS MD-SNRaquel Finalized Date/Time: 04/06/21 14:03:32 Pt. Name: BUSHRA LUNDBERG D.O.B./Sex: 1965 Female Med Rec #: [id number] Physician: MARION COBOS MD-SNU Financial #: [id number] Pt. Type: O Room/Bed: ASA/3 Admit/Disch: 04/06/21 06:47:00 - Institution: [facility] Main OR PACU I Case Times Entry 1 In PACU I 04/06/21 13:05:00 Ready for PACU 04/06/21 13:55:00 Discharge Discharge from PACU 04/06/21 13:55:00 I Last Modified By: COSMO PIERRE RN 04/06/21 14:03:24 [facility] Main OR PACU I Case Times Audit 04/06/21 14:03:24 [employer] Operations Vice President: [id number] Modifier: [id number] <+> 1 Ready for PACU Discharge <+> 1 Discharge from PACU I Finalized By: COSMO PIERRE RN Document Signatures Signed By: COSMO PIERRE RN 04/06/21 14:03 Electronically signed by Ashwin [facility] Conversion Bakery Associate Cerner at 01/07/2023 7:30 PM CDT documented in this encounter Plan of Treatment Not on file documented as of this encounter Visit Diagnoses Not on filedocumented in this encounter
--- OUTSIDE RECORDS SUMMARY | 2025-06-05 08:42 | XMS_ITS | Encounter Summary ---
Author Organization [employer] ([place], [place], [place], [place]) Address [address] [place] [address] Care Team Providers Care Stock Trader Name Role Phone Unavailable Primary Care Provider Unavailabl e Encounter Details Date Type Department Care Team (Late st Contact Info) Description 04/06/2021 Transcribed Document [facility] [facility] [place] [address] ProviderPat MD [address] [place] [address] Social History Tobacco Use Types [...] [facility] Main OR IntraOp Summary Primary Physician: MARION COBOS MD-SNU Finalized Date/Time: 04/07/21 13:03:57 Pt. Name: MELANIE LUNDBERG D.O.B./Sex: 1965 Female Med Rec #: [id number] Physician: MARION COBOS MD-SNU Financial #: [id number] Pt. Type: O Room/Bed: ASA/3 Admit/Disch: 04/06/21 06:47:00 - 04/06/21 15:30:00 Institution: [facility] IntraOp Case Attendance Entry 1 Entry 2 Entry 3 Case Attendee MARION COBOS WASSON, SANDRA D RN NELSON NGUYEN, MADELEINE NEGRETE-SNU TECH Role Performed Surgeon/Proceduralist, Boat Engine Mechanic, First Scrub, First First Time In 04/06/21 [...] D, VITO MERLOS MD-ANS Role Performed Physician delinquent tax collection assistant TUMBLER TENDER/Nurse Territory Account Representative Anesthesiologist of Record Time In 04/06/21 11:15:00 [...] ATTENDEE #1 Hema Schreiber, Robyn Sales, Diagnostic Rn Procedures Role Performed Vendor Scrub, Second Care Mgr Time In 04/06/21 11:15:00 04/06/21 11:15:00 04/06/21 [...] Lydia Cordero, Rn Role Performed Scrub, First Boat Engine Mechanic, First Time In 04/06/21 11:57:00 04/06/21 12:00:00 Time Out 04/06/21 13:04:00 04/06/21 13:04:00 Procedure Cervical Discectomy Cervical Discectomy Fusion Anterior Fusion Anterior Other Attendee LUNCH RELIEF LUNCH Superficial Wound Closed By: Last Modified By: CLARK JAUREGUI RN WASSON, SANDRA D, RN 04/06/21 13:03:22 04/06/21 13:03:22 [facility] IntraOp Case Attendance Audit 04/06/21 13:03:22 Canteen Attendant: WASSONSY Modifier: WASSONSY 1 <+> Time Out [...] Procedure Cervical Discectomy Fusion Anterior 04/06/21 12:05:52 Canteen Attendant: WASSONSY Modifier: WASSONSY <+> 11 Case Attendee <+> 11 Role Performed <+> 11 Time In <+> 11 Procedure <+> 11 Other Attendee 04/06/21 11:57:37 Canteen Attendant: WASSONSY Modifier: WASSONSY <+> 10 Case Attendee <+> 10 Role Performed <+> 10 Time In <+> 10 Procedure <+> 10 Other Attendee 04/06/21 11:57:14 Canteen Attendant: WASSONSY Modifier: WASSONSY 1 <*> Procedure Cervical [...] Procedure Cervical Discectomy Fusion Anterior 04/06/21 11:53:13 Canteen Attendant: WASSONSY Modifier: WASSONSY 1 <*> Procedure Cervical [...] Role Performed <+> 9 Procedure 04/06/21 11:48:20 Canteen Attendant: WASSONSY Modifier: WASSONSY <+> 8 Case Attendee <+> 8 Role Performed <+> 8 Time Out <+> 8 Procedure 04/06/21 11:47:37 Canteen Attendant: WASSONSY Modifier: WASSONSY 1 <+> Time In [...] Anterior 7 <*> Other Attendee BRANDYN RICHARDSON [facility] IntraOp Case Times Entry 1 Patient In Room Time 04/06/21 11:15:00 Out Room Time 04/06/21 13:04:00 Anesthesia Start Time 04/06/21 11:15:00 Stop Time 04/06/21 13:04:00 Surgery / Procedure Times Start Time 04/06/21 11:42:00 Stop Time 04/06/21 12:57:00 Last Modified By: CLARK JAUREGUI RN 04/06/21 13:03:11 [facility] IntraOp Case Times Audit 04/06/21 13:03:11 Canteen Attendant: HANG Modifier: WASSONSY <+> 1 Out Room Time <+> 1 Stop Time <+> 1 Stop Time 04/06/21 11:46:55 Canteen Attendant: HANG Modifier: WASSONSY <+> 1 Start Time [facility] IntraOp Cautery Entry 1 Entry 2 ESU Identification Cautery Type Monopolar ESU BiPolar ESU Cautery Type Comments ID Number [id number] ID Type Hospital Number Hospital Number Cautery [...] CLARK JAUREGUI RN 04/06/21 11:49:21 04/06/21 11:50:42 [facility] IntraOp Cautery Audit 04/06/21 11:50:42 Canteen Attendant: HANG Modifier: JUVENTINOSY 2 <*> [place] Number [id number] [facility] IntraOp Communication Entry 1 Communication To Family/Significant other Comment START Communication By CLARK JAUREGUI RN Date and Time 04/06/21 11:46:00 Last Modified By: CLARK JAUREGUI RN 04/06/21 11:47:05 [facility] IntraOp Counts Verification Entry 1 Procedure Cervical Discectomy Fusion Anterior Count Info Count Type Sponge, Sharps, Miscellaneous Counts Verification Baseline/pre-procedure Sequence Count Results Not Applicable Counts Performed By Count Performed By Hema Schreiber, SARAH (Scrub) Count Performed By CLARK JAUREGUI RN (RN) Last Modified By: CLARK JAUREGUI RN 04/06/21 11:48:27 [facility] IntraOp Counts Verification Audit 04/06/21 11:48:27 Canteen Attendant: WASSONSY Modifier: WASSONSY 1 <*> Procedure Cervical Discectomy Fusion Anterior 1 <+> Count Performed By (Scrub) [facility] IntraOp Counts Final Entry 1 Procedure Cervical Discectomy Fusion Anterior Final Count Info Count Type Sponge, Sharps, Miscellaneous Counts Verification Skin Closure/end of Sequence procedure Count Results Correct, surgeon notified Counts Performed By Count Performed By Hema Schreiber CST (Scrub) Count Performed By CLARK JAUREGUI, RN (RN) Last Modified By: CLARK JAUREGUI RN 04/06/21 12:49:55 [facility] IntraOp Counts Final Audit 04/06/21 12:49:55 Canteen Attendant: WASSONSY Modifier: WASSONSY 1 <*> Procedure Cervical Discectomy Fusion Anterior 1 <+> Count Performed By (Scrub) 1 <+> Count Performed By (RN) [facility] IntraOp Cultures and Spec Summary Entry 1 Cultrures and Specimens Specimen Ordered: Yes Test(s) Routine/Path-Lab Requested/Final Disposition Last Modified By: CLARK JAUREGUI RN 04/06/21 11:47:49 General Comments: A. EXPLANTED HARDWARE [facility] IntraOp Departure from OR Entry 1 Integumentary Assessment Integumentary WDL Assessment WDL Transfer/Handoff Transfer to PACU Phase I Handoff Method Phone call Post-op Transport Stretcher/Gurney Via Patient Transport LEANNE RUIZ, NA, Accompanied by HEBERT GAMBOA Last Modified By: CLARK JAUREGUI RN 04/06/21 12:06:34 [facility] IntraOp Departure from OR Audit 04/06/21 12:06:34 Canteen Attendant: HANG Modifier: WASSONSY <+> 1 Patient Transport Accompanied by [facility] IntraOp Dressing and Packing Entry 1 Type Dressing Location NECK Wound Dressing Item [place] Applied By HEBERT GAMBOA Other Comments OINTMENT, COVADERM Last Modified By: CLARK JAUREGUI RN 04/06/21 12:07:25 [facility] IntraOp Fire Risk Assessment Entry 1 Fire Info Surgical Site or 1- Yes Incision Above the Xyphoid Open O2 Source 0- No (Mask or Cannula) Available Ignition 1- Yes (ESU, Laser, Light Source) Fire Risk 2 Assessment Score Fire Score Fire Risk Yes Assessment Complete Fire Risk CLARK JAUREGUI, presiding steward Verified By Fire Risk 04/06/21 11:14:00 Assessment Verified Date/Time Fire Risk Standard Fire Yes Safety Precautions Followed Last Modified By: CLARK JAUREGUI RN 04/06/21 11:50:47 [facility] IntraOp Fire Risk Assessment Audit 04/06/21 11:50:47 Canteen Attendant: HANG Modifier: WASSONSY <+> 1 Fire Risk Assessment Verified By [facility] IntraOp General Case Concrete Block Molder 1 Case Information OR OR 11 [facility] Case Level 1 Room Verified Yes Wound Class I - Clean Specialty Neurosurgery Anesthesia Type General ASA Class 3 Diagnosis Preop Diagnosis CERVICAL RADICULOPATHY Postop Same As Preop No Postop Diagnosis SEE MD POST OP NOTE Last Modified By: CLARK JAUREGUI RN 04/06/21 11:49:40 [facility] IntraOp General Case Data Audit 04/06/21 11:49:40 Canteen Attendant: HANG Modifier: WASSONSY 1 <*> OR OR 09 [facility] 1 <+> ASA Class 1 <+> Room Verified [facility] IntraOp Implant Log Entry 1 Entry 2 Entry 3 Type Tissue Implant Implant (Synthetic) Implant (Synthetic) (Biologic) Implant Log Implant Type Hardware Hardware Tissue Implant Type Bone Implant BONE VIVIGEN FORMABLE CAGE EIT CIF H 6MM 8DEG PLT ANT SKYLN HYBRD Identification [id number] Description Implant Quantity 1 1 1 Implant Site CERIVAL CERVICAL SPINE OP SITE Implant Identification Model Number Implant [id number] Identification Serial Number Implant [id number] Identification Lot Number Implant Lifenet:Lifenet J&J:Depuy:Depuy Spine J&J:Depuy:Depuy Spine Identification Transplant Srv Provider Scribe Name: Implant [id number] Identification Catalog Number Implant Size Implant Has an Yes Yes Expiration Date Implant Expiration 02/23/22 02/14/25 Date Wasted Radioactive Material Time Implanted Tissue Implant Continue for Tissue Implant Documentation Tissue Identification Number Graft Prep Per Yes Provider Scribe Instructions: Tissue Preparation Thawed Method: Reconstitution Solution: Reconstitution Solution Lot Number Reconstitution Solution Expiration Date: Thawing Solution NACL Thawing Solution [id number] Lot Number Thawing Solution 12/16/22 Expiration Date Preparation Materials, Other Preparation Materials, Other Lot Number Preparation Materials, Other Expiration Date Tissue Hema Schreiber, SARAH Prepared/Processed By Provider Scribe Yes Paperwork Completed Implant Type Comment Last Modified By: CLARK JAUREGUI RN WASSON, SANDRA D, RN WASSON, SANDRA D, RN 04/06/21 12:38:32 04/06/21 12:38:32 04/06/21 12:49:39 Entry 4 Entry 5 Type Implant (Synthetic) Implant (Synthetic) Implant Log Implant Type Hardware Hardware Tissue Implant Type Implant SCR SKYLN VARI-OVSZ SCR SKYLN VARI SD Identification [id number] Description Implant Quantity 6 2 Implant Site OP SITE OP SITE Implant Identification Model Number Implant Identification Serial Number Implant Identification Lot Number Implant J&J:Depuy:Depuy Spine J&J:Depuy:Depuy Spine Identification Provider Scribe Name: Implant [id number] [id number] Identification Catalog Number Implant Size Implant Has an Expiration Date Implant Expiration Date Wasted Radioactive Material Time Implanted Tissue Implant Continue for Tissue Implant Documentation Tissue Identification Number Graft Prep Per Provider Scribe Instructions: Tissue Preparation Method: Reconstitution Solution: Reconstitution Solution Lot Number Reconstitution Solution Expiration Date: Thawing Solution Thawing Solution Lot Number Thawing Solution Expiration Date Preparation Materials, Other Preparation Materials, Other Lot Number Preparation Materials, Other Expiration Date Tissue Prepared/Processed By Provider Scribe Paperwork Completed Implant Type Comment Last Modified By: CLARK JAUREGUI RN WASSON, SANDRA D, RN 04/06/21 12:49:39 04/06/21 12:49:39 [facility] IntraOp Implant Log Audit 04/06/21 12:49:39 Canteen Attendant: HANG Modifier: JENNIFERTONYROSALIA <+> 3 Implant Identification Description <+> 3 Implant Identification Provider Scribe Name: <+> 3 Implant Site <+> 3 Implant Quantity <+> 3 Implant Identification Catalog Number <+> 3 Implant Type <+> 3 Type <+> 4 Implant Identification Description <+> 4 Implant Identification Provider Scribe Name: <+> 4 Implant Site <+> 4 Implant Quantity <+> 4 Implant Identification Catalog Number <+> 4 Implant Type <+> 4 Type <+> 5 Implant Identification Description <+> 5 Implant Identification Provider Scribe Name: <+> 5 Implant Site <+> 5 Implant Quantity <+> 5 Implant Identification Catalog Number <+> 5 Implant Type <+> 5 Type [facility] IntraOp Intraoperative Assessment Entry 1 [...] Modified By: CLARK JAUREGUI RN 04/06/21 11:49:53 [facility] IntraOp Intraoperative Equipment Entry 1 Type Equipment Equipment Equipment Kg Suction System ID Number [id number] Setting 160 MM HG Intraop Monitoring Electrocardiogram Five lead placement (ECG) Electrode Placement Blood Pressure Non-Invasive BP Device Source Blood Pressure Arm, left upper Location Pulse Oximeter Hand, right Probe Site Antiembolic Devices Antiembolic Devices Sequential compression device, knee high Antiembolic Device Bilateral Location Antiembolic Device 11523 ID Number Scopes Photo/Video Documentation Photo No Video No Last Modified By: CLARK JAUREGUI RN 04/06/21 11:50:32 [facility] IntraOp Medication Admin Entry 1 Entry 2 Entry 3 Medication/Irrigant lidocaine 1% w/ SPNG SURGFOAM thrombin 5000units epinephrine 1:100,000 [id number] topical powder - 30ml vial - [id number] Combo Med List Time Administered Route of [...] Entry 4 Medication/Irrigant vancomycin 1Gm vial - [id number] Combo Med List Time Administered Route of ADDED TO NS IRRIGATIION Administration Dose Dose 1 Unit of Measure gram Volume Administered By MARION COBOS MD-SNRaquel Procedure Irrigation Irrigant Volume In Irrigant Volume Out Last Modified By: CLARK JAUREGUI RN 04/06/21 11:55:23 [facility] IntraOp Patient Positioning Entry 1 [...] Modified By: CLARK JAUREGUI RN 04/06/21 11:52:27 [facility] IntraOp Sign In Entry 1 [...] Modified By: CLARK JAUREGUI RN 04/06/21 11:55:41 [facility] IntraOp Sign Out Entry 1 [...] Modified By: CLARK JAUREGUI RN 04/06/21 13:03:21 [facility] IntraOp Sign Out Audit 04/06/21 13:03:21 Canteen Attendant: HANG Irizarry: JUVENTINOSY <+> 1 RN Sign Out Signature Date/Time [facility] IntraOp Skin Prep Entry 1 Procedure Cervical Discectomy Fusion Anterior Prescribed Yes Pre-Surgical Prep Completed Prep Area OP SITE AFTER ALCOHOL AND HIBICLENS PREP PER DR PAPITO Intraop Prep Integumentary WDL Assessment WDL Prep Agents Alcohol, Chlorhexadine gluconate, DuraPrep Prep by CLARK JAUREGUI, RN Hair Removal Methods No hair removal performed Last Modified By: CLARK JAUREGUI RN 04/06/21 11:52:57 [facility] IntraOp Surgical Procedures Entry 1 Procedure Cervical Discectomy Fusion Anterior Additional (C6-7 ACDF WITH Procedure REVISION OF C4-6 Description HARDWARE) Primary Procedure Yes Primary Surgeon MARION COBOS MD-SNU Start 04/06/21 11:42:00 Stop 04/06/21 12:57:00 Anesthesia Type General Specialty Neurosurgery Wound Class I - Clean Last Modified By: CLARK JAUREGUI RN 04/06/21 13:03:14 General Comments: ANCEF 2 GRAM IV PER ANESTHESIA [facility] IntraOp Surgical Procedures Audit 04/06/21 13:03:14 Canteen Attendant: HANG Modifier: WASSONSY 1 <*> Stop 1 <*> Stop [facility] IntraOP Time Out Entry 1 [...] Modified By: CLARK JAUREGUI RN 04/06/21 11:44:18 [facility] IntraOp X-Ray and Images Entry 1 X-Ray/Imaging Type Fluoroscopy Fluoroscopy Type C-Arm Site OP SITE Inclusion Intern Name Robyn Kumar, Diagnostic Rn Procedures Last Modified By: CLARK JAUREGUI RN 04/06/21 11:57:01 Case Comments <None> Finalized By: BO ALEX Document Signatures Signed By: CLARK JAUREGUI RN 04/06/21 13:03 BO ALEX 04/07/21 13:03 Unfinalized History Date/Time Username Reason for Unfinalizing Freetext Reason for Unfinalizing 04/07/21 13:01 TOMAS Correct Billing Electronically signed by Monroe Christopher Conversion Broaching Machine Set Up Operator Cerner at 01/07/2023 7:31 PM CDT documented in this encounter Plan of Treatment Not on file documented as of this encounter Visit Diagnoses Not on filedocumented in this encounter
--- OUTSIDE RECORDS SUMMARY | 2025-06-05 08:42 | XMS_ITS | Encounter Summary ---
Author Organization [employer] ([place], [place], [place], [place]) Address [address] [place] [address] Care Team Providers Care Transportation Planning Engineer Name Role Phone Unavailable Primary Care Provider Unavailabl e Encounter Details Date Type Department Care Team (Late st Contact Info) Description 04/06/2021 Transcribed Document [facility] [address] [address] [facility] [address] [place] [address] Srinivas Melendez MD [address] [facility] [address] [place] [address] Social History Tobacco Use Types [...] Problems PN (peripheral neuropathy) / SNOMED CT 758998658 / Confirmed Neck pain / SNOMED CT 025630759 / Confirmed Hypothyroid / SNOMED CT 15947353 / Confirmed HTN (hypertension) / SNOMED CT 6375904293 / Confirmed HLD (hyperlipidemia) / SNOMED CT 38448815 / Confirmed GERD (gastroesophageal reflux disease) / SNOMED CT 037731334 / Confirmed Depression / SNOMED CT 65478834 / Confirmed Back pain / SNOMED CT 375043181 / Confirmed At risk for sleep apnea / IMO 54062784 / Confirmed Anxiety / SNOMED CT 36449274 / Confirmed, Active Problems (10) Anxiety At [...] RUE weakness, LLE weakness. Integumentary: Warm, Dry, [place]. Neurologic: Alert, Oriented. Psychiatric: Cooperative, Appropriate mood [...]
--- OUTSIDE RECORDS SUMMARY | 2025-06-05 08:42 | XMS_ITS | Encounter Summary ---
Author Organization [employer] ([place], [place], [place], [place]) Address [address] [place] [address] Care Team Providers Care Planting Supervisor Name Role Phone Unavailable Primary Care Provider Unavailabl e Encounter Details Date Type Department Care Team (Late st Contact Info) Description 10/06/2020 Transcribed Document [facility] Family Medicine [facility] [place] [address] ProviderPat MD [address] [place] [address] Social History Tobacco Use [...] - Pat ProviderMD - 10/06/2020 4:28 PM [employer] Patient Education Materials Follows: Outpatient Surgery, Adult, [...] and water are not available, use hand basketball scout. ? Change your dressing as told by [...] or a bad smell. Medicines ??? Take kmqr-lot-baycmjt and prescription medicines only as told by [...] 12/24/2016 Document Revised: 12/02/2018 Document Reviewed: 12/24/2016 [employer] Patient Education ? 2020 [employer]. documented in this encounter Plan of Treatment Not on file documented as of this encounter Visit Diagnoses Not on filedocumented in this encounter
--- OUTSIDE RECORDS SUMMARY | 2025-06-05 08:42 | XMS_ITS | Clinical Summary ---
Author Organization [employer] ([place], [place], [place], [place]) Address [address] [place] [address] Care Team Providers Care Bilingual Spanish Inbound Sales Name Role Phone Unavailable Primary Care Provider [...]
--- OUTSIDE RECORDS SUMMARY | 2025-06-05 08:42 | XMS_ITS | Encounter Summary ---
Author Organization [employer] ([place], [place], [place], [place]) Address [address] [place] [address] Care Team Providers Care Pt Escort Name Role Phone Unavailable Primary Care Provider Unavailabl e Encounter Details Date Type Department Care Team (Late st Contact Info) Description 10/06/2020 Transcribed Document [facility] Family Medicine [facility] [place] [address] ProviderPat MD [facility] [place] [address] Social History Tobacco Use Types [...] - Pat ProviderMD - 10/06/2020 12:27 PM SPECIALTY COOK [facility] Main OR IntraOp Summary Primary Physician: MARION COBOS MD-SNU Finalized Date/Time: 10/07/20 13:51:00 Pt. Name: MELANIE LUNDBERGO.B./Sex: 1965 Female Med Rec #: [id number] Physician: MARION COBOS MD-SNU Financial #: [id number] Pt. Type: O Room/Bed: Admit/Disch: 10/06/20 08:45:00 - 10/06/20 16:43:00 Institution: [facility] IntraOp Case Attendance Entry 1 Entry 2 Entry 3 Case Attendee MARION COBOS WASSON, SANDRA D, RN GULLETTE, NELSON, SCRUB MD-SNU TECH Role Performed Surgeon/Proceduralist, Manager Radio, First Scrub, First First Time In 10/06/20 [...] A, VITO ELIAS MD-ANS Role Performed Physician teacher's assistant HARNESS WORKER/Nurse Manager Internal Anesthesiologist of Record Time In 10/06/20 11:57:00 [...] #1 JEROMY SAINI, RN Robyn Kumar, Diagnostic Ethylene Compressor Operator Role Performed Student Manager Radio, Second Control Clerk Subassembly Time In 10/06/20 11:57:00 10/06/20 11:57:00 10/06/20 [...] Modified By: CLARK JAUREGUI, SAYDA 10/06/20 12:44:32 [facility] IntraOp Case Attendance Audit 10/06/20 13:22:08 Software Requirements Engineer: WASSONSY Modifier: WASSONSY 1 <+> Time Out [...] Procedure Cervical Discectomy Fusion Anterior 10/06/20 12:44:32 Software Requirements Engineer: WASSONSY Modifier: WASSONSY 8 <+> Time Out 8 <*> Procedure Cervical Discectomy Fusion Anterior <+> 9 Case Attendee <+> 9 Role Performed <+> 9 Procedure <+> 10 Case Attendee <+> 10 Role Performed <+> 10 Procedure <+> 10 Other Attendee 10/06/20 12:15:00 Software Requirements Engineer: WASSONSY Modifier: WASSONSY 1 <*> Procedure Cervical [...] Procedure Cervical Discectomy Fusion Anterior 10/06/20 12:14:37 Software Requirements Engineer: WASSONSY Modifier: WASSONSY 1 <+> Time In [...] <+> 8 Role Performed <+> 8 Procedure [facility] IntraOp Case Times Entry 1 Patient In Room Time 10/06/20 11:57:00 Out Room Time 10/06/20 13:18:00 Anesthesia Start Time 10/06/20 11:57:00 Stop Time 10/06/20 13:19:00 Surgery / Procedure Times Start Time 10/06/20 12:27:00 Stop Time 10/06/20 13:12:00 Last Modified By: CLARK JAUREGUI RN 10/06/20 13:13:09 [facility] IntraOp Case Times Audit 10/06/20 13:22:05 Software Requirements Engineer: WASSONSY Modifier: WASSONSY <+> 1 Out Room Time <+> 1 Stop Time 10/06/20 13:13:09 Software Requirements Engineer: WASSONSY Modifier: WASSONSY <+> 1 Stop Time 10/06/20 12:28:55 Software Requirements Engineer: WASSONSY Modifier: WASSONSY <+> 1 Start Time [facility] IntraOp Cautery Entry 1 Entry 2 ESU Identification Cautery Type Monopolar ESU BiPolar ESU Cautery Type Comments ID Number [id number] ID Type Hospital Number Hospital Number Cautery [...] CLARK WATSON RN 10/06/20 12:19:57 10/06/20 12:19:57 [facility] IntraOp Cautery Audit 10/06/20 14:49:40 Software Requirements Engineer: WASSONSY Modifier: WASSONSY 1 <*> Grounding Pad Site Right thigh 10/06/20 12:46:50 Software Requirements Engineer: WASSONSY Modifier: WASSONSY 1 <*> Cautery Type BiPolar ESU 1 <*> Cut Setting 40 1 <*> Bipolar Setting 40 1 <+> Grounding Pad Site 1 <*> ID Number [id number] 1 <*> Grounding Pad Applied By CLARK JAUREGUI RN 2 <*> Cautery Type Monopolar ESU 2 <*> Cut Setting 40 2 <*> ID Number [id number] [facility] IntraOp Communication Entry 1 Communication To Family/Significant other Comment START Communication By JEROMY SAINI RN Date and Time 10/06/20 12:28:00 Last Modified By: CLARK JAUREGUI RN 10/06/20 12:14:46 [facility] IntraOp Communication Audit 10/06/20 12:28:37 Software Requirements Engineer: WASSONSY Modifier: WASSONSY <+> 1 Date and Time [facility] IntraOp Counts Verification Entry 1 Procedure Cervical Discectomy Fusion Anterior Count Info Count Type Sponge, Sharps Counts Verification Baseline/pre-procedure Sequence Count Results Correct, surgeon notified Counts Performed By Count Performed By NELSON NGUYEN SCRUB (Scrub) TECH Count Performed By CLARK JAUREGUI RN (RN) Last Modified By: CLARK JAUREGUI RN 10/06/20 12:46:58 [facility] IntraOp Counts Verification Audit 10/06/20 12:46:58 Software Requirements Engineer: WASSONSY Modifier: WASSONSY 1 <*> Procedure Cervical Discectomy Fusion Anterior 1 <*> Count Performed By (RN) NELSON NGUYEN SCRUB TECH [facility] IntraOp Counts Final Entry 1 Procedure Cervical Discectomy Fusion Anterior Final Count Info Count Type Sponge, Sharps, Miscellaneous Counts Verification Skin Closure/end of Sequence procedure Count Results Correct, surgeon notified Counts Performed By Count Performed By GULLETTE, NELSON, SCRUB (Scrub) TECH Count Performed By CLARK JAUREGUI RN (RN) Last Modified By: CLARK JAUREGUI RN 10/06/20 13:07:53 [facility] IntraOp Departure from OR Entry 1 Integumentary Assessment Integumentary WDL Assessment WDL Transfer/Handoff Transfer to PACU Phase I Handoff Method Bedside/Face to face, Phone call Handoff Reported to Jon Ruth RN Post-op Transport Stretcher/Gurney Via Patient Transport HEBERT GAMBOA, Accompanied by BERNICE BRUCE CRNA Last Modified By: CLARK JAUREGUI RN 10/06/20 12:47:18 [facility] IntraOp Departure from OR Audit 10/06/20 12:47:18 Software Requirements Engineer: HANG Modifier: WASSONSY <+> 1 Patient Transport Accompanied by <+> 1 Handoff Reported to [facility] IntraOp Dressing and Packing Entry 1 Type Dressing Location OP SITE Wound Dressing Item Steristrip, Other Applied By HEBERT GAMBOA Other Comments MASTISOL, STERISTRIPS, COVADERM Last Modified By: CLARK JAUREGUI RN 10/06/20 12:47:50 General Comments: COVERDERM [facility] IntraOp Dressing and Packing Audit 10/06/20 12:47:50 Software Requirements Engineer: HANG Modifier: WASSONSY 1 <*> Location 1 <*> Wound Dressing Item 1 <*> Applied By HEBERT GAMBOA 1 <*> Other Comments [facility] IntraOp Fire Risk Assessment Entry 1 Fire Info Surgical Site or 1- Yes Incision Above the Xyphoid Open O2 Source 0- No (Mask or Cannula) Available Ignition 1- Yes (ESU, Laser, Light Source) Fire Risk 2 Assessment Score Fire Score Fire Risk Yes Assessment Complete Fire Risk CLARK JAUREGUI cane pusher Verified By Fire Risk 10/06/20 11:56:00 Assessment Verified Date/Time Fire Risk Standard Fire Yes Safety Precautions Followed Last Modified By: CLARK JAUREGUI RN 10/06/20 12:15:32 [facility] IntraOp Fire Risk Assessment Audit 10/06/20 12:48:04 Software Requirements Engineer: HANG Modifier: WASSONSY 1 <*> Fire Risk Assessment Verified By JEROMY SAINI RN 1 <*> Fire Risk Assessment Verified 10/06/20 12:15:00 Date/Time 10/06/20 12:28:03 Software Requirements Engineer: WASSONSY Modifier: WASSONSY <+> 1 Fire Risk Assessment Complete [facility] IntraOp General Case Commercial Pest Control Technician 1 Case Information OR OR 11 [facility] Case Level 1 Room Verified Yes Wound Class I - Clean Specialty SN Neurosurgery Anesthesia Type General ASA Class 3 Diagnosis Preop Diagnosis CERVICAL SPONDYLOSIS WITH MYELOPATHY Postop Same As Preop No Postop Diagnosis PLEASE SEE MD NOTES Last Modified By: CLARK JAUREGUI RN 10/06/20 12:16:32 [facility] IntraOp General Case Data Audit 10/06/20 12:16:32 Software Requirements Engineer: HANG Modifier: WASSONSY 1 <*> OR OR 09 [facility] 1 <+> ASA Class 1 <+> Anesthesia Type 1 <+> Postop Same As Preop 1 <+> Postop Diagnosis 1 <+> Room Verified [facility] IntraOp Implant Log Entry 1 Entry 2 Entry 3 Type Tissue Implant Implant (Synthetic) Implant (Synthetic) (Biologic) Implant Log Implant Type Hardware Hardware Tissue Implant Type Bone Implant BONE VIVIGEN FORMABLE CAGE EIT CIF H 5MM 8D CAGE EIT CIF H 5MM 8D Identification [id number] Description Implant Quantity 1 1 1 Implant Site OP SITE OP SITE OP SITE Implant Identification Model Number Implant [id number] Identification Serial Number Implant [id number] Identification Lot Number Implant Lifenet:Lifenet J&J:Depuy:Depuy Spine J&J:Depuy:Depuy Spine Identification Transplant Srv Belt And Link Assembly Supervisor Name: Implant [id number] Identification Catalog Number Implant Size Implant Has an Yes Yes Yes Expiration Date Implant Expiration 09/14/21 11/14/23 11/14/23 Date Wasted Radioactive Material Time Implanted Tissue Implant Continue for Tissue Implant Documentation Tissue Identification Number Graft Prep Per Belt And Link Assembly Supervisor Instructions: Tissue Preparation Method: Reconstitution Solution: Reconstitution Solution Lot Number Reconstitution Solution Expiration Date: Thawing Solution Thawing Solution Lot Number Thawing Solution Expiration Date Preparation Materials, Other Preparation Materials, Other Lot Number Preparation Materials, Other Expiration Date Tissue Prepared/Processed By Belt And Link Assembly Supervisor Paperwork Completed Implant Type Comment Last Modified By: CLARK JAUREGUI RN WASSON, SANDRA D RN CLARK JAUREGUI RN 10/06/20 12:52:08 10/06/20 12:57:34 10/06/20 12:58:46 Entry 4 Entry 5 Type Implant (Synthetic) Implant (Synthetic) Implant Log Implant Type Hardware Hardware Tissue Implant Type Implant PLT ANT SKYLN HYBRD SCR SKYLN VARI SD Identification [id number] Description Implant Quantity 1 6 Implant Site OP SITE OP SITE Implant Identification Model Number Implant Identification Serial Number Implant Identification Lot Number Implant J&J:Depuy:Depuy Spine J&J:Depuy:Depuy Spine Identification Belt And Link Assembly Supervisor Name: Implant [id number] Identification Catalog Number Implant Size Implant Has an Expiration Date Implant Expiration Date Wasted Radioactive Material Time Implanted Tissue Implant Continue for Tissue Implant Documentation Tissue Identification Number Graft Prep Per Belt And Link Assembly Supervisor Instructions: Tissue Preparation Method: Reconstitution Solution: Reconstitution Solution Lot Number Reconstitution Solution Expiration Date: Thawing Solution Thawing Solution Lot Number Thawing Solution Expiration Date Preparation Materials, Other Preparation Materials, Other Lot Number Preparation Materials, Other Expiration Date Tissue Prepared/Processed By Belt And Link Assembly Supervisor Paperwork Completed Implant Type Comment Last Modified By: CLARK JAUREGUI, CLARK WATSON RN 10/06/20 13:13:00 10/06/20 13:13:00 [facility] IntraOp Implant Log Audit 10/06/20 13:13:00 Software Requirements Engineer: WASSONSY Modifier: WASSONSY <+> 4 Implant Identification Description <+> 4 Implant Identification Belt And Link Assembly Supervisor Name: <+> 4 Implant Site <+> 4 Implant Quantity <+> 4 Implant Identification Catalog Number <+> 4 Implant Type <+> 4 Type <+> 5 Implant Identification Description <+> 5 Implant Identification Belt And Link Assembly Supervisor Name: <+> 5 Implant Site <+> 5 Implant Quantity <+> 5 Implant Identification Catalog Number <+> 5 Implant Type <+> 5 Type 10/06/20 12:58:46 Software Requirements Engineer: WASSONSY Modifier: WASSONSY <+> 3 Implant Identification Description <+> 3 Implant Identification Lot Number <+> 3 Implant Identification Belt And Link Assembly Supervisor Name: <+> 3 Implant Expiration Date <+> 3 Implant Site <+> 3 Implant Quantity <+> 3 Implant Identification Catalog Number <+> 3 Implant Type <+> 3 Implant Has an Expiration Date <+> 3 Type 10/06/20 12:57:34 Software Requirements Engineer: WASSONSY Modifier: WASSONSY <+> 2 Implant Identification Description <+> 2 Implant Identification Lot Number <+> 2 Implant Identification Belt And Link Assembly Supervisor Name: <+> 2 Implant Expiration Date <+> 2 Implant Site <+> 2 Implant Quantity <+> 2 Implant Identification Catalog Number <+> 2 Implant Type <+> 2 Implant Has an Expiration Date <+> 2 Type [facility] IntraOp Intraoperative Assessment Entry 1 Handoff [...] Modified By: CLARK JAUREGUI RN 10/06/20 12:48:18 [facility] IntraOp Intraoperative Assessment Audit 10/06/20 12:48:18 Software Requirements Engineer: HANG Modifier: WASSONSY 1 <*> Skin Assessment Verified Yes 1 <*> Handoff Method Bedside/Face to face, Phone call [facility] Intra Intraoperative Equipment Entry 1 Type Equipment Equipment Equipment Kg Suction System ID Number [id number] Setting 180 MM HG Intraop Monitoring Electrocardiogram Five lead placement (ECG) Electrode Placement Blood Pressure Non-Invasive BP Device Source Blood Pressure Arm, left lower Location Pulse Oximeter Hand, right Probe Site Antiembolic Devices Antiembolic Devices Sequential compression device, knee high Antiembolic Device Bilateral Location Antiembolic Device [id number] ID Number Scopes Photo/Video Documentation Photo No Video No Last Modified By: CLARK JAUREGUI RN 10/06/20 12:49:15 [facility] IntraOp Intraoperative Equipment Audit 10/06/20 12:49:15 Software Requirements Engineer: HANG Modifier: WASSONSY <+> 1 Photo <+> 1 Video <+> 1 ID Number <+> 1 Setting <+> 1 Electrocardiogram (ECG) Electrode Placement <+> 1 Blood Pressure Location <+> 1 Pulse Oximeter Probe Site <+> 1 Blood Pressure Source <+> 1 Antiembolic Device ID Number [facility] IntraOp Medication Admin Entry 1 Entry 2 Entry 3 Medication/Irrigant Bacitracin 50,00units lidocaine 1% w/ thrombin 5000units powder vial epinephrine 1:100,000 topical powder - 30ml vial - [id number] Combo Med List Time Administered Route of IRRIGATION LOCAL TOPICAL Administration Dose Dose 86811 10 5000 Unit of Measure units ml units Volume Administered By MARION COBOS, MARION COBOS MD-SNU MD-SNU Procedure Irrigation Irrigant Volume In Irrigant Volume Out Last Modified By: CLARK JAUREGUI, CLARK WATSON RN WASSON, SANDRA D, RN 10/06/20 12:31:00 10/06/20 12:31:00 10/06/20 12:31:00 Entry 4 Medication/Irrigant SPNG SURGFOAM [id number] Combo Med List Time Administered Route of TOPICAL Administration Dose Dose Unit of Measure Volume Administered By MARION COBOS MD-SNU Procedure Irrigation Irrigant Volume In Irrigant Volume Out Last Modified By: CLARK JAUREGUI RN 10/06/20 12:31:00 [facility] IntraOp Patient Positioning Entry 1 Procedure [...] Modified By: CLARK JAUREGUI RN 10/06/20 12:26:54 [facility] IntraOp Patient Positioning Audit 10/06/20 12:50:11 Software Requirements Engineer: WASSONSY Modifier: WASSONSY 1 <*> Procedure Cervical Discectomy Fusion Anterior 1 <*> Positioning Devices Arm Board, Pad, Arm, Pillows [facility] IntraOp Sign In Entry 1 Patient, [...] Modified By: CLARK JAUREGUI RN 10/06/20 12:50:24 [facility] IntraOp Sign In Audit 10/06/20 12:50:24 Software Requirements Engineer: WASTONYSY Modifier: WASSONSY 1 <*> Allergies No 1 <*> Blood Identifiers Verified Per Not applicable Policy [facility] IntraOp Sign Out Entry 1 RN [...] Modified By: CLARK JAUREGUI RN 10/06/20 12:29:20 [facility] IntraOp Sign Out Audit 10/06/20 13:22:22 Software Requirements Engineer: WASTONYSY Modifier: WASSONSY <+> 1 RN Sign Out Signature Date/Time 10/06/20 12:51:21 Software Requirements Engineer: WASSONSY Modifier: WASSONSY 1 <*> Specimen Labeled Correctly Yes 1 <+> RN Sign Out Signature [facility] IntraOp Skin Prep Entry 1 Procedure Cervical Discectomy Fusion Anterior Prescribed Yes Pre-Surgical Prep Completed Prep Area NECK AFTER ALCOHOL AND HIBICLENS PREP PER DR COBOS Intraop Prep Integumentary WDL Assessment WDL Prep Agents Alcohol, Chlorhexadine gluconate, DuraPrep Prep by JEROMY SAINI, RN Hair Removal Methods No hair removal performed Last Modified By: CLARK JAUREGUI RN 10/06/20 12:17:22 [facility] IntraOp Skin Prep Audit 10/06/20 12:51:04 Software Requirements Engineer: WASTONYSY Modifier: WASSONSY 1 <*> Prep Area NECK 1 <*> Procedure Cervical Discectomy Fusion Anterior 1 <*> Prep by MARION COBOS MD-[facility] IntraOp Surgical Procedures Entry 1 Procedure Cervical Discectomy Fusion Anterior Additional (C4-6 ACDF) Procedure Description Primary Procedure Yes Primary Surgeon MARION COBOS MD-SNU Start 10/06/20 12:27:00 Stop 10/06/20 13:12:00 Anesthesia Type General Specialty SN Neurosurgery Wound Class I - Clean Last Modified By: CLARK JAUREGUI RN 10/06/20 12:19:31 [facility] IntraOp Surgical Procedures Audit 10/06/20 13:13:12 Software Requirements Engineer: WASSONSY Modifier: WASSONSY <+> 1 Stop 10/06/20 12:29:03 Software Requirements Engineer: WASSONSY Modifier: WASSONSY <+> 1 Start [facility] IntraOp Temp Regulation Devices Entry 1 Temp Regulation Temperature Forced Air Warming Regulation Device device Temperature [id number] Regulation Device Serial/Unit Number Temperature Lower body Regulation Site Temperature Device 43 C Setting Temperature BERNICE BRUCE CRNA Regulation Device Applied by Last Modified By: CLARK JAUREGUI RN 10/06/20 12:43:51 [facility] IntraOP Time Out Entry 1 Procedure [...] Modified By: CLARK JAUREGUI RN 10/06/20 12:28:49 [facility] IntraOP Time Out Audit 10/06/20 12:28:49 Software Requirements Engineer: WASTONYSY Modifier: WASSONSY 1 <+> Time Out Pause Time 1 <*> Procedure to be Performed Cervical Discectomy Fusion Anterior 10/06/20 12:27:48 Software Requirements Engineer: HANG Modifier: HANG 1 <*> Beta Michelle [...] Performed in location of procedure after prepped/draped [facility] IntraOp X-Ray and Images Entry 1 X-Ray/Imaging Type Fluoroscopy Fluoroscopy Type C-Arm Site OP SITE Engineering Programmer Name Robyn Kumar, Diagnostic Ethylene Compressor Operator Last Modified By: CLARK JAUREGUI RN 10/06/20 12:44:50 Case Comments <None> Finalized By: BO ALEX Document Signatures Signed By: CLARK JAUREGUI RN 10/06/20 14:49 CLARK JAUREGUI RN 10/06/20 13:22 OB ALEX 10/07/20 13:51 Unfinalized History Date/Time Username Reason for Unfinalizing Freetext Reason for Unfinalizing 10/06/20 14:49 HANG Correct Documentation 10/07/20 13:48 TOMAS Correct Billing Electronically signed by Ashwin [facility] Conversion Architectural Intern Cerner at 01/07/2023 7:36 PM CDT documented in this encounter Plan of Treatment Not on file documented as of this encounter Visit Diagnoses Not on filedocumented in this encounter
--- OUTSIDE RECORDS SUMMARY | 2025-06-05 08:42 | XMS_ITS | Encounter Summary ---
Author Organization [employer] ([place], [place], [place], [place]) Address [address] [place] [address] Care Team Providers Care Health Care / Medical Job Titles Name Role Phone Unavailable Primary Care Provider Unavailabl e Encounter Details Date Type Department Care Team (Late st Contact Info) Description 10/06/2020 Transcribed Document [facility] [place] [address] ProviderPat MD [address] [place] [address] Social History Tobacco Use Types [...] - Pat ProviderMD - 10/06/2020 12:27 PM PLANT PROTECTION GUARD [facility] Main OR PostOp Summary Primary Physician: MARION COBOS MD-SNU Finalized Date/Time: 10/06/20 17:50:53 Pt. Name: BUSHRA LUNDBERG D.O.B./Sex: 1965 Female Med Rec #: [id number] Physician: MARION COBOS MD-SNU Financial #: [id number] Pt. Type: O Room/Bed: Admit/Disch: 10/06/20 08:45:00 - Institution: [facility] Main OR PostOp Case Times Entry 1 In PACU II 10/06/20 15:34:00 Ready for PACU II 01/20/21 16:15:00 Discharge Discharge from PACU 10/06/20 16:43:00 II Last Modified By: JAYDA PAUL RN 10/06/20 17:46:19 Finalized By: JAYDA PAUL RN Document Signatures Signed By: JAYDA PAUL RN 10/06/20 17:50 Electronically signed by Ashwin [facility] Conversion Employment Programs Analyst Cerner at 01/07/2023 7:37 PM CDT documented in this encounter Plan of Treatment Not on file documented as of this encounter Visit Diagnoses Not on filedocumented in this encounter
--- OUTSIDE RECORDS SUMMARY | 2025-06-05 08:42 | XMS_ITS | Encounter Summary ---
Author Organization [employer] ([place], [place], [place], [place]) Address [address] [place] [address] Care Team Providers Care Network Support Technician Name Role Phone Unavailable Primary Care Provider Unavailabl e Encounter Details Date Type Department Care Team (Late st Contact Info) Description 10/06/2020 Transcribed Document [facility] [place] [address] [place] [address] ProviderPat MD [address] [place] [address] Social History Tobacco Use Types [...] - Pat ProviderMD - 10/06/2020 4:32 PM CORN CHIP MAKER [facility] [address] BUSHRA LUNDBERG :1965 Visit Time:10/06/2020 What [...] A DAY WHILE ON PAIN MEDICATION [facility] ACDF INSTRUCTIONS Discharge Follow Up Instructions: f/u 4-5 weeks post op with AP/lateral x-rays of the cervical spine. Follow-Up Appointments Follow Up with MARION SIMON When Within 1 month Comments Follow-up as instructed [facility] AT [facility] THEN FOLLOW UP WITH dr simon afterwards Where: [address] (SUNDAY ONLY) [place] [address]- [place] (1) Medications What How Much When Instructions [...] and water are not available, use hand solar maintenance technician. ? Change your dressing as told [...] or a bad smell. Medicines ??? Take xcwu-pez-yjylylv and prescription medicines only as told by [...] 12/24/2016 Document Revised: 12/02/2018 Document Reviewed: 12/24/2016 [employer] Patient Education ?? 2020 [employer] Emergency Awareness and Preventative Care STROKE [...] Assistance with quitting is available by contacting 4-616-CJWP-NOW. This is a free resource providing counseling, [...] was given the opportunity to ask questions. Patient/Java Development Manager Name: Patient/Java Development Manager Signature: Relationship to Patient: Clinician/Hospital Java Development Manager Signature: Date: Electronically signed by Ashwin, [facility] Conversion Corporate Physical Security Supervisor Armen at 01/07/2023 7:29 PM CDT documented in this encounter Plan of Treatment Not on file documented as of this encounter Visit Diagnoses Not on filedocumented in this encounter
--- OUTSIDE RECORDS SUMMARY | 2025-06-05 08:42 | XMS_ITS | Encounter Summary ---
Author Organization [employer] ([place], [place], [place], [place]) Address [address] [place] [address] Care Team Providers Care Ruby On Rails Web Developer Name Role Phone Unavailable Primary Care Provider Unavailabl e Encounter Details Date Type Department Care Team (Late st Contact Info) Description 04/06/2021 Transcribed Document [facility] Family Medicine [facility] [place] [address] ProviderPat MD [address] [place] [address] Social History Tobacco Use Types [...] Ministry Provided to : Patient, Family/Significant other Taoist Preference : Zoroastrian (Disciples of Hernán) ARMIN LAL - 04/06/2021 11:16 EDT Interventions Emotional Support : Empathic/Engaged listening, Family/Significant other supported, Feelings expressed Spiritual and Taoist : Prayer shared, Spiritual/Taoist support provided Change, Adjustment and Loss : Relationships/Community/Support system discussed ARMIN LAL - 04/06/2021 11:16 EDT Outcomes Affect/Behavior Changed : Comforted Appreciation Expressed : Yes Thoughts, Feelings and Emotions Exp. : Yes Supportive Relationships Described : Family, Taoist family HEAD, ARMIN - 04/06/2021 11:16 EDT documented in this encounter Plan of Treatment Not on file documented as of this encounter Visit Diagnoses Not on filedocumented in this encounter
--- OUTSIDE RECORDS SUMMARY | 2025-06-05 08:42 | XMS_ITS | Encounter Summary ---
Author Organization [employer] ([place], [place], [place], [place]) Address [address] [place] [address] Care Team Providers Care Plant Physiology Teacher Name Role Phone Unavailable Primary Care Provider Unavailabl e Encounter Details Date Type Department Care Team (Late st Contact Info) Description 10/05/2020 Transcribed Document [facility] Family Medicine [address] [place] [address] ProviderPat MD [address] [place] [address] Social History Tobacco Use Types [...] - Historical ProviderMD - 10/05/2020 1:54 PM APRICOT WASHER [facility] Authorization Entered On: 10/05/2020 13:54 EST Performed On: 10/05/2020 13:54 EST by REKHA BURNHAM Ladle Handler Primary Insurance Authorization Authorization and Policy Numbers : Insurance 1 Health Plan: [employer] [place] Policy Number: [id number] Authorization Number: Authorization Comments-Primary : pt is bruno for OUT PT Cervical Discectomy Fusion Anterior on Sun10-06-20 Historical Authorization Comments-Primary : No Authorization Comments Found REKHA BURNHAM, Ladle Handler - 10/05/2020 13:54 EST Electronically signed by Ashwin [facility] Conversion Personnel Scheduler Cerner at 01/07/2023 7:37 PM CDT documented in this encounter Plan of Treatment Not on file documented as of this encounter Visit Diagnoses Not on filedocumented in this encounter
--- OUTSIDE RECORDS SUMMARY | 2025-06-05 08:42 | XMS_ITS | Clinical Summary ---
Author Organization Healthcare Address [address] [id number] Care Team Providers Care Wire Strander Name Role Phone Raymond Duarte MD Primary Care Provider [phone] Family History Medical History Relation Name Comments [...] of Treatment Not on file Care Teams Wire Strander Relationship Specialty Start Date End Date Raymond Duarte MD [address] [place] [address] PCP - General 01/28/21
--- OUTSIDE RECORDS SUMMARY | 2025-06-05 08:42 | XMS_ITS | Encounter Summary ---
Author Organization [employer] ([place], [place], [place], [place]) Address [address] [place] [address] Care Team Providers Care Generalist Name Role Phone Unavailable Primary Care Provider Unavailabl e Encounter Details Date Type Department Care Team (Late st Contact Info) Description 04/06/2021 Transcribed Document [facility] Family Medicine [facility] [place] [address] ProviderPat MD [address] [place] [address] Social History Tobacco Use Types [...] - 04/06/2021 11:[address] [facility] Main OR Preop Summary Primary Physician: MARION COBOS MD-SNU Finalized Date/Time: 04/06/21 12:32:08 Pt. Name: BUSHRA LUNDBERG D.O.B./Sex: 1965 Female Med Rec #: [id number] Physician: MARION COBOS MD-SNU Financial #: [id number] Pt. Type: O Room/Bed: ASA/3 Admit/Disch: 04/06/21 06:47:00 - Institution: [facility] PreOp Case Times Entry 1 In Preop 04/06/21 08:53:00 Ready for Holding n/a Room Patient Ready for 04/06/21 10:00:00 Surgery Patient Out of Preop 04/06/21 11:11:00 Patient Out of n/a Holding Room Last Modified By: ANA LORD RN 04/06/21 12:32:01 [facility] PreOp Case Times Audit 04/06/21 12:32:01 Rolling Down Machine Operator: KODAK Modifier: MISTY[place]ATFIELD <+> 1 Patient Out of Preop 04/06/21 10:12:28 Rolling Down Machine Operator: KODAK Modifier: MISTYHATFIELD 1 <*> Patient Ready for Surgery 04/06/21 10:12:00 Finalized By: ANA LORD RN Document Signatures Signed By: ANA LORD RN 04/06/21 12:32 Electronically signed by Ashwin [facility] Conversion Dough Molder Cerner at 01/07/2023 7:30 PM CDT documented in this encounter Plan of Treatment Not on file documented as of this encounter Visit Diagnoses Not on filedocumented in this encounter
--- OUTSIDE RECORDS SUMMARY | 2025-06-05 08:42 | XMS_ITS | Encounter Summary ---
Author Organization [employer] ([place], [place], [place], [place]) Address [address] [place] [address] Care Team Providers Care Physician Practice Coordinator Name Role Phone Unavailable Primary Care Provider Unavailabl e Encounter Details Date Type Department Care Team (Late st Contact Info) Description 10/06/2020 Transcribed Document [facility] Neurology - [address] [facility] [address] [place] [address] Srinivas Melendez MD [address] [facility] [address] [place] [address] Social History Tobacco Use Types [...] Problems PN (peripheral neuropathy) / SNOMED CT 333653428 / Confirmed Neck pain / SNOMED CT 869536238 / Confirmed Hypothyroid / SNOMED CT 71911336 / Confirmed HTN (hypertension) / SNOMED CT 5314971209 / Confirmed HLD (hyperlipidemia) / SNOMED CT 42691242 / Confirmed GERD (gastroesophageal reflux disease) / SNOMED CT 156088301 / Confirmed Depression / SNOMED CT 19565689 / Confirmed Back pain / SNOMED CT 416061887 / Confirmed At risk for sleep apnea / IMO 82775286 / Confirmed Anxiety / SNOMED CT 17553083 / Confirmed, Active Problems (10) Anxiety At [...] EST Height Source Measured Height Entry Format [place] Height/Length, IRISH (ft) 5 ft Height/Length IRISH 3 Inch CLINICALHEIGHT 160.02 cm [place] Body Weight 52 kg Weight Source Standing scale Weight Entry Format [place] Weight Indonesian lb 244 lb CLINICALWEIGHT 110.91 kg Body [...] ROM neck, RUE weakness. Integumentary: Warm, Dry, [place]. Neurologic: Alert, Oriented. Psychiatric: Cooperative, Appropriate mood & affect. Review / Management Results review: No qualifying data available. Impression and Plan Condition: Stable. documented in this encounter Plan of Treatment Not on file documented as of this encounter Visit Diagnoses Not on filedocumented in this encounter
--- OUTSIDE RECORDS SUMMARY | 2025-06-05 08:42 | XMS_ITS | Encounter Summary ---
Author Organization [employer] ([place], [place], [place], [place]) Address [address] [place] [address] Care Team Providers Care Window Shade Cutter Name Role Phone Unavailable Primary Care Provider Unavailabl e Encounter Details Date Type Department Care Team (Late st Contact Info) Description 04/06/2021 Transcribed Document [facility] [place] [address] [place] [address] ProviderPat MD [address] [place] [address] Social History Tobacco Use Types [...] Pat ProviderMD - 04/06/2021 2:13 PM CDT [facility] [place] [address] BUSHRA ABDI :1965 Visit Time:04/06/2021 [...] Comments Follow-up appointment at 9:15am Where: [address] (SUNDAY ONLY) [place] [address]- Medications What How Much When Instructions Next [...] activities are safe for you. ??? Take aehr-ayc-mbqramu and prescription medicines only as told by [...] provider. Document Revised: 09/06/2018 Document Reviewed: 04/19/2018 [employer] Patient Education ?? 2020 [employer] Anterior Cervical Diskectomy and Fusion, Care [...] and water are not available, use hand project technician. ? Change your dressing as told [...] Managing pain, stiffness, and swelling ??? Take kurc-zhq-vmlkmge and prescription medicines only as told by [...] keep your urine pale yellow. ? Take xchn-qab-vblazue or prescription medicines. ? Eat foods that [...] provider. Document Revised: 05/29/2019 Document Reviewed: 05/29/2019 [employer] Patient Education ?? 2020 [employer]. Emergency Awareness and Preventative Care STROKE is [...] Assistance with quitting is available by contacting 8-302-IOVR-NOW. This is a free resource providing counseling, [...] ) Urine Bilirubin Dipstick: Negative Urine Specific [place]: 1.012 -- Normal range between ( 1.005 [...] was given the opportunity to ask questions. Patient/Application Defense Manager Name: Patient/Application Defense Manager Signature: Relationship to Patient: Clinician/Hospital Application Defense Manager Signature: Date: Electronically signed by Interface, [facility] Conversion Substitute Crossing Guard Armen at 01/07/2023 7:35 PM CDT documented in this encounter Plan of Treatment Not on file documented as of this encounter Visit Diagnoses Not on filedocumented in this encounter
[2025-06-05 10:42] LABS: 25-OH Vitamin D, Total 45.0 ng/mL (30-100)
[2025-06-05 10:43] LABS: Free T4 (Free Thyroxine) 1.55 ng/dl (0.78-2.19)
[2025-06-05 10:55] LABS: Thyroid Stimulating Hormone 4.76 uIU/mL (0.465-4.68)
[2025-06-06 10:16] LABS: FSH 56.3 mIU/mL (.); LH 26.8 mIU/mL (.)
== END 2025-06-05 23:59 | disposition home or self-care (01) ==
LOC: LAB 08:38
PROVIDERS: PCP Internal Medicine; Visit Provider Student in an Organized Health Care Education/Training Program
DX: E55.9 Vitamin D deficiency, unspecified (principal); L68.0 Hirsutism; E06.3 Autoimmune thyroiditis
CPT/HCPCS: 36415; 82306; 82627; 82670; 83001; 83002; 84270; 84402; 84403; 84439; 84443

== ENCOUNTER 2025-08-05 10:52 | Day surgery (SDC) | payer MEDICAID, SELFPAY ==
--- NOTE | 2025-07-31 12:02 | EXP.HP ---
History of Present Illness *Admission Date: 08/05/25 *History of present illness: Mrs. Lundberg is a 60-year-old female who is here for screening colonoscopy. The patient did have attempted colonoscopy on 06/01/2025 but had inadequate bowel preparation and the procedure was aborted. The patient does report a lot of gassiness, some bloating and loose stools in the morning. The patient reports no rectal bleeding, unintentional weight loss or family history of colon cancer. The patient had been arranged for colonoscopy on 2 prior occasions this year but canceled. The patient's last colonoscopy was many years ago (between 2009 and 2012) and states that the single polyp was removed. She had been sent to Pete De Leon M.D. for colonoscopy in October 2019 but this does not appear to have been done. The patient recently has had an upper endoscopy in [place] because of possible H. pylori. The patient has undergone prior gastric sleeve and then second surgery for Julio Cesar-en-Y gastric bypass. She did have an upper GI series in [place]. The examination is deemed medically necessary for screening colonoscopy. [facility] Disclaimer: The information contained in this section may have been updated after the patient was seen, as this information can be updated by other users. Medical History Hypokalemia Thyroid nodule History of ulcer disease History of hyperlipidemia History of emphysema History of anxiety History of depression History of coronary artery disease Abnormal findings on diagnostic imaging of heart and coronary circulation Abnormal nuclear cardiac imaging test Obesity Pulmonary emphysema Dyspnea on exertion Lung nodule Thyroiditis Diastolic dysfunction Thyroid disease History of gastroesophageal reflux (GERD) Atypical chest pain Bigeminy PAC (premature atrial contraction) Generalized anxiety disorder Recurrent major depression resistant to treatment Dysphagia An EGD was done. Noted that her gastric sleeve was somewhat expanded. She also had dilatation done on her esophagus. Recommended repeat in approximately 3 years. Thyroiditis She also has hypothyroidism likely related to this. With her elevated TSH, I am going to increase her levothyroxine dose and recheck her levels. Metabolic syndrome Pre-diabetes Bilateral foot pain Abnormal weight Urinary incontinence Vitamin D deficiency Resolved Hypothyroidism Low back pain Knee pain Hyperlipidemia Hypertension Surgical History History of hysterectomy Status post gastric banding surgery 11/6/18 Family History Other Anxiety Coronary artery disease Depression Diabetes Hypertension No significant family history Obesity Social History Smoking Status: Former smoker smoking status stop date: November 2024 second hand exposure: No alcohol intake: never substance use type: denies use current occupational status: unemployed Travel in the last 8 weeks?: None household members: spouse housing: house number of children: 2 current occupational exposures/hazards: No caffeine: No Have you lived/traveled outside US in past 30 days?: No Contact w/someone who lives/traveled outside US past 30 days?: No Exposure to someone with infectious disease in past 14 days?: No Do you have a fever (greater than 100.4 F or 38 C)?: No Have you tested positive for COVID-19?: No Exposed to someone with COVID-19 in past 14 days?: No Do you have a sore throat?: No Do you have a cough?: No Do you have any weakness?: No Do you have any diarrhea?: No Are you experiencing any unusual bleeding?: No Do you have any muscle aches/pain?: No Do you have any abdominal pain?: No Are you experiencing loss of taste or smell?: No Other Medical History Have you received the Flu Vaccine for this season: No Have you received the Pneumonia Vaccine: No Review of Systems Review of Systems Review of systems (narrative): Negative *Cardiovascular Comments: Negative *Gastrointestinal Comments: Negative *Genitourinary Comments: Negative *Musculoskeletal Comments: Negative *Neurologic Comments: Negative Meds Home Medications and Allergies Home Medications ?Medication ?Instructions ?Recorded ?Confirmed ?Type ergocalciferol (vitamin D2) 1,250 See Rx Instructions .Route 12/28/23 08/05/25 Rx mcg (50,000 unit) capsule .COMPLEX #14 caps lisinopril 10 mg tablet 10 mg PO DAILY 90 days #90 tabs 10/28/24 08/04/25 Rx bupropion HCl 150 mg 24 hr tablet, 150 mg PO DAILY 11/07/24 08/05/25 History extended release buspirone 10 mg tablet 10 mg PO TID PRN N/A 01/23/25 08/05/25 History levothyroxine 200 mcg capsule 200 mcg PO DAILY #30 caps 02/24/25 08/05/25 Rx amitriptyline 25 mg tablet 25 mg PO DAILY N/A 03/19/25 08/05/25 History cholecalciferol (vitamin D3) 1,250 1,250 mcg PO DIRECTED SUPPLIMENT 03/19/25 08/05/25 History mcg (50,000 unit) capsule furosemide 40 mg tablet 20 mg PO DAILY 04/16/25 08/05/25 History spironolactone 25 mg tablet 25 mg PO DAILY 04/16/25 08/05/25 History duloxetine 30 mg capsule,delayed 30 mg PO DAILY #30 caps 04/29/25 08/05/25 Rx release duloxetine 60 mg capsule,delayed 60 mg PO DAILY #90 caps 04/29/25 08/05/25 Rx release albuterol sulfate 90 mcg/actuation 2 puff inhalation NEEDED PRN 05/12/25 07/20/25 History aerosol inhaler Shortness Of Breath levothyroxine 25 mcg tablet 25 mcg PO DAILY 05/27/25 08/05/25 History vonoprazan 20 mg tablet (Voquezna) 20 mg PO DAILY 05/27/25 07/20/25 History atorvastatin 10 mg tablet See Rx Instructions .Route 07/06/25 08/05/25 Rx .COMPLEX #30 tabs aspirin 81 mg tablet,delayed 81 mg PO DAILY #30 tabs 07/08/25 08/05/25 Rx release (Adult Low Dose Aspirin) cariprazine 3 mg capsule (Vraylar) See Rx Instructions .Route 07/08/25 08/05/25 Rx .COMPLEX #30 caps ropinirole 0.25 mg tablet 0.25 mg PO HS #30 tabs 07/15/25 07/20/25 Rx budesonide-formoterol HFA 160 2 puff inhalation BID #10.2 grams 07/16/25 08/05/25 Rx mcg-4.5 mcg/actuation aerosol inhaler (Symbicort) gabapentin enacarbil 600 mg 600 mg PO BID #60 tabs 07/16/25 08/05/25 Rx tablet,extended release (Horizant ER) oxybutynin chloride 10 mg See Rx Instructions .Route 07/16/25 08/05/25 Rx tablet,extended release 24 hr .COMPLEX #30 tabs tirzepatide (weight loss) 2.5 2.5 mg (0.5 mL) SQ WEEKLY MATEO, BMI 07/16/25 08/05/25 Rx mg/0.5 mL subcutaneous pen 46 #2 mL injector (Zepbound) New Prescriptions to Start Prescriptions: Allergies Allergy/AdvReac Type Severity Reaction Status Date / Time adhesive tape Allergy Rash Verified 08/04/25 11:03 Exam *Routine HEENT Exam Head: Present normocephalic Eye: Present EOMI and PERRL ENT: Present mucous membranes moist *Routine Neck Exam Neck: Present supple *Routine Respiratory Exam Respiratory: Present CTA bilaterally *Routine Cardiovascular Exam Cardiovascular: Present RRR *Routine Abdominal Exam Abdominal: Present soft and normoactive bowel sounds; Absent tenderness *Routine Rectal Exam Rectal:: deferred *Routine Genitalia Exam Genitalia:: deferred *Routine Extremities Exam Extremities: Absent cyanosis, clubbing or edema *Routine Skin Exam Skin: Present warm; Absent rash *Routine Neurological Exam Neurological: Present alert and oriented X3 Assessment and Plan *Assessment and plan (1) Screening for colon cancer: Status: Acute Category: Medical Code(s): Z12.11 - Encounter for screening for malignant neoplasm of colon (2) Personal history of colon polyps, unspecified: Status: Acute Category: Medical Code(s): Z86.0100 - Personal history of colon polyps, unspecified Plan A/P: 1. Personal history of colon polyps is the preprocedural diagnosis. The patient will be anesthetized/sedated using MAC sedation. The patient has been seen and examined. Cardiac and lung assessment prior to the examination is stable. Proceed with planned screening colonoscopy.
[2025-08-04 11:08] VITALS: BMI 42.7
--- NOTE | 2025-08-05 06:58 | P.PCN_ITS ---
[facility] Procedure Note Date: 08/05/25 Time: 13:16 Procedure Note:: Colonoscopy Procedure Report: Colonoscopy with cold biopsies Endoscopist: Breezy Bran II, MD Referring physician: Srinivas Lamb DO Date of Procedure: August 05, 2025 Equipment: Olympus [id number] adult colonoscope Sedation: MAC sedation Indication: Mrs. Lundberg is a 60-year-old female who is here for screening colonoscopy. The patient did have attempted colonoscopy on 06/01/2025 but had inadequate bowel preparation and the procedure was aborted. This time, she does feel that the preparation will be much improved. The patient does report a lot of gassiness, some bloating and loose stools in the morning. The patient reports no rectal bleeding, unintentional weight loss or family history of colon cancer. The patient had been arranged for colonoscopy on 2 prior occasions this year but canceled. The patient's last colonoscopy was many years ago (between 2009 and 2012) and states that the single polyp was removed. She had been sent to Pete De Leon M.D. for colonoscopy in October 2019 but this does not appear to have been done. The patient recently has had an upper endoscopy in [place] because of possible H. pylori. The patient has undergone prior gastric sleeve and then second surgery for Julio Cesar-en-Y gastric bypass. She did have an upper GI series in [place]. Procedure: Prior to the procedure, a history and physical exam was performed, and patient's medications and allergies were reviewed. The risks, benefits and alternatives of the sedation and procedure were discussed with the patient. All questions were answered and informed consent was obtained. The patient was brought to the procedure room. Patient identification and proposed procedure were verified by the physician and the nurse. The patient was placed in a left lateral decubitus position and the scope was passed under direct vision. Throughout the procedure, the patient's blood pressure, pulse, and oxygen saturations were monitored continuously. The colonoscopy was accomplished without difficulty. The patient tolerated the procedure well. Findings: On digital rectal examination there was normal rectal tone. There were no external hemorrhoids. The colonoscope was introduced through the anal canal to the rectum and advanced to the cecum. The ileocecal valve and appendiceal orifice were identified. The scope was advanced a short distance into the ileum which appeared grossly normal. The scope was then withdrawn into the colon. The cecum, ascending, transverse, descending, sigmoid and rectum were grossly normal. There was a 2.2 cm submucosal lipoma in the sigmoid colon and deeper well biopsies were obtained. There were no other mucosal abnormalities identified. Upon retroflexion within the rectum there were grade 1-2 internal hemorrhoids. The preparation was fair throughout with Speculator Preparation Score of 6-7 out of 9. The cecal time was 12 minutes. Impression: 1. Sigmoid lipoma (2.2 cm) otherwise normal colonoscopy with intubation of the terminal ileum Plan: The patient will not require screening/surveillance colonoscopy again for 10 years by ACS guidelines. This colonic lipoma is a deposit of fatty tissue underneath the surface of the bowel wall and these are not infrequently found. The lipoma should not cause any symptoms or have any potential for malignancy.
[2025-08-05 11:22] VITALS: BP 159/83; PULSE 71; RESP 16; TEMP 36.2; O2SAT 96
[2025-08-05] MEDS: LACTATED RINGERS 1000ML 1,000 ML 50 ML IV (11:27)
--- NOTE | 2025-08-05 11:44 | EXP.ANES.CKL ---
[facility] Disclaimer: The information contained in this section may have been updated after the patient was seen, as this information can be updated by other users. Medical History Hypokalemia Thyroid nodule History of ulcer disease History of hyperlipidemia History of emphysema History of anxiety History of depression History of coronary artery disease Abnormal findings on diagnostic imaging of heart and coronary circulation Abnormal nuclear cardiac imaging test Obesity Pulmonary emphysema Dyspnea on exertion Lung nodule Thyroiditis Diastolic dysfunction Thyroid disease History of gastroesophageal reflux (GERD) Atypical chest pain Bigeminy PAC (premature atrial contraction) Generalized anxiety disorder Recurrent major depression resistant to treatment Dysphagia An EGD was done. Noted that her gastric sleeve was somewhat expanded. She also had dilatation done on her esophagus. Recommended repeat in approximately 3 years. Thyroiditis She also has hypothyroidism likely related to this. With her elevated TSH, I am going to increase her levothyroxine dose and recheck her levels. Metabolic syndrome Pre-diabetes Bilateral foot pain Abnormal weight Urinary incontinence Vitamin D deficiency Resolved Hypothyroidism Low back pain Knee pain Hyperlipidemia Hypertension Surgical History History of hysterectomy Status post gastric banding surgery 07/23/18 Family History Other Anxiety Coronary artery disease Depression Diabetes Hypertension No significant family history Obesity Social History Smoking Status: Former smoker smoking status stop date: November 2024 second hand exposure: No alcohol intake: never substance use type: denies use current occupational status: unemployed Travel in the last 8 weeks?: None household members: spouse housing: house number of children: 2 current occupational exposures/hazards: No caffeine: No Have you lived/traveled outside US in past 30 days?: No Contact w/someone who lives/traveled outside US past 30 days?: No Exposure to someone with infectious disease in past 14 days?: No Do you have a fever (greater than 100.4 F or 38 C)?: No Have you tested positive for COVID-19?: No Exposed to someone with COVID-19 in past 14 days?: No Do you have a sore throat?: No Do you have a cough?: No Do you have any weakness?: No Do you have any diarrhea?: No Are you experiencing any unusual bleeding?: No Do you have any muscle aches/pain?: No Do you have any abdominal pain?: No Are you experiencing loss of taste or smell?: No [facility] Anesthesia Checklist Patient Identification Patient Identification: Arm Band and Verbal (Name & ) Structural Data Admitted From: Home Planned Operative Procedure/s: Colonoscopy Consent for Planned Operative Procedure(s) Verified: Yes Verified Documents: Surgical Consent NPO Status Verified Time NPO: 00:00 Additional verifications Anesthesia Reactions: No Hx Blood Transfusions: No Blood Transfusion Reaction: No Airway Assessment Mallampati Score:: Class II C-Spine Mobility Assessed: Yes TMJ Mobility Assessed: Yes Dentition: Dentures-good fit Neurological Assessment Level of Consciousness: Awake, Alert and Appropriate Hx Seizures: No Numbness or tingling in extremities: No Anesthesia Plan Anesthesia Risk discussed: Yes Anesthesia Plan: Verified ASA Class: III Anesthesia Type: MAC
[2025-08-05 13:18] VITALS: BP 102/59; PULSE 58; RESP 16; TEMP 36.2; O2SAT 96
[2025-08-05 13:28] VITALS: BP 147/58; PULSE 60; RESP 18; TEMP 36.2; O2SAT 97
[2025-08-05 13:38] VITALS: BP 148/60; PULSE 62; RESP 16; TEMP 36.2; O2SAT 97
[2025-08-05 13:48] VITALS: BP 152/62; PULSE 60; RESP 16; TEMP 36.2; O2SAT 97
== END 2025-08-05 13:48 | disposition home or self-care (01) ==
PROVIDERS: PCP Internal Medicine; Visit Provider Internal Medicine Gastroenterology
PROC: 0DJD8ZZ Inspection of Lower Intestinal Tract, Via Natural or Artificial Opening Endoscopic (ICD-10-PCS; CPT 45378; principal; 2025-08-05 12:30)
DX: Z12.11 Encounter for screening for malignant neoplasm of colon (principal); Z86.0100 Personal history of colon polyps, unspecified; I25.10 Atherosclerotic heart disease of native coronary artery without angina pectoris; F41.9 Anxiety disorder, unspecified; F32.A Depression, unspecified; K21.9 Gastro-esophageal reflux disease without esophagitis; E78.5 Hyperlipidemia, unspecified; I10 Essential (primary) hypertension; E66.9 Obesity, unspecified; Z68.41 Body mass index [BMI] 40.0-44.9, adult; E03.9 Hypothyroidism, unspecified; Z90.710 Acquired absence of both cervix and uterus; Z82.49 Family history of ischemic heart disease and other diseases of the circulatory system; Z83.3 Family history of diabetes mellitus; Z56.0 Unemployment, unspecified; Z91.048 Other nonmedicinal substance allergy status; Z79.899 Other long term (current) drug therapy; Z79.82 Long term (current) use of aspirin; Z79.890 Hormone replacement therapy; Z87.891 Personal history of nicotine dependence
CPT/HCPCS: 45380; J2003; J2704; J7120

== ENCOUNTER 2025-08-07 14:32 | Outpatient (CLI) | payer MEDICAID, SELFPAY ==
--- OUTSIDE RECORDS SUMMARY | 2025-08-07 14:34 | XMS_ITS | Encounter Summary ---
Author Organization [employer] ([place], [place], [place], [place], [place]) Address [address] [place] [address] Care Team Providers Care Brownfield Redevelopment Specialist Name Role Phone Unavailable Primary Care Provider Unavailabl e Encounter Details Date Type Department Care Team (Late st Contact Info) Description 10/06/[address] [facility] [address] [facility] [address] [place] [address] Srinivas Melendez MD [address] [facility] [address] [place] [address] Social History Tobacco Use Types [...] Problems PN (peripheral neuropathy) / SNOMED CT 037714203 / Confirmed Neck pain / SNOMED CT 522937685 / Confirmed Hypothyroid / SNOMED CT 72590120 / Confirmed HTN (hypertension) / SNOMED CT 9136162498 / Confirmed HLD (hyperlipidemia) / SNOMED CT 85803221 / Confirmed GERD (gastroesophageal reflux disease) / SNOMED CT 065164419 / Confirmed Depression / SNOMED CT 20310761 / Confirmed Back pain / SNOMED CT 494521990 / Confirmed At risk for sleep apnea / IMO 80677088 / Confirmed Anxiety / SNOMED CT 78788353 / Confirmed, Active Problems (10) Anxiety At [...] EST Height Source Measured Height Entry Format [place] Height/Length, PASHTO (ft) 5 ft Height/Length PASHTO 3 Inch CLINICALHEIGHT 160.02 cm [place] Body Weight 52 kg Weight Source Standing scale Weight Entry Format [place] Weight [place] lb 244 lb CLINICALWEIGHT 110.91 kg Body [...] ROM neck, RUE weakness. Integumentary: Warm, Dry, [place]. Neurologic: Alert, Oriented. Psychiatric: Cooperative, Appropriate mood & affect. Review / Management Results review: No qualifying data available. Impression and Plan Condition: Stable. documented in this encounter Plan of Treatment Not on file documented as of this encounter Visit Diagnoses Not on filedocumented in this encounter
--- OUTSIDE RECORDS SUMMARY | 2025-08-07 14:34 | XMS_ITS | Encounter Summary ---
Author Organization [employer] ([place], [place], [place], [place], [place]) Address [address] [place] [address] Care Team Providers Care Director Life Insurance Name Role Phone Unavailable Primary Care Provider Unavailabl e Encounter Details Date Type Department Care Team (Late st Contact Info) Description 04/06/2021 Transcribed Document [facility] [place] [facility] [place] [address] ProviderPat MD [address] [place] [address] Social History Tobacco Use Types [...] and water are not available, use hand export packer. ? Change your dressing as told by [...] Managing pain, stiffness, and swelling ??? Take jmgz-sso-gjmxsrr and prescription medicines only as told by [...] keep your urine pale yellow. ? Take mrcv-fqb-hutjcyi or prescription medicines. ? Eat foods that [...] provider. Document Revised: 05/29/2019 Document Reviewed: 05/29/2019 [employer] Patient Education ? 2020 [employer] Pharmacology General Anesthesia, Adult, Care After [...] activities are safe for you. ??? Take euex-ksq-dotovvd and prescription medicines only as told by [...] provider. Document Revised: 09/06/2018 Document Reviewed: 04/19/2018 [employer] Patient Education ? 2020 [employer] Electronically signed by Monroe Christopher Conversion Counterintelligence Specialist Stacyner at 01/07/2023 7:37 PM CDT documented in this encounter Plan of Treatment Not on file documented as of this encounter Visit Diagnoses Not on filedocumented in this encounter
--- OUTSIDE RECORDS SUMMARY | 2025-08-07 14:34 | XMS_ITS | Encounter Summary ---
Author Organization [employer] ([place], [place], [place], [place], [place]) Address [address] [place] [address] Care Team Providers Care Dirt Bike Mechanic Name Role Phone Unavailable Primary Care Provider Unavailabl e Encounter Details Date Type Department Care Team (Late st Contact Info) Description 04/06/2021 Transcribed Document [facility] [place] [facility] [place] [address] ProviderPat MD [address] [place] [address] Social History Tobacco Use Types [...] ProviderMD - 04/06/2021 11:42 AM CDT [facility] Main OR PostOp Summary Primary Physician: MARION COBOS MD-SNU Finalized Date/Time: 04/07/21 13:01:30 Pt. Name: BUSRHA LUNDBERG D.O.B./Sex: 1965 Female Med Rec #: [id number] Physician: MARION COBOS MD-MIKO Financial #: [id number] Pt. Type: O Room/Bed: ASA/3 Admit/Disch: 04/06/21 06:47:00 - 04/06/21 15:30:00 Institution: [facility] Main OR PostOp Case Times Entry [...] Billing Electronically signed by Monroe Christopher Conversion Electronics Maintenance Technician Cerner at 01/07/2023 7:36 PM CDT documented in this encounter Plan of Treatment Not on file documented as of this encounter Visit Diagnoses Not on filedocumented in this encounter
--- OUTSIDE RECORDS SUMMARY | 2025-08-07 14:34 | XMS_ITS | Encounter Summary ---
Author Organization [employer] ([place], [place], [place], [place], [place]) Address [address] [place] [address] Care Team Providers Care Electrical Logging Engineer Name Role Phone Unavailable Primary Care Provider Unavailabl e Encounter Details Date Type Department Care Team (Late st Contact Info) Description 10/06/2020 Transcribed Document [facility] [place] Family Medicine [facility] [place] [address] ProviderPat MD [address] [place] [address] Social History Tobacco Use Types [...] - Pat ProviderMD - 10/06/2020 12:27 PM MANAGER [facility] Main OR PostOp Summary Primary Physician: MARION COBOS MD-SNU Finalized Date/Time: 10/06/20 17:50:53 Pt. Name: BUSHRA LUNDBERG D.O.B./Sex: 1965 Female Med Rec #: [id number] Physician: MARION COBOS MD-MIKO Financial #: [id number] Pt. Type: O Room/Bed: Admit/Disch: 10/06/20 08:45:00 - Institution: [facility] Main OR PostOp Case Times Entry 1 In PACU II 10/06/20 15:34:00 Ready for PACU II 10/06/20 16:15:00 Discharge Discharge from PACU 10/06/20 16:43:00 II Last Modified By: JAYDA PAUL RN 10/06/20 17:46:19 Finalized By: JAYDA PAUL, SAYDA Document Signatures Signed By: JAYDA PAUL RN 10/06/20 17:50 Electronically signed by Ashwin [facility] Conversion Roll On Worker Cerner at 01/07/2023 7:37 PM CDT documented in this encounter Plan of Treatment Not on file documented as of this encounter Visit Diagnoses Not on filedocumented in this encounter
--- OUTSIDE RECORDS SUMMARY | 2025-08-07 14:34 | XMS_ITS | Referral Summary ---
Author Organization [employer] ([place], [place], [place], [place], [place]) Address [address] [place] [address] Care Team Providers Care Ambulance Driver Paramedic Name Role Phone Unavailable Primary Care Provider [...]
--- OUTSIDE RECORDS SUMMARY | 2025-08-07 14:35 | XMS_ITS | Encounter Summary ---
Author Organization [employer] ([place], [place], [place], [place], [place]) Address [address] [place] [address] Care Team Providers Care Psychological Tests Sales Agent Name Role Phone Unavailable Primary Care Provider Unavailabl e Encounter Details Date Type Department Care Team (Late st Contact Info) Description 10/06/2020 Transcribed Document [facility] [place] Family Medicine [facility] [place] [address] ProviderPat MD [address] [place] [address] Social History Tobacco Use Types [...] - Pat ProviderMD - 10/06/2020 12:27 PM CLIENT ANALYST [facility] Main OR PACU Summary Primary Physician: MARION COBOS MD-SNRqauel Finalized Date/Time: 10/06/20 15:35:11 Pt. Name: BUSHRA LUNDBERG D.O.B./Sex: 1965 Female Med Rec #: [id number] Physician: MARION COBOS MD-SNU Financial #: [id number] Pt. Type: O Room/Bed: Admit/Disch: 10/06/20 08:45:00 - Institution: [facility] Main OR PACU I Case Times Entry 1 In PACU I 10/06/20 13:20:00 Ready for PACU 10/06/20 14:25:00 Discharge Discharge from PACU 10/06/20 15:25:00 I Last Modified By: CINDY AGUIRRE RN 10/06/20 15:34:39 [facility] Main OR PACU Acuity Entry 1 Start Time 10/06/20 14:25:00 Stop Time 10/06/20 15:25:00 Acuity Level [facility] PACU Acuity I Last Modified By: CINDY AGUIRRE RN 10/06/20 15:35:08 Finalized By: CINDY AGUIRRE, RN Document Signatures Signed By: CINDY AGUIRRE RN 10/06/20 15:35 Electronically signed by Ashwin [facility] Conversion Supervisor Baking Cerner at 01/07/2023 7:31 PM CDT documented in this encounter Plan of Treatment Not on file documented as of this encounter Visit Diagnoses Not on filedocumented in this encounter
--- OUTSIDE RECORDS SUMMARY | 2025-08-07 14:35 | XMS_ITS | Clinical Summary ---
Author Organization Healthcare Address [address] [id number] Care Team Providers Care Sole Conditioner Name Role Phone Raymond Duarte MD Primary Care Provider [phone] Family History Medical History Relation Name Comments [...] of Treatment Not on file Care Teams Sole Conditioner Relationship Specialty Start Date End Date Raymond Duarte MD [address] [place] [address] PCP - General 01/28/21
--- OUTSIDE RECORDS SUMMARY | 2025-08-07 14:35 | XMS_ITS | Encounter Summary ---
Author Organization [employer] ([place], [place], [place], [place], [place]) Address [address] [place] [address] Care Team Providers Care Traffic Signal Mechanic Name Role Phone Unavailable Primary Care Provider Unavailabl e Encounter Details Date Type Department Care Team (Late st Contact Info) Description 04/06/2021 Transcribed Document [facility] [place] Family Medicine Replaced by [facility] [place] [address] ProviderPat MD [address] [place] [address] Social History Tobacco Use Types [...] Ministry Provided to : Patient, Family/Significant other Evangelical Preference : Quaker ([employer]) ARMIN LAL - 04/06/2021 11:16 EDT Interventions Emotional Support : Empathic/Engaged listening, Family/Significant other supported, Feelings expressed Spiritual and Evangelical : Prayer shared, Spiritual/Evangelical support provided Change, Adjustment and Loss : Relationships/Community/Support system discussed ARMIN LAL - 04/06/2021 11:16 EDT Outcomes Affect/Behavior Changed : Comforted Appreciation Expressed : Yes Thoughts, Feelings and Emotions Exp. : Yes Supportive Relationships Described : Family, Synagogue family HEAD, ARMIN - 04/06/2021 11:16 EDT Electronically signed by Monroe Christopher Conversion Forest Law And Policy Professor Cerner at 01/07/2023 7:35 PM CDT documented in this encounter Plan of Treatment Not on file documented as of this encounter Visit Diagnoses Not on filedocumented in this encounter
--- OUTSIDE RECORDS SUMMARY | 2025-08-07 14:35 | XMS_ITS | Encounter Summary ---
Author Organization [employer] ([place], [place], [place], [place], [place]) Address [address] [place] [address] Care Team Providers Care Cook Mayonnaise Name Role Phone Unavailable Primary Care Provider Unavailabl e Encounter Details Date Type Department Care Team (Late st Contact Info) Description 04/06/2021 Transcribed Document [facility] Family Medicine [facility] [place] [address] ProviderPat MD [address] [place] [address] Social History Tobacco Use Types [...] Pat ProviderMD - 04/06/2021 11:42 AM CDT [facility] Main OR IntraOp Summary Primary Physician: MARION COBOS MD-SNU Finalized Date/Time: 04/07/21 13:03:57 Pt. Name: MELANIE LUNDBERG D.O.B./Sex: 1965 Female Med Rec #: [id number] Physician: MARION COBOS MD-SNU Financial #: [id number] Pt. Type: O Room/Bed: ASA/3 Admit/Disch: 04/06/21 06:47:00 - 04/06/21 15:30:00 Institution: [facility] IntraOp Case Attendance Entry 1 Entry 2 Entry 3 Case Attendee MARION COBOS WASSON, SANDRA D, RN NELSON NGUYEN, MADELEINE NEGRETE-SNU TECH Role Performed Surgeon/Proceduralist, Advisor Advocate Angel Co Founder, First Scrub, First First Time In 04/06/21 [...] D, VITO MERLOS MD-ANS Role Performed Physician tutoring assistant FISH CUTTING MACHINE OPERATOR/Nurse Online Media Director Anesthesiologist of Record Time In 04/06/21 11:15:00 [...] ATTENDEE #1 Hema Schreiber, Robyn Sales, Diagnostic Therapist Occupational Role Performed Vendor Scrub, Second Shot Lighter Time In 04/06/21 11:15:00 04/06/21 11:15:00 04/06/21 [...] 11 Case Attendee Hema Schreiber, Lydia Cordero, Tessie Role Performed Scrub, First Advisor Advocate Angel Co Founder, First Time In 04/06/21 11:57:00 04/06/21 12:00:00 Time Out 04/06/21 13:04:00 04/06/21 13:04:00 Procedure Cervical Discectomy Cervical Discectomy Fusion Anterior Fusion Anterior Other Attendee [facility] Superficial Wound Closed By: Last Modified By: CLARK JAUREGUI, CLARK WATSON RN 04/06/21 13:03:22 04/06/21 13:03:22 [facility] IntraOp Case Attendance Audit 04/06/21 13:03:22 Perfusionist: WASSONSY Modifier: WASSONSY 1 <+> Time Out [...] Procedure Cervical Discectomy Fusion Anterior 04/06/21 12:05:52 Perfusionist: WASSONSY Modifier: WASSONSY <+> 11 Case Attendee <+> 11 Role Performed <+> 11 Time In <+> 11 Procedure <+> 11 Other Attendee 04/06/21 11:57:37 Perfusionist: WASSONSY Modifier: WASSONSY <+> 10 Case Attendee <+> 10 Role Performed <+> 10 Time In <+> 10 Procedure <+> 10 Other Attendee 04/06/21 11:57:14 Perfusionist: WASSONSY Modifier: WASSONSY 1 <*> Procedure Cervical [...] Procedure Cervical Discectomy Fusion Anterior 04/06/21 11:53:13 Perfusionist: WASSONSY Modifier: WASSONSY 1 <*> Procedure Cervical [...] Role Performed <+> 9 Procedure 04/06/21 11:48:20 Perfusionist: WASSONSY Modifier: WASSONSY <+> 8 Case Attendee <+> 8 Role Performed <+> 8 Time Out <+> 8 Procedure 04/06/21 11:47:37 Perfusionist: WASSONSY Modifier: WASSONSY 1 <+> Time In [...] Anterior 7 <*> Other Attendee BRANDYN RICHARDSON [facility] IntraOp Case Times Entry 1 Patient In Room Time 04/06/21 11:15:00 Out Room Time 04/06/21 13:04:00 Anesthesia Start Time 04/06/21 11:15:00 Stop Time 04/06/21 13:04:00 Surgery / Procedure Times Start Time 04/06/21 11:42:00 Stop Time 04/06/21 12:57:00 Last Modified By: CLARK JAUREGUI RN 04/06/21 13:03:11 [facility] IntraOp Case Times Audit 04/06/21 13:03:11 Perfusionist: JENNIFERTONYROSALIA Modifier: WASSONSY <+> 1 Out Room Time <+> 1 Stop Time <+> 1 Stop Time 04/06/21 11:46:55 Perfusionist: WASLENA Modifier: WASSONSY <+> 1 Start Time [facility] IntraOp Cautery Entry 1 Entry 2 ESU Identification Cautery Type Monopolar ESU BiPolar ESU Cautery Type Comments ID Number [id number] ID Type Hospital Number Hospital Number Cautery [...] WDL After Comment Last Modified By: CLARK JAUREGUI RN WASSON, SANDRA D, RN 04/06/21 11:49:21 04/06/21 11:50:42 [facility] IntraOp Cautery Audit 04/06/21 11:50:42 Perfusionist: HANG Modifier: WASTONYSY 2 <*> ID Number [id number] [facility] IntraOp Communication Entry 1 Communication To Family/Significant other Comment START Communication By CLARK JAUREGUI RN Date and Time 04/06/21 11:46:00 Last Modified By: CLARK JAUREGUI RN 04/06/21 11:47:05 [facility] IntraOp Counts Verification Entry 1 Procedure Cervical Discectomy Fusion Anterior Count Info Count Type Sponge, Sharps, Miscellaneous Counts Verification Baseline/pre-procedure Sequence Count Results Not Applicable Counts Performed By Count Performed By Hema Schreiber, SARAH (Scrub) Count Performed By CLARK JAUREGUI, RN (RN) Last Modified By: CLARK JAUREGUI RN 04/06/21 11:48:27 [facility] IntraOp Counts Verification Audit 04/06/21 11:48:27 Perfusionist: WASSONSY Modifier: WASSONSY 1 <*> Procedure Cervical Discectomy Fusion Anterior 1 <+> Count Performed By (Scrub) [facility] IntraOp Counts Final Entry 1 Procedure Cervical Discectomy Fusion Anterior Final Count Info Count Type Sponge, Sharps, Miscellaneous Counts Verification Skin Closure/end of Sequence procedure Count Results Correct, surgeon notified Counts Performed By Count Performed By Hema Schreiber CST (Scrub) Count Performed By CLARK JAUREGUI, RN (RN) Last Modified By: CLARK JAUREGUI RN 04/06/21 12:49:55 [facility] IntraOp Counts Final Audit 04/06/21 12:49:55 Perfusionist: WASSONSY Modifier: WASSONSY 1 <*> Procedure Cervical Discectomy Fusion Anterior 1 <+> Count Performed By (Scrub) 1 <+> Count Performed By (RN) [facility] IntraOp Cultures and Spec Summary Entry 1 Cultrures and Specimens Specimen Ordered: Yes Test(s) Routine/Path-Lab Requested/Final Disposition Last Modified By: CLARK JAUREGUI RN 04/06/21 11:47:49 General Comments: A. EXPLANTED HARDWARE [facility] IntraOp Departure from OR Entry 1 Integumentary Assessment Integumentary WDL Assessment WDL Transfer/Handoff Transfer to PACU Phase I Handoff Method Phone call Post-op Transport Stretcher/Gurney Via Patient Transport LEANNE RUIZ, NA, Accompanied by HEBERT GAMBOA Last Modified By: CLARK JAUREGUI RN 04/06/21 12:06:34 [facility] IntraOp Departure from OR Audit 04/06/21 12:06:34 Perfusionist: JUVENTINOSY Modifier: WASSONSY <+> 1 Patient Transport Accompanied by [facility] IntraOp Dressing and Packing Entry 1 Type Dressing Location NECK Wound Dressing Item Island Applied By HEBERT GAMBOA Other Comments OINTMENT, COVADERM Last Modified By: CLARK JAUREGUI RN 04/06/21 12:07:25 [facility] IntraOp Fire Risk Assessment Entry 1 Fire Info Surgical Site or 1- Yes Incision Above the Xyphoid Open O2 Source 0- No (Mask or Cannula) Available Ignition 1- Yes (ESU, Laser, Light Source) Fire Risk 2 Assessment Score Fire Score Fire Risk Yes Assessment Complete Fire Risk CLARK JAUREGUI, data warehouse architect Verified By Fire Risk 04/06/21 11:14:00 Assessment Verified Date/Time Fire Risk Standard Fire Yes Safety Precautions Followed Last Modified By: CLARK JAUREGUI RN 04/06/21 11:50:47 [facility] IntraOp Fire Risk Assessment Audit 04/06/21 11:50:47 Perfusionist: HANG Modifier: WASSONSY <+> 1 Fire Risk Assessment Verified By [facility] IntraOp General Case Chef Assistant 1 Case Information OR OR 11 [facility] Case Level 1 Room Verified Yes Wound Class I - Clean Specialty Neurosurgery Anesthesia Type General ASA Class 3 Diagnosis Preop Diagnosis CERVICAL RADICULOPATHY Postop Same As Preop No Postop Diagnosis SEE MD POST OP NOTE Last Modified By: CLARK JAUREGUI RN 04/06/21 11:49:40 [facility] IntraOp General Case Data Audit 04/06/21 11:49:40 Perfusionist: HANG Modifier: WASSONSY 1 <*> OR OR 09 [facility] 1 <+> ASA Class 1 <+> Room Verified [facility] IntraOp Implant Log Entry 1 Entry 2 Entry 3 Type Tissue Implant Implant (Synthetic) Implant (Synthetic) (Biologic) Implant Log Implant Type Hardware Hardware Tissue Implant Type Bone Implant BONE VIVIGEN FORMABLE CAGE EIT CIF H 6MM 8DEG PLT ANT SKYLN HYBRD Identification [id number] Description Implant Quantity 1 1 1 Implant Site CERIVAL CERVICAL SPINE OP SITE Implant Identification Model Number Implant [id number] Identification Serial Number Implant [id number] Identification Lot Number Implant Lifenet:Lifenet J&J:Depuy:Depuy Spine J&J:Depuy:Depuy Spine Identification Transplant Srv Balling Machine Operator Name: Implant [id number] [id number] Identification Catalog Number Implant Size Implant Has an Yes Yes Expiration Date Implant Expiration 02/23/22 02/14/25 Date Wasted Radioactive Material Time Implanted Tissue Implant Continue for Tissue Implant Documentation Tissue Identification Number Graft Prep Per Yes Balling Machine Operator Instructions: Tissue Preparation Thawed Method: Reconstitution Solution: Reconstitution Solution Lot Number Reconstitution Solution Expiration Date: Thawing Solution NACL Thawing Solution [id number] Lot Number Thawing Solution 12/16/22 Expiration Date Preparation Materials, Other Preparation Materials, Other Lot Number Preparation Materials, Other Expiration Date Tissue Hema Schreiber, SARAH Prepared/Processed By Balling Machine Operator Yes Paperwork Completed Implant Type Comment Last Modified By: CLARK JAUREGUI RN WASSON, SANDRA D, RN WASSON, SANDRA D, RN 04/06/21 12:38:32 04/06/21 12:38:32 04/06/21 12:49:39 Entry 4 Entry 5 Type Implant (Synthetic) Implant (Synthetic) Implant Log Implant Type Hardware Hardware Tissue Implant Type Implant SCR SKYLN VARI-OVSZ SCR SKYLN VARI SD Identification [id number] Description Implant Quantity 6 2 Implant Site OP SITE OP SITE Implant Identification Model Number Implant Identification Serial Number Implant Identification Lot Number Implant J&J:Depuy:Depuy Spine J&J:Depuy:Depuy Spine Identification Balling Machine Operator Name: Implant [id number] 1868-50-016 Identification Catalog Number Implant Size Implant Has an Expiration Date Implant Expiration Date Wasted Radioactive Material Time Implanted Tissue Implant Continue for Tissue Implant Documentation Tissue Identification Number Graft Prep Per Balling Machine Operator Instructions: Tissue Preparation Method: Reconstitution Solution: Reconstitution Solution Lot Number Reconstitution Solution Expiration Date: Thawing Solution Thawing Solution Lot Number Thawing Solution Expiration Date Preparation Materials, Other Preparation Materials, Other Lot Number Preparation Materials, Other Expiration Date Tissue Prepared/Processed By Balling Machine Operator Paperwork Completed Implant Type Comment Last Modified By: CLARK JAUREGUI RN WASSON, SANDRA D, RN 04/06/21 12:49:39 04/06/21 12:49:39 [facility] IntraOp Implant Log Audit 04/06/21 12:49:39 Perfusionist: HANG Modifier: JENNIFERTONYSY <+> 3 Implant Identification Description <+> 3 Implant Identification Balling Machine Operator Name: <+> 3 Implant Site <+> 3 Implant Quantity <+> 3 Implant Identification Catalog Number <+> 3 Implant Type <+> 3 Type <+> 4 Implant Identification Description <+> 4 Implant Identification Balling Machine Operator Name: <+> 4 Implant Site <+> 4 Implant Quantity <+> 4 Implant Identification Catalog Number <+> 4 Implant Type <+> 4 Type <+> 5 Implant Identification Description <+> 5 Implant Identification Balling Machine Operator Name: <+> 5 Implant Site <+> 5 Implant Quantity <+> 5 Implant Identification Catalog Number <+> 5 Implant Type <+> 5 Type [facility] IntraOp Intraoperative Assessment Entry 1 Handoff [...] Modified By: CLARK JAUREGUI RN 04/06/21 11:49:53 [facility] IntraOp Intraoperative Equipment Entry 1 Type Equipment Equipment Equipment Kg Suction System ID Number [id number] Setting 160 MM HG Intraop Monitoring Electrocardiogram Five lead placement (ECG) Electrode Placement Blood Pressure Non-Invasive BP Device Source Blood Pressure Arm, left upper Location Pulse Oximeter Hand, right Probe Site Antiembolic Devices Antiembolic Devices Sequential compression device, knee high Antiembolic Device Bilateral Location Antiembolic Device 20205 ID Number Scopes Photo/Video Documentation Photo No Video No Last Modified By: CLARK JAUREGUI RN 04/06/21 11:50:32 [facility] IntraOp Medication Admin Entry 1 Entry 2 Entry 3 Medication/Irrigant lidocaine 1% w/ SPNG SURGFOAM thrombin 5000units epinephrine 1:100,000 [id number] topical powder - 30ml vial - [id number] Combo Med List Time Administered Route of LOCAL TOPICAL TOPICAL Administration Dose Dose 10 1 5000 Unit of Measure ml pkt units Volume Administered By MARION COBOS TUTT, MATTHEW PAIGE, TUTT, MATTHEW PAIGE, MD-SNU -U -SNRaquel Procedure Irrigation Irrigant Volume In Irrigant Volume Out Last Modified By: CLARK JAUREGUI RN WASSON, SANDRA D, RN WASSON, SANDRA D, RN 04/06/21 11:55:23 04/06/21 11:55:23 04/06/21 11:55:23 Entry 4 Medication/Irrigant vancomycin 1Gm vial - [id number] Combo Med List Time Administered Route of ADDED TO NS IRRIGATIION Administration Dose Dose 1 Unit of Measure gram Volume Administered By MARION COBOS MD-SNRaquel Procedure Irrigation Irrigant Volume In Irrigant Volume Out Last Modified By: CLARK JAUREGUI RN 04/06/21 11:55:23 [facility] IntraOp Patient Positioning Entry 1 Procedure [...] Safety Strap, Thighs Positioned By MARION COBOS MD-MIKO, CLARK JAUREGUI, RN, LEANNE RUIZ, NA Position Verified Positioning Yes Verified by Anesthesia Positioning Yes Verified by Surgeon Last Modified By: CLARK JAUREGUI RN 04/06/21 11:52:27 [facility] IntraOp Sign In Entry 1 Patient, [...] Modified By: CLARK JAUREGUI RN 04/06/21 11:55:41 [facility] IntraOp Sign Out Entry 1 RN [...] Modified By: CLARK JAUREGUI RN 04/06/21 13:03:21 [facility] IntraOp Sign Out Audit 04/06/21 13:03:21 Perfusionist: HANG Modifier: WASSONSY <+> 1 RN Sign Out Signature Date/Time [facility] IntraOp Skin Prep Entry 1 Procedure Cervical Discectomy Fusion Anterior Prescribed Yes Pre-Surgical Prep Completed Prep Area OP SITE AFTER ALCOHOL AND HIBICLENS PREP PER DR PAPITO Intraop Prep Integumentary WDL Assessment WDL Prep Agents Alcohol, Chlorhexadine gluconate, DuraPrep Prep by CLARK JAUREGUI, RN Hair Removal Methods No hair removal performed Last Modified By: CLARK JAUREGUI RN 04/06/21 11:52:57 [facility] IntraOp Surgical Procedures Entry 1 Procedure Cervical Discectomy Fusion Anterior Additional (C6-7 ACDF WITH Procedure REVISION OF C4-6 Description HARDWARE) Primary Procedure Yes Primary Surgeon MARION COBOS MD-SNU Start 04/06/21 11:42:00 Stop 04/06/21 12:57:00 Anesthesia Type General Specialty Neurosurgery Wound Class I - Clean Last Modified By: CLARK JAUREGUI RN 04/06/21 13:03:14 General Comments: ANCEF 2 GRAM IV PER ANESTHESIA [facility] IntraOp Surgical Procedures Audit 04/06/21 13:03:14 Perfusionist: HANG Modifier: WASSONSY 1 <*> Stop 1 <*> Stop [facility] IntraOP Time Out Entry 1 Procedure [...] Modified By: CLARK JAUREGUI RN 04/06/21 11:44:18 [facility] IntraOp X-Ray and Images Entry 1 X-Ray/Imaging Type Fluoroscopy Fluoroscopy Type C-Arm Site OP SITE Statistician Applied Name Robyn Kumar, Diagnostic Therapist Occupational Last Modified By: CLARK JAUREGUI RN 04/06/21 [...]
--- OUTSIDE RECORDS SUMMARY | 2025-08-07 14:35 | XMS_ITS | Encounter Summary ---
Author Organization [employer] ([place], [place], [place], [place], [place]) Address [address] [place] [address] Care Team Providers Care Tray Line Worker Name Role Phone Unavailable Primary Care Provider Unavailabl e Encounter Details Date Type Department Care Team (Late st Contact Info) Description 10/06/2020 Transcribed Document [facility] [place] Family Medicine [facility] [place] [address] ProviderPat MD [address] [place] [address] Social History Tobacco Use Types [...] Conversion Note - Pat Marcum MD - 10/06/2020 4:28 PM EMPLOYEE HEALTH RN Patient Education Materials Follows: Outpatient Surgery, Adult, [...] and water are not available, use hand operating room tech. ? Change your dressing as told by [...] or a bad smell. Medicines ??? Take lbmr-rlq-scjptfx and prescription medicines only as told by [...] 12/24/2016 Document Revised: 12/02/2018 Document Reviewed: 12/24/2016 [employer] Patient Education ? 2020 [employer]. Electronically signed by Monroe Christopher Conversion Fountain Pen Nibs Inspector Stacyner at 01/07/2023 7:33 PM CDT documented in this encounter Plan of Treatment Not on file documented as of this encounter Visit Diagnoses Not on filedocumented in this encounter
--- OUTSIDE RECORDS SUMMARY | 2025-08-07 14:35 | XMS_ITS | Encounter Summary ---
Author Organization [employer] ([place], [place], [place], [place], [place]) Address [address] [place] [address] Care Team Providers Care Travel Registered Nurse Oncology Name Role Phone Unavailable Primary Care Provider Unavailabl e Encounter Details Date Type Department Care Team (Late st Contact Info) Description 10/05/2020 Transcribed Document [facility] Family Medicine [facility] [place] [address] ProviderPat MD [address] [place] [address] Social History Tobacco Use Types [...] - Historical ProviderMD - 10/05/2020 1:54 PM TRACTOR CRANE OPERATOR UM Authorization Entered On: 10/05/2020 13:54 EST Performed On: 10/05/2020 13:54 EST by REKHA BURNHAM, Building Architectural Designer Primary Insurance Authorization Authorization and Policy Numbers : Insurance 1 Health Plan: [employer] G[employer] Policy Number: [id number] Authorization Number: Authorization Comments-Primary : pt is bruno for OUT PT Cervical Discectomy Fusion Anterior on Sun10-06-20 Historical Authorization Comments-Primary : No Authorization Comments Found REKHA BURNHAM, Building Architectural Designer - 10/05/2020 13:54 EST Electronically signed by [facility] Conversion Certification And Selection Specialist Cerner at 01/07/2023 7:37 PM CDT documented in this encounter Plan of Treatment Not on file documented as of this encounter Visit Diagnoses Not on filedocumented in this encounter
--- OUTSIDE RECORDS SUMMARY | 2025-08-07 14:35 | XMS_ITS | Encounter Summary ---
Author Organization [employer] ([place], [place], [place], [place], [place]) Address [address] [place] [address] Care Team Providers Care Chain Maker Loom Control Name Role Phone Unavailable Primary Care Provider Unavailabl e Encounter Details Date Type Department Care Team (Late st Contact Info) Description 10/06/2020 Transcribed Document [facility] [place] Family Medicine [facility] [place] [address] ProviderPat MD [address] [place] [address] Social History Tobacco Use Types [...] - Pat ProviderMD - 10/06/2020 4:32 PM HEAVY DUTY TRUCK MECHANIC [facility] [place] [address] BUSHRA LUNDBERG :1965 Visit Time:10/06/2020 What [...] TIMES A DAY WHILE ON PAIN MEDICATION [facility] ACDF INSTRUCTIONS Discharge Follow Up Instructions: f/u 4-5 weeks post op with AP/lateral x-rays of the cervical spine. Follow-Up Appointments Follow Up with MARION SIMON When Within 1 month Comments Follow-up as instructed [facility] AT [facility] THEN FOLLOW UP WITH dr simon afterwards Where: [email or web address] (SUNDAY ONLY) [place] [address] M[employer] (1) Medications What How Much When Instructions [...] and water are not available, use hand car varnisher. ? Change your dressing as told by [...] or a bad smell. Medicines ??? Take qcft-ygj-dylzwuw and prescription medicines only as told by [...] 12/24/2016 Document Revised: 12/02/2018 Document Reviewed: 12/24/2016 [employer] Patient Education ?? 2020 [employer] Emergency Awareness and Preventative Care STROKE [...] Assistance with quitting is available by contacting 8-403-TWKY-NOW. This is a free resource providing counseling, [...] was given the opportunity to ask questions. Patient/Dial Brusher Name: Patient/Dial Brusher Signature: Relationship to Patient: Clinician/Hospital Dial Brusher Signature: Date: Electronically signed by [facility], [facility] Conversion C Wpf Developer Armen at 01/07/2023 7:29 PM CDT documented in this encounter Plan of Treatment Not on file documented as of this encounter Visit Diagnoses Not on filedocumented in this encounter
--- OUTSIDE RECORDS SUMMARY | 2025-08-07 14:35 | XMS_ITS | Encounter Summary ---
Author Organization [employer] ([place], [place], [place], [place], [place]) Address [address] [place] [address] Care Team Providers Care Dam Operator Name Role Phone Unavailable Primary Care Provider Unavailabl e Encounter Details Date Type Department Care Team (Late st Contact Info) Description 04/06/2021 Transcribed Document [facility] [address] [facility] [address] [place] [address] Srinivas Melendez MD [address] [facility] [address] [place] [address] Social History Tobacco Use Types [...] Problems PN (peripheral neuropathy) / SNOMED CT 595085450 / Confirmed Neck pain / SNOMED CT 731579130 / Confirmed Hypothyroid / SNOMED CT 61342604 / Confirmed HTN (hypertension) / SNOMED CT 8209441483 / Confirmed HLD (hyperlipidemia) / SNOMED CT 24321951 / Confirmed GERD (gastroesophageal reflux disease) / SNOMED CT 281823555 / Confirmed Depression / SNOMED CT 39011525 / Confirmed Back pain / SNOMED CT 003252000 / Confirmed At risk for sleep apnea / IMO 81628261 / Confirmed Anxiety / SNOMED CT 81638163 / Confirmed, Active Problems (10) Anxiety At [...] RUE weakness, LLE weakness. Integumentary: Warm, Dry, [place]. Neurologic: Alert, Oriented. Psychiatric: Cooperative, Appropriate mood [...]
--- OUTSIDE RECORDS SUMMARY | 2025-08-07 14:35 | XMS_ITS | Encounter Summary ---
Author Organization [employer] ([place], [place], [place], [place], [place]) Address [address] [place] [address] Care Team Providers Care Dental Assistant Instructor Name Role Phone Unavailable Primary Care Provider Unavailabl e Encounter Details Date Type Department Care Team (Late st Contact Info) Description 10/06/2020 Transcribed Document [facility] [place] Family Medicine [facility] [place] [address] ProviderPat MD [address] [place] [address] Social History Tobacco Use Types [...] - Pat ProviderMD - 10/06/2020 12:27 PM DIRECTOR DESIGN [facility] Main OR IntraOp Summary Primary Physician: MARION COBOS MD-SNU Finalized Date/Time: 10/07/20 13:51:00 Pt. Name: MELANIE ABDIO.B./Sex: 1965 Female Med Rec #: [id number] Physician: MARION COBOS MD-SNU Financial #: [id number] Pt. Type: O Room/Bed: Admit/Disch: 10/06/20 08:45:00 - 10/06/20 16:43:00 Institution: [facility] IntraOp Case Attendance Entry 1 Entry 2 Entry 3 Case Attendee MARION COBOS WASSON, SANDRA D RN NELSON NGUYEN, MADELEINE NEGRETE-SNU TECH Role Performed Surgeon/Proceduralist, Break And Load Operator, First Scrub, First First Time In 10/06/20 [...] A, VITO ELIAS MD-ANS Role Performed Physician entry level marketing assistant CERAMIC TILER/Nurse Highwall Drill Operator Anesthesiologist of Record Time In 10/06/20 [...] #1 JEROMY SAINI, RN Robyn Kumar, Diagnostic Senior Software Analyst Role Performed Student Break And Load Operator, Second Gold Miner Time In 10/06/20 11:57:00 10/06/20 11:57:00 10/06/20 [...] Modified By: CLARK JAUREGUI, SAYDA 10/06/20 12:44:32 [facility] IntraOp Case Attendance Audit 10/06/20 13:22:08 Sock Drier: WASSONSY Modifier: WASSONSY 1 <+> Time Out [...] Procedure Cervical Discectomy Fusion Anterior 10/06/20 12:44:32 Sock Drier: WASSONSY Modifier: WASSONSY 8 <+> Time Out 8 <*> Procedure Cervical Discectomy Fusion Anterior <+> 9 Case Attendee <+> 9 Role Performed <+> 9 Procedure <+> 10 Case Attendee <+> 10 Role Performed <+> 10 Procedure <+> 10 Other Attendee 10/06/20 12:15:00 Sock Drier: WASSONSY Modifier: WASSONSY 1 <*> Procedure Cervical [...] Procedure Cervical Discectomy Fusion Anterior 10/06/20 12:14:37 Sock Drier: WASSONSY Modifier: WASSONSY 1 <+> Time In [...] <+> 8 Role Performed <+> 8 Procedure [facility] IntraOp Case Times Entry 1 Patient In Room Time 10/06/20 11:57:00 Out Room Time 10/06/20 13:18:00 Anesthesia Start Time 10/06/20 11:57:00 Stop Time 10/06/20 13:19:00 Surgery / Procedure Times Start Time 10/06/20 12:27:00 Stop Time 10/06/20 13:12:00 Last Modified By: CLARK JAUREGUI RN 10/06/20 13:13:09 [facility] IntraOp Case Times Audit 10/06/20 13:22:05 Sock Drier: WASSONSY Modifier: WASSONSY <+> 1 Out Room Time <+> 1 Stop Time 10/06/20 13:13:09 Sock Drier: WASSONSY Modifier: WASSONSY <+> 1 Stop Time 10/06/20 12:28:55 Sock Drier: WASSONSY Modifier: WASSONSY <+> 1 Start Time [facility] IntraOp Cautery Entry 1 Entry 2 ESU Identification Cautery Type Monopolar ESU BiPolar ESU Cautery Type Comments ID Number [id number] ID Type Hospital Number Hospital Number Cautery [...] CLARK WATSON RN 10/06/20 12:19:57 10/06/20 12:19:57 [facility] IntraOp Cautery Audit 10/06/20 14:49:40 Sock Drier: WASSONSY Modifier: WASSONSY 1 <*> Grounding Pad Site Right thigh 10/06/20 12:46:50 Sock Drier: WASSONSY Modifier: WASSONSY 1 <*> Cautery Type BiPolar ESU 1 <*> Cut Setting 40 1 <*> Bipolar Setting 40 1 <+> Grounding Pad Site 1 <*> ID Number [id number] 1 <*> Grounding Pad Applied By CLARK JAUREGUI RN 2 <*> Cautery Type Monopolar ESU 2 <*> Cut Setting 40 2 <*> ID Number [id number] [facility] IntraOp Communication Entry 1 Communication To Family/Significant other Comment START Communication By JEROMY SAINI RN Date and Time 10/06/20 12:28:00 Last Modified By: CLARK JAUREGUI RN 10/06/20 12:14:46 [facility] IntraOp Communication Audit 10/06/20 12:28:37 Sock Drier: WASSONSY Modifier: WASSONSY <+> 1 Date and Time [facility] IntraOp Counts Verification Entry 1 Procedure Cervical Discectomy Fusion Anterior Count Info Count Type Sponge, Sharps Counts Verification Baseline/pre-procedure Sequence Count Results Correct, surgeon notified Counts Performed By Count Performed By NELSON NGUYEN SCRUB (Scrub) TECH Count Performed By CLARK JAUREGUI RN (RN) Last Modified By: CLARK JAUREGUI RN 10/06/20 12:46:58 [facility] IntraOp Counts Verification Audit 10/06/20 12:46:58 Sock Drier: WASSONSY Modifier: WASSONSY 1 <*> Procedure Cervical Discectomy Fusion Anterior 1 <*> Count Performed By (RN) NELSON NGUYEN SCRUB TECH [facility] IntraOp Counts Final Entry 1 Procedure Cervical Discectomy Fusion Anterior Final Count Info Count Type Sponge, Sharps, Miscellaneous Counts Verification Skin Closure/end of Sequence procedure Count Results Correct, surgeon notified Counts Performed By Count Performed By GULLETTE, NELSON, SCRUB (Scrub) TECH Count Performed By CLARK JAUREGUI RN (RN) Last Modified By: CLARK JAUREGUI RN 10/06/20 13:07:53 [facility] IntraOp Departure from OR Entry 1 Integumentary Assessment Integumentary WDL Assessment WDL Transfer/Handoff Transfer to PACU Phase I Handoff Method Bedside/Face to face, Phone call Handoff Reported to Jon Ruth RN Post-op Transport Stretcher/Gurney Via Patient Transport HEBERT GAMBOA, Accompanied by BERNICE BRUCE CRNA Last Modified By: CLARK JAUREGUI RN 10/06/20 12:47:18 [facility] IntraOp Departure from OR Audit 10/06/20 12:47:18 Sock Drier: HANG Modifier: WASSONSY <+> 1 Patient Transport Accompanied by <+> 1 Handoff Reported to [facility] IntraOp Dressing and Packing Entry 1 Type Dressing Location OP SITE Wound Dressing Item Steristrip, Other Applied By HEBERT GAMBOA Other Comments MASTISOL, STERISTRIPS, COVADERM Last Modified By: CLARK JAUREGUI RN 10/06/20 12:47:50 General Comments: COVERDERM [facility] IntraOp Dressing and Packing Audit 10/06/20 12:47:50 Sock Drier: HANG Modifier: WASSONSY 1 <*> Location 1 <*> Wound Dressing Item 1 <*> Applied By HEBERT GAMBOA 1 <*> Other Comments [facility] IntraOp Fire Risk Assessment Entry 1 Fire Info Surgical Site or 1- Yes Incision Above the Xyphoid Open O2 Source 0- No (Mask or Cannula) Available Ignition 1- Yes (ESU, Laser, Light Source) Fire Risk 2 Assessment Score Fire Score Fire Risk Yes Assessment Complete Fire Risk CLARK JAUREGUI life skills specialist Verified By Fire Risk 10/06/20 11:56:00 Assessment Verified Date/Time Fire Risk Standard Fire Yes Safety Precautions Followed Last Modified By: CLARK JAUREGUI RN 10/06/20 12:15:32 [facility] IntraOp Fire Risk Assessment Audit 10/06/20 12:48:04 Sock Drier: HANG Modifier: WASSONSY 1 <*> Fire Risk Assessment Verified By JEROMY SAINI RN 1 <*> Fire Risk Assessment Verified 10/06/20 12:15:00 Date/Time 10/06/20 12:28:03 Sock Drier: HANG Modifier: WASSONSY <+> 1 Fire Risk Assessment Complete [facility] IntraOp General Case Sole Assessor 1 Case Information OR OR 11 [facility] Case Level 1 Room Verified Yes Wound Class I - Clean Specialty SN Neurosurgery Anesthesia Type General ASA Class 3 Diagnosis Preop Diagnosis CERVICAL SPONDYLOSIS WITH MYELOPATHY Postop Same As Preop No Postop Diagnosis PLEASE SEE MD NOTES Last Modified By: CLARK JAUREGUI RN 10/06/20 12:16:32 [facility] IntraOp General Case Data Audit 10/06/20 12:16:32 Sock Drier: HANG Modifier: WASSONSY 1 <*> OR OR 09 [facility] 1 <+> ASA Class 1 <+> Anesthesia Type 1 <+> Postop Same As Preop 1 <+> Postop Diagnosis 1 <+> Room Verified [facility] IntraOp Implant Log Entry 1 Entry 2 Entry 3 Type Tissue Implant Implant (Synthetic) Implant (Synthetic) (Biologic) Implant Log Implant Type Hardware Hardware Tissue Implant Type Bone Implant BONE VIVIGEN FORMABLE CAGE EIT CIF H 5MM 8D CAGE EIT CIF H 5MM 8D Identification [id number] Description Implant Quantity 1 1 1 Implant Site OP SITE OP SITE OP SITE Implant Identification Model Number Implant [id number] Identification Serial Number Implant [id number] Identification Lot Number Implant Lifenet:Lifenet J&J:Depuy:Depuy Spine J&J:Depuy:Depuy Spine Identification Transplant Srv Public Health Worker Name: Implant [id number] Identification Catalog Number Implant Size Implant Has an Yes Yes Yes Expiration Date Implant Expiration 09/14/21 11/14/23 11/14/23 Date Wasted Radioactive Material Time Implanted Tissue Implant Continue for Tissue Implant Documentation Tissue Identification Number Graft Prep Per Public Health Worker Instructions: Tissue Preparation Method: Reconstitution Solution: Reconstitution Solution Lot Number Reconstitution Solution Expiration Date: Thawing Solution Thawing Solution Lot Number Thawing Solution Expiration Date Preparation Materials, Other Preparation Materials, Other Lot Number Preparation Materials, Other Expiration Date Tissue Prepared/Processed By Public Health Worker Paperwork Completed Implant Type Comment Last Modified By: CLARK JAUREGUI RN WASSON, SANDRA D RN CLARK JAUREGUI RN 10/06/20 12:52:08 10/06/20 12:57:34 10/06/20 12:58:46 Entry 4 Entry 5 Type Implant (Synthetic) Implant (Synthetic) Implant Log Implant Type Hardware Hardware Tissue Implant Type Implant PLT ANT SKYLN HYBRD SCR SKYLN VARI SD Identification [id number] Description Implant Quantity 1 6 Implant Site OP SITE OP SITE Implant Identification Model Number Implant Identification Serial Number Implant Identification Lot Number Implant J&J:Depuy:Depuy Spine J&J:Depuy:Depuy Spine Identification Public Health Worker Name: Implant [id number] Identification Catalog Number Implant Size Implant Has an Expiration Date Implant Expiration Date Wasted Radioactive Material Time Implanted Tissue Implant Continue for Tissue Implant Documentation Tissue Identification Number Graft Prep Per Public Health Worker Instructions: Tissue Preparation Method: Reconstitution Solution: Reconstitution Solution Lot Number Reconstitution Solution Expiration Date: Thawing Solution Thawing Solution Lot Number Thawing Solution Expiration Date Preparation Materials, Other Preparation Materials, Other Lot Number Preparation Materials, Other Expiration Date Tissue Prepared/Processed By Public Health Worker Paperwork Completed Implant Type Comment Last Modified By: CLARK JAUERGUI, CLARK WATSON RN 10/06/20 13:13:00 10/06/20 13:13:00 [facility] IntraOp Implant Log Audit 10/06/20 13:13:00 Sock Drier: WASSONSY Modifier: WASSONSY <+> 4 Implant Identification Description <+> 4 Implant Identification Public Health Worker Name: <+> 4 Implant Site <+> 4 Implant Quantity <+> 4 Implant Identification Catalog Number <+> 4 Implant Type <+> 4 Type <+> 5 Implant Identification Description <+> 5 Implant Identification Public Health Worker Name: <+> 5 Implant Site <+> 5 Implant Quantity <+> 5 Implant Identification Catalog Number <+> 5 Implant Type <+> 5 Type 10/06/20 12:58:46 Sock Drier: WASSONSY Modifier: WASSONSY <+> 3 Implant Identification Description <+> 3 Implant Identification Lot Number <+> 3 Implant Identification Public Health Worker Name: <+> 3 Implant Expiration Date <+> 3 Implant Site <+> 3 Implant Quantity <+> 3 Implant Identification Catalog Number <+> 3 Implant Type <+> 3 Implant Has an Expiration Date <+> 3 Type 10/06/20 12:57:34 Sock Drier: WASSONSY Modifier: WASSONSY <+> 2 Implant Identification Description <+> 2 Implant Identification Lot Number <+> 2 Implant Identification Public Health Worker Name: <+> 2 Implant Expiration Date <+> 2 Implant Site <+> 2 Implant Quantity <+> 2 Implant Identification Catalog Number <+> 2 Implant Type <+> 2 Implant Has an Expiration Date <+> 2 Type [facility] IntraOp Intraoperative Assessment Entry 1 [...] Modified By: CLARK JAUREGUI RN 10/06/20 12:48:18 [facility] IntraOp Intraoperative Assessment Audit 10/06/20 12:48:18 Sock Drier: HANG Modifier: WASSONSY 1 <*> Skin Assessment Verified Yes 1 <*> Handoff Method Bedside/Face to face, Phone call [facility] Intra Intraoperative Equipment Entry 1 Type Equipment Equipment Equipment Kg Suction System ID Number [id number] Setting 180 MM HG Intraop Monitoring Electrocardiogram Five lead placement (ECG) Electrode Placement Blood Pressure Non-Invasive BP Device Source Blood Pressure Arm, left lower Location Pulse Oximeter Hand, right Probe Site Antiembolic Devices Antiembolic Devices Sequential compression device, knee high Antiembolic Device Bilateral Location Antiembolic Device [id number] ID Number Scopes Photo/Video Documentation Photo No Video No Last Modified By: CLARK JAUREGUI RN 10/06/20 12:49:15 [facility] IntraOp Intraoperative Equipment Audit 10/06/20 12:49:15 Sock Drier: HANG Modifier: WASSONSY <+> 1 Photo <+> 1 Video <+> 1 ID Number <+> 1 Setting <+> 1 Electrocardiogram (ECG) Electrode Placement <+> 1 Blood Pressure Location <+> 1 Pulse Oximeter Probe Site <+> 1 Blood Pressure Source <+> 1 Antiembolic Device ID Number [facility] IntraOp Medication Admin Entry 1 Entry 2 Entry 3 Medication/Irrigant Bacitracin 50,00units lidocaine 1% w/ thrombin 5000units powder vial epinephrine 1:100,000 topical powder - 30ml vial - [id number] Combo Med List Time Administered Route of IRRIGATION LOCAL TOPICAL Administration Dose Dose 59238 10 5000 Unit of Measure units ml units Volume Administered By MARION COBOS, MARION COBOS MD-SNU MD-MIKO Procedure Irrigation Irrigant Volume In Irrigant Volume Out Last Modified By: CLARK JAUREGUI, CLARK WATSON, CLARK WATSON RN 10/06/20 12:31:00 10/06/20 12:31:00 10/06/20 12:31:00 Entry 4 Medication/Irrigant SPNG SURGFOAM [id number] Combo Med List Time Administered Route of TOPICAL Administration Dose Dose Unit of Measure Volume Administered By MARION COBOS MD-SNU Procedure Irrigation Irrigant Volume In Irrigant Volume Out Last Modified By: CLARK JAUREGUI RN 10/06/20 12:31:00 [facility] IntraOp Patient Positioning Entry 1 [...] By MARION COBOS MD-SNU, CLARK JAUREGUI, RN, BERNICE BRUCE CRNA, JEROMY SAINI RN Position Verified Positioning Yes Verified by Anesthesia Positioning Yes Verified by Surgeon Last Modified By: CLARK JAUREGUI RN 10/06/20 12:26:54 [facility] IntraOp Patient Positioning Audit 10/06/20 12:50:11 Sock Drier: WASSONSY Modifier: WASSONSY 1 <*> Procedure Cervical Discectomy Fusion Anterior 1 <*> Positioning Devices Arm Board, Pad, Arm, Pillows [facility] IntraOp Sign In Entry 1 [...] Modified By: CLARK JAUREGUI RN 10/06/20 12:50:24 [facility] IntraOp Sign In Audit 10/06/20 12:50:24 Sock Drier: WASTONYSY Modifier: WASSONSY 1 <*> Allergies No 1 <*> Blood Identifiers Verified Per Not applicable Policy [facility] IntraOp Sign Out Entry 1 [...] Modified By: CLARK JAUREGUI RN 10/06/20 12:29:20 [facility] IntraOp Sign Out Audit 10/06/20 13:22:22 Sock Drier: WASLENA Modifier: WASSONSY <+> 1 RN Sign Out Signature Date/Time 10/06/20 12:51:21 Sock Drier: WASSONSY Modifier: WASSONSY 1 <*> Specimen Labeled Correctly Yes 1 <+> RN Sign Out Signature [facility] IntraOp Skin Prep Entry 1 Procedure Cervical Discectomy Fusion Anterior Prescribed Yes Pre-Surgical Prep Completed Prep Area NECK AFTER ALCOHOL AND HIBICLENS PREP PER DR COBOS Intraop Prep Integumentary WDL Assessment WDL Prep Agents Alcohol, Chlorhexadine gluconate, DuraPrep Prep by JEROMY SAINI RN Hair Removal Methods No hair removal performed Last Modified By: CLARK JAUREGUI RN 10/06/20 12:17:22 [facility] IntraOp Skin Prep Audit 10/06/20 12:51:04 Sock Drier: WASSONSY Modifier: WASSONSY 1 <*> Prep Area NECK 1 <*> Procedure Cervical Discectomy Fusion Anterior 1 <*> [facility] Surgical Procedures Entry 1 Procedure Cervical Discectomy Fusion Anterior Additional (C4-6 ACDF) Procedure Description Primary Procedure Yes Primary Surgeon MARION COBOS MD-[facility] Start 10/06/20 12:27:00 Stop 10/06/20 13:12:00 Anesthesia Type General Specialty SN Neurosurgery Wound Class I - Clean Last Modified By: CLARK JAUREGUI RN 10/06/20 12:19:31 [facility] IntraOp Surgical Procedures Audit 10/06/20 13:13:12 Sock Drier: WASSONSY Modifier: WASSONSY <+> 1 Stop 10/06/20 12:29:03 Sock Drier: WASSONSY Modifier: WASSONSY <+> 1 Start [facility] IntraOp Temp Regulation Devices Entry 1 Temp Regulation Temperature Forced Air Warming Regulation Device device Temperature 22650 Regulation Device Serial/Unit Number Temperature Lower body Regulation Site Temperature Device 43 C Setting Temperature BERNICE BRUCE CRNA Regulation Device Applied by Last Modified By: CLARK JAUREGUI RN 10/06/20 12:43:51 [facility] IntraOP Time Out Entry 1 [...] Modified By: CLARK JAUREGUI RN 10/06/20 12:28:49 [facility] IntraOP Time Out Audit 10/06/20 12:28:49 Sock Drier: WASSONSY Modifier: WASSONSY 1 <+> Time Out Pause Time 1 <*> Procedure to be Performed Cervical Discectomy Fusion Anterior 10/06/20 12:27:48 Sock Drier: HANG Modifier: HANG 1 <*> Beta Michelle [...] Performed in location of procedure after prepped/draped [facility] IntraOp X-Ray and Images Entry 1 X-Ray/Imaging Type Fluoroscopy Fluoroscopy Type C-Arm Site OP SITE Fur Coat Sewer Name Robyn Kumar, Diagnostic Senior Software Analyst Last Modified By: CLARK JAUREGUI RN 10/06/20 12:44:50 Case Comments <None> Finalized By: BO ALEX Document Signatures Signed By: CLARK JAUREGUI RN 10/06/20 14:49 CLARK JAUREGUI RN 10/06/20 13:22 BO ALEX 10/07/20 13:51 Unfinalized History Date/Time Username Reason for Unfinalizing Freetext Reason for Unfinalizing 10/06/20 14:49 HANG Correct Documentation 10/07/20 13:48 TOMAS Correct Billing Electronically signed by [facility] Conversion Graphic Design Manager Cerner at 01/07/2023 7:36 PM CDT documented in this encounter Plan of Treatment Not on file documented as of this encounter Visit Diagnoses Not on filedocumented in this encounter
--- OUTSIDE RECORDS SUMMARY | 2025-08-07 14:35 | XMS_ITS | Encounter Summary ---
Author Organization [employer] ([place], [place], [place], [place], [place]) Address [address] [place] [address] Care Team Providers Care Coal Picker Name Role Phone Unavailable Primary Care Provider Unavailabl e Encounter Details Date Type Department Care Team (Late st Contact Info) Description 04/01/2021 Transcribed Document [facility] [place] [facility] [place] [address] ProviderPat MD [address] [place] [address] Social History Tobacco Use Types [...] Source : Measured Height Entry Format : [place] Height, Feet : 0 ft(Converted to: 0 cm, 0 Inch) Height, Inches : 63.5 Inch(Converted to: 5 ft 3 Inch, 161.29 cm) Clinical Height : 161.29 cm Weight Source : Standing scale Weight Entry Format : [place] Clinical Dosing Weight : 110.94 kg Weight, Pounds : 244 lb Weight, Ounces : 1 oz Body Surface Area (BSA) : 2.12 m2 Body Mass Index : 42.6 kg/m2 (>HHI) [place] Body Weight : 53 kg ROBERT HOLBROOK RN - 04/04/2021 8:07 EDT Health Histories Smoking Status : Former smoker, quit more than 30 days ago Smokeless Tobacco Status : Never Implant/Device Type, Certified Credit Counselor and Model : hardware in neck Anthony Cullen Rn - 04/01/2021 9:58 EDT Social History (As Of: 04/01/2021 10:00:46 EDT) Tobacco: Former smoker, quit more than 30 days ago Smoking Status. (Last Updated: 10/05/2020 16:26:15 EST by Radha Hawley, RN) Former smoker, quit more than 30 [...] : Yes Spiritual/Cultural Needs Comment : 04/06 Zoroastrianism Preference : Restorationist ([employer] of [place]) Spiritual/Cultural Needs Comment : 04/06 Anthony Cullen Rn - 04/01/2021 9:58 EDT [place] Suicide Severity Rating Scale (C-SSRS) CSSRS Past [...] Info Legal Guardian : Friend Support Person/Patient Siphoner : Yes Support Person/Pt Rep Name : Lena Chapman - friend Support Person/Pt Rep Contact Information : [phone] Want Family/Rep/Phys Notified of Admit : No Emergency Contact #1 : ` Emergency Contact #1 Phone Number : ` Emergency Contact #1 Relationship : ` Emergency Contact #2 : ` Emergency Contact #2 Phone Number : ` Emergency Contact #2 Relationship : ` Primary Language : Guyanese Communication Barrier : None Supervisor Travel Information Center Needed : No Anthony Cullen Rn - [...]
--- OUTSIDE RECORDS SUMMARY | 2025-08-07 14:35 | XMS_ITS | Encounter Summary ---
Author Organization [employer] ([place], [place], [place], [place], [place]) Address [address] [place] [address] Care Team Providers Care Laboratory Asst Name Role Phone Unavailable Primary Care Provider Unavailabl e Encounter Details Date Type Department Care Team (Late st Contact Info) Description 04/06/2021 Transcribed Document [facility] [place] [address] ProviderPat MD [address] [place] [address] Social History Tobacco Use Types [...] Pat ProviderMD - 04/06/2021 11:42 AM CDT [facility] Main OR PACU Summary Primary Physician: MARION COBOS MD-SNU Finalized Date/Time: 04/06/21 14:03:32 Pt. Name: BUSHRA LUNDBERG D.O.B./Sex: 1965 Female Med Rec #: [id number] Physician: MARION COBOS MD-SNU Financial #: [id number] Pt. Type: O Room/Bed: ASA/3 Admit/Disch: 04/06/21 06:47:00 - Institution: [facility] Main OR PACU I Case Times Entry 1 In PACU I 04/06/21 13:05:00 Ready for PACU 04/06/21 13:55:00 Discharge Discharge from PACU 04/06/21 13:55:00 I Last Modified By: COSMO PIERRE RN 04/06/21 14:03:24 [facility] Main OR PACU I Case Times Audit 04/06/21 14:03:24 Infection Prevention Practitioner: [id number] Modifier: [id number] <+> 1 Ready for PACU Discharge <+> 1 Discharge from PACU I Finalized By: COSMO PIERRE RN Document Signatures Signed By: COSMO PIERRE RN 04/06/21 14:03 Electronically signed by Ashwin [facility] Conversion Cad Drafter Cerner at 01/07/2023 7:30 PM CDT documented in this encounter Plan of Treatment Not on file documented as of this encounter Visit Diagnoses Not on filedocumented in this encounter
--- OUTSIDE RECORDS SUMMARY | 2025-08-07 14:35 | XMS_ITS | Encounter Summary ---
Author Organization [employer] ([place], [place], [place], [place], [place]) Address [address] [place] [address] Care Team Providers Care Electrician Underground Name Role Phone Unavailable Primary Care Provider Unavailabl e Encounter Details Date Type Department Care Team (Late st Contact Info) Description 10/06/2020 Transcribed Document [facility] [place] [facility] [place] [address] ProviderPat MD [address] [place] [address] Social History Tobacco Use [...] - Pat ProviderMD - 10/06/2020 12:27 PM [facility] Main OR Preop Summary Primary Physician: MARION COBOS MD-SNU Finalized Date/Time: 10/06/20 15:23:47 Pt. Name: BUSHRA LUNDBERG D.O.B./Sex: 1965 Female Med Rec #: [id number] Physician: MARION COBOS MD-SNU Financial #: [id number] Pt. Type: O Room/Bed: Admit/Disch: 10/06/20 08:45:00 - Institution: [facility] PreOp Case Times Entry 1 In Preop 10/06/20 09:48:00 Ready for Holding n/a Room Patient Ready for 10/06/20 10:45:00 Surgery Patient Out of Preop 10/06/20 11:55:00 Patient Out of n/a Holding Room Last Modified By: Radha Hawley RN 10/06/20 12:19:10 [facility] PreOp Case Times Audit 10/06/20 12:19:10 Java Programmer: BRITTON Modifier: [email or web address] <+> 1 Patient Out of Preop Finalized By: Radha Hawley, RN Document Signatures Signed By: Radha Hawley RN 10/06/20 15:23 Electronically signed by Ashwin [facility] Conversion Billiard Table Mechanic Cerner at 01/07/2023 7:30 PM CDT documented in this encounter Plan of Treatment Not on file documented as of this encounter Visit Diagnoses Not on filedocumented in this encounter
--- OUTSIDE RECORDS SUMMARY | 2025-08-07 14:35 | XMS_ITS | Encounter Summary ---
Author Organization [employer] ([place], [place], [place], [place], [place]) Address [address] [place] [address] Care Team Providers Care Virtual Recruiter Name Role Phone Unavailable Primary Care Provider Unavailabl e Encounter Details Date Type Department Care Team (Late st Contact Info) Description 04/06/2021 Transcribed Document [facility] [place] [facility] [address] ProviderPat MD [address] [place] [address] Social History Tobacco Use Types [...] Pat ProviderMD - 04/06/2021 2:13 PM CD[place] [address] BUSHRA LUNDBERG :1965 Visit Time:04/06/2021 What to do next [...] days Comments Follow-up appointment at 9:15am Where: [address] (SUNDAY ONLY) [place] [address]- Medications What How Much When Instructions Next [...] activities are safe for you. ??? Take fard-xsi-fypsiuf and prescription medicines only as told by [...] provider. Document Revised: 09/06/2018 Document Reviewed: 04/19/2018 [employer] Patient Education ?? 2020 [employer] Anterior Cervical Diskectomy and Fusion, Care [...] and water are not available, use hand fiscal services director. ? Change your dressing as told by [...] Managing pain, stiffness, and swelling ??? Take eiau-qhw-wvalavy and prescription medicines only as told by [...] keep your urine pale yellow. ? Take xhnk-yhh-nceujsm or prescription medicines. ? Eat foods that [...] provider. Document Revised: 05/29/2019 Document Reviewed: 05/29/2019 [employer] Patient Education ?? 2020 [employer]. Emergency Awareness and Preventative Care STROKE is [...] Assistance with quitting is available by contacting 3-478-FZGH-NOW. This is a free resource providing counseling, [...] ) Urine Bilirubin Dipstick: Negative Urine Specific [place]: 1.012 -- Normal range between ( 1.005 [...] between ( 7 and 22 ) Patient Name:JINBUSHRA NIETO I have received this information and was given the opportunity to ask questions. Patient/Film Touch Up Inspector Name: Patient/Film Touch Up Inspector Signature: Relationship to Patient: Clinician/Hospital Film Touch Up Inspector Signature: Date: Electronically signed by Interface, [facility] Conversion Powerplant Operator Armen at 01/07/2023 7:35 PM CDT documented in this encounter Plan of Treatment Not on file documented as of this encounter Visit Diagnoses Not on filedocumented in this encounter
--- OUTSIDE RECORDS SUMMARY | 2025-08-07 14:35 | XMS_ITS | Data Portability ---
Author Organization MAURISIO PEMA Marte MANASQUAN CLOSED Address [address] [facility] [address] [place] [address] Care Team Providers Care Physical Sciences Professor Name Role Phone YAMILETH ZAVALETA Referring Provider [phone] ASHISH ATKINSON Primary Care Provider Assessment Encounter [...] with voice recognition technology and may include loan coordinator errors. Not available 03/07/2021 11:00:40 05/19/2021 05/19/2021 [...] visit with new AP lateral cervical x-ray [facility]. She says she still has a little [...] or 3 view [facility] [address] [facility] [place] [address] Monicaclara jennie Name: BIA schneider : 01/20/19 [...] Edwin Stewart MD on 01/21/20 8:51 AM [facility] Radiology [facility] [address] [place] [address], [phone], 01/24/2021 17:29:17 02/01/20 21 01/31/2021 MRI, cervi sharon spine , w/wo contr ast [address] [place] [address] Karlee t Name: BIA Desir t : [...] ality is identi fied. The visual ized pelletizer ior fossa of the brain is normal [...] strati on of [address] ([facility] [address]- [id number] 2), there is no abnorm al [...] Cherelle silveira MD on 021 11:05 AM [facility] Radiology [facility] [address] [place], [address], 02/01/2021 16:34:20 03/01/20 21 03/01/2021 nerve condu ction study /EMG, upper extre mity (PROC ) No observ ation record ed. [facility] [address] [place], [address], 03/28/2021 17:43:06 04/06/20 21 04/06/2021 fluor oscop y (PROC ) No observ ation record ed. [email or web address] [facility] Central Scheduling [address] [facility] , [place], [address], 04/08/2021 14:25:37 05/19/20 21 05/19/2021 XR, cervi sharon spine , 2 [facility] [address] [place] [address] Paticlara t Name: BIA Schneider Paticlara t [...] Edwin Stewart MD on 05/19/20 1:30 PM [facility] Radiology [facility] [address] [place] [address], [phone], 05/19/2021 18:02:04 08/18/20 21 08/18/2021 XR, cervi sharon spine , 2 or [address] [address] Paticlara t Name: BIA schneider : 01/20/19 [...] Kimberly Langford MD on 021 3:54 PM [facility] Radiology [address], [address], 08/19/2021 09:21:43 Result Notes Documentation Provider Name and Address Organization Details Recorded Time Xr, Cervical Spine, 2 Or 3 View : [address] [address] Patient Name: MELANIE LUNDBERG Patient : 1965 [...] By: Edwin Stewart MD ON MELENDEZ MD [address] [place] [address], [phone], [facility] 01/24/2021 10:41:27 Mri, Cervical Spine, W/wo Contrast : [facility] [address] [place] [address] Patient Name: MELANIE LUNDBERG Patient : 1965 [...] After intravenous administration of 10 mL Gadavist ([facility] [address]-80), there is no abnormal enhancement in the [...] By: Foster August MD O MELISSA PA-C [address] [place] [address], [phone], [facility] 02/01/2021 16:34:20 Xr, Cervical Spine, 2 Or 3 View : [address] [address] Patient Name: MELANIE LUNDBERG Patient : 1965 [...] By: Edwin Stewart MD ON MELENDEZ MD [address] [place] [address], [phone], [facility] 05/19/2021 13:49:12 Xr, Cervical Spine, 2 Or 3 View : [address] [address] Patient Name: MELANIE LUNDBERG Patient : 1965 [...] By: Kurtis Langford MD O MELISSA PA-C [address] [place] [address], [phone] 08/18/2021 17:11:30 Procedures Surgical History Date Name Laterality Status Provider Name and Address Organization Details Recorded Time 021 ANTERIOR CERVICAL DISCECTOMY AND FUSION, LEVEL SPECIFIED, WITH HARDWARE (SURG) completed Candy Melendrez [facility] 04/11/2021 16:27:57 021 Electromyography (EMG) with Nerve Conduction Study (NCV) completed Yari Payan (Nicky) [facility] 03/01/2021 10:44:38 021 ANTERIOR CERVICAL DISCECTOMY AND FUSION, LEVEL SPECIFIED, WITH HARDWARE (SURG) completed [facility] 10/22/2020 08:13:57 021 ANTERIOR CERVICAL DISCECTOMY AND FUSION, LEVEL SPECIFIED, WITH HARDWARE (SURG) completed [facility] 11/05/2020 16:07:08 laparoscopic sleeve gastrectomy completed [facility] 09/27/2020 09:27:30 [facility] 09:27:42 Imaging Results None recorded. Procedure [...] Updated DateTime 2021 160.02 cm 40.7 kg/m2 248397.25 g 142/80 mm[Hg] [facility] 2021 09:31:14 Date Recorded Body height Provider Name an d Address Organization Details Last Updated DateTime 05/19/2021 160.02 cm Nery Carranza [facility] 10/2020 14:11:54 Date Recorded Body height Body mass index (BMI) Body weight Systolic And Diastolic Provider Name and Address Organization Details Last Updated DateTime 08/18/2021 160.02 cm 40.7 kg/m2 483824.25 g 130/82 mm[Hg] [facility] 08/18/2021 10:48:59 Social History None recorded. Functional [...] Diagnosis SNOMED-CT Code Diagnosis ICD10 Code Diagnosis IMO Codes Diagnosis Note [id number] MARION MELENDEZ MD NEUROSURG [facility] [address] [address] [place] [address] 09/27/2020 08:28:55 09/27/2020 10:49:12 Cervical spondylosis with myelopathy [id number] M47.12 [id number] MARION MELENDEZ MD SURGERY SCHEDULE [address] [place] [address] 10/12/2020 09:31:36 10/12/2020 11:21:55 [id number] HEBERT GAMBOA PA-C NEUROSURG [facility] [address] [place] [address] 0 11/18/2020 10:05:27 11/23/2020 13:03:13 [id number] CHOCO MELISSA PA-C NEUROSURG [facility] [address] [place] [address] 0 2021 09:02:56 01/21/2021 15:06:30 Cervical radiculopathy 46574367 M54.12 [id number] KRISTI BRASWELL MD NEUROLOGY SB CLOSED [address] [place] [address] 03/01/2021 08:58:19 03/01/2021 10:50:27 Cervical radiculopathy 57791265 M54.12 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 [id number] 30808 G56.01 [id number] MARION MELENDEZ MD SURGERY SCHEDULE [address] [place] [address] 04/14/2021 08:40:55 04/14/2021 13:24:31 [id number] MARION MELENDEZ MD NEUROSURG [facility] [address] [place] [address] 0 05/19/2021 13:30:28 05/20/2021 16:10:58 Postoperative care [id number] Z48.89 [id number] CHOCO MELISSA PA-C NEUROSURG [facility] [address] [place] [address] 08/18/2021 10:28:01 08/19/2021 09:17:33 Postoperative visit [id number] Z09 Health Concerns Section Related Observation LastModified by Organization Detai ls LastModified Time None Recorded Concern Status LastModified by Organization Details LastModified Time None Recorded Advance Directives Directive None Recorded Payers Insurance Date Sequence Insurance Name Policy Number Policy Rojas Covered Member ID Rojas Member ID Guarantor Name 05/15/2021 1 [facility] (MEDICAID REPLACEMENT - HMO) [id number] Melanie Lundberg [id number] Melanie Lundberg 08/17/2021 1 [facility] (MEDICAID REPLACEMENT - HMO) Melanie Lundberg [id number] Melanie Lundberg Notes Date Note Type Note Provider Name and Address Organization Details Recorded Time 2021 text/html ROS as noted in the HPI Ms. Lundberg is a 56yo female with [...] all of her fingers. CHOCO MELISSA PA-C [address] [place] [address], [phone], [facility] 03/07/2021 11:00:45 05/19/2021 text/html ROS as noted in the HPI Mrs. Lundberg is doing well after a C6-7 ACDF extension. Her previous C4-5 and C5-6 ACDF was October 06, 2020. She is doing well and progressing as expected. The numbness and pain in her arms has been relieved, she continues to have some hand numbness, perhaps related to carpal tunnel she presents today for her first postoperative visit with x-rays. MARION MELENDEZ MD [address] [place] [address], [phone], [facility] 05/19/2021 14:53:03 08/18/2021 text/html ROS as noted in the HPI Ms. Lundberg is a 56-year-old female with history of C4-6 ACDF on 10/06/[address] Melendez him a C6-7 extension on 04/06/21, last seen here in 05/19/21, here for recheck and second postop visit with new AP lateral cervical x-ray [facility]. She says she still has a little [...] stimulator trial soon. CHOCO MELISSA PA-C [address] [place], [address], [facility] 08/18/2021 11:30:25 OBGyn Episode No OBEpisode recorded.
--- OUTSIDE RECORDS SUMMARY | 2025-08-07 14:35 | XMS_ITS | Encounter Summary ---
Author Organization [employer] ([place], [place], [place], [place], [place]) Address [address] [place] [address] Care Team Providers Care Gold Assayer Name Role Phone Unavailable Primary Care Provider Unavailabl e Encounter Details Date Type Department Care Team (Late st Contact Info) Description 04/06/2021 Transcribed Document [facility] [place] [facility] [place] [address] ProviderPat MD [address] [place] [address] Social History Tobacco Use Types [...] Pat ProviderMD - 04/06/2021 11:42 AM CDT [facility] Main OR Preop Summary Primary Physician: MARION COBOS MD-SNU Finalized Date/Time: 04/06/21 12:32:08 Pt. Name: BUSHRA LUNDBERG D.O.B./Sex: 1965 Female Med Rec #: [id number] Physician: MARION COBOS MD-SNU Financial #: [id number] Pt. Type: O Room/Bed: ASA/3 Admit/Disch: 04/06/21 06:47:00 - Institution: [facility] PreOp Case Times Entry 1 In Preop 04/06/21 08:53:00 Ready for Holding n/a Room Patient Ready for 04/06/21 10:00:00 Surgery Patient Out of Preop 04/06/21 11:11:00 Patient Out of n/a Holding Room Last Modified By: ANA LORD RN 04/06/21 12:32:01 [facility] PreOp Case Times Audit 04/06/21 12:32:01 Compressor Operator: KODAK Modifier: MISTYHATFIELD <+> 1 Patient Out of Preop 04/06/21 10:12:28 Compressor Operator: KODAK Modifier: MISTYHATFIELD 1 <*> Patient Ready for Surgery 04/06/21 10:12:00 Finalized By: ANA LORD RN Document Signatures Signed By: ANA LORD RN 04/06/21 12:32 Electronically signed by [facility] Conversion Airport Control Operator Cerner at 01/07/2023 7:30 PM CDT documented in this encounter Plan of Treatment Not on file documented as of this encounter Visit Diagnoses Not on filedocumented in this encounter
--- OUTSIDE RECORDS SUMMARY | 2025-08-07 14:35 | XMS_ITS | Clinical Summary ---
Author Organization [employer] ([place], [place], [place], [place], [place]) Address [address] [place] [address] Care Team Providers Care Wheat Inspector Name Role Phone Unavailable Primary Care [...]
--- OUTSIDE RECORDS SUMMARY | 2025-08-07 14:35 | XMS_ITS | Encounter Summary ---
Author Organization [employer] ([place], [place], [place], [place], [place]) Address [address] [place] [address] Care Team Providers Care Brim Welt Sewing Machine Operator Name Role Phone Unavailable Primary Care Provider Unavailabl e Encounter Details Date Type Department Care Team (Late st Contact Info) Description 04/06/2021 Transcribed Document [facility] Neurology - [address] [facility] [address] [place] [address] Srinivas Melendez MD [address] [facility] [address] [place] [address] Social History Tobacco Use Types [...] diskectomy and fusion. 2. Replating from C4-C7. ROLL SLICING MACHINE TENDER: [place]. TYPE OF ANESTHESIA: GEA. DESCRIPTION [...] the distraction pins were. A 48 mm [place] plate was then affixed to the anterior [...] LOSS: 50 mL. DRAINS: None. COMPLICATIONS: None. /[id number] MD BEN Rodrigez/RIGOBERTO / MPT / MODL /[id number] CC: Leeann Johnson documented in this encounter Plan of Treatment Not on file documented as of this encounter Visit Diagnoses Not on filedocumented in this encounter
--- OUTSIDE RECORDS SUMMARY | 2025-08-07 14:35 | XMS_ITS | Encounter Summary ---
Author Organization [employer] ([place], [place], [place], [place], [place]) Address [address] [place] [address] Care Team Providers Care Administrative Aide Name Role Phone Unavailable Primary Care Provider Unavailabl e Encounter Details Date Type Department Care Team (Late st Contact Info) Description 10/05/2020 Transcribed Document [facility] [place] [facility] [place] [address] ProviderPat MD [address] [place] [address] Social History Tobacco Use Types [...] Cerner Conversion Note - Pat ProviderMD - 10/05/2020 4:24 PM SHRIMP BOAT CAPTAIN PAT Adult Entered On: 10/05/2020 16:28 EST Performed On: 10/05/2020 16:24 EST by Radha Hawley RN Height and Weight, Clinical Dosing Height Source : Measured Height Entry Format : Coleman Height, Feet : 5 ft(Converted to: 152 cm, 60 Inch) Height, Inches : 3 Inch(Converted to: 0 ft 3 Inch, 7.62 cm) Clinical Height : 160.02 cm Weight Source : Standing scale Weight Entry Format : Coleman Clinical Dosing Weight : 110.91 kg Weight, Pounds : 244 lb Body Surface Area (BSA) : 2.11 m2 Body Mass Index : 43.3 kg/m2 (>HHI) [place] Body Weight : 52 kg Radha Hawley [...] No, patient refuses Advance Directive information Radha Hwaley RN - 10/05/2020 16:24 EST [place] Suicide Severity Rating Scale (C-SSRS) CSSRS Past [...] Support Person/Pt Rep Name : Raymond Lundberg [phone] Want Family/Rep/Phys Notified of Admit : No Emergency Contact #1 : x Emergency Contact #1 Phone Number : x Emergency Contact #1 Relationship : x Emergency Contact #2 : x Emergency Contact #2 Phone Number : x Emergency Contact #2 Relationship : x Chief Complaint : x Primary Language : Algerian Communication Barrier : None Business Case Analyst Needed : No Radha Hawley RN - [...]
[2025-08-07 15:48] LABS: Free T4 (Free Thyroxine) 1.28 ng/dl (0.78-2.19)
[2025-08-07 16:04] LABS: Thyroid Stimulating Hormone 8.19 uIU/mL (0.465-4.68)
== END 2025-08-07 23:59 | disposition home or self-care (01) ==
LOC: LAB 14:32
PROVIDERS: PCP Internal Medicine; Visit Provider Student in an Organized Health Care Education/Training Program
DX: E06.3 Autoimmune thyroiditis (principal)
CPT/HCPCS: 36415; 84439; 84443

== ENCOUNTER 2025-09-08 08:15 | Day surgery (SDC) | payer MEDICAID, SELFPAY ==
[2025-09-08 08:29] VITALS: BP 103/65; PULSE 68; RESP 16; O2SAT 96; BMI 42.8
[2025-09-08 08:35] VITALS: BP 135/53; PULSE 66; RESP 18; O2SAT 100
[2025-09-08] MEDS: DEXAMETHASONE 10MG/ML 1ML VIAL 10 MG (08:42)
[2025-09-08 08:46] VITALS: BP 135/53; PULSE 70; RESP 18; O2SAT 100
--- NOTE | 2025-09-08 08:47 | P.PCN_ITS ---
Procedure Date: 09/08/25 Time: 08:40 Anesthesiologist:: Ricardo Quiroga CRNA Complications:: None Pre-procedure Diagnosis:: Degenerative disc lumbar spine. Lumbar radiculopathy. Post-procedure Diagnosis:: Same. Indications for Procedure:: Patient is a very pleasant 60-year-old female comes our clinic today for lumbar epidural steroid injection at the L4-5 level. Patient describes low lumbar back pain as well as bilateral hip and leg radicular symptoms as constant, dull, sharp, stabbing, intermittent. She reports having moderate to significant relief with previous epidural injections at the same level. She rates her pain today 7/10. Procedure Details:: Procedure: Lumbar epidural steroid injection under fluoroscopy Informed consent was obtained and the risks and benefits of the procedure were explained to the patient. The patient was taken to the procedure room and noninvasive monitors placed, including noninvasive blood pressure cuff and pulse oximeter. The back was viewed using C-arm Fluoroscopy and prepped using Chlo raprep as a cleansing solution and the L4-L5 interspace was palpated. Skin and subcutaneous tissues were anesthetized using lidocaine 1.5% and a 25-gauge needle. After this, an 18-gauge Touhy epidural needle was placed into the L4-L5 interspace and advanced using fluoroscopic guidance and loss of resistance to air until the epidural space was encountered. After confirmation of needle placement in the epidural space, with dye, a solution containing normal saline, 3 mL and dexamethasone 10 mg were incrementally injected into the lumbar epidural space. The patient tolerated the procedure well with no complications. The patient was observed in the Pain Clinic and then discharged home neurologically intact. Plan and Disposition:: Patient was discharged without incident.
[2025-09-08 08:49] VITALS: BP 147/72; PULSE 76; RESP 16; O2SAT 99
== END 2025-09-08 08:50 | disposition home or self-care (01) ==
PROVIDERS: PCP Internal Medicine; Visit Provider Nurse Anesthetist, Certified Registered
DX: M51.16 Intervertebral disc disorders with radiculopathy, lumbar region (principal); I25.10 Atherosclerotic heart disease of native coronary artery without angina pectoris; F32.A Depression, unspecified; J43.9 Emphysema, unspecified; K21.9 Gastro-esophageal reflux disease without esophagitis; E78.5 Hyperlipidemia, unspecified; I10 Essential (primary) hypertension; E03.9 Hypothyroidism, unspecified; E66.9 Obesity, unspecified; Z90.710 Acquired absence of both cervix and uterus; Z82.49 Family history of ischemic heart disease and other diseases of the circulatory system; Z81.8 Family history of other mental and behavioral disorders; Z87.891 Personal history of nicotine dependence; Z56.0 Unemployment, unspecified; Z91.048 Other nonmedicinal substance allergy status; Z79.899 Other long term (current) drug therapy; Z79.890 Hormone replacement therapy; Z79.82 Long term (current) use of aspirin
CPT/HCPCS: 62323; J1100